=== PATIENT | female | born 1995 | race Caucasian/White ===

== ENCOUNTER 2024-05-19 10:39 | Outpatient (OUT) | payer SELFPAY ==
--- NOTE | 2024-05-19 10:42 | US_ITS ---
The [address] [address] Patient Name: SKYLER NORIEGA MRN: [id number] date: 1995 Sex: F Assigned Patient Location: [facility] Current Patient Location: [facility] Accession/Order Number: [id number] Exam Date: 05/19/2024 10:41 Report Date: 05/19/2024 11:29 At the request of: GERALDINE HOLLIDAY Procedure: US OB transvaginal EXAMINATION: US OB transvaginal HISTORY: VIABILITY COMPARISON: No relevant comparison available. FINDINGS: GESTATIONAL SAC: Present and normal appearing. YOLK SAC: Present and normal appearing. POLE: Present and normal appearing. CARDIAC: Present. UTERUS: Normal size and appearance. OVARIES: Right: Contains a 4.5 cm cyst. Left: Normal. CERVIX: 5.4 cm in length and closed. CUL-DE-SAC: Normal. OTHER: None. AGE BY LMP: 6 weeks 1 day KIERRA BY LMP: 01/11/2025 AGE BY US CRL: 6 weeks 3 days KIERRA BY US CRL: 01/09/2025 US/US OB transvaginal IMPRESSION: 1. Single live intrauterine . Electronically authenticated by: MARIBELL LYNN Date: 05/19/2024 11:29
== END 2024-05-19 10:40 | disposition home or self-care (01) ==
LOC: NOMS 10:40
PROVIDERS: Visit Provider Obstetrics & Gynecology
DX: Z34.91 Encounter for supervision of normal pregnancy, unspecified, first trimester (principal)
CPT/HCPCS: 76817

== ENCOUNTER 2024-06-13 08:18 | Outpatient (OUT) | payer MEDICAID, SELFPAY ==
--- OUTSIDE RECORDS SUMMARY | 2024-06-13 08:25 | XMS_ITS | CCD ---
Author Organization [facility] Care Team Providers Care Catalyst Concentration Operator Name Role Phone Ct LEAL, Chayo Mina Attending Unavailable Jake Miramontes MD Primary Care Provider 1( [phone] MG ., DR CHANDLER Admitting Unavailable REQUEST, NONE LISTED Primary Care Unavaila ble MG ., DR CHANDLER Consulting Unavailable MG ., DR CHANDLER Attending Unavailable MG ., DR CHANDLER Admitting Unavailable REQUEST, NONE LISTED Primary Care Unavaila ble MG ., DR CHANDLER Consulting Unavailable MG ., DR CHANDLER Attending Unavailable MG ., DR CHANDLER Consulting Unavailable REQUEST, NONE LISTED Primary Care Unavaila ble MG ., DR CHANDLER Attending Unavailable MG ., DR CHANDLER Admitting Unavailable MG ., DR CHANDLER Admitting Unavailable REQUEST, DR MIRANDA LISTED Primary Care Unavaila ble ANNADA, DR NATALIE Yung Consulting Unavailable MG ., DR CHANDLER Attending Unavailable MG ., DR CHANDLER Consulting Unavailable REQUEST, DR NONE LISTED Consulting Unavaila BRET Way Attending Unavailable BRET MANUEL Admitting Unavailable JAKE MIRAMONTES Primary Care Unavailable Rumschlag DO, Karina K Primary Care Provider RUMSCHLAG, KARINA K Referring Unavailable RUMSCHLAG, KARINA K Primary Care Unavailable MOMITESH, HALI F Referring Unavailable RUMSCHLAG, KARINA K Primary Care Unavailable JAKE MIRAMONTES Referring Unavailable RUMSCHLAG, KARINA K Primary Care Unavailable RUMSCHLAG, KARINA K Referring Unavailable RUMSCHLAG, KARINA K Primary Care Unavailable MOOSA, HALI F Referring Unavailable RUMSCHLAG, KARINA K Primary Care Unavailable RUMSCHLAG, KARINA K Referring Unavailable RUMSCHLAG, KARINA K Primary Care Unavailable RUMSCHLAG, KARINA K Referring Unavailable RUMSCHLAG, KARINA K Primary Care Unavailable RUMSCHLAG, KARINA K Primary Care Unavailable BEN KENNEDY Attending Unavailable BEN KENNEDY Attending Unavailable BEN KENNEDY Referring Unavailable RUMSCHLAG, KARINA K Primary Care Unavailable MG, JAKE R Referring Unavailable RUMSCHLAG, KARINA K Primary Care Unavailable MG, JAKE R Referring Unavailable MG, JAKE R Primary Care Unavailable MG, JAKE R Referring Unavailable MG, JAKE R Primary Care Unavailable MG, JAKE R Referring Unavailable MG, JAKE R Primary Care Unavailable MG, JAKE R Referring Unavailable MG, JAKE R Primary Care Unavailable MG, JAKE R Referring Unavailable MG, JAKE R Primary Care Unavailable MG, JAKE R Primary Care Unavailable ROGER MCKENZIE Attending Unavailable MG, JAKE R Referring Unavailable MG, JAKE R Primary Care Unavailable MG, JAKE R Primary Care Unavailable NATALIE PATTEN Attending Unavailable DOTTIE DIAZ Referring Unavailable RUMSCHLAG, KARINA K Primary Care Unavailable RUMSCHLAG, KARINA K Referring Unavailable RUMSCHLAG, KARINA K Primary Care Unavailable MG, JAKE R Referring Unavailable RUMSCHLAG, KARINA K Primary Care Unavailable MG, JAKE R Referring Unavailable RUMSCHLAG, KARINA K Primary Care Unavailable Allergies Allergy Classification Reported Allergen(s) Allergy Type Date of Onset Reaction(s) Facility (3 sources) Latex; Translations: [LATEX] Propensity to adverse reactions to drug 0 Rash [facility] (3 sources) Sulfamethoxazole / Trimethoprim; Translations: [SULFAMETHOXAZOLE-TR IMETHOPRIM] Drug Allergy 7 Hives [facility] Work Phone: Medications Current Medications Medication Drug Class(es) Dates Sig (Normalized) Sig (Original) acetaminophen 325 mg / oxyCODONE hydrochloride 5 mg oral tablet (2 sources) Opioid Agonist Start: 07-04-2022 End: 07-11-2022 take 1 tablet by mouth every six hours as needed for pain oxyCODONE-acetamino phen (PERCOCET) 5-325 MG per tablet Indications: S/P laparoscopic sleeve gastrectomy Take 1 tablet by mouth every 6 hours as needed for Pain for up to 7 days. 28 tablet 0 07/04/2022 07/11/2022 Active Start: 07-03-2022 oxyCODONE-acet aminophen (PERCOCET) 5-325 MG per tablet 1 tablet albuterol 0.833 mg/ml / ipratropium bromide 0.167 mg/ml inhalation solution (1 source) Anticholinergic, beta2-Adrenergic Agonist Start: 07-03-2022 ipratropium-albuterol (DUONEB) nebulizer solution 1 ampule benzocaine 15 mg / menthol 3.6 mg oral lozenge (1 source) Standardized Chemical Allergen Start: 07-04-2022 benzocaine-menthol (CEPACOL SORE THROAT) lozenge 1 lozenge cyclobenzaprine hydrochloride 10 mg oral tablet (2 sources) Muscle Relaxant Start: 07-03-2022 End: 07-14-2022 take 1 tablet by mouth three times daily as needed for muscle spasms cyclobenzaprine (FLEXERIL) 10 MG tablet Take 1 tablet by mouth 3 times daily as needed for Muscle spasms 28 tablet 0 07/04/2022 07/14/2022 Active 0.4 ml enoxaparin sodium 100 mg/ml prefilled syringe (1 source) Low Molecular Weight Heparin Start: 07-04-2022 End: 07-18-2022 enoxaparin (LOVENOX) 40 MG/0.4ML Inject 0.4 mLs into the skin 2 times daily for 14 days 11.2 mL 0 07/04/2022 07/18/2022 Active famotidine 20 mg oral tablet (1 source) Histamine-2 Receptor Antagonist Start: 11-02-2023 take 1 tablet by mouth in the morning, then take 1 tablet by mouth at bedtime famotidine (PEPCID) 20 mg tablet Take 1 tablet (20 mg total) by mouth in the morning and 1 tablet (20 mg total) before bedtime. 20 tablet 0 11/02/2023 Active 1 ml heparin sodium, porcine 5000 unt/ml prefilled syringe (2 sources) Unfractionated Heparin, Anti-coagulant Start: 07-03-2022 End: 07-03-2022 heparin (porcine) injection 5,000 Units 1 ml HYDROmorphone hydrochloride 1 mg/ml cartridge (4 sources) Opioid Agonist Start: 07-03-2022 HYDROmorphone (DILAUDID) injection 1 mg Start: 07-03-2022 End: 07-03-2022 HYDROmorphone (DILAUDID) 1 M G/ML injection Start: 07-03-2022 End: 07-03-2022 HYDROmorphone (DILAUDID) inj ection 0.5 mg Start: 07-03-2022 End: 07-03-2022 HYDROmorphone (DILAUDID) inj ection 0.25 mg metFORMIN hydrochloride 500 mg oral tablet (1 source) Biguanide take 1 tablet by mouth in the morning, then take 1 tablet by mouth at bedtime metFORMIN (GLUCOPHAGE) 500 mg tablet Take 1 tablet (500 mg total) by mouth in the morning and 1 tablet (500 mg total) before bedtime. 0 Active lzoidosc-teir-FM-calc ium &mins (THERAGRAN-M) 9 mg iron-400 mcg tablet (1 source) cnfkalty-blaj-FX -ca lcium &mins (THERAGRAN-M) 9 mg iron-400 mcg tablet Take 1 tablet by mouth in the morning. 0 Active 2 ml ondansetron 2 mg/ml injection (1 source) Serotonin-3 Receptor Antagonist Start: 07-03-20 ondansetron (ZOFRAN) injection 4 mg pantoprazole 40 mg delayed release oral tablet (1 source) Proton Pump Inhibitor Start: 07-03-20 pantoprazole (PROTONIX) tablet 40 mg phenol 14 mg/ml mouthwash (1 source) Start: 07-04-20 phenol 1.4 % mouth spray 1 spray promethazine hydrochloride 25 mg oral tablet (2 sources) Phenothiazine Start: 07-04-20 End: 07-11-20 take 1 tablet by mouth every six hours as needed for nausea promethazine (PHENERGAN) 25 MG tablet Take 1 tablet by mouth every 6 hours as needed for Nausea 28 tablet 0 07/04/2022 07/11/2022 Active Start: 07-03-2022 promethazine ( PHENERGAN) tablet 25 mg 72 hr scopolamine 0.0139 mg/hr transdermal system (2 sources) Anticholinergic Start: 07-06-2022 scopolamine (TRANSDERM-SCOP) transdermal patch 1 patch Start: 07-03-2022 scopolamine (T RANSDERM-SCOP) transdermal patch 1 patch simethicone 80 mg chewable tablet (1 source) Start: 07-04-2022 simethicone (M YLICON) chewable tablet 40 mg 5 ml sodium chloride 9 mg/ml injection (3 sources) Start: 07-03-2022 0.9 % sodium c hloride infusion Start: 07-03-2022 sodium chlorid e flush 0.9 % injection 5-40 mL Completed/Discontinued Medications Medication Drug Class(es) Dates Sig (Normalized) Sig (Original) aprepitant 40 mg oral capsule (1 source) Substance P/Neurokinin-1 Receptor Antagonist Start: 07-04-2022 End: 07-04-2022 aprepitant (EMEND) capsule 80 mg calcium chloride 0.0014 meq/ml / potassium chloride 0.004 meq/ml / sodium chloride 0.103 meq/ml / sodium lactate 0.028 meq/ml injectable solution (2 sources) Start: 07-03-2022 End: 07-04-2022 lactated ringers infusion ceFAZolin (ANCEF) 2000 mg in sterile water 20 mL IV syringe (1 source) Start: 07-03-2022 End: 07-04-2022 ceFAZolin (ANCEF) 2000 mg in sterile water 20 mL IV syringe 1 ml ketorolac tromethamine 15 mg/ml cartridge (1 source) Nonsteroidal Anti-inflammatory Drug, Cyclooxygenase Inhibitor Start: 07-04-2022 End: 07-04-2022 ketorolac (TORADOL) injection 15 mg 2 ml midazolam 1 mg/ml injection (1 source) Benzodiazepine Start: 07-03-2022 End: 07-03-2022 midazolam PF (VERSED) injection 2 mg triamcinolone acetonide 0.25 mg/ml topical cream (1 source) Corticosteroid Start: 02-15-2022 End: 07-04-2022 triamcinolone (KENALOG) 0.025 % cream apply topically to affected area ON HANDS, LEGS, AND ARMS twice a... (REFER TO PRESCRIPTION NOTES). 0 02/15/2022 07/04/2022 Discontinued (Stop Taking at Discharge) Problems Active Problems Problem Classification Problem Date Documented Da te Episodic/Chronic Esophageal disorders (3 sources) Gastroesophageal reflux disease; Translations: [Gastro-esophageal reflux disease without esophagitis] Onset: 4 Chronic Essential hypertension (2 sources) Essential hypertension; Translations: [Essential (primary) hypertension] Onset: 2 01-31-2022 Chronic Female infertility (6 sources) Female infertility, unspecified; Translations: [Female infertility associated with anovulation] Onset: 3 Chronic Hemorrhage during ; abruptio placenta; placenta previa (1 source) Hemorrhage in early , unspecified; Translations: [Hemorrhage in early , unspecified] Onset: 4 Episodic Immunizations and screening for infectious disease (1 source) Encounter for screening for human papillomavirus (HPV); Translations: [ENC SCREENING HUMAN PAPILLOMAVIRUS] Onset: 3 Episodic Menstrual disorders (1 source) Amenorrhea, unspecified; Translations: [Amenorrhea, unspecified] Onset: 4 Chronic Nutritional deficiencies (1 source) Vitamin D deficiency, unspecified; Translations: [Vitamin D deficiency, unspecified] Onset: 4 Chronic Other endocrine disorders (1 source) Polycystic ovarian syndrome; Translations: [Polycystic ovarian syndrome] Onset: 4 Chronic Other female genital disorders (1 source) Abnormal uterine and vaginal bleeding, unspecified; Translations: [Abnormal uterine and vaginal bleeding, unspecified] Onset: 4 Chronic Other female genital disorders (1 source) H/O: Disorder; Translations: [Personal history of other diseases of the female genital tract] 12-18-2023 Episodic Other gastrointestinal disorders (2 sources) History of sleeve gastrectomy; Translations: [Bariatric surgery status] Onset: 2 Episodic Other nutritional; endocrine; and metabolic disorders (1 source) Obesity; Translations: [Obesity, unspecified] Chronic Other nutritional; endocrine; and metabolic disorders (1 source) Body mass index 30+ - obesity; Translations: [Obesity, unspecified] 01-31-2022 Chronic Other and delivery including normal (1 source) Encounter for test, result positive; Translations: [Encounter for test, result positive] Onset: 4 Episodic Ovarian cyst (4 sources) Unspecified ovarian cyst, right side; Translations: [UNSPECIFIED OVARIAN CYST RIGHT SIDE] Onset: 3 Episodic Residual codes; unclassified (1 source) Less than 8 weeks gestation of ; Translations: [Less than 8 weeks gestation of ] Onset: 4 Episodic Thyroid disorders (3 sources) Autoimmune thyroiditis; Translations: [Hypothyroidism, unspecified] Onset: 4 Chronic Unclassified (1 source) Vaginal Bleeding - Onset: 4 Unclassified (1 source) Chest Pain, Numbness in arm Onset: 4 Past or Other Problems Problem Classification Problem Date Documented Da te Episodic/Chronic Abdominal pain (1 source) Pelvic and perineal pain; Translations: [Pelvic and perineal pain] Onset: 12-13-2023 Episodic Biliary tract disease (2 sources) Cholecystitis, unspecified; Translations: [Calculus of gallbladder without cholecystitis without obstruction] Onset: 11-01-2023 Episodic Nonspecific chest pain (2 sources) Chest pain, unspecified; Translations: [Chest pain] Onset: 11-01-2023 Episodic Other endocrine disorders (1 source) Endocrine disorder, unspecified; Translations: [Endocrine disorder, unspecified] Onset: 2024 Episodic Other female genital disorders (1 source) Personal history of other diseases of the female genital tract; Translations: [Personal history of other diseases of the female genital tract] Onset: 2024 Episodic Other gastrointestinal disorders (2 sources) Bariatric surgery status; Translations: [Bariatric surgery status] Onset: 07-03-2022 Episodic Other gastrointestinal disorders (1 source) Diarrhea, unspecified; Translations: [Diarrhea, unspecified] Onset: 01-03-2024 Episodic Other nutritional; endocrine; and metabolic disorders (1 source) Overweight; Translations: [Overweight] Onset: 11-16-2023 Episodic Other screening for suspected conditions (not mental disorders or infectious disease) (6 sources) Encounter for screening for malignant neoplasm of cervix; Translations: [Other specified abnormal findings of blood chemistry] Onset: 2023 Episodic Residual codes; unclassified (2 sources) Acquired absence of other specified parts of digestive tract; Translations: [Acquired absence of other specified parts of digestive tract] Onset: 11-27-2023 Episodic Unclassified (1 source) Onset: 04-17-2021 04-17-2021 Results Test Name Value Interpretation Reference Range Facility CBC AND AUTO DIFFon 06-06-20 ABSOLUTE BASOPHIL 0.0 X10E9/L Normal 0.0-0.2 [facility] Comment on above: Performed By: #### Miladys CAT CMP, ####[facility] ([id number])[address] [place] [address] 79490 ABSOLUTE NEUTROPHIL 4.8 X10E9/L Normal 1.5-6.6 [facility] Comment on above: Performed By: #### Miladys CAT CMP, ####[facility] ([id number])[address] [place] [address] 34863 Basophils/100 WBC (Bld) 0.3 % Normal [facility] Comment on above: Performed By: #### Miladys CAT CMP, ####[facility] ([id number])[address] [place] [address] 45590 Eosinophils (Bld) [#/Vol] 0.4 10*3/uL Normal 0.0-0.4 [facility] Comment on above: Performed By: #### Miladys CAT CMP, ####[facility] ([id number] [place] [address] 62007 Eosinophils/100 WBC (Bld) 5.5 % Normal [facility] Comment on above: Performed By: #### Miladys CAT CMP, ####[facility] ([id number])[address] [place] [address] 87916 Erythrocyte distribution width (RBC) [Ratio] 13.1 % Normal 11.5-15.0 [facility] Comment on above: Performed By: #### Miladys CAT, CMP, ####[facility] ([id number])[address] [place] [address] 50577 Hematocrit (Bld) [Volume fraction] 32.4 % Low 35-47 [facility] Comment on above: Performed By: #### Miladys CAT CMP, ####[facility] ([id number])[address] [place] [address] 35172 Hemoglobin (Bld) [Mass/Vol] 11.2 g/dL Low 11.7-15.5 [facility] Comment on above: Performed By: #### Miladys CAT CMP, ####[facility] ([id number])[address] [place] [address] 82176 Lymphocytes (Bld) [#/Vol] 1.7 10*3/uL Normal 1.0-3.5 [facility] Comment on above: Performed By: #### Miladys CAT CMP, ####[facility] ([id number])[address] [place] [address] 87084 Lymphocytes/100 WBC (Bld) 21.9 % Normal [facility] Comment on above: Performed By: #### Miladys CAT CMP, ####[facility] ([id number])[address] [place] [address] 06587 MCH (RBC) [Entitic mass] 31.7 pg Normal 27-34 [facility] Comment on above: Performed By: #### Miladys CAT CMP, ####[facility] ([id number])[address] [place] [address] 48186 MCHC (RBC) [Mass/Vol] 34.5 g/dL Normal 32-36 [facility] Comment on above: Performed By: #### Miladys CAT CMP, ####[facility] ([id number])[address] [place] [address] 02279 MCV (RBC) [Entitic vol] 92 fL Normal 80-100 [facility] Comment on above: Performed By: #### Miladys CAT CMP, ####[facility] ([id number])[address] [place] [address] 81546 Monocytes (Bld) [#/Vol] 0.8 10*3/uL Normal 0-0.9 [facility] Comment on above: Performed By: #### Miladys CAT CMP, ####[facility] ([id number])[address] [place] [address] 92807 Monocytes/100 WBC (Bld) 10.4 % Normal [facility] Comment on above: Performed By: #### Miladys CAT CMP, ####[facility] ([id number])[address] [place] [address] 47278 Neutrophils/100 WBC (Bld) 61.9 % Normal [facility] Comment on above: Performed By: #### Miladys CAT, CMP, ####[facility] ([id number])[address] [place] [address] 05839 Platelet mean volume (Bld) [Entitic vol] 6.9 fL Low 7-12 [facility] Comment on above: Performed By: #### Miladys CAT CMP, ####[facility] ([id number])[address] [place] [address] 88281 Platelets (Bld) [#/Vol] 172 10*3/uL Normal 150-450 [facility] Comment on above: Performed By: #### Miladys CAT CMP, ####[facility] ([id number])[address] [place] [address] 62466 RBC COUNT 3.54 X10E12/L Low 3.80-5.20 [facility] Comment on above: Performed By: #### Miladys CAT CMP, ####[facility] ([id number])[address] [place] [address] 05414 WBC (Bld) [#/Vol] 7.7 10*3/uL Normal 4.0-11.0 [facility] Comment on above: Performed By: #### C EMORY, CMP, ####[facility] ([id number])[address] [place] [address] 48705 COMPREHENSIVE METABOLIC PANE Augustin 06-06-2024 Albumin [Mass/Vol] 3.2 g/dL Normal 3.2-5.3 [facility] Comment on above: Performed By: #### C EMORY, CMP, ####[facility] ([id number])[address] [place] [address] 61368 ALP [Catalytic activity/Vol] 38 U/L Low 39-130 [facility] Comment on above: Performed By: #### C BCA, CMP, ####[facility] ([id number])[address] [place] [address] [place] [address] ALT [Catalytic activity/Vol] 54 U/L High 0-31 [facility] Comment on above: Performed By: #### C BCA, CMP, ####[facility] ([id number])[address] [place] [address] [place] [address] Anion gap [Moles/Vol] 1 mmol/L Low 5-15 [facility] Comment on above: Performed By: #### C BCA, CMP, ####[facility] ([id number])[address] [place] [address] 08048 AST [Catalytic activity/Vol] 35 U/L Normal 0-41 [facility] Comment on above: Performed By: #### C BCA, CMP, ####[facility] ([id number])[address], [place] [address] Bilirubin [Mass/Vol] 0.4 mg/dL Normal 0.3-1.2 [facility] Comment on above: Performed By: #### C VINCENZO CAT, ####[facility] ([id number])[address] [place] [address] [place] [address] Calcium [Mass/Vol] 8.3 mg/dL Low 8.5-10.5 [facility] Comment on above: Performed By: #### C VINCENZO CAT, ####[facility] ([id number])[address] [place] [address] 11723 Chloride [Moles/Vol] 103 mmol/L Normal 98-109 [facility] Comment on above: Performed By: #### C VINCENZO CAT, ####[facility] ([id number])[address] [place] [address] 73054 CO2 [Moles/Vol] 26 mmol/L Normal 22-32 [facility] Comment on above: Performed By: #### C VINCENZO CAT, ####[facility] ([id number])[address] [place] [address] 05406 Creatinine [Mass/Vol] 0.64 mg/dL Normal 0.40-1.00 [facility] Comment on above: Result Comment: METH OD TRACEABLE TO IDMS STANDARD Performed By: #### C VINCENZO CAT, ####[facility] ([id number])[address] [place] [address] [place] [address] eGFR (CKD-EPI) NON-RACE DEPENDENT >90 Normal >59 [facility] Comment on above: Result Comment: Reported eGFR is based on the CKD-EPI 2020 equation that does not use a race coefficient. Performed By: #### C EMORY CMP, ####[facility] ([id number])[address] [place] [address] [place] [address] Glucose [Mass/Vol] 79 mg/dL Normal 65-99 [facility] Comment on above: Performed By: #### Miladys CAT [facility], ####[facility] ([id number])[address] [place] [address] 81367 Potassium [Moles/Vol] 3.7 mmol/L Normal 3.5-5.0 [facility] Comment on above: Performed By: #### Miladys CAT CMP, ####[facility] ([id number])[address] [place] [address] 20507 Protein [Mass/Vol] 6.1 g/dL Normal 6.0-8.0 [facility] Comment on above: Performed By: #### Miladys CAT CMP, ####[facility] ([id number])[address] [place] [address] 73961 Sodium [Moles/Vol] 130 mmol/L Low 134-146 [facility] Comment on above: Performed By: #### Miladys CAT [facility], ####[facility] ([id number])[address] [place] [address] 93182 Urea nitrogen [Mass/Vol] 15 mg/dL Normal 5-23 [facility] Comment on above: Performed By: #### Miladys CAT [facility], ####[facility] ([id number])[address] [place] [address] 57229 HCG.beta subunit IA 3rd IS Q non 06-06-2024 HCG.beta subunit Qn 019189 m[IU]/mL Normal [facility] Comment on above: Result Comment: NEW REFERENCE RANGE WEEKS (SINCE LMP) MIU/mL 3 WEEKS 5 - 50 4 WEEKS 5 - 426 5 WEEKS 18 - 7,340 6 WEEKS 1,080 - 56,500 7-8 WEEKS 7,650 - 229,000 9-12 WEEKS 25,700 - 288,000 13-16 WEEKS 13,300 - 254,000 17-24 WEEKS 4,060 - 165,400 25-40 WEEKS 3,640 - 117,000 MALES AND NON- FEMALES - <5 MIU/mL This test has been FDA approved for use in only. Elevated levels are not necessarily diagnostic for trophoblastic or nontrophoblastic neoplasms. Performed By: #### C BCA, CMP, [id number] ####[facility] ([id number])[address] [place] [address] 26760 URN MACROSCOPIC NURon 2023 BILIRUBIN CHLOÉ Negative Normal NEG [facility] Comment on above: Performed By: #### N UM ####[facility] ([id number])[address] [place] [address] 87120 BLOOD/HGB CHLOÉ Trace Abnormal NEG [facility] Comment on above: Performed By: #### N UM ####[facility] ([id number])[address] [place] [address] 43033 GLUCOSE CHLOÉ Negative Normal NEG [facility] Comment on above: Performed By: #### N UM ####[facility] ([id number])[address] [place] [address] 72750 KETONES CHLOÉ Negative Normal NEG [facility] Comment on above: Performed By: #### N UM ####[facility] ([id number])[address] [place] [address] 72190 LEUKOCYTE ESTERASE CHLOÉ Negative Normal NEG [facility] Comment on above: Performed By: #### N UM ####[facility] ([id number])[address] [place] [address] 05324 NITRITE CHLOÉ Negative Normal NEG [facility] Comment on above: Performed By: #### N UM ####[facility] ([id number])[address] [place] [address] [place] [address] PH CHLOÉ 5.0 Normal 5.0-8.5 [facility] Comment on above: Performed By: #### N UM ####[facility] ([id number])[address] [place] [address] [place] [address] PROTEIN CHLOÉ Negative Normal NEG [facility] Comment on above: Performed By: #### N UM ####[facility] ([id number])[address] [place] [address] [place] [address] SPECIFIC GRAVITY CHLOÉ >=1.030 Normal 1.003-1.035 [facility] Comment on above: Performed By: #### N UM ####[facility] ([id number])[address] [place] [address] UROBILINOGEN CHLOÉ 0.2 eu/dL Normal <1.1 [facility] Comment on above: Performed By: #### N UM ####[facility] ([id number])[address] [place] [address] HCG ( test) Ql (U)o n 05-27-2024 Beta HCG ( test) Ql (U) Positive Abnormal NEG [facility] Comment on above: Performed By: #### 2 106-3 ####[facility] ([id number])[address] [place] [address] [place] [address] URN MACROSCOPIC NURon 2023 BILIRUBIN CHLOÉ Negative Normal NEG [facility] Comment on above: Performed By: #### N UM ####[facility] ([id number])[address] [place] [address] [place] [address] BLOOD/HGB CHLOÉ Small Abnormal NEG [facility] Comment on above: Performed By: #### N UM ####[facility] ([id number])[address] [place] [address] [place] [address] GLUCOSE CHLOÉ Negative Normal NEG [facility] Comment on above: Performed By: #### N UM ####[facility] ([id number])[address] [place] [address], [place] [address] KETONES CHLOÉ Negative Normal NEG [facility] Comment on above: Performed By: #### N UM ####[facility] ([id number])[address] [place] [address] [place] [address] LEUKOCYTE ESTERASE CHLOÉ Negative Normal NEG [facility] Comment on above: Performed By: #### N UM ####[facility] ([id number])[address] [place] [address] NITRITE CHLOÉ Negative Normal NEG [facility] Comment on above: Performed By: #### N UM ####[facility] ([id number])[address] [place] [address] PH CHLOÉ 5.5 Normal 5.0-8.5 [facility] Comment on above: Performed By: #### N UM ####[facility] ([id number])[address] [place] [address] [place] [address] PROTEIN CHLOÉ Negative Normal NEG [facility] Comment on above: Performed By: #### N UM ####[facility] ([id number])[address] [place] [address] [place] [address] SPECIFIC GRAVITY CHLOÉ >=1.030 Normal 1.003-1.035 [facility] Comment on above: Performed By: #### N UM ####[facility] ([id number])[address] [place] [address] [place] [address] UROBILINOGEN CHLOÉ 1.0 eu/dL Normal <1.1 [facility] Comment on above: Performed By: #### N UM ####[facility] ([id number])[address] [place] [address] [place] [address] HCG.beta subunit IA 3rd IS Q non 05-14-2024 [place] [address] m[IU]/mL Normal [facility] Comment on above: Result Comment: NEW REFERENCE RANGE WEEKS (SINCE LMP) MIU/mL 3 WEEKS 5 - 50 4 WEEKS 5 - 426 5 WEEKS 18 - 7,340 6 WEEKS 1,080 - 56,500 7-8 WEEKS 7,650 - 229,000 9-12 WEEKS 25,700 - 288,000 13-16 WEEKS 13,300 - 254,000 17-24 WEEKS 4,060 - 165,400 25-40 WEEKS 3,640 - 117,000 MALES AND NON- FEMALES - <5 MIU/mL This test has been FDA approved for use in only. Elevated levels are not necessarily diagnostic for trophoblastic or nontrophoblastic neoplasms. Performed By: #### C , 91996-6, [facility] #### [facility] ([id number]) [address] [place] [address], [address] [place] [address] HCG.beta subunit IA 3rd IS Q non 05-11-2024 [place] [address] m[IU]/mL Normal [facility] Comment on above: Result Comment: NEW REFERENCE RANGE WEEKS (SINCE LMP) MIU/mL 3 WEEKS 5 - 50 4 WEEKS 5 - 426 5 WEEKS 18 - 7,340 6 WEEKS 1,080 - 56,500 7-8 WEEKS 7,650 - 229,000 9-12 WEEKS 25,700 - 288,000 13-16 WEEKS 13,300 - 254,000 17-24 WEEKS 4,060 - 165,400 25-40 WEEKS 3,640 - 117,000 MALES AND NON- FEMALES - <5 MIU/mL This test has been FDA approved for use in only. Elevated levels are not necessarily diagnostic for trophoblastic or nontrophoblastic neoplasms. Performed By: #### Miladys DIALLO, 93966-2, AGUILA, P #### [facility] ([id number]) [address], [address] [place] [address] TSH Qnon 05-11-2024 TSH 1.06 uIU/mL Normal 0.49-4.67 [facility] Comment on above: Performed By: #### Miladys DIALLO, 75259-0, THYR, P #### [facility] ([id number]) [address], [address] [place] [address] HCG.beta subunit IA 3rd IS Q non 05-08-2024 HCG.beta subunit Qn 6446 m[IU]/mL Normal [facility] Comment on above: Result Comment: NEW REFERENCE RANGE WEEKS (SINCE LMP) MIU/mL 3 WEEKS 5 - 50 4 WEEKS 5 - 426 5 WEEKS 18 - 7,340 6 WEEKS 1,080 - 56,500 7-8 WEEKS 7,650 - 229,000 9-12 WEEKS 25,700 - 288,000 13-16 WEEKS 13,300 - 254,000 17-24 WEEKS 4,060 - 165,400 25-40 WEEKS 3,640 - 117,000 MALES AND NON- FEMALES - <5 MIU/mL This test has been FDA approved for use in only. Elevated levels are not necessarily diagnostic for trophoblastic or nontrophoblastic neoplasms. Performed By: #### Miladys DIALLO, 74145-4, THYEber, P #### [facility] ([id number]) [address], [address] [place] [address] HCG.beta subunit IA 3rd IS Q non 05-06-2024 [place]CG.[place] subunit Qn 3140 m[IU]/mL Normal [facility] Comment on above: Result Comment: NEW REFERENCE RANGE WEEKS (SINCE LMP) MIU/mL 3 WEEKS 5 - 50 4 WEEKS 5 - 426 5 WEEKS 18 - 7,340 6 WEEKS 1,080 - 56,500 7-8 WEEKS 7,650 - 229,000 9-12 WEEKS 25,700 - 288,000 13-16 WEEKS 13,300 - 254,000 17-24 WEEKS 4,060 - 165,400 25-40 WEEKS 3,640 - 117,000 MALES AND NON- FEMALES - <5 MIU/mL This test has been FDA approved for use in only. Elevated levels are not necessarily diagnostic for trophoblastic or nontrophoblastic neoplasms. Performed By: #### Miladys DIALLO, 32248-9, PEARL SHEEHAN #### [facility] ([id number]) [address] [place] [address], [address] [place] [address] HCG.beta subunit IA 3rd IS Q non 05-01-2024 HCG.beta subunit Qn 560 m[IU]/mL Normal [facility] Comment on above: Result Comment: NEW REFERENCE RANGE WEEKS (SINCE LMP) MIU/mL 3 WEEKS 5 - 50 4 WEEKS 5 - 426 5 WEEKS 18 - 7,340 6 WEEKS 1,080 - 56,500 7-8 WEEKS 7,650 - 229,000 9-12 WEEKS 25,700 - 288,000 13-16 WEEKS 13,300 - 254,000 17-24 WEEKS 4,060 - 165,400 25-40 WEEKS 3,640 - 117,000 MALES AND NON- FEMALES - <5 MIU/mL This test has been FDA approved for use in only. Elevated levels are not necessarily diagnostic for trophoblastic or nontrophoblastic neoplasms. Performed By: #### Miladys DIALLO, 47202-9, PEARL SHEEHAN #### [facility] ([id number]) [address], [address] [place] [address] HCG.beta subunit IA 3rd IS Q non 04-28-2024 HCG.beta subunit Qn 159 m[IU]/mL Normal [facility] Comment on above: Result Comment: NEW REFERENCE RANGE WEEKS (SINCE LMP) MIU/mL 3 WEEKS 5 - 50 4 WEEKS 5 - 426 5 WEEKS 18 - 7,340 6 WEEKS 1,080 - 56,500 7-8 WEEKS 7,650 - 229,000 9-12 WEEKS 25,700 - 288,000 13-16 WEEKS 13,300 - 254,000 17-24 WEEKS 4,060 - 165,400 25-40 WEEKS 3,640 - 117,000 MALES AND NON- FEMALES - <5 MIU/mL This test has been FDA approved for use in only. Elevated levels are not necessarily diagnostic for trophoblastic or nontrophoblastic neoplasms. Performed By: #### C Bisi DIALLO31-1, THYEber, PEARL #### [facility] ([id number]) [address], [address] [place] [address] FREE T3on 02-14-2024 Free T3 [Mass/Vol] 3.94 pg/mL High 2.50-3.90 [facility] Comment on above: Performed By: #### Bisi Hook MP31-1, THYEber, AHP #### [facility] ([id number]) [address], [address] [place] [address] THYROID PROFILEon 02-14-2024 Free T4 [Mass/Vol] 0.91 ng/dL Normal 0.61-1.60 [facility] Comment on above: Performed By: #### Mag Hook MP-1, THYEber, AHP #### [facility] ([id number]) [address], [address] [place] [address] TSH 0.52 uIU/mL Normal 0.49-4.67 [facility] Comment on above: Performed By: #### Mag Hook MP-1, THYR, AHP #### [facility] ([id number]) [address], [address] [place] [address] THYROPEROXIDASE ABon 024 TPO Ab Qn 403 [IU]/mL High <10 [facility] Comment on above: Performed By: #### C YOEL 88017-9, THYEber, AHKeenan #### [facility] ([id number]) [address] [facility], [address] [place] [address] Thyroid stimulating immunogl obulins Qn (S)on 02-14-2024 TSI See Below Normal [facility] Comment on above: Result Comment: NOTE TEST RESULT FLAG UNIT REF.RANGE ------ TSI Qualitative Positive A Negative TSI 1.28 H IU/L <0.55 Thyroid Stimulating Immunoglobulin test is used as an aid in diagnosis of autoimmune hyperthyroidism especially in patients with Grave's orbitopathy and dermopathy. Low positive TSH receptor stimulating antibody levels may occasionally be found in patients with autoimmune hypothyroidism. Clinical correlation is required. Test Performed By: [facility] [employer] [address] [place] [address] Shafting Cleaner: Eloy Dangelo III, M.D. CLIA #[id number] Performed By: #### Miladys DIALLO 31677-1, THYEber, PEARL #### [facility] ([id number]) [address], [address] [place] [address] ACUTE HEPATITIS PANELon 12-27 ANTI HCV W/PCR REFLX Non-Reactive Normal NRCT [facility] Comment on above: Result Comment: If recent infection suspected, recommend repeat testing (>2 months). Nmvgwg-gq-mfestu ratio is <0.80. Performed By: #### C YOEL, 32188-2, THYEber, DEEPAP #### [facility] ([id number]) [address], [address] [place] [address] HEPATITIS A IGM Non-Reactive Normal NRCT [facility] Comment on above: Performed By: #### C YOEL, 22179-2, THYR, AHP #### [facility] ([id number]) [address], [address] [place] [address] HEPATITIS B CORE IGM Negative Normal NEG [facility] Comment on above: Performed By: #### [place], [address]-6, THYR, AHP #### [facility] ([id number]) [address], [address] [place] [address] HEPATITIS B SURF AG Negative Normal NEG [facility] Comment on above: Performed By: #### C YOEL, 41871-3, THYR, AHP #### [facility] ([id number]) [address], [address] [place] [address] COMPREHENSIVE METABOLIC PANE Augustin 2024 Albumin [Mass/Vol] 3.8 g/dL Normal 3.2-5.3 [facility] Comment on above: Performed By: #### C YOEL, 58864-1, THYR, AHP #### [facility] ([id number]) [address], [address] [place] [address] ALP [Catalytic activity/Vol] 48 U/L Normal 39-130 [facility] Comment on above: Performed By: #### [place], 83335-5, THYR, AHP #### [facility] ([id number]) [address], [address] [place] [address] ALT [Catalytic activity/Vol] 38 U/L High 0-31 [facility] Comment on above: Performed By: #### C YOEL, 63484-4, THYR, AHP #### [facility] ([id number]) [address], [address] [place] [address] Anion gap [Moles/Vol] 9 mmol/L Normal 5-15 [facility] Comment on above: Performed By: #### C YOEL 80000-3, THYR, AHP #### [facility] ([id number]) [address], [address] [place] [address] AST [Catalytic activity/Vol] 32 U/L Normal 0-41 [facility] Comment on above: Performed By: #### Miladys DIALLO 94891-0, THYR, AHP #### [facility] ([id number]) [address], [address] [place] [address] Bilirubin [Mass/Vol] 0.9 mg/dL Normal 0.3-1.2 [facility] Comment on above: Performed By: #### Miladys DIALLO 48505-4, THYR, AHP #### [facility] ([id number]) [address], [address] [place] [address] Calcium [Mass/Vol] 8.8 mg/dL Normal 8.5-10.5 [facility] Comment on above: Performed By: #### Miladys DIALLO 36669-6, THYR, AHP #### [facility] ([id number]) [address], [address] [place] [address] Chloride [Moles/Vol] 104 mmol/L Normal 98-109 [facility] Comment on above: Performed By: #### Miladys DIALLO 57583-3, THYR, AHP #### [facility] ([id number]) [address], [address] [place] [address] CO2 [Moles/Vol] 26 mmol/L Normal 22-32 [facility] Comment on above: Performed By: #### Miladys DIALLO, 24426-8, THYR, AHP #### [facility] ([id number]) [address], [address] [place] [address] Creatinine [Mass/Vol] 0.64 mg/dL Normal 0.40-1.00 [facility] Comment on above: Result Comment: METH OD TRACEABLE TO IDMS STANDARD Performed By: #### C YOEL 75067-5, THYEber, PEARL #### [facility] ([id number]) [address], [address] [place] [address] eGFR (CKD-EPI) NON-RACE DEPENDENT >90 Normal >59 [facility] Comment on above: Result Comment: Reported eGFR is based on the CKD-EPI 2020 equation that does not use a race coefficient. Performed By: #### C Bisi DIALLO31-1, THYEber, PEARL #### [facility] ([id number]) [address], [address] [place] [address] Glucose [Mass/Vol] 80 mg/dL Normal 65-99 [facility] Comment on above: Performed By: #### Miladys DIALLO 62661-2, THYR, AHP #### [facility] ([id number]) [address], [address] [place] [address] Potassium [Moles/Vol] 3.7 mmol/L Normal 3.5-5.0 [facility] Comment on above: Performed By: #### C YOEL, 56922-0, THYR, AHP #### [facility] ([id number]) [address], [address] [place] [address] Protein [Mass/Vol] 6.8 g/dL Normal 6.0-8.0 [facility] Comment on above: Performed By: #### C YOEL 25013-7, THYR, AHP #### [facility] ([id number]) [address], [address] [place] [address] Sodium [Moles/Vol] 139 mmol/L Normal 134-146 [facility] Comment on above: Performed By: #### Miladys DIALLO 93823-8, THYR, AHP #### [facility] ([id number]) [address], [address] [place] [address] Urea nitrogen [Mass/Vol] 11 mg/dL Normal 5-23 [facility] Comment on above: Performed By: #### Miladys DIALLO, 50624-6, PEARL SHEEHAN #### [facility] ([id number]) [address], [address] [place] [address] Lipid 1996 panelon 4 Cholesterol [Mass/Vol] 94 mg/dL Low 150-200 [facility] Comment on above: Performed By: #### Miladys DIALLO, 13426-4, PEARL SHEEHAN #### [facility] ([id number]) [address], [address] [place] [address] Cholesterol in HDL [Mass/Vol] 43 mg/dL Normal >39 [facility] Comment on above: Result Comment: HDL <40 mg/dL - High Risk HDL > or = 40mg/dL- Desirable HDL >60 mg/dL - Negative Risk Performed By: #### Miladys DIALLO, 07921-6, PEARL SHEEHAN #### [facility] ([id number]) [address], [address] [place] [address] Cholesterol in LDL [Mass/Vol] 39 mg/dL Normal <130 [facility] Comment on above: Result Comment: LDL <100 mg/dL - Desirable LDL >160 mg/dL - High Risk Performed By: #### Miladys DIALLO, 67024-2, AGUILA, PEARL #### [facility] ([id number]) [address], [address] [place] [address] Cholesterol in VLDL [Mass/Vol] 12 mg/dL Normal 0-30 [facility] Comment on above: Performed By: #### Miladys DIALLO 40702-0, PEARL SHEEHAN #### [facility] ([id number]) [address], [address] [place] [address] CHOLESTEROL:HDL 2.2 Normal 1.0-5.0 [facility] Comment on above: Performed By: #### Miladys DIALLO 79666-1, PEARL SHEEHAN #### [facility] ([id number]) [address], [address] [place] [address] Triglyceride [Mass/Vol] 58 mg/dL Normal 27-150 [facility] Comment on above: Performed By: #### Miladys DIALLO, 75169-3, PEARL SHEEHAN #### [facility] ([id number]) [address], [address] [place] [address] Mullerian inhibiting substan ce [Mass/Vol]on 2024 ANTI MULLERIAN HORM See Below Normal [facility] Comment on above: Result Comment: NOTE TEST RESULT FLAG UNIT REF.RANGE ------ Anti Mclean Hormone 0.54 L ng/mL 0.58-8.13 Test Performed By: [facility] [employer] [address] [place] [address] Shafting Cleaner: Patti Jacobs III #[id number] Performed By: ###[place], [address]-3, AGUILA, PEARL #### [facility] ([id number]) [address], [address] [place] [address] Selenium [Mass/Vol]on 2023 SELENIUM, SER/PLASMA 108.6 ug/L Normal 23.0-190.0 [facility] Comment on above: Result Comment: NOTE INTERPRETIVE INFORMATION: Selenium, Serum or Plasma Elevated results may be due to contamination from skin or other collection-related issues, including the use of a noncertified metal-free collection/transport tube. If contamination concerns exist due to elevated levels of serum/plasma selenium, confirmation with a second specimen collected in a certified metal-free tube is recommended. Serum selenium levels can be used in the determination of deficiency or toxicity. Plasma and serum contains 75 percent of the selenium measured in whole blood and reflects recent dietary intake. Selenium deficiency can occur endemically or as a result of sustained TPN or restricted diets and has been associated with cardiomyopathy and may exacerbate hypothyroidism. Selenium toxicity is relatively rare. Excess intake of selenium can result in symptoms consistent with selenosis and include gastrointestinal upset, hair loss, white blotchy nails, and mild nerve damage. This test was developed and its performance characteristics determined by [employer]. It has not been cleared or approved by the [place] Food and Drug Administration. This test was performed in a CLIA certified laboratory and is intended for clinical purposes. Performed By: [facility] [address] [place] [address] Shafting Cleaner: Deangelo Rosario MD, PhD CLIA Number: [id number] Performed By: #### C YOEL, 10466-8, THYR, AHP #### [facility] ([id number]) [address], [address] [place] [address] THYROID PROFILEon 2024 Free T4 [Mass/Vol] 0.67 ng/dL Normal 0.61-1.60 [facility] Comment on above: Performed By: #### C YOEL, 11538-8, THYR, AHP #### [facility] ([id number]) [address], [address] [place] [address] TSH 2.55 uIU/mL Normal 0.49-4.67 [facility] Comment on above: Performed By: #### C YOEL, 63469-2, THYR, AHP #### [facility] ([id number]) [address], [address] [place] [address] VITAMIN E, SER/PLon 01-24-20 VIT E(ALPHA-TOCOPHEROL) 7.6 mg/L Normal 5.5-18.0 [facility] Comment on above: Result Comment: NOTE This test was developed and its performance characteristics determined by [facility] [employer]. It has not been cleared or approved by the [place] Food and Drug Administration. This test was performed in a CLIA certified laboratory and is intended for clinical purposes. Performed By: #### Miladys DIALLO 48422-6, AGUILA, DEEPAP #### [facility] ([id number]) [address], [address] [place] [address] VIT E(GAMMA-TOCOPHEROL) 0.3 mg/L Normal 0.0-6.0 [facility] Comment on above: Result Comment: NOTE Performed By: [facility] [address] [place] [address] Shafting Cleaner: Deangelo Rosario MD, PhD CLIA Number: [id number] Performed By: #### Miladys DIALLO 05447-6, THYR, AHP #### [facility] ([id number]) [address], [address] [place] [address] LIVER PANELon 01-18-2024 Albumin [Mass/Vol] 3.8 g/dL Normal 3.2-5.3 [facility] Comment on above: Performed By: #### Miladys DIALLO 59792-5, AGUILA, AHP #### [facility] ([id number]) [address], [address] [place] [address] ALP [Catalytic activity/Vol] 44 U/L Normal 39-130 [facility] Comment on above: Performed By: #### Miladys DIALLO 27238-1, THYR, AHP #### [facility] ([id number]) [address], [address] [place] [address] ALT [Catalytic activity/Vol] 33 U/L High 0-31 [facility] Comment on above: Performed By: #### Bisi Hook MP31-1, THYR, AHP #### [facility] ([id number]) [address], [address] [place] [address] AST [Catalytic activity/Vol] 30 U/L Normal 0-41 [facility] Comment on above: Performed By: #### C YOEL, 02209-0, THYR, AHP #### [facility] ([id number]) [address], [address] [place] [address] Bilirubin [Mass/Vol] 0.7 mg/dL Normal 0.3-1.2 [facility] Comment on above: Performed By: #### C Bisi DIALLO31-1, THYR, AHP #### [facility] ([id number]) [address], [address] [place] [address] Bilirubin.direct [Mass/Vol] 0.2 mg/dL Normal 0.0-0.4 [facility] Comment on above: Performed By: #### C YOEL, 46666-5, THYR, AHP #### [facility] ([id number]) [address], [address] [place] [address] Protein [Mass/Vol] 6.7 g/dL Normal 6.0-8.0 [facility] Comment on above: Performed By: #### C YOEL, 76195-1, THYR, AHP #### [facility] ([id number]) [address], [address] [place] [address] MAGNESIUMon 01-18-2024 Magnesium [Mass/Vol] 1.7 mg/dL Low 1.8-2.6 [facility] Comment on above: Performed By: #### C YOEL, 40163-5, THYR, AHP #### [facility] ([id number]) [address], [address] [place] [address] TSH Qnon 01-18-2024 TSH 1.07 uIU/mL Normal 0.49-4.67 [facility] Comment on above: Performed By: #### C YOEL, 91751-5, THYR, P #### [facility] ([id number]) [address], [address] [place] [address] Vitamin D+Metabolites [Mass/ Vol]on 01-18-2024 VITAMIN D 25 HYD TOT 86.7 ng/mL Normal 30-100 [facility] Comment on above: Result Comment: Vitamin D status 25 [place] Vitamin D Deficiency <20 ng/mL Insufficiency 20-29 ng/mL Sufficiency 30-100 ng/mL Toxicity >100 ng/mL NOTE: A pediatric reference range has not been established by the manager recruiting of this kit. The [employer] recommends a Vitamin D level of = or >20ng/mL in infants and children. Performed By: #### Miladys DIALLO, [id number], THYR, [facility] #### [facility] ([id number]) [address], [address] [place] [address] US THYROIDon 01-06-2024 US THYROID US THYROID CLINICAL INFORMATION: T3 thyrotoxicosis. TECHNIQUE: Real time sonography of the thyroid gland performed. COMPARISON: No relevant prior studies available. FINDINGS: Thyroid size: Normal Right thyroid lobe measures: 3.8 x 1.3 x 1.7 cm Left thyroid lobe measures: 3.9 x 1.7 x 1.4 cm Overall thyroid texture: Heterogeneous with some mild increased blood flow throughout the gland. IMPRESSION: No discrete nodule or mass with mild diffuse hyperemia which can be seen with Graves' disease and/or thyroiditis. ACR TI-RADS recommendations: TR5 (greater than or equal to 7 points) - FNA if greater than or equal to 1cm, follow-up ultrasound if nodule is 0.5 - 0.9 cm every year for 5 years. TR4 (4 - 6 points) - FNA if greater than or equal to 1.5 cm, follow-up ultrasound if nodule is 1 -1.4 cm at 1, 2, 3 and 5 years. TR3 (3 points) - FNA if greater than or equal to 2.5 cm, follow-up ultrasound if nodule is 1.5 -2.4 cm at 1, 3 and 5 years. TR2 (2 points) & TR1 (0 points) - No FNA or follow-up. Finalized by Nikos Friend MD on 01/06/2024 6:53 AM Normal [facility] FREE T3on 01-03-2024 Free T3 [Mass/Vol] 3.48 pg/mL Normal 2.50-3.90 [facility] Comment on above: Performed By: #### [place], [address]-1, THYR, AHP #### [facility] ([id number]) [address] [place] [address], [address] [place] [address] Reference Lab Test IDon 03-0 CELIAC COMP CASCADE SEE COMMENTS 01/10/2024 10:26 PM Normal [facility] Comment on above: Result Comment: NOTE Test Result Flag Unit RefValue -- Celiac Disease Comprehensive Casc Immunoglobulin A (IgA) 261 mg/dL 61 - 356 , S DQ alpha 1 02:01, 03 Not Applicable DQ beta 1 02:02, 03:02 Not Applicable DQ Serologic Equivalent: 2, 8 Celiac gene pairs Yes present? Method: Molecular typing of HLA antigens performed using reverse SSOP and/or sequencing methods, reported as serological equivalents and low to intermediate resolution molecular values. For convenience, when not defined in the WHO Nomenclature a laboratory defined serologic equivalent has been provided. Based on the catalog of common, intermediate, and well-documented alleles in the world population(CIWD 3.0 Cecile RICE et.al, HLA. 2020:516-531), certain intermediate or common alleles in some ethnicities may not be resolved. Kindly contact laboratory if ethnic specific resolution is required. This test has been modified from the manufacturers instructions. Its performance characteristics were determined by [facility] in a manner consistent with CLIA requirements. This test has not been cleared or approved by the U.S. Food and Drug Administration. CLIA: [id number] CLIA Professor Of Social Work: ALAN LOUIS MD,PhD Celiac Disease See Note Interpretation See Comment: Celiac disease probable. Consider biopsy. Test Performed by: [facility] [address] [id number] Professor Of Social Work: Alan Louis M.D. Ph.D.; CLIA# [id number] Test Performed by: [facility] [address] [place] [address] Professor Of Social Work: Alan Louis M.D. Ph.D.; CLIA# [id number] Performed By: #### C YOEL, 23495-2, THYR, AHP #### [facility] ([id number]) [address] [facility], [address] [place] [address] THYROID PROFILEon 01-03-2024 Free T4 [Mass/Vol] 0.82 ng/dL Normal 0.61-1.60 [facility] Comment on above: Performed By: #### C YOEL, 32216-8, THYR, AHP #### [facility] ([id number]) [address] [facility], [address] [place] [address] TSH 0.41 uIU/mL Low 0.49-4.67 [facility] Comment on above: Performed By: #### Miladys DIALLO, 70312-1, THYR, AHP #### [facility] ([id number]) [address] [facility], [address] [place] [address] tTG IgA IA Qn (S)on 01-03-20 24 ENDOMYSIAL ABS IGA Negative Normal Negative [facility] Comment on above: Result Comment: NOTE A negative serum IgA endomysial antibody is usually seen in normal individuals, however a diagnosis of celiac disease, dermatitis herpetiformis and other gluten sensitive disorders cannot be completely excluded, as this test may be negative in a subset of individuals with these disorders. If the clinical suspicion for one of these disorders is high, recommend further testing for gluten sensitivity as indicated by the Celiac Disease Comprehensive [place] ([place] Test Unit Code CDCOM). In addition serum IgA endomysial antibody may also be negative in gluten-sensitive patients (with celiac disease, dermatitis herpetiformis or other gluten-sensitive disorders), who adhere to a strict gluten-free diet. ADDITIONAL INFORMATION This test has been modified from the manager recruiting's instructions. Its performance characteristics were determined by [facility] in a manner consistent with CLIA requirements. This test has not been cleared or approved by the U.S. Food and Drug Administration. Test Performed by: [place] [address] Professor Of Social Work: Alan Louis M.D. Ph.D.; CLIA# [id number] Performed By: #### Miladys DIALLO, 80934-1, PEARL SHEEHAN #### [facility] ([id number]) [address] [facility], [address] [place] [address] FREE T3on 12-21-2023 Free T3 [Mass/Vol] 3.75 pg/mL Normal 2.50-3.90 [facility] Comment on above: Performed By: #### Miladys DIALLO, 66424-8, PEARL SHEEHAN #### [facility] ([id number]) [address], [address] [place] [address] Mullerian inhibiting substan ce [Mass/Vol]on 12-21-2023 ANTI MULLERIAN HORM See Below Normal [facility] Comment on above: Result Comment: NOTE TEST RESULT FLAG UNIT REF.RANGE ------ Anti Mclean Hormone 0.37 L ng/mL 0.58-8.13 Test Performed By: [facility] [employer] [address] [place] [address] Shafting Cleaner: Eloy Dangelo III, M.D. CLIA #[id number] Performed By: #### C YOEL, 31201-6, THYR, AHP #### [facility] ([id number]) [address] [address] [place] [address] THYROID PROFILEon 12-21-2023 Free T4 [Mass/Vol] 0.94 ng/dL Normal 0.61-1.60 [facility] Comment on above: Performed By: #### Miladys DIALLO, 43931-0, THYR, AHP #### [facility] ([id number]) [address] [facility] [address] [place] [address] TSH 0.19 uIU/mL Low 0.49-4.67 [facility] Comment on above: Performed By: #### Miladys DIALLO, 47000-7, THYR, AHP #### [facility] ([id number]) [address], [address] [place] [address] THYROPEROXIDASE ABon 024 TPO Ab Qn 415 [IU]/mL High <10 [facility] Comment on above: Performed By: #### Miladys DIALLO, 71587-5, THYR, AHP #### [facility] ([id number]) [address] [facility] [address] [place] [address] Thyroid stimulating immunogl obulins Qn (S)on 12-21-2023 TSI See Below Normal [facility] Comment on above: Result Comment: NOTE TEST RESULT FLAG UNIT REF.RANGE ------ TSI Qualitative Positive A Negative TSI 1.84 H IU/L <0.55 Thyroid Stimulating Immunoglobulin test is used as an aid in diagnosis of autoimmune hyperthyroidism especially in patients with Grave's orbitopathy and dermopathy. Low positive TSH receptor stimulating antibody levels may occasionally be found in patients with autoimmune hypothyroidism. Clinical correlation is required. Test Performed By: [facility] [employer] [address] [place] [address] Shafting Cleaner: Eloy Dangelo III, M.D. CLIA #[id number] Performed By: ###[place] [address]-3, PEARL SHEEHAN #### [facility] ([id number]) [address] [facility], [address] [place] [address] Mullerian inhibiting substan ce [Mass/Vol]on 12-13-2023 ANTI MULLERIAN HORM See Below Normal [facility] Comment on above: Result Comment: NOTE TEST RESULT FLAG UNIT REF.RANGE ------ Anti Mclean Hormone 0.31 L ng/mL 0.58-8.13 Test Performed By: [facility] [employer] [address] [place] [address] Shafting Cleaner: Eloy Dangelo III, M.D. CLIA #[id number] Performed By: ###[place] [address]-1, PEARL SHEEHAN #### [facility] ([id number]) [address] [facility], [address] [place] [address] Progesterone [Mass/Vol]on PROGESTERONE 3.5 ng/mL [facility] Comment on above: Result Comment: FEMALES: 1st Tri: 4.7-50.7 ng/ml 2nd Tri: 19.4-45.3 ng/ml MENSTRUATING FEMALES: Follicular: 0.3-1.5 ng/ml Mid Luteal: 5.2-18.6 ng/ml [place]: <0.1-0.8 ng/ml Performed By: #### Miladys DIALLO, 51280-2, AGUILA P #### [facility] ([id number]) [address], [address] [place] [address] US PELVIC WITH TRANSVAGINALo n 12-13-2023 US PELVIC WITH TRANSVAGINAL US PELVIC WITH TRANSVAGINAL Clinical history: Pelvic pain Findings:Transabdomin al ultrasound was performed of the pelvis.. Endovaginal sonography was also performed to better evaluate the pelvic and adnexal structures.. Uterus measures 8.7 cm in length and 4.3 cm AP diameter. Myometrium unremarkable. Endometrium measures 5.5 mm. Right ovary 5.8 x 3.6 x 4.8 cm. Left ovary 3.1 x 2.8 x 3.6 cm. Bilateral cystic masses. Cyst within the right ovary measures 4.9 x 3.9 x 3.5 cm. Partially calcified. Other surrounding follicles present. Largest cyst left ovary measures 1.8 x 1.3 x 1.7 cm. This is probably undergoing involution. Small amount of free fluid in the cul-de-sac.. Impression: Complex right ovarian cyst probably unchanged given differences in technique when compared with the prior exam of 01/02/2023. This warrants continued imaging surveillance given the sonographic appearance. Specifically follow-up ultrasound in 3-4 months is advised. Finalized by Nikos Friend MD on 12/13/2023 6:28 PM [facility] Surgical Pathology Reporton 11-27-2023 Surgical Pathology Report (NOTE) Path Number: [id number] -- Diagnosis -- GALLBLADDER, CHOLECYSTECTOMY: -CHRONIC CHOLECYSTITIS -CHOLESTEROLOSIS -CHOLELITHIASIS Carlos A Olson D.O. Electronically Signed [facility]/11/28/2023 Clinical Information Pre-Op Diagnosis: CHOLECYSTITIS Operative Findings: GALLBLADDER AND CONTENTS Operation Performed: XI ROBOTIC LAPAROSCOPIC CHOLECYSTECTOMY, LIVER BIOPSY, POSSIBLE OPEN kb Source of Specimen A: GALLBLADDER AND CONTENTS Gross Description PHILLIP AVALOS GALLBLADDER AND CONTENTS Received in formalin is an 8.0 x 2.6 x 2.5 cm intact and distended gallbladder. The serosa is lawler-pink, finely vascularized and smooth, while the adventitia is finely roughened. There is a brown, finely trabeculated flat mucosa with an average wall thickness of 0.2 cm. Within the lumen is green bile admixed with orange-brown choleliths (ranging from 0.1 to 0.7 cm). No lesions or periductal lymph nodes are identified. Branch Office Administrator sections 1c. bladimir Peggy Naylor/kb2:11/27/2023 Microscopic Description Microscopic examination performed. Processing Lab: [address] [address] Interpretation Performed at [address] [address] SURGICAL PATHOLOGY CONSULTATION Patient Name: PHILLIP AVALOS [facility] Rec: [id number] [facility] ANATOMIC PATHOLOGY [address] [facility] [place], [place] [address] Normal [facility] COMPREHENSIVE METABOLIC PANE Augustin 11-16-2023 Albumin [Mass/Vol] 3.7 g/dL Normal 3.2-5.3 [facility] Comment on above: Performed By: #### C YOEL, 19014-3, THYR, AHP #### [facility] ([id number]) [address], [address] [place] [address] ALP [Catalytic activity/Vol] 45 U/L Normal 39-130 [facility] Comment on above: Performed By: #### C YOEL, 35520-2, THYR, AHP #### [facility] ([id number]) [address], [address] [place] [address] ALT [Catalytic activity/Vol] 51 U/L High 0-31 [facility] Comment on above: Performed By: #### C YOEL, 32121-0, THYR, AHP #### [facility] ([id number]) [address], [address] [place] [address] Anion gap [Moles/Vol] 8 mmol/L Normal 5-15 [facility] Comment on above: Performed By: #### C YOEL, 33953-8, THYR, AHP #### [facility] ([id number]) [address], [address] [place] [address] AST [Catalytic activity/Vol] 40 U/L Normal 0-41 [facility] Comment on above: Performed By: #### C YOEL, 12145-5, THYR, AHP #### [facility] ([id number]) [address], [address] [place] [address] Bilirubin [Mass/Vol] 0.7 mg/dL Normal 0.3-1.2 [facility] Comment on above: Performed By: #### C YOEL, 49190-4, THYR, AHP #### [facility] ([id number]) [address], [address] [place] [address] Calcium [Mass/Vol] 8.8 mg/dL Normal 8.5-10.5 [facility] Comment on above: Performed By: #### C YOEL, 77181-9, THYR, AHP #### [facility] ([id number]) [address], [address] [place] [address] Chloride [Moles/Vol] 106 mmol/L Normal 98-109 [facility] Comment on above: Performed By: #### C YOEL, 90982-4, THYR, AHP #### [facility] ([id number]) [address], [address] [place] [address] CO2 [Moles/Vol] 27 mmol/L Normal 22-32 [facility] Comment on above: Performed By: #### C YOEL, 32397-7, THYR, AHP #### [facility] ([id number]) [address] [address] [place] [address] Creatinine [Mass/Vol] 0.60 mg/dL Normal 0.40-1.00 [facility] Comment on above: Result Comment: METH OD TRACEABLE TO IDMS STANDARD Performed By: #### C YOEL, 34920-3, THYR, AHP #### [facility] ([id number]) [address], [address] [place] [address] eGFR (CKD-EPI) NON-RACE DEPENDENT >90 Normal >59 [facility] Comment on above: Result Comment: Reported eGFR is based on the CKD-EPI 1 equation that does not use a race coefficient. Performed By: #### C YOEL 70625-4, THYR, AHP #### [facility] ([id number]) [address], [address] [place] [address] Glucose [Mass/Vol] 79 mg/dL Normal 65-99 [facility] Comment on above: Performed By: #### C Bisi DIALLO31-1, THYR, AHP #### [facility] ([id number]) [address] [address] [place] [address] Potassium [Moles/Vol] 3.8 mmol/L Normal 3.5-5.0 [facility] Comment on above: Performed By: #### Miladys DIALLO 54579-5, THYR, AHP #### [facility] ([id number]) [address] [address] [place] [address] Protein [Mass/Vol] 6.4 g/dL Normal 6.0-8.0 [facility] Comment on above: Performed By: #### Miladys DIALLO 35529-7, THYR, AHP #### [facility] ([id number]) [address] [address] [place] [address] Sodium [Moles/Vol] 141 mmol/L Normal 134-146 [facility] Comment on above: Performed By: #### Miladys DIALLO 23322-3, THYR, AHP #### [facility] ([id number]) [address] [address] [place] [address] Urea nitrogen [Mass/Vol] 11 mg/dL Normal 5-23 [facility] Comment on above: Performed By: #### Bisi Hook MP31-1, AGUILA, PEARL #### [facility] ([id number]) [address], [address] [place] [address] MAGNESIUMon 11-16-2023 Magnesium [Mass/Vol] 1.8 mg/dL Normal 1.8-2.6 [facility] Comment on above: Performed By: #### C YOEL, 35375-2, AGUILA, PEARL #### [facility] ([id number]) [address] [facility] [place] [address] TSH Qnon 11-16-2023 TSH 0.19 uIU/mL Low 0.49-4.67 [facility] Comment on above: Performed By: #### C YOEL, 41225-5, AGUILA, PEARL #### [facility] ([id number]) [address] [facility] [address] [place] [address] Vitamin D+Metabolites [Mass/ Vol]on 11-16-2023 VITAMIN D 25 HYD TOT 65.7 ng/mL Normal 30-100 [facility] Comment on above: Result Comment: Vitamin D status 25 [place] Vitamin D Deficiency <20 ng/mL Insufficiency 20-29 ng/mL Sufficiency 30-100 ng/mL Toxicity >100 ng/mL NOTE: A pediatric reference range has not been established by the manager recruiting of this kit. The [employer] recommends a Vitamin D level of = or >20ng/mL in infants and children. Performed By: #### C YOEL, 56903-2, THYR, DEEPAP #### [facility] ([id number]) [address] [facility] [place] [address] BASIC METABOLIC PANLon 11-02 Anion gap [Moles/Vol] 7 mmol/L Normal 5-15 [facility] Comment on above: Performed By: #### C BCA, BMP, 75030-4, 93947-9, 3040-3 #### [facility] ([id number]) [address] [place] [address] Calcium [Mass/Vol] 8.7 mg/dL Normal 8.5-10.5 [facility] Comment on above: Performed By: #### C BCA, BMP, 56627-7, 57718-4, 3040-3 #### [facility] ([id number]) [address] [place] [address] Chloride [Moles/Vol] 104 mmol/L Normal 98-109 [facility] Comment on above: Performed By: #### C BCA, BMP, 79517-9, 25821-7, 3040-3 #### [facility] ([id number]) [address] [place] [address] CO2 [Moles/Vol] 27 mmol/L Normal 22-32 [facility] Comment on above: Performed By: #### C BCA, BMP, 52636-5, 61431-3, 3040-3 #### [facility] ([id number]) [address] [place] [address] Creatinine [Mass/Vol] 0.66 mg/dL Normal 0.40-1.00 [facility] Comment on above: Result Comment: METH OD TRACEABLE TO IDMS STANDARD Performed By: #### C BCA, BMP, 19007-9, 49977-4, 3040-3 #### [facility] ([id number]) [address] [place] [address] eGFR (CKD-EPI) NON-RACE DEPENDENT >90 Normal >59 [facility] Comment on above: Result Comment: Reported eGFR is based on the CKD-EPI 2020 equation that does not use a race coefficient. Performed By: #### C BCA, BMP, 33950-4, 75809-3, 3040-3 #### [facility] ([id number]) [address] [place] [address] Glucose [Mass/Vol] 89 mg/dL Normal 65-99 [facility] Comment on above: Performed By: #### C EMORY, BMP, 84297-7, 03972-1, 3040-3 #### [facility] ([id number]) [address] [place] [address] Potassium [Moles/Vol] 3.7 mmol/L Normal 3.5-5.0 [facility] Comment on above: Performed By: #### C EMORY, BMP, 03852-2, 09273-1, 3040-3 #### [facility] ([id number]) [address] [place] [address] Sodium [Moles/Vol] 138 mmol/L Normal 134-146 [facility] Comment on above: Performed By: #### C EMORY, BMP, 05979-7, 28862-0, 3040-3 #### [facility] ([id number]) [address] [place] [address] Urea nitrogen [Mass/Vol] 16 mg/dL Normal 5-23 [facility] Comment on above: Performed By: #### C EMORY, BMP, 74034-2, 82271-6, 3040-3 #### [facility] ([id number]) [address] [place] [address] CBC AND AUTO DIFFon 11-02-19 24 ABSOLUTE BASOPHIL 0.0 X10E9/L Normal 0.0-0.2 [facility] Comment on above: Performed By: #### C EMORY, BMP, 44766-4, 23391-9, 3040-3 #### [facility] ([id number]) [address] [place] [address] ABSOLUTE NEUTROPHIL 3.9 X10E9/L Normal 1.5-6.6 [facility] Comment on above: Performed By: #### C BCA, BMP, 62820-4, 57569-7, 3040-3 #### [facility] ([id number]) [address] [place] [address] Basophils/100 WBC (Bld) 0.6 % Normal [facility] Comment on above: Performed By: #### C BCA, BMP, 66987-3, 77892-9, 3040-3 #### [facility] ([id number]) [address] [place] [address]50 Eosinophils (Bld) [#/Vol] 0.3 10*3/uL Normal 0.0-0.4 [facility] Comment on above: Performed By: #### C BCA, BMP, 63047-0, 25538-1, 3040-3 #### [facility] ([id number]) [address] [place] [address] Eosinophils/100 WBC (Bld) 4.8 % Normal [facility] Comment on above: Performed By: #### C EMORY, BMP, 43453-3, 39300-9, 3040-3 #### [facility] ([id number]) [address] [place] [address]26[address] Erythrocyte distribution width (RBC) [Ratio] 12.6 % Normal 11.5-15.0 [facility] Comment on above: Performed By: #### Miladys BCA, BMP, 57936-4, 48067-8, 3040-3 #### [facility] ([id number]) [address] [place] [address] Hematocrit (Bld) [Volume fraction] 39.8 % Normal 35-47 [facility] Comment on above: Performed By: #### C BCA, BMP, 58311-7, 80672-4, 3040-3 #### [facility] ([id number]) [address] [place] [address]75 Hemoglobin (Bld) [Mass/Vol] 13.5 g/dL Normal 11.7-15.5 [facility] Comment on above: Performed By: #### C BCA, BMP, 37283-2, 66365-4, 3040-3 #### [facility] ([id number]) [address] [place] [address]186 Lymphocytes (Bld) [#/Vol] 2.0 10*3/uL Normal 1.0-3.5 [facility] Comment on above: Performed By: #### C BCA, BMP, 96530-2, 39707-8, 3040-3 #### [facility] ([id number]) [address] [place] [address]753 Lymphocytes/100 WBC (Bld) 29.0 % Normal [facility] Comment on above: Performed By: #### Miladys BCA, BMP, 40402-0, 54604-8, 3040-3 #### [facility] ([id number]) [address] [place] [address] 64175 MCH (RBC) [Entitic mass] 31.0 pg Normal 27-34 [facility] Comment on above: Performed By: #### C BCA, BMP, 71195-6, 88091-0, 3040-3 #### [facility] ([id number]) [address] [place] [address] 48043 MCHC (RBC) [Mass/Vol] 33.9 g/dL Normal 32-36 [facility] Comment on above: Performed By: #### C BCA, BMP, 69250-8, 00827-7, 3040-3 #### [facility] ([id number]) [address] [place] [address] 87127 MCV (RBC) [Entitic vol] 91 fL Normal 80-100 [facility] Comment on above: Performed By: #### Miladys BCA, BMP, 07622-3, 13432-5, 3040-3 #### [facility] ([id number]) [address] [place] [address] 88579 Monocytes (Bld) [#/Vol] 0.6 10*3/uL Normal 0-0.9 [facility] Comment on above: Performed By: #### C BCA, BMP, 99292-6, 63946-2, 3040-3 #### [facility] ([id number]) [address] [place] [address]2316 Monocytes/100 WBC (Bld) 8.2 % Normal [facility] Comment on above: Performed By: #### Miladys BCA, BMP, 12994-7, 28966-5, 3040-3 #### [facility] ([id number]) [address] [place] [address]34[address] Neutrophils/100 WBC (Bld) 57.4 % Normal [facility] Comment on above: Performed By: #### Miladys BCA, BMP, 77774-8, 70061-3, 3040-3 #### [facility] ([id number]) [address] [place] [address] 95795 Platelet mean volume (Bld) [Entitic vol] 7.5 fL Normal 7-12 [facility] Comment on above: Performed By: #### Miladys BCA, BMP, 64400-5, 31922-7, 3040-3 #### [facility] ([id number]) [address] [place] [address] 87842 Platelets (Bld) [#/Vol] 222 10*3/uL Normal 150-450 [facility] Comment on above: Performed By: #### Miladys BCA, BMP, 26243-2, 57099-7, 3040-3 #### [facility] ([id number]) [address] [place] [address] 01186 RBC COUNT 4.36 X10E12/L Normal 3.80-5.20 [facility] Comment on above: Performed By: #### Miladys BCA, BMP, 60310-9, 27231-4, 3040-3 #### [facility] ([id number]) [address] [place] [address] 72320 WBC (Bld) [#/Vol] 6.9 10*3/uL Normal 4.0-11.0 [facility] Comment on above: Performed By: #### C EMORY, BMP, 09286-7, 16264-8, 3040-3 #### [facility] ([id number]) [address] [place] [address] Fibrin D-dimer DDU (PPP) [Ma ss/Vol]on 11-02-2023 D DIMER <150 Normal <255 [facility] Comment on above: Result Comment: Results <255 ng/mL DDU: The presence of a VTE can safely be excluded with a negative D-Dimer result and Wells score. A negative result doesn't exclude the possibility of DIC. The test be repeated along with other diagnostic tests if the patient's symptoms persist or worsen. [email or web address] h=acaea Performed By: #### C EMORY SOHA, 89755-4, 17566-5, 3040-3 #### [facility] ([id number]) [address] [place] [address] LIPASEon 11-02-2023 Lipase [Catalytic activity/Vol] 64 U/L High 17-40 [facility] Comment on above: Performed By: #### [place], [address]-6, THYR, AHP #### [facility] ([id number]) [address] [place] [address] TROPONIN Ion 11-02-2023 Troponin I.cardiac [Mass/Vol] 0.03 ng/mL Normal 0.00-0.04 [facility] Comment on above: Performed By: #### C EMORY, BMP, 68642-6, 60400-8, 3040-3 #### [facility] ([id number]) [address] [place] [address] XR CHEST 1 VWon 11-02-2023 XR CHEST 1 VW XR CHEST 1 VW Single view chest History: Difficulty breathing, shortness of breath Comparison: 05/25/2021 Impression: 1. No acute cardiopulmonary process. No pneumothorax or pleural effusion. 2. Nonenlarged heart. Finalized by Artem Dunbar MD on 11/02/2023 12:38 AM Normal [facility] ACUTE HEPATITIS PANELon ANTI HCV W/PCR REFLX Non-Reactive Normal NRCT [facility] Comment on above: Result Comment: If recent infection suspected, recommend repeat testing (>2 months). Mcdang-ve-ujkybm ratio is <0.80. Performed By: #### C YOEL 36102-6, THYR, AHP #### [facility] ([id number]) [address], [address] [place] [address] HEPATITIS A IGM Non-Reactive Normal NRCT [facility] Comment on above: Performed By: #### Miladys DIALLO 22271-3, THYR, AHP #### [facility] ([id number]) [address], [address] [place] [address] HEPATITIS B CORE IGM Negative Normal NEG [facility] Comment on above: Performed By: #### Miladys DIALLO 84006-0, THYR, AHP #### [facility] ([id number]) [address], [address] [place] [address] HEPATITIS B SURF AG Negative Normal NEG [facility] Comment on above: Performed By: #### Miladys DIALLO, 06589-3, THYR, AHP #### [facility] ([id number]) [address], [address] [place] [address] COMPREHENSIVE METABOLIC PANE Augustin 11-01-2023 Albumin [Mass/Vol] 3.8 g/dL Normal 3.2-5.3 [facility] Comment on above: Performed By: #### C YOEL 98983-3, THYR, AHP #### [facility] ([id number]) [address], [address] [place] [address] ALP [Catalytic activity/Vol] 43 U/L Normal 39-130 [facility] Comment on above: Performed By: #### C YOEL 93704-4, THYR, AHP #### [facility] ([id number]) [address], [address] [place] [address] ALT [Catalytic activity/Vol] 46 U/L High 0-31 [facility] Comment on above: Performed By: #### C YOEL, 19622-5, THYR, AHP #### [facility] ([id number]) [address], [address] [place] [address] Anion gap [Moles/Vol] 4 mmol/L Low 5-15 [facility] Comment on above: Performed By: #### Miladys DIALLO, 67513-4, THYR, AHP #### [facility] ([id number]) [address], [address] [place] [address] AST [Catalytic activity/Vol] 34 U/L Normal 0-41 [facility] Comment on above: Performed By: #### C YOEL, 77761-3, THYR, AHP #### [facility] ([id number]) [address], [address] [place] [address] Bilirubin [Mass/Vol] 0.7 mg/dL Normal 0.3-1.2 [facility] Comment on above: Performed By: #### C YOEL, 48880-5, THYR, AHP #### [facility] ([id number]) [address], [address] [place] [address] Calcium [Mass/Vol] 8.7 mg/dL Normal 8.5-10.5 [facility] Comment on above: Performed By: #### C YOEL, 50692-9, THYR, AHP #### [facility] ([id number]) [address], [address] [place] [address] Chloride [Moles/Vol] 106 mmol/L Normal 98-109 [facility] Comment on above: Performed By: #### Miladys DIALLO, 47221-5, THYR, AHP #### [facility] ([id number]) [address], [facility] [address] [place] [address] CO2 [Moles/Vol] 29 mmol/L Normal 22-32 [facility] Comment on above: Performed By: #### Miladys DIALLO, 07190-5, THYR, AHP #### [facility] ([id number]) [address], [address] [place] [address] Creatinine [Mass/Vol] 0.62 mg/dL Normal 0.40-1.00 [facility] Comment on above: Result Comment: METH OD TRACEABLE TO IDMS STANDARD Performed By: #### Miladys DIALLO, 37124-9, THYR, AHP #### [facility] ([id number]) [address] [address] [address] [place] [address] eGFR (CKD-EPI) NON-RACE DEPENDENT >90 Normal >59 [facility] Comment on above: Result Comment: Reported eGFR is based on the CKD-EPI 2020 equation that does not use a race coefficient. Performed By: #### Miladys DIALLO, 71963-7, THYR, AHP #### [facility] ([id number]) [address], [address] [place] [address] Glucose [Mass/Vol] 69 mg/dL Normal 65-99 [facility] Comment on above: Performed By: #### Miladys DIALLO, 24202-1, THYR, AHP #### [facility] ([id number]) [address] [address] [place] [address] Potassium [Moles/Vol] 3.5 mmol/L Normal 3.5-5.0 [facility] Comment on above: Performed By: #### C YOEL, 37397-4, THYR, AHP #### [facility] ([id number]) [address], [address] [place] [address] Protein [Mass/Vol] 6.5 g/dL Normal 6.0-8.0 [facility] Comment on above: Performed By: #### C YOEL, 85657-7, THYR, AHP #### [facility] ([id number]) [address], [facility] [address] [place] [address] Sodium [Moles/Vol] 139 mmol/L Normal 134-146 [facility] Comment on above: Performed By: #### Miladys DIALLO, 08215-2, THYR, AHP #### [facility] ([id number]) [address], [address] [place] [address] Urea nitrogen [Mass/Vol] 12 mg/dL Normal 5-23 [facility] Comment on above: Performed By: #### Miladys DIALLO, 86629-8, THYR, AHP #### [facility] ([id number]) [address], [address] [place] [address] Lipid 1996 panelon 4 Cholesterol [Mass/Vol] 93 mg/dL Low 150-200 [facility] Comment on above: Performed By: #### Miladys DIALLO, 42643-4, THYR, AHP #### [facility] ([id number]) [address], [facility] [address] [place] [address] Cholesterol in HDL [Mass/Vol] 37 mg/dL Low >39 [facility] Comment on above: Result Comment: HDL <40 mg/dL - High Risk HDL > or = 40mg/dL- Desirable HDL >60 mg/dL - Negative Risk Performed By: #### Miladys DIALLO, 89277-2, THYR, AHP #### [facility] ([id number]) [address], [address] [place] [address] Cholesterol in LDL [Mass/Vol] 44 mg/dL Normal <130 [facility] Comment on above: Result Comment: LDL <100 mg/dL - Desirable LDL >160 mg/dL - High Risk Performed By: #### Miladys DIALLO, 79551-9, THYR, AHP #### [facility] ([id number]) [address], [address] [place] [address] Cholesterol in VLDL [Mass/Vol] 12 mg/dL Normal 0-30 [facility] Comment on above: Performed By: #### Miladys DIALLO 13772-5, THYR, AHP #### [facility] ([id number]) [address], [facility] [address] [place] [address] CHOLESTEROL:HDL 2.5 Normal 1.0-5.0 [facility] Comment on above: Performed By: #### Miladys DIALLO 56761-4, THYR, AHP #### [facility] ([id number]) [address], [facility] [address] [place] [address] Triglyceride [Mass/Vol] 59 mg/dL Normal 27-150 [facility] Comment on above: Performed By: #### Miladys DIALLO 63411-3, THYR, AHP #### [facility] ([id number]) [address] [address] [address] [place] [address] THYROID PROFILEon 11-01-2023 Free T4 [Mass/Vol] 1.06 ng/dL Normal 0.61-1.60 [facility] Comment on above: Performed By: #### [place], [address]-0, THYR, AHP #### [facility] ([id number]) [address], [address] [place] [address] TSH 0.39 uIU/mL Low 0.49-4.67 [facility] Comment on above: Performed By: #### [place], 58292-0, THYR, AHP #### [facility] ([id number]) [address] [place] [address] US ABDOMEN LMTDon 11-01-2023 US ABDOMEN LMTD US ABDOMEN LMTD US ABDOMEN LMTD HISTORY: Hypothyroidism COMPARISON: CT 07/27/2021 TECHNIQUE: Multiple real-time grayscale images were obtained in transverse and sagittal projections. Color Doppler was used. FINDINGS: Diffusely increased hepatic echogenicity compatible with hepatocellular disease, likely secondary to steatosis. Within these limits, no focal hepatic lesion demonstrated. No intrahepatic biliary dilatation. The common duct is not dilated and measures 0.2 cm. Main portal vein is patent with appropriate direction of flow. Multiple, mobile echogenic foci with posterior acoustic shadowing within the gallbladder lumen consistent with gallstones. No gallbladder wall thickening or pericholecystic fluid demonstrated. Technologist reports negative sonographic Zamarripa's sign. The gallbladder wall measures 0.1 cm. Visualized portions of the pancreatic head and body are unremarkable. Provided images of the right kidney show no abnormalities. IMPRESSION: * Cholelithiasis without sonographic evidence of acute cholecystitis. * Diffusely increased hepatic echogenicity is most likely secondary to hepatic steatosis. Approved by Resident Mirna Reagan DO on 11/01/2023 9:27 AM I, Gustavo Butcher MD have personally reviewed the image(s) and agree with and/or edited the report Finalized by Gustavo Butcher MD on 11/01/2023 9:34 AM Normal [facility] CBC AUTO DIFFon 03-13-2023 BASO # 0.0 103/ul Normal 0.0-0.1 [facility] Comment on above: Performed By: #### C BC #### [facility] [address] [place] [address] Dr. Froy Calderón Basophils/100 WBC (Bld) 0.6 % Normal 0.2-2.0 [facility] Comment on above: Performed By: #### C BC #### [facility] [address] [place] [address] Dr. Froy Calderón EO # 0.3 103/ul Normal 0.0-0.7 [facility] Comment on above: Performed By: #### C BC #### [facility] [address] [place] [address] Dr. Froy Calderón Eosinophils/100 WBC (Bld) 3.9 % Normal 0.9-7.0 [facility] Comment on above: Performed By: #### C BC #### [facility] [address] [place] [address] Dr. Froy Calderón Erythrocyte distribution width (RBC) [Ratio] 12.0 % Normal 11.0-15.0 [facility] Comment on above: Performed By: #### C BC #### [facility] [address] [place] [address] Dr. Froy Calderón Hematocrit (Bld) [Volume fraction] 38.6 % Normal 36.0-48.0 [facility] Comment on above: Performed By: #### C BC #### [facility] [address] [place] [address] Dr. Froy Calderón Hemoglobin (Bld) [Mass/Vol] 12.9 g/dL Normal 12.0-16.0 [facility] Comment on above: Performed By: #### C BC #### [facility] [address] [place] [address] Dr. Froy Calderón IG # 0.02 10e3/ul Normal 0.00-0.03 [facility] Comment on above: Performed By: #### C BC #### [facility] [address] [place] [address] Dr. Froy Calderón IG % 0.3 % Normal 0.0-0.5 [facility] Comment on above: Performed By: #### C BC #### [facility] [address] [place] [address] Dr. Froy Calderón LYMPH # 1.8 103/ul Normal 1.2-3.8 [facility] Comment on above: Performed By: #### C BC #### [facility] [address] [place] [address] Dr. Froy Calderón Lymphocytes/100 WBC (Bld) 26.5 % Normal 20.5-60.0 [facility] Comment on above: Performed By: #### C BC #### [facility] [address] [place] [address] Dr. Froy Calderón MANUAL DIFF REQ NO Normal [facility] Comment on above: Performed By: #### C BC #### [facility] [address] [place] [address] Dr. Froy Calderón MCH (RBC) [Entitic mass] 31.3 pg Normal 26.7-34.0 [facility] Comment on above: Performed By: #### C BC #### [facility] [address] [place] [address] Dr. Froy Calderón MCHC (RBC) [Mass/Vol] 33.4 g/dL Normal 29.9-35.2 [facility] Comment on above: Performed By: #### C BC #### [facility] [address] [place] [address] Dr. Froy Calderón MCV (RBC) [Entitic vol] 93.7 fL Normal 81.0-99.0 [facility] Comment on above: Performed By: #### C BC #### [facility] [address] [place] [address] Dr. Froy Calderón MONO # 0.6 103/ul Normal 0.3-0.8 [facility] Comment on above: Performed By: #### C BC #### [facility] [address] [place] [address] Dr. Froy Calderón Monocytes/100 WBC (Bld) 8.1 % Normal 1.7-12.0 [facility] Comment on above: Performed By: #### C BC #### [facility] [address] [place] [address] Dr. Froy Calderón NEUT # 4.2 103/ul Normal 1.4-6.5 [facility] Comment on above: Performed By: #### C BC #### [facility] [address] [place] [address] Dr. Froy Calderón Neutrophils/100 WBC (Bld) 60.6 % Normal 43.0-75.0 [facility] Comment on above: Performed By: #### C BC #### [facility] [address] [place] [address] Dr. Froy Calderón Platelet mean volume (Bld) [Entitic vol] 9.2 fL Critically low 9.5-13.5 [facility] Comment on above: Performed By: #### C BC #### [facility] [address] [place] [address] Dr. Froy Calderón PLT 226 103/ul Normal 150-450 [facility] Comment on above: Performed By: #### C BC #### [facility] [address] [place] [address] Dr. Froy Calderón RBC 4.12 106/ul Critically low 4.20-5.40 [facility] Comment on above: Performed By: #### C BC #### [facility] [address] [place] [address] Dr. Froy Calderón WBC 7.0 103/ul Normal 4.0-11.0 [facility] Comment on above: Performed By: #### C BC #### [facility] [address] [place] [address] Dr. Froy Calderón FREE T4on 03-13-2023 Free T4 [Mass/Vol] 0.96 ng/dL Normal 0.76-1.46 [facility] Comment on above: Performed By: #### F T4 #### [facility] [address] [place] [address] Dr. Froy Calderón GLYCOHEMOGLOBIN A1Con 2022 ADA RECOMMENDATION SEE BELOW Normal [facility] Comment on above: Result Comment: ADA RECOMMENDED LIMIT 4.0 - 6.0 ADA THERAPEUTIC TARGET < 7.0 ACTION SUGGESTED > 7.0 Performed By: #### A 1C #### [facility] [address] [place], [place] [address] Dr. Froy Calderón Glucose [Mass/Vol] 91 mg/dL Normal [facility] Comment on above: Performed By: #### A 1C #### [facility] [address] [place], [place] [address] Dr. Froy Calderón HbA1c (Bld) [Mass fraction] 4.8 % Normal 4.5-6.2 [facility] Comment on above: Performed By: #### A 1C #### [facility] [address] [place] [address] [address] Froy Calderón TSHon 03-13-2023 TSH 5.367 uIU/mL Critically high 0.358-3.740 [facility] Comment on above: Performed By: #### T SH #### [facility] [address] [place] [address] Dr. Froy Calderón US PELVIS AND TRANSVAGon US PELVIS AND TRANSVAG EXAMINATION: US PELVIS AND TRANSVAG HISTORY: Cyst of right ovary COMPARISON: CT 01/11/2021 FINDINGS: Transabdominal and transvaginal images The uterus is normal in size, contour and echotexture measuring 9.3 x 3.4 x 5.5 cm, anteverted, anteflexed. No focal myometrial mass The endometrium measures 6 mm, normal. The right ovary is asymmetrically enlarged measuring 6.7 x 4.2 x 5.8 cm. Identified within the ovary is an area of anechoic echogenicity measuring 4.3 x 3.8 x 3.2 cm, some scattered low-level echoes and areas of wall thickening, a complex cyst is favored. A second heterogeneous hyperechogenic lesion with peripheral vascularity identified measuring 3.3 x 2.7 x 2.1 cm. The left ovary is normal in appearance measuring 3.6 x 2.0 x 3.2 cm Moderate amount of free pelvic fluid IMPRESSION: 1.3 cm complex right ovarian cyst 3.3 cm indeterminate cystic mass with peripheral vascularity. Possibly a collapsing functional cyst. Consider follow-up in 2 menstrual cycles to evaluate stability/resolution Electronically authenticated by: NATALIE KHAN Date: 2023-02-19 09:20 Normal [facility] PAP ACOG PANEL 2: 30 to 65on 01-31-2023 . . Normal [facility] Comment on above: Result Comment: Perf ormed at: WB Performed By: #### 4 [id number] #### [facility] [address] [address] [address] Froy Calderón Age Gdln ACOG Testing 30-65 Normal [facility] Comment on above: Performed By: #### 4 [id number] #### [facility] [address] [address] [address] Froy Calderón DIAGNOSIS: Comment Normal [facility] Comment on above: Result Comment: NEGA TIVE FOR INTRAEPITHELIAL LESION OR MALIGNANCY. Performed at: WB Performed By: #### 4 [id number] #### [facility] [address] [address] [address] Froy Calderón HPV Aptima Negative Normal Negative [facility] Comment on above: Result Comment: This nucleic acid amplification test detects fourteen high-risk HPV types (16,18,31,33,35,39,45,51,52,56,58,59,66,68) without differentiation. Performed at: =G Performed By: #### 4 [id number] #### [facility] [address] [address] [address] Froy Calderón HPV Genotype Reflex Comment Normal [facility] Comment on above: Result Comment: Crit eria not met, HPV Genotype not performed. Performed at: WB Performed By: #### 4 [id number] #### [facility] [address] [place] [address] Dr. Froy Calderón Methodology: Comment Normal [facility] Comment on above: Result Comment: This liquid based ThinPrep(R) pap test was screened with the use of an image guided system. Performed at: WB Performed By: #### 4 [id number] #### [facility] [address] [place] [address] Dr. Froy Calderón Note: Comment Normal [facility] Comment on above: Result Comment: The Pap smear is a screening test designed to aid in the detection of premalignant and malignant conditions of the uterine cervix. It is not a diagnostic procedure and should not be used as the sole means of detecting cervical cancer. Both false-positive and false-negative reports do occur. . Performed at: WB Performed By: #### 4 [id number] #### [facility] [address] [address] [address] Froy Calderón Performed by: Comment Normal [facility] Comment on above: Result Comment: Racheal Villatoro, Gravity Meter Observer Performed at: WB Performed By: #### [id number] #### [facility] [address] [address] [address] Froy Calderón Specimen adequacy: Comment Normal [facility] Comment on above: Result Comment: Sati sfactory for evaluation. Endocervical and/or squamous metaplastic cells (endocervical component) are present. Performed at: WB Performed By: #### 4 [id number] #### [facility] [address] [place] [address] Dr. Froy Calderón PREG QUANT HCGon 12-03-2022 HCG QUANT <1 Normal [facility] Comment on above: Performed By: #### P REGQNT #### [facility] [address] [place] [address] Dr. Froy Calderón HCG RANGE SEE BELOW [facility] Comment on above: Result Comment: 5-50 0.2-1 WEEK 50-500 1-2 WEEKS 100-5,000 2-3 WEEKS 500-10,000 3-4 WEEKS 1,000-50,000 4-5 WEEKS 10,000-100,000 5-6 WEEKS 15,000-200,000 6-8 WEEKS 10,000-100,000 2-3 MONTHS Performed By: #### P REGQNT #### [facility] [address] [place] [address] Dr. Froy Calderón Basic Metabolic Panelon 09-0 Anion gap [Moles/Vol] 10 mmol/L 9 - 17 mmol/L [facility] Calcium [Mass/Vol] 8.4 mg/dL Low 8.6 - 10. 4 mg/dL [facility] Chloride [Moles/Vol] 107 mmol/L 98 - 10 7 mmol/L [facility] CO2 [Moles/Vol] 21 mmol/L 20 - 31 mmol/L [facility] Creatinine [Mass/Vol] 0.61 mg/dL 0.5 - 0.9 mg/dL [facility] GFR >60 60 - PI NF mL/min [facility] GFR Non- >60 60 - PINF mL/min [facility] GFR/1.73 sq M.predicted MDRD (S/P/Bld) [Vol rate/Area] [facility] Comment on above: Average GFR for 20-2 9 years old: 116 mL/min/1.73sq m Chronic Kidney Disease: <60 mL/min/1.73sq m Kidney failure: <15 mL/min/1.73sq m eGFR calculated using average adult body mass. Additional eGFR calculator available at: http://www.[employer]/multiple_crcl_2012.htm Glucose [Mass/Vol] 107 mg/dL High 70 - 99 mg/dL [facility] Interpretation and review of laboratory results Abnormal [facility] Potassium [Moles/Vol] 5.0 mmol/L 3.7 - 5.3 mmol/L [facility] Sodium [Moles/Vol] 138 mmol/L 135 - 144 mmol/L [facility] Urea nitrogen (BldV) [Mass/Vol] 7 mg/dL 6 - 20 mg/dL [facility] CBCon 07-04-2022 Hematocrit (Bld) [Volume fraction] 39.8 % 36.3 - 47.1 % [facility] Hemoglobin (Bld) [Mass/Vol] 13.4 g/dL 11.9 - 15.1 g/dL [facility] Interpretation and review of laboratory results Abnormal [facility] MCH (RBC) [Entitic mass] 30.1 pg 25.2 - 33.5 pg [facility] MCHC (RBC) [Mass/Vol] 33.7 g/dL 28.4 - 34.8 g/dL [facility] MCV (RBC) [Entitic vol] 89.4 fL 82.6 - 102.9 fL [facility] NRBC Automated 0.0 0.0 per 100 WBC [facility] Platelet distribution width (Bld) [Ratio] 11.6 % Low 11.8 - 14.4 % [facility] Platelet mean volume (Bld) [Entitic vol] 9.6 fL 8.1 - 13.5 fL [facility] Platelets (Bld) [#/Vol] 217 10*3/uL [facility] RBC (Bld) [#/Vol] 4.45 10*6/uL 3.95 - 5.1 1 m/uL [facility] WBC (Bld) [#/Vol] 13.6 10*3/uL High [facility] Basic Metabolic Panelon 09-0 Anion gap [Moles/Vol] 14 mmol/L 9 - 17 mmol/L [facility] Calcium [Mass/Vol] 8.8 mg/dL 8.6 - 10. 4 mg/dL [facility] Chloride [Moles/Vol] 103 mmol/L 98 - 10 7 mmol/L [facility] CO2 [Moles/Vol] 18 mmol/L Low 20 - 31 mmol/L [facility] Creatinine [Mass/Vol] 0.66 mg/dL 0.5 - 0.9 mg/dL [facility] GFR >60 60 - PI NF mL/min [facility] GFR Non- >60 60 - PINF mL/min [facility] GFR/1.73 sq M.predicted MDRD (S/P/Bld) [Vol rate/Area] [facility] Comment on above: Average GFR for 20-2 9 years old: 116 mL/min/1.73sq m Chronic Kidney Disease: <60 mL/min/1.73sq m Kidney failure: <15 mL/min/1.73sq m eGFR calculated using average adult body mass. Additional eGFR calculator available at: http://www.[employer]Plus/multiple_crcl_2012.htm Glucose [Mass/Vol] 126 mg/dL High 70 - 99 mg/dL [facility] Interpretation and review of laboratory results Abnormal [facility] Potassium [Moles/Vol] 4.3 mmol/L 3.7 - 5.3 mmol/L [facility] Sodium [Moles/Vol] 135 mmol/L 135 - 144 mmol/L [facility] Urea nitrogen (BldV) [Mass/Vol] 11 mg/dL 6 - 20 mg/dL [facility] CBC without Diffon Hematocrit (Bld) [Volume fraction] 46.4 % 36.3 - 47.1 % [facility] Hemoglobin (Bld) [Mass/Vol] 15.2 g/dL High 11.9 - 15.1 g/dL [facility] Interpretation and review of laboratory results Abnormal [facility] MCH (RBC) [Entitic mass] 29.9 pg 25.2 - 33.5 pg [facility] MCHC (RBC) [Mass/Vol] 32.8 g/dL 28.4 - 34.8 g/dL [facility] MCV (RBC) [Entitic vol] 91.2 fL 82.6 - 102.9 fL [facility] NRBC Automated 0.0 0.0 per 100 WBC [facility] Platelet distribution width (Bld) [Ratio] 11.9 % 11.8 - 14.4 % [facility] Platelet mean volume (Bld) [Entitic vol] 9.4 fL 8.1 - 13.5 fL [facility] Platelets (Bld) [#/Vol] 232 10*3/uL [facility] RBC (Bld) [#/Vol] 5.09 10*6/uL 3.95 - 5.1 1 m/uL [facility] WBC (Bld) [#/Vol] 9.0 10*3/uL [facility] POCT urine pregnancyon 07-03 Beta HCG ( test) Ql (U) Negative NEGATIVE [facility] Comment on above: Specimens with hCG l evels near the threshold of the test (25 mIU/mL) may give a negative or indeterminate result. In such cases, another test should be performed with a new specimen in 48-72 hours. If early is suspected clinically in this setting, correlation with quantitative serum b-hCG level is suggested. [facility] Gastroenterology Office/Clin ic Noteon 03-29-2021 Gastroenterology Office/Clinic Note Patient with constipation, prescribed lactulose may use until bowel movement then daily. Continued problems follow-up with a clinic appointment Electronically signed by Magdalene Banerjee 03/29/21 14:24 EDT Per Faith River MA, the patient is requesting colonoscopy. I reviewed her results from EGD and colonoscopy from [address] Hamilton's, she had a sessile polyp and indication of celiac disease in the EGD with mild gastritis, the colonoscopy report appeared to be normal. Would suggest repeat EGD however the patient is requesting colonoscopy with her constipation we will go ahead and order. Electronically signed by Magdalene Banerjee 03/31/21 10:21 EDT Patient has been taking lactulose as prescribed every 4 hours for 2 days now, no bowel movements as of yet. Was instructed to continue taking until BM, then daily after. Knows to report to ED if she experiences severe abdominal pain or increase in rectal bleeding. Aware that we will proceed with EGD/Colonoscopy, waiting to schedule, agreeable to plan, no additional questions at this time. Electronically signed by Faith River 03/31/21 14:40 EDT Electronically signed by Geckle [facility] REPLACERMagdalene 04/03/2021 09:24 EDT Normal [facility] [place] 02-27-2021 Consent [id number]# 1.00CD:127 Normal [facility] Registrationon 02-27-2021 Registration [id number]# 1.00CD:127 [facility] Vital Signs Date Time Vital Sign Value Performing Clinician Chelseai lity 07-04-2022 11:11-0400 Body temperature 99.3 [degF] Bret Manuel DO Work Phone: [employer] 07-04-2022 11:11-0400 Diastolic blood pressure 75 mm[Hg] Bret Manuel [facility] Work Phone: [employer] 07-04-2022 11:11-0400 Heart rate 63 /min Bret Manuel [facility] Work Phone: [employer] 07-04-2022 11:11-0400 Respiratory rate 16 /min Bret Manuel [facility] Work Phone: [employer] 07-04-2022 11:11-0400 SaO2% (BldA) [Mass fraction] 99 % Bret Manuel [facility] Work Phone: [employer] 07-04-2022 11:11-0400 Systolic blood pressure 141 mm[Hg] Bret Manuel DO Work Phone: [employer] 07-03-2022 09:50-0400 Body height 177.8 cm Bret Manuel [facility] Work Phone: [employer] 07-03-2022 09:50-0400 Body mass index (BMI) [Ratio] 38.17 kg/m2 Bret Manuel [facility] Work Phone: [employer] 07-03-2022 09:50-0400 Body weight 120.66 kg Bret Manuel [facility] Work Phone: [facility] Encounters Encounter Date Encounter Type Care Provider Facility Start: 06-06-2024 End: 06-06-2024 Emergency department patient visit JAKE Velázquez [facility] Start: 06-06-2024 End: 06-06-2024 ambulatory [facility] Start: 05-26-2024 End: 05-27-2024 Emergency department patient visit JAKE R [facility] Start: 05-14-2024 End: 05-14-2024 ambulatory JAKE R [facility] Start: 05-11-2024 End: 05-11-2024 ambulatory JAKE R [facility] Start: 05-08-2024 End: 05-08-2024 ambulatory [facility] Start: 05-06-2024 End: 05-06-2024 ambulatory [facility] Start: 05-01-2024 End: 05-01-2024 ambulatory [facility] Start: 04-28-2024 End: 04-28-2024 ambulatory [facility] Start: 02-14-2024 End: 02-14-2024 ambulatory [facility] Start: 2024 End: 2024 ambulatory [facility] Start: 01-18-2024 End: 01-18-2024 ambulatory [facility] Start: 01-03-2024 End: 01-03-2024 ambulatory [facility] Start: 12-21-2023 End: 12-21-2023 ambulatory [facility] Start: 12-18-2023 Orders Only Jake Miramontes DO Work Phone: [employer] Comment on above: 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; Personal history of other diseases of the female genital tract Start: 12-13-2023 End: 12-13-2023 ambulatory JAKE MIRAMONTES [facility] Start: 11-27-2023 End: 11-27-2023 ambulatory BRET MANUEL [facility] Start: 11-16-2023 End: 11-16-2023 ambulatory DOTTIE DIAZ [facility] Start: 11-01-2023 End: 11-03-2023 Emergency department patient visit BEN KENNEDY [facility] Start: 11-01-2023 End: 11-01-2023 ambulatory KARINA STOLL [facility] Start: 03-13-2023 End: 03-14-[address] JAKE MIRAMONTES . Facility: Start: 02-19-2023 End: 02-20-[address] JAKE MIRAMONTES . Facility:[facility] Start: 2023 End: [address] JAKE MIRAMONTES . Facility:[facility] Start: 12-03-2022 End: 12-04-[address] JAKE MIRAMONTES . Facility: Start: 07-03-2022 End: 07-04-2022 Subsequent hospital visit by physician Bret Manuel DO Work Phone: [facility] 2C Ortho/Med Surg Comment on above: S/P laparoscopic sle han gastrectomy (Primary Dx); Obesity, unspecified classification, unspecified obesity type, unspecified whether serious comorbidity present; Gastroesophageal reflux disease, unspecified whether esophagitis present Start: 04-27-2021 ambulatory Chayo Fofana MD Facility:[facility] Procedures Date Procedure Procedure Detail Performing Clinician Start: 07-04-2022 Basic metabolic pane l calcium total Bret Manuel DO Work Phone: Start: 07-03-2022 Basic metabolic pane l calcium total Bret Manuel DO Work Phone: Start: 07-03-2022 End: 07-03-2022 Laps gstrc rstrictiv px longitudinal gastrectomy Bret Manuel DO Work Phone: Start: 07-03-2022 Urine test visual color cmprsn meths Bret Manuel DO Work Phone: Start: 04-17-2021 Microscopic observat ion [Identifier] in Cervix by Cyto stain Jake Miramontes DO Work Phone: Plan of Treatment Date Care Activity Detail Author Start: 11-01-2024 [facility] Start: 04-17-2024 Screening for malign ant neoplasm of cervix [facility] Start: 12-18-2023 End: 12-18-2024 Antimullerian hormone (AMH) Antimullerian hormone (AMH) Lab Routine Female infertility associated with anovulation Personal history of other diseases of the female genital tract Expected: 12/18/2023, Expires: 12/18/2024 [employer] Work Phone: Comment on above: Expected: 12/18/2023 , Expires: 12/18/2024 Start: 12-06-2023 Tobacco Screening Tobacco Screening [facility] Start: 06-28-2023 Influenza vaccination Influenza Vacc ine [facility] Start: 08-07-2022 End: 08-07-2022 Patient encounter procedure 08/07/2022 Office Visit Bariatrics Dottie Diaz, CERTIFIED REHABILITATION COUNSELOR - [employer] [address] [facility] [address] [place] [id number] [employer] Invasive Bariatric Surg Start: 07-12-2022 End: 07-12-2022 Patient encounter procedure 07/12/2022 Office Visit BariatricBret Oconnor, DO [address] [facility] [address] [place] [id number] [facility] Start: 06-28-2022 Influenza vaccination Flu vaccine (# 1) [facility] Start: 2014 Screening for malign ant neoplasm of cervix Pap smear [facility] Start: 01-25-2012 DTaP,Tdap and Td Vaccines (1 - Tdap) DTaP,Tdap and Td Vaccines (1 - Tdap) [facility] Start: 01-25-2012 DTaP/Tdap/Td vaccine (1 - Tdap) DTaP/Tdap/Td vaccine (1 - Tdap) [facility] [employer] Start: 2011 Hepatitis C screening Hepatitis C sc reen [facility] Start: 01-25-2008 HIV screening HIV screen [facility] [employer] Start: 2005 Depression Screen Depression Screen [facility] Start: 2005 Depression Screening Depression Scre ening [facility] Start: 1994 Varicella vaccine (1 of 2 - 2-dose childhood series) Varicella vaccine (1 of 2 - 2-dose childhood series) [facility] Start: 1993 COVID-19 Vaccine (#1) COVID-19 Vacci ne (#1) [facility] Continuous pulse oximetry Pulse oximetry, continuous Respiratory Care Routine Every 4hr until discontinued starting 07/03/2022 [employer] Phone: Comment on above: Every 4hr until disc ontinued starting 07/03/2022 Oxygen therapy [[facility] Data Set] Initiate Oxygen Therapy Protocol Respiratory Care Routine As Needed until discontinued starting 07/03/2022 [employer] Phone: Comment on above: As Needed until disc ontinued starting 07/03/2022 Spirometry panel Incentive brea metry Respiratory Care Routine Every 2hr while awake until discontinued starting 07/03/2022 [employer] Phone: Comment on above: Every 2hr while awak e until discontinued starting 07/03/2022 Surgical Pathology Surgical Path ology Lab Routine Obesity, unspecified classification, unspecified obesity type, unspecified whether serious comorbidity present Gastroesophageal reflux disease, unspecified whether esophagitis present Release Upon Ordering for 1 Occurrences starting 07/03/2022 [employer] Phone: Comment on above: Release Upon Orderin g for 1 Occurrences starting 07/03/2022 End: 07-03-2022 SURGICAL PATHOLOGY REPORT SURGICAL PATHOLOGY REPORT Lab Routine Once for 1 Occurrences starting 07/03/2022 until 07/03/2022 [employer] Phone: Comment on above: Once for 1 Occurrenc es starting 07/03/2022 until 07/03/2022 Payers Date Payer Category Payer Medicaid [employer] MEDICA[employer] [facility] MEDICAID [id number] 2022-Present [address] [place] [address] [id number] 2022 Medicaid [id number] 2021 Unknown [employer] [id number] 2021-Present [phone] [address] [place] [address] [id number] 2021 Unknown 1993 Unknown [id number] [id number]6 1993 Unknown [id number] 2.16.840.1.334575.3.579.2.593 1993 Unknown [id number] 2.16.840.1.713107.3.579.2.593 1993 Unknown [id number] 2.16.840.1.388342.3.579.2.593 1993 Unknown [id number] 2.16.840.1.862877.3.579.2.593 1993 Unknown [id number] 2.16.840.1.250349.3.579.2.175 1993 Unknown [id number] 2.16.840.1.527922.3.579.2.1286 1993 Unknown [id number] 2.16.840.1.078296.3.579.2.1286 1993 Unknown [id number] 2.16.840.1.349280.3.579.2.1286 1993 Unknown [id number] 2.16.840.1.266722.3.579.2.1285 1993 Unknown [id number] 2.16.840.1.021560.3.579.2.1285 1993 Unknown [id number] 2.16.840.1.806089.3.579.2.1285 1993 Unknown [id number] 2.16.840.1.506514.3.579.2.1285 1993 Unknown [id number] 2.16.840.1.894416.3.579.2.1285 1993 Unknown [id number] 2.16.840.1.640190.3.579.2.1285 1993 Unknown [id number] 2.16.840.1.543877.3.579.2.1285 1993 Unknown [id number] 2.16.840.1.353730.3.579.2.1285 1993 Unknown [id number] 2.16.840.1.770145.3.579.2.1285 1993 Unknown [id number] 2.16.840.1.195409.3.579.2.1285 1993 Unknown [id number] 2.16.840.1.830131.3.579.2.1286 Social History Date Type Detail Facility Start: 10-26-2017 End: 06-15-2022 Tobacco smoking status [facility] Never smoked tobacco [employer] Start: 10-26-2017 End: 06-15-2022 Tobacco use and exposure Smokeless tobacco non-user [employer] Phone: Start: 07-04-2022 End: 11-01-2023 Alcohol intake Current drinker of alcohol (finding) [employer] Phone: Start: 12-21-2021 History SDOH Alcohol Comment occ [employer] Phone: Start: 1995 Sex Assigned At Not on file [facility] [employer] Phone: Start: 06-08-2022 End: 06-18-2022 Exposure to SARS-CoV-2 (event) Not sure [employer] Phone: Start: 11-14-2020 End: 11-01-2023 History of Social function [facility] Start: 11-14-2020 End: 11-01-2023 Tobacco use panel [facility] Childcare Unknown [facility] Start: 08-05-2019 Alcohol Comment occassionally [facility] History of Present illness Narrative 07-04-2022 Donna Trammell RN - 07/04/2022 3:00 PM Abner Trammell RN - 07/04/2022 2:41 PM Layne Rushing RN - 07/04/2022 10:21 AM Greer Corcoran DO - 07/04/2022 7:07 AM EDT Note Date & Type Note Facility 07-04-2022 History of Present illness Narrative Patient discharged with all of her belongings. Patient given discharge paperwork and all questions. Patient waiting for ride. Discussed bariatric discharge instructions with patient, allowed time for questions, had patient demonstrate IS, lovenox teaching done and patient voices understanding Bariatric surgery: Daily Progress Note s/p robotic assisted laparoscopic gastric sleeve PATIENT NAME: Phillip Avalos TODAY'S DATE: 07/04/2022, 7:07 AM CC: Postoperative pain SUBJECTIVE: Pt seen and examined at bedside this morning, no acute events overnight. Patient does have some postoperative pain though is controlled with medications. She gets some nausea. Pain increases however he is tolerating clear liquids. Denies flatus or BM. Voiding appropriately. OBJECTIVE: VITALS: BP 133/74 Pulse 63 Temp 98.1 F (36.7 C) (Oral) Resp 16 Ht 5' 10 (1.778 m) Wt 266 lb (120.7 kg) LMP 06/18/2022 Comment: neg hcg SpO2 97% BMI 38.17 kg/m INTAKE/OUTPUT: Intake/Output Summary (Last 24 hours) at 07/04/2022 0707 Last data filed at 07/03/2022 2340 Gross per 24 hour Intake 1413 ml Output 350 ml Net 1063 ml PHYSICAL EXAM: General Appearance: awake, alert, oriented, in no acute distress HEENT: Normocephalic, atraumatic, mucus membranes moist Heart: Regular rate and rhythm Lungs: Normal expansion, No chest wall tenderness, equal chest rise bilaterally Abdomen: Soft, appropriately tender, nondistended, incisions C/D/I Extremities: No cyanosis, pitting edema, rashes noted. Skin: Skin color, texture, turgor normal. No rashes or lesions. Data: CBC with Differential: Lab Results Component Value Date/Time WBC 13.6 07/04/2022 06:36 AM RBC 4.45 07/04/2022 06:36 AM HGB 13.4 07/04/2022 06:36 AM HCT 39.8 07/04/2022 06:36 AM PLT 217 07/04/2022 06:36 AM MCV 89.4 07/04/2022 06:36 AM MCH 30.1 07/04/2022 06:36 AM MCHC 33.7 07/04/2022 06:36 AM RDW 11.6 07/04/2022 06:36 AM BMP: Lab Results Component Value Date/Time NA 135 07/03/2022 04:15 PM K 4.3 07/03/2022 04:15 PM CL 103 07/03/2022 04:15 PM CO2 18 07/03/2022 04:15 PM BUN 11 07/03/2022 04:15 PM CREATININE 0.66 07/03/2022 04:15 PM CALCIUM 8.8 07/03/2022 04:15 PM GFRAA >60 07/03/2022 04:15 PM LABGLOM >60 07/03/2022 04:15 PM GLUCOSE 126 07/03/2022 04:15 PM Radiology Review: No results found. ASSESSMENT: Active Hospital Problems Diagnosis Date Noted S/P laparoscopic sleeve gastrectomy [Z98.84] 07/03/2022 Priority: Medium 27 y.o. female s/p robotic assisted laparoscopic gastric sleeve Plan: Diet: Bariatric clear liquids Continue current pain control regimen, PO>IV DVT prophylaxis: SQH Activity: Continue to encourage ambulation/activity Continue to encourage incentive spirometry DC planning: Today versus tomorrow Medical clearance on chart for or 07/03/22 documented in this encounter [facility] [employer] Phone: Hospital Discharge instructions 07-04-2022 Discharge Instructions Note Date & Type Note Facility 07-04-2022 Hospital Discharg e instructions Garrett Corcoran DO - 07/04/2022 8:07 AM EDT Discharge Instructions for Bariatric Surgery You had a Laparoscopic Sleeve Gastrectomy (83416) surgery to treat obesity. Recovery from this surgery can take several weeks and requires permanent lifestyle changes. What You Will Need Protein Supplements Bariatric Vitamins Abdominal Binder Incentive spirometer (a breathing device) Home Care It is important to keep the incisions clean and dry to promote healing. Shower with soap and rinse and dry thoroughly. If incisions are oozing, you may cover with clean gauze. Use the incentive spirometer every couple of hours. This is to make sure you are breathing deeply and keeping the air sacs within your lungs as open as possible to prevent respiratory problems. Diet It is important to follow the diet progression very closely in order to prevent complications. When arriving home, follow the Phase 1A Liquid Diet for two weeks. Dehydration and changes in bowel habits can occur after surgery. Refer to your educational binder provided pre-op for additional information. Once you move to solids, food must be chewed well. When making food choices, you'll need to ensure adequate protein intake, while avoiding sweets and fatty foods. Eating too much or too quickly can cause vomiting or intense pain under your breastbone. Most people quickly learn how much food they can tolerate. Physical Activity When home, we recommend that you take frequent walks, as tolerated, to prevent complications and increase your endurance. Ask your doctor when you will be able to return to work. You may need to wait 2-[address] you are no longer using pain medications Do not lift anything over ten pounds for 4 weeks. Medications Remember to avoid aspirin, aspirin-containing products, and nonsteroidal anti-inflammatory drugs (NSAIDs, such as ibuprofen, naproxen, etc.). If you were taking these medications before the procedure, and had to stop, ask your doctor when you can resume taking them. Be sure to review your medications with your primary care provider at your follow up office visit. Lifestyle Changes Changing your diet and level of activity are the biggest lifestyle changes associated with your success. Be aware that you may have emotional ups and downs after this surgery. Follow-up Follow up with your primary care physician in one week. Follow up with Dr. Manuel in 1 week. If you don't already have a scheduled appointment, please call the office at [phone]. Call Your Doctor If Any of the Following Occurs Monitor your recovery once you leave the hospital. If any of the following occur, call your doctor: Signs of infection, including fever above 100F Redness, swelling, increasing pain, excessive bleeding, or any discharge from the incision site Persistent nausea and/or vomiting Pain that you can't control with the medications you've been given Shortness of breath and/or chest pain Tachycardia (racing heart sensation) unrelieved by rest Pain, redness and/or swelling in your feet or legs Sudden onset of severe left shoulder pain or severe abdominal pain Any symptoms that are causing you concern In case of an emergency, call 911 immediately. documented in this encounter [employer]: Clinical Note 02-24-2021 Note Date & Type Note Facility 02-24-2021 Note Chief Complaint Referral for bloating, weight gain, and occasional loose stools with blood, but no blood with normal bowel movements, possible celiac, onset after starting depo shots History of Present Illness This is a 26-year-old female that comes to us today complaining of abdominal pain bloating greasy stools without stomach or ulcers or rectal pain. She states she had a colonoscopy performed in [facility] in 2018 as well as EGD and some sort of GI work-up. She is unsure exactly what the work-up entailed although she does tell me she came back positive for celiac. She states at that time they informed her when she had her EGD done that it was extremely inflamed and put her on a pill although she is unsure exactly what it was. She says that she does have quite a bit of coughing she says it sounds almost like a smoker's cough. She does not wake up during the nighttime with symptoms. She has had no vomiting no hematemesis no coffee-ground emesis however she does have quite a bit of nausea. She does not follow a gluten-free diet. She says it is very expensive and is difficult to follow. However currently she wants to see if she truly has celiac as she would like to proceed with the family and get her abdominal issues taken care of. Regard to her stools she says that she will have abdominal bloating pain this will be followed by greasy stool as well as blood. Said there is no triggering factors in regard to eating. She says it happens monthly or so sometimes more frequently. Her concern also is that she is extremely bloated so much so that she gets ask if she is all the time although she is not she is currently on her period. She feels that when she was on the Depo shot this contributed to part of her issues she had excruciating pain much more frequently than she does now after stopping Depo shot. She has been off the Depo shot for more than a year. But still has persistent bloating. The excruciating abdominal pain has stopped Symptoms: See above Time Frame: Since 2018 however increasing over the last several months Aggravating Factors: Patient does not correlate any food with her abdominal pain or her rectal bleeding or greasy stools Alleviating Factors: None Weight Loss: None Stools/blood/character/frequency: Intermittently greasy followed abdominal pain with blood at the end of her stools she says they are mucoid-like in nature N/V/blood/frequency: Positive nausea Rolette Score: Typically she rates it for although up to 6 with blood MELD Score: Andry IV Score: Previous Labs: She states last blood work was done in [place] 2018 [place] although I currently do not have the reports to review Previous Diagnostics (last colonoscopy/EGD, etc): Pathology Reports: No qualifying data available. Possibly in 2018 I do not currently have any reports to review Primary Provider: None. None Specialty Providers: ETOH: Smoking/Vaping/Alcohol Use: Alcohol Details: Current, 1-2 times per year Substance Abuse Details: Denies All Tobacco Details: Never (less than 100 in lifetime) Use:. NSAIDS/Tylenol/Recent ATBs: None Immunizations: No influenza, no Covid, unsure of last tetanus Immunizations Administered No result available Diet: She does not follow a gluten-free diet Exercise: Currently in school no regular exercise Recent travel/move: None Screening: DEXA, Mamm, Vision, Skin none recent Recent hospitalizations: None Review of Systems Constitutional: No fevers, chills, sweats Eye: No recent visual problems ENMT: No ear pain, nasal congestion, sore throat Respiratory: No shortness of breath, cough Cardiovascular: No Chest pain, palpitations, syncope Gastrointestinal: See HPI above Genitourinary: No hematuria Jared/Lymph: Negative for bruising tendency, swollen lymph glands Endocrine: Negative for excessive thirst, excessive hunger Musculoskeletal: No back pain, neck pain, joint pain, muscle pain, decreased range of motion Integumentary: No rash, pruritus, abrasions Neurologic: Alert & oriented X 4 Psychiatric: No anxiety, depression Physical Exam Vitals & Measurements T: 37 ?C (Temporal Artery) HR: 61 (Peripheral) BP: 122/76 SpO2: 99 HT: 180 cm WT: 122.7 kg BMI: 37.87 General: Alert and oriented, well nourished, no acute distress. Eye: PERR, normal conjunctiva, no scleral icterus. HENT: Normocephalic, No active drainage noted to external ears, normal hearing, no active nasal drainage, no errythema or oral lesions noted. Neck: Supple, non-tender. Lungs: Clear to auscultation and percussion, non-labored respiration. Heart: Normal rate, regular rhythm. Abdomen: Soft large, striae present to the lower abdominal area and just up to the umbilicus, active bowel sounds no rebound tenderness, mild tenderness mid abdomen abdomen up to epigastric area. Musculoskeletal: Observed good range of motion. Skin: Skin is warm, dry and pink, no rashes or lesions to exposed areas. Neurologic: Awake, (more content not included)... [facility] Evaluation note Note Date & Type Note Facility Evaluation note Diagnosis S/P laparoscopic sleeve gastrectomy- Primary Obesity, unspecified classification, unspecified obesity type, unspecified whether serious comorbidity present Gastroesophageal reflux disease, unspecified whether esophagitis present documented in this encounter [facility] [employer] Work Phone: Evaluation note Note Date & Type Note Facility Evaluation note Diagnosis Female infertility associated with anovulation Personal history of other diseases of the female genital tract documented in this encounter [id number] Instructions Note Date & Type Note Facility Instructions Not on filedocumented in this en counter [facility] Summary Purpose Family History No Family History Records FoundNo Family History Records FoundNo Family History Records FoundNo Family History Records FoundNo Family History Records Found Advance Directives No Advanced Directives Records FoundLatest Code Status on File Code Status Date Activated Date Inactivated Comments Full Code 07/03/2022 5:43 PM Additional Source Comments INFORMATION SOURCE (unrecogn ized section and content) DATE CREATED AUTHOR 02/28/2021 [facility] DATE CREATED AUTHOR AUTHOR'S ORGANIZ ATION 04/27/2021 [facility] DATE CREATED AUTHOR AUTHOR'S ORGANIZ ATION 03/14/2023 [facility] DATE CREATED AUTHOR AUTHOR'S ORGANIZ ATION 11/29/2023 [facility] DATE CREATED AUTHOR AUTHOR'S ORGANIZ ATION 06/08/2024 [facility] Reason for Visit (unrecogniz ed section and content) Specialty Diagnoses / Procedures Referred By Sis parmar Referred To Contact Diagnoses Obesity, unspecified classification, unspecified obesity type, unspecified whether serious comorbidity present Gastroesophageal reflux disease, unspecified whether esophagitis present OBESITY, GERD Procedures AL LAP, MEHUL RESTRICT PROC, LONGITUDINAL GASTRECTOMY XI ROBOTIC LAPAROSCOPIC GASTRECTOMY SLEEVE, EGD, LIVER BIOPSY - GI SCHEDULED Bret Manuel DO [address] [place] [address] [facility] [address] [place] [address] Referral ID Status Reason Start Date Expiration Date Visits Re quested Visits Authorized [id number] 1 1 Ordered Prescriptions (unrec ognized section and content) Prescription Sig Dispensed Refills Start Date End Da te enoxaparin (LOVENOX) 40 MG/0.4ML Inject 0.4 mLs into the skin 2 times daily for 14 days 11.2 mL 0 07/04/2022 07/18/2022 cyclobenzaprine (FLEXERIL) 10 MG tablet Take 1 tablet by mouth 3 times daily as needed for Muscle spasms 28 tablet 0 07/04/2022 07/14/2022 promethazine (PHENERGAN) 25 MG tablet Take 1 tablet by mouth every 6 hours as needed for Nausea 28 tablet 0 07/04/2022 07/11/2022 oxyCODONE-acetaminophen (PERCOCET) 5-325 MG per tabletIndications:S/P laparoscopic sleeve gastrectomy Take 1 tablet by mouth every 6 hours as needed for Pain for up to 7 days. 28 tablet 0 07/04/2022 07/11/2022 Scheduled Active and Recently Administ ered Medications (unrecognized section and content) Medication Order 07/02/2022 07/03/2022 07/04/2022 aprepitant (EMEND) capsule 80 mg (COMPLETED) 80 mg, Oral, ONCE, 1 dose, On Sat07/04/22 at 1145 1213 (Given - Provid er: Donna Trammell RN) ceFAZolin (ANCEF) 2000 mg in sterile water 20 mL IV syringe (COMPLETED) 2,000 mg, IntraVENous, EVERY 8 HOURS, 2 doses, First dose on Sat07/03/22 at 2100, Last dose on Sat07/04/22 at 0500, Antimicrobial Indications: Surgical Prophylaxis, Administer over 5 mins. 2115 (Given - Provider: Chichi Kwong RN) 0509 (Given - Provider: Chichi Kwong RN) ceFAZolin (ANCEF) 3000 mg in sterile water 30 mL IV syringe (COMPLETED) 3,000 mg, IntraVENous, ONCE, 1 dose, On Sat07/03/22 at 1000, Antimicrobial Indications: Surgical Prophylaxis, Administer over 5 mins., Pre-op (day of surgery) 1337 (Given - Provider: Robert Cobb APRN - [employer] SALES CONSULTANT) heparin (porcine) injection 5,000 Units (COMPLETED) 5,000 Units, SubCUTAneous, ONCE, 1 dose, On Sat07/03/22 at 1000, Pre-op (day of surgery) 1009 (Given - Provider: Bandar Burns RN) heparin (porcine) injection 5,000 Units 5,000 Units, SubCUTAneous, EVERY 8 HOURS SCHEDULED (3 times per day), First dose on Sat07/03/22 at 1630, Until Discontinued 1750 (Not Given - Provider: Gypsy Stoner RN - Reason: Other - Comment: per OR)2200 (Given - Provider: Chichi Kwong RN) 0607 (Given - Provider: Chichi Kwong RN)1435 (Given - Provider: Donna Trammell RN)2200 (Due) ipratropium-albuterol (DUONEB) nebulizer solution 1 ampule 1 ampule, Inhalation, EVERY 6 HOURS WHILE AWAKE, First dose on Sat07/03/22 at 1630, Until Discontinued, Initiate RT Bronchodilator Protocol: Yes - Inpatient Protocol, q6 hours and PRN 1630 (Due)1939 (Given - Provider: Luh Coffey RCP) 0930 (Given - Provider: Bandar Hernandez)1500 (Not Given - Provider: Adi Bernal RCP - Reason: Patient/family refused)1999 (Due) ketorolac (TORADOL) injection 15 mg (COMPLETED) Ketorolac is contraindicated in patients with advanced renal impairment and in patients at risk of renal failure due to volume depletion. For 65 years of age and older OR weight less than 50 kg, use 15 mg IV every 6 hours; MAX dose: 60 mg/day. Dose greater than 30 mg must be administered via intramuscular route. Do not administer for more than 5 days., 15 mg, IntraVENous, ONCE, 1 dose, On Sat07/04/22 at 1145, Do not administer for more than 5 days. 1213 (Given - Provid er: Donna Trammell RN) midazolam PF (VERSED) injection 2 mg (COMPLETED) 2 mg, IntraVENous, ONCE, 1 dose, On Sat07/03/22 at 1015 1111 (Given - Provider: Bandar Burns RN) pantoprazole (PROTONIX) tablet 40 mg 40 mg, Oral, DAILY, First dose on Sat07/03/22 at 1800, Until Discontinued, Do not crush or break., Post-op 1820 (Given - Provider: Gypsy Stoner RN) 0836 (Given - Provider: Donna Trammell RN) scopolamine (TRANSDERM-SCOP) transdermal patch 1 patch 1 patch, TransDERmal, Administer over 72 Hours, ONCE, On Sat07/03/22 at 1015, For 1 dose, Apply patch to hairless area behind the ear. 1012 (Patch Applied - Provider: Bandar Burns RN) scopolamine (TRANSDERM-SCOP) transdermal patch 1 patch 1 patch, TransDERmal, Administer over 72 Hours, EVERY 72 HOURS, First dose on Sat07/06/22 at 1000, delivers 1 mg over 3 days. Apply patch to hairless area behind the ear., Post-op sodium chloride flush 0.9 % injection 5-40 mL 5-40 mL, IntraVENous, EVERY 12 HOURS SCHEDULED (2 times per day), First dose on Sat07/03/22 at 2100, Until Discontinued, For Line Patency: Peripheral IV = 5 mL; Midline or Central Line = 10 mL/lumen. If following IV push medication, administer flush at same rate as the IV push. Flush volume is determined by type of infusion therapy being given. For non-viscous solutions use: Peripheral IV = 5 mL Midline or Central Line = 10 mL/lumen For viscous solutions (i.e. blood components, parenteral nutrition, contrast media, or after obtaining blood sample) use: Peripheral IV = 10 mL Midline or Central Line = 20 mL/lumen, Post-op 2123 (Not Given - Provider: Chichi Kwong RN - Reason: IV Fluid Infusing) 921 (Not Given - Provider: Donna Trammell RN - Reason: IV Fluid Infusing)2100 (Due) Continuous Medication Order 07/02/2022 07/03/2022 07/04/2022 lactated ringers infusion 1,000 mL (CANCELED) 1,000 mL, IntraVENous, at 50 mL/hr, CONTINUOUS, Starting on Sat07/03/22 at 1000, Pre-op (day of surgery) 1008 (New Bag - Provider: Bandar Burns RN)1322 (NoRateChange - Provider: DARIA Ruiz CRNA)1413 (Paused - Provider: DARIA Ruiz CRNA - Comment: Switch to gravity)1414 (Restarted - Provider: DARIA Ruiz CRNA)1456 (New Bag - Provider: DARIA Ruiz CRNA)1630 (Anesthesia Volume Adjustment - Provider: DARIA Ruiz CRNA) 1354 (Stopped - Provider: Donna Trammell, SUZANNE) lactated ringers infusion (CANCELED) IntraVENous, at 125 mL/hr, CONTINUOUS, Starting on Sat07/03/22 at 1800, Post-op 1637 (New Bag - Provider: Gypsy Stoner RN)2113 (New Bag - Provider: Chichi Kwong RN) 0520 (New Bag - Provider: Chichi Kwong, SUZANNE)1354 (Stopped - Provider: Donna Trammell, SUZANNE) PRN Medication Order 07/02/2022 07/03/2022 07/04/2022 0.9 % sodium chloride infusion IntraVENous, at 5-250 mL/hr, PRN, if patient receiving piggyback infusions and maintenance fluids are not ordered OR KVO fluids to protect IV site / prevent frequent line interruptions/ long duration, Starting on Sat07/03/22 at 1743, For piggyback infusion, administer at same rate as piggyback for a total of 25 mL. Enter 25 mL into dose field and piggyback rate into rate field of order. If piggyback is infusing at a rate less than 100 mL/hr, enter 25 mL into dose field and 100 mL/hr into rate field of order. For KVO fluids, enter rate of 20 mL/hr or less into rate field of order., Post-op 1339 (Stopped - Provider: Donna Trammell RN) benzocaine-menthol (CEPACOL SORE THROAT) lozenge 1 lozenge 1 lozenge, Oral, EVERY 2 HOURS PRN, Starting on Sat07/04/22 at 0033, Until Discontinued, Sore Throat 0041 (Given - Provid er: Chichi Kwong RN) bupivacaine (MARCAINE) 0.5 % injection (CANCELED) PRN, Starting on Sat07/03/22 at 1549, Until Sat07/03/22 at 1555, Intra-op 1549 (Given - Provider: Bret Manuel, DO - Comment: [place]) cyclobenzaprine (FLEXERIL) tablet 10 mg 10 mg, Oral, 3 TIMES DAILY PRN, Starting on Sat07/03/22 at 1601, Until Discontinued, Muscle spasms 0516 (Given - Provid er: Chichi Kwong RN) HYDROmorphone (DILAUDID) injection 0.25 mg (COMPLETED) HYDROmorphone (DILAUDID) 1.5mg IV is equivalent to morphine 10mg IV, 0.25 mg, IntraVENous, EVERY 5 MIN PRN, 2 doses, Starting on Sat07/03/22 at 1605, Until Discontinued, Pain Moderate (4-6), For Phase I. If Phase II oral narcotics have been administered in the last 60 minutes, do not administer IV narcotics unless specifically approved by provider., PACU only 1645 (Given - Provider: Diane Brandt RN)1650 (Given - Provider: Diane Brandt RN) HYDROmorphone (DILAUDID) injection 0.5 mg (COMPLETED) HYDROmorphone (DILAUDID) 1.5mg IV is equivalent to morphine 10mg IV, 0.5 mg, IntraVENous, EVERY 5 MIN PRN, 2 doses, Starting on Sat07/03/22 at 1605, Until Discontinued, Pain Severe (7-10), For Phase I. If Phase II oral narcotics have been administered in the last 60 minutes, do not administer IV narcotics unless specifically approved by provider., PACU only 1628 (Given - Provider: Diane Brandt RN)1634 (Given - Provider: Diane Brandt RN) HYDROmorphone (DILAUDID) injection 1 mg HYDROmorphone (DILAUDID) 1.5mg IV is equivalent to morphine 10mg IV, 1 mg, IntraVENous, EVERY 3 HOURS PRN, Starting on Sat07/03/22 at 1743, Until Discontinued, Pain Moderate (4-6), Pain Severe (7-10), If oral and IV narcotics ordered, use oral first and only use IV if oral is ineffective or cannot take oral. Do Not give oral and IV within 1 hour of each other unless specifically ordered., Post-op 1753 (Given - Provider: Gypsy Stoner RN)2206 (Given - Provider: Chichi Kwong RN) 0516 (Given - Provider: Chichi Kwong RN) ondansetron (ZOFRAN) injection 4 mg 4 mg, IntraVENous, EVERY 6 HOURS PRN, Starting on Sat07/03/22 at 1743, Until Discontinued, Nausea, Post-op 0044 (Given - Provid er: Chichi Kwong RN)0837 (Given - Provider: Donna Trammell RN) oxyCODONE-acetaminophen (PERCOCET) 5-325 MG per tablet 1 tablet(Linked Group 1) Mg/kg dosing is based on the oxycodone component., 1 tablet, Oral, EVERY 6 HOURS PRN, Starting on Sat07/03/22 at 1601, Until Discontinued, Pain Moderate (4-6), Maximum dose of acetaminophen is 4000 mg from all sources in 24 hours. 0133 (Given - Provid er: Chichi Kwong RN)0837 (Given - Provider: Donna Trammell RN)1435 (Given - Provider: Donna Trammell RN) oxyCODONE-acetaminophen (PERCOCET) 5-325 MG per tablet 2 tablet(Linked Group 1) Mg/kg dosing is based on the oxycodone component., 2 tablet, Oral, EVERY 6 HOURS PRN, Starting on Sat07/03/22 at 1601, Until Discontinued, Pain Severe (7-10), Maximum dose of acetaminophen is 4000 mg from all sources in 24 hours. 0133 (See Alternativ e - Provider: Chichi Kwong RN)0837 (See Alternative - Provider: Donna Trammell RN)1435 (See Alternative - Provider: Donna Trammell RN) phenol 1.4 % mouth spray 1 spray 1 spray, Mouth/Throat, EVERY 2 HOURS PRN, Starting on Sat07/04/22 at 0034, Until Discontinued, Sore Throat promethazine (PHENERGAN) tablet 25 mg 25 mg, Oral, EVERY 6 HOURS PRN, Starting on Sat07/03/22 at 1601, Until Discontinued, Nausea simethicone (MYLICON) chewable tablet 40 mg 40 mg, Oral, EVERY 6 HOURS PRN, Starting on Sat07/04/22 at 1121, Until Discontinued, Cramping 1213 (Given - Provid er: Donna Trammell RN) sodium chloride flush 0.9 % injection 5-40 mL 5-40 mL, IntraVENous, PRN, Starting on Sat07/03/22 at 1743, Until Discontinued, Line Care, After every IV line use, For Line Patency: Peripheral IV = 5 mL; Midline or Central Line = 10 mL/lumen. If following IV push medication, administer flush at same rate as the IV push. Flush volume is determined by type of infusion therapy being given. For non-viscous solutions use: Peripheral IV = 5 mL Midline or Central Line = 10 mL/lumen For viscous solutions (i.e. blood components, parenteral nutrition, contrast media, or after obtaining blood sample) use: Peripheral IV = 10 mL Midline or Central Line = 20 mL/lumen, Post-op Linked Groups Order Group 1: oxyCODONE-acetaminophen (PERCOCET) 5-325 MG per tablet 1 tabletJump to med Mg/kg dosing is based on the oxycodone component.
1 tablet, Oral, EVERY 6 HOURS PRN, Starting on Sat07/03/22 at 1601, Until Discontinued, Pain Moderate (4-6)
Maximum dose of acetaminophen is 4000 mg from all sources in 24 hours.
Or oxyCODONE-acetaminophen (PERCOCET) 5-325 MG per tablet 2 tabletJump to med Mg/kg dosing is based on the oxycodone component.
2 tablet, Oral, EVERY 6 HOURS PRN, Starting on Sat07/03/22 at 1601, Until Discontinued, Pain Severe (7-10)
Maximum dose of acetaminophen is 4000 mg from all sources in 24 hours.
Care Teams (unrecognized sec tion and content) Catalyst Concentration Operator Relationship Specialty Start Date End Date Jake Miramontes MD [address] [place] [place] [address] PCP - General Obstetrics & Gynecology 06/18/22 Catalyst Concentration Operator Relationship Specialty Start Date End Date Karina Stoll DO [address] [place] [address] PCP - General Family Medicine 11/01/23 FOR RECORDS PERTAINING TO PATIENTS WHO ARE OR HAVE BEEN ENROLLED IN A CHEMICAL DEPENDENCY/SUBSTANCEABUSE PROGRAM, SOME INFORMATION MAY BE OMITTED. This clinical summary was aggregated from multiple sources. Caution should be exercised in using it in the provision of clinical care. This summary normalizes information from multiple sources, and as a consequence, information in this document may materially change the coding, format and clinical context of patient data. In addition, data may be omitted in some cases. CLINICAL DECISIONS SHOULD BE BASED ON THE PRIMARY CLINICAL RECORDS. [employer] provides no warranty or guarantee of the accuracy or completeness of information in this document.
[2024-06-13 09:20] LABS: Basophils Percent Auto 0.4 % (0.2-2.0); Eosinophils Absolute Auto 0.3 10^3/uL (0.0-0.7); Eosinophils Percent Auto 4.3 % (0.9-7.0); Hematocrit 35.3 % (36.0-48.0); Hemoglobin 12.1 g/dL (12.0-16.0); Immature Granulocytes Abs Auto 0.02 10^3/uL (0.00-0.03); Immature Granulocytes Pct Auto 0.3 % (0.0-0.5); Lymphocytes Absolute Auto 1.7 10^3/uL (1.2-3.8); Lymphocytes Percent Auto 25.2 % (20.5-60.0); Mean Corpuscular HGB Conc 34.3 g/dL (29.9-35.2); Mean Corpuscular Hemoglobin 31.5 pg (26.7-34.0); Mean Corpuscular Volume 91.9 fL (81.0-99.0); Mean Platelet Volume 9.3 fL (9.5-13.5); Monocytes Absolute Auto 0.5 10^3/uL (0.3-0.8); Monocytes Percent Auto 7.3 % (1.7-12.0); Neutrophils Absolute Auto 4.2 10^3/uL (1.4-6.5); Neutrophils Percent Auto 62.5 % (43.0-75.0); Platelet Count 188 10^3/uL (150-450); Red Blood Count 3.84 10^6/uL (4.20-5.40); Red Cell Distribution Width 12.5 % (11.0-15.0); White Blood Count 6.7 10^3/uL (4.0-11.0)
[2024-06-13 09:47] LABS: Estimated Average Glucose 91 mg/dL; Glycohemoglobin A1C 4.8 % (4.5-6.2)
[2024-06-14 08:08] LABS: Rubella Antibodies, IgG 1.42 index (Immune >0.99)
[2024-06-14 09:07] LABS: Rapid Plasma Reagin, Quant Non Reactive titer (NonRea<1:1)
[2024-06-14 10:08] LABS: HCV Ab Non Reactive (Non Reactive); HIV Ab/p24 Ag Screen Non Reactive (Non Reactive)
[2024-06-14 11:09] LABS: HBsAg Screen Negative (Negative)
== END 2024-06-13 08:19 | disposition home or self-care (01) ==
LOC: LAB 08:23
PROVIDERS: Visit Provider Obstetrics & Gynecology
DX: N92.6 Irregular menstruation, unspecified (principal); Z36.0 Encounter for antenatal screening for chromosomal anomalies
CPT/HCPCS: 36415; 83036; 85025; 86592; 86762; 86803; 86850; 86870; 86900; 86901; 87086; 87340; 87389

== ENCOUNTER 2024-09-01 10:22 | Outpatient (OUT) | payer MEDICAID, SELFPAY ==
--- NOTE | 2024-09-01 10:25 | US_ITS ---
[address] [address] Patient Name: SKYLER NORIEGA MRN: [id number] date: 1995 Sex: F Assigned Patient Location: [facility] Current Patient Location: [facility] Accession/Order Number: [id number] Exam Date: 09/01/2024 10:26 Report Date: 09/01/2024 11:50 At the request of: GERALDINE HOLLIDAY Procedure: US OB anatomy EXAMINATION: US OB anatomy, US OB cervical length HISTORY: ANATOMY COMPARISON: No relevant comparison available. TECHNIQUE: Transabdominal sonographic examination was performed for obstetrical and evaluation. FINDINGS: Number: 1 Heart Rate: 149 bpm H.B. /min Amniotic Fluid Volume: Subjectively normal position: Variable Placental Location: Anterior, placental edge is 7 cm from the internal os Cervix Length: 4.11 cm , closed Normal anatomy: Lateral ventricles, cerebellum, posterior fossa, nose, lips, orbits, four-chamber heart, RVOT, LVOT, diaphragm, stomach, kidneys, abdominal cord insertion, bladder, umbilical arteries, three-vessel cord, spine, extremities BIOMETRY: BPD: 5.29 cm; 22 weeks 0 days; 82.30 % HC: 20.74 cm; 22 weeks 6 days; 95 % AC: 18.44 cm; 23 weeks 2 days; 94.70 % FL: 3.96 cm; 22 weeks 5 days; 88.60 % EFW:523.68 g; 97 %, 1 lb. 3 oz. FL/AC: 21.48 FL/BPD: 74.86 HC/AC: 1.12 GESTATIONAL AGE: Age by EDC: 21 weeks 1 day KIERRA by EDC: 2025-01-11 Age by current US: 22 weeks 5 days KIERRA by current US: 2024-12-31 US/US OB anatomy IMPRESSION: Large for gestational age. Estimated weight greater than the 97th percentile Otherwise normal anatomy scan Closed cervix measuring 4.1 cm length *Reference: [facility] Practice Guideline for the performance of Obstetric Ultrasound Examinations, July 28, 2007. Electronically authenticated by: NATALIE KHAN Date: 09/01/2024 11:50
--- NOTE | 2024-09-01 10:25 | US_ITS ---
[address] [address] Patient Name: SKYLER NORIEGA MRN: [id number] date: 1995 Sex: F Assigned Patient Location: [facility] Current Patient Location: [facility] Accession/Order Number: [id number] Exam Date: 09/01/2024 10:25 Report Date: 09/01/2024 11:50 At the request of: GERALDINE HOLLIDAY Procedure: US OB cervical length EXAMINATION: US OB anatomy, US OB cervical length HISTORY: ANATOMY COMPARISON: No relevant comparison available. TECHNIQUE: Transabdominal sonographic examination was performed for obstetrical and evaluation. FINDINGS: Number: 1 Heart Rate: 149 bpm H.B. /min Amniotic Fluid Volume: Subjectively normal position: Variable Placental Location: Anterior, placental edge is 7 cm from the internal os Cervix Length: 4.11 cm , closed Normal anatomy: Lateral ventricles, cerebellum, posterior fossa, nose, lips, orbits, four-chamber heart, RVOT, LVOT, diaphragm, stomach, kidneys, abdominal cord insertion, bladder, umbilical arteries, three-vessel cord, spine, extremities BIOMETRY: BPD: 5.29 cm; 22 weeks 0 days; 82.30 % HC: 20.74 cm; 22 weeks 6 days; 95 % AC: 18.44 cm; 23 weeks 2 days; 94.70 % FL: 3.96 cm; 22 weeks 5 days; 88.60 % EFW:523.68 g; 97 %, 1 lb. 3 oz. FL/AC: 21.48 FL/BPD: 74.86 HC/AC: 1.12 GESTATIONAL AGE: Age by EDC: 21 weeks 1 day KIERRA by EDC: 2025-01-11 Age by current US: 22 weeks 5 days KIERRA by current US: 2024-12-31 US/US OB cervical length IMPRESSION: Large for gestational age. Estimated weight greater than the 97th percentile Otherwise normal anatomy scan Closed cervix measuring 4.1 cm length *Reference: [facility] Practice Guideline for the performance of Obstetric Ultrasound Examinations, July 28, 2007. Electronically authenticated by: NATALIE KHAN Date: 09/01/2024 11:50
--- OUTSIDE RECORDS SUMMARY | 2024-09-01 10:44 | XMS_ITS | CCD ---
Author Organization [facility] Care Team Providers Care Loading Unit Operator Seating Name Role Phone Ct LEAL, Chayo Mina Attending Unavailable Jake Miramontes MD Primary Care Provider 1( [phone] MG ., DR CHANDLER Admitting Unavailable REQUEST, NONE LISTED Primary Care Unavaila ble MG ., DR CHANDLER Consulting Unavailable MG ., DR CHANDLER Attending Unavailable MG ., DR CHANDLER Admitting Unavailable REQUEST, DR NONE LISTED Primary Care Unavaila ble MG ., DR CHANDELR Consulting Unavailable MG ., DR CHANDLER Attending Unavailable MG ., DR CHANDLER Consulting Unavailable REQUEST, DR NONE LISTED Primary Care Unavaila ble MG ., DR CHANDLER Attending Unavailable MG ., DR CHANDLER Admitting Unavailable MG ., DR CHANDLER Admitting Unavailable REQUEST, DR NONE LISTED Primary Care Unavaila ble WARNER ROBINS, DR NATALIE Yung Consulting Unavailable MG ., DR CHANDLER Attending Unavailable MG ., DR CHANDLER Consulting Unavailable REQUEST, DR MIRANDA LISTED Consulting Unavaila ble BRET MANUEL Attending Unavailable BRET MANUEL Admitting Unavailable JAKE MIRAMONTES Primary Care Unavailable Rumschlag DO, Karina K Primary Care Provider [phone] JAKE MIRAMONTES Attending Unavailable KATHERINE DE LA TORRE Attending Unavailable Unavailable Primary Care Provider Unavailabl e RUMSCHLAG, KARINA K Referring Unavailable RUMSCHLAG, KARINA K Primary Care Unavailable MOMITESH, HALI F Referring Unavailable RUMSCHLAG, KARINA K Primary Care Unavailable RUMSCHLAG, KARINA K Referring Unavailable RUMSCHLAG, KARINA K Primary Care Unavailable JAKE MIRAMONTES Referring Unavailable RUMSCHLAG, KARINA K Primary Care Unavailable RUMSCHLAG, KARINA K Referring Unavailable RUMSCHLAG, KARINA K Primary Care Unavailable REGAN MALIKOD Apryl Referring Unavailable RUMSCHLAG, KARINA K Primary Care [...] Unavailable MG, JAKE R Primary Care Unavailable DOTTIE DIAZ Referring Unavailable RUMSCHLAG, KARINA [...] Primary Care Unavailable NATALIE PATTEN Attending Unavailable MG, JAKE R Referring Unavailable MG, JAKE R Primary Care Unavailable MG, JAKE R Referring Unavailable MG, JAKE R Primary Care Unavailable MG, JAKE R Referring Unavailable MG, JAKE R Primary Care Unavailable MG, JAKE R Primary Care Unavailable ROGER MCKENZIE Attending Unavailable Allergies Allergy Classification Reported Allergen(s) Allergy Type Date of Onset Reaction(s) Facility (3 sources) Latex; Translations: [LATEX] Propensity to adverse reactions to drug 09-22-20 20 [facility] (7 sources) Sulfamethoxazole / Trimethoprim; Translations: [SULFAMETHOXAZOLE-T RIMETHOPRIM] Drug Allergy 07-02-20 17 [facility] [employer] Work Phone: (5 sources) Latex Propensity to adverse reactions 09-22-20 20 Itching, Rash [facility] Medications Current Medications Medication Drug Class(es) Dates [...] (500 mg total) before bedtime. 0 Active hemtkwxu-yxsl-FG-calci um &mins (THERAGRAN-M) 9 mg iron-400 mcg tablet (1 source) dnyncqbi-qjmp-FJ -calciu m &mins (THERAGRAN-M) 9 mg iron-400 mcg tablet Take 1 tablet by mouth in the morning. 0 Active omeprazole 20 mg delayed release oral capsule (5 sources) Proton Pump Inhibitor Start: End: take 1 capsule by mouth before mealtime omeprazole (PriLOSEC) [address] capsule Indications: Gastroesophageal Reflux Disease , Heartburn Take 1 capsule (20 mg) by mouth in the morning. Take before meals. Do not crush or chew.. 30 capsule 3 07/07/2024 Active 2 ml ondansetron 2 mg/ml injection (1 source) Serotonin-3 Receptor Antagonist Start: ondansetron (ZOFRAN) injection 4 mg pantoprazole 40 mg delayed release oral tablet (1 source) Proton Pump Inhibitor Start: pantoprazole (PROTONIX) tablet 40 mg phenol 14 mg/ml mouthwash (1 source) Start: phenol 1.4 % mouth spray 1 spray polysaccharide iron complex 391 mg oral capsule (5 sources) Start: End: take 1 capsule by mouth once daily iron polysaccharides (ProFe) 391.3 (180 Fe) MG capsule Indications: Antepartum anemia Take 1 capsule (391.3 mg) by mouth Daily 90 capsule 3 06/08/2024 06/08/2025 Active Vit-Fe Fumarate-FA ( Vitamins) 28-0.8 MG tablet (4 sources) Start: End: 025 take 1 tablet by mouth once daily Vit-Fe Fumarate-FA ( Vitamins) 28-0.8 MG tablet Indications: Second trimester Take 1 tablet by mouth Daily 30 tablet 6 08/11/2024 08/11/2025 Active Start: 05-05-2024 End: 08-03-2024 take 1 tablet by mouth once daily Vit-Fe Fumarate-FA ( Vitamins) 28-0.8 MG tablet Indications: Positive urine test , Missed menses , Positive blood test Take 1 tablet by mouth Daily 90 tablet 3 05/05/2024 08/03/2024 Active promethazine hydrochloride 25 mg oral tablet (2 sources) Phenothiazine Start: 07-04-2022 End: 07-11-2022 take 1 tablet [...] Episodic Immunizations and screening for infectious disease (3 sources) Encounter for screening for human papillomavirus (HPV); Translations: [Exposure to sexually transmissible disorder] Onset: 3 08-03-2024 Episodic Menstrual disorders (6 sources) Missed period; Translations: [Irregular menstruation, unspecified] Onset: 4 05-05-2024 Chronic Nutritional deficiencies (1 source) Vitamin D [...] - obesity; Translations: [Obesity, unspecified] 01-31-2022 Chronic Ovarian cyst (4 sources) Unspecified ovarian cyst, right side; Translations: [UNSPECIFIED OVARIAN CYST RIGHT SIDE] Onset: 3 Episodic Residual codes; unclassified (2 sources) Gestation period, 17 weeks; Translations: [17 weeks gestation of ] 08-03-2024 Episodic Thyroid disorders (3 sources) Autoimmune thyroiditis; Translations: [Thyrotoxicosis, unspecified without thyrotoxic crisis or storm] Onset: 4 Chronic Unclassified (1 source) Vaginal [...] Overweight; Translations: [Overweight] Onset: 11-16-2023 Episodic Other and delivery including normal (8 sources) Serum test positive; Translations: [Encounter for test, result positive] Onset: 04-27-2024 05-05-2024 Episodic Other screening for suspected conditions (not mental disorders or infectious disease) (10 sources) Encounter for screening for malignant neoplasm of cervix; Translations: [Alpha-fetoprotein blood test status] Onset: 2023 Episodic Residual codes; unclassified (2 sources) Acquired absence of other specified parts of digestive tract; Translations: [Acquired absence of other specified parts of digestive tract] Onset: 11-27-2023 Episodic Residual codes; unclassified (1 source) Less than 8 weeks gestation of ; Translations: [Less than 8 weeks gestation of ] Onset: 05-26-2024 Episodic Unclassified (1 source) Onset: 04-17-2021 04-17-2021 Results Test Name Value Interpretation Reference Range Facility CBC AND AUTO DIFFon 08-26-20 24 ABSOLUTE BASOPHIL 0.0 X10E9/L Normal 0.0-0.2 [facility] Comment on above: Performed By: #### Miladys BCA, CMP, 3040-3, 08714-2, 10376-0 ####[facility] ([id number])[address] [place] [address] 24082 ABSOLUTE NEUTROPHIL 5.8 X10E9/L Normal 1.5-6.6 [facility] Comment on above: Performed By: #### Miladys BCA, CMP, 3040-3, 86232-6, 49202-3 ####[facility] ([id number])[address] [place] [address] 29587 Basophils/100 WBC (Bld) 0.2 % Normal [facility] Comment on above: Performed By: #### Miladys BCA, CMP, 3040-3, 07290-9, 83552-5 ####[facility] ([id number])[address] [place] [address] 29377 Eosinophils (Bld) [#/Vol] 0.2 10*3/uL Normal 0.0-0.4 [facility] Comment on above: Performed By: #### Miladys BCA, CMP, 3040-3, 97525-2, 23095-2 ####[facility] ([id number])[address] [place] [address] 82176 Eosinophils/100 WBC (Bld) 2.9 % Normal [facility] Comment on above: Performed By: #### Miladys BCA, CMP, 3040-3, 14190-1, 26167-3 ####[facility] ([id number])[address] [place] [address] 76205 Erythrocyte distribution width (RBC) [Ratio] 13.0 % Normal 11.5-15.0 [facility] Comment on above: Performed By: #### C VINCENZO CAT, 0-3, , 59244-2 ####[facility] ([id number])[address] [place] [address] 95588 Hematocrit (Bld) [Volume fraction] 31.5 % Low 35-47 [facility] Comment on above: Performed By: #### C EMORY CMP, 3, , 17947-8 ####[facility] ([id number])[address] [place] [address] 29646 Hemoglobin (Bld) [Mass/Vol] 10.8 g/dL Low 11.7-15.5 [facility] Comment on above: Performed By: #### Miladys CAT CMP, 3039-12, , 80952-5 ####[facility] ([id number])[address] [place] [address] 74643 Lymphocytes (Bld) [#/Vol] 1.3 10*3/uL Normal 1.0-3.5 [facility] Comment on above: Performed By: #### C EMORY CMP, 3, , 89729-4 ####[facility] ([id number])[address] [place] [address] 03159 Lymphocytes/100 WBC (Bld) 16.5 % Normal [facility] Comment on above: Performed By: #### C EMORY, CMP, 3, , 79437-7 ####[facility] ([id number])[address] [place] [address] 38634 MCH (RBC) [Entitic mass] 32.6 pg Normal 27-34 [facility] Comment on above: Performed By: #### C BCA, CMP, 3040-3, , 70750-7 ####[facility] ([id number])[address] [place] [address] 47366 MCHC (RBC) [Mass/Vol] 34.4 g/dL Normal 32-36 [facility] Comment on above: Performed By: #### C BCA, CMP, 0-3, , 63727-1 ####[facility] ([id number])[address] [place] [address] 48151 MCV (RBC) [Entitic vol] 95 fL Normal 80-100 [facility] Comment on above: Performed By: #### C BCA, CMP, 0-3, , 33930-5 ####[facility] ([id number])[address] [place] [address] 74864 Monocytes (Bld) [#/Vol] 0.6 10*3/uL Normal 0-0.9 [facility] Comment on above: Performed By: #### C BCA, CMP, 0-3, , 43351-9 ####[facility] ([id number])[address] [place] [address] 86836 Monocytes/100 WBC (Bld) 8.0 % Normal [facility] Comment on above: Performed By: #### C BCA, CMP, 0-3, , 46314-5 ####[facility] ([id number])[address] [place] [address] 16910 Neutrophils/100 WBC (Bld) 72.4 % Normal [facility] Comment on above: Performed By: #### C BCA, CMP, 0-3, , 74004-4 ####[facility] ([id number])[address] [place] [address] 67682 Platelet mean volume (Bld) [Entitic vol] 6.7 fL Low 7-12 [facility] Comment on above: Performed By: #### C BCA, CMP, 3040-3, 46016-0, 18038-5 ####[facility] ([id number])[address] [place] [address] 16572 Platelets (Bld) [#/Vol] 188 10*3/uL Normal 150-450 [facility] Comment on above: Performed By: #### C BCA, CMP, 3039-3, , 18837-0 ####[facility] ([id number])[address] [place] [address] 49437 RBC COUNT 3.33 X10E12/L Low 3.80-5.20 [facility] Comment on above: Performed By: #### C BCA, CMP, 3, , 11883-3 ####[facility] ([id number])[address] [place] [address] 79223 WBC (Bld) [#/Vol] 8.0 10*3/uL Normal 4.0-11.0 [facility] Comment on above: Performed By: #### C BCA, CMP, 0-3, , 95335-0 ####[facility] ([id number])[address] [place] [address] 45967 COMPREHENSIVE METABOLIC PANE Augustin 08-26-2024 Albumin [Mass/Vol] 2.9 g/dL Low 3.2-5.3 [facility] Comment on above: Performed By: #### C BCA, BMP, 31019-7, 28851-6, 3040-3 #### [facility] ([id number]) [address] [place] [address] 80472 ALP [Catalytic activity/Vol] 34 U/L Low 39-130 [facility] Comment on above: Performed By: #### C BCA, BMP, 12301-0, 09549-1, 3040-3 #### [facility] ([id number]) [address] [place] [address] 08646 ALT [Catalytic activity/Vol] 45 U/L High 0-31 [facility] Comment on above: Performed By: #### C BCA, BMP, 06757-3, 43292-5, 3040-3 #### [facility] ([id number]) [address] [place] [address] 63868 Anion gap [Moles/Vol] 5 mmol/L Normal 5-15 [facility] Comment on above: Performed By: #### C BCA, BMP, 46263-4, 89163-3, 3040-3 #### [facility] ([id number]) [address] [place] [address] 52237 AST [Catalytic activity/Vol] 44 U/L High 0-41 [facility] Comment on above: Performed By: #### C BCA, BMP, 81052-7, 65384-8, 3040-3 #### [facility] ([id number]) [address] [place] [address] 09740 Bilirubin [Mass/Vol] 0.4 mg/dL Normal 0.3-1.2 [facility] Comment on above: Performed By: #### C BCA, BMP, 60863-7, 65464-1, 3040-3 #### [facility] ([id number]) [address] [place] [address] 88118 Calcium [Mass/Vol] 8.4 mg/dL Low 8.5-10.5 [facility] Comment on above: Performed By: #### C BCA, BMP, 97950-7, 55856-9, 3040-3 #### [facility] ([id number]) [address] [place] [address] 10050 Chloride [Moles/Vol] 105 mmol/L Normal 98-109 [facility] Comment on above: Performed By: #### C BCA, BMP, 74548-3, 07457-2, 3040-3 #### [facility] ([id number]) [address] [place] [address] 59545 CO2 [Moles/Vol] 23 mmol/L Normal 22-32 [facility] Comment on above: Performed By: #### C BCA, BMP, 72534-5, 63887-3, 3040-3 #### [facility] ([id number]) [address] [place] [address] 00319 Creatinine [Mass/Vol] 0.68 mg/dL Normal 0.40-1.00 [facility] Comment on above: Result Comment: METH OD TRACEABLE TO IDMS STANDARD Performed By: #### C BCA, BMP, 78333-0, 09404-2, 3040-3 #### [facility] ([id number]) [address] [place] [address] 78235 eGFR (CKD-EPI) NON-RACE DEPENDENT >90 Normal >59 [facility] Comment on above: Result Comment: Reported eGFR is based on the CKD-EPI 2020 equation that does not use a race coefficient. Performed By: #### C BCA, BMP, 73026-9, 36463-5, 3040-3 #### [facility] ([id number]) [address] [place] [address] 13100 Glucose [Mass/Vol] 80 mg/dL Normal 65-99 [facility] Comment on above: Performed By: #### C BCA, BMP, 51860-0, 87771-5, 3040-3 #### [facility] ([id number]) [address] [place] [address] 30976 Potassium [Moles/Vol] 3.9 mmol/L Normal 3.5-5.0 [facility] Comment on above: Performed By: #### C BCA, BMP, 45167-7, 55506-4, 3040-3 #### [facility] ([id number]) [address] [place] [address] 35832 Protein [Mass/Vol] 5.8 g/dL Low 6.0-8.0 [facility] Comment on above: Performed By: #### C BCA, BMP, 83819-9, 22109-9, 3040-3 #### [facility] ([id number]) [address] [place] [address] 62119 Sodium [Moles/Vol] 133 mmol/L Low 134-146 [facility] Comment on above: Performed By: #### C BCA, BMP, 30886-2, 55358-4, 3040-3 #### [facility] ([id number]) [address] [place] [address] 74495 Urea nitrogen [Mass/Vol] 15 mg/dL Normal 5-23 [facility] Comment on above: Performed By: #### C BCA, BMP, 43752-4, 53137-0, 3040-3 #### [facility] ([id number]) [address] [place] [address] 56641 LIPASEon 08-26-2024 Lipase [Catalytic activity/Vol] 36 U/L Normal 17-40 [facility] Comment on above: Performed By: #### C EMORY, BMP, 94364-9, 08897-7, 3040-3 #### [facility] ([id number]) [address] [place] [address] 19763 MAGNESIUMon 08-26-2024 Magnesium [Mass/Vol] 1.8 mg/dL Normal 1.8-2.6 [facility] Comment on above: Performed By: #### C BCA, BMP, 61655-6, 49284-5, 3040-3 #### [facility] ([id number]) [address] [place] [address] 39315 Troponin I.cardiac High sens itivity method [Mass/Vol]on 08-26-2024 TROPONIN I, HIGH SENSITIVITY <2 Normal <16 [facility] Comment on above: Performed By: #### C EMORY, BMP, 32781-8, 93068-8, 3040-3 #### [facility] ([id number]) [address] [facility], [place] [address] THYROID PROFILEon 08-15-2024 Free T4 [Mass/Vol] 0.89 ng/dL Normal 0.61-1.60 [facility] Comment on above: Performed By: #### T HYR ####[facility] ([id number])[address] [facility], [address], [place] [address] TSH 3.03 uIU/mL Normal 0.49-4.67 [facility] Comment on above: Performed By: #### T HYR ####[facility] ([id number])[address], [address], [place] [address] URETHRITIS/DISCHARGE PLUS VA GINITIS (HTRX)on 08-04-2024 ATOPOBIUM VAGINAE 0.000 [facility] ATOPOBIUM VAGINAE Not detected [facility] BVAB 2,3 (BACTERIAL VAGINOSIS ASSOCIATED BACTERIA 2, 3); MOBILUNCUS SPP 0.000 [facility] BVAB 2,3 (BACTERIAL VAGINOSIS ASSOCIATED BACTERIA 2, 3); MOBILUNCUS SPP Not detected [facility] RAZIA ALBICANS, PARAPSILOSIS, TROPICALIS 0.000 [facility] RAZIA ALBICANS, PARAPSILOSIS, TROPICALIS Not detected [facility] RAZIA GLABRATA 0.000 [facility] RAZIA GLABRATA Not detected [facility] RAZIA KRUSEI 0.000 [facility] RAZIA KRUSEI Not detected [facility] CHLAMYDIA TRACHOMATIS 0.000 [facility] CHLAMYDIA TRACHOMATIS Not detected [facility] GARDNERELLA VAGINALIS 0.000 [facility] GARDNERELLA VAGINALIS Not detected [facility] MEGASPHAERA (TYPES 1, 2) 0.000 [facility] MEGASPHAERA (TYPES 1, 2) Not detected [facility] MYCOPLASMA GENITALIUM 0.000 [facility] MYCOPLASMA GENITALIUM Not detected [facility] NEISSERIA GONORRHOEAE 0.000 [facility] NEISSERIA GONORRHOEAE Not detected N [facility] TRICHOMONAS VAGINALIS 0.000 [facility] TRICHOMONAS VAGINALIS Not detected N [facility] Urinalysis macro (dipstick) panel (U)on 08-03-2024 Bilirubin, UA Negative Negative - 4(70) +++ mg/dL [facility] Blood, UA Negative Negative - 50 Nathanael/mcL [facility] Clarity, UA Clear [facility] Color, UA Yellow [facility] Glucose, UA Negative Negative - 1999(110) ++++ mg/dL [facility] Interpretation and review of laboratory results Normal [facility] Ketones, UA Negative Negative - 160(16) ++++ mg/dL [facility] Leukocytes, UA Negative Negative - 500+++ Annie/mcL [facility] Nitrite, UA Negative Negative - Positive [facility] pH, UA 7.0 5 - 9 [facility] Protein, UA Negative Negative - 1999(20) ++++ mg/dL [facility] Spec Grav, UA 1.020 1 - 1.03 [facility] Urobilinogen, UA 1.0 0.2 - 12 mg/dL [facility] THYROID PROFILEon 07-18-2024 Free T4 [Mass/Vol] 0.80 ng/dL Normal 0.61-1.60 [facility] Comment on above: Performed By: #### T HYR ####[facility] ([id number])[address], [address] [place] [address] 78782 TSH 3.22 uIU/mL Normal 0.49-4.67 [facility] Comment on above: Performed By: #### T HYR ####[facility] ([id number])[address], [address] [place] [address] 09161 TSH Qnon 06-20-2024 TSH 2.32 uIU/mL Normal 0.49-4.67 [facility] Comment on above: Performed By: #### 3 016-3 ####[facility] ([id number])[address], [address] [place] [address] 10489 CBC AND AUTO DIFFon 06-06-20 ABSOLUTE BASOPHIL 0.0 X10E9/L Normal 0.0-0.2 [facility] Comment on above: Performed By: #### C VINCENZO CAT, ####[facility] ([id number])[address] [place] [address] 15539 ABSOLUTE NEUTROPHIL 4.8 X10E9/L Normal 1.5-6.6 [facility] Comment on above: Performed By: #### C VINCENZO CAT, ####[facility] ([id number])[address] [place] [address] 11718 Basophils/100 WBC (Bld) 0.3 % Normal [facility] Comment on above: Performed By: #### C VINCENZO CAT, ####[facility] ([id number])[address] [place] [address] 45579 Eosinophils (Bld) [#/Vol] 0.4 10*3/uL Normal 0.0-0.4 [facility] Comment on above: Performed By: #### C VINCENZO CAT, ####[facility] ([id number])[address] [place] [address] 43049 Eosinophils/100 WBC (Bld) 5.5 % Normal [facility] Comment on above: Performed By: #### C VINCENZO CAT, ####[facility] ([id number])[address] [place] [address] 80888 Erythrocyte distribution width (RBC) [Ratio] 13.1 % Normal 11.5-15.0 [facility] Comment on above: Performed By: #### C VINCENZO CAT, ####[facility] ([id number])[address] [place] [address] 52880 Hematocrit (Bld) [Volume fraction] 32.4 % Low 35-47 [facility] Comment on above: Performed By: #### C EMORY CMP, ####[facility] ([id number])[address] [place] [address] 40516 Hemoglobin (Bld) [Mass/Vol] 11.2 g/dL Low 11.7-15.5 [facility] Comment on above: Performed By: #### C EMORY, CMP, ####[facility] ([id number])[address] [place] [address] 90334 Lymphocytes (Bld) [#/Vol] 1.7 10*3/uL Normal 1.0-3.5 [facility] Comment on above: Performed By: #### Miladys CAT CMP, ####[facility] ([id number])[address] [place] [address] 94924 Lymphocytes/100 WBC (Bld) 21.9 % Normal [facility] Comment on above: Performed By: #### Miladys CAT CMP, ####[facility] ([id number])[address] [place] [address] 42429 MCH (RBC) [Entitic mass] 31.7 pg Normal 27-34 [facility] Comment on above: Performed By: #### C EMORY CMP, ####[facility] ([id number])[address] [place] [address] 67185 MCHC (RBC) [Mass/Vol] 34.5 g/dL Normal 32-36 [facility] Comment on above: Performed By: #### Miladys CAT, CMP, ####[facility] ([id number])[address] [place] [address] 48705 MCV (RBC) [Entitic vol] 92 fL Normal 80-100 [facility] Comment on above: Performed By: #### C EMORY, CMP, ####[facility] ([id number])[address] [place] [address] [place] [address] Monocytes (Bld) [#/Vol] 0.8 10*3/uL Normal 0-0.9 [facility] Comment on above: Performed By: #### Miladys CAT CMP, ####[facility] ([id number])[address] [place] [address] 61174 Monocytes/100 WBC (Bld) 10.4 % Normal [facility] Comment on above: Performed By: #### Miladys CAT CMP, ####[facility] ([id number])[address] [place] [address] 22698 Neutrophils/100 WBC (Bld) 61.9 % Normal [facility] Comment on above: Performed By: #### Miladys CAT CMP, ####[facility] ([id number])[address] [place] [address] [place] [id number] Platelet mean volume (Bld) [Entitic vol] 6.9 fL Low 7-12 [facility] Comment on above: Performed By: #### Miladys CAT CMP, ####[facility] ([id number])[address] [place] [id number] Platelets (Bld) [#/Vol] 172 10*3/uL Normal 150-450 [facility] Comment on above: Performed By: #### Miladys CAT CMP, ####[facility] ([id number])[address] [place] [address] [place] [address] RBC COUNT 3.54 X10E12/L Low 3.80-5.20 [facility] Comment on above: Performed By: #### Miladys CAT CMP, ####[facility] ([id number])[address] [place] [id number] WBC (Bld) [#/Vol] 7.7 10*3/uL Normal 4.0-11.0 [facility] Comment on above: Performed By: #### C EMORY CMP, ####[facility] ([id number])[address] [place] [address] [place] [address] COMPREHENSIVE METABOLIC PANE Augustin 06-06-2024 Albumin [Mass/Vol] 3.2 g/dL Normal 3.2-5.3 [facility] Comment on above: Performed By: #### C BCA, CMP, ####[facility] ([id number])[address] [place] [address] 85275 ALP [Catalytic activity/Vol] 38 U/L Low 39-130 [facility] Comment on above: Performed By: #### C EMORY CMP, ####[facility] ([id number])[address] [place] [address] 87161 ALT [Catalytic activity/Vol] 54 U/L High 0-31 [facility] Comment on above: Performed By: #### C EMORY, CMP, ####[facility] ([id number])[address] [place] [address] [place] [address] Anion gap [Moles/Vol] 1 mmol/L Low 5-15 [facility] Comment on above: Performed By: #### C EMORY CMP, ####[facility] ([id number])[address] [place] [address] 24229 AST [Catalytic activity/Vol] 35 U/L Normal 0-41 [facility] Comment on above: Performed By: #### C BCA, CMP, ####[facility] ([id number])[address] [place] [address]77 Bilirubin [Mass/Vol] 0.4 mg/dL Normal 0.3-1.2 [facility] Comment on above: Performed By: #### C BCA, CMP, ####[facility] ([id number])[address] [place] [address]5936 Calcium [Mass/Vol] 8.3 mg/dL Low 8.5-10.5 [facility] Comment on above: Performed By: #### C VINCENZO CAT, ####[facility] ([id number])[address] [place] [address] Chloride [Moles/Vol] 103 mmol/L Normal 98-109 [facility] Comment on above: Performed By: #### C VINCENZO CAT, ####[facility] ([id number])[address] [place] [address] 02774 CO2 [Moles/Vol] 26 mmol/L Normal 22-32 [facility] Comment on above: Performed By: #### C VINCENZO CAT, ####[facility] ([id number])[address] [place] [address] 38450 Creatinine [Mass/Vol] 0.64 mg/dL Normal 0.40-1.00 [facility] Comment on above: Result Comment: METH OD TRACEABLE TO IDMS STANDARD Performed By: #### C VINCENZO CAT, ####[facility] ([id number])[address] [place] [address] 15001 eGFR (CKD-EPI) NON-RACE DEPENDENT >90 Normal >59 [facility] Comment on above: Result Comment: Reported eGFR is based on the CKD-EPI 2020 equation that does not use a race coefficient. Performed By: #### C VINCENZO CAT, ####[facility] ([id number])[address] [place] [address] 19259 Glucose [Mass/Vol] 79 mg/dL Normal 65-99 [facility] Comment on above: Performed By: #### C VINCENZO CAT, ####[facility] ([id number])[address] [place] [address] 32152 Potassium [Moles/Vol] 3.7 mmol/L Normal 3.5-5.0 [facility] Comment on above: Performed By: #### C EMORY, CMP, ####[facility] ([id number])[address] [place] [address] 18278 Protein [Mass/Vol] 6.1 g/dL Normal 6.0-8.0 [facility] Comment on above: Performed By: #### C EMORY, CMP, ####[facility] ([id number])[address] [place] [address] 51047 Sodium [Moles/Vol] 130 mmol/L Low 134-146 [facility] Comment on above: Performed By: #### C EMORY, [facility], ####[facility] ([id number])[address] [place] [address] 05783 Urea nitrogen [Mass/Vol] 15 mg/dL Normal 5-23 [facility] Comment on above: Performed By: #### C EMORY, CMP, ####[facility] ([id number])[address] [place] [address] 50465 HCG.beta subunit IA 3rd IS Q non 06-06-2024 HCG.beta subunit Qn 228667 m[IU]/mL Normal [facility] Comment on above: Result Comment: NEW REFERENCE [...] neoplasms. Performed By: #### C BCA, CMP, 07339-4 ####[facility] ([id number])[address] [place] [address] 65168 URN MACROSCOPIC NURon 2023 BILIRUBIN CHLOÉ Negative Normal NEG [facility] Comment on above: Performed By: #### N UM ####[facility] ([id number])[address] [place] [address] 09430 BLOOD/HGB CHLOÉ Trace Abnormal NEG [facility] Comment on above: Performed By: #### N UM ####[facility] ([id number])[address] [place] [address] 25581 GLUCOSE CHLOÉ Negative Normal NEG [facility] Comment on above: Performed By: #### N UM ####[facility] ([id number])[address] [place] [address] 12566 KETONES CHLOÉ Negative Normal NEG [facility] Comment on above: Performed By: #### N UM ####[facility] ([id number])[address] [place] [address] 10360 LEUKOCYTE ESTERASE CHLOÉ Negative Normal NEG [facility] Comment on above: Performed By: #### N UM ####[facility] ([id number])[address] [place] [address] 56773 NITRITE CHLOÉ Negative Normal NEG [facility] Comment on above: Performed By: #### N UM ####[facility] ([id number])[address] [place] [address] 52923 PH CHLOÉ 5.0 Normal 5.0-8.5 [facility] Comment on above: Performed By: #### N UM ####[facility] ([id number])[address] [place] [address], [place] [address] PROTEIN CHLOÉ Negative Normal NEG [facility] Comment on above: Performed By: #### N UM ####[facility] ([id number])[address] [place] [address], [place] [address] SPECIFIC GRAVITY CHLOÉ >=1.030 Normal 1.003-1.035 [facility] Comment on above: Performed By: #### N UM ####[facility] ([id number])[address] [place] [address] 69919 UROBILINOGEN CHLOÉ 0.2 eu/dL Normal <1.1 [facility] Comment on above: Performed By: #### N UM ####[facility] ([id number])[address] [place] [address], [place] [address] HCG ( test) Ql (U)o n 05-27-2024 Beta HCG ( test) Ql (U) Positive Abnormal NEG [facility] Comment on above: Performed By: #### 2 106-3 ####[facility] ([id number])[address] [place] [address], [place] [address] URN MACROSCOPIC NURon 2023 BILIRUBIN CHLOÉ Negative Normal NEG [facility] Comment on above: Performed By: #### N UM ####[facility] ([id number])[address] [place] [address], [place] [address] BLOOD/HGB CHLOÉ Small Abnormal NEG [facility] Comment on above: Performed By: #### N UM ####[facility] ([id number])[address] [place] [address], [place] [address] GLUCOSE CHLOÉ Negative Normal NEG [facility] Comment on above: Performed By: #### N UM ####[facility] ([id number])[address] [place] [address], [place] [address] KETONES CHLOÉ Negative Normal NEG [facility] Comment on above: Performed By: #### N UM ####[facility] ([id number])[address] [place] [address] [place] [address] LEUKOCYTE ESTERASE CHLOÉ Negative Normal NEG [facility] Comment on above: Performed By: #### N UM ####[facility] ([id number])[address] [place] [address] [place] [address] NITRITE CHLOÉ Negative Normal NEG [facility] Comment on above: Performed By: #### N UM ####[facility] ([id number])[address] [place] [address] 78071 PH CHLOÉ 5.5 Normal 5.0-8.5 [facility] Comment on above: Performed By: #### N UM ####[facility] ([id number])[address] [place] [address] 14738 PROTEIN CHLOÉ Negative Normal NEG [facility] Comment on above: Performed By: #### N UM ####[facility] ([id number])[address] [place] [address], [place] [address] SPECIFIC GRAVITY CHLOÉ >=1.030 Normal 1.003-1.035 [facility] Comment on above: Performed By: #### N UM ####[facility] ([id number])[address] [place] [address] [place] [address] UROBILINOGEN CHLOÉ 1.0 eu/dL Normal <1.1 [facility] Comment on above: Performed By: #### N UM ####[facility] ([id number])[address] [place] [address] [place] [address] HCG.beta subunit IA 3rd IS Q non 05-14-2024 [place] [address] m[IU]/mL Normal P [facility] Comment on above: Result Comment: NEW [...] nontrophoblastic neoplasms. Performed By: #### Miladys DIALLO, 89648-4, PEARL SHEEHAN #### [facility] ([id number]) [address] [place] [address] [address] [place] [address] HCG.beta subunit IA 3rd IS Q non 05-11-2024 [place] [address] m[IU]/mL Normal [facility] Comment on above: Result Comment: NEW [...] nontrophoblastic neoplasms. Performed By: #### Miladys DIALLO, 02475-1, AGUILA, PEARL #### [facility] ([id number]) [address] [place] [address], [address] [place] [address] TSH Qnon 05-11-2024 TSH 1.06 uIU/mL Normal 0.49-4.67 [facility] Comment on above: Performed By: #### Miladys DIALLO, 44858-4, PEARL SHEEHAN #### [facility] ([id number]) [address] [place] [address], [address] [place] [address] HCG.beta subunit IA 3rd IS Q non 05-08-2024 HCG.beta subunit Qn 6446 m[IU]/mL Normal Pr [facility] Comment on above: Result Comment: NEW [...] nontrophoblastic neoplasms. Performed By: #### Miladys DIALLO, 90474-0, AGUILA Keenan #### [facility] ([id number]) [address] [place] [address], [address] [place] [address] HCG.beta subunit IA 3rd IS Q non 05-06-2024 HCG.beta subunit Qn 3140 m[IU]/mL Normal Pr [facility] Comment on above: Result Comment: NEW [...] nontrophoblastic neoplasms. Performed By: #### Miladys DIALLO, 22231-5, PEARL SHEEHAN #### [facility] ([id number]) [address] [place] [address], [address] [place] [address] HCG.beta subunit IA 3rd IS Q non 05-01-2024 HCG.beta subunit Qn 560 m[IU]/mL Normal [facility] Comment on above: Result Comment: NEW REFERENCE [...] nontrophoblastic neoplasms. Performed By: #### Miladys DIALLO, 14935-1, AGUILA, Keenan #### [facility] ([id number]) [address] [place] [address], [address] [place] [address] HCG.beta subunit IA 3rd IS Q non 04-28-2024 HCG.beta subunit Qn 159 m[IU]/mL Normal [facility] Comment on above: Result Comment: NEW REFERENCE [...] or nontrophoblastic neoplasms. Performed By: #### Miladys DIALLO 66518-8, THYR, AHP #### [facility] ([id number]) [address], [address] [place] [address] FREE T3on 02-14-2024 Free T3 [Mass/Vol] 3.94 pg/mL High 2.50-3.90 [facility] Comment on above: Performed By: #### Miladys DIALLO 51906-2, THYR, AHP #### [facility] ([id number]) [address], [address] [place] [address] THYROID PROFILEon 02-14-2024 Free T4 [Mass/Vol] 0.91 ng/dL Normal 0.61-1.60 [facility] Comment on above: Performed By: #### Miladys DIALLO, 21951-9, THYR, AHP #### [facility] ([id number]) [address], [address] [place] [address] TSH 0.52 uIU/mL Normal 0.49-4.67 [facility] Comment on above: Performed By: #### Miladys DIALLO, 52325-0, THYR, AHP #### [facility] ([id number]) [address], [address] [place] [address] THYROPEROXIDASE ABon 024 TPO Ab Qn 403 [IU]/mL High <10 [facility] Comment on above: Performed By: #### Miladys DIALLO 65473-1, PEARL SHEEHAN #### [facility] ([id number]) [address], [address] [place] [address] Thyroid stimulating immunogl obulins Qn (S)on 02-14-2024 TSI See Below Normal [facility] Comment on above: Result Comment: [...] Clinical correlation is required. Test Performed By: [facility] [address] [place] [address] Anesthesiology Tech: Eloy Dangelo III, M.D. CLIA #[id number] Performed By: #### Miladys DIALLO 00472-6, PEARL SHEEHAN #### [facility] ([id number]) [address], [address] [place] [address] ACUTE HEPATITIS PANELon 12-27 ANTI HCV W/PCR REFLX Non-Reactive Normal NRCT Pr [facility] Comment on above: Result Comment: If recent infection suspected, recommend repeat testing (>2 months). Cecpha-tr-ezezdu ratio is <0.80. Performed By: #### Miladys DIALLO, 63019-2, AGUILA, PEARL #### [facility] ([id number]) [address], [address] [place] [address] HEPATITIS A IGM Non-Reactive Normal NRCT [facility] Comment on above: Performed By: #### C YOEL, 08487-3, THYR, AHP #### [facility] ([id number]) [address], [address] [place] [address] HEPATITIS B CORE IGM Negative Normal NEG [facility] Comment on above: Performed By: #### C YOEL, 51698-6, THYR, AHP #### [facility] ([id number]) [address], [address] [place] [address] HEPATITIS B SURF AG Negative Normal NEG [facility] Comment on above: Performed By: #### C YOEL, 01525-9, THYR, AHP #### [facility] ([id number]) [address], [address] [place] [address] COMPREHENSIVE METABOLIC PANE Augustin 2024 Albumin [Mass/Vol] 3.8 g/dL Normal 3.2-5.3 [facility] Comment on above: Performed By: #### C YOEL, 51284-1, THYR, AHP #### [facility] ([id number]) [address], [address] [place] [address] ALP [Catalytic activity/Vol] 48 U/L Normal 39-130 [facility] Comment on above: Performed By: #### C YOEL, 14291-7, THYR, AHP #### [facility] ([id number]) [address], [address] [place] [address] ALT [Catalytic activity/Vol] 38 U/L High 0-31 [facility] Comment on above: Performed By: #### C YOEL, 58576-1, THYR, AHP #### [facility] ([id number]) [address], [address] [place] [address] Anion gap [Moles/Vol] 9 mmol/L Normal 5-15 [facility] Comment on above: Performed By: #### C YOEL, 94874-2, THYR, AHP #### [facility] ([id number]) [address], [address] [place] [address] AST [Catalytic activity/Vol] 32 U/L Normal 0-41 [facility] Comment on above: Performed By: #### C YOEL, 01456-1, THYR, AHP #### [facility] ([id number]) [address], [address] [place] [address] Bilirubin [Mass/Vol] 0.9 mg/dL Normal 0.3-1.2 [facility] Comment on above: Performed By: #### C YOEL, 84121-2, THYR, AHP #### [facility] ([id number]) [address], [address] [place] [address] Calcium [Mass/Vol] 8.8 mg/dL Normal 8.5-10.5 [facility] Comment on above: Performed By: #### C YOEL, 11774-3, THYR, AHP #### [facility] ([id number]) [address], [address] [place] [address] Chloride [Moles/Vol] 104 mmol/L Normal 98-109 [facility] Comment on above: Performed By: #### C YOEL, 48525-2, THYR, AHP #### [facility] ([id number]) [address], [address] [place] [address] CO2 [Moles/Vol] 26 mmol/L Normal 22-32 [facility] Comment on above: Performed By: #### C YOEL, 78644-3, THYR, AHP #### [facility] ([id number]) [address], [address] [place] [address] Creatinine [Mass/Vol] 0.64 mg/dL Normal 0.40-1.00 [facility] Comment on above: Result Comment: METH OD TRACEABLE TO IDMS STANDARD Performed By: #### C YOEL 29792-4, THYR, AHP #### [facility] ([id number]) [address], [address] [place] [address] eGFR (CKD-EPI) NON-RACE DEPENDENT >90 Normal >59 [facility] Comment on above: Result Comment: Reported eGFR is based on the CKD-EPI 2020 equation that does not use a race coefficient. Performed By: #### C YOEL 76338-8, THYR, AHP #### [facility] ([id number]) [address], [address] [place] [address] Glucose [Mass/Vol] 80 mg/dL Normal 65-99 [facility] Comment on above: Performed By: #### C YOEL 68134-7, THYR, AHP #### [facility] ([id number]) [address], [address] [place] [address] Potassium [Moles/Vol] 3.7 mmol/L Normal 3.5-5.0 [facility] Comment on above: Performed By: #### C YOEL 43919-8, THYR, AHP #### [facility] ([id number]) [address], [address] [place] [address] Protein [Mass/Vol] 6.8 g/dL Normal 6.0-8.0 [facility] Comment on above: Performed By: #### C YOEL 84649-0, THYR, AHP #### [facility] ([id number]) [address], [address] [place] [address] Sodium [Moles/Vol] 139 mmol/L Normal 134-146 [facility] Comment on above: Performed By: #### C YOEL 72474-7, THYR, AHP #### [facility] ([id number]) [address], [address] [place] [address] Urea nitrogen [Mass/Vol] 11 mg/dL Normal 5-23 [facility] Comment on above: Performed By: #### Miladys DIALLO, 91560-4, PEARL SHEEHAN #### [facility] ([id number]) [address], [address] [place] [address] Lipid 1996 panelon 4 Cholesterol [Mass/Vol] 94 mg/dL Low 150-200 [facility] Comment on above: Performed By: #### Miladys DIALLO, 34933-8, PEARL SHEEHAN #### [facility] ([id number]) [address], [address] [place] [address] Cholesterol in HDL [Mass/Vol] 43 mg/dL Normal >39 [facility] Comment on above: Result Comment: HDL <40 mg/dL - High Risk HDL > or = 40mg/dL- Desirable HDL >60 mg/dL - Negative Risk Performed By: #### Miladys DIALLO, 44276-7, PEARL SHEEHAN #### [facility] ([id number]) [address], [address] [place] [address] Cholesterol in LDL [Mass/Vol] 39 mg/dL Normal <130 [facility] Comment on above: Result Comment: LDL <100 mg/dL - Desirable LDL >160 mg/dL - High Risk Performed By: #### Miladys DIALLO, 07995-8, PEARL SHEEHAN #### [facility] ([id number]) [address], [address] [place] [address] Cholesterol in VLDL [Mass/Vol] 12 mg/dL Normal 0-30 [facility] Comment on above: Performed By: #### Miladys DIALLO, 98368-5, PEARL SHEEHAN #### [facility] ([id number]) [address], [address] [place] [address] CHOLESTEROL:HDL 2.2 Normal 1.0-5.0 [facility] Comment on above: Performed By: #### Miladys DIALLO, 14858-4, AGUILA, PEARL #### [facility] ([id number]) [address], [address] [place] [address] Triglyceride [Mass/Vol] 58 mg/dL Normal 27-150 [facility] Comment on above: Performed By: #### Miladys DIALLO, 65825-4, PEARL SHEEHAN #### [facility] ([id number]) [address], [address] [place] [address] Mullerian inhibiting substan ce [Mass/Vol]on 2024 ANTI MULLERIAN HORM See Below Normal [facility] Comment on above: Result Comment: NOTE TEST RESULT FLAG UNIT REF.RANGE ------ Anti Mclean Hormone 0.54 L ng/mL 0.58-8.13 Test Performed By: [facility] [address] [place] [address] Anesthesiology Tech: Eloy Dangelo III, M.D. [facility] #[id number] Performed By: #### Miladys DIALLO, 78866-0, AGUILA, PEARL #### [facility] ([id number]) [address], [address] [place] [address] Selenium [Mass/Vol]on 2023 SELENIUM, SER/PLASMA 108.6 ug/L Normal 23.0-190.0 [facility] Comment on above: Result Comment: NOTE INTERPRETIVE [...] developed and its performance characteristics determined by [facility]. It has not been cleared or approved by the [place] Food and Drug Administration. This test was performed in a CLIA certified laboratory and is intended for clinical purposes. Performed By: [facility] [address] [place] [address] Anesthesiology Tech: Deangelo Rosario MD, PhD CLIA Number: [id number] Performed By: #### C YOEL, 80288-8, THYR, AHP #### [facility] ([id number]) [address] [address] THYROID PROFILEon 2024 Free T4 [Mass/Vol] 0.67 ng/dL Normal 0.61-1.60 [facility] Comment on above: Performed By: #### Miladys DIALLO 24383-5, THYbEer, AHP #### [facility] ([id number]) [address] [address] [place] [address] TSH 2.55 uIU/mL Normal 0.49-4.67 [facility] Comment on above: Performed By: #### C YOEL, 75264-6, THYR, AHP #### [facility] ([id number]) [address], [address] [address] VITAMIN E, SER/PLon 01-24-20 VIT E(ALPHA-TOCOPHEROL) 7.6 mg/L Normal 5.5-18.0 [facility] Comment on above: Result Comment: NOTE This test was developed and its performance characteristics determined by [facility]. It has not been cleared or approved by the [place] Food and Drug Administration. This test was performed in a CLIA certified laboratory and is intended for clinical purposes. Performed By: #### C YOEL 33125-6, PEARL SHEEHAN #### [facility] ([id number]) [address], [address] [place] [address] VIT E(GAMMA-TOCOPHEROL) 0.3 mg/L Normal 0.0-6.0 [facility] Comment on above: Result Comment: NOTE Performed By: [facility] [address] [place] [address] Anesthesiology Tech: Deangelo Rosario MD, PhD CLIA Number: [id number] Performed By: #### C YOEL 82122-2, PEARL SHEEHAN #### [facility] ([id number]) [address], [address] [place] [address] LIVER PANELon 01-18-2024 Albumin [Mass/Vol] 3.8 g/dL Normal 3.2-5.3 [facility] Comment on above: Performed By: #### [place] MP-1, AGUILA, PEARL #### [facility] ([id number]) [address], [address] [place] [address] ALP [Catalytic activity/Vol] 44 U/L Normal 39-130 [facility] Comment on above: Performed By: #### C Bisi DIALLO31-1, AGUILA, AHP #### [facility] ([id number]) [address], [address] [place] [address] ALT [Catalytic activity/Vol] 33 U/L High 0-31 [facility] Comment on above: Performed By: #### Miladys DIALLO [id number], THYR, AHP #### [facility] ([id number]) [address], [address] [place] [address] AST [Catalytic activity/Vol] 30 U/L Normal 0-41 [facility] Comment on above: Performed By: #### Miladys DIALLO, 22823-3, THYR, AHP #### [facility] ([id number]) [address], [address] [place] [address] Bilirubin [Mass/Vol] 0.7 mg/dL Normal 0.3-1.2 [facility] Comment on above: Performed By: #### Miladys DIALLO 19573-9, THYR, AHP #### [facility] ([id number]) [address], [address] [place] [address] Bilirubin.direct [Mass/Vol] 0.2 mg/dL Normal 0.0-0.4 [facility] Comment on above: Performed By: #### Miladys DIALLO, 00363-6, THYR, AHP #### [facility] ([id number]) [address], [address] [place] [address] Protein [Mass/Vol] 6.7 g/dL Normal 6.0-8.0 [facility] Comment on above: Performed By: #### Miladys DIALLO 35762-5, THYR, AHP #### [facility] ([id number]) [address], [address] [place] [address] MAGNESIUMon 01-18-2024 Magnesium [Mass/Vol] 1.7 mg/dL Low 1.8-2.6 [facility] Comment on above: Performed By: #### Miladys DIALLO, 85227-1, THYR, AHP #### [facility] ([id number]) [address], [address] [place] [address] TSH Qnon 01-18-2024 TSH 1.07 uIU/mL Normal 0.49-4.67 [facility] Comment on above: Performed By: #### Miladys DIALLO, 28849-2, THYR, AHP #### [facility] ([id number]) [address], [address] [place] [address] Vitamin D+Metabolites [Mass/ Vol]on 01-18-2024 VITAMIN D 25 HYD TOT 86.7 ng/mL Normal 30-100 [facility] Comment on above: Result Comment: Vitamin D status 25 [place] Vitamin D Deficiency <20 ng/mL Insufficiency 20-29 ng/mL Sufficiency 30-100 ng/mL Toxicity >100 ng/mL NOTE: A pediatric reference range has not been established by the fence builder of this kit. The [place] [employer] recommends a Vitamin D level of = or >20ng/mL in infants and children. Performed By: #### [place], 93007-5, THYR, AHP #### [facility] ([id number]) [address], [address] [place] [address] US THYROIDon 01-06-2024 US THYROID US THYROID [...] Friend MD on 01/06/2024 6:53 AM Normal [facility] FREE T3on 01-03-2024 Free T3 [Mass/Vol] 3.48 pg/mL Normal 2.50-3.90 [facility] Comment on above: Performed By: #### [place], [address]-4, THYEber, P #### [facility] ([id number]) [address] [place] [address], [address] [place] [address] Reference Lab Test IDon 03-0 CELIAC COMP CASCADE SEE COMMENTS 01/10/2024 10:26 PM Normal [facility] Comment on above: Result Comment: NOTE Test [...] instructions. Its performance characteristics were determined by [facility] in a manner consistent with CLIA requirements. This test has not been cleared or approved by the U.S. Food and Drug Administration. CLIA: [id number] CLIA Owner/Photographer: ALAN LOUIS MD,PhD Celiac Disease See Note Interpretation See Comment: Celiac disease probable. Consider biopsy. Test Performed by: [facility] [address] [place] [address] Owner/Photographer: Alan Louis M.D. Ph.D.; CLIA# [id number] Test Performed by: [facility] [address] [place] [address] Owner/Photographer: Alan Louis M.D. Ph.D.; CLIA# [id number] Performed By: #### Miladys DIALLO, 20829-7, THYR, AHP #### [facility] ([id number]) [address] [facility] [address] [place] [address] THYROID PROFILEon 01-03-2024 Free T4 [Mass/Vol] 0.82 ng/dL Normal 0.61-1.60 [facility] Comment on above: Performed By: #### Miladys DIALLO, 26753-9, THYR, AHP #### [facility] ([id number]) [address] [facility] [address] [place] [address] TSH 0.41 uIU/mL Low 0.49-4.67 [facility] Comment on above: Performed By: #### Miladys DIALLO, 25578-5, THYR, AHP #### [facility] ([id number]) [address] [facility] [address] [place] [address] tTG IgA IA Qn (S)on 01-03-20 24 ENDOMYSIAL ABS IGA Negative Normal Negative [facility] Comment on above: Result Comment: NOTE [...] as indicated by the Celiac Disease Comprehensive [place] ([place] Test Unit Code CDCOM). In addition serum IgA endomysial antibody may also be negative in gluten-sensitive patients (with celiac disease, dermatitis herpetiformis or other gluten-sensitive disorders), who adhere to a strict gluten-free diet. ADDITIONAL INFORMATION This test has been modified from the fence builder's instructions. Its performance characteristics were determined by [facility] in a manner consistent with CLIA requirements. This test has not been cleared or approved by the U.S. Food and Drug Administration. Test Performed by: [place] [address] Owner/Photographer: Alan Louis M.D. Ph.D.; CLIA# [id number] Performed By: #### Miladys DIALLO, 93172-1, THYEber, PEARL #### [facility] ([id number]) [address] [facility], [address] [place] [address] FREE T3on 12-21-2023 Free T3 [Mass/Vol] 3.75 pg/mL Normal 2.50-3.90 [facility] Comment on above: Performed By: ###[place], [address]-2, AGUILA, PEARL #### [facility] ([id number]) [address] [facility], [address] [place] [address] Mullerian inhibiting substan ce [Mass/Vol]on 12-21-2023 ANTI MULLERIAN HORM See Below Normal [facility] Comment on above: Result Comment: NOTE TEST RESULT FLAG UNIT REF.RANGE ------ Anti Mclean Hormone 0.37 L ng/mL 0.58-8.13 Test Performed By: [facility] [address] [place] [address] Anesthesiology Tech: Eloy Dangelo III, M.D. CLIA #[id number] Performed By: #### Miladys DIALLO, 89892-5, THYR, AHP #### [facility] ([id number]) [address], [address] [place] [address] THYROID PROFILEon 12-21-2023 Free T4 [Mass/Vol] 0.94 ng/dL Normal 0.61-1.60 [facility] Comment on above: Performed By: #### C YOEL, 58388-5, THYR, AHP #### [facility] ([id number]) [address] [facility] [address] [place] [address] TSH 0.19 uIU/mL Low 0.49-4.67 [facility] Comment on above: Performed By: #### C YOEL, 80426-0, THYR, AHP #### [facility] ([id number]) [address] [address] THYROPEROXIDASE ABon 024 TPO Ab Qn 415 [IU]/mL High <10 [facility] Comment on above: Performed By: #### C YOEL, 83599-9, THYR, AHP #### [facility] ([id number]) [address] [facility] [address] [place] [address] Thyroid stimulating immunogl obulins Qn (S)on 12-21-2023 TSI See Below Normal [facility] Comment on above: Result Comment: [...] Clinical correlation is required. Test Performed By: [facility] [address] [place] [address] Anesthesiology Tech: Eloy Dangelo III, M.D. CLIA #[id number] Performed By: #### Miladys DIALLO, 78902-5, AGUILA, PEARL #### [facility] ([id number]) [address] [facility], [address] [place] [address] Mullerian inhibiting substan ce [Mass/Vol]on 12-13-2023 ANTI MULLERIAN HORM See Below Normal [facility] Comment on above: Result Comment: NOTE TEST RESULT FLAG UNIT REF.RANGE ------ Anti Mclean Hormone 0.31 L ng/mL 0.58-8.13 Test Performed By: [place] [address] Anesthesiology Tech: Eloy Dangelo III, M.D. CLIA #[id number] Performed By: ###[place], [address]-8, AGUILA, PEARL #### [facility] ([id number]) [address] [facility], [address] [place] [address] Progesterone [Mass/Vol]on PROGESTERONE 3.5 ng/mL [facility] Comment on above: Result Comment: FEMALES: 1st Tri: 4.7-50.7 ng/ml 2nd Tri: 19.4-45.3 ng/ml MENSTRUATING FEMALES: Follicular: 0.3-1.5 ng/ml Mid Luteal: 5.2-18.6 ng/ml [place]: <0.1-0.8 ng/ml Performed By: ###[place], [address]-9, THYEber, DEEPAP #### [facility] ([id number]) [address] [facility] [place] [address] US PELVIC WITH TRANSVAGINALo n 12-13-2023 US [...] Nikos Friend MD on 12/13/2023 6:28 PM Normal [facility] Surgical Pathology Reporton 11-27-2023 Surgical Pathology Report (NOTE) Path Number: [id number] -- Diagnosis -- GALLBLADDER, CHOLECYSTECTOMY: -CHRONIC CHOLECYSTITIS [...] lesions or periductal lymph nodes are identified. Transit Bus Operator sections 1c. tm Peggy Naylor/kb2:11/27/2023 Microscopic Description Microscopic examination performed. Processing Lab: [address] [address] Interpretation Performed at [address] [address] SURGICAL PATHOLOGY CONSULTATION Patient Name: PHILLIP AVALOS [facility] Rec: [id number] [facility] ANATOMIC PATHOLOGY [address] [facility] [place], [place] [address] Normal [facility] COMPREHENSIVE METABOLIC PANE [place] 11-16-2023 Albumin [Mass/Vol] 3.7 g/dL Normal 3.2-5.3 [facility] Comment on above: Performed By: #### C YOEL 62320-6, THYR, AHP #### [facility] ([id number]) [address], [address] [place] [address] ALP [Catalytic activity/Vol] 45 U/L Normal 39-130 [facility] Comment on above: Performed By: #### C YOEL, 13908-7, THYR, AHP #### [facility] ([id number]) [address], [address] [place] [address] ALT [Catalytic activity/Vol] 51 U/L High 0-31 [facility] Comment on above: Performed By: #### C YOEL, 40316-8, THYR, AHP #### [facility] ([id number]) [address], [address] [place] [address] Anion gap [Moles/Vol] 8 mmol/L Normal 5-15 [facility] Comment on above: Performed By: #### C YOEL, 10368-6, THYR, AHP #### [facility] ([id number]) [address], [address] [place] [address] AST [Catalytic activity/Vol] 40 U/L Normal 0-41 [facility] Comment on above: Performed By: #### C YOEL, 62066-2, THYR, AHP #### [facility] ([id number]) [address], [address] [place] [address] Bilirubin [Mass/Vol] 0.7 mg/dL Normal 0.3-1.2 [facility] Comment on above: Performed By: #### Miladys DIALLO 86648-8, THYR, AHP #### [facility] ([id number]) [address], [address] [place] [address] Calcium [Mass/Vol] 8.8 mg/dL Normal 8.5-10.5 [facility] Comment on above: Performed By: #### C YOEL, 26388-0, THYR, AHP #### [facility] ([id number]) [address], [address] [place] [address] Chloride [Moles/Vol] 106 mmol/L Normal 98-109 [facility] Comment on above: Performed By: #### C YOEL, 65819-7, THYR, AHP #### [facility] ([id number]) [address], [address] [place] [address] CO2 [Moles/Vol] 27 mmol/L Normal 22-32 [facility] Comment on above: Performed By: #### Miladys DIALLO, 97552-4, THYR, AHP #### [facility] ([id number]) [address], [address] [place] [address] Creatinine [Mass/Vol] 0.60 mg/dL Normal 0.40-1.00 [facility] Comment on above: Result Comment: METH OD TRACEABLE TO IDMS STANDARD Performed By: #### C YOEL, 66374-1, THYR, AHP #### [facility] ([id number]) [address], [address] [place] [address] eGFR (CKD-EPI) NON-RACE DEPENDENT >90 Normal >59 [facility] Comment on above: Result Comment: Reported eGFR is based on the CKD-EPI 2020 equation that does not use a race coefficient. Performed By: #### C YOEL 72018-4, THYR, AHP #### [facility] ([id number]) [address], [address] [place] [address] Glucose [Mass/Vol] 79 mg/dL Normal 65-99 [facility] Comment on above: Performed By: #### C YOEL 73367-8, THYR, AHP #### [facility] ([id number]) [address], [address] [place] [address] Potassium [Moles/Vol] 3.8 mmol/L Normal 3.5-5.0 [facility] Comment on above: Performed By: #### C YOEL 43242-7, THYR, AHP #### [facility] ([id number]) [address], [address] [place] [address] Protein [Mass/Vol] 6.4 g/dL Normal 6.0-8.0 [facility] Comment on above: Performed By: #### Miladys DIALLO, 27130-1, THYR, AHP #### [facility] ([id number]) [address], [address] [place] [address] Sodium [Moles/Vol] 141 mmol/L Normal 134-146 [facility] Comment on above: Performed By: #### C YOEL, 96880-8, THYR, AHP #### [facility] ([id number]) [address], [address] [place] [address] Urea nitrogen [Mass/Vol] 11 mg/dL Normal 5-23 [facility] Comment on above: Performed By: #### C YOLE, 41804-0, THYR, AHP #### [facility] ([id number]) [address], [address] [place] [address] MAGNESIUMon 11-16-2023 Magnesium [Mass/Vol] 1.8 mg/dL Normal 1.8-2.6 [facility] Comment on above: Performed By: #### C YOEL, 91824-9, THYR, AHP #### [facility] ([id number]) [address], [facility] [address] [place] [address] TSH Qnon 11-16-2023 TSH 0.19 uIU/mL Low 0.49-4.67 [facility] Comment on above: Performed By: #### C YOEL, 56424-9, THYR, DEEPAP #### [facility] ([id number]) [address], [facility] [address] [place] [address] Vitamin D+Metabolites [Mass/ Vol]on 11-16-2023 VITAMIN D 25 HYD TOT 65.7 ng/mL Normal 30-100 [facility] Comment on above: Result Comment: Vitamin D status 25 [place] Vitamin D Deficiency <20 ng/mL Insufficiency 20-29 ng/mL Sufficiency 30-100 ng/mL Toxicity >100 ng/mL NOTE: A pediatric reference range has not been established by the fence builder of this kit. The [place] [employer] recommends a Vitamin D level of = or >20ng/mL in infants and children. Performed By: #### C YOEL, 12537-4, THYR, AHP #### [facility] ([id number]) [address], [address] [place] [address] BASIC METABOLIC PANLon 11-02 Anion gap [Moles/Vol] 7 mmol/L Normal 5-15 [facility] Comment on above: Performed By: #### C BCA, BMP, 17692-4, 59578-2, 3040-3 #### [facility] ([id number]) [address] [place] [address] Calcium [Mass/Vol] 8.7 mg/dL Normal 8.5-10.5 [facility] Comment on above: Performed By: #### C BCA, BMP, 68773-5, 29044-2, 3040-3 #### [facility] ([id number]) [address] [place] [address] Chloride [Moles/Vol] 104 mmol/L Normal 98-109 [facility] Comment on above: Performed By: #### C BCA, BMP, 56200-5, 77307-6, 3040-3 #### [facility] ([id number]) [address] [place] [address] CO2 [Moles/Vol] 27 mmol/L Normal 22-32 [facility] Comment on above: Performed By: #### C EMORY, BMP, 11176-6, 51298-2, 3040-3 #### [facility] ([id number]) [address] [place] [address] Creatinine [Mass/Vol] 0.66 mg/dL Normal 0.40-1.00 [facility] Comment on above: Result Comment: METH OD TRACEABLE TO IDMS STANDARD Performed By: #### C EMORY, BMP, 61438-6, 52728-2, 3040-3 #### [facility] ([id number]) [address] [place] [address] eGFR (CKD-EPI) NON-RACE DEPENDENT >90 Normal >59 [facility] Comment on above: Result Comment: Reported eGFR is based on the CKD-EPI 2020 equation that does not use a race coefficient. Performed By: #### C BCA, BMP, 68604-0, 95195-2, 3040-3 #### [facility] ([id number]) [address] [place] [address] Glucose [Mass/Vol] 89 mg/dL Normal 65-99 [facility] Comment on above: Performed By: #### C BCA, BMP, 26171-8, 26649-3, 3040-3 #### [facility] ([id number]) [address] [place] [address] Potassium [Moles/Vol] 3.7 mmol/L Normal 3.5-5.0 [facility] Comment on above: Performed By: #### C BCA, BMP, 64127-2, 47418-1, 3040-3 #### [facility] ([id number]) [address] [place] [address] Sodium [Moles/Vol] 138 mmol/L Normal 134-146 [facility] Comment on above: Performed By: #### C BCA, BMP, 85441-4, 13634-0, 3040-3 #### [facility] ([id number]) [address] [place] [address] Urea nitrogen [Mass/Vol] 16 mg/dL Normal 5-23 [facility] Comment on above: Performed By: #### C BCA, BMP, 78107-7, 62521-6, 3040-3 #### [facility] ([id number]) [address] [place] [address] CBC AND AUTO DIFFon 11-02-19 24 ABSOLUTE BASOPHIL 0.0 X10E9/L Normal 0.0-0.2 [facility] Comment on above: Performed By: #### C BCA, BMP, 61299-2, 32365-6, 3040-3 #### [facility] ([id number]) [address] [place] [address] ABSOLUTE NEUTROPHIL 3.9 X10E9/L Normal 1.5-6.6 [facility] Comment on above: Performed By: #### C BCA, BMP, 72509-9, 12019-1, 3040-3 #### [facility] ([id number]) [address] [place] [address] [place] [address] Basophils/100 WBC (Bld) 0.6 % Normal [facility] Comment on above: Performed By: #### C BCA, BMP, 21593-1, 70921-8, 3040-3 #### [facility] ([id number]) [address] [place] [address] Eosinophils (Bld) [#/Vol] 0.3 10*3/uL Normal 0.0-0.4 [facility] Comment on above: Performed By: #### C BCA, BMP, 27357-5, 13204-9, 3040-3 #### [facility] ([id number]) [address] [place] [address] Eosinophils/100 WBC (Bld) 4.8 % Normal [facility] Comment on above: Performed By: #### Miladys BCA, BMP, 41249-8, 33329-6, 3040-3 #### [facility] ([id number]) [address] [place] [address] Erythrocyte distribution width (RBC) [Ratio] 12.6 % Normal 11.5-15.0 [facility] Comment on above: Performed By: #### C BCA, BMP, 43239-9, 12135-0, 3040-3 #### [facility] ([id number]) [address] [place] [address] Hematocrit (Bld) [Volume fraction] 39.8 % Normal 35-47 [facility] Comment on above: Performed By: #### C BCA, BMP, 03480-3, 67574-7, 3040-3 #### [facility] ([id number]) [address] [place] [address] Hemoglobin (Bld) [Mass/Vol] 13.5 g/dL Normal 11.7-15.5 [facility] Comment on above: Performed By: #### C BCA, BMP, 18864-8, 75448-8, 3040-3 #### [facility] ([id number]) [address] [place] [address] Lymphocytes (Bld) [#/Vol] 2.0 10*3/uL Normal 1.0-3.5 [facility] Comment on above: Performed By: #### Miladys BCA, BMP, 59694-9, 77875-2, 0-3 #### [facility] ([id number]) [address] [place] [address] Lymphocytes/100 WBC (Bld) 29.0 % Normal [facility] Comment on above: Performed By: #### C EMORY, BMP, 02043-0, 69236-1, 3039-3 #### [facility] ([id number]) [address] [place] [address] MCH (RBC) [Entitic mass] 31.0 pg Normal 27-34 [facility] Comment on above: Performed By: #### C EMORY, BMP, 65354-5, 94575-6, 3040-3 #### [facility] ([id number]) [address] [place] [address] MCHC (RBC) [Mass/Vol] 33.9 g/dL Normal 32-36 [facility] Comment on above: Performed By: #### C EMORY, BMP, 36447-2, 19051-0, 304-3 #### [facility] ([id number]) [address] [place] [address] MCV (RBC) [Entitic vol] 91 fL Normal 80-100 [facility] Comment on above: Performed By: #### Miladys BCA, BMP, 53969-4, 43242-6, 3040-3 #### [facility] ([id number]) [address] [place] [address] Monocytes (Bld) [#/Vol] 0.6 10*3/uL Normal 0-0.9 [facility] Comment on above: Performed By: #### C BCA, BMP, 21601-1, 73935-3, 3040-3 #### [facility] ([id number]) [address] [place] [address] Monocytes/100 WBC (Bld) 8.2 % Normal [facility] Comment on above: Performed By: #### Miladys BCA, BMP, 42884-1, 58339-1, 3040-3 #### [facility] ([id number]) [address] [place] [address] Neutrophils/100 WBC (Bld) 57.4 % Normal [facility] Comment on above: Performed By: #### Miladys BCA, BMP, 93986-0, 20338-1, 3040-3 #### [facility] ([id number]) [address] [place] [address] Platelet mean volume (Bld) [Entitic vol] 7.5 fL Normal 7-12 [facility] Comment on above: Performed By: #### Miladys BCA, BMP, 75367-9, 68271-3, 3040-3 #### [facility] ([id number]) [address] [place] [address] Platelets (Bld) [#/Vol] 222 10*3/uL Normal 150-450 [facility] Comment on above: Performed By: #### Miladys BCA, BMP, 25487-4, 76055-0, 3040-3 #### [facility] ([id number]) [address] [place] [address] RBC COUNT 4.36 X10E12/L Normal 3.80-5.20 [facility] Comment on above: Performed By: #### Miladys BCA, BMP, 52509-2, 95607-4, 3040-3 #### [facility] ([id number]) [address] [place] [address] WBC (Bld) [#/Vol] 6.9 10*3/uL Normal 4.0-11.0 [facility] Comment on above: Performed By: #### C SOHA CAT, 04843-2, 30590-9, 3040-3 #### [facility] ([id number]) [address] [place] [address] Fibrin D-dimer DDU (PPP) [Ma ss/Vol]on 11-02-2023 D DIMER <150 Normal <255 [facility] Comment on above: Result Comment: Results <255 ng/mL DDU: The presence of a VTE can safely be excluded with a negative D-Dimer result and Wells score. A negative result doesn't exclude the possibility of DIC. The test be repeated along with other diagnostic tests if the patient's symptoms persist or worsen. [email or web address] Performed By: #### C SOHA CAT, 37717-7, 84809-5, 3040-3 #### [facility] ([id number]) [address] [place] [address] LIPASEon 11-02-2023 Lipase [Catalytic activity/Vol] 64 U/L High 17-40 [facility] Comment on above: Performed By: #### [place], [address]-2, DEEPA SHEEHANP #### [facility] ([id number]) [address] [facility], [address] [place] [address] TROPONIN Ion 11-02-2023 Troponin I.cardiac [Mass/Vol] 0.03 ng/mL Normal 0.00-0.04 [facility] Comment on above: Performed By: #### C EMORY, BMP, 63585-8, 68342-5, 3040-3 #### [facility] ([id number]) [address] [place] [address]121 XR CHEST 1 VWon 11-02-2023 XR CHEST 1 VW XR CHEST 1 VW Single view chest History: Difficulty breathing, shortness of breath Comparison: 05/25/2021 Impression: 1. No acute cardiopulmonary process. No pneumothorax or pleural effusion. 2. Nonenlarged heart. Finalized by Artem Dunbar MD on 11/02/2023 12:38 AM Normal [facility] ACUTE HEPATITIS PANELon ANTI HCV W/PCR REFLX Non-Reactive Normal NRCT Pr [facility] Comment on above: Result Comment: If recent infection suspected, recommend repeat testing (>2 months). Ybiazg-jg-rxpfgu ratio is <0.80. Performed By: #### C YOEL, 41701-3, THYR, AHP #### [facility] ([id number]) [address], [address] [place] [address] HEPATITIS A IGM Non-Reactive [facility] Comment on above: Performed By: #### C YOEL, 59567-6, THYR, AHP #### [facility] ([id number]) [address], [address] [place] [address] HEPATITIS B CORE IGM Negative Normal NEG [facility] Comment on above: Performed By: #### C YOEL, 33529-2, THYR, AHP #### [facility] ([id number]) [address], [address] [place] [address] HEPATITIS B SURF AG Negative Normal NEG [facility] Comment on above: Performed By: #### C YOEL, 78509-2, THYR, AHP #### [facility] ([id number]) [address], [address] [place] [address] COMPREHENSIVE METABOLIC PANE Augustin 11-01-2023 Albumin [Mass/Vol] 3.8 g/dL Normal 3.2-5.3 [facility] Comment on above: Performed By: #### C YOEL, 42465-3, THYR, AHP #### [facility] ([id number]) [address], [address] [place] [address] ALP [Catalytic activity/Vol] 43 U/L Normal 39-130 [facility] Comment on above: Performed By: #### C YOEL, 10665-6, THYR, AHP #### [facility] ([id number]) [address], [address] [place] [address] ALT [Catalytic activity/Vol] 46 U/L High 0-31 [facility] Comment on above: Performed By: #### C YOEL, 46091-6, THYR, AHP #### [facility] ([id number]) [address], [address] [place] [address] Anion gap [Moles/Vol] 4 mmol/L Low 5-15 [facility] Comment on above: Performed By: #### C YOEL, 53899-5, THYR, AHP #### [facility] ([id number]) [address], [address] [place] [address] AST [Catalytic activity/Vol] 34 U/L Normal 0-41 [facility] Comment on above: Performed By: #### C YOEL, 53700-0, THYR, AHP #### [facility] ([id number]) [address], [address] [place] [address] Bilirubin [Mass/Vol] 0.7 mg/dL Normal 0.3-1.2 [facility] Comment on above: Performed By: #### C YOEL, 81557-5, THYR, AHP #### [facility] ([id number]) [address], [address] [place] [address] Calcium [Mass/Vol] 8.7 mg/dL Normal 8.5-10.5 [facility] Comment on above: Performed By: #### C YOEL, 82102-4, THYR, AHP #### [facility] ([id number]) [address] [address] [place] [address] Chloride [Moles/Vol] 106 mmol/L Normal 98-109 [facility] Comment on above: Performed By: #### C YOEL 38854-8, THYR, AHP #### [facility] ([id number]) [address] [address] [place] [address] CO2 [Moles/Vol] 29 mmol/L Normal 22-32 [facility] Comment on above: Performed By: #### C YOEL 87821-9, THYR, AHP #### [facility] ([id number]) [address] [address] [place] [address] Creatinine [Mass/Vol] 0.62 mg/dL Normal 0.40-1.00 [facility] Comment on above: Result Comment: METH OD TRACEABLE TO IDMS STANDARD Performed By: #### Miladys DIALLO 91488-8, AGUILA, PEARL #### [facility] ([id number]) [address] [address] [place] [address] eGFR (CKD-EPI) NON-RACE DEPENDENT >90 Normal >59 [facility] Comment on above: Result Comment: Reported eGFR is based on the CKD-EPI 2021 equation that does not use a race coefficient. Performed By: #### Miladys DIALLO 98611-4, AGUILA, PEARL #### [facility] ([id number]) [address] [address] [place] [address] Glucose [Mass/Vol] 69 mg/dL Normal 65-99 [facility] Comment on above: Performed By: #### Miladys DIALLO 11761-6, THYR, DEEPAP #### [facility] ([id number]) [address] [address] [place] [address] Potassium [Moles/Vol] 3.5 mmol/L Normal 3.5-5.0 [facility] Comment on above: Performed By: #### Miladys DIALLO 14139-7, THYR, AHP #### [facility] ([id number]) [address], [address] [place] [address] Protein [Mass/Vol] 6.5 g/dL Normal 6.0-8.0 [facility] Comment on above: Performed By: #### Miladys DIALLO, 39087-6, THYR, AHP #### [facility] ([id number]) [address], [address] [place] [address] Sodium [Moles/Vol] 139 mmol/L Normal 134-146 [facility] Comment on above: Performed By: #### Miladys DIALLO 22684-6, THYR, AHKeenan #### [facility] ([id number]) [address], [facility] [address] [place] [address] Urea nitrogen [Mass/Vol] 12 mg/dL Normal 5-23 [facility] Comment on above: Performed By: #### Miladys DIALLO, 15136-1, THYR, AHP #### [facility] ([id number]) [address], [facility] [address] [place] [address] Lipid 1996 panelon 4 Cholesterol [Mass/Vol] 93 mg/dL Low 150-200 [facility] Comment on above: Performed By: #### Miladys DIALLO, 83749-7, THYR, AHP #### [facility] ([id number]) [address], [address] [place] [address] Cholesterol in HDL [Mass/Vol] 37 mg/dL Low >39 [facility] Comment on above: Result Comment: HDL <40 mg/dL - High Risk HDL > or = 40mg/dL- Desirable HDL >60 mg/dL - Negative Risk Performed By: #### Miladys DIALLO, 95564-1, THYR, AHP #### [facility] ([id number]) [address] [place] [address] Cholesterol in LDL [Mass/Vol] 44 mg/dL Normal <130 [facility] Comment on above: Result Comment: LDL <100 mg/dL - Desirable LDL >160 mg/dL - High Risk Performed By: #### C YOEL, 13011-4, THYR, AHP #### [facility] ([id number]) [address], [facility] [address] [place] [address] Cholesterol in VLDL [Mass/Vol] 12 mg/dL Normal 0-30 [facility] Comment on above: Performed By: #### C YOEL, 79478-4, THYR, AHP #### [facility] ([id number]) [address], [address] [place] [address] CHOLESTEROL:HDL 2.5 Normal 1.0-5.0 [facility] Comment on above: Performed By: #### Miladys DIALLO, 65096-6, THYR, AHP #### [facility] ([id number]) [address], [facility] [address] [place] [address] Triglyceride [Mass/Vol] 59 mg/dL Normal 27-150 [facility] Comment on above: Performed By: #### Miladys DIALLO, 49037-0, THYR, AHP #### [facility] ([id number]) [address], [facility] [address] [place] [address] THYROID PROFILEon 11-01-2023 Free T4 [Mass/Vol] 1.06 ng/dL Normal 0.61-1.60 [facility] Comment on above: Performed By: #### Miladys DIALLO, 69004-6, THYR, AHP #### [facility] ([id number]) [address] [place] [address] TSH 0.39 uIU/mL Low 0.49-4.67 [facility] Comment on above: Performed By: #### [place], 19[address]-0, THYR, AHP #### [facility] ([id number]) [address] [place] [address] US ABDOMEN LMTDon 11-01-2023 US ABDOMEN LMTD [...] Mirna Reagan DO on 11/01/2023 9:27 AM IGustavo MD have personally reviewed the image(s) and agree with and/or edited the report Finalized by Gustavo Butcher MD on 11/01/2023 9:34 AM Normal [facility] CBC AUTO DIFFon 03-13-2023 BASO # 0.0 103/ul Normal 0.0-0.1 [facility] Comment on above: Performed By: #### C BC #### [facility] [address] [address] [address] Froy Calderón Basophils/100 WBC (Bld) 0.6 % Normal 0.2-2.0 [facility] Comment on above: Performed By: #### C BC #### [facility] [address] [place] [address] Dr. Froy Calderón EO # 0.3 103/ul Normal 0.0-0.7 [facility] Comment on above: Performed By: #### C BC #### [facility] [address] [place] [address] Dr. Froy Calderón Eosinophils/100 WBC (Bld) 3.9 % Normal 0.9-7.0 [facility] Comment on above: Performed By: #### C BC #### [facility] [address] [place] [address] Dr. Froy Calderón Erythrocyte distribution width (RBC) [Ratio] 12.0 % Normal 11.0-15.0 [facility] Comment on above: Performed By: #### C BC #### [facility] [address] [place] [address] Dr. Froy Calderón Hematocrit (Bld) [Volume fraction] 38.6 % Normal 36.0-48.0 [facility] Comment on above: Performed By: #### C BC #### [facility] [address] [place] [address] Dr. Froy Calderón Hemoglobin (Bld) [Mass/Vol] 12.9 g/dL Normal 12.0-16.0 [facility] Comment on above: Performed By: #### C BC #### [facility] [address] [place] [address] Dr. Froy Calderón IG # 0.02 10e3/ul Normal 0.00-0.03 [facility] Comment on above: Performed By: #### C BC #### [facility] [address] [place] [address] Dr. Froy Calderón IG % 0.3 % Normal 0.0-0.5 [facility] Comment on above: Performed By: #### C BC #### [facility] [address] [place] [address] Dr. Froy Calderón LYMPH # 1.8 103/ul Normal 1.2-3.8 [facility] Comment on above: Performed By: #### C BC #### [facility] [address] [place] [address] Dr. Froy Calderón Lymphocytes/100 WBC (Bld) 26.5 % Normal 20.5-60.0 [facility] Comment on above: Performed By: #### C BC #### [facility] [address] [place] [address] Dr. Froy Calderón MANUAL DIFF REQ NO Normal [facility] Comment on above: Performed By: #### C BC #### [facility] [address] [place] [address] Dr. Froy Calderón MCH (RBC) [Entitic mass] 31.3 pg Normal 26.7-34.0 [facility] Comment on above: Performed By: #### C BC #### [facility] [address] [place] [address] Dr. Froy Calderón MCHC (RBC) [Mass/Vol] 33.4 g/dL Normal 29.9-35.2 [facility] Comment on above: Performed By: #### C BC #### [facility] [address] [place] [address] Dr. Froy Calderón MCV (RBC) [Entitic vol] 93.7 fL Normal 81.0-99.0 [facility] Comment on above: Performed By: #### C BC #### [facility] [address] [place] [address] Dr. Froy Calderón MONO # 0.6 103/ul Normal 0.3-0.8 [facility] Comment on above: Performed By: #### C BC #### [facility] [address] [place] [address] Dr. Froy Calderón Monocytes/100 WBC (Bld) 8.1 % Normal 1.7-12.0 [facility] Comment on above: Performed By: #### C BC #### [facility] [address] [place] [address] Dr. Froy Calderón NEUT # 4.2 103/ul Normal 1.4-6.5 [facility] Comment on above: Performed By: #### C BC #### [facility] [address] [address] [address] Froy Calderón Neutrophils/100 WBC (Bld) 60.6 % Normal 43.0-75.0 [facility] Comment on above: Performed By: #### C BC #### [facility] [address] [address] [address] Froy Calderón Platelet mean volume (Bld) [Entitic vol] 9.2 fL Critically low 9.5-13.5 [facility] Comment on above: Performed By: #### C BC #### [facility] [address] [address] [address] Froy Calderón PLT 226 103/ul Normal 150-450 [facility] Comment on above: Performed By: #### C BC #### [facility] [address] [address] [address] Froy Calderón RBC 4.12 106/ul Critically low 4.20-5.40 [facility] Comment on above: Performed By: #### C BC #### [facility] [address] [address] [address] Froy Calderón WBC 7.0 103/ul Normal 4.0-11.0 [facility] Comment on above: Performed By: #### C BC #### [facility] [address] [place] [address] Dr. Froy Calderón FREE T4on 03-13-2023 Free T4 [Mass/Vol] 0.96 ng/dL Normal 0.76-1.46 [facility] Comment on above: Performed By: #### F T4 #### [facility] [address] [place] [address] Dr. Froy Calderón GLYCOHEMOGLOBIN A1Con 2022 ADA RECOMMENDATION SEE BELOW Normal [facility] Comment on above: Result Comment: ADA RECOMMENDED LIMIT 4.0 - 6.0 ADA THERAPEUTIC TARGET < 7.0 ACTION SUGGESTED > 7.0 Performed By: #### A 1C #### [facility] [address] [place] [address] Dr. Froy Calderón Glucose [Mass/Vol] 91 mg/dL Normal [facility] Comment on above: Performed By: #### A 1C #### [facility] [address] [address] [address] Froy Calderón HbA1c (Bld) [Mass fraction] 4.8 % Normal 4.5-6.2 [facility] Comment on above: Performed By: #### A 1C #### [facility] [address] [address] [address] Froy Calderón TSHon 03-13-2023 TSH 5.367 uIU/mL Critically high 0.358-3.740 [facility] Comment on above: Performed By: #### T SH #### [facility] [address] [address] [address] Froy Calderón US PELVIS AND TRANSVAGon [...] by: NATALIE KHAN Date: 2023-02-19 09:20 Normal [facility] PAP ACOG PANEL 2: 30 to 65on 01-31-2023 . . Normal [facility] Comment on above: Result Comment: Perf ormed at: WB Performed By: #### [id number] #### [facility] [address] [place] [address] Dr. Froy Calderón Age Gdln ACOG Testing 30-65 Normal [facility] Comment on above: Performed By: #### 4 [id number] #### [facility] [address] [address] [address] Froy Calderón DIAGNOSIS: Comment Normal [facility] Comment on above: Result Comment: NEGA TIVE FOR INTRAEPITHELIAL LESION OR MALIGNANCY. Performed at: WB Performed By: #### 4 [id number] #### [facility] [address] [address] [address] Froy Calderón HPV Aptima Negative Normal Negative [facility] Comment on above: Result Comment: This nucleic acid amplification test detects fourteen high-risk HPV types (16,18,31,33,35,39,45,51,52,56,58,59,66,68) without differentiation. Performed at: =G Performed By: #### 4 [id number] #### [facility] [address] [place] [address] Dr. Froy Calderón HPV Genotype Reflex Comment Normal [facility] Comment on above: Result Comment: Crit eria not met, HPV Genotype not performed. Performed at: WB Performed By: #### 4 [id number] #### [facility] [address] [place] [address] Dr. Froy Calderón Methodology: Comment Normal [facility] Comment on above: Result Comment: This liquid based ThinPrep(R) pap test was screened with the use of an image guided system. Performed at: WB Performed By: #### 4 [id number] #### [facility] [address] [place] [address] Dr. Froy Calderón Note: Comment Normal [facility] Comment on above: Result Comment: The Pap smear is a screening test designed to aid in the detection of premalignant and malignant conditions of the uterine cervix. It is not a diagnostic procedure and should not be used as the sole means of detecting cervical cancer. Both false-positive and false-negative reports do occur. . Performed at: WB Performed By: #### 4 [id number] #### [facility] [address] [address] [address] Froy Calderón Performed by: Comment Normal [facility] Comment on above: Result Comment: Racheal Villatoro, Data Warehouse Architect Performed at: WB Performed By: #### 4 [id number] #### [facility] [address] [address] [address] Froy Calderón Specimen adequacy: Comment Normal [facility] Comment on above: Result Comment: Sati sfactory for evaluation. Endocervical and/or squamous metaplastic cells (endocervical component) are present. Performed at: WB Performed By: #### 4 [id number] #### [facility] [address] [address] [address] Froy Calderón Cytology Cervical or vaginal smear or scraping studyon 2023 [facility] PREG QUANT HCGon 12-03-2022 HCG QUANT <1 Normal [facility] Comment on above: Performed By: #### P REGQNT #### [facility] [address] [address] [address] Froy Calderón HCG RANGE SEE BELOW Normal [facility] Comment on above: Result Comment: 5-50 0.2-1 WEEK 50-500 1-2 WEEKS 100-5,000 2-3 WEEKS 500-10,000 3-4 WEEKS 1,000-50,000 4-5 WEEKS 10,000-100,000 5-6 WEEKS 15,000-200,000 6-8 WEEKS 10,000-100,000 2-3 MONTHS Performed By: #### P REGQNT #### [facility] [address] [address] [address] Froy Calderón Basic Metabolic Panelon 09-0 Anion gap [Moles/Vol] 10 mmol/L 9 - 17 mmol/L [facility] Calcium [Mass/Vol] 8.4 mg/dL Low 8.6 - 10. 4 mg/dL [facility] Chloride [Moles/Vol] 107 mmol/L 98 - 10 7 mmol/L [facility] CO2 [Moles/Vol] 21 mmol/L 20 - 31 mmol/L [facility] Creatinine [Mass/Vol] 0.61 mg/dL 0.5 - 0.9 mg/dL [facility] GFR >60 60 - PI NF mL/min [facility] GFR Non- >60 60 - PINF mL/min [facility] GFR/1.73 sq M.predicted MDRD (S/P/Bld) [Vol rate/Area] [facility] Comment on above: Average GFR for 20-2 9 years old: 116 mL/min/1.73sq m Chronic Kidney Disease: <60 mL/min/1.73sq m Kidney failure: <15 mL/min/1.73sq m eGFR calculated using average adult body mass. Additional eGFR calculator available at: http://www.Picomize/multiple_crcl_2011.htm Glucose [Mass/Vol] 107 mg/dL High 70 - 99 mg/dL [facility] Interpretation and review of laboratory results Abnormal [facility] Potassium [Moles/Vol] 5.0 mmol/L 3.7 - 5.3 mmol/L [facility] Sodium [Moles/Vol] 138 mmol/L 135 - 144 mmol/L [facility] Urea nitrogen (BldV) [Mass/Vol] 7 mg/dL 6 - 20 mg/dL [facility] CBCon 07-04-2022 Hematocrit (Bld) [Volume fraction] 39.8 % 36.3 - 47.1 % [facility] Hemoglobin (Bld) [Mass/Vol] 13.4 g/dL 11.9 - 15.1 g/dL [facility] Interpretation and review of laboratory results Abnormal [facility] MCH (RBC) [Entitic mass] 30.1 pg 25.2 - 33.5 pg [facility] MCHC (RBC) [Mass/Vol] 33.7 g/dL 28.4 - 34.8 g/dL [facility] MCV (RBC) [Entitic vol] 89.4 fL 82.6 - 102.9 fL [facility] NRBC Automated 0.0 0.0 per 100 WBC [facility] Platelet distribution width (Bld) [Ratio] 11.6 % Low 11.8 - 14.4 % [facility] Platelet mean volume (Bld) [Entitic vol] 9.6 fL 8.1 - 13.5 fL [facility] Platelets (Bld) [#/Vol] 217 10*3/uL [facility] RBC (Bld) [#/Vol] 4.45 10*6/uL 3.95 - 5.1 1 m/uL [facility] WBC (Bld) [#/Vol] 13.6 10*3/uL High [facility] Basic Metabolic Panelon 09-0 Anion gap [Moles/Vol] 14 mmol/L 9 - 17 mmol/L [facility] Calcium [Mass/Vol] 8.8 mg/dL 8.6 - 10. 4 mg/dL [facility] Chloride [Moles/Vol] 103 mmol/L 98 - 10 7 mmol/L [facility] CO2 [Moles/Vol] 18 mmol/L Low 20 - 31 mmol/L [facility] Creatinine [Mass/Vol] 0.66 mg/dL 0.5 - 0.9 mg/dL [facility] GFR >60 60 - PI NF mL/min [facility] GFR Non- >60 60 - PINF mL/min [facility] GFR/1.73 sq M.predicted MDRD (S/P/Bld) [Vol rate/Area] [facility] Comment on above: Average GFR for 20-2 9 years old: 116 mL/min/1.73sq m Chronic Kidney Disease: <60 mL/min/1.73sq m Kidney failure: <15 mL/min/1.73sq m eGFR calculated using average adult body mass. Additional eGFR calculator available at: http://www.Spacedeck.Acustream/multiple_crcl_2012.htm Glucose [Mass/Vol] 126 mg/dL High 70 - 99 mg/dL [facility] Interpretation and review of laboratory results Abnormal [facility] Potassium [Moles/Vol] 4.3 mmol/L 3.7 - 5.3 mmol/L [facility] Sodium [Moles/Vol] 135 mmol/L 135 - 144 mmol/L [facility] Urea nitrogen (BldV) [Mass/Vol] 11 mg/dL 6 - 20 mg/dL [facility] CBC without Diffon Hematocrit (Bld) [Volume fraction] 46.4 % 36.3 - 47.1 % [facility] Hemoglobin (Bld) [Mass/Vol] 15.2 g/dL High 11.9 - 15.1 g/dL [facility] Interpretation and review of laboratory results Abnormal [facility] MCH (RBC) [Entitic mass] 29.9 pg 25.2 - 33.5 pg [facility] MCHC (RBC) [Mass/Vol] 32.8 g/dL 28.4 - 34.8 g/dL [facility] MCV (RBC) [Entitic vol] 91.2 fL 82.6 - 102.9 fL [facility] NRBC Automated 0.0 0.0 per 100 WBC [facility] Platelet distribution width (Bld) [Ratio] 11.9 % 11.8 - 14.4 % [facility] Platelet mean volume (Bld) [Entitic vol] 9.4 fL 8.1 - 13.5 fL [facility] Platelets (Bld) [#/Vol] 232 10*3/uL [facility] RBC (Bld) [#/Vol] 5.09 10*6/uL 3.95 - 5.1 1 m/uL [facility] WBC (Bld) [#/Vol] 9.0 10*3/uL [facility] POCT urine pregnancyon 07-03 Beta HCG ( test) Ql (U) Negative NEGATIVE [facility] Comment on above: Specimens with hCG l evels near the threshold of the test (25 mIU/mL) may give a negative or indeterminate result. In such cases, another test should be performed with a new specimen in 48-72 hours. If early is suspected clinically in this setting, correlation with quantitative serum b-hCG level is suggested. [facility] Gastroenterology Office/Clin ic Noteon 03-29-2021 Gastroenterology Office/Clinic [...] [place] 03/31/21 14:40 EDT Electronically signed by Magdalene Banerjee 04/03/2021 09:24 EDT Normal [facility] 02-27-2021 Consent [id number]# 1.00CD:127 Normal [facility] Registrationon 02-27-2021 Registration [id number]# 1.00CD:127 [facility] Vital Signs Date Time Vital Sign Value Performing Clinician Facility 08-03-2024 09:04-0400 Body mass index (BMI) [Ratio] 23.85 kg/m2 Katherine VELAZCO Work Phone: [facility] 08-03-2024 09:04-0400 Body weight 77.56 kg Katherine VELAZCO Work Phone: [facility] 08-03-2024 09:04-0400 Diastolic blood pressure 72 mm[Hg] Katherine VELAZCO Work Phone: [facility] 08-03-2024 09:04-0400 Systolic blood pressure 118 mm[Hg] Katherine VELAZCO Work Phone: [facility] 07-04-2022 11:11-0400 Body temperature 99.3 [degF] Bretdasia Manuel DO Work Phone: [facility] 07-04-2022 11:11-0400 Diastolic blood pressure 75 mm[Hg] Bretdasia Manuel DO Work Phone: [facility] 07-04-2022 11:11-0400 Heart rate 63 /min Bret Manuel DO Work Phone: [facility] 07-04-2022 11:11-0400 Respiratory rate 16 /min Bret Manuel DO Work Phone: [facility] [employer] 07-04-2022 11:11-0400 SaO2% (BldA) [Mass fraction] 99 % Bret Manuel DO Work Phone: [facility] 07-04-2022 11:11-0400 Systolic blood pressure 141 mm[Hg] Bretdasia Manuel DO Work Phone: [employer] 07-03-2022 09:50-0400 Body height 177.8 cm Bret Manuel DO Work Phone: [employer] 07-03-2022 09:50-0400 Body mass index (BMI) [Ratio] 38.17 kg/m2 Bret Manuel DO Work Phone: [facility] [employer] 07-03-2022 09:50-0400 Body weight 120.66 kg Bret Manuel DO Work Phone: [facility] En[facility]ters Encounter Date Encounter Type Care Provider Facility Start: 08-26-2024 End: 08-26-2024 Emergency department patient visit [facility] Start: 08-15-2024 End: 08-15-2024 External Result Encounter Jake Miramontes DO Work Phone: [facility] Unsolicited Start: 08-15-2024 End: 08-15-2024 External Result Encounter Jake Miramontes DO Work Phone: [facility] Unsolicited Start: 08-15-2024 End: 08-15-2024 ambulatory [facility] Start: 08-03-2024 End: 08-03-2024 Bamboo flowsheet Katherine VELAZCO Work Phone: [facility] Start: 08-03-2024 End: 08-04-2024 Bamboo flowsheet Katherine VELAZCO Work Phone: [facility] Start: 08-03-2024 End: 08-04-2024 External Result Encounter Katherine VELAZCO Work Phone: [facility] Unsolicited Start: 08-03-2024 End: 08-03-2024 Office outpatient visit 15 minutes Katherine VELAZCO Work Phone: [facility] Comment on above: Well woman exam with routine gynecological exam; Exposure to STD; Need for maternal serum alpha-protein (MSAFP) screening; Second trimester ; 17 weeks gestation of ; Screening, , for anatomic survey Start: 08-03-2024 End: 08-03-2024 Patient encounter procedure Katherine De La Torre PA Work Phone: [facility] Start: 08-03-2024 End: 08-03-2024 ambulatory KATHERINE DE LA TORRE Not Available Start: 07-18-2024 End: 07-18-2024 ambulatory [facility] Start: 07-07-2024 End: 07-07-2024 [facility] Start: 06-20-2024 End: 06-20-2024 ambulatory [facility] Start: 06-12-2024 End: 06-12-2024 [facility] Start: 06-06-2024 End: 06-06-2024 Emergency department patient visit [facility] Start: 06-06-2024 End: 06-06-2024 ambulatory [facility] Start: 05-26-2024 End: 05-27-2024 Emergency department patient visit [facility] Start: 05-14-2024 End: 05-14-2024 ambulatory [facility] Start: 05-11-2024 End: 05-11-2024 ambulatory [facility] Start: 05-08-2024 End: 05-08-2024 ambulatory [facility] Start: 05-06-2024 End: 05-06-2024 ambulatory [facility] Start: 05-01-2024 End: 05-01-2024 ambulatory [facility] Start: 04-28-2024 End: 04-28-2024 ambulatory [facility] Start: 02-14-2024 End: 02-14-2024 [facility] Start: 2024 End: 2024 ambulatory KARINA K [facility] Start: 01-18-2024 End: 01-18-2024 ambulatory [facility] Start: 01-03-2024 End: 01-03-2024 ambulatory HALI MALIK [facility] Start: 12-21-2023 End: 12-21-2023 ambulatory [facility] Start: 12-18-2023 Orders Only Jake Miramontes DO Work Phone: [facility] Comment on above: 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; Personal history of other diseases of the female genital tract Start: 12-13-2023 End: 12-13-2023 ambulatory [facility] Start: 11-27-2023 End: 11-27-2023 ambulatory BRET MANUEL [facility] Start: 11-16-2023 End: 11-16-2023 ambulatory DOTTIE DIAZ [facility] Start: 11-01-2023 End: 11-03-2023 Emergency department patient visit BEN KENNEDY [facility] Start: 11-01-2023 End: 11-01-2023 ambulatory KARINA Cox [facility] Start: 03-13-2023 End: 03-14-[address] JAKE MIRAMONTES . Facility:[facility] Start: 02-19-2023 End: 02-20-[address] JAKE MIRAMONTES . Facility:[facility] Start: 2023 End: [address] JAKE MIRAMONTES . Facility:[facility] Start: 12-03-2022 End: 12-04-[address] JAKE MIRAMONTES . Facility:[facility] Start: 07-03-2022 End: 07-04-2022 Subsequent hospital visit by physician Bret Manuel DO Work Phone: [facility] Ortho/Med Surg Comment on above: S/P laparoscopic sle han gastrectomy (Primary Dx); Obesity, unspecified classification, unspecified obesity type, unspecified whether serious comorbidity present; Gastroesophageal reflux disease, unspecified whether esophagitis present Start: 04-27-2021 ambulatory Chayo Amado roque Fofana MD Facility:[facility] Procedures Date Procedure Procedure Detail Performing Clinician Start: 08-15-2024 Assay of thyroid stimulating hormone tsh Jake Miramontes DO Work Phone: Start: 08-03-2024 URETHRITIS/DISCHARGE PLUS VAGINITIS (HTRX) Katherine VELAZCO Work Phone: Start: 08-03-2024 Urnls dip stick/tabl et rgnt non-auto w/o micrscp Katherine VELAZCO Work Phone: Start: 2023 Cytp cerv/vag auto t hin layer prep mnl screen Jake Miramontes DO Work Phone: Start: 07-04-2022 Basic metabolic pane l calcium total Bret Velázquez Kaleb DO Work Phone: Start: 07-03-2022 Basic metabolic pane l calcium total Bret Eber Kaleb DO Work Phone: Start: 07-03-2022 End: 07-03-2022 Laps gstrc rstrictiv px longitudinal gastrectomy Bret Eber Kaleb DO Work Phone: Start: 07-03-2022 Urine test visual color cmprsn meths Bret Velázquez Kaleb DO Work Phone: Start: 04-17-2021 Microscopic observat ion [Identifier] in Cervix by Cyto stain Jake Miramontes DO Work Phone: Plan of Treatment Date Care Activity Detail Author Start: 11-01-2024 Adult BMI Screening Adult BMI Screen [facility] [employer] [facility] Start: 09-01-2024 End: 09-01-2024 Patient encounter procedure 09/01/2024 11:40 AM EST Routine [facility] [address] [place] [id number] Jake Miramontes DO [address] [place] [address] [facility] Start: 09-01-2024 End: 09-01-2024 Professional / ancillary services management 09/01/2024 10:30 AM EST Ancillary Procedure [facility] [address] [place] [id number] [facility] Start: 09-01-2024 End: 09-01-2024 Patient encounter procedure 09/01/2024 9:20 AM EST Routine [facility] [address] [place] [phone] Jake Miramontes DO [address] [facility] [address] [place], [place] [id number] [facility] Start: 08-03-2024 End: 09-03-2024 Alpha fetoprotein, maternal Alpha fetoprotein, maternal Lab Routine Screening, , for anatomic survey Expected: 08/03/2024 (Approximate), Expires: 09/03/2024 [facility] Work Phone: Comment on above: Expected: 08/03/2024 (Approximate), Expires: 09/03/2024 Start: 08-03-2024 End: 08-03-2025 US for US OB ANATOMY SINGLE W US OB CERVICAL LENGTH Imaging Routine Screening, , for anatomic survey Expected: 08/03/2024 (Approximate), Expires: 08/03/2025 [facility] Comment on above: Expected: 08/03/2024 (Approximate), Expires: 08/03/2025 Start: 08-03-2024 End: 08-03-2024 Patient encounter procedure 08/03/2024 8:40 AM EDT Routine [facility] [address] [place] [phone] Katherine De La Torre PA [address] [facility] [address] [place], [place] [id number] Arrived [facility] Comment on above: Arrived Start: 04-17-2024 Screening for malign ant neoplasm of cervix Pap Smear [facility] Start: 12-18-2023 End: 12-18-2024 Antimullerian hormone (AMH) Antimullerian hormone (AMH) Lab Routine Female infertility associated with anovulation Personal history of other diseases of the female genital tract Expected: 12/18/2023, Expires: 12/18/2024 [facility] Work Phone: Comment on above: Expected: 12/18/2023 , Expires: 12/18/2024 Start: 12-06-2023 Tobacco Screening Tobacco Screening [facility] Start: 06-28-2023 Influenza vaccination Influenza Vacc ine [facility] Start: 08-07-2022 End: 08-07-2022 Patient encounter procedure 08/07/2022 Office Visit Bariatrics Dottie Diaz, SEMICONDUCTOR WAFER INSPECTOR - DATA PROCESSING CONTROL CLERK [address] [place] [address] [facility] In[facility] Bariatric Surg Start: 07-12-2022 End: 07-12-2022 Patient encounter procedure 07/12/2022 Office Visit Bariatrics Bret Manuel, DO [address] [place] [address] [facility] Invasive Bariatric Surg Start: 06-28-2022 Influenza vaccination Flu vaccine (# 1) [facility] Start: 2014 Screening for malign ant neoplasm of cervix Pap smear [facility] Start: 01-25-2012 DTaP,Tdap and Td Vaccines (1 - Tdap) DTaP,Tdap and Td Vaccines (1 - Tdap) [facility] Start: 01-25-2012 DTaP/Tdap/Td vaccine (1 - Tdap) DTaP/Tdap/Td vaccine (1 - Tdap) [facility] Start: 2011 Hepatitis C screening Hepatitis C sc reen [facility] Start: 01-25-2008 HIV screening HIV screen [facility] Start: 2005 Depression Screen Depression Screen [facility] Start: 2005 Depression Screening Depression Scre ening [facility] Start: 1994 Varicella vaccine (1 of 2 - 2-dose childhood series) Varicella vaccine (1 of 2 - 2-dose childhood series) [employer] Start: 1993 COVID-19 Vaccine (#1) COVID-19 Vacci ne (#1) [employer] CHLAMYDIA TRACHOMATI S (GENITO/STI) CHLAMYDIA TRACHOMATIS (GENITO/STI) Lab Routine Exposure to STD Ordered: 08/03/2024 [facility] Comment on above: Ordered: 08/03/2024 Continuous pulse oximetry Pulse oximetry, continuous Respiratory Care Routine Every 4hr until discontinued starting 07/03/2022 [employer] Phone: Comment on above: Every 4hr until disc ontinued starting 07/03/2022 Neisseria gonorrhoea e DNA [Presence] in Unspecified specimen by NEGRITO with probe detection Neisseria gonorrhea DNA probe, direct Lab Routine Exposure to STD Ordered: 08/03/2024 [facility] Comment on above: Ordered: 08/03/2024 Oxygen therapy [[facility] Data Set] Initiate Oxygen Therapy Protocol Respiratory Care Routine As Needed until discontinued starting 07/03/2022 [employer] Phone: Comment on above: As Needed until disc ontinued starting 07/03/2022 Spirometry panel Incentive brea metry Respiratory Care Routine Every 2hr while awake until discontinued starting 07/03/2022 [employer] Phone: Comment on above: Every 2hr while awak e until discontinued starting 07/03/2022 SURESWAB(R) ADVANCED VAGINITIS PLUS, TMA SURESWAB(R) ADVANCED VAGINITIS PLUS, TMA Pathology and Cytology Routine Exposure to STD Ordered: 08/03/2024 [facility] Comment on above: Ordered: 08/03/2024 Surgical Pathology Surgical Path ology Lab Routine Obesity, unspecified classification, unspecified obesity type, unspecified whether serious comorbidity present Gastroesophageal reflux disease, unspecified whether esophagitis present Release Upon Ordering for 1 Occurrences starting 07/03/2022 [employer] Phone: Comment on above: Release Upon Orderin g for 1 Occurrences starting 07/03/2022 End: 07-03-2022 SURGICAL PATHOLOGY REPORT SURGICAL PATHOLOGY REPORT Lab Routine Once for 1 Occurrences starting 07/03/2022 until 07/03/2022 TREVON BARCENAS [facility] [employer] Work Phone: Comment on above: Once for 1 Occurrenc es starting 07/03/2022 until 07/03/2022 Thyrotropin [Units/volume] in Serum or Plasma TSH Lab Routine 08/15/2024 9:17 AM EDT [facility] Work Phone: Payers Date Payer Category Payer Medicaid [id number] 2022 Medicaid [id number] 2021 Unknown [employer] [id number] 2021-Present [phone] [address] [place] [address] [id number]. [id number] 2021 Unknown 1993 Unknown [id number] 2.16.840.1.514007.3.579.2.196 1993 Unknown [id number] 2.16.840.1.293715.3.579.2.593 1993 Unknown [id number] 2.16.840.1.763206.3.579.2.593 1993 Unknown [id number] 2.16.840.1.424353.3.579.2.593 1993 Unknown [id number] 2.16.840.1.350405.3.579.2.593 1993 Unknown [id number] 2.16.840.1.693809.3.579.2.175 1993 Unknown [id number] 2.16.840.1.900294.3.579.2.1259 1993 Unknown [id number] 2.16.840.1.438746.3.579.2.125 1993 Unknown [id number] 2.16840.1.834860.3.579.2.1259 1993 Unknown [id number] 2.16840.1.531845.3.579.2.1285 1993 Unknown [id number] 2.16.840.1.514296.3.579.2.1285 1993 Unknown [id number] 2.840.1.726847.3.579.2.1285 1993 Unknown [id number] 2.840.1.902363.3.579.2.1285 1993 Unknown [id number] 2.840.1.096382.3.579.2.1285 1993 Unknown [id number] 2.840.1.591338.3.579.2.1285 1993 Unknown [id number] 2.840.1.231993.3.579.2.1285 1993 Unknown [id number] 2.840.1.491800.3.579.2.1285 1993 Unknown [id number] 2.840.1.695999.3.579.2.1285 1993 Unknown [id number] 2.840.1.608075.3.579.2.1285 1993 Unknown [id number] 2.840.1.490226.3.579.2.1285 1993 Unknown [id number] 2.16840.1.375315.3.579.2.1285 1993 Unknown [id number] 2.16840.1.108486.3.579.2.1285 1993 Unknown [id number] 2.16840.1.579860.3.579.2.1285 1993 Unknown [id number] 2.16840.1.753697.3.579.2.1286 1993 Unknown [id number] 2.16.840.1.940486.3.579.2.1286 1993 Unknown [id number] 2.16.840.1.884077.3.579.2.1286 1993 Unknown [id number] 2.16.840.1.379745.3.579.2.1286 Social History Date Type Detail Facility Start: 06-15-2022 End: 06-12-2024 Tobacco smoking status NHIS Never smoked tobacco [employer] Start: 06-15-2022 End: 06-12-2024 Tobacco use and exposure Smokeless tobacco non-user [employer] Phone: Start: 07-04-2022 End: 11-01-2023 Alcohol intake Current drinker of alcohol (finding) [employer] Phone: Start: 12-21-2021 History SDOH Alcohol Comment occ [employer] Phone: Start: 1995 Sex Assigned At Not on file B ON [employer] Phone: Start: 06-08-2022 End: 06-18-2022 Exposure to SARS-CoV-2 (event) Not sure [employer] Phone: Start: 11-01-2023 End: 06-12-2024 History of Social function [facility] Start: 11-01-2023 End: 06-12-2024 Tobacco use panel [facility] Childcare Unknown [facility] Start: 08-05-2019 Alcohol Comment occassionally [facility] Start: 07-30-2024 Alcoholic beverage intake Ex-drinker (finding) [facility] Start: 01-19-2024 Alcohol Comment occasional [facility] Start: 04-20-2024 [facility] History of Present illness Narrative 08-03-2024 MORA Jackson - 08/03/2024 8:40 AM EDT Note Date & Type Note Facility 08-03-2024 History of Presen t illness Narrative Reason for Appointment: Patient ID: Phillip Avalos is a 29 y.o. female who presents for Routine Visit Patient presents today for Return OB appointment. MEDICATIONS Current Outpatient Medications Medication Instructions iron polysaccharides (PROFE) 391.3 mg, Oral, Daily omeprazole (PRILOSEC) 20 mg, Oral, Daily before breakfast, Do not crush or chew. Vit-Fe Fumarate-FA ( Vitamins) 28-0.8 MG tablet 1 tablet, Oral, Daily ALLERGIES Allergies Allergen Reactions Latex Itching and Rash Other Reaction(s): Unknown Sulfamethoxazole-Trimethoprim Hives Other Reaction(s): Unknown Hives to face Hives to face PROBLEMS Active Ambulatory Problems Diagnosis Date Noted Positive blood test 04/27/2024 Missed menses 05/05/2024 Resolved Ambulatory Problems Diagnosis Date Noted No Resolved Ambulatory Problems Past Medical History: Diagnosis Date Desire for History of miscarriage Obesity (BMI 30-39.9) HISTORY PAST MEDICAL HISTORY SOCIAL HISTORY Past Medical History: Diagnosis Date Desire for History of miscarriage Obesity (BMI 30-39.9) Social History Tobacco Use Smoking status: Never Smokeless tobacco: Never Substance Use Topics Alcohol use: Not Currently Comment: occasional Drug use: Never FAMILY HISTORY Family History Problem Relation Name Age of Onset Multiple sclerosis Mother Diabetes Maternal Grandmother G Hypertension Maternal Grandmother G Heart disease Maternal Grandmother G SURGICAL HISTORY No past surgical history on file. REVIEW OF SYSTEMS Review of Systems: Review of Systems Constitutional: Negative. HENT: Negative. Eyes: Negative. Respiratory: Negative. Cardiovascular: Negative. Gastrointestinal: Negative. Genitourinary: Negative. Musculoskeletal: Negative. Skin: Negative. Neurological: Negative. All other systems reviewed and are negative. Hematological: Negative. Endocrine: Negative. Allergic/Immunologic: Negative. OBJECTIVE Objective: Physical Exam Constitutional: Appearance: Normal appearance. HENT: Head: Normocephalic. Nose: Nose normal. Mouth/Throat: Mouth: Mucous membranes are moist. Cardiovascular: Rate and Rhythm: Normal rate. Pulmonary: Effort: Pulmonary effort is normal. Abdominal: General: Bowel sounds are normal. Palpations: Abdomen is soft. Musculoskeletal: General: Normal range of motion. Cervical back: Normal range of motion. Neurological: General: No focal deficit present. Mental Status: She is alert. Skin: General: Skin is warm and dry. Psychiatric: Mood and Affect: Mood normal. Vitals and nursing note reviewed. Exam conducted with a front office associate present. Vitals: Estimated body mass index is 23.85 kg/m as calculated from the following: Height as of 03/13/23: 5' 11 . Weight as of this encounter: 171 lb. BP: 118/72 Patient's last menstrual period was 04/06/2024. ASSESSMENT & PLAN ICD-10-CM 1. Well woman exam with routine gynecological exam Z01.419 CANCELED: Pap Smear CANCELED: HPV DNA probe, amplified 2. Exposure to STD Z20.2 SURESWAB(R) ADVANCED VAGINITIS PLUS, TMA CHLAMYDIA TRACHOMATIS (GENITO/STI) Neisseria gonorrhea DNA probe, direct CANCELED: SURESWAB(R) ADVANCED VAGINITIS PLUS, TMA CANCELED: CHLAMYDIA TRACHOMATIS (GENITO/STI) CANCELED: Neisseria gonorrhea DNA probe, direct 3. Need for maternal serum alpha-protein (MSAFP) screening Z36.1 4. Second trimester Z34.92 POCT urinalysis dipstick manually resulted 5. 17 weeks gestation of Z3A.17 POCT urinalysis dipstick manually resulted 6. Screening, , for anatomic survey Z36.89 Alpha fetoprotein, maternal US OB ANATOMY SINGLE W US OB CERVICAL LENGTH Alpha fetoprotein, maternal Pt present today for OB annual/cx visit. Pt refused pap smear and cx's were taken by urine sample. Pt states she will have pap smear done at another visit. Pt had no issues at this time. Pt was given her 20 week anatomy US to have scheduled, MSAFP order to have drawn at the lab and her order to rpt TSH lab work by 08/15/2024. Pt was seen by Katherine De La Torre heart tones were done and Ipad US was administered by Katherine De La Torre at today's visit. Pt had no questions over the orders. Pt to return back in 4 weeks for her next OB visit. Documented by Glenda Cristina MA on behalf of: MORA Jackson documented in this encounter [facility] History of Present illness Narrative 07-04-2022 Donna [...] for or 07/03/22 documented in this encounter [facility] [employer] Work Phone: Hospital Discharge instructions 07-04-2022 Discharge Instructions Note Date & Type Note Facility 07-04-2022 Hospital Discharg e instructions Garrett Corcoran, DO - 07/04/2022 8:07 AM EDT Discharge Instructions for Bariatric Surgery You had a Laparoscopic Sleeve Gastrectomy (88502) surgery to treat obesity. Recovery from this [...] scheduled appointment, please call the office at [phone]. Call Your Doctor If Any of the [...] 911 immediately. documented in this encounter [facility] [employer] Phone: Clinical Note 02-24-2021 Note Date & [...] states she had a colonoscopy performed in [facility] in 2018 as well as EGD and [...] are mucoid-like in nature N/V/blood/frequency: Positive nausea [place] Score: Typically she rates it for although up to 6 with blood MELD Score: Mobile IV Score: Previous Labs: She states [place] blood work [place] although I currently do not have the [...] areas. Neurologic: Awake, (more content not included)... [facility] Evaluation note Note Date & Type Note Facility Evaluation note Diagnosis S/P laparoscopic sleeve gastrectomy- Primary Obesity, unspecified classification, unspecified obesity type, unspecified whether serious comorbidity present Gastroesophageal reflux disease, unspecified whether esophagitis present documented in this encounter [facility] Work Phone: Evaluation note Note Date & Type Note Facility Evaluation note Diagnosis Female infertility associated with anovulation Personal history of other diseases of the female genital tract documented in this encounter [facility] Evaluation note Note Date & Type Note Facility Evaluation note Diagnosis Well woman exam with routine gynecological exam Routine gynecological examination Exposure to STD Need for maternal serum alpha-protein (MSAFP) screening Second trimester state, incidental 17 weeks gestation of Screening, , for anatomic survey Encounter for anatomic survey documented in this encounter [facility] Instructions Note Date & Type Note Facility Instructions Not on filedocumented in this en counter [facility] Summary Purpose Family History No Family [...] section and content) DATE CREATED AUTHOR 02/28/2021 [facility] DATE CREATED AUTHOR AUTHOR'S ORGANIZ ATION 04/27/2021 [facility] DATE CREATED AUTHOR AUTHOR'S ORGANIZ ATION 03/14/2023 [facility] DATE CREATED AUTHOR AUTHOR'S ORGANIZ ATION 11/29/2023 [facility] DATE CREATED AUTHOR AUTHOR'S ORGANIZ ATION 08/03/2024 [facility] DATE CREATED AUTHOR AUTHOR'S ORGANIZ ATION 08/28/2024 [facility] Reason for Visit (unrecogniz ed section and content) Specialty Diagnoses / Procedures Referred By Sis t Referred To Contact Diagnoses Obesity, unspecified classification, unspecified obesity type, unspecified whether serious comorbidity present Gastroesophageal reflux disease, unspecified whether esophagitis present OBESITY, GERD Procedures MT LAP, MEHUL RESTRICT PROC, LONGITUDINAL GASTRECTOMY XI ROBOTIC LAPAROSCOPIC GASTRECTOMY SLEEVE, EGD, LIVER BIOPSY - GI SCHEDULED Bret Manuel, [address] [address] [facility] [address] [place] [address] Referral ID Status Reason Start Date Expiration Date Visits Re quested Visits Authorized [id number] 1 1 Reason Comments Routine Visit Ordered Prescriptions (unrec ognized section and content) [...] (Given - Provider: Robert Cobb APRN - ACCESS DEVELOPER) heparin (porcine) injection 5,000 Units (COMPLETED) 5,000 [...] Provider: Adi Bernal RCP - Reason: Patient/family refused)2000 (Due) ketorolac (TORADOL) injection 15 mg (COMPLETED) [...] Stoner RN) 0836 (Given - Provider: Donna Trammell, SUZANNE) scopolamine (TRANSDERM-SCOP) transdermal patch 1 patch 1 [...] Kwong RN - Reason: IV Fluid Infusing) 0922 (Not Given - Provider: Donna Trammell RN [...] Comment: Switch to gravity)1414 (Restarted - Provider: Robert Cobb APRN - ACCESS DEVELOPER)1456 (New Bag - Provider: Robert Cobb APRN - ACCESS DEVELOPER)1630 (Anesthesia Volume Adjustment - Provider: Robert Cobb APRN - BRYANT) 1354 (Stopped - Provider: Donna Trammell RN) lactated ringers infusion (CANCELED) IntraVENous, at 125 mL/hr, CONTINUOUS, Starting on Sat07/03/22 at 1800, Post-op 1637 (New Bag - Provider: Gypsy Stoner RN)2113 (New Bag - Provider: Chihci wKong RN) 0520 (New Bag - Provider: Chichi Kwong RN)1354 (Stopped - Provider: Donna Trammell RN) PRN Medication Order 07/02/2022 07/03/2022 07/04/2022 0.9 [...]
Care Teams (unrecognized sec tion and content) Loading Unit Operator Seating Relationship Specialty Start Date End Date Jake Miramontes MD [address] [place] [address] PCP - General Obstetrics & Gynecology 06/18/22 Loading Unit Operator Seating Relationship Specialty Start Date End Date Karina Lopez DO [address] [place] [address] PCP - General Family Medicine 11/01/23 FOR [...] BE BASED ON THE PRIMARY CLINICAL RECORDS. [facility] [employer] [facility] provides no warranty or guarantee of the accuracy or completeness of information in this document.
== END 2024-09-01 10:23 | disposition home or self-care (01) ==
LOC: NOMS 10:22
PROVIDERS: Visit Provider Obstetrics & Gynecology
DX: Z36.89 Encounter for other specified antenatal screening (principal); O36.62X0 Maternal care for excessive fetal growth, second trimester, not applicable or unspecified; Z3A.21 21 weeks gestation of pregnancy
CPT/HCPCS: 76805; 76817

== ENCOUNTER 2024-10-15 15:06 | Outpatient (OUT) | payer MEDICAID, SELFPAY ==
--- NOTE | 2024-10-15 15:08 | US_ITS ---
[address] [address] Patient Name: SKYLER NORIEGA MRN: [id number] date: 1995 Sex: F Assigned Patient Location: [facility] Current Patient Location: [facility] Accession/Order Number: [id number] Exam Date: 10/15/2024 15:09 Report Date: 10/15/2024 16:12 At the request of: GERALDINE HOLLIDAY Procedure: US OB growth EXAMINATION: US OB growth HISTORY: INCONSISTENT SIZE COMPARISON: No relevant comparison available. FINDINGS: Heart Rate: 157 bpm Amniotic Fluid Volume: 11.4 cm, largest fluid pocket 4.2 cm Number: 1 Position: Cephalic presentation, longitudinal lie BIOMETRY: BPD: 7.93 cm; 31 weeks 6 days; >97 % HC: 28.39 cm; 31 weeks 6 days; >97 % AC: 26.33 cm; 30 weeks 3 days; >97 % FL: 5.51 cm; 29 weeks 0 days; 81.20 % EFW: 1682.22 g; >97 %, 3 lbs. 6 oz. FL/AC: 20.93 FL/BPD: 69.48 HC/AC: 1.08 GESTATIONAL AGE: Age by EDC: 27 weeks 3 days KIERRA by EDC: 2025[birth year]01-11 Age by US: 30 weeks 0 days KIERRA by US: 2024-12-24 US/US OB growth IMPRESSION: Mildly prominent lateral ventricles as well as fluid surrounding the cortex. Further evaluation is recommended BPD, head circumference, abdominal circumference and estimated weight greater than the 97th percentile Electronically authenticated by: NATALIE KHAN Date: 10/15/2024 16:12
== END 2024-10-15 15:07 | disposition home or self-care (01) ==
LOC: NOMS 15:07
PROVIDERS: Visit Provider Obstetrics & Gynecology
DX: O26.843 Uterine size-date discrepancy, third trimester (principal); Z3A.30 30 weeks gestation of pregnancy
CPT/HCPCS: 76816

== ENCOUNTER 2024-10-22 07:43 | Outpatient (RCR) | payer MEDICAID, SELFPAY ==
[2024-10-22 12:03] VITALS: BP 110/57; PULSE 63; TEMP 36.3; O2SAT 100
[2024-10-22] MEDS: RHO(D) IMMUNE GLOBULIN 1,500 UNIT SYRINGE 1500 UNIT IM (12:34)
== END 2024-10-23 12:33 | disposition home or self-care (01) ==
LOC: LAB 07:43
PROVIDERS: Visit Provider Obstetrics & Gynecology
DX: O26.893 Other specified pregnancy related conditions, third trimester (principal); Z67.91 Unspecified blood type, Rh negative; Z3A.00 Weeks of gestation of pregnancy not specified
CPT/HCPCS: 36415; 86850; 86900; 86901; 96372; J2791

== ENCOUNTER 2024-12-10 02:57 | Outpatient (OUT) | payer MEDICAID, SELFPAY ==
--- OUTSIDE RECORDS SUMMARY | 2024-12-10 03:01 | XMS_ITS | CCD ---
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 Name Role Phone Ct LEAL, Chayo Mina Attending Unavailable Jake Miramontes MD Primary Care Provider FE ., DR CHANDLER Admitting Unavailable REQUEST, DR NONE LISTED Primary Care Unavaila ble FE ., DR CHANDLER Consulting Unavailable FE ., DR CHANDLER Attending Unavailable FE ., DR CHANDLER Admitting Unavailable REQUEST, DR NONE LISTED Primary Care Unavaila ble FE ., DR CHANDLER Consulting Unavailable FE ., DR CHANDLER Attending Unavailable FE ., DR CHANDLER Consulting Unavailable REQUEST, DR NONE LISTED Primary Care Unavaila ble FE ., DR CHANDLER Attending Unavailable FE ., DR CHANDLER Admitting Unavailable FE ., DR CHANDLER Admitting Unavailable REQUEST, NONE LISTED Primary Care Unavaila ble EAU GALLE, DR NATALIE Yung Consulting Unavailable FE ., DR CHANDLER Attending Unavailable FE ., DR CHANDLER Consulting Unavailable REQUEST, DR NONE LISTED Consulting Unavaila BRET Way Attending Unavailable BRET MANUEL Admitting Unavailable JAKE MIRAMONTES Primary Care Unavailable Rumschlag DO, Karina K Primary Care Provider Unavailable Primary Care Provider Unavailabl e RUMSCHLAG, [...] Unavailable RUMSCHLAG, KARINA K Primary Care Unavailable FE, JAKE R Referring Unavailable FE, JAKE R Referring Unavailable FE, JAKE R Primary Care Unavailable FE, JAKE R Referring Unavailable FE, JAKE R Primary Care Unavailable FE, JAKE R Referring Unavailable FE, JAKE R Primary Care Unavailable FE, JAKE R Referring Unavailable FE, JAKE R Primary Care Unavailable FE, JAKE R Referring Unavailable FE, JAKE R Primary Care Unavailable ROGER MCKENZIE Attending Unavailable FE, JAKE R Primary Care Unavailable FE, JAKE R Referring Unavailable FE, JAKE R Primary Care Unavailable FE, JAKE R Primary Care Unavailable NATALIE PATTEN Attending Unavailable RUMSCHLAG, KARINA K Primary Care Unavailable DOTTIE DIAZ Referring Unavailable RUMSCHLAG, KARINA K Referring Unavailable RUMSCHLAG, KARINA K Primary Care Unavailable RUMSCHLAG, KARINA K Primary Care Unavailable FE, JAKE R Referring Unavailable RUMSCHLAG, KARINA K Primary Care Unavailable FE, JAKE R Referring Unavailable FE, JAKE R Referring Unavailable FE, JAKE R Primary Care Unavailable FE, JAKE R Referring Unavailable FE, JAKE R Primary Care Unavailable FE, JAKE R Referring Unavailable FE, JAKE R Primary Care Unavailable ROGER MCKENZIE Attending Unavailable FE, JAKE R Primary Care Unavailable FE, JAKE R Referring Unavailable FE, JAKE R Primary Care Unavailable Fe DO, Jake R Primary Care Provider [phone] TSERING MIRAMONTESY Attending Unavailable FE, JAKE Attending Unavailable FE, JAKE Attending Unavailable KATHERINE DE LA TORRE Attending Unavailable FE, JAKE Attending Unavailable FE, JAKE Attending Unavailable FE, JAKE Attending Unavailable FE, JAKE Attending Unavailable Allergies Allergy Classification Reported Allergen(s) Allergy Type Date of Onset Reaction(s) Facility (4 sources) Latex; Translations: [LATEX] Propensity to adverse reactions to drug 09-22-20 [facility] (20 sources) Sulfamethoxazole / Trimethoprim; Translations: [SULFAMETHOXAZOLE-T RIMETHOPRIM] Drug Allergy 07-02-[address] [facility] Work Phone: (20 sources) Latex Propensity to adverse reactions 09-22-20 Itching, Rash [facility] Medications Current Medications [...] benzocaine-menthol (CEPACOL SORE THROAT) lozenge 1 lozenge Calcium (4 sources) Phosphate Binder, Calcium Start: 06-16-2024 End: 07-16-2024 take 1 tablet by mouth once daily calcium 500 MG tablet Indications: Low calcium levels Take 1 tablet (500 mg) by mouth Daily 30 tablet 3 06/16/2024 07/16/2024 Active calcium carbonate 1250 mg oral tablet (16 sources) Start: 09-07-2024 take 1 tablet by mouth once daily Oyster Shell Calcium 500 MG tablet Indications: Second trimester Take 1 tablet by mouth once daily 90 tablet 09/07/2024 Active cyclobenzaprine hydrochloride 10 mg oral tablet (2 [...] 07/18/2022 Active famotidine 20 mg oral tablet (2 sources) Histamine-2 Receptor Antagonist Start: 11-02-2023 take 1 tablet by mouth in the morning, then take 1 tablet by mouth at bedtime famotidine (PEPCID) 20 mg tablet Take 1 tablet (20 mg total) by mouth in the morning and 1 tablet (20 mg total) before bedtime. 20 tablet 11/02/2023 Active 1 ml heparin sodium, porcine [...] mg metFORMIN hydrochloride 500 mg oral tablet (2 sources) Biguanide take 1 tablet by mouth in the morning, then take 1 tablet by mouth at bedtime metFORMIN (GLUCOPHAGE) 500 mg tablet Take 1 tablet (500 mg total) by mouth in the morning and 1 tablet (500 mg total) before bedtime. Active zhrbyift-mqdt-LJ-calcium &mins (THERAGRAN-M) 9 mg iron-400 mcg tablet (2 sources) qljgbpqx-ioed-DY -calcium &mins (THERAGRAN-M) 9 mg iron-400 mcg tablet Take 1 tablet by mouth in the morning. Active qteqggho-cdck-BG -calcium &mins (THERAGRAN-M) 9 mg iron-400 mcg tablet Take 1 tablet by mouth in the morning. 0 Active omeprazole 20 mg delayed release oral capsule (20 sources) Proton Pump Inhibitor Start: 07-07-2024 End: 10-07-2024 take 1 capsule by mouth before mealtime omeprazole (PriLOSEC) [address] capsule Indications: Gastroesophageal Reflux Disease , Heartburn Take 1 capsule (20 mg) by mouth in the morning. Take before meals. Do not crush or chew.. 30 capsule 3 09/07/2024 Active 2 ml ondansetron 2 mg/ml injection (1 source) Serotonin-3 Receptor Antagonist Start: 07-03-2022 ondansetron (ZOFRAN) injection 4 mg pantoprazole 40 mg delayed release oral tablet (1 source) Proton Pump Inhibitor Start: 07-03-2022 pantoprazole (PROTONIX) tablet 40 mg phenol 14 mg/ml mouthwash (1 source) Start: 07-04-2022 phenol 1.4 % mouth spray 1 spray polysaccharide iron complex 391 mg oral capsule (20 sources) Start: 06-08-2024 End: 06-08-2025 take 1 capsule by mouth once daily iron polysaccharides (ProFe) 391.3 (180 Fe) MG capsule Indications: Antepartum anemia Take 1 capsule (391.3 mg) by mouth Daily 90 capsule 3 06/08/2024 06/08/2025 Active Vit-Fe Fumarate-FA ( Vitamins) 28-0.8 MG tablet (20 sources) Start: 08-11-2024 End: 08-11-2025 take 1 tablet by mouth once daily [...] End: 07-04-2022 aprepitant (EMEND) capsule 80 mg Blood Glucose Monitoring Suppl (D-Care Glucometer) w/Device kit (8 sources) Start: 09-29-2024 End: 11-04-2024 Blood Glucose Monitoring Suppl (D-Care Glucometer) w/Device kit Indications: Gestational diabetes mellitus (GDM), antepartum, gestational diabetes method of control unspecified , Elevated glucose tolerance test 1 kit Daily Use four times daily to check FSBS. In the morning prior to breakfast & 1 hour after each meal for a total of 4times daily. 1 kit 09/29/2024 11/04/2024 Discontinued Start: 09-29-2024 End: 09-29-[address] (D-Care Glucometer) w/Device kit Indications: Gestational diabetes mellitus (GDM), antepartum, gestational diabetes method of control unspecified , Elevated glucose tolerance test 1 kit Daily Use four times daily to check FSBS. In the morning prior to breakfast & 1 hour after each meal for a total of 4times daily. 1 kit 09/29/2024 09/29/2025 Active calcium chloride 0.0014 meq/ml / potassium chloride 0.004 meq/ml / sodium chloride 0.103 meq/ml / sodium lactate 0.028 meq/ml injectable solution (2 sources) Start: 07-03-2022 End: 07-04-2022 lactated ringers infusion ceFAZolin (ANCEF) 2000 mg in sterile water 20 mL IV syringe (1 source) Start: 07-03-2022 End: 07-04-2022 ceFAZolin (ANCEF) 2000 mg in sterile water 20 mL IV syringe ferrous sulfate 325 mg oral tablet (18 sources) Start: 11-03-2024 End: 11-05-2025 take 1 tablet by mouth at mealtime ferrous sulfate 325 (65 Fe) MG tablet Indications: Antepartum anemia Take 1 tablet (325 mg) by mouth in the morning. Take with meals. 30 tablet 11 11/05/2024 12/05/2024 isopropyl alcohol 0.7 ml/ml medicated pad (8 sources) Start: 09-29-2024 End: 11-04-2024 Alcohol Swabs (Alcohol Prep Pad) 70 % pads Indications: Gestational diabetes mellitus (GDM), antepartum, gestational diabetes method of control unspecified , Elevated glucose tolerance test Apply 1 Pad topically Daily Use four times daily to check FSBS. 150 each 3 09/29/2024 11/04/2024 Discontinued 1 ml ketorolac tromethamine 15 mg/ml cartridge (1 source) Nonsteroidal Anti-inflammatory Drug, Cyclooxygenase Inhibitor Start: 07-04-2022 End: 07-04-2022 ketorolac (TORADOL) injection 15 mg metoclopramide 10 mg oral tablet (12 sources) Dopamine-2 Receptor Antagonist Start: 08-27-2024 End: 11-04-2024 metoclopramide (Reglan) 10 MG tablet Indications: Gastroesophageal reflux in Take 1 tablet (10 mg) by mouth in the morning and 1 tablet (10 mg) at noon and 1 tablet (10 mg) in the evening. Take before meals. Take 1 tablet by mouth 30 minutes prior to meals 3 times daily as needed for nausea.. 90 tablet 3 08/27/2024 11/04/2024 Discontinued 2 ml midazolam 1 mg/ml injection (1 [...] Classification Problem Date Documented Da te Episodic/Chronic Biliary tract disease (1 source) Cholecystitis, unspecified; Translations: [Cholecystitis, unspecified] Onset: 4 Episodic Diabetes mellitus without complication (4 sources) Abnormal glucose tolerance test; Translations: [Other abnormal glucose] 09-30-2024 Episodic Diabetes or abnormal glucose tolerance complicating ; childbirth; or the puerperium (4 sources) Gestational diabetes mellitus; Translations: [Gestational diabetes mellitus in , unspecified control] 09-30-2024 Episodic Esophageal disorders (3 sources) Gastroesophageal reflux disease; Translations: [Gastro-esophageal reflux disease without esophagitis] Onset: 4 Chronic Essential hypertension (2 sources) Essential hypertension; Translations: [Essential (primary) hypertension] Onset: 2 01-31-2022 Chronic Female infertility (6 sources) Female infertility, unspecified; Translations: [Female infertility associated with anovulation] Onset: 3 Chronic Immunizations and screening for infectious disease (3 sources) Encounter for screening for human papillomavirus (HPV); Translations: [Exposure to sexually transmissible disorder] Onset: 3 08-03-2024 Episodic Menstrual disorders (20 sources) Missed period; Translations: [Irregular menstruation, unspecified] Onset: 4 05-05-2024 Chronic Nonspecific chest pain (2 sources) Chest pain, unspecified; Translations: [Chest pain] Onset: 4 Episodic Nutritional deficiencies (1 source) Vitamin D deficiency, unspecified; Translations: [Vitamin D deficiency, unspecified] Onset: 4 Chronic Other complications of (2 sources) Excessive growth affecting management of mother; Translations: [Maternal care for excessive growth, unspecified trimester, not applicable or unspecified] 12-02-2024 Episodic Other endocrine disorders (1 source) Polycystic ovarian syndrome; Translations: [Polycystic ovarian syndrome] Onset: 4 Chronic Other female genital disorders (1 source) Abnormal uterine and vaginal bleeding, unspecified; Translations: [Abnormal uterine and vaginal bleeding, unspecified] Onset: 4 Chronic Other female genital disorders (1 source) H/O: Disorder; Translations: [Personal history of other diseases of the female genital tract] 12-18-2023 Episodic Other gastrointestinal disorders (4 sources) History of sleeve gastrectomy; Translations: [Bariatric surgery status] Onset: 2 Episodic Other nutritional; endocrine; and metabolic disorders (1 source) Obesity; Translations: [Obesity, unspecified] Chronic Other nutritional; endocrine; and metabolic disorders (1 source) Body mass index 30+ - obesity; Translations: [Obesity, unspecified] 01-31-2022 Chronic Other and delivery including normal (20 sources) Serum test positive; Translations: [Encounter for test, result positive] Onset: 4 05-05-2024 Episodic Other screening for suspected conditions (not mental disorders or infectious disease) (15 sources) Encounter for screening for malignant neoplasm of cervix; Translations: [Alpha-fetoprotein blood test status] Onset: 3 Episodic Ovarian cyst (4 sources) Unspecified ovarian cyst, right side; Translations: [UNSPECIFIED OVARIAN CYST RIGHT SIDE] Onset: 3 Episodic Residual codes; unclassified (2 sources) Gestation period, 17 weeks; Translations: [17 weeks gestation of ] 08-03-2024 Episodic Residual codes; unclassified (2 sources) Gestation period, 21 weeks; Translations: [21 weeks gestation of ] 09-01-2024 Episodic Residual codes; unclassified (2 sources) Gestation period, 25 weeks; Translations: [25 weeks gestation of ] 09-29-2024 Episodic Residual codes; unclassified (2 sources) Gestation period, 28 weeks; Translations: [28 weeks gestation of ] 10-22-2024 Episodic Residual codes; unclassified (2 sources) Gestation period, 30 weeks; Translations: [30 weeks gestation of ] 11-04-2024 Episodic Residual codes; unclassified (2 sources) Gestation period, 32 weeks; Translations: [32 weeks gestation of ] 11-18-2024 Episodic Residual codes; unclassified (2 sources) Gestation period, 34 weeks; Translations: [34 weeks gestation of ] 12-02-2024 Episodic Thyroid disorders (3 sources) Autoimmune thyroiditis; Translations: [Hypothyroidism, unspecified] Onset: 4 Chronic Unclassified (1 source) Vaginal Bleeding - Onset: 4 Unclassified (1 source) Vaginal Bleeding- 7 weeks Onset: 4 Past or Other Problems Problem Classification Problem Date Documented Da te Episodic/Chronic Abdominal pain (1 source) Pelvic and perineal pain; Translations: [Pelvic and perineal pain] Onset: 4 Episodic Hemorrhage during ; abruptio placenta; placenta previa (1 source) Hemorrhage in early , unspecified; Translations: [Hemorrhage in early , unspecified] Onset: 4 Episodic Other complications of (2 sources) Gastroesophageal reflux disease in ; Translations: [Diseases of the digestive system complicating , unspecified trimester] 07-07-2024 Episodic Other endocrine disorders (1 source) Endocrine disorder, unspecified; Translations: [Endocrine disorder, unspecified] Onset: 4 Episodic Other female genital disorders (1 source) Personal history of other diseases of the female genital tract; Translations: [Personal history of other diseases of the female genital tract] Onset: 4 Episodic Other gastrointestinal disorders (2 sources) Bariatric surgery status; Translations: [Bariatric surgery status] Onset: 2 Episodic Other gastrointestinal disorders (1 source) Diarrhea, unspecified; Translations: [Diarrhea, unspecified] Onset: 4 Episodic Other nutritional; endocrine; and metabolic disorders (1 source) Overweight; Translations: [Overweight] Onset: 4 Episodic Residual codes; unclassified (2 sources) Acquired absence of other specified parts of digestive tract; Translations: [Acquired absence of other specified parts of digestive tract] Onset: 4 Episodic Residual codes; unclassified (2 sources) Gestation period, 13 weeks; Translations: [13 weeks gestation of ] 07-07-2024 Episodic Residual codes; unclassified (1 source) Less than 8 weeks gestation of ; Translations: [Less than 8 weeks gestation of ] Onset: 4 Episodic Unclassified (2 sources) Onset: 1 04-17-2021 Results Test Name Value Interpretation Reference Range Facility Urinalysis macro (dipstick) panel (U)on 12-02-2024 Bilirubin, UA Negative Negative - 4(70) +++ mg/dL [facility] Blood, UA Negative Negative - 50 Nathanael/mcL [facility] Clarity, UA Clear [facility] Color, UA Yellow [facility] Glucose, UA Negative Negative - 1999(110) ++++ mg/dL [facility] Interpretation and review of laboratory results Abnormal [facility] Ketones, UA Negative Negative - 160(16) ++++ mg/dL [facility] Leukocytes, UA Trace Negative - 500+++ Annie/mcL [facility] Nitrite, UA Negative Negative - Positive [facility] pH, UA 7 5 - [address] [facility] Protein, UA Trace Negative - 1999(20) ++++ mg/dL [facility] Spec Grav, UA 1.025 1 - 1.03 [facility] Urobilinogen, UA 1.0 0.2 - 12 mg/dL [facility] Urinalysis macro (dipstick) panel (U)on 11-18-2024 Bilirubin, UA Negative Negative - 4(70) +++ mg/dL [facility] Blood, UA Negative Negative - 50 Nathanael/mcL [facility] Clarity, UA Clear [facility] Color, UA Yellow [facility] Glucose, UA Negative Negative - 1999(110) ++++ mg/dL [facility] Interpretation and review of laboratory results Abnormal [facility] Ketones, UA Negative Negative - 160(16) ++++ mg/dL [facility] Leukocytes, UA Trace Negative - 500+++ Annie/mcL [facility] Nitrite, UA Negative Negative - Positive [facility] pH, UA 6.5 5 - 9 [facility] Protein, UA Negative Negative - 1999(20) ++++ mg/dL [facility] Spec Grav, UA 1.025 1 - 1.03 [facility] Urobilinogen, UA 0.2 0.2 - 12 mg/dL [facility] CBC AND AUTO DIFFon 11-11-19 25 ABSOLUTE BASOPHIL 0.0 X10E9/L Normal 0.0-0.2 [facility] Comment on above: Performed By: #### 3 8476-8 #### [facility] ([id number]) [address] [place] [address] #### 2839-9 #### [facility] ([id number]) [address], [address] [place] [address] ABSOLUTE NEUTROPHIL 7.2 X10E9/L High 1.5-6.6 [facility] Comment on above: Performed By: #### 3 8476-8 #### [facility] ([id number]) [address] [place] [address] #### 2839-9 #### [facility] ([id number]) [address], [address] [place] [address] Basophils/100 WBC (Bld) 0.3 % Normal [facility] Comment on above: Performed By: #### 3 8476-8 #### [facility] ([id number]) [address] [place] [address] #### 2839-9 #### [facility] ([id number]) [address], [address] [place] [address] Eosinophils (Bld) [#/Vol] 0.3 10*3/uL Normal 0.0-0.4 [facility] Comment on above: Performed By: #### 3 8476-8 #### [facility] ([id number]) [address] [place] [address] #### 2839-9 #### [facility] ([id number]) [address], [address] [place] [address] Eosinophils/100 WBC (Bld) 2.9 % Normal [facility] Comment on above: Performed By: #### 3 8476-8 #### [facility] ([id number]) [address] [place] [address] #### 2839-9 #### [facility] ([id number]) [address], [address] [place] [address] Erythrocyte distribution width (RBC) [Ratio] 12.5 % Normal 11.5-15.0 [facility] Comment on above: Performed By: #### 3 8476-8 #### [facility] ([id number]) [address] [place] [address] #### 2839-9 #### [facility] ([id number]) [address], [address] [place] [address] Hematocrit (Bld) [Volume fraction] 36.8 % Normal 35-47 [facility] Comment on above: Performed By: #### 3 8476-8 #### [facility] ([id number]) [address] [place] [address] #### 2839-9 #### [facility] ([id number]) [address] [place] [address] Hemoglobin (Bld) [Mass/Vol] 12.7 g/dL Normal 11.7-15.5 [facility] Comment on above: Performed By: #### 3 8476-8 #### [facility] ([id number]) [address] [place] [address] #### 2839-9 #### [facility] ([id number]) [address], [address] [place] [address] Lymphocytes (Bld) [#/Vol] 1.9 10*3/uL Normal 1.0-3.5 [facility] Comment on above: Performed By: #### 3 8476-8 #### [facility] ([id number]) [address] [place] [address] #### 2839-9 #### [facility] ([id number]) [address], [address] [place] [address] Lymphocytes/100 WBC (Bld) 18.7 % Normal [facility] Comment on above: Performed By: #### 3 8476-8 #### [facility] ([id number]) [address] [place] [address] #### 2839-9 #### [facility] ([id number]) [address] [place] [address] MCH (RBC) [Entitic mass] 32.5 pg Normal 27-34 [facility] Comment on above: Performed By: #### 3 8476-8 #### [facility] ([id number]) [address] [place] [address] #### 2839-9 #### [facility] ([id number]) [address] [place] [address] MCHC (RBC) [Mass/Vol] 34.5 g/dL Normal 32-36 [facility] Comment on above: Performed By: #### 3 8476-8 #### [facility] ([id number]) [address] [place] [address] #### 2839-9 #### [facility] ([id number]) [address] [place] [address] MCV (RBC) [Entitic vol] 94 fL Normal 80-100 [facility] Comment on above: Performed By: #### 3 8476-8 #### [facility] ([id number]) [address] [place] [address] #### 2839-9 #### [facility] ([id number]) [address] [place] [address] Monocytes (Bld) [#/Vol] 0.6 10*3/uL Normal 0-0.9 [facility] Comment on above: Performed By: #### 3 8476-8 #### [facility] ([id number]) [address] [place] [address] #### 2839-9 #### [facility] ([id number]) [address] [place] [address] Monocytes/100 WBC (Bld) 6.4 % Normal [facility] Comment on above: Performed By: #### 3 8476-8 #### [facility] ([id number]) [address] [place] [address] #### 2839-9 #### [facility] ([id number]) [address] [place] [address] Neutrophils/100 WBC (Bld) 71.7 % Normal [facility] Comment on above: Performed By: #### 3 8476-8 #### [facility] ([id number]) [address] [place] [address] #### 2839-9 #### [facility] ([id number]) [address] [place] [address] Platelet mean volume (Bld) [Entitic vol] 7.3 fL Normal 7-12 [facility] Comment on above: Performed By: #### 3 8476-8 #### [facility] ([id number]) [address] [place] [address] #### 2839-9 #### [facility] ([id number]) [address] [place] [address] Platelets (Bld) [#/Vol] 218 10*3/uL Normal 150-450 [facility] Comment on above: Performed By: #### 3 8476-8 #### [facility] ([id number]) [address] [place] [address] #### 2839-9 #### [facility] ([id number]) [address] [place] [address] RBC COUNT 3.89 X10E12/L Normal 3.80-5.20 [facility] Comment on above: Performed By: #### 3 8476-8 #### [facility] ([id number]) [address] [place] [address] #### 2839-9 #### [facility] ([id number]) [address] [place] [address] WBC (Bld) [#/Vol] 10.1 10*3/uL Normal 4.0-11.0 [facility] Comment on above: Performed By: #### 3 8476-8 #### [facility] ([id number]) [address] [place] [address] #### 2839-9 #### [facility] ([id number]) [address] [place] [address] CBC W Auto Differential pane l (Bld)on 11-11-2024 ABSOLUTE BASOPHIL 0 [facility] Comment on above: PERFORMED AT [facility] [address],[place] [address] Basophils/100 WBC (Bld) 0.3 % [facility] Eosinophils (Bld) [#/Vol] 0.3 10*3/uL [facility] Eosinophils/100 WBC (Bld) 2.9 % [facility] Erythrocyte distribution width (RBC) [Ratio] 12.5 % 11.5 - 15.0 % [facility] Hematocrit (Bld) [Volume fraction] 36.8 % 35 - 47 % [facility] Hemoglobin (Bld) [Mass/Vol] 12.7 g/dL 11.7 - 15.5 g/dL [facility] Interpretation and review of laboratory results Abnormal [facility] Lymphocytes (Bld) [#/Vol] 1.9 10*3/uL [facility] Lymphocytes/100 WBC (Bld) 18.7 % [facility] MCH (RBC) [Entitic mass] 32.5 pg 27 - 34 pg [facility] MCHC (RBC) [Mass/Vol] 34.5 g/dL 32 - 36 g/dL [facility] MCV (RBC) [Entitic vol] 94 fL 80 - 100 fL [facility] Monocytes (Bld) [#/Vol] 0.6 10*3/uL [facility] Monocytes/100 WBC (Bld) 6.4 % [facility] Neutrophils (Bld) [#/Vol] 7.2 10*3/uL High [facility] Neutrophils/100 WBC (Bld) 71.7 % [facility] Platelet mean volume (Bld) [Entitic vol] 7.3 fL 7 - 12 fL [facility] Platelets (Bld) [#/Vol] 218 10*3/uL [facility] RBC (Bld) [#/Vol] 3.89 10*6/uL [facility] WBC corrected for nucl RBC Auto (Bld) [#/Vol] 10.1 [facility] Urinalysis macro (dipstick) panel (U)on 11-04-2024 Bilirubin, UA Negative Negative - 4(70) +++ mg/dL [facility] Blood, UA Negative Negative - 50 Nathanael/mcL [facility] Clarity, UA Clear [facility] Color, UA Yellow [facility] Glucose, UA Negative Negative - 1999(110) ++++ mg/dL [facility] Interpretation and review of laboratory results Abnormal [facility] Ketones, UA Negative Negative - 160(16) ++++ mg/dL [facility] Leukocytes, UA Trace Negative - 500+++ Annie/mcL [facility] Nitrite, UA Negative Negative - Positive [facility] pH, UA 6 5 - 9 [facility] Protein, UA Positive Negative - 1999(20) ++++ mg/dL [facility] Comment on above: trace Spec Grav, UA 1.03 1 - 1.03 [facility] Urobilinogen, UA 0.2 0.2 - 12 mg/dL [facility] Urinalysis macro (dipstick) panel (U)on 10-22-2024 Bilirubin, UA Negative Negative - 4(70) +++ mg/dL [facility] Blood, UA Negative Negative - 50 Nathanael/mcL [facility] Clarity, UA Clear [facility] Color, UA Yellow [facility] Glucose, UA Negative Negative - 1999(110) ++++ mg/dL [facility] Interpretation and review of laboratory results Abnormal [facility] Ketones, UA Negative Negative - 160(16) ++++ mg/dL [facility] Leukocytes, UA Positive Negative - 500+++ Annie/mcL [facility] Comment on above: small Nitrite, UA Negative Negative - Positive [facility] pH, UA 6.5 5 - 9 [facility] Protein, UA Negative Negative - 1999(20) ++++ mg/dL [facility] Spec Grav, UA 1.025 1 - 1.03 [facility] Urobilinogen, UA 1.0 0.2 - 12 mg/dL [facility] Urinalysis macro (dipstick) panel (U)on 09-29-2024 Bilirubin, UA Negative Negative - 4(70) +++ mg/dL [facility] Blood, UA Negative Negative - 50 Nathanael/mcL [facility] Clarity, UA Clear [facility] Color, UA Yellow [facility] Glucose, UA Negative Negative - 1999(110) ++++ mg/dL [facility] Interpretation and review of laboratory results Normal [facility] Ketones, UA Negative Negative - 160(16) ++++ mg/dL [facility] Leukocytes, UA Negative Negative - 500+++ Annie/mcL [facility] Nitrite, UA Negative Negative - Positive [facility] pH, UA 7 5 - 9 [facility] Protein, UA Negative Negative - 1999(20) ++++ mg/dL [facility] Spec Grav, UA 1.025 1 - 1.03 [facility] Urobilinogen, UA 1.0 0.2 - 12 mg/dL [facility] Urinalysis macro (dipstick) panel (U)on 09-01-2024 Bilirubin, UA Negative Negative - 4(70) +++ mg/dL [facility] Blood, UA Negative Negative - 50 Nathanael/mcL [facility] Clarity, UA Clear [facility] Color, UA Yellow [facility] Glucose, UA Negative Negative - 2000(110) ++++ mg/dL [facility] Interpretation and review of laboratory results Abnormal [facility] Ketones, UA Negative Negative - 160(16) ++++ mg/dL [facility] Leukocytes, UA Trace Negative - 500+++ Annie/mcL [facility] Nitrite, UA Negative Negative - Positive [facility] pH, UA 6 5 - 9 [facility] Protein, UA Negative Negative - 2000(20) ++++ mg/dL [facility] Spec Grav, UA 1.03 1 - 1.03 [facility] Urobilinogen, UA 0.2 0.2 - 12 mg/dL [facility] CBC AND AUTO DIFFon 10-30-20 24 ABSOLUTE BASOPHIL 0.0 X10E9/L Normal 0.0-0.2 [facility] Comment on above: Performed By: #### 3 8476-8 #### [facility] ([id number]) [address] [place] [address] #### 2839-9 #### [facility] ([id number]) [address], [address] [place] [address] ABSOLUTE NEUTROPHIL 5.8 X10E9/L Normal 1.5-6.6 [facility] Comment on above: Performed By: #### 3 8476-8 #### [facility] ([id number]) [address] [place] [address] 61169 #### 2839-9 #### [facility] ([id number]) [address] [address], [address] [place] [address] Basophils/100 WBC (Bld) 0.2 % Normal [facility] Comment on above: Performed By: #### 3 8476-8 #### [facility] ([id number]) [address] [place] [address] 98905 #### 2839-9 #### [facility] ([id number]) [address], [address] [place] [address] Eosinophils (Bld) [#/Vol] 0.2 10*3/uL Normal 0.0-0.4 [facility] Comment on above: Performed By: #### 3 8476-8 #### [facility] ([id number]) [address] [place] [address] 50684 #### 2839-9 #### [facility] ([id number]) [address], [address] [place] [address] Eosinophils/100 WBC (Bld) 2.9 % Normal [facility] Comment on above: Performed By: #### 3 8476-8 #### [facility] ([id number]) [address] [place] [address] 55797 #### 2839-9 #### [facility] ([id number]) [address], [address] [place] [address] Erythrocyte distribution width (RBC) [Ratio] 13.0 % Normal 11.5-15.0 [facility] Comment on above: Performed By: #### 3 8476-8 #### [facility] ([id number]) [address] [place] [address] 71100 #### 2839-9 #### [facility] ([id number]) [address], [address] [place] [address] Hematocrit (Bld) [Volume fraction] 31.5 % Low 35-47 [facility] Comment on above: Performed By: #### 3 8476-8 #### [facility] ([id number]) [address] [place] [address] 76872 #### 2839-9 #### [facility] ([id number]) [address], [address] [place] [address] Hemoglobin (Bld) [Mass/Vol] 10.8 g/dL Low 11.7-15.5 [facility] Comment on above: Performed By: #### 3 8476-8 #### [facility] ([id number]) [address] [place] [address] 63668 #### 2839-9 #### [facility] ([id number]) [address], [address] [place] [address] Lymphocytes (Bld) [#/Vol] 1.3 10*3/uL Normal 1.0-3.5 [facility] Comment on above: Performed By: #### 3 8476-8 #### [facility] ([id number]) [address] [place] [address] 66169 #### 2839-9 #### [facility] ([id number]) [address], [address] [place] [address] Lymphocytes/100 WBC (Bld) 16.5 % Normal [facility] Comment on above: Performed By: #### 3 8476-8 #### [facility] ([id number]) [address] [place] [address] 71391 #### 2839-9 #### [facility] ([id number]) [address], [address] [place] [address] MCH (RBC) [Entitic mass] 32.6 pg Normal 27-34 [facility] Comment on above: Performed By: #### 3 8476-8 #### [facility] ([id number]) [address] [place] [address] 46399 #### 2839-9 #### [facility] ([id number]) [address], [address] [place] [address] MCHC (RBC) [Mass/Vol] 34.4 g/dL Normal 32-36 [facility] Comment on above: Performed By: #### 3 8476-8 #### [facility] ([id number]) [address] [place] [address] 95835 #### 2839-9 #### [facility] ([id number]) [address], [address] [place] [address] MCV (RBC) [Entitic vol] 95 fL Normal 80-100 [facility] Comment on above: Performed By: #### 3 8476-8 #### [facility] ([id number]) [address] [place] [address] 96487 #### 2839-9 #### [facility] ([id number]) [address], [address] [place] [address] Monocytes (Bld) [#/Vol] 0.6 10*3/uL Normal 0-0.9 [facility] Comment on above: Performed By: #### 3 8476-8 #### [facility] ([id number]) [address] [place] [address] 84737 #### 2839-9 #### [facility] ([id number]) [address], [address] [place] [address] Monocytes/100 WBC (Bld) 8.0 % Normal [facility] Comment on above: Performed By: #### 3 8476-8 #### [facility] ([id number]) [address] [place] [address] 44831 #### 2839-9 #### [facility] ([id number]) [address], [address] [place] [address] Neutrophils/100 WBC (Bld) 72.4 % Normal [facility] Comment on above: Performed By: #### 3 8476-8 #### [facility] ([id number]) [address] [place] [address] 65590 #### 2839-9 #### [facility] ([id number]) [address], [address] [place] [address] Platelet mean volume (Bld) [Entitic vol] 6.7 fL Low 7-12 [facility] Comment on above: Performed By: #### 3 8476-8 #### [facility] ([id number]) [address] [place] [address] 21329 #### 2839-9 #### [facility] ([id number]) [address], [address] [place] [address] Platelets (Bld) [#/Vol] 188 10*3/uL Normal 150-450 [facility] Comment on above: Performed By: #### 3 8476-8 #### [facility] ([id number]) [address] [place] [address] 68115 #### 2839-9 #### [facility] ([id number]) [address], [address] [place] [address] RBC COUNT 3.33 X10E12/L Low 3.80-5.20 [facility] Comment on above: Performed By: #### 3 8476-8 #### [facility] ([id number]) [address] [place] [address] 94706 #### 2839-9 #### [facility] ([id number]) [address], [address] [place] [address] WBC (Bld) [#/Vol] 8.0 10*3/uL Normal 4.0-11.0 [facility] Comment on above: Performed By: #### 3 8476-8 #### [facility] ([id number]) [address] [place] [address] 41736 #### 2839-9 #### [facility] ([id number]) [address], [address] [place] [address] COMPREHENSIVE METABOLIC PANE [facility] 08-26-2024 Albumin [Mass/Vol] 2.9 g/dL Low 3.2-5.3 [facility] Comment on above: Performed By: #### 3 8476-8 #### [facility] ([id number]) [address] [place] [address] 56229 #### 2839-9 #### [facility] ([id number]) [address], [address] [place] [address] ALP [Catalytic activity/Vol] 34 U/L Low 39-130 [facility] Comment on above: Performed By: #### 3 8476-8 #### [facility] ([id number]) [address] [place] [address] 73455 #### 2839-9 #### [facility] ([id number]) [address], [address] [place] [address] ALT [Catalytic activity/Vol] 45 U/L High 0-31 [facility] Comment on above: Performed By: #### 3 8476-8 #### [facility] ([id number]) [address] [place] [address] 69700 #### 2839-9 #### [facility] ([id number]) [address], [address] [place] [address] Anion gap [Moles/Vol] 5 mmol/L Normal 5-15 [facility] Comment on above: Performed By: #### 3 8476-8 #### [facility] ([id number]) [address] [place] [address] 94299 #### 2839-9 #### [facility] ([id number]) [address], [address] [place] [address] AST [Catalytic activity/Vol] 44 U/L High 0-41 [facility] Comment on above: Performed By: #### 3 8476-8 #### [facility] ([id number]) [address] [place] [address] 65118 #### 2839-9 #### [facility] ([id number]) [address], [address] [place] [address] Bilirubin [Mass/Vol] 0.4 mg/dL Normal 0.3-1.2 [facility] Comment on above: Performed By: #### 3 8476-8 #### [facility] ([id number]) [address] [place] [address] 62747 #### 2839-9 #### [facility] ([id number]) [address], [address] [place] [address] Calcium [Mass/Vol] 8.4 mg/dL Low 8.5-10.5 [facility] Comment on above: Performed By: #### 3 8476-8 #### [facility] ([id number]) [address] [place] [address] 45686 #### 2839-9 #### [facility] ([id number]) [address], [address] [place] [address] Chloride [Moles/Vol] 105 mmol/L Normal 98-109 [facility] Comment on above: Performed By: #### 3 8476-8 #### [facility] ([id number]) [address] [place] [address] 69318 #### 2839-9 #### [facility] ([id number]) [address], [address] [place] [address] CO2 [Moles/Vol] 23 mmol/L Normal 22-32 [facility] Comment on above: Performed By: #### 3 8476-8 #### [facility] ([id number]) [address] [place] [address] 25841 #### 2839-9 #### [facility] ([id number]) [address], [address] [place] [address] Creatinine [Mass/Vol] 0.68 mg/dL Normal 0.40-1.00 [facility] Comment on above: Result Comment: METH OD TRACEABLE TO IDMS STANDARD Performed By: #### 3 8476-8 #### [facility] ([id number]) [address] [place] [address] 96396 #### 2839-9 #### [facility] ([id number]) [address] [facility], [address] [address] eGFR (CKD-EPI) NON-RACE DEPENDENT >90 Normal >59 [facility] Comment on above: Result Comment: Reported eGFR is based on the CKD-EPI 2020 equation that does not use a race coefficient. Performed By: #### 3 8476-8 #### [facility] ([id number]) [address] [place] [address] 51605 #### 2839-9 #### [facility] ([id number]) [address], [address] [address] Glucose [Mass/Vol] 80 mg/dL Normal 65-99 [facility] Comment on above: Performed By: #### 3 8476-8 #### [facility] ([id number]) [address] [place] [address] 98180 #### 2839-9 #### [facility] ([id number]) [address] [address], [address] [place] [address] Potassium [Moles/Vol] 3.9 mmol/L Normal 3.5-5.0 [facility] Comment on above: Performed By: #### 3 8476-8 #### [facility] ([id number]) [address] [place] [address] 77740 #### 2839-9 #### [facility] ([id number]) [address], [address] [place] [address] Protein [Mass/Vol] 5.8 g/dL Low 6.0-8.0 [facility] Comment on above: Performed By: #### 3 8476-8 #### [facility] ([id number]) [address] [place] [address] 74500 #### 2839-9 #### [facility] ([id number]) [address], [address] [place] [address] Sodium [Moles/Vol] 133 mmol/L Low 134-146 [facility] Comment on above: Performed By: #### 3 8476-8 #### [facility] ([id number]) [address] [place] [address] 75278 #### 2839-9 #### [facility] ([id number]) [address], [address] [place] [address] Urea nitrogen [Mass/Vol] 15 mg/dL Normal 5-23 [facility] Comment on above: Performed By: #### 3 8476-8 #### [facility] ([id number]) [address] [place] [address] 98274 #### 2839-9 #### [facility] ([id number]) [address], [address] [place] [address] LIPASEon 08-26-2024 Lipase [Catalytic activity/Vol] 36 U/L Normal 17-40 [facility] Comment on above: Performed By: #### 3 8476-8 #### [facility] ([id number]) [address] [place] [address] 59904 #### 2839-9 #### [facility] ([id number]) [address], [address] [place] [address] MAGNESIUMon 08-26-2024 Magnesium [Mass/Vol] 1.8 mg/dL Normal 1.8-2.6 [facility] Comment on above: Performed By: #### 3 8476-8 #### [facility] ([id number]) [address] [place] [address] 08013 #### 2839-9 #### [facility] ([id number]) [address], [address] [place] [address] Troponin I.cardiac High sens itivity method [Mass/Vol]on 08-26-2024 TROPONIN I, HIGH SENSITIVITY <2 Normal <16 [facility] Comment on above: Performed By: #### 3 8476-8 #### [facility] ([id number]) [address] [place] [address] 08961 #### 2839-9 #### [facility] ([id number]) [address] [address], [address] [place] [address] THYROID PROFILEon 08-15-2024 Free T4 [Mass/Vol] 0.89 ng/dL Normal 0.61-1.60 [facility] Comment on above: Performed By: #### 3 8476-8 #### [facility] ([id number]) [address] [place] [address] 44031 #### 2839-9 #### [facility] ([id number]) [address] [address], [address] [place] [address] TSH 3.03 uIU/mL Normal 0.49-4.67 [facility] Comment on above: Performed By: #### 3 8476-8 #### [facility] ([id number]) [address] [place] [address] 68710 #### 2839-9 #### [facility] ([id number]) [address] [address], [address] [place] [address] URETHRITIS/DISCHARGE PLUS VA GINITIS (HTRX)on 08-04-2024 ATOPOBIUM VAGINAE 0.[address] [facility] ATOPOBIUM VAGINAE Not detected [facility] BVAB 2,3 (BACTERIAL VAGINOSIS ASSOCIATED BACTERIA 2, 3); MOBILUNCUS SPP 0.000 [facility] BVAB 2,3 (BACTERIAL VAGINOSIS ASSOCIATED BACTERIA 2, 3); MOBILUNCUS SPP Not detected [facility] RAZIA ALBICANS, PARAPSILOSIS, TROPICALIS 0.[address] [facility] RAZIA ALBICANS, PARAPSILOSIS, TROPICALIS Not detected [facility] RAZIA GLABRATA 0.[address] [facility] RAZIA GLABRATA Not detected [facility] RAZIA KRUSEI 0.[address] [facility] RAZIA KRUSEI Not detected [facility] CHLAMYDIA TRACHOMATIS 0.000 [facility] CHLAMYDIA TRACHOMATIS Not detected N [facility] GARDNERELLA VAGINALIS 0.000 [facility] GARDNERELLA VAGINALIS Not detected N [facility] MEGASPHAERA (TYPES 1, 2) 0.000 [facility] MEGASPHAERA (TYPES 1, 2) Not detected [facility] MYCOPLASMA GENITALIUM 0.000 [facility] MYCOPLASMA GENITALIUM Not detected N [facility] NEISSERIA GONORRHOEAE 0.000 [facility] NEISSERIA GONORRHOEAE Not detected N [facility] TRICHOMONAS VAGINALIS 0.000 [facility] TRICHOMONAS VAGINALIS Not detected N [facility] Urinalysis macro (dipstick) panel (U)on 08-03-2024 Bilirubin, UA Negative Negative - 4(70) +++ mg/dL [facility] Blood, UA Negative Negative - 50 Nathanael/mcL [facility] Clarity, UA Clear [facility] Color, UA Yellow [facility] Glucose, UA Negative Negative - 1999(110) ++++ mg/dL [facility] Interpretation and review of laboratory results Normal [facility] Ketones, UA Negative Negative - 160(16) ++++ mg/dL [facility] Leukocytes, UA Negative Negative - 500+++ Annie/mcL [facility] Nitrite, UA Negative Negative - Positive [facility] pH, UA 7.0 5 - 9 [facility] Protein, UA Negative Negative - 1999(20) ++++ mg/dL [facility] Spec Grav, UA 1.020 1 - 1.03 [facility] Urobilinogen, UA 1.0 0.2 - 12 mg/dL [facility] THYROID PROFILEon 07-18-2024 Free T4 [Mass/Vol] 0.80 ng/dL Normal 0.61-1.60 [facility] Comment on above: Performed By: #### 3 8476-8 #### [facility] ([id number]) [address] [place] [address], [place] [address] #### 2839-9 #### [facility] ([id number]) [address] [place] [address], [address] [place] [address] TSH 3.22 uIU/mL Normal 0.49-4.67 [facility] Comment on above: Performed By: #### 3 8476-8 #### [facility] ([id number]) [address] [place] [address], [place] [address] #### 2839-9 #### [facility] ([id number]) [address] [place] [address], [address] [place] [address] TSHon 07-18-2024 Free T4 [Mass/Vol] 0.80 ng/dL 0.61 - 1. 60 ng/dL [facility] Comment on above: PERFORMED AT [address],[place] [address] TSH Qn 3.22 m[IU]/L [facility] Urinalysis macro (dipstick) panel (U)on 07-07-2024 Bilirubin, UA Negative Negative - 4(70) +++ mg/dL [facility] Blood, UA Negative Negative - 50 Nathanael/mcL [facility] Clarity, UA Clear [facility] Color, UA Yellow [facility] Glucose, UA Negative Negative - 2000(110) ++++ mg/dL [facility] Joseph Interpretation and review of laboratory results Normal [facility] Ketones, UA Negative Negative - 160(16) ++++ mg/dL [facility] Leukocytes, UA Trace Negative - 500+++ Annie/mcL [facility] Nitrite, UA Negative Negative - Positive [facility] pH, UA 7.0 5 - 9 [facility] Protein, UA Negative Negative - 2000(20) ++++ mg/dL [facility] Spec Grav, UA 1.025 1 - 1.03 [facility] Urobilinogen, UA 0.2 0.2 - 12 mg/dL [facility] TSH ([facility])on 06-20-2024 TSH Qn 2.32 m[IU]/L [facility] Comment on above: PERFORMED AT [facility] [address],[place] [address] [facility] TSH Qnon 06-20-2024 TSH 2.32 uIU/mL Normal 0.49-4.67 [facility] Comment on above: Performed By: #### 3 8476-8 #### [facility] ([id number]) [address] [place] [address] 78336 #### 2839-9 #### [facility] ([id number]) [address] [facility], [address] [place] [address] CBC AND AUTO DIFFon 06-06-20 ABSOLUTE BASOPHIL 0.0 X10E9/L Normal 0.0-0.2 [facility] Comment on above: Performed By: #### 3 8476-8 #### [facility] ([id number]) [address] [place] [address] 04269 #### 2839-9 #### [facility] ([id number]) [address] [facility], [address] [place] [address] ABSOLUTE NEUTROPHIL 4.8 X10E9/L Normal 1.5-6.6 [facility] Comment on above: Performed By: #### 3 8476-8 #### [facility] ([id number]) [address] [place] [address] 41931 #### 2839-9 #### [facility] ([id number]) [address], [address] [place] [address] Basophils/100 WBC (Bld) 0.3 % Normal [facility] Comment on above: Performed By: #### 3 8476-8 #### [facility] ([id number]) [address] [place] [address] 67160 #### 2839-9 #### [facility] ([id number]) [address], [address] [place] [address] Eosinophils (Bld) [#/Vol] 0.4 10*3/uL Normal 0.0-0.4 [facility] Comment on above: Performed By: #### 3 8476-8 #### [facility] ([id number]) [address] [place] [address] 34022 #### 2839-9 #### [facility] ([id number]) [address], [address] [place] [address] Eosinophils/100 WBC (Bld) 5.5 % Normal [facility] Comment on above: Performed By: #### 3 8476-8 #### [facility] ([id number]) [address] [place] [address] 99920 #### 2839-9 #### [facility] ([id number]) [address], [address] [place] [address] Erythrocyte distribution width (RBC) [Ratio] 13.1 % Normal 11.5-15.0 [facility] Comment on above: Performed By: #### 3 8476-8 #### [facility] ([id number]) [address] [place] [address] 04120 #### 2839-9 #### [facility] ([id number]) [address], [address] [place] [address] Hematocrit (Bld) [Volume fraction] 32.4 % Low 35-47 [facility] Comment on above: Performed By: #### 3 8476-8 #### [facility] ([id number]) [address] [place] [address] 95129 #### 2839-9 #### [facility] ([id number]) [address] [facility], [address] [place] [address] Hemoglobin (Bld) [Mass/Vol] 11.2 g/dL Low 11.7-15.5 [facility] Comment on above: Performed By: #### 3 8476-8 #### [facility] ([id number]) [address] [place] [address] 73767 #### 2839-9 #### [facility] ([id number]) [address] [facility], [address] [place] [address] Lymphocytes (Bld) [#/Vol] 1.7 10*3/uL Normal 1.0-3.5 [facility] Comment on above: Performed By: #### 3 8476-8 #### [facility] ([id number]) [address] [place] [address] 92318 #### 2839-9 #### [facility] ([id number]) [address] [place] [address], [address] [place] [address] Lymphocytes/100 WBC (Bld) 21.9 % Normal [facility] Comment on above: Performed By: #### 3 8476-8 #### [facility] ([id number]) [address] [place] [address] 00267 #### 2839-9 #### [facility] ([id number]) [address] [facility], [address] [place] [address] MCH (RBC) [Entitic mass] 31.7 pg Normal 27-34 [facility] Comment on above: Performed By: #### 3 8476-8 #### [facility] ([id number]) [address] [place] [address] 87089 #### 2839-9 #### [facility] ([id number]) [address], [address] [place] [address] MCHC (RBC) [Mass/Vol] 34.5 g/dL Normal 32-36 [facility] Comment on above: Performed By: #### 3 8476-8 #### [facility] ([id number]) [address] [place] [address] 32540 #### 2839-9 #### [facility] ([id number]) [address], [address] [place] [address] MCV (RBC) [Entitic vol] 92 fL Normal 80-100 [facility] Comment on above: Performed By: #### 3 8476-8 #### [facility] ([id number]) [address] [place] [address] 94340 #### 2839-9 #### [facility] ([id number]) [address], [address] [place] [address] Monocytes (Bld) [#/Vol] 0.8 10*3/uL Normal 0-0.9 [facility] Comment on above: Performed By: #### 3 8476-8 #### [facility] ([id number]) [address] [place] [address] 85607 #### 2839-9 #### [facility] ([id number]) [address], [address] [place] [address] Monocytes/100 WBC (Bld) 10.4 % Normal [facility] Comment on above: Performed By: #### 3 8476-8 #### [facility] ([id number]) [address] [place] [address] 36093 #### 2839-9 #### [facility] ([id number]) [address], [address] [place] [address] Neutrophils/100 WBC (Bld) 61.9 % Normal [facility] Comment on above: Performed By: #### 3 8476-8 #### [facility] ([id number]) [address] [place] [address] 81799 #### 2839-9 #### [facility] ([id number]) [address], [address] [place] [address] Platelet mean volume (Bld) [Entitic vol] 6.9 fL Low 7-12 [facility] Comment on above: Performed By: #### 3 8476-8 #### [facility] ([id number]) [address] [place] [address] 56009 #### 2839-9 #### [facility] ([id number]) [address], [address] [place] [address] Platelets (Bld) [#/Vol] 172 10*3/uL Normal 150-450 [facility] Comment on above: Performed By: #### 3 8476-8 #### [facility] ([id number]) [address] [place] [address] 60595 #### 2839-9 #### [facility] ([id number]) [address], [address] [place] [address] RBC COUNT 3.54 X10E12/L Low 3.80-5.20 [facility] Comment on above: Performed By: #### 3 8476-8 #### [facility] ([id number]) [address] [place] [address] 79233 #### 2839-9 #### [facility] ([id number]) [address], [address] [place] [address] WBC (Bld) [#/Vol] 7.7 10*3/uL Normal 4.0-11.0 [facility] Comment on above: Performed By: #### 3 8476-8 #### [facility] ([id number]) [address] [place] [address] 95741 #### 2839-9 #### [facility] ([id number]) [address], [address] [place] [address] COMPREHENSIVE METABOLIC PANE Augustin 06-06-2024 Albumin [Mass/Vol] 3.2 g/dL Normal 3.2-5.3 [facility] Comment on above: Performed By: #### 3 8476-8 #### [facility] ([id number]) [address] [place] [address] 73668 #### 2839-9 #### [facility] ([id number]) [address], [address] [place] [address] ALP [Catalytic activity/Vol] 38 U/L Low 39-130 [facility] Comment on above: Performed By: #### 3 8476-8 #### [facility] ([id number]) [address] [place] [address] 54278 #### 2839-9 #### [facility] ([id number]) [address], [address] [place] [address] ALT [Catalytic activity/Vol] 54 U/L High 0-31 [facility] Comment on above: Performed By: #### 3 8476-8 #### [facility] ([id number]) [address] [place] [address] 52989 #### 2839-9 #### [facility] ([id number]) [address], [address] [place] [address] Anion gap [Moles/Vol] 1 mmol/L Low 5-15 [facility] Comment on above: Performed By: #### 3 8476-8 #### [facility] ([id number]) [address] [place] [address] 30347 #### 2839-9 #### [facility] ([id number]) [address], [address] [place] [address] AST [Catalytic activity/Vol] 35 U/L Normal 0-41 [facility] Comment on above: Performed By: #### 3 8476-8 #### [facility] ([id number]) [address] [place] [address] 22791 #### 2839-9 #### [facility] ([id number]) [address], [address] [place] [address] Bilirubin [Mass/Vol] 0.4 mg/dL Normal 0.3-1.2 [facility] Comment on above: Performed By: #### 3 8476-8 #### [facility] ([id number]) [address] [place] [address] 58007 #### 2839-9 #### [facility] ([id number]) [address], [address] [place] [address] Calcium [Mass/Vol] 8.3 mg/dL Low 8.5-10.5 [facility] Comment on above: Performed By: #### 3 8476-8 #### [facility] ([id number]) [address] [place] [address] 58429 #### 2839-9 #### [facility] ([id number]) [address], [address] [place] [address] Chloride [Moles/Vol] 103 mmol/L Normal 98-109 [facility] Comment on above: Performed By: #### 3 8476-8 #### [facility] ([id number]) [address] [place] [address] 70666 #### 2839-9 #### [facility] ([id number]) [address], [address] [place] [address] CO2 [Moles/Vol] 26 mmol/L Normal 22-32 [facility] Comment on above: Performed By: #### 3 8476-8 #### [facility] ([id number]) [address] [place] [address] 90117 #### 2839-9 #### [facility] ([id number]) [address] [facility], [address] [place] [address] Creatinine [Mass/Vol] 0.64 mg/dL Normal 0.40-1.00 [facility] Comment on above: Result Comment: METH OD TRACEABLE TO IDMS STANDARD Performed By: #### 3 8476-8 #### [facility] ([id number]) [address] [place] [address] 09631 #### 2839-9 #### [facility] ([id number]) [address] [facility], [address] [place] [address] eGFR (CKD-EPI) NON-RACE DEPENDENT >90 Normal >59 [facility] Comment on above: Result Comment: Reported eGFR is based on the CKD-EPI 2020 equation that does not use a race coefficient. Performed By: #### 3 8476-8 #### [facility] ([id number]) [address] [place] [address] 67317 #### 2839-9 #### [facility] ([id number]) [address] [facility], [address] [place] [address] Glucose [Mass/Vol] 79 mg/dL Normal 65-99 [facility] Comment on above: Performed By: #### 3 8476-8 #### [facility] ([id number]) [address] [place] [address] 34424 #### 2839-9 #### [facility] ([id number]) [address] [facility], [address] [place] [address] Potassium [Moles/Vol] 3.7 mmol/L Normal 3.5-5.0 [facility] Comment on above: Performed By: #### 3 8476-8 #### [facility] ([id number]) [address] [place] [address] 17528 #### 2839-9 #### [facility] ([id number]) [address], [address] [place] [address] Protein [Mass/Vol] 6.1 g/dL Normal 6.0-8.0 [facility] Comment on above: Performed By: #### 3 8476-8 #### [facility] ([id number]) [address] [place] [address] 66912 #### 2839-9 #### [facility] ([id number]) [address], [address] [place] [address] Sodium [Moles/Vol] 130 mmol/L Low 134-146 [facility] Comment on above: Performed By: #### 3 8476-8 #### [facility] ([id number]) [address] [place] [address] 13115 #### 2839-9 #### [facility] ([id number]) [address], [address] [place] [address] Urea nitrogen [Mass/Vol] 15 mg/dL Normal 5-23 [facility] Comment on above: Performed By: #### 3 8476-8 #### [facility] ([id number]) [address] [place] [address] 51320 #### 2839-9 #### [facility] ([id number]) [address], [address] [place] [address] HCG.beta subunit IA 3rd IS Q non 06-06-2024 HCG.beta subunit Qn 916162 m[IU]/mL Normal [facility] Comment on above: Result Comment: NEW [...] trophoblastic or nontrophoblastic neoplasms. Performed By: #### 3 8476-8 #### [facility] ([id number]) [address] [place] [address] 00906 #### 2839-9 #### [facility] ([id number]) [address], [address] [place] [address] URN MACROSCOPIC NURon 2023 BILIRUBIN CHLOÉ Negative Normal NEG [facility] Comment on above: Performed By: #### 3 8476-8 #### [facility] ([id number]) [address] [place] [address] 56049 #### 2839-9 #### [facility] ([id number]) [address], [address] [place] [address] BLOOD/HGB CHLOÉ Trace Abnormal NEG [facility] Comment on above: Performed By: #### 3 8476-8 #### [facility] ([id number]) [address] [place] [address] 40512 #### 2839-9 #### [facility] ([id number]) [address], [address] [place] [address] GLUCOSE CHLOÉ Negative Normal NEG [facility] Comment on above: Performed By: #### 3 8476-8 #### [facility] ([id number]) [address] [place] [address] 13756 #### 2839-9 #### [facility] ([id number]) [address] [place] [address] KETONES CHLOÉ Negative Normal NEG [facility] Comment on above: Performed By: #### 3 8476-8 #### [facility] ([id number]) [address] [place] [address] 55580 #### 2839-9 #### [facility] ([id number]) [address], [address] [place] [address] LEUKOCYTE ESTERASE CHLOÉ Negative Normal NEG [facility] Comment on above: Performed By: #### 3 8476-8 #### [facility] ([id number]) [address] [place] [address] 91740 #### 2839-9 #### [facility] ([id number]) [address], [address] [place] [address] NITRITE CHLOÉ Negative Normal NEG [facility] Comment on above: Performed By: #### 3 8476-8 #### [facility] ([id number]) [address] [place] [address] 44518 #### 2839-9 #### [facility] ([id number]) [address] [place] [address] PH CHLOÉ 5.0 Normal 5.0-8.5 [facility] Comment on above: Performed By: #### 3 8476-8 #### [facility] ([id number]) [address] [place] [address] 14156 #### 2839-9 #### [facility] ([id number]) [address], [address] [place] [address] PROTEIN CHLOÉ Negative Normal NEG [facility] Comment on above: Performed By: #### 3 8476-8 #### [facility] ([id number]) [address] [place] [address] 29075 #### 2839-9 #### [facility] ([id number]) [address], [address] [place] [address] SPECIFIC GRAVITY CHLOÉ >=1.030 Normal 1.003-1.[address] [facility] [place] [place] Comment on above: Performed By: #### 3 8476-8 #### [facility] ([id number]) [address] [place] [address] 38700 #### 2839-9 #### [facility] ([id number]) [address], [address] [place] [address] UROBILINOGEN CHLOÉ 0.2 eu/dL Normal <1.1 [facility] Comment on above: Performed By: #### 3 8476-8 #### [facility] ([id number]) [address] [place] [address] 61998 #### 2839-9 #### [facility] ([id number]) [address], [address] [place] [address] HCG ( test) Ql (U)o n 05-27-2024 Beta HCG ( test) Ql (U) Positive Abnormal NEG [facility] Comment on above: Performed By: #### 3 8476-8 #### [facility] ([id number]) [address] [place] [address] 80552 #### 2839-9 #### [facility] ([id number]) [address], [address] [place] [address] URN MACROSCOPIC NURon 2023 BILIRUBIN CHLOÉ Negative Normal NEG [facility] Comment on above: Performed By: #### 3 5365-6, CMP, 3016-3, #### [facility] ([id number]) [address], [address] [place] [address] BLOOD/HGB CHLOÉ Small Abnormal NEG [facility] Comment on above: Performed By: #### 3 5365-6, CMP, 3016-3, 34126-7 #### [facility] ([id number]) [address], [address] [place] [address] GLUCOSE CHLOÉ Negative Normal NEG [facility] Comment on above: Performed By: #### 3 5365-6, CMP, 6-3, #### [facility] ([id number]) [address], [address] [place] [address] KETONES CHLOÉ Negative Normal NEG [facility] Comment on above: Performed By: #### 3 5365-6, [facility], 6-3, #### [facility] ([id number]) [address], [address] [place] [address] LEUKOCYTE ESTERASE CHLOÉ Negative Normal NEG [facility] Comment on above: Performed By: #### 3 5365-6, CMP, 6-3, #### [facility] ([id number]) [address], [address] [place] [address] NITRITE CHLOÉ Negative Normal NEG [facility] Comment on above: Performed By: #### 3 5365-6, CMP, 3015-3, #### [facility] ([id number]) [address], [address] [place] [address] PH CHLOÉ 5.5 Normal 5.0-8.5 [facility] Comment on above: Performed By: #### 3 5365-6, CMP, 6-3, 04211-5 #### [facility] ([id number]) [address], [address] [place] [address] PROTEIN CHLOÉ Negative Normal NEG [facility] Comment on above: Performed By: #### 3 5365-6, CMP, 3016-3, 60217-4 #### [facility] ([id number]) [address], [address] [place] [address] SPECIFIC GRAVITY CHLOÉ >=1.030 Normal 1.003-1.035 [facility] Comment on above: Performed By: #### 3 5365-6, CMP, 6-3, 76800-0 #### [facility] ([id number]) [address], [address] [place] [address] UROBILINOGEN CHLOÉ 1.0 eu/dL Normal <1.1 [facility] Comment on above: Performed By: #### 3 5365-6, [facility], 6-3, 51600-6 #### [facility] ([id number]) [address], [address] [place] [address] HCG.beta subunit IA 3rd IS Q non 05-14-2024 [place] [address] m[IU]/mL Normal P [facility] Comment on above: Result Comment: [...] trophoblastic or nontrophoblastic neoplasms. Performed By: #### 3 5365-6, CMP, 3016-3, 85996-2 #### [facility] ([id number]) [address] [facility], [address] [place] [address] HCG.beta subunit IA 3rd IS Q non 05-11-2024 [place] [address] m[IU]/mL Normal P [facility] Comment on above: Result Comment: [...] trophoblastic or nontrophoblastic neoplasms. Performed By: #### 3 5365-6, [facility], 3016-3, 14602-9 #### [facility] ([id number]) [address] [facility], [address] [place] [address] TSH Qnon 05-11-2024 TSH 1.06 uIU/mL Normal 0.49-4.67 [facility] Comment on above: Performed By: #### 3 5365-6, [facility], 3016-3, 96198-8 #### [facility] ([id number]) [address] [address] [place] [address] HCG.beta subunit IA 3rd IS Q non 05-08-2024 HCG.beta subunit Qn 6446 m[IU]/mL Normal [facility] Comment on above: Result Comment: [...] trophoblastic or nontrophoblastic neoplasms. Performed By: #### 3 5365-6, [facility], 8806-3 77299-9 #### [facility] ([id number]) [address] [place] [address], [address] [place] [address] HCG.beta subunit IA 3rd IS Q non 05-06-2024 HCG.beta subunit Qn 3140 m[IU]/mL Normal Pr [facility] Comment on above: Result Comment: [...] trophoblastic or nontrophoblastic neoplasms. Performed By: #### 3 5365-6, [facility], 3016-3, 36447-1 #### [facility] ([id number]) [address] [place] [address], [address] [place] [address] HCG.beta subunit IA 3rd IS Q non 05-01-2024 HCG.beta subunit Qn 560 m[IU]/mL Normal [facility] Comment on above: Result Comment: NEW [...] trophoblastic or nontrophoblastic neoplasms. Performed By: #### 3 5365-6, [facility], 3016-3, 96178-1 #### [facility] ([id number]) [address] [place] [address], [address] [place] [address] HCG.beta subunit IA 3rd IS Q non 04-28-2024 HCG.beta subunit Qn 159 m[IU]/mL Normal [facility] Comment on above: Result Comment: NEW [...] trophoblastic or nontrophoblastic neoplasms. Performed By: #### 3 5365-6, [facility], [facility]6-3, 67090-2 #### [facility] ([id number]) [address], [address] [place] [address] FREE T3on 02-14-2024 Free T3 [Mass/Vol] 3.94 pg/mL High 2.50-3.90 [facility] Comment on above: Performed By: #### 3 5365-6, [facility], [facility], 85506-8 #### [facility] ([id number]) [address], [address] [place] [address] THYROID PROFILEon 02-14-2024 Free T4 [Mass/Vol] 0.91 ng/dL Normal 0.61-1.60 [facility] Comment on above: Performed By: #### 3 5365-6, [facility], [facility], 69072-4 #### [facility] ([id number]) [address], [address] [place] [address] TSH 0.52 uIU/mL Normal 0.49-4.67 [facility] Comment on above: Performed By: #### 3 5365-6, [facility], [facility], 66524-2 #### [facility] ([id number]) [address], [facility] [[email or web address]] [address] [place] [address] THYROPEROXIDASE ABon 024 TPO Ab Qn 403 [IU]/mL High <10 [facility] Comment on above: Performed By: #### 3 5365-6, [facility], [facility], 60055-0 #### [facility] ([id number]) [address], [address] [place] [address] Thyroid stimulating immunogl obulins Qn (S)on 02-14-2024 TSI See Below Normal [facility] Comment on above: Result Comment: NOTE TEST [...] Clinical correlation is required. Test Performed By: [facility] agreement24 avtal[address] [place] [address] Fur Dyer: Eloy Dangelo III, M.D. CLIA #[id number] Performed By: #### 3 5365-6, [facility], 6-3, 20776-8 #### [facility] ([id number]) [address], [address] [place] [address] ACUTE HEPATITIS PANELon 12-27 ANTI HCV W/PCR REFLX Non-Reactive Normal NRCT [facility] Comment on above: Result Comment: If recent infection suspected, recommend repeat testing (>2 months). Kdreux-er-iytgpl ratio is <0.80. Performed By: #### 3 5365-6, [facility], 3016-3, 74190-9 #### [facility] ([id number]) [address], [address] [place] [address] HEPATITIS A IGM Non-Reactive Normal NRCT [facility] Comment on above: Performed By: #### 3 5365-6, [facility], 6-3, 55652-7 #### [facility] ([id number]) [address], [address] [place] [address] HEPATITIS B CORE IGM Negative Normal NEG [facility] Comment on above: Performed By: #### 3 5365-6, [facility], 6-3, 39317-5 #### [facility] ([id number]) [address], [address] [place] [address] HEPATITIS B SURF AG Negative Normal NEG [facility] Comment on above: Performed By: #### 3 5365-6, CMP, 3016-3, 56112-0 #### [facility] ([id number]) [address], [address] [place] [address] COMPREHENSIVE METABOLIC PANE Augustin 2024 Albumin [Mass/Vol] 3.8 g/dL Normal 3.2-5.3 [facility] Comment on above: Performed By: #### 3 5365-6, CMP, 3016-3, 98348-6 #### [facility] ([id number]) [address], [address] [place] [address] ALP [Catalytic activity/Vol] 48 U/L Normal 39-130 [facility] Comment on above: Performed By: #### 3 5365-6, CMP, 3016-3, 69141-9 #### [facility] ([id number]) [address], [address] [place] [address] ALT [Catalytic activity/Vol] 38 U/L High 0-31 [facility] Comment on above: Performed By: #### 3 5365-6, CMP, 3016-3, 13228-0 #### [facility] ([id number]) [address], [address] [place] [address] Anion gap [Moles/Vol] 9 mmol/L Normal 5-15 [facility] Comment on above: Performed By: #### 3 5365-6, CMP, 3016-3, 19806-7 #### [facility] ([id number]) [address], [address] [place] [address] AST [Catalytic activity/Vol] 32 U/L Normal 0-41 [facility] Comment on above: Performed By: #### 3 5365-6, CMP, 3016-3, 81995-8 #### [facility] ([id number]) [address], [address] [place] [address] Bilirubin [Mass/Vol] 0.9 mg/dL Normal 0.3-1.2 [facility] Comment on above: Performed By: #### 3 5365-6, [facility], 3016-3, 00855-9 #### [facility] ([id number]) [address], [address] [place] [address] Calcium [Mass/Vol] 8.8 mg/dL Normal 8.5-10.5 [facility] Comment on above: Performed By: #### 3 5365-6, [facility], 6-3, 12877-0 #### [facility] ([id number]) [address], [address] [place] [address] Chloride [Moles/Vol] 104 mmol/L Normal 98-109 [facility] Comment on above: Performed By: #### 3 5365-6, [facility], 6-3, #### [facility] ([id number]) [address], [address] [place] [address] CO2 [Moles/Vol] 26 mmol/L Normal 22-32 [facility] Comment on above: Performed By: #### 3 5365-6, [facility], 6-3, 19301-0 #### [facility] ([id number]) [address], [address] [place] [address] Creatinine [Mass/Vol] 0.64 mg/dL Normal 0.40-1.00 [facility] Comment on above: Result Comment: METH OD TRACEABLE TO IDMS STANDARD Performed By: #### 3 5365-6, [facility], 6-3, #### [facility] ([id number]) [address], [address] [place] [address] eGFR (CKD-EPI) NON-RACE DEPENDENT >90 Normal >59 [facility] Comment on above: Result Comment: Reported eGFR is based on the CKD-EPI 2020 equation that does not use a race coefficient. Performed By: #### 3 5365-6, [facility], 3016-3, 29237-4 #### [facility] ([id number]) [address], [address] [place] [address] Glucose [Mass/Vol] 80 mg/dL Normal 65-99 [facility] Comment on above: Performed By: #### 3 5365-6, [facility], 3016-3, 07776-8 #### [facility] ([id number]) [address], [address] [place] [address] Potassium [Moles/Vol] 3.7 mmol/L Normal 3.5-5.0 [facility] Comment on above: Performed By: #### 3 5365-6, [facility], 3016-3, #### [facility] ([id number]) [address], [address] [place] [address] Protein [Mass/Vol] 6.8 g/dL Normal 6.0-8.0 [facility] Comment on above: Performed By: #### 3 5365-6, [facility], 3016-3, 50934-7 #### [facility] ([id number]) [address], [address] [place] [address] Sodium [Moles/Vol] 139 mmol/L Normal 134-146 [facility] Comment on above: Performed By: #### 3 5365-6, [facility], 3016-3, #### [facility] ([id number]) [address] [address] [place] [address] Urea nitrogen [Mass/Vol] 11 mg/dL Normal 5-23 [facility] Comment on above: Performed By: #### 3 5365-6, [facility], 3016-3, 40344-5 #### [facility] ([id number]) [address], [address] [place] [address] Lipid 1996 panelon 4 Cholesterol [Mass/Vol] 94 mg/dL Low 150-200 [facility] Comment on above: Performed By: #### 3 5365-6, [facility], 6-3, 40854-7 #### [facility] ([id number]) [address], [address] [place] [address] Cholesterol in HDL [Mass/Vol] 43 mg/dL Normal >39 [facility] Comment on above: Result Comment: HDL <40 mg/dL - High Risk HDL > or = 40mg/dL- Desirable HDL >60 mg/dL - Negative Risk Performed By: #### 3 5365-6, [facility], 6-3, 26142-1 #### [facility] ([id number]) [address], [address] [place] [address] Cholesterol in LDL [Mass/Vol] 39 mg/dL Normal <130 [facility] Comment on above: Result Comment: LDL <100 mg/dL - Desirable LDL >160 mg/dL - High Risk Performed By: #### 3 5365-6, [facility], 3015-3, 90242-4 #### [facility] ([id number]) [address], [address] [place] [address] Cholesterol in VLDL [Mass/Vol] 12 mg/dL Normal 0-30 [facility] Comment on above: Performed By: #### 3 5365-6, [facility], 6-3, 28552-0 #### [facility] ([id number]) [address], [address] [place] [address] CHOLESTEROL:HDL 2.2 Normal 1.0-5.0 [facility] Comment on above: Performed By: #### 3 5365-6, [facility], 6-3, 15205-9 #### [facility] ([id number]) [address] [facility], [address] [place] [address] Triglyceride [Mass/Vol] 58 mg/dL Normal 27-150 [facility] Comment on above: Performed By: #### 3 5365-6, [facility], 6-3, 08512-8 #### [facility] ([id number]) [address] [facility] [place] [address] Mullerian inhibiting substan ce [Mass/Vol]on 2024 ANTI MULLERIAN HORM See Below Normal [facility] Comment on above: Result Comment: NOTE TEST RESULT FLAG UNIT REF.RANGE ------ Anti Mclean Hormone 0.54 L ng/mL 0.58-8.13 Test Performed By: [facility] agreement24 avtal[address] [place] [address] Fur Dyer: Patti Jacobs III #[id number] Performed By: #### 3 5365-6, [facility], 6-3, 70040-6 #### [facility] ([id number]) [address] [facility], [address] [place] [address] Selenium [Mass/Vol]on 2023 SELENIUM, SER/PLASMA 108.6 ug/L Normal 23.0-190.0 [facility] Comment on above: Result Comment: NOTE [...] developed and its performance characteristics determined by [facility]. It has not been cleared or approved by the US Food and Drug Administration. This test was performed in a CLIA certified laboratory and is intended for clinical purposes. Performed By: [facility] [address] [place] [address] Fur Dyer: Deangelo Rosario MD, PhD CLIA Number: [id number] Performed By: #### 3 5365-6, [facility], 6-3, 06852-0 #### [facility] ([id number]) [address], [facility] [[email or web address]] [address] [place] [address] THYROID PROFILEon 2024 Free T4 [Mass/Vol] 0.67 ng/dL Normal 0.61-1.60 [facility] Comment on above: Performed By: #### 3 5365-6, [facility], 3015-3, 63935-6 #### [facility] ([id number]) [address], [facility] [[email or web address]] [address] [place] [address] TSH 2.55 uIU/mL Normal 0.49-4.67 [facility] Comment on above: Performed By: #### 3 5365-6, [facility], 6-3, 07324-0 #### [facility] ([id number]) [address], [facility] [[email or web address]] [address] [place] [address] VITAMIN E, SER/PLon 01-24-20 VIT E(ALPHA-TOCOPHEROL) 7.6 mg/L Normal 5.5-18.0 [facility] Comment on above: Result Comment: NOTE This test was developed and its performance characteristics determined by [facility]. It has not been cleared or approved by the US Food and Drug Administration. This test was performed in a CLIA certified laboratory and is intended for clinical purposes. Performed By: #### 3 5365-6, [place], 3015-, 71050-6 #### [facility] ([id number]) [address], [address] [place] [address] VIT E(GAMMA-TOCOPHEROL) 0.3 mg/L Normal 0.0-6.0 [facility] Comment on above: Result Comment: NOTE Performed By: [facility] [address] [place] [address] Fur Dyer: Deangelo Rosario MD, PhD CLIA Number: [id number] Performed By: #### 3 5365-6, [place], 3015-12, 59427-0 #### [facility] ([id number]) [address], [address] [place] [address] LIVER PANELon 01-18-2024 Albumin [Mass/Vol] 3.8 g/dL Normal 3.2-5.3 [facility] Comment on above: Performed By: #### 3 5365-6, [facility], 3015-12, 79599-3 #### [facility] ([id number]) [address], [address] [place] [address] ALP [Catalytic activity/Vol] 44 U/L Normal 39-130 [facility] Comment on above: Performed By: #### 3 5365-6, [facility], 3015-12, 45969-3 #### [facility] ([id number]) [address], [address] [place] [address] ALT [Catalytic activity/Vol] 33 U/L High 0-31 [facility] Comment on above: Performed By: #### 3 5365-6, [facility], 3015-3, 76981-2 #### [facility] ([id number]) [address], [address] [place] [address] AST [Catalytic activity/Vol] 30 U/L Normal 0-41 [facility] Comment on above: Performed By: #### 3 5365-6, CMP, 3016-3, 28714-7 #### [facility] ([id number]) [address], [address] [place] [address] Bilirubin [Mass/Vol] 0.7 mg/dL Normal 0.3-1.2 [facility] Comment on above: Performed By: #### 3 5365-6, CMP, 3016-3, #### [facility] ([id number]) [address], [address] [place] [address] Bilirubin.direct [Mass/Vol] 0.2 mg/dL Normal 0.0-0.4 [facility] Comment on above: Performed By: #### 3 5365-6, CMP, 3015-3, #### [facility] ([id number]) [address], [address] [place] [address] Protein [Mass/Vol] 6.7 g/dL Normal 6.0-8.0 [facility] Comment on above: Performed By: #### 3 5365-6, CMP, 6-3, #### [facility] ([id number]) [address], [address] [place] [address] MAGNESIUMon 01-18-2024 Magnesium [Mass/Vol] 1.7 mg/dL Low 1.8-2.6 [facility] Comment on above: Performed By: #### 3 5365-6, CMP, 6-3, 94244-3 #### [facility] ([id number]) [address], [address] [place] [address] TSH Qnon 01-18-2024 TSH 1.07 uIU/mL Normal 0.49-4.67 [facility] Comment on above: Performed By: #### 3 5365-6, CMP, 6-3, 17938-2 #### [facility] ([id number]) [address] [facility], [address] [place] [address] Vitamin D+Metabolites [Mass/ Vol]on 01-18-2024 VITAMIN D 25 HYD TOT 86.7 ng/mL Normal 30-100 [facility] Comment on above: Result Comment: Vitamin D status 25 [place] Vitamin D Deficiency <20 ng/mL Insufficiency 20-29 ng/mL Sufficiency 30-100 ng/mL Toxicity >100 ng/mL NOTE: A pediatric reference range has not been established by the fur dyer of this kit. The [place] [employer] recommends a Vitamin D level of = or >20ng/mL in infants and children. Performed By: #### 3 5365-6, [facility], 3016-3, 50256-7 #### [facility] ([id number]) [address] [place] [address], [address] [place] [address] US THYROIDon 01-06-2024 US THYROID US THYROID [...] Friend MD on 01/06/2024 6:53 AM Normal [facility] FREE T3on 01-03-2024 Free T3 [Mass/Vol] 3.48 pg/mL Normal 2.50-3.90 [facility] Comment on above: Performed By: #### 3 5365-6, [facility], 3016-3, 45983-7 #### [facility] ([id number]) [address] [place] [address], [address] [place] [address] Reference Lab Test IDon 03-0 CELIAC COMP CASCADE SEE COMMENTS 01/10/2024 10:26 PM Normal [facility] Comment on above: Result Comment: NOTE Test [...] instructions. Its performance characteristics were determined by [facility] in a manner consistent with CLIA requirements. This test has not been cleared or approved by the U.S. Food and Drug Administration. CLIA: [id number] CLIA Blanket Binder: ALAN LOUIS MD,PhD Celiac Disease See Note Interpretation See Comment: Celiac disease probable. Consider biopsy. Test Performed by: [facility] [address] [place] [address] Blanket Binder: Alan Louis M.D. Ph.D.; CLIA# [id number] Test Performed by: [facility] [address] [place] [address] Blanket Binder: Alan Louis M.D. Ph.D.; CLIA# [id number] Performed By: #### 3 5365-6, [facility], 3016-3, 19560-1 #### [facility] ([id number]) [address] [place] [address], [email or web address]] [address] [place] [address] THYROID PROFILEon 01-03-2024 Free T4 [Mass/Vol] 0.82 ng/dL Normal 0.61-1.60 [facility] Comment on above: Performed By: #### 3 5365-6, [facility], 3016-3, 69748-0 #### [facility] ([id number]) [address] [facility], [address] [place] [address] TSH 0.41 uIU/mL Low 0.49-4.67 [facility] Comment on above: Performed By: #### 3 5365-6, [facility], 3016-3, 27362-3 #### [facility] ([id number]) [address] [place] [address], [address] [place] [address] tTG IgA IA Qn (S)on 01-03-20 24 ENDOMYSIAL ABS IGA Negative Normal Negative [facility] Comment on above: Result Comment: NOTE [...] as indicated by the Celiac Disease Comprehensive [place] (Michael Test Unit Code CDCOM). In addition serum IgA endomysial antibody may also be negative in gluten-sensitive patients (with celiac disease, dermatitis herpetiformis or other gluten-sensitive disorders), who adhere to a strict gluten-free diet. ADDITIONAL INFORMATION This test has been modified from the fur dyer's instructions. Its performance characteristics were determined by [facility] in a manner consistent with CLIA requirements. This test has not been cleared or approved by the U.S. Food and Drug Administration. Test Performed by: [place] [id number] Blanket Binder: Alan Louis M.D. Ph.D.; CLIA# [id number] Performed By: #### 3 5365-6, CMP, 3016-3, 02646-4 #### [facility] ([id number]) [address] [facility], [address] [place] [address] FREE T3on 12-21-2023 Free T3 [Mass/Vol] 3.75 pg/mL Normal 2.50-3.90 [facility] Comment on above: Performed By: #### T HYR, 3051-0, 8099-4 #### [facility] ([id number]) [address] [facility], [address] [place] [address] #### 60402-5 #### [facility] ([id number]) [address] [place] [address] Mullerian inhibiting substan ce [Mass/Vol]on 12-21-2023 ANTI MULLERIAN HORM See Below Normal [facility] Comment on above: Result Comment: NOTE TEST RESULT FLAG UNIT REF.RANGE ------ Anti Mclean Hormone 0.37 L ng/mL 0.58-8.13 Test Performed By: [facility] agreement24 avtal24 [address] [place] [address] Fur Dyer: Patti Jacobs III #[id number] Performed By: #### 3 5365-6, CMP, 3016-3, 96586-6 #### [facility] ([id number]) [address] [place] [address], [address] [address] THYROID PROFILEon 12-21-2023 Free T4 [Mass/Vol] 0.94 ng/dL Normal 0.61-1.60 [facility] Comment on above: Performed By: #### T HYR, 3051-0, 8099-4 #### [facility] ([id number]) [address] [place] [address] #### 22414-3 #### [facility] ([id number]) [address] [place] [address] TSH 0.19 uIU/mL Low 0.49-4.67 [facility] Comment on above: Performed By: #### T HYR, 3051-0, 8099-4 #### [facility] ([id number]) [address] [place] [address] #### 78662-1 #### [facility] ([id number]) [address] [place] [address] THYROPEROXIDASE ABon 024 TPO Ab Qn 415 [IU]/mL High <10 [facility] Comment on above: Performed By: #### T HYR, 3051-0, 8099-4 #### [facility] ([id number]) [address] [place] [address], [address] [address] #### 94874-7 #### [facility] ([id number]) [address] [place] [address] Thyroid stimulating immunogl obulins Qn (S)on 12-21-2023 TSI See Below Normal [facility] Comment on above: Result Comment: NOTE TEST [...] Clinical correlation is required. Test Performed By: [facility] [address] [place] [address] Fur Dyer: Eloy Dangelo III, M.D. CLIA #[id number] Performed By: #### 3 5365-6, [facility], 3016-3, 14463-3 #### [facility] ([id number]) [address] [place] [address], [address] [place] [address] Mullerian inhibiting substan ce [Mass/Vol]on 12-13-2023 ANTI MULLERIAN HORM See Below Normal [facility] Comment on above: Result Comment: NOTE TEST RESULT FLAG UNIT REF.RANGE ------ Anti Mclean Hormone 0.31 L ng/mL 0.58-8.13 Test Performed By: [facility] [address] [place] [address] Fur Dyer: Eloy Dangelo III, M.D. CLIA #[id number] Performed By: #### 3 8476-8 #### [facility] ([id number]) [address] [place] [address] #### 2839-9 #### [facility] ([id number]) [address] [place] [address] Progesterone [Mass/Vol]on PROGESTERONE 3.5 ng/mL Normal [facility] Comment on above: Result Comment: FEMALES: 1st Tri: 4.7-50.7 ng/ml 2nd Tri: 19.4-45.3 ng/ml MENSTRUATING FEMALES: Follicular: 0.3-1.5 ng/ml Mid Luteal: 5.2-18.6 ng/ml Post Jacy: <0.1-0.8 ng/ml Performed By: #### 3 8476-8 #### [facility] ([id number]) [address] [place] [address], [place] [address] #### 2839-9 #### [facility] ([id number]) [address], [address] [place] [address] US PELVIC WITH TRANSVAGINALo n 12-13-2023 US [...] Friend MD on 12/13/2023 6:28 PM Normal [facility] Surgical Pathology Reporton 11-27-2023 Surgical Pathology Report (NOTE) Path Number: [id number] -- Diagnosis -- GALLBLADDER, CHOLECYSTECTOMY: -CHRONIC CHOLECYSTITIS -CHOLESTEROLOSIS -CHOLELITHIASIS Carlos A Olson D.O. Electronically Signed Out ljf/11/28/2023 Clinical Information Pre-Op Diagnosis: CHOLECYSTITIS Operative Findings: [...] lesions or periductal lymph nodes are identified. Systems Test Technician sections 1c. tm Peggy Naylor/анна2:11/27/2023 Microscopic Description Microscopic examination performed. Processing Lab: [address] [address] Interpretation Performed at [address] [address] SURGICAL PATHOLOGY CONSULTATION Patient Name: PHILLIP AVALOS Med Rec: [id number] [employer] agreement24 avtal24 [facility] ANATOMIC PATHOLOGY [address] [place] [address]. [place], [place] [id number] Normal [facility] COMPREHENSIVE METABOLIC PANE Augustin 11-16-2023 Albumin [Mass/Vol] 3.7 g/dL Normal 3.2-5.3 [facility] Comment on above: Performed By: #### 3 5365-6, [facility], 3016-3, 02600-1 #### [facility] ([id number]) [address], [address] [place] [address] ALP [Catalytic activity/Vol] 45 U/L Normal 39-130 [facility] Comment on above: Performed By: #### 3 5365-6, CMP, 3016-3, 99979-9 #### [facility] ([id number]) [address], [address] [place] [address] ALT [Catalytic activity/Vol] 51 U/L High 0-31 [facility] Comment on above: Performed By: #### 3 5365-6, CMP, 6-3, 71748-7 #### [facility] ([id number]) [address], [address] [place] [address] Anion gap [Moles/Vol] 8 mmol/L Normal 5-15 [facility] Comment on above: Performed By: #### 3 5365-6, CMP, 6-3, 03436-4 #### [facility] ([id number]) [address], [address] [place] [address] AST [Catalytic activity/Vol] 40 U/L Normal 0-41 [facility] Comment on above: Performed By: #### 3 5365-6, CMP, 3015-3, 26867-6 #### [facility] ([id number]) [address], [address] [place] [address] Bilirubin [Mass/Vol] 0.7 mg/dL Normal 0.3-1.2 [facility] Comment on above: Performed By: #### 3 5365-6, CMP, 3016-3, 43798-7 #### [facility] ([id number]) [address], [address] [place] [address] Calcium [Mass/Vol] 8.8 mg/dL Normal 8.5-10.5 [facility] Comment on above: Performed By: #### 3 5365-6, CMP, 3016-3, #### [facility] ([id number]) [address], [address] [place] [address] Chloride [Moles/Vol] 106 mmol/L Normal 98-109 [facility] Comment on above: Performed By: #### 3 5365-6, [facility], 3016-3, #### [facility] ([id number]) [address], [address] [place] [address] CO2 [Moles/Vol] 27 mmol/L Normal 22-32 [facility] Comment on above: Performed By: #### 3 5365-6, [facility], 3016-3, #### [facility] [facility] ([id number]) [address], [address] [place] [address] Creatinine [Mass/Vol] 0.60 mg/dL Normal 0.40-1.00 [facility] Comment on above: Result Comment: METH OD TRACEABLE TO IDMS STANDARD Performed By: #### 3 5365-6, [facility], 3016-3, #### [facility] ([id number]) [address], [address] [place] [address] eGFR (CKD-EPI) NON-RACE DEPENDENT >90 Normal >59 [facility] Comment on above: Result Comment: Reported eGFR is based on the CKD-EPI 2020 equation that does not use a race coefficient. Performed By: #### 3 5365-6, [facility], 3016-3, #### [facility] ([id number]) [address], [address] [place] [address] Glucose [Mass/Vol] 79 mg/dL Normal 65-99 [facility] Comment on above: Performed By: #### 3 5365-6, CMP, 3016-3, #### [facility] ([id number]) [address], [address] [place] [address] Potassium [Moles/Vol] 3.8 mmol/L Normal 3.5-5.0 [facility] Comment on above: Performed By: #### 3 5365-6, [facility], 3015-3, 55475-6 #### [facility] ([id number]) [address], [address] [place] [address] Protein [Mass/Vol] 6.4 g/dL Normal 6.0-8.0 [facility] Comment on above: Performed By: #### 3 5365-6, CMP, 6-3, #### [facility] ([id number]) [address], [address] [place] [address] Sodium [Moles/Vol] 141 mmol/L Normal 134-146 [facility] Comment on above: Performed By: #### 3 5365-6, [facility], 3015-3, #### [facility] ([id number]) [address], [address] [place] [address] Urea nitrogen [Mass/Vol] 11 mg/dL Normal 5-23 [facility] Comment on above: Performed By: #### 3 5365-6, [facility], 3015-3, 13267-3 #### [facility] ([id number]) [address], [address] [place] [address] MAGNESIUMon 11-16-2023 Magnesium [Mass/Vol] 1.8 mg/dL Normal 1.8-2.6 [facility] Comment on above: Performed By: #### 3 5365-6, CMP, 3015-3, #### [facility] ([id number]) [address], [address] [place] [address] TSH Qnon 11-16-2023 TSH 0.19 uIU/mL Low 0.49-4.67 [facility] Comment on above: Performed By: #### 3 5365-6, CMP, 3015-3, 26171-0 #### [facility] ([id number]) [address] [place] [address], [address] [place] [address] Vitamin D+Metabolites [Mass/ Vol]on 11-16-2023 VITAMIN D 25 HYD TOT 65.7 ng/mL Normal 30-100 [facility] Comment on above: Result Comment: Vitamin D status 25 [place] Vitamin D Deficiency <20 ng/mL Insufficiency 20-29 ng/mL Sufficiency 30-100 ng/mL Toxicity >100 ng/mL NOTE: A pediatric reference range has not been established by the fur dyer of this kit. The [place] [employer] recommends a Vitamin D level of = or >20ng/mL in infants and children. Performed By: #### 3 5365-6, [facility], 3016-3, 88356-0 #### [facility] ([id number]) [address] [place] [address], [address] [place] [address] CBC AUTO DIFFon 03-13-2023 BASO # 0.0 103/ul Normal 0.0-0.1 [facility] Comment on above: Performed By: #### C BC #### [facility] [address] [address] [address] Froy Calderón Basophils/100 WBC (Bld) 0.6 % Normal 0.2-2.0 [facility] Comment on above: Performed By: #### C BC #### [facility] [address] [address] [address] Froy Calderón EO # 0.3 103/ul Normal 0.0-0.7 [facility] Comment on above: Performed By: #### C BC #### [facility] [address] [address] [address] Froy Calderón Eosinophils/100 WBC (Bld) 3.9 % Normal 0.9-7.0 [facility] Comment on above: Performed By: #### C BC #### [facility] [address] [place] [address] Dr. Froy Calderón Erythrocyte distribution width (RBC) [Ratio] 12.0 % Normal 11.0-15.0 [facility] Comment on above: Performed By: #### C BC #### [facility] [address] [place] [address] Dr. Froy Calderón Hematocrit (Bld) [Volume fraction] 38.6 % Normal 36.0-48.0 [facility] Comment on above: Performed By: #### C BC #### [facility] [address] [place] [address] Dr. Froy Calderón Hemoglobin (Bld) [Mass/Vol] 12.9 g/dL Normal 12.0-16.0 [facility] Comment on above: Performed By: #### C BC #### [facility] [address] [place] [address] Dr. Froy Calderón IG # 0.02 10e3/ul Normal 0.00-0.03 [facility] Comment on above: Performed By: #### C BC #### [facility] [address] [place] [address] Dr. Froy Calderón IG % 0.3 % Normal 0.0-0.5 [facility] Comment on above: Performed By: #### C BC #### [facility] [address] [place] [address] Dr. Froy Calderón LYMPH # 1.8 103/ul Normal 1.2-3.8 [facility] Comment on above: Performed By: #### C BC #### [facility] [address] [place] [address] Dr. Froy Calderón Lymphocytes/100 WBC (Bld) 26.5 % Normal 20.5-60.0 [facility] Comment on above: Performed By: #### C BC #### [facility] [address] [place] [address] Dr. Froy Calderón MANUAL DIFF REQ NO Normal [facility] Comment on above: Performed By: #### C BC #### [facility] [address] [place] [address] Dr. Froy Calderón MCH (RBC) [Entitic mass] 31.3 pg Normal 26.7-34.0 [facility] Comment on above: Performed By: #### C BC #### [facility] [address] [place] [address] Dr. Froy Calderón MCHC (RBC) [Mass/Vol] 33.4 g/dL Normal 29.9-35.2 [facility] Comment on above: Performed By: #### C BC #### [facility] [address] [place] [address] Dr. Froy Calderón MCV (RBC) [Entitic vol] 93.7 fL Normal 81.0-99.0 [facility] Comment on above: Performed By: #### C BC #### [facility] [address] [place] [address] Dr. Froy Calderón MONO # 0.6 103/ul Normal 0.3-0.8 [facility] Comment on above: Performed By: #### C BC #### [facility] [address] [place] [address] Dr. Froy Calderón Monocytes/100 WBC (Bld) 8.1 % Normal 1.7-12.0 [facility] Comment on above: Performed By: #### C BC #### [facility] [address] [place] [address] Dr. Froy Calderón NEUT # 4.2 103/ul Normal 1.4-6.5 [facility] Comment on above: Performed By: #### C BC #### [facility] [address] [place] [address] Dr. Froy Calderón Neutrophils/100 WBC (Bld) 60.6 % Normal 43.0-75.0 [facility] Comment on above: Performed By: #### C BC #### [facility] [address] [place] [address] Dr. Froy Calderón Platelet mean volume (Bld) [Entitic vol] 9.2 fL Critically low 9.5-13.5 [facility] Comment on above: Performed By: #### C BC #### [facility] [address] [place] [address] Dr. Froy Calderón PLT 226 103/ul Normal 150-450 [facility] Comment on above: Performed By: #### C BC #### [facility] [address] [place] [address] Dr. Froy Calderón RBC 4.12 106/ul Critically low 4.20-5.40 [facility] Comment on above: Performed By: #### C BC #### [facility] [address] [place] [address] Dr. Froy Calderón WBC 7.0 103/ul Normal 4.0-11.0 [facility] Comment on above: Performed By: #### C BC #### [facility] [address] [place] [address] Dr. Froy Calderón FREE T4on 03-13-2023 Free T4 [Mass/Vol] 0.96 ng/dL Normal 0.76-1.46 [facility] Comment on above: Performed By: #### F T4 #### [facility] [address] [place] [address] Dr. Froy Calderón GLYCOHEMOGLOBIN A1Con 2022 ADA RECOMMENDATION SEE BELOW Normal [facility] Comment on above: Result Comment: ADA RECOMMENDED LIMIT 4.0 - 6.0 ADA THERAPEUTIC TARGET < 7.0 ACTION SUGGESTED > 7.0 Performed By: #### A 1C #### [facility] [address] [place] [address] Dr. Froy Calderón Glucose [Mass/Vol] 91 mg/dL Normal [facility] Comment on above: Performed By: #### A 1C #### [facility] [address] [place] [address] Dr. Froy Calderón HbA1c (Bld) [Mass fraction] 4.8 % Normal 4.5-6.2 [facility] Comment on above: Performed By: #### A 1C #### [facility] [address] [place] [address] Dr. Froy Calderón TSHon 03-13-2023 TSH 5.367 uIU/mL Critically high 0.358-3.740 [facility] Comment on above: Performed By: #### T SH #### [facility] [address] [address] [address] Froy Calderón US PELVIS AND TRANSVAGon [...] by: NATALIE KHAN Date: 2023-02-19 09:20 Normal [facility] PAP ACOG PANEL 2: 30 to 65on 01-31-2023 . . Normal [facility] Comment on above: Result Comment: Perf ormed at: WB Performed By: #### 4 [id number] #### [facility] [address] [place] [address] Dr. Froy Calderón Age Gdln ACOG Testing 30-65 Normal [facility] Comment on above: Performed By: #### 4 [id number] #### [facility] [address] [place] [address] Dr. Froy Calderón DIAGNOSIS: Comment [facility] Comment on above: Result Comment: NEGA TIVE FOR INTRAEPITHELIAL LESION OR MALIGNANCY. Performed at: WB Performed By: #### 4 [id number] #### [facility] [address] [place] [address] Dr. Froy Calderón HPV Aptima Negative Normal Negative [facility] Comment on above: Result Comment: This nucleic acid amplification test detects fourteen high-risk HPV types (16,18,31,33,35,39,45,51,52,56,58,59,66,68) without differentiation. Performed at: =G Performed By: #### 4 [id number] #### [facility] [address] [place] [address] Dr. Froy Calderón HPV Genotype Reflex Comment Normal [facility] Comment on above: Result Comment: Crit eria not met, HPV Genotype not performed. Performed at: WB Performed By: #### 4 [id number] #### [facility] [address] [place] [address] Dr. Froy Calderón Methodology: Comment Normal [facility] Comment on above: Result Comment: This liquid based ThinPrep(R) pap test was screened with the use of an image guided system. Performed at: WB Performed By: #### 4 [id number] #### [facility] [address] [place] [address] Dr. Froy Calderón Note: Comment Normal [facility] Comment on above: Result Comment: The Pap smear is a screening test designed to aid in the detection of premalignant and malignant conditions of the uterine cervix. It is not a diagnostic procedure and should not be used as the sole means of detecting cervical cancer. Both false-positive and false-negative reports do occur. . Performed at: WB Performed By: #### 4 [id number] #### [facility] [address] [place] [address] Dr. Froy Calderón Performed by: Comment Normal [facility] Comment on above: Result Comment: Racheal Villatoro, [employer] Education Coordinator Performed at: WB Performed By: #### 4 [id number] #### [facility] [address] [place] [address] Dr. Froy Calderón Specimen adequacy: Comment Normal [facility] Comment on above: Result Comment: Sati sfactory for evaluation. Endocervical and/or squamous metaplastic cells (endocervical component) are present. Performed at: WB Performed By: #### 4 [id number] #### [facility] [address] [address] [address] Froy Calderón Cytology Cervical or vaginal smear or scraping studyon 2023 [facility] PREG QUANT HCGon 12-03-2022 HCG QUANT <1 Normal [facility] Comment on above: Performed By: #### P REGQNT #### [facility] [address] [place] [address] Dr. Froy Calderón HCG RANGE SEE BELOW Normal [facility] Comment on above: Result Comment: 5-50 0.2-1 WEEK 50-500 1-2 WEEKS 100-5,000 2-3 WEEKS 500-10,000 3-4 WEEKS 1,000-50,000 4-5 WEEKS 10,000-100,000 5-6 WEEKS 15,000-200,000 6-8 WEEKS 10,000-100,000 2-3 MONTHS Performed By: #### P REGQNT #### [facility] [address] [place] [address] Dr. Froy Calderón Basic Metabolic Panelon 09-0 Anion gap [Moles/Vol] 10 mmol/L 9 - 17 mmol/L [facility] Calcium [Mass/Vol] 8.4 mg/dL Low 8.6 - 10. 4 mg/dL [facility] Chloride [Moles/Vol] 107 mmol/L 98 - 10 7 mmol/L [facility] CO2 [Moles/Vol] 21 mmol/L 20 - 31 mmol/L [facility] Creatinine [Mass/Vol] 0.61 mg/dL 0.5 - 0.9 mg/dL [facility] GFR >60 60 - PI NF mL/min [facility] GFR Non- >60 60 - PINF mL/min [facility] GFR/1.73 sq M.predicted MDRD (S/P/Bld) [Vol rate/Area] [facility] Comment on above: Average GFR for 20-2 9 years old: 116 mL/min/1.73sq m Chronic Kidney Disease: <60 mL/min/1.73sq m Kidney failure: <15 mL/min/1.73sq m eGFR calculated using average adult body mass. Additional eGFR calculator available at: http://www.[employer]/multiple_crcl_2012.htm Glucose [Mass/Vol] 107 mg/dL High 70 - 99 mg/dL [facility] Interpretation and review of laboratory results Abnormal [facility] Potassium [Moles/Vol] 5.0 mmol/L 3.7 - 5.3 mmol/L [facility] Sodium [Moles/Vol] 138 mmol/L 135 - 144 mmol/L [facility] Urea nitrogen (BldV) [Mass/Vol] 7 mg/dL 6 - 20 mg/dL [facility] CBCon 07-04-2022 Hematocrit (Bld) [Volume fraction] 39.8 % 36.3 - 47.1 % [facility] Hemoglobin (Bld) [Mass/Vol] 13.4 g/dL 11.9 - 15.1 g/dL [facility] Interpretation and review of laboratory results Abnormal [facility] MCH (RBC) [Entitic mass] 30.1 pg 25.2 - 33.5 pg [facility] MCHC (RBC) [Mass/Vol] 33.7 g/dL 28.4 - 34.8 g/dL [facility] MCV (RBC) [Entitic vol] 89.4 fL 82.6 - 102.9 fL [facility] NRBC Automated 0.0 0.0 per 100 WBC [facility] Platelet distribution width (Bld) [Ratio] 11.6 % Low 11.8 - 14.4 % [facility] Platelet mean volume (Bld) [Entitic vol] 9.6 fL 8.1 - 13.5 fL [facility] Platelets (Bld) [#/Vol] 217 10*3/uL [facility] RBC (Bld) [#/Vol] 4.45 10*6/uL 3.95 - 5.1 1 m/uL [facility] WBC (Bld) [#/Vol] 13.6 10*3/uL High [facility] Basic Metabolic Panelon Anion gap [Moles/Vol] 14 mmol/L 9 - 17 mmol/L [facility] Calcium [Mass/Vol] 8.8 mg/dL 8.6 - 10. 4 mg/dL [facility] Chloride [Moles/Vol] 103 mmol/L 98 - 10 7 mmol/L [facility] CO2 [Moles/Vol] 18 mmol/L Low 20 - 31 mmol/L [facility] Creatinine [Mass/Vol] 0.66 mg/dL 0.5 - 0.9 mg/dL [facility] GFR >60 60 - PI NF mL/min [facility] GFR Non- >60 60 - PINF mL/min [facility] GFR/1.73 sq M.predicted MDRD (S/P/Bld) [Vol rate/Area] [facility] Comment on above: Average GFR for 20-2 9 years old: 116 mL/min/1.73sq m Chronic Kidney Disease: <60 mL/min/1.73sq m Kidney failure: <15 mL/min/1.73sq m eGFR calculated using average adult body mass. Additional eGFR calculator available at: http://www.[employer]/multiple_crcl_2011.htm Glucose [Mass/Vol] 126 mg/dL High 70 - 99 mg/dL [facility] Interpretation and review of laboratory results Abnormal [facility] Potassium [Moles/Vol] 4.3 mmol/L 3.7 - 5.3 mmol/L [facility] Sodium [Moles/Vol] 135 mmol/L 135 - 144 mmol/L [facility] Urea nitrogen (BldV) [Mass/Vol] 11 mg/dL 6 - 20 mg/dL [facility] CBC without Diffon Hematocrit (Bld) [Volume fraction] 46.4 % 36.3 - 47.1 % [facility] Hemoglobin (Bld) [Mass/Vol] 15.2 g/dL High 11.9 - 15.1 g/dL [facility] Interpretation and review of laboratory results Abnormal [facility] MCH (RBC) [Entitic mass] 29.9 pg 25.2 - 33.5 pg [facility] MCHC (RBC) [Mass/Vol] 32.8 g/dL 28.4 - 34.8 g/dL [facility] MCV (RBC) [Entitic vol] 91.2 fL 82.6 - 102.9 fL [facility] NRBC Automated 0.0 0.0 per 100 WBC [facility] Platelet distribution width (Bld) [Ratio] 11.9 % 11.8 - 14.4 % [facility] Platelet mean volume (Bld) [Entitic vol] 9.4 fL 8.1 - 13.5 fL [facility] Platelets (Bld) [#/Vol] 232 10*3/uL [facility] RBC (Bld) [#/Vol] 5.09 10*6/uL 3.95 - 5.1 1 m/uL [facility] WBC (Bld) [#/Vol] 9.0 10*3/uL [facility] POCT urine pregnancyon 07-03 Beta HCG ( test) Ql (U) Negative NEGATIVE [facility] Comment on above: Specimens with hCG l evels near the threshold of the test (25 mIU/mL) may give a negative or indeterminate result. In such cases, another test should be performed with a new specimen in 48-72 hours. If early is suspected clinically in this setting, correlation with quantitative serum b-hCG level is suggested. [facility] Gastroenterology Office/Clin ic Noteon 03-29-2021 Gastroenterology Office/Clinic [...] questions at this time. Electronically signed by Perico Faith R 03/31/21 14:40 EDT Electronically signed by Magdalene Banerjee 04/03/2021 09:24 EDT Normal [facility] 02-27-2021 Consent [id number]# 1.00CD:127 [facility] Registrationon 02-27-2021 Registration [id number]# 1.00CD:127 [facility] Vital Signs Date Time Vital Sign Value Performing Clinician Facility 12-02-2024 10:45-0500 Body mass index (BMI) [Ratio] 27.17 kg/m2 Jake Miramontes DO Work Phone: [facility] 12-02-2024 10:45-0500 Body weight 88.36 kg Jake Fe DO Work Phone: [facility] 12-02-2024 10:45-0500 Diastolic blood pressure 72 mm[Hg] Jake Fe DO Work Phone: [facility] 12-02-2024 10:45-0500 Systolic blood pressure 110 mm[Hg] Jake Fe DO Work Phone: [facility] 11-20-2024 09:56-0500 Body mass index (BMI) [Ratio] 27.66 kg/m2 Ronaldo Mcnulty MD Work Phone: [facility] 11-20-2024 09:56-0500 Body weight 87.45 kg Ronaldo Mcnulty MD Work Phone: [facility] 11-20-2024 09:56-0500 Diastolic blood pressure 78 mm[Hg] Ronaldo Mcnulty MD Work Phone: [facility] 11-20-2024 09:56-0500 Heart rate 86 /min Ronaldo Mcnulty MD Work Phone: [facility] 11-20-2024 09:56-0500 Systolic blood pressure 116 mm[Hg] Ronaldo Mcnulty MD Work Phone: [facility] 11-18-2024 15:49-0500 Body mass index (BMI) [Ratio] 27.06 kg/m2 Jake Fe DO Work Phone: [facility] 11-18-2024 15:49-0500 Body weight 88 kg Jake Fe DO Work Phone: [facility] 11-18-2024 15:49-0500 Diastolic blood pressure 68 mm[Hg] Jake Fe DO Work Phone: [facility] 11-18-2024 15:49-0500 Systolic blood pressure 116 mm[Hg] Jake Fe DO Work Phone: [facility] 11-04-2024 14:47-0500 Body mass index (BMI) [Ratio] 27.03 kg/m2 Jake Fe DO Work Phone: [facility] 11-04-2024 14:47-0500 Body weight 87.91 kg Jake Fe DO Work Phone: [facility] 11-04-2024 14:47-0500 Diastolic blood pressure 70 mm[Hg] Jake Fe DO Work Phone: [facility] 11-04-2024 14:47-0500 Systolic blood pressure 120 mm[Hg] Jake Fe DO Work Phone: [facility] 10-22-2024 11:17-0500 Body mass index (BMI) [Ratio] 26.33 kg/m2 Jake Fe DO Work Phone: [facility] 10-22-2024 11:17-0500 Body weight 85.64 kg Jake Fe DO Work Phone: [facility] 10-22-2024 11:17-0500 Diastolic blood pressure 70 mm[Hg] Jake Fe DO Work Phone: [facility] 10-22-2024 11:17-0500 Systolic blood pressure 110 mm[Hg] Jake Fe DO Work Phone: [facility] 09-29-2024 09:25-0500 Body mass index (BMI) [Ratio] 25.8 kg/m2 Jake Fe DO Work Phone: [facility] 09-29-2024 09:25-0500 Body weight 83.92 kg Jake Fe DO Work Phone: [facility] 09-29-2024 09:25-0500 Diastolic blood pressure 72 mm[Hg] Jake Fe DO Work Phone: [facility] 09-29-2024 09:25-0500 Systolic blood pressure 102 mm[Hg] Jake Fe DO Work Phone: [facility] 09-01-2024 11:46-0500 Body mass index (BMI) [Ratio] 24.69 kg/m2 Jake Fe DO Work Phone: [facility] 09-01-2024 11:46-0500 Body weight 80.29 kg Jake Fe DO Work Phone: [facility] 09-01-2024 11:46-0500 Diastolic blood pressure 60 mm[Hg] Jake Fe DO Work Phone: [facility] 09-01-2024 11:46-0500 Systolic blood pressure 100 mm[Hg] Jake Fe DO Work Phone: [facility] 08-03-2024 09:04-0400 Body mass index (BMI) [Ratio] 23.85 kg/m2 Katherine VELAZCO Work Phone: [facility] 08-03-2024 09:04-0400 Body weight 77.56 kg Katherine VELAZCO Work Phone: [facility] 08-03-2024 09:04-0400 Diastolic blood pressure 72 mm[Hg] Katherine De La Torre PA Work Phone: [facility] 08-03-2024 09:04-0400 Systolic blood pressure 118 mm[Hg] Katherine De La Torre PA Work Phone: [facility] 07-07-2024 09:24-0400 Body mass index (BMI) [Ratio] 22.59 kg/m2 Jake Fe DO Work Phone: [facility] 07-07-2024 09:24-0400 Body weight 73.48 kg Jake Fe DO Work Phone: [facility] 07-07-2024 09:24-0400 Diastolic blood pressure 60 mm[Hg] Jake Fe DO Work Phone: [facility] 07-07-2024 09:24-0400 Systolic blood pressure 110 mm[Hg] Jake Fe DO Work Phone: [facility] 07-04-2022 11:11-0400 Body temperature 99.3 [degF] Bret Manuel DO Work Phone: [facility] 07-04-2022 11:11-0400 Diastolic blood pressure 75 mm[Hg] Bret Manuel DO Work Phone: [facility] 07-04-2022 11:11-0400 Heart rate 63 /min Bret Manuel DO Work Phone: [facility] 07-04-2022 11:11-0400 Respiratory rate 16 /min Bret Manuel DO Work Phone: [facility] 07-04-2022 11:11-0400 SaO2% (BldA) [Mass fraction] 99 % Bret Manuel DO Work Phone: [facility] 07-04-2022 11:11-0400 Systolic blood pressure 141 mm[Hg] Bret Manuel DO Work Phone: [facility] 07-03-2022 09:50-0400 Body height 177.8 cm Bret Manuel [employer] Work Phone: [facility] 07-03-2022 09:50-0400 Body mass index (BMI) [Ratio] 38.17 kg/m2 Bret Manuel DO Work Phone: [facility] 07-03-2022 09:50-0400 Body weight 120.66 kg Bret Manuel DO Work Phone: [facility] Encounters Encounter Date Encounter Type Care Provider Facility Start: 12-02-2024 End: 12-02-2024 Bamboo flowsheet Jake Fe DO Work Phone: [facility] Start: 12-02-2024 End: 12-02-2024 Bamboo flowsheet Jake Fe DO Work Phone: [facility] Start: 12-02-2024 End: 12-02-2024 Office outpatient visit 15 minutes Jake Fe DO Work Phone: [facility] Comment on above: Third trimester preg qamar; 34 weeks gestation of ; Excessive growth affecting management of , antepartum, single or unspecified fetus Start: 12-02-2024 End: 12-02-2024 ambulatory JAKE FE Not Available Start: 11-20-2024 End: 11-20-2024 Office consultation new/estab patient 60 min Ronaldo Mcnulty MD Work Phone: Maternal- Medicine at [facility] Comment on above: H/O gastric sleeve ( Primary Dx) Start: 11-18-2024 End: 11-18-2024 Office outpatient visit 15 minutes Jake Fe DO Work Phone: [facility] Comment on above: Third trimester preg qamar; 32 weeks gestation of Start: 11-18-2024 End: 11-18-2024 ambulatory JAKE FE Not Available Start: 11-18-2024 End: 11-18-2024 Bamboo flowsheet Jake Fe DO Work Phone: [facility] Start: 11-18-2024 End: 11-18-2024 Bamboo flowsheet Jake Fe DO Work Phone: [facility] Start: 11-11-2024 End: 11-11-2024 External Result Encounter Jake Fe DO Work Phone: [facility] Unsolicited Start: 11-11-2024 End: 11-11-2024 External Result Encounter Jake Fe DO Work Phone: [facility] Unsolicited Start: 11-11-2024 End: 11-11-2024 ambulatory JAKE R FE [facility] Start: 11-04-2024 End: 11-04-2024 Office outpatient visit 15 minutes Jake Fe DO Work Phone: [facility] Comment on above: 30 weeks gestation o f ; Third trimester ; Diabetes mellitus screening Start: 11-04-2024 End: 11-04-2024 ambulatory JAKE FE Not Available Start: 11-04-2024 End: 11-04-2024 Bamboo flowsheet Jake Fe DO Work Phone: [facility] Start: 11-04-2024 End: 11-04-2024 Bamboo flowsheet Jake Fe DO Work Phone: [facility] Start: 10-22-2024 End: 10-22-2024 Bamboo flowsheet Jake Fe DO Work Phone: [facility] Start: 10-22-2024 End: 10-22-2024 Bamboo flowsheet Jake Fe DO Work Phone: [facility] Start: 10-22-2024 End: 10-22-2024 Office outpatient visit 15 minutes Jake Fe DO Work Phone: [facility] Comment on above: 28 weeks gestation o f ; Third trimester Start: 10-22-2024 End: 10-22-2024 ambulatory JAKE FE Not Available Start: 09-29-2024 End: 09-29-2024 Bamboo flowsheet Jake Fe DO Work Phone: [facility] Start: 09-29-2024 End: 09-29-2024 Bamboo flowsheet Jake Fe DO Work Phone: [facility] Start: 09-29-2024 End: 09-29-2024 Office outpatient visit 15 minutes Jake Fe DO Work Phone: [facility] Comment on above: Second trimester pre gnancy; 25 weeks gestation of ; Diabetes mellitus screening; Gestational diabetes mellitus (GDM), antepartum, gestational diabetes method of control unspecified; Elevated glucose tolerance test Start: 09-29-2024 End: 09-29-2024 ambulatory JAKE FE Not Available Start: 09-01-2024 End: 09-01-2024 Bamboo flowsheet Jake Fe DO Work Phone: [facility] Start: 09-01-2024 End: 09-01-2024 Bamboo flowsheet Jake Fe DO Work Phone: [facility] Start: 09-01-2024 End: 09-01-2024 Office outpatient visit 15 minutes Jake oRjaso DO Work Phone: [facility] Comment on above: 21 weeks gestation o f ; Second trimester Start: 09-01-2024 End: 09-01-2024 ambulatory JAKE MIRAMONTES Not Available Start: 08-26-2024 End: 08-26-2024 Emergency department patient visit ROGER Velázquez JONAH [facility] Start: 08-15-2024 End: 08-15-2024 External Result Encounter Jake Miramontes DO Work Phone: [facility] Unsolicited Start: 08-15-2024 End: 08-15-2024 External Result Encounter Jake Miramontes DO Work Phone: [facility] Unsolicited Start: 08-15-2024 End: 08-15-2024 [facility] Start: 08-03-2024 End: 08-03-2024 Bamboo flowsheet Katherine [...] 08-03-2024 End: 08-03-2024 Patient encounter procedure Katherine VELAZCO Work Phone: [facility] Start: 08-03-2024 End: 08-03-2024 ambulatory KATHERINE WIL Not Available Start: 07-18-2024 End: 07-18-2024 External Result Encounter Jake Fe DO Work Phone: [facility] Unsolicited Start: 07-18-2024 End: 07-18-2024 External Result Encounter Jake Fe DO Work Phone: [facility] Unsolicited Start: 07-18-2024 End: 07-18-2024 ambulatory JAKE R [facility] Start: 07-07-2024 End: 07-07-2024 Bamboo flowsheet Jake Fe DO Work Phone: [facility] Start: 07-07-2024 End: 07-07-2024 Bamboo flowsheet Jake Fe DO Work Phone: [facility] Start: 07-07-2024 End: 07-07-2024 Office outpatient visit 15 minutes Jake Fe DO Work Phone: [facility] Comment on above: 13 weeks gestation o f ; Gastroesophageal reflux in Start: 07-07-2024 End: 07-07-2024 ambulatory JAKE FE Not Available Start: 06-20-2024 End: 06-20-2024 External Result Encounter Jake Fe DO Work Phone: [facility] Unsolicited Start: 06-20-2024 End: 06-20-2024 External Result Encounter Jake Fe DO Work Phone: [facility] Unsolicited Start: 06-20-2024 End: 06-20-2024 ambulatory JAKE R [facility] Start: 06-12-2024 End: 06-12-2024 ambulatory JAKE FE Not Available Start: 06-06-2024 End: 06-06-2024 Emergency department patient visit JAKE R [facility] Start: 06-06-2024 End: 06-06-2024 ambulatory JAKE R [facility] Start: 05-26-2024 End: 05-27-2024 Emergency department patient visit ROGER MCKENZIE [facility] Start: 05-14-2024 End: 05-14-2024 ambulatory JAKE Velázquez [facility] Start: 05-11-2024 End: 05-11-2024 ambulatory [facility] Start: 05-08-2024 End: 05-08-2024 ambulatory JAKE Eber [facility] Start: 05-06-2024 End: 05-06-2024 ambulatory [facility] Start: 05-01-2024 End: 05-01-2024 ambulatory JAKE Eber [facility] Start: 04-28-2024 End: 04-28-2024 ambulatory [facility] Start: 02-14-2024 End: 02-14-2024 ambulatory [facility] Start: 2024 End: 2024 ambulatory [facility] Start: 01-18-2024 End: 01-18-2024 [facility] Start: 01-03-2024 End: 01-03-2024 [facility] Start: 12-21-2023 End: 12-21-2023 [facility] Start: 12-18-2023 Orders Only Jake Miramontes DO Work Phone: [facility] Comment on above: 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; Personal history of other diseases of the female genital tract Start: 12-13-2023 End: 12-13-2023 ambulatory [facility] Start: 11-27-2023 End: 11-27-2023 [facility] Start: 11-16-2023 End: 11-16-2023 ambulatory [facility] Start: 03-13-2023 End: 03-14-2023 ambulatory [...] present Start: 04-27-2021 ambulatory Chayo Fofana MD Facility:[facility] Procedures Date Procedure Procedure Detail Performing Clinician Start: 12-02-2024 Urnls dip stick/tabl et rgnt non-auto w/o micrscp Jake Fe DO Work Phone: Start: 11-18-2024 Urnls dip stick/tabl et rgnt non-auto w/o micrscp Jake Fe DO Work Phone: Start: 11-11-2024 Complete blood count with white cell differential, automated Jake Fe DO Work Phone: Start: 11-04-2024 Urnls dip stick/tabl et rgnt non-auto w/o micrscp Jake Fe DO Work Phone: Start: 10-22-2024 Urnls dip stick/tabl et rgnt non-auto w/o micrscp Jake Fe DO Work Phone: Start: 09-29-2024 Urnls dip stick/tabl et rgnt non-auto w/o micrscp Jake Fe DO Work Phone: Start: 09-01-2024 Urnls dip stick/tabl et rgnt non-auto w/o micrscp Jake FePaeDae Work Phone: Start: 08-15-2024 Assay of thyroid stimulating hormone tsh [email or web address] Work Phone: Start: 08-03-2024 URETHRITIS/DISCHARGE PLUS VAGINITIS (HTRX) Katherine VELAZCO Work Phone: Start: 08-03-2024 Urnls dip stick/tabl et rgnt non-auto w/o micrscp Katherine VELAZCO Work Phone: Start: 07-18-2024 Assay of thyroid stimulating hormone tsh [email or web address] Work Phone: Start: 07-07-2024 Urnls dip stick/tabl et rgnt non-auto w/o micrscp [facility] [employer] Work Phone: Start: 06-20-2024 Thyrotropin [Units/v olume] in Serum or Plasma [email or web address] Work Phone: Start: 2023 Microscopic observat ion [Identifier] in Cervix by Cyto stain [facility] [employer] Work Phone: Start: 2023 Cytp cerv/vag auto t hin layer prep mnl screen [facility] [employer] Phone: Start: 07-04-2022 Basic metabolic pane l calcium total Bret Velázquez Kaleb DO Work Phone: Start: 07-03-2022 Basic metabolic pane l calcium total Bret Velázquez Kaleb DO Work Phone: Start: 07-03-2022 End: 07-03-2022 Laps gstrc rstrictiv px longitudinal gastrectomy Bret Velázquez Kaleb DO Work Phone: Start: 07-03-2022 Urine test visual color cmprsn meths Bret Velázquez Manuel [employer] Work Phone: Start: 04-17-2021 Microscopic observat ion [Identifier] in Cervix by Cyto stain Jake Miramontes DO Work Phone: Plan of Treatment Date Care Activity Detail Author Start: 01-25-2028 Screening for malign ant neoplasm of cervix [facility] Start: 2026 Screening for malign ant neoplasm of cervix Pap Smear [facility] Start: 11-20-2025 Adult BMI Screening Adult BMI Screen ing [facility] Start: 11-20-2025 Tobacco Screening Tobacco Screening [facility] Start: 12-30-2024 End: 12-30-2024 Patient encounter procedure 12/30/2024 1:10 PM EST Routine [facility] [address] [place] [id number] Jake Miramontes, DO [address] [place] [address] [facility] Start: 12-23-2024 End: 12-23-2024 Patient encounter procedure 12/23/2024 11:30 AM EST Routine [facility] [address] [place] [id number] Jake Miramontes, DO [address] [place] [address] [facility] Start: 12-16-2024 End: 12-16-2024 Patient encounter procedure 12/16/2024 1:00 PM EST Routine [facility] [address] [place] [id number] Jake Miramontes, DO [address] [place] [address] [facility] Start: 12-02-2024 End: 12-02-2025 US biophysical profile w non stress test US biophysical profile w non stress test Imaging Routine Excessive growth affecting management of , antepartum, single or unspecified fetus Expected: 12/02/2024 (Approximate), Expires: 12/02/2025 [facility] Work Phone: Comment on above: Expected: 12/02/2024 (Approximate), Expires: 12/02/2025 Start: 12-02-2024 End: 12-02-2024 Patient encounter procedure [facility] Comment on above: Arrived Start: 11-18-2024 End: 11-18-2024 Patient encounter procedure [facility] Comment on above: Arrived Start: 11-04-2024 End: 11-04-2024 Patient encounter procedure [facility] Comment on above: Arrived Start: 11-04-2024 End: 11-04-2025 CBC W Auto Differential panel - Blood CBC and differential Lab Routine Diabetes mellitus screening Expected: 11/04/2024 (Approximate), Expires: 11/04/2025 [facility] Work Phone: Comment on above: Expected: 11/04/2024 (Approximate), Expires: 11/04/2025 Start: 11-01-2024 Adult BMI Screening Adult BMI Screen [facility] Start: 10-22-2024 End: 10-22-2024 Patient encounter procedure [facility] Comment on above: Arrived Start: 09-29-2024 End: 09-29-2025 CBC panel - Blood by Automated count CBC Lab Routine Diabetes mellitus screening Expected: 09/29/2024 (Approximate), Expires: 09/29/2025 [facility] Work Phone: Comment on above: Expected: 09/29/2024 (Approximate), Expires: 09/29/2025 Start: 09-29-2024 End: 09-29-2025 Measurement of glucose 1 hour after glucose challenge for glucose tolerance test Glucose tolerance, 1 hour Lab Routine Diabetes mellitus screening Expected: 09/29/2024 (Approximate), Expires: 09/29/2025 [facility] Comment on above: Expected: 09/29/2024 (Approximate), Expires: 09/29/2025 Start: 09-29-2024 End: 09-29-2024 Patient encounter procedure [facility] Comment on above: Arrived Start: 09-01-2024 End: 09-01-2024 Patient encounter procedure [facility] Comment on above: Arrived Start: 09-01-2024 End: 09-01-2024 Professional / ancillary services management 09/01/2024 10:30 AM EST Ancillary Procedure [facility] [address] [place] [phone] [facility] Start: 09-01-2024 End: 09-01-2024 Patient encounter procedure 09/01/2024 9:20 AM EST Routine [facility] [address] [place] [phone] Jake Miramontes, DO [address] [place] [address] [facility] Start: 08-03-2024 End: 09-03-2024 Alpha fetoprotein, maternal Alpha fetoprotein, maternal Lab Routine Screening, , for anatomic survey Expected: 08/03/2024 (Approximate), Expires: 09/03/2024 [facility] Work Phone: Comment on above: Expected: 08/03/2024 (Approximate), Expires: 09/03/2024 Start: 08-03-2024 End: 08-03-2025 US for US OB ANATOMY SINGLE W US OB CERVICAL LENGTH Imaging Routine Screening, , for anatomic survey Expected: 08/03/2024 (Approximate), Expires: 08/03/2025 [facility] Comment on above: Expected: 08/03/2024 (Approximate), Expires: 08/03/2025 Start: 08-03-2024 End: 08-03-2024 Patient encounter procedure [facility] Comment on above: Arrived Start: 07-07-2024 End: 07-07-2024 Patient encounter procedure [facility] Comment on above: Arrived Start: 06-28-2024 Influenza vaccination [facility] Start: 04-17-2024 Screening for malign ant neoplasm of cervix Pap Smear [facility] [employer] Start: 12-18-2023 End: 12-18-2024 Antimullerian hormone (AMH) Antimullerian hormone (AMH) Lab Routine Female infertility associated with anovulation Personal history of other diseases of the female genital tract Expected: 12/18/2023, Expires: 12/18/[address] [facility] Work Phone: Comment on above: Expected: 12/18/2023 , Expires: 12/18/2024 Start: 12-06-2023 Tobacco Screening Tobacco Screening [facility] Start: 06-28-2023 Influenza vaccination Influenza Vacc ine [facility] Start: 08-07-2022 End: 08-07-2022 Patient encounter procedure 08/07/2022 Office Visit Bariatrics Dottie Diaz, TRAFFIC DIVISION COMMANDING OFFICER - BUN MACHINE OPERATOR [address] [place] [address] [facility] [employer] [facility] S[facility] Start: 07-12-2022 End: 07-12-2022 Patient encounter procedure 07/12/2022 Office Visit Bariatrics Bret Manuel, DO [address] [place] [address] [facility] Start: 06-28-2022 Influenza vaccination Flu vaccine (# 1) [facility] Start: 2014 Screening for malign ant neoplasm of cervix Pap smear [facility] Start: 01-25-2012 DTaP,Tdap and Td Vaccines (1 - Tdap) DTaP,Tdap and Td Vaccines (1 - Tdap) [facility] Start: 01-25-2012 DTaP/Tdap/Td vaccine (1 - Tdap) DTaP/Tdap/Td vaccine (1 - Tdap) [facility] Start: 2011 Adult BMI Follow Up Plan Adult BMI Follow Up Plan [facility] Start: 2011 Hepatitis C screening Hepatitis C sc reen [facility] [facility] Start: 01-25-2008 HIV screening HIV screen [facility] Start: 2005 Depression Screen Depression Screen [facility] Start: 2005 Depression Screening Depression Scre ening [facility] Start: 01-25-2004 DTaP,Tdap and Td Vaccines (6 - Tdap) DTaP,Tdap and Td Vaccines (6 - Tdap) [facility] Start: 1994 Varicella vaccine (1 of 2 - 2-dose childhood series) Varicella vaccine (1 of 2 - 2-dose childhood series) [employer] Start: 1993 COVID-19 Vaccine (#1) COVID-19 Vacci ne (#1) [facility] CHLAMYDIA TRACHOMATI S (GENITO/STI) CHLAMYDIA TRACHOMATIS (GENITO/STI) Lab Routine Exposure to STD Ordered: 08/03/20[address] [facility] Comment on above: Ordered: 08/03/2024 Continuous pulse oximetry Pulse oximetry, continuous Respiratory Care Routine Every 4hr until discontinued starting 07/03/2022 [facility] Phone: Comment on above: Every 4hr until disc ontinued starting 07/03/2022 Neisseria gonorrhoea e DNA [Presence] in Unspecified specimen by NEGRITO with probe detection Neisseria gonorrhea DNA probe, direct Lab Routine Exposure to STD Ordered: 08/03/2024 [facility] Comment on above: Ordered: 08/03/2024 Oxygen therapy [[facility]] Initiate Oxygen Therapy Protocol Respiratory Care Routine As Needed until discontinued starting 07/03/2022 [facility] Phone: Comment on above: As Needed until disc ontinued starting 07/03/2022 Spirometry panel Incentive brea metry Respiratory Care Routine Every 2hr while awake until discontinued starting 07/03/2022 [facility] Phone: Comment on above: Every 2hr while awak e until discontinued starting 07/03/2022 SURESWAB(R) ADVANCED VAGINITIS PLUS, TMA SURESWAB(R) ADVANCED VAGINITIS PLUS, TMA Pathology and Cytology Routine Exposure to STD Ordered: 08/03/2024 [facility] [employer] Comment on above: Ordered: 08/03/2024 Surgical Pathology Surgical Path ology Lab Routine Obesity, unspecified classification, unspecified obesity type, unspecified whether serious comorbidity present Gastroesophageal reflux disease, unspecified whether esophagitis present Release Upon Ordering for 1 Occurrences starting 07/03/2022 [facility] Isabel Phone: Comment on above: Release Upon Orderin g for 1 Occurrences starting 07/03/2022 End: 07-03-2022 SURGICAL PATHOLOGY REPORT SURGICAL PATHOLOGY REPORT Lab Routine Once for 1 Occurrences starting 07/03/2022 until 07/03/2022 TERVON BARCENAS [facility] Work Phone: Comment on above: Once for 1 Occurrenc es starting 07/03/2022 until 07/03/2022 Thyrotropin [Units/volume] in Serum or Plasma TSH Lab Routine 08/15/2024 9:17 AM EDT [facility] Work Phone: Immunizations Immunization Date Immunization Notes Care Provider [facility] 06-06-2024 RHO(D) immune globul in- IV or IM Ronaldo Mcnulty MD Work Phone: [employer] 07-11-2011 influenza virus vaccine, unspecified formulation Jake Miramontes Work Phone: [facility] Payers Date Payer Category Payer Medicaid [id number] 2022 Medicaid [id number] 2021 Unknown [employer] [id number] 2021-Present [phone] [address] [place] [address] [id number]. [id number] 2021 Unknown 1993 Unknown [id number] 2.16.840.1.410121.3.579.2.196 1993 Unknown [id number] 2.16.840.1.765071.3.579.2.593 1993 Unknown [id number] 2.16.840.1.098745.3.579.2.593 1993 Unknown [id number] 2.16.840.1.118374.3.579.2.593 1993 Unknown [id number] 2.16.840.1.011550.3.579.2.593 1993 Unknown [id number] 2.16.840.1.754437.3.579.2.175 1993 Unknown [id number] 2.16840.1.769142.3.579.2.1285 1993 Unknown [id number] 2.16.840.1.630026.3.579.2.1285 1993 Unknown [id number] 2.16840.1.354043.3.579.2.1285 1993 Unknown [id number] 2.16840.1.742771.3.579.2.1285 1993 Unknown [id number] 2.840.1.378078.3.579.2.1285 1993 Unknown [id number] 2.840.1.923194.3.579.2.1285 1993 Unknown [id number] 2.840.1.104774.3.579.2.1285 1993 Unknown [id number] 2.840.1.741666.3.579.2.1285 1993 Unknown [id number] 2.840.1.308016.3.579.2.1285 1993 Unknown [id number] 2.16840.1.610083.3.579.2.1285 1993 Unknown [id number] 2.840.1.423058.3.579.2.1285 1993 Unknown [id number] 2.16840.1.089329.3.579.2.1285 1993 Unknown [id number] 2.16840.1.348022.3.579.2.1285 1993 Unknown [id number] 2.16840.1.295532.3.579.2.1285 1993 Unknown [id number] 2.16840.1.304502.3.579.2.1285 1993 Unknown [id number] 2.16.840.1.947277.3.579.2.9 1993 Unknown [id number] 2.16.840.1.215947.3.579.2.9 1993 Unknown [id number] 2.16.840.1.696626.3.579.2.9 1993 Unknown [id number] 2.16.840.1.499880.3.579.2.9 1993 Unknown [id number] 2.16.840.1.721191.3.579.2.1258 1993 Unknown [id number] 2.16.840.1.838764.3.579.2.9 1993 Unknown [id number] 2.16.840.1.347172.3.579.2.1258 1993 Unknown [id number] 2.16.840.1.878242.3.579.2.1258 1993 Unknown [id number] 2.16.840.1.822838.3.579.2.1259 Social History Date Type Detail Facility Start: 06-15-2022 End: 06-12-2024 Tobacco smoking status VTIS Never smoked tobacco [facility] Start: 06-15-2022 End: 06-12-2024 Tobacco use and exposure Smokeless tobacco non-user [facility] Phone: Start: 07-04-2022 End: 11-01-2023 Alcohol intake Current drinker of alcohol (finding) [facility] Phone: Start: 12-21-2021 History SDOH Alcohol Comment occ [facility] Phone: Start: 1995 Sex Assigned At Not on file B ON [employer] Phone: Start: 06-08-2022 End: 06-18-2022 Exposure to SARS-CoV-2 (event) Not sure [employer] Work Phone: Start: 11-01-2023 End: 06-12-2024 History of Social function [facility] Start: 11-01-2023 End: 06-12-2024 Tobacco use panel [facility] Childcare Unknown [facility] Start: 08-05-2019 Alcohol Comment occassionally [facility] Start: 07-30-2024 End: 11-04-2024 Alcoholic beverage intake Ex-drinker (finding) [facility] Start: 01-19-2024 Alcohol Comment occasional [facility] Start: 04-20-2024 [facility] Start: 06-02-2015 Sex Female (finding) [facility] Medical Equipment Procedure Code Equipment Code Equipment Origin al Text Equipment Identifier Dates 1 strip by In Vi tro route Daily Use in the morning prior to breakfast, 1 hour after each meal for a total of 4times daily. [id number] Start: 09-29-2024 End: 11-04-2024 1 each by In Vit ro route Daily Use to check FSBS four times daily [id number] Start: 09-29-2024 End: 09-30-2024 USE 1 EACH TO CH ALESSANDRA GLUCOSE 4 TIMES DAILY [id number] Start: 09-30-2024 End: 11-04-2024 Clinical Notes 02-24-2021 to 12-02-2024 Tamy Collazo LPN - 12/02/2024 10:50 AM Faiza Mcnulty MD - 11/20/2024 10:00 AM Nghia Raza RN - 11/20/2024 10:00 AM Yelena Collazo LPN - 11/18/2024 3:00 PM ESTDischarge Instructions Note Date & Type Note Facility 12-02-2024 History of Present illness Narrative Reason for Appointment: Patient ID: Phillip Avalos is a 29 y.o. female who presents for Routine Visit Patient presents today for Return OB appointment. MEDICATIONS Current Outpatient Medications Medication Instructions ferrous sulfate 325 mg, Oral, Daily with breakfast ferrous sulfate 325 mg, Oral, Daily with breakfast iron polysaccharides (PROFE) 391.3 mg, Oral, Daily omeprazole (PRILOSEC) 20 mg, Oral, Daily before breakfast, Do not crush or chew. Oyster Shell Calcium 500 MG tablet 1 tablet, Oral, Daily Vit-Fe Fumarate-FA ( Vitamins) 28-0.8 MG tablet [...] Objective: Physical Exam Constitutional: Appearance: Normal appearance. She is well-developed. Cardiovascular: Rate and Rhythm: Normal rate and regular rhythm. Pulmonary: Effort: Pulmonary effort is normal. Breath sounds: Normal breath sounds. Abdominal: General: Bowel sounds are normal. There is no distension. Palpations: Abdomen is soft. Tenderness: There is no abdominal tenderness. There is no guarding or rebound. Musculoskeletal: General: No swelling. Normal range of motion. Right lower leg: No edema. Left lower leg: No edema. Neurological: Mental Status: She is alert and oriented to person, place, and time. Skin: General: Skin is warm and dry. Psychiatric: Mood and Affect: Mood normal. Behavior: Behavior normal. Vitals and nursing note reviewed. Exam conducted with a internal grinder set up operator present. Vitals: Estimated body mass index is 27.17 kg/m as calculated from the following: Height as of 03/13/23: 5' 11 . Weight as of this encounter: 194 lb 12.8 oz. BP: 110/72 Patient's last menstrual period was 04/06/2024. ASSESSMENT & PLAN ICD-10-CM 1. Third trimester Z34.93 POCT urinalysis dipstick manually resulted 2. 34 weeks gestation of Z3A.34 Return OB: Patient presents today for a routine obstetrics appointment. Patient is currently 34w2d . Patient states she is doing well but has complaints of being tired due to current . Patient has verbalizes frequent movement. labor precautions was discussed/given and patient was instructed to perform kick counts three times a day. Reviewed M ultrasound with pt in detail. Pt to start NST/BPP. Orders Placed This Encounter Procedures POCT urinalysis dipstick manually resulted Follow Up: Patient is to return to office in 2 week for routine OB appointment. Documented by Tamy Collazo LPN on behalf of: Jake Miramontes DO documented in this encounter [facility] 11-20-2024 History of Present illness Narrative REASON FOR CONSULTATION: Suspected ventriculomegaly HISTORY OF PRESENT ILLNESS: Phillip Avalos is a pleasant 29 y.o. G two P0 010. at 32w4d due on Estimated Date of Delivery: 01/11/25 . Patient was seen today due to the following 1. Maternal gastric sleeve procedure. Patient had robotic gastric sleeve procedure performed at [facility]. Patient has lost weight. Patient became after weight loss surgery. 2. History of maternal essential hypertension before weight loss surgery. After the weight loss essential hypertension has resolved. 3 Suspected ventriculomegaly ruled out. Normal but limited intracranial anatomy was seen due to advanced gestational age however no evidence of ventriculomegaly. Normal lateral ventricle. Normal appearing CSP. Normal appearing germinal matrix. 4. Large for gestational age fetus. Currently the patient has no complaints. The patient denies nausea, vomiting, abdominal pain, vaginal bleeding, SOB or chest pain. Patient's PMH/PSH,SH,PSYCH Hx, MEDs, ALLERGIES, and ROS were all reviewed and updated in the appropriate sections. Patient Active Problem List Diagnosis H/O gastric sleeve Past Medical History: Diagnosis Date Allergic Celiac disease Fractured pelvis (CMS-HCC) Syncope possible syncopal episodes after changing positions with working out or riding roller coasters Visual impairment wears glasses PAST OBSTETRICAL HISTORY: OB History 2 Para 0 Term AB 1 Living SAB 1 IAB Ectopic Multiple Live Births SURGICAL HISTORY: Past Surgical History: Procedure Laterality Date CHOLECYSTECTOMY COLONOSCOPY N/A 11/13/2018 Performed by Emanuel Reagan DO at [facility] EGD N/A 11/13/2018 Performed by Emanuel Reagan DO at [facility] LAPAROSCOPIC GASTRIC BANDING ALLERGIES: Allergies Allergen Reactions Bactrim [Sulfamethoxazole-Trimethoprim] Hives Hives to face Latex CURRENT MEDICATIONS: Current Outpatient Medications: famotidine (PEPCID) 20 mg tablet, Take 1 tablet (20 mg total) by mouth in the morning and 1 tablet (20 mg total) before bedtime. (Patient not taking: Reported on 05/26/2024), Disp: 20 tablet, Rfl: 0 metFORMIN (GLUCOPHAGE) 500 mg tablet, Take 1 tablet (500 mg total) by mouth in the morning and 1 tablet (500 mg total) before bedtime. (Patient not taking: Reported on 11/01/2023), Disp: , Rfl: atsnnvsp-oniy-KG-calcium &mins (THERAGRAN-M) 9 mg iron-400 mcg tablet, Take 1 tablet by mouth in the morning., Disp: , Rfl: FAMILY/GENETIC HISTORY: No family history of VTE, cardiac defects and mental retardation . SOCIAL HISTORY:Patient denies tobacco use, alcohol use, or drug use. RECENT HOSPITALIZATION: none I did review all the labs results available in addition to labs which were ordered by the primary care physician, and the other consultants, we search on [employer] and all the available care everywhere epic I did review all the imaging studies of the patient available on EMR, ordered by the primary care physician and the other tax consultant HABITS: Patient activity no restrictions, diet no restrictions REVIEW OF SYSTEM: Head and Neck: Negative for any dizziness and headaches. Cardiovascular and Respiratory System: Denies any chest pain, shortness of breath, and coughing. Abdominal and System: Denies any abdominal pain, nausea, vomiting, vaginal bleeding, and vaginal discharge Social Determinants of Health Financial Resource Strain: n Food Insecurity: n Transportation Needs: n Physical Activity: y Social Connections: y Intimate Partner Violence: n Housing Stability: y PHYSICAL EXAMINATION: LMP 04/06/2024 . Gravid abdomen, Respirations not labored. Well oriented time place person, normal gait MEDICAL DECISION MAKING DISCUSSION: I informed the patient that unlike malabsorptive procedure that decrease the effectiveness of nutrient absorption by shortening the length of the functional small intestine either through bypass of the small bowel or a diversion, the restrictive procedure have low complications during . Gastric sleeve procedure is a restrictive procedure that limits the caloric intake by reducing the stomach capacity and therefore, the patients have decreased caloric intake due to small amount of reservoir in the stomach. These pregnancies usually are uncomplicated as long as the patient has gone through her weight reduction. should be managed with serial growth ultrasounds every 4 weeks [address] Ms. Muñoz's office and a comprehensive metabolic profile along with a CBC around 34 to 36 weeks' gestation. Iron deficiency anemia sometimes is a complication and needs to be aggressively treated via IV iron supplementation if not responding to oral. should be managed routinely can be delivered at her local hospital. RECOMMENDATION: 1. Limited but normal targeted anatomy seen on today's ultrasound. 2. No evidence of ventriculomegaly. 3. Routine care OB provider and term spontaneous delivery at local hospital is anticipated with C section reserve for routine obstetrical indications. 4. Large for gestational age fetus. Please continue serial growth ultrasounds at her OB office DISPOSITION: At this point the patient is in complete care of her picker and sorter load and unload. Patient does not have any future appointment scheduled with us. Thank you for allowing me to participate in Phillip Avalos . If there any questions please do not hesitate to contact us. Sincerely, RONALDO MCNULTY MD Headache/epigastric pain/blurry vision/swelling? No Cramping/contractions? [place] [facility] Abnormal vaginal discharge? No Spotting/vaginal bleeding? Patient reports spotting earlier in , has since resolved Loss or gush of fluid like your water may have broken? No Do you have cats at home? Yes Do you change the litter box (reason: risk of toxoplasmosis)? N/A Genetic testing done this here or other office? No Have you been seen here at [facility] in a previous ? No Recent ER visits or hospitalizations? No Bring blood sugar log or meter with you today? (Please bring them with you for every visit at [facility]) N/A Flu vaccine (Aug-December)? No Any concerns that you would like me to mention to the provider today? No documented in this encounter [facility] 11-18-2024 History of Present illness Narrative Reason for Appointment: Patient ID: Phillip Avalos is a 29 y.o. female who presents for Routine Visit Patient presents today for Return OB appointment. MEDICATIONS Current Outpatient Medications Medication Instructions ferrous sulfate 325 mg, Oral, Daily with breakfast ferrous sulfate 325 mg, Oral, Daily with breakfast iron polysaccharides (PROFE) 391.3 mg, Oral, Daily omeprazole (PRILOSEC) 20 mg, Oral, Daily before breakfast, Do not crush or chew. Oyster Shell Calcium 500 MG tablet 1 tablet, Oral, Daily Vit-Fe Fumarate-FA ( Vitamins) 28-0.8 MG tablet [...] Objective: Physical Exam Constitutional: Appearance: Normal appearance. She is well-developed. Cardiovascular: Rate and Rhythm: Normal rate and regular rhythm. Pulmonary: Effort: Pulmonary effort is normal. Breath sounds: Normal breath sounds. Abdominal: General: Bowel sounds are normal. There is no distension. Palpations: Abdomen is soft. Tenderness: There is no abdominal tenderness. There is no guarding or rebound. Musculoskeletal: General: No swelling. Normal range of motion. Right lower leg: No edema. Left lower leg: No edema. Neurological: Mental Status: She is alert and oriented to person, place, and time. Skin: General: Skin is warm and dry. Psychiatric: Mood and Affect: Mood normal. Behavior: Behavior normal. Vitals and nursing note reviewed. Exam conducted with a internal grinder set up operator present. Vitals: Estimated body mass index is 27.06 kg/m as calculated from the following: Height as of 03/13/23: 5' 11 . Weight as of this encounter: 194 lb. BP: 116/68 Patient's last menstrual period was 04/06/2024. ASSESSMENT & PLAN ICD-10-CM 1. Third trimester Z34.93 POCT urinalysis dipstick manually resulted 2. 32 weeks gestation of Z3A.32 Return OB: Patient presents today for a routine obstetrics appointment. Patient is currently 32w2d . Patient states she is doing well but has complaints of being tired due to current . Patient has verbalizes frequent movement. labor precautions was discussed/given and patient was instructed to perform kick counts three times a day. Orders Placed This Encounter Procedures POCT urinalysis dipstick manually resulted Follow Up: Patient is to return to office in 2 week for routine OB appointment. Documented by Tamy Collazo LPN on behalf of: Jake Miramontes DO documented in this encounter [facility] 11-04-2024 History of Present illness Narrative Reason for Appointment: Patient ID: Phillip Avalos is a 29 y.o. female who presents for No chief complaint on file. Patient presents today for Return OB appointment. MEDICATIONS Current Outpatient Medications Medication Instructions iron polysaccharides (PROFE) 391.3 mg, Oral, Daily omeprazole (PRILOSEC) 20 mg, Oral, Daily before breakfast, Do not crush or chew. Oyster Shell Calcium 500 MG tablet 1 tablet, Oral, Daily Vit-Fe Fumarate-FA ( Vitamins) 28-0.8 MG tablet [...] Heart disease Maternal Grandmother G SURGICAL HISTORY History reviewed. No pertinent surgical history. REVIEW OF SYSTEMS Review of Systems: Review of Systems Constitutional: Negative. HENT: Negative. Eyes: Negative. Respiratory: Negative. Cardiovascular: Negative. Gastrointestinal: Negative. Genitourinary: Negative. Musculoskeletal: Negative. Skin: Negative. Neurological: Negative. All other systems reviewed and are negative. Hematological: Negative. Endocrine: Negative. Allergic/Immunologic: Negative. OBJECTIVE Objective: Physical Exam Constitutional: Appearance: Normal appearance. She is well-developed. Cardiovascular: Rate and Rhythm: Normal rate and regular rhythm. Pulmonary: Effort: Pulmonary effort is normal. Breath sounds: Normal breath sounds. Abdominal: General: Bowel sounds are normal. There is no distension. Palpations: Abdomen is soft. Tenderness: There is no abdominal tenderness. There is no guarding or rebound. Musculoskeletal: General: No swelling. Normal range of motion. Right lower leg: No edema. Left lower leg: No edema. Neurological: Mental Status: She is alert and oriented to person, place, and time. Skin: General: Skin is warm and dry. Psychiatric: Mood and Affect: Mood normal. Behavior: Behavior normal. Vitals and nursing note reviewed. Exam conducted with a internal grinder set up operator present. Vitals: Estimated body mass index is 27.03 kg/m as calculated from the following: Height as of 03/13/23: 5' 11 . Weight as of this encounter: 193 lb 12.8 oz. BP: 120/70 Patient's last menstrual period was 04/06/2024. ASSESSMENT & PLAN ICD-10-CM 1. 30 weeks gestation of Z3A.30 POCT urinalysis dipstick manually resulted 2. Third trimester Z34.93 POCT urinalysis dipstick manually resulted 3. Diabetes mellitus screening Z13.1 CBC and differential CBC and differential CANCELED: Hemoglobin A1c Return OB: Patient presents today for a routine obstetrics appointment. Patient is currently 30w2d . Patient states she is doing well but has complaints of being tired due to current . Patient has verbalizes frequent movement. labor precautions was discussed/given and patient was instructed to perform kick counts three times a day. Orders Placed This Encounter Procedures CBC and differential POCT urinalysis dipstick manually resulted Follow Up: Patient is to return to office in 2 week for routine OB appointment. Documented by Tamy Collazo LPN on behalf of: Jake Miramontes DO documented in this encounter [facility] 10-22-2024 History of Present illness Narrative Reason for Appointment: Patient ID: Phillip Avalos is a 29 y.o. female who presents for No chief complaint on file. Patient presents today for Return OB appointment. MEDICATIONS Current Outpatient Medications Medication Instructions Alcohol Swabs (Alcohol Prep Pad) 70 % pads 1 Pad, Topical, Daily, Use four times daily to check FSBS. Blood Glucose Monitoring Suppl (D-Care Glucometer) w/Device kit 1 kit, Does not apply, Daily, Use four times daily to check FSBS. In the morning prior to breakfast & 1 hour after each meal for a total of 4times daily. Glucose Blood (Blood Glucose Test) strip 1 strip, In Vitro, Daily, Use in the morning prior to breakfast, 1 hour after each meal for a total of 4times daily. iron polysaccharides (PROFE) 391.3 mg, Oral, Daily metoclopramide (REGLAN) 10 mg, Oral, 3 times daily before meals, Take 1 tablet by mouth 30 minutes prior to meals 3 times daily as needed for nausea. omeprazole (PRILOSEC) 20 mg, Oral, Daily before breakfast, Do not crush or chew. Oyster Shell Calcium 500 MG tablet 1 tablet, Oral, Daily Vit-Fe Fumarate-FA ( Vitamins) 28-0.8 MG tablet 1 tablet, Oral, Daily TRUEplus Lancets 33G misc USE 1 EACH TO CHECK GLUCOSE 4 TIMES DAILY ALLERGIES Allergies Allergen Reactions Latex Itching and [...] Heart disease Maternal Grandmother G SURGICAL HISTORY History reviewed. No pertinent surgical history. REVIEW OF SYSTEMS Review of Systems: Review of Systems Constitutional: Negative. HENT: Negative. Eyes: Negative. Respiratory: Negative. Cardiovascular: Negative. Gastrointestinal: Negative. Genitourinary: Negative. Musculoskeletal: Negative. Skin: Negative. Neurological: Negative. All other systems reviewed and are negative. Hematological: Negative. Endocrine: Negative. Allergic/Immunologic: Negative. OBJECTIVE Objective: Physical Exam Constitutional: Appearance: Normal appearance. She is well-developed. Cardiovascular: Rate and Rhythm: Normal rate and regular rhythm. Pulmonary: Effort: Pulmonary effort is normal. Breath sounds: Normal breath sounds. Abdominal: General: Bowel sounds are normal. There is no distension. Palpations: Abdomen is soft. Tenderness: There is no abdominal tenderness. There is no guarding or rebound. Musculoskeletal: General: No swelling. Normal range of motion. Right lower leg: No edema. Left lower leg: No edema. Neurological: Mental Status: She is alert and oriented to person, place, and time. Skin: General: Skin is warm and dry. Psychiatric: Mood and Affect: Mood normal. Behavior: Behavior normal. Vitals and nursing note reviewed. Exam conducted with a internal grinder set up operator present. Vitals: Estimated body mass index is 26.33 kg/m as calculated from the following: Height as of 03/13/23: 5' 11 . Weight as of this encounter: 188 lb 12.8 oz. BP: 110/70 Patient's last menstrual period was 04/06/2024. ASSESSMENT & PLAN ICD-10-CM 1. 28 weeks gestation of Z3A.28 POCT urinalysis dipstick manually resulted 2. Third trimester Z34.93 POCT urinalysis dipstick manually resulted Return OB: Patient presents today for a routine obstetrics appointment. Patient is currently 28w3d . Patient states she is doing well but has complaints of being tired due to current . Patient has verbalizes frequent movement. labor precautions was discussed/given and patient was instructed to perform kick counts three times a day. Reviewed glucose log with pt in detail. Pt has MFM appt on 11/02/24. Orders Placed This Encounter Procedures POCT urinalysis dipstick manually resulted Follow Up: Patient is to return to office in 2 week for routine OB appointment. Documented by Tamy Collazo LPN on behalf of: Jkae Miramontes DO documented in this encounter [facility] 09-29-2024 History of Present illness Narrative Reason for Appointment: Patient ID: Phillip Avalos is a 29 y.o. female who presents for Routine Visit Patient presents today for Return OB appointment. MEDICATIONS Current Outpatient Medications Medication Instructions iron polysaccharides (PROFE) 391.3 mg, Oral, Daily metoclopramide (REGLAN) 10 mg, Oral, 3 times daily before meals, Take 1 tablet by mouth 30 minutes prior to meals 3 times daily as needed for nausea. omeprazole (PRILOSEC) 20 mg, Oral, Daily before breakfast, Do not crush or chew. Oyster Shell Calcium 500 MG tablet 1 tablet, Oral, Daily Vit-Fe Fumarate-FA ( Vitamins) 28-0.8 MG tablet [...] Heart disease Maternal Grandmother G SURGICAL HISTORY History reviewed. No pertinent surgical history. REVIEW OF SYSTEMS Review of Systems: Review of Systems Constitutional: Negative. HENT: Negative. Eyes: Negative. Respiratory: Negative. Cardiovascular: Negative. Gastrointestinal: Negative. Genitourinary: Negative. Musculoskeletal: Negative. Skin: Negative. Neurological: Negative. All other systems reviewed and are negative. Hematological: Negative. Endocrine: Negative. Allergic/Immunologic: Negative. OBJECTIVE Objective: Physical Exam Constitutional: Appearance: Normal appearance. She is well-developed. Cardiovascular: Rate and Rhythm: Normal rate and regular rhythm. Pulmonary: Effort: Pulmonary effort is normal. Breath sounds: Normal breath sounds. Abdominal: General: Bowel sounds are normal. There is no distension. Palpations: Abdomen is soft. Tenderness: There is no abdominal tenderness. There is no guarding or rebound. Musculoskeletal: General: No swelling. Normal range of motion. Right lower leg: No edema. Left lower leg: No edema. Neurological: Mental Status: She is alert and oriented to person, place, and time. Skin: General: Skin is warm and dry. Psychiatric: Mood and Affect: Mood normal. Behavior: Behavior normal. Vitals and nursing note reviewed. Exam conducted with a internal grinder set up operator present. Vitals: Estimated body mass index is 25.8 kg/m as calculated from the following: Height as of 03/13/23: 5' 11 . Weight as of this encounter: 185 lb. BP: 102/72 Patient's last menstrual period was 04/06/2024. ASSESSMENT & PLAN ICD-10-CM 1. Second trimester Z34.92 POCT urinalysis dipstick manually resulted 2. 25 weeks gestation of Z3A.25 POCT urinalysis dipstick manually resulted 3. Diabetes mellitus screening Z13.1 CBC Glucose tolerance, 1 hour CBC Glucose tolerance, 1 hour Return OB: Patient presents today for a routine obstetrics appointment. Patient is currently 25w1d . Patient states she is doing well but has complaints of being tired due to current . Patient has verbalizes frequent movement. labor precautions was discussed/given and patient was instructed to perform kick counts three times a day. Pt states vitamin d and calcium are low. Pt taking . Pt given cbc orders. Pt cannot tolerate glucola- glucose monitoring system faxed to pharmacy. Pt to check sugars 4 times a day. Orders Placed This Encounter Procedures CBC Glucose tolerance, 1 hour POCT urinalysis dipstick manually resulted Follow Up: Patient is to return to office in 3 week for routine OB appointment. Documented by Tamy Collazo LPN on behalf of: Jake Miramontes DO documented in this encounter [facility] 09-01-2024 History of Present illness Narrative Reason for Appointment: Patient ID: Phillip Avalos is a 29 y.o. female who presents for No chief complaint on file. Patient presents today for Return OB appointment. MEDICATIONS Current Outpatient Medications Medication Instructions iron polysaccharides (PROFE) 391.3 mg, Oral, Daily metoclopramide (REGLAN) 10 mg, Oral, 3 times daily before meals, Take 1 tablet by mouth 30 minutes prior to meals 3 times daily as needed for nausea. omeprazole (PRILOSEC) 20 mg, Oral, Daily before [...] Heart disease Maternal Grandmother G SURGICAL HISTORY History reviewed. No pertinent surgical history. REVIEW OF SYSTEMS Review of Systems: Review of Systems Constitutional: Negative. HENT: Negative. Eyes: Negative. Respiratory: Negative. Cardiovascular: Negative. Gastrointestinal: Negative. Genitourinary: Negative. Musculoskeletal: Negative. Skin: Negative. Neurological: Negative. All other systems reviewed and are negative. Hematological: Negative. Endocrine: Negative. Allergic/Immunologic: Negative. OBJECTIVE Objective: Physical Exam Constitutional: Appearance: Normal appearance. She is well-developed. Cardiovascular: Rate and Rhythm: Normal rate and regular rhythm. Pulmonary: Effort: Pulmonary effort is normal. Breath sounds: Normal breath sounds. Abdominal: General: Bowel sounds are normal. There is no distension. Palpations: Abdomen is soft. Tenderness: There is no abdominal tenderness. There is no guarding or rebound. Musculoskeletal: General: No swelling. Normal range of motion. Right lower leg: No edema. Left lower leg: No edema. Neurological: Mental Status: She is alert and oriented to person, place, and time. Skin: General: Skin is warm and dry. Psychiatric: Mood and Affect: Mood normal. Behavior: Behavior normal. Vitals and nursing note reviewed. Exam conducted with a internal grinder set up operator present. Vitals: Estimated body mass index is 24.69 kg/m as calculated from the following: Height as of 03/13/23: 5' 11 . Weight as of this encounter: 177 lb. BP: 100/60 Patient's last menstrual period was 04/06/2024. ASSESSMENT & PLAN ICD-10-CM 1. 21 weeks gestation of Z3A.21 POCT urinalysis dipstick manually resulted 2. Second trimester Z34.92 POCT urinalysis dipstick manually resulted Patient presents today for a routine obstetrics appointment. Patient is currently 21w1d with a Estimated Date of Delivery: 01/11/25. Pt had anatomy scan prior to appt. Pt to return in 4 weeks. Reviewed anatomy scan with pt in detail. Documented by Tamy Collazo LPN on behalf of: Jake Miramontes DO documented in this encounter [facility] 08-03-2024 History of Present illness Narrative Reason for Appointment: Patient ID: [...] nursing note reviewed. Exam conducted with a internal grinder set up operator present. Vitals: Estimated body mass index is [...] Glenda Cristina MA on behalf of: MORA aJckson documented in this encounter [facility] 07-07-2024 History of Present illness Narrative Reason for Appointment: Patient ID: Phillip Avalos is a 29 y.o. female who presents for Routine Visit Patient presents today for Return OB appointment. MEDICATIONS Current Outpatient Medications Medication Instructions calcium 500 mg, Oral, Daily iron polysaccharides (PROFE) 391.3 mg, Oral, Daily omeprazole (PRILOSEC) 20 mg, Oral, Daily before breakfast, Do not crush or chew. Vit-Fe Fumarate-FA ( Vitamins) 28-0.8 MG tablet 1 tablet, Oral, Daily ALLERGIES Allergies Allergen Reactions Latex Itching PROBLEMS Active Ambulatory Problems Diagnosis Date Noted [...] Heart disease Maternal Grandmother G SURGICAL HISTORY History reviewed. No pertinent surgical history. REVIEW OF SYSTEMS Review of Systems: Review of Systems Constitutional: Negative. HENT: Negative. Eyes: Negative. Respiratory: Negative. Cardiovascular: Negative. Gastrointestinal: Negative. Genitourinary: Negative. Musculoskeletal: Negative. Skin: Negative. Neurological: Negative. All other systems reviewed and are negative. Hematological: Negative. Endocrine: Negative. Allergic/Immunologic: Negative. OBJECTIVE Objective: Physical Exam Constitutional: Appearance: Normal appearance. She is well-developed. Cardiovascular: Rate and Rhythm: Normal rate and regular rhythm. Pulmonary: Effort: Pulmonary effort is normal. Breath sounds: Normal breath sounds. Abdominal: General: Bowel sounds are normal. There is no distension. Palpations: Abdomen is soft. Tenderness: There is no abdominal tenderness. There is no guarding or rebound. Musculoskeletal: General: No swelling. Normal range of motion. Right lower leg: No edema. Left lower leg: No edema. Neurological: Mental Status: She is alert and oriented to person, place, and time. Skin: General: Skin is warm and dry. Psychiatric: Mood and Affect: Mood normal. Behavior: Behavior normal. Vitals and nursing note reviewed. Exam conducted with a internal grinder set up operator present. Vitals: Estimated body mass index is 22.59 kg/m as calculated from the following: Height as of 03/13/23: 5' 11 . Weight as of this encounter: 162 lb. BP: 110/60 Patient's last menstrual period was 04/06/2024. ASSESSMENT & PLAN ICD-10-CM 1. 13 weeks gestation of Z3A.13 POCT urinalysis dipstick manually resulted 2. Gastroesophageal reflux in O99.619 omeprazole (PriLOSEC) [address] capsule K21.9 New OB: Patient presents today for 1st time obstetrics appointment with provider. Patient is currently 13w1d . Patients history has been reviewed in great detail including any potential risks. Patient stated she currently has acid reflux, rx for omeprazole faxed to pharmacy. Expectations throughout regarding labs, ultrasounds, and appointments have been discussed with the patient in detail. It was reiterated that the patient is to drink 6-8 glasses of water a day, eat 6 small meals a day, do not consume raw or undercooked meat, and stay away from [facility]. Patient has been consulted regarding any further do's and don'ts of . Patient voiced understanding and all questions and concerns were answered. Orders Placed This Encounter Procedures POCT urinalysis dipstick manually resulted Follow Up: Patient is to return in 4 weeks for routine OB appointment. Documented by Tamy Collazo LPN on behalf of: Jake Miramontes DO documented in this encounter [facility] 07-04-2022 History of Present illness Narrative Patient [...] or 07/03/22 documented in this encounter [facility] Phone: 07-04-2022 Hospital Discharge instructions Garrett Corcoran DO - 07/04/2022 8:07 AM EDT Discharge Instructions for Bariatric Surgery You had a Laparoscopic Sleeve Gastrectomy (67023) surgery to treat obesity. Recovery from this [...] scheduled appointment, please call the office at [phone]. Call Your Doctor If Any of the [...] 911 immediately. documented in this encounter [facility] Phone: 02-24-2021 Note Chief Complaint Referral for bloating, [...] states she had a colonoscopy performed in [facility] in 2018 as well as EGD and [...] stools Alleviating Factors: None Weight Loss: None Stools/blood/character/frequency : Intermittently greasy followed abdominal pain with blood at the end of her stools she says they are mucoid-like in nature N/V/blood/frequency: Positive nausea Pembroke Score: Typically she rates it for although up to 6 with blood MELD Score: [place] IV Score: Previous Labs: She states [place] blood work [place] although I currently do not have the [...] areas. Neurologic: Awake, (more content not included)... [facility] Evaluation note Diagnosis S/P laparoscopic sleeve gastrectomy- Primary Obesity, unspecified classification, unspecified obesity type, unspecified whether serious comorbidity present Gastroesophageal reflux disease, unspecified whether esophagitis present documented in this encounter [facility] Work Phone: evaluation note* Diagnosis Female infertility associated with anovulation Personal history of other diseases of the female genital tract [facility] Diagnosis Well woman exam with routine gynecological exam Routine gynecological examination Exposure to STD Need for maternal serum alpha-protein (MSAFP) screening Second trimester state, incidental 17 weeks gestation of Screening, , for anatomic survey Encounter for anatomic survey documented in this encounter [facility]* Diagnosis 21 weeks gestation of Second trimester state, incidental documented [facility] encounter [facility]* Diagnosis Second trimester state, incidental 25 weeks gestation of Diabetes mellitus screening Screening for diabetes mellitus Gestational diabetes mellitus (GDM), antepartum, gestational diabetes method of control unspecified Elevated glucose tolerance test Impaired glucose tolerance test documented [facility] this encounter [facility]* Diagnosis 13 weeks gestation of Gastroesophageal reflux in documented in this encounter [facility]* Diagnosis 28 weeks gestation of Third trimester state, incidental documented in this encounter [facility]* Diagnosis 30 weeks gestation of Third trimester state, incidental Diabetes mellitus screening Screening for diabetes mellitus documented in this encounter [facility]* Diagnosis H/O gastric sleeve- Primary documented in this encounter [facility]* Diagnosis Third trimester state, incidental 32 weeks gestation of documented in this encounter [facility]* Diagnosis Third trimester state, incidental 34 weeks gestation of Excessive growth affecting management of , antepartum, single or unspecified fetus documented [facility]ructionsNot on filedocumented in this encounterPro[facility] SystemInstructionsNot on filedocumented in this encounterPro[facility] Summary Purpose Family History No Family [...] section and content) DATE CREATED AUTHOR 02/28/2021 [facility] DATE CREATED AUTHOR AUTHOR'S ORGANIZ ATION 04/27/2021 [facility] DATE CREATED AUTHOR AUTHOR'S ORGANIZ ATION 03/14/2023 [facility] DATE CREATED AUTHOR AUTHOR'S ORGANIZ ATION 11/29/2023 [facility] DATE CREATED AUTHOR AUTHOR'S ORGANIZ ATION 11/14/2024 [facility] DATE CREATED AUTHOR AUTHOR'S ORGANIZ ATION 12/04/2024 [facility] EPIC Reason for Visit (unrecogniz ed section and content) Specialty Diagnoses / Procedures Referred By Sis t Referred To Contact Diagnoses Obesity, unspecified classification, unspecified obesity type, unspecified whether serious comorbidity present Gastroesophageal reflux disease, unspecified whether esophagitis present OBESITY, GERD Procedures MO LAP, MEHUL RESTRICT PROC, LONGITUDINAL GASTRECTOMY XI ROBOTIC LAPAROSCOPIC GASTRECTOMY SLEEVE, EGD, LIVER BIOPSY - GI SCHEDULED Bret Manuel DO [address] [facility] [address] [place] [address] [facility] [address] [place] [address] Referral ID Status Reason Start Date Expiration Date Visits Re quested Visits Authorized [id number] 1 1 Reason Comments Routine Visit Reason Comments Routine Visit Reason Comments Prominent Lateral Ventricles Ordered Prescriptions (unrec ognized section and content) [...] (Given - Provider: Robert Cobb APRN - INSOLE CEMENTER) heparin (porcine) injection 5,000 Units (COMPLETED) 5,000 [...] Provider: Bandar Burns RN)1322 (NoRateChange - Provider: Robert Cobb APRN - INSOLE CEMENTER)1413 (Paused - Provider: Robert Cobb APRN - INSOLE CEMENTER - Comment: Switch to gravity)1414 (Restarted - Provider: Robert Cobb APRN - INSOLE CEMENTER)1456 (New Bag - Provider: Robert Cbob APRN - INSOLE CEMENTER)1630 (Anesthesia Volume Adjustment - Provider: Robert Cobb APRN - INSOLE CEMENTER) 1354 (Stopped - Provider: Donna Trammell, SUZANNE) lactated ringers infusion (CANCELED) IntraVENous, at 125 mL/hr, CONTINUOUS, Starting on Sat07/03/22 at 1800, Post-op 1637 (New Bag - Provider: Gypsy Stoner RN)2113 (New Bag - Provider: Chichi Kwong, SUZANNE) 0520 (New Bag - Provider: Chichi Kwong, [...] order., Post-op 1339 (Stopped - Provider: Donna Trammell, SUZANNE) benzocaine-menthol (CEPACOL SORE THROAT) lozenge 1 lozenge [...]
Care Teams (unrecognized sec tion and content) Mechanical Engineering Intern Relationship Specialty Start Date End Date Jake Miramontes MD [address] [place] [address] PCP - General Obstetrics & Gynecology 06/18/22 Mechanical Engineering Intern Relationship Specialty Start Date End Date Karina Lopez DO [address] [place] [address] PCP - General Family Medicine 11/01/23 Mechanical Engineering Intern Relationship Specialty Start Date End Date Jake Miramontes DO [address] [place] [address] PCP - General Obstetrics & Gynecology 06/06/24 FOR RECORDS PERTAINING TO PATIENTS WHO ARE [...] BE BASED ON THE PRIMARY CLINICAL RECORDS. [employer] provides no warranty or guarantee of the accuracy or completeness of information in this document.
--- NOTE | 2024-12-10 10:45 | US_ITS ---
[address] [address] Patient Name: SKYLER NORIEGA MRN: [id number] date: 1995 Sex: F Assigned Patient Location: [facility] Current Patient Location: [facility] Accession/Order Number: [id number] Exam Date: 12/10/2024 10:46 Report Date: 12/10/2024 11:25 At the request of: GERALDINE HOLLIDAY Procedure: US OB BPP w non-stress EXAMINATION: US OB BPP w non-stress HISTORY:Excessive growth COMPARISON: Ultrasound OB growth 10/15/2024 TECHNIQUE: Ultrasound biophysical profile was performed in the radiology department. BREATHING MOVEMENTS: 2 GROSS BODY MOVEMENTS: 2 TONE: 2 QUALITATIVE AMNIOTIC FLUID VOLUME: 2 PRESENTATION: CEPHALIC HEART RATE: 155.17 bpm AMNIOTIC FLUID VOLUME: 11.98 cm GESTATIONAL AGE: 35 weeks 3 days US/US OB BPP w non-stress IMPRESSION: 1. Total biophysical profile score: 8 Electronically authenticated by: MARIBELL LYNN Date: 12/10/2024 11:25
[2024-12-10 11:03] VITALS: BP 120/73; PULSE 67
== END 2024-12-10 11:25 | disposition home or self-care (01) ==
LOC: US 02:57 → FBC 10:40
PROVIDERS: Visit Provider Obstetrics & Gynecology
DX: O36.63X0 Maternal care for excessive fetal growth, third trimester, not applicable or unspecified (principal); Z3A.35 35 weeks gestation of pregnancy
CPT/HCPCS: 76818

== ENCOUNTER 2024-12-16 01:11 | Outpatient (OUT) | payer MEDICAID, SELFPAY ==
--- NOTE | 2024-12-16 | US_ITS ---
[facility] [place] [address] Patient Name: SKYLER NORIEGA MRN: [id number] date: 1995 Sex: F Assigned Patient Location: [facility] Current Patient Location: Accession/Order Number: [id number] Exam Date: 12/17/2024 10:08 Report Date: 12/17/2024 10:11 At the request of: GERALDINE HOLLIDAY DO Procedure: US OB BPP w non-stress BIOPHYSICAL PROFILE: CLINICAL INFORMATION: Excessive growth O36.60x0 COMPARISON: 12/10/2024 There is a fetus in cephalic presentation. Reported gestational age is 36 weeks 2 days. The heart rate [id number] beats per minute. FINDINGS: TONE: 1 or more episodes of activity extension and flexion of extremity or opening and closing of the hand [Y] 2/2 GROSS BODY MOVEMENTS: 3 or more discrete body or limb movements [Y] 2/2 BREATHING MOVEMENTS: 1 or more episodes of breathing lasting at least 30 seconds [Y] 2/2 JOHN: A single deepest vertical pocket of amniotic fluid greater than 2 cm [Y] 2/2 JOHN: 11.3 cm This is within normal range Total score: 8/8 US/US OB BPP w non-stress IMPRESSION: NORMAL BIOPHYSICAL PROFILE. Impression dictated by: Tamy Jiménez M.D.12/17/2024 10:11 AM Dictation Location: [employer] Electronically authenticated by: [id number] Y Date: 12/17/2024 10:11
--- OUTSIDE RECORDS SUMMARY | 2024-12-16 01:15 | XMS_ITS | CCD ---
Author Organization [facility] Care Team Providers Care Sales Service Executive Name Role Phone Ct LEAL, Chayo Mina [...] REQUEST, NONE LISTED Primary Care Unavaila ble ASTORIA, DR NATALIE Yung Consulting Unavailable FE ., DR CHANDLER Attending Unavailable FE ., DR CHANDLER Consulting Unavailable REQUEST, DR NONE LISTED Consulting Unavaila BRET Way Attending Unavailable BRET MANUEL Admitting Unavailable JAKE MIRAMONTES Primary Care Unavailable Unavailable Primary Care Provider Unavailabl e RUMSCHLAG, KARINA K Referring Unavailable RUMSCHLAG, KARINA K Primary Care Unavailable RUMSCHLAG, KARINA K Primary Care Unavailable MOOSA, HALI F Referring Unavailable GETSCHLAG, KARINA K Primary Care Unavailable JAKE MIRAMONTES Referring Unavailable RUMSCHLAG, KARINA K Primary Care Unavailable RUMSCHLAG, KARINA K Referring Unavailable RUMSCHLAG, KARINA K Primary Care Unavailable MOOSA, HALI F Referring Unavailable RUMSCHLAG, KARINA K Primary Care Unavailable JAKE MIRAMONTES Referring Unavailable FE, JAKE R Referring Unavailable [...] Fe DO, Jake R Primary Care Provider FE, JAKE Attending Unavailable FE, JAKE Attending Unavailable FE, JAKE Attending Unavailable KATHERINE DE LA TORRE Attending Unavailable FE, JAKE Attending Unavailable FE, JAKE Attending Unavailable FE, JAKE Attending Unavailable FE, JAKE Attending Unavailable Rumschlag DO, Karina K Primary Care Provider Allergies Allergy Classification Reported Allergen(s) Allergy Type Date of Onset Reaction(s) Facility (5 sources) Latex; Translations: [LATEX] Propensity to adverse reactions to drug 09-22-20 [facility] (20 sources) Sulfamethoxazole / Trimethoprim; Translations: [SULFAMETHOXAZOLE-T RIMETHOPRIM] Drug Allergy 07-02-20 17 [facility] Work Phone: (20 sources) Latex Propensity [...] Active calcium carbonate 1250 mg oral tablet (17 sources) Start: 09-07-2024 take 1 tablet by [...] 07/18/2022 Active famotidine 20 mg oral tablet (3 sources) Histamine-2 Receptor Antagonist Start: 11-02-2023 take 1 tablet by mouth in the morning, then take 1 tablet by mouth at bedtime famotidine (PEPCID) 20 mg tablet Take 1 tablet (20 mg total) by mouth in the morning and 1 tablet (20 mg total) before bedtime. 20 tablet 11/02/2023 Active ferrous sulfate 325 mg oral tablet (19 sources) Start: 11-03-2024 End: 11-05-2025 take 1 tablet by mouth at mealtime ferrous sulfate 325 (65 Fe) MG tablet Indications: Antepartum anemia Take 1 tablet (325 mg) by mouth in the morning. Take with meals. 30 tablet 11 11/05/2024 11/05/2025 Active 1 ml heparin sodium, porcine 5000 [...] mg metFORMIN hydrochloride 500 mg oral tablet (3 sources) Biguanide take 1 tablet by mouth in the morning, then take 1 tablet by mouth at bedtime metFORMIN (GLUCOPHAGE) 500 mg tablet Take 1 tablet (500 mg total) by mouth in the morning and 1 tablet (500 mg total) before bedtime. Active dacpwveb-mgms-KZ-calcium &mins (THERAGRAN-M) 9 mg iron-400 mcg tablet (3 sources) mvfvbfmn-kaig-CC -calcium &mins (THERAGRAN-M) 9 mg iron-400 mcg tablet Take 1 tablet by mouth in the morning. Active fythwoxb-qbgl-XY -calcium &mins (THERAGRAN-M) 9 mg iron-400 mcg [...] in sterile water 20 mL IV syringe isopropyl alcohol 0.7 ml/ml medicated pad (8 [...] vaginal bleeding, unspecified] Onset: 4 Chronic Other gastrointestinal disorders (4 sources) History of sleeve gastrectomy; Translations: [Bariatric surgery status] Onset: 2 Episodic Other nutritional; endocrine; and metabolic disorders (1 source) Obesity; Translations: [Obesity, unspecified] Chronic Other nutritional; endocrine; and metabolic disorders (1 source) Body mass index 30+ - obesity; Translations: [Obesity, unspecified] 01-31-2022 Chronic Other screening for suspected conditions (not mental [...] gestation of ] 12-02-2024 Episodic Thyroid disorders (4 sources) Autoimmune thyroiditis; Translations: [Hypothyroidism, unspecified] Onset: 4 07-13-2024 Chronic Unclassified (1 source) Vaginal Bleeding - [...] female genital tract] Onset: 4 Episodic Other female genital disorders (1 source) H/O: Disorder; Translations: [Personal history of other diseases of the female genital tract] 12-18-2023 Episodic Other gastrointestinal disorders (2 sources) Bariatric surgery status; Translations: [Bariatric surgery status] Onset: 2 Episodic Other gastrointestinal disorders (1 source) Diarrhea, unspecified; Translations: [Diarrhea, unspecified] Onset: 4 Episodic Other nutritional; endocrine; and metabolic disorders (1 source) Overweight; Translations: [Overweight] Onset: 4 Episodic Other and delivery including normal (20 sources) Serum test positive; Translations: [Encounter for test, result positive] Onset: 4 05-05-2024 Episodic Residual codes; unclassified (2 sources) Acquired [...] gestation of ] Onset: 4 Episodic Unclassified (3 sources) Onset: 1 04-17-2021 NEGATED: Highlighted row has been ruled out!Unclassified (1 source) No known active problems 01-17-2022 Results Test Name Value Interpretation Reference Range Facility US OB BPP W NON-STRESS on 12-10-2024 [place] [address] Ultrasound Report Signed Patient: PHILLIP AVALOS MR#: [id number] : 1995 Acct:[id number] Age/Sex: 29 / F ADM Date: 12/10/24 Loc: [facility] 250-[address]: Jake Miramontes D.O. Ordering Physician: Jake Miramontes D.O. Date of Service: 12/10/24 Procedure(s): US OB BPP w non-stress Accession Number(s): [id number] cc: Jake Miramontes D.O.; Physician,Non-Staff M.DMicheal [place] [address] Patient Name: PHILLIP AVALOS MRN: [id number] date: 1995 Sex: F Assigned Patient Location: [facility] Current Patient Location: [facility] Accession/Order Number: [id number] Exam Date: 12/10/2024 10:46 Report Date: 12/10/2024 11:25 At the request of: JAKE MIRAMONTES Procedure: US OB BPP w non-stress EXAMINATION: US OB BPP w non-stress HISTORY:Excessive growth COMPARISON: Ultrasound OB growth 10/15/2024 TECHNIQUE: Ultrasound biophysical profile was performed in the radiology department. BREATHING MOVEMENTS: 2 GROSS BODY MOVEMENTS: 2 TONE: 2 QUALITATIVE AMNIOTIC FLUID VOLUME: 2 PRESENTATION: CEPHALIC HEART RATE: 155.17 bpm AMNIOTIC FLUID VOLUME: 11.98 cm GESTATIONAL AGE: 35 weeks 3 days US/US OB BPP w non-stress IMPRESSION: 1. Total biophysical profile score: 8 Electronically authenticated by: MARIBELL ESTEVEZ Date: 12/10/2024 11:25 Dictated By: Maribell sEtevez M.D. Signed By: 12/10/248 DD/ 24 TD/TT: Excellence Leader: [facility] Radiology, Radiologist, MD - 12/10/2024 [place] [address] Ultrasound Report Signed Patient: PHILLIP AVALOS MR#: [id number] : 1995 Acct:[id number] Age/Sex: 29 / F ADM Date: 12/10/24 Loc: [facility] 250-[address]: Jake Miramontes D.O. Ordering Physician: Jake Miramontes D.O. Date of Service: 12/10/24 Procedure(s): US OB BPP w non-stress Accession Number(s): [id number] cc: Jake Miramontes D.O.; Physician,Non-Staff Patti [place] [address] Patient Name: PHILLIP AVALOS MRN: [facility]:[id number] date: 1995 Sex: F Assigned Patient Location: [facility] Current Patient Location: [facility] Accession/Order Number: [id number] Exam Date: 12/10/2024 10:46 Report Date: 12/10/2024 11:25 At the request of: JAKE MIRAMONTES Procedure: US OB BPP w non-stress EXAMINATION: US OB BPP w non-stress HISTORY:Excessive growth COMPARISON: Ultrasound OB growth 10/15/2024 TECHNIQUE: Ultrasound biophysical profile was performed in the radiology department. BREATHING MOVEMENTS: 2 GROSS BODY MOVEMENTS: 2 TONE: 2 QUALITATIVE AMNIOTIC FLUID VOLUME: 2 PRESENTATION: CEPHALIC HEART RATE: 155.17 bpm AMNIOTIC FLUID VOLUME: 11.98 cm GESTATIONAL AGE: 35 weeks 3 days US/US OB BPP w non-stress IMPRESSION: 1. Total biophysical profile score: 8 Electronically authenticated by: MARIBELL ESTEVEZ Date: 12/10/2024 11:25 Dictated By: Maribell Estevez M.D. Signed By: 12/10/24 1128 DD/ 24 TD/TT: Excellence Leader: [facility] Radiology Study observation (narrative) [facility] US OB BPP W NON-STRESS Ordered By: Radiologist Radiology on 12-10-2024 [facility] Work Phone: Urinalysis macro (dipstick) panel (U)on 12-02-2024 Bilirubin, UA Negative Negative - 4(70) +++ mg/dL [facility] Blood, UA Negative Negative - 50 Nathanael/mcL [facility] Clarity, UA Clear [facility] Color, UA Yellow [facility] Glucose, UA Negative Negative - 1999(110) ++++ mg/dL [facility] Interpretation and review of laboratory results Abnormal [facility] Ketones, UA Negative Negative - 160(16) ++++ mg/dL [facility] Leukocytes, UA Trace Negative - 500+++ Annie/mcL [facility] Nitrite, UA Negative Negative - Positive [facility] pH, UA 7 5 - 9 [facility] Protein, UA Trace Negative - 1999(20) ++++ mg/dL [facility] Spec Grav, UA 1.025 1 - 1.03 [facility] Urobilinogen, UA 1.0 0.2 - 12 mg/dL [facility] Urinalysis macro (dipstick) panel (U)on 11-18-2024 Bilirubin, UA Negative Negative - 4(70) +++ mg/dL [facility] Blood, UA Negative Negative - 50 Nathanael/mcL [facility] Clarity, UA Clear [facility] Color, UA Yellow [facility] Glucose, UA Negative Negative - 1999(110) ++++ mg/dL [facility] Interpretation and review of laboratory results Abnormal [facility] Ketones, UA Negative Negative - 160(16) ++++ mg/dL [facility] Leukocytes, UA Trace Negative - 500+++ Annie/mcL [facility] Nitrite, UA Negative Negative - Positive [facility] pH, UA 6.5 5 - 9 [facility] Protein, UA Negative Negative - 1999(20) ++++ mg/dL [facility] Spec Grav, UA 1.025 1 - 1.03 [facility] Urobilinogen, UA 0.2 0.2 - 12 mg/dL [facility] CBC AND AUTO DIFFon 11-11-19 25 ABSOLUTE BASOPHIL 0.0 X10E9/L Normal 0.0-0.2 [facility] Comment on above: Performed By: #### 3 8476-8 #### [facility] ([id number]) [address] [place] [address] #### 2839-9 #### [facility] ([id number]) [address], [address] [place] [address] ABSOLUTE NEUTROPHIL 7.2 X10E9/L High 1.5-6.6 [facility] Comment on above: Performed By: #### 3 8476-8 #### [facility] ([id number]) [address] [place] [address] 23137 #### 2839-9 #### [facility] ([id number]) [address], [address] [place] [address] Basophils/100 WBC (Bld) 0.3 % Normal [facility] Comment on above: Performed By: #### 3 8476-8 #### [facility] ([id number]) [address] [place] [address]407 #### 2839-9 #### [facility] ([id number]) [address], [address] [place] [address] Eosinophils (Bld) [#/Vol] 0.3 10*3/uL Normal 0.0-0.4 [facility] Comment on above: Performed By: #### 3 8476-8 #### [facility] ([id number]) [address] [place] [address] 47809 #### 2839-9 #### [facility] ([id number]) [address], [address] [place] [address] Eosinophils/100 WBC (Bld) 2.9 % Normal [facility] Comment on above: Performed By: #### 3 8476-8 #### [facility] ([id number]) [address] [place] [address] 28559 #### 2839-9 #### [facility] ([id number]) [address], [address] [place] [address] Erythrocyte distribution width (RBC) [Ratio] 12.5 % Normal 11.5-15.0 [facility] Comment on above: Performed By: #### 3 8476-8 #### [facility] ([id number]) [address] [place] [address] #### 2839-9 #### [facility] ([id number]) [address], [address] [place] [address] Hematocrit (Bld) [Volume fraction] 36.8 % Normal 35-47 [facility] Comment on above: Performed By: #### 3 8476-8 #### [facility] ([id number]) [address] [place] [address]17 #### 2839-9 #### [facility] ([id number]) [address], [address] [place] [address] Hemoglobin (Bld) [Mass/Vol] 12.7 g/dL Normal 11.7-15.5 [facility] Comment on above: Performed By: #### 3 8476-8 #### [facility] ([id number]) [address] [place] [address] 9[address]14 #### 2839-9 #### [facility] ([id number]) [address], [address] [place] [address] Lymphocytes (Bld) [#/Vol] 1.9 10*3/uL Normal 1.0-3.5 [facility] Comment on above: Performed By: #### 3 8476-8 #### [facility] ([id number]) [address] [place] [address]2204 #### 2839-9 #### [facility] ([id number]) [address], [address] [place] [address] Lymphocytes/100 WBC (Bld) 18.7 % Normal [facility] Comment on above: Performed By: #### 3 8476-8 #### [facility] ([id number]) [address] [place] [address] 13259 #### 2839-9 #### [facility] ([id number]) [address], [address] [place] [address] MCH (RBC) [Entitic mass] 32.5 pg Normal 27-34 [facility] Comment on above: Performed By: #### 3 8476-8 #### [facility] ([id number]) [address] [place] [address]255 #### 2839-9 #### [facility] ([id number]) [address], [address] [place] [address] MCHC (RBC) [Mass/Vol] 34.5 g/dL Normal 32-[address] [facility] Comment on above: Performed By: #### 3 8476-8 #### [facility] ([id number]) [address] [place] [address] 27826 #### 2839-9 #### [facility] ([id number]) [address], [address] [place] [address] MCV (RBC) [Entitic vol] 94 fL Normal 80-100 [facility] Comment on above: Performed By: #### 3 8476-8 #### [facility] ([id number]) [address] [place] [address] [place] [address] #### 2839-9 #### [facility] ([id number]) [address], [address] [place] [address] Monocytes (Bld) [#/Vol] 0.6 10*3/uL Normal 0-0.9 [facility] Comment on above: Performed By: #### 3 8476-8 #### [facility] ([id number]) [address] [place] [address] 61069 #### 2839-9 #### [facility] ([id number]) [address], [address] [place] [address] Monocytes/100 WBC (Bld) 6.4 % Normal [facility] Comment on above: Performed By: #### 3 8476-8 #### [facility] ([id number]) [address] [place] [address] 47812 #### 2839-9 #### [facility] ([id number]) [address], [address] [place] [address] Neutrophils/100 WBC (Bld) 71.7 % Normal [facility] Comment on above: Performed By: #### 3 8476-8 #### [facility] ([id number]) [address] [place] [address] 19845 #### 2839-9 #### [facility] ([id number]) [address], [address] [place] [address] Platelet mean volume (Bld) [Entitic vol] 7.3 fL Normal 7-12 [facility] Comment on above: Performed By: #### 3 8476-8 #### [facility] ([id number]) [address] [place] [address] 93831 #### 2839-9 #### [facility] ([id number]) [address], [address] [place] [address] Platelets (Bld) [#/Vol] 218 10*3/uL Normal 150-450 [facility] Comment on above: Performed By: #### 3 8476-8 #### [facility] ([id number]) [address] [place] [address] 37817 #### 2839-9 #### [facility] ([id number]) [address], [address] [place] [address] RBC COUNT 3.89 X10E12/L Normal 3.80-5.20 [facility] Comment on above: Performed By: #### 3 8476-8 #### [facility] ([id number]) [address] [place] [address] 82715 #### 2839-9 #### [facility] ([id number]) [address], [address] [place] [address] WBC (Bld) [#/Vol] 10.1 10*3/uL Normal 4.0-11.0 [facility] Comment on above: Performed By: #### 3 8476-8 #### [facility] ([id number]) [address] [place] [address] 61062 #### 2839-9 #### [facility] ([id number]) [address], [address] [place] [address] CBC W Auto Differential pane l (Bld)on 11-11-2024 ABSOLUTE BASOPHIL 0 [facility] Comment on above: PERFORMED AT [facility] [address],[place] [address] Basophils/100 WBC (Bld) 0.3 % [facility] Eosinophils (Bld) [#/Vol] 0.3 10*3/uL [facility] Eosinophils/100 WBC (Bld) 2.9 % [facility] Erythrocyte distribution width (RBC) [Ratio] 12.5 % 11.5 - 15.0 % [facility] Hematocrit (Bld) [Volume fraction] 36.8 % 35 - 47 % [facility] Hemoglobin (Bld) [Mass/Vol] 12.7 g/dL 11.7 - 15.5 g/dL [facility] Interpretation and review of laboratory results Abnormal [facility] Lymphocytes (Bld) [#/Vol] 1.9 10*3/uL [facility] Lymphocytes/100 WBC (Bld) 18.7 % [facility] MCH (RBC) [Entitic mass] 32.5 pg 27 - 34 pg [facility] MCHC (RBC) [Mass/Vol] 34.5 g/dL 32 - 36 g/dL [facility] MCV (RBC) [Entitic vol] 94 fL 80 - 100 fL [facility] Monocytes (Bld) [#/Vol] 0.6 10*3/uL [facility] Monocytes/100 WBC (Bld) 6.4 % [facility] Neutrophils (Bld) [#/Vol] 7.2 10*3/uL High [facility] Neutrophils/100 WBC (Bld) 71.7 % [facility] Platelet mean volume (Bld) [Entitic vol] 7.3 fL 7 - 12 fL [facility] Platelets (Bld) [#/Vol] 218 10*3/uL [facility] RBC (Bld) [#/Vol] 3.89 10*6/uL [facility] WBC corrected for nucl RBC Auto (Bld) [#/Vol] 10.1 [facility] Urinalysis macro (dipstick) panel (U)on 11-04-2024 Bilirubin, UA Negative Negative - 4(70) +++ mg/dL [facility] Blood, UA Negative Negative - 50 Nathanael/mcL [facility] Clarity, UA Clear [facility] Color, UA Yellow [facility] Glucose, UA Negative Negative - 1999(110) ++++ mg/dL [facility] Interpretation and review of laboratory results Abnormal [facility] Ketones, UA Negative Negative - 160(16) ++++ mg/dL [facility] Leukocytes, UA Trace Negative - 500+++ Annie/mcL [facility] Nitrite, UA Negative Negative - Positive [facility] pH, UA 6 5 - 9 [facility] Protein, UA Positive Negative - 1999(20) ++++ mg/dL [facility] Comment on above: trace Spec Grav, UA 1.03 1 - 1.03 [facility] Urobilinogen, UA 0.2 0.2 - 12 mg/dL [facility] Urinalysis macro (dipstick) panel (U)on 10-22-2024 Bilirubin, UA Negative Negative - 4(70) +++ mg/dL [facility] Blood, UA Negative Negative - 50 Nathanael/mcL [facility] Clarity, UA Clear [facility] Color, UA Yellow [facility] Glucose, UA Negative Negative - 1999(110) ++++ mg/dL [facility] Interpretation and review of laboratory results Abnormal [facility] Ketones, UA Negative Negative - 160(16) ++++ mg/dL [facility] Leukocytes, UA Positive Negative - 500+++ Annie/mcL [facility] Comment on above: small Nitrite, UA Negative Negative - Positive [facility] pH, UA 6.5 5 - 9 [facility] Protein, UA Negative Negative - 1999(20) ++++ mg/dL [facility] Spec Grav, UA 1.025 1 - 1.03 [facility] Urobilinogen, UA 1.0 0.2 - 12 mg/dL [facility] Urinalysis macro (dipstick) panel (U)on 09-29-2024 Bilirubin, UA Negative Negative - 4(70) +++ mg/dL [facility] Blood, UA Negative Negative - 50 Nathanael/mcL [facility] Clarity, UA Clear [facility] Color, UA Yellow [facility] Glucose, UA Negative Negative - 1999(110) ++++ mg/dL [facility] Interpretation and review of laboratory results Normal [facility] Ketones, UA Negative Negative - 160(16) ++++ mg/dL [facility] Leukocytes, UA Negative Negative - 500+++ Annie/mcL [facility] Nitrite, UA Negative Negative - Positive [facility] pH, UA 7 5 - 9 [facility] Protein, UA Negative Negative - 1999(20) ++++ mg/dL [facility] Spec Grav, UA 1.025 1 - 1.03 [facility] Urobilinogen, UA 1.0 0.2 - 12 mg/dL [facility] Urinalysis macro (dipstick) panel (U)on 09-01-2024 Bilirubin, UA Negative Negative - 4(70) +++ mg/dL [facility] Blood, UA Negative Negative - 50 Nathanael/mcL [facility] Clarity, UA Clear [facility] Color, UA Yellow [facility] Glucose, UA Negative Negative - 2000(110) ++++ mg/dL [facility] Interpretation and review of laboratory results Abnormal [facility] Ketones, UA Negative Negative - 160(16) ++++ mg/dL [facility] Leukocytes, UA Trace Negative - 500+++ Annie/mcL [facility] Nitrite, UA Negative Negative - Positive [facility] pH, UA 6 5 - 9 [facility] Protein, UA Negative Negative - 2000(20) ++++ mg/dL [facility] Spec Grav, UA 1.03 1 - 1.03 [facility] Urobilinogen, UA 0.2 0.2 - 12 mg/dL [facility] CBC AND AUTO DIFFon 08-26-20 24 ABSOLUTE BASOPHIL 0.0 X10E9/L Normal 0.0-0.2 [facility] Comment on above: Performed By: #### 3 8476-8 #### [facility] ([id number]) [address] [place] [address] 91680 #### 2839-9 #### [facility] ([id number]) [address] [place] [address], [address] [place] [address] ABSOLUTE NEUTROPHIL 5.8 X10E9/L Normal 1.5-6.6 [facility] Comment on above: Performed By: #### 3 8476-8 #### [facility] ([id number]) [address] [place] [address]249 #### 2839-9 #### [facility] ([id number]) [address] [facility], [address] [place] [address] Basophils/100 WBC (Bld) 0.2 % Normal [facility] Comment on above: Performed By: #### 3 8476-8 #### [facility] ([id number]) [address] [place] [address] 46220 #### 2839-9 #### [facility] ([id number]) [address], [address] [place] [address] Eosinophils (Bld) [#/Vol] 0.2 10*3/uL Normal 0.0-0.4 [facility] Comment on above: Performed By: #### 3 8476-8 #### [facility] ([id number]) [address] [place] [address] 52212 #### 2839-9 #### [facility] ([id number]) [address], [address] [place] [address] Eosinophils/100 WBC (Bld) 2.9 % Normal [facility] Comment on above: Performed By: #### 3 8476-8 #### [facility] ([id number]) [address] [place] [address] 97670 #### 2839-9 #### [facility] ([id number]) [address] [place] [address] Erythrocyte distribution width (RBC) [Ratio] 13.0 % Normal 11.5-15.0 [facility] Comment on above: Performed By: #### 3 8476-8 #### [facility] ([id number]) [address] [place] [address] 52395 #### 2839-9 #### [facility] ([id number]) [address], [address] [place] [address] Hematocrit (Bld) [Volume fraction] 31.5 % Low 35-47 [facility] Comment on above: Performed By: #### 3 8476-8 #### [facility] ([id number]) [address] [place] [address] 26555 #### 2839-9 #### [facility] ([id number]) [address], [address] [place] [address] Hemoglobin (Bld) [Mass/Vol] 10.8 g/dL Low 11.7-15.5 [facility] Comment on above: Performed By: #### 3 8476-8 #### [facility] ([id number]) [address] [place] [address] 13157 #### 2839-9 #### [facility] ([id number]) [address], [address] [place] [address] Lymphocytes (Bld) [#/Vol] 1.3 10*3/uL Normal 1.0-3.5 [facility] Comment on above: Performed By: #### 3 8476-8 #### [facility] ([id number]) [address] [place] [address] 99556 #### 2839-9 #### [facility] ([id number]) [address], [address] [place] [address] Lymphocytes/100 WBC (Bld) 16.5 % Normal [facility] Comment on above: Performed By: #### 3 8476-8 #### [facility] ([id number]) [address] [place] [address] 88253 #### 2839-9 #### [facility] ([id number]) [address], [address] [place] [address] MCH (RBC) [Entitic mass] 32.6 pg Normal 27-34 [facility] Comment on above: Performed By: #### 3 8476-8 #### [facility] ([id number]) [address] [place] [address] 33904 #### 2839-9 #### [facility] ([id number]) [address], [address] [place] [address] MCHC (RBC) [Mass/Vol] 34.4 g/dL Normal 32-[address] [facility] Comment on above: Performed By: #### 3 8476-8 #### [facility] ([id number]) [address] [place] [address] 74003 #### 2839-9 #### [facility] ([id number]) [address] [place] [address] MCV (RBC) [Entitic vol] 95 fL Normal 80-100 [facility] Comment on above: Performed By: #### 3 8476-8 #### [facility] ([id number]) [address] [place] [address] 47570 #### 2839-9 #### [facility] ([id number]) [address], [address] [place] [address] Monocytes (Bld) [#/Vol] 0.6 10*3/uL Normal 0-0.9 [facility] Comment on above: Performed By: #### 3 8476-8 #### [facility] ([id number]) [address] [place] [address] 24651 #### 2839-9 #### [facility] ([id number]) [address], [address] [place] [address] Monocytes/100 WBC (Bld) 8.0 % Normal [facility] Comment on above: Performed By: #### 3 8476-8 #### [facility] ([id number]) [address] [place] [address] 81401 #### 2839-9 #### [facility] ([id number]) [address], [address] [place] [address] Neutrophils/100 WBC (Bld) 72.4 % Normal [facility] Comment on above: Performed By: #### 3 8476-8 #### [facility] ([id number]) [address] [place] [address] [place] [address] #### 2839-9 #### [facility] ([id number]) [address], [address] [place] [address] Platelet mean volume (Bld) [Entitic vol] 6.7 fL Low 7-12 [facility] Comment on above: Performed By: #### 3 8476-8 #### [facility] ([id number]) [address] [place] [address] 71802 #### 2839-9 #### [facility] ([id number]) [address], [address] [place] [address] Platelets (Bld) [#/Vol] 188 10*3/uL Normal 150-450 [facility] Comment on above: Performed By: #### 3 8476-8 #### [facility] ([id number]) [address] [place] [address] 12433 #### 2839-9 #### [facility] ([id number]) [address], [address] [place] [address] RBC COUNT 3.33 X10E12/L Low 3.80-5.20 [facility] Comment on above: Performed By: #### 3 8476-8 #### [facility] ([id number]) [address] [place] [address] 22841 #### 2839-9 #### [facility] ([id number]) [address], [address] [place] [address] WBC (Bld) [#/Vol] 8.0 10*3/uL Normal 4.0-11.0 [facility] Comment on above: Performed By: #### 3 8476-8 #### [facility] ([id number]) [address] [place] [address] 11602 #### 2839-9 #### [facility] ([id number]) [address], [address] [place] [address] COMPREHENSIVE METABOLIC PANE Augustin 08-26-2024 Albumin [Mass/Vol] 2.9 g/dL Low 3.2-5.3 [facility] Comment on above: Performed By: #### 3 8476-8 #### [facility] ([id number]) [address] [place] [address] 34241 #### 2839-9 #### [facility] ([id number]) [address], [address] [place] [address] ALP [Catalytic activity/Vol] 34 U/L Low 39-130 [facility] Comment on above: Performed By: #### 3 8476-8 #### [facility] ([id number]) [address] [place] [address] 06925 #### 2839-9 #### [facility] ([id number]) [address], [address] [place] [address] ALT [Catalytic activity/Vol] 45 U/L High 0-31 [facility] Comment on above: Performed By: #### 3 8476-8 #### [facility] ([id number]) [address] [place] [address] 20303 #### 2839-9 #### [facility] ([id number]) [address], [address] [place] [address] Anion gap [Moles/Vol] 5 mmol/L Normal 5-[address] [facility] Comment on above: Performed By: #### 3 8476-8 #### [facility] ([id number]) [address] [place] [address] 77470 #### 2839-9 #### [facility] ([id number]) [address], [address] [place] [address] AST [Catalytic activity/Vol] 44 U/L High 0-41 [facility] Comment on above: Performed By: #### 3 8476-8 #### [facility] ([id number]) [address] [place] [address] 89514 #### 2839-9 #### [facility] ([id number]) [address], [address] [place] [address] Bilirubin [Mass/Vol] 0.4 mg/dL Normal 0.3-1.2 [facility] Comment on above: Performed By: #### 3 8476-8 #### [facility] ([id number]) [address] [place] [address] 51164 #### 2839-9 #### [facility] ([id number]) [address], [address] [place] [address] Calcium [Mass/Vol] 8.4 mg/dL Low 8.5-10.5 [facility] Comment on above: Performed By: #### 3 8476-8 #### [facility] ([id number]) [address] [place] [address] 75098 #### 2839-9 #### [facility] ([id number]) [address], [address] [place] [address] Chloride [Moles/Vol] 105 mmol/L Normal 98-109 [facility] Comment on above: Performed By: #### 3 8476-8 #### [facility] ([id number]) [address] [place] [address] 42172 #### 2839-9 #### [facility] ([id number]) [address], [address] [place] [address] CO2 [Moles/Vol] 23 mmol/L Normal 22-32 [facility] Comment on above: Performed By: #### 3 8476-8 #### [facility] ([id number]) [address] [place] [address] 58934 #### 2839-9 #### [facility] ([id number]) [address] [facility], [address] [place] [address] Creatinine [Mass/Vol] 0.68 mg/dL Normal 0.40-1.[address] [facility] Comment on above: Result Comment: METH OD TRACEABLE TO IDMS STANDARD Performed By: #### 3 8476-8 #### [facility] ([id number]) [address] [place] [address] 58398 #### 2839-9 #### [facility] ([id number]) [address] [facility], [address] [place] [address] eGFR (CKD-EPI) NON-RACE DEPENDENT >90 Normal >59 [facility] Comment on above: Result Comment: Reported eGFR is based on the CKD-EPI 2020 equation that does not use a race coefficient. Performed By: #### 3 8476-8 #### [facility] ([id number]) [address] [place] [address] 33832 #### 2839-9 #### [facility] ([id number]) [address] [facility], [address] [place] [address] Glucose [Mass/Vol] 80 mg/dL Normal 65-99 [facility] Comment on above: Performed By: #### 3 8476-8 #### [facility] ([id number]) [address] [place] [address] 02546 #### 2839-9 #### [facility] ([id number]) [address] [facility], [address] [place] [address] Potassium [Moles/Vol] 3.9 mmol/L Normal 3.5-5.[address] [facility] Comment on above: Performed By: #### 3 8476-8 #### [facility] ([id number]) [address] [place] [address] 49795 #### 2839-9 #### [facility] ([id number]) [address], [address] [place] [address] Protein [Mass/Vol] 5.8 g/dL Low 6.0-8.0 [facility] Comment on above: Performed By: #### 3 8476-8 #### [facility] ([id number]) [address] [place] [address] 50519 #### 2839-9 #### [facility] ([id number]) [address], [address] [place] [address] Sodium [Moles/Vol] 133 mmol/L Low 134-146 [facility] Comment on above: Performed By: #### 3 8476-8 #### [facility] ([id number]) [address] [place] [address] 66523 #### 2839-9 #### [facility] ([id number]) [address], [address] [place] [address] Urea nitrogen [Mass/Vol] 15 mg/dL Normal 5-23 [facility] Comment on above: Performed By: #### 3 8476-8 #### [facility] ([id number]) [address] [place] [address] 26051 #### 2839-9 #### [facility] ([id number]) [address], [address] [place] [address] LIPASEon 08-26-2024 Lipase [Catalytic activity/Vol] 36 U/L Normal 17-40 [facility] Comment on above: Performed By: #### 3 8476-8 #### [facility] ([id number]) [address] [place] [address] 98631 #### 2839-9 #### [facility] ([id number]) [address] [facility], [address] [place] [address] MAGNESIUMon 08-26-2024 Magnesium [Mass/Vol] 1.8 mg/dL Normal 1.8-2.6 [facility] Comment on above: Performed By: #### 3 8476-8 #### [facility] ([id number]) [address] [place] [address] 16897 #### 2839-9 #### [facility] ([id number]) [address] [facility], [address] [place] [address] Troponin I.cardiac High sens itivity method [Mass/Vol]on 08-26-2024 TROPONIN I, HIGH SENSITIVITY <2 Normal <16 [facility] Comment on above: Performed By: #### 3 8476-8 #### [facility] ([id number]) [address] [place] [address] 15039 #### 2839-9 #### [facility] ([id number]) [facility] [facility], [address] [place] [address] THYROID PROFILEon 08-15-2024 Free T4 [Mass/Vol] 0.89 ng/dL Normal 0.61-1.60 [facility] Comment on above: Performed By: #### 3 8476-8 #### [facility] ([id number]) [address] [place] [address] 95289 #### 2839-9 #### [facility] ([id number]) [address] [facility], [address] [place] [address] TSH 3.03 uIU/mL Normal 0.49-4.67 [facility] Comment on above: Performed By: #### 3 8476-8 #### [facility] ([id number]) [address] [place] [address] 76712 #### 2839-9 #### [facility] ([id number]) [address] [facility], [address] [place] [address] URETHRITIS/DISCHARGE PLUS VA GINITIS (HTRX)on 08-04-2024 ATOPOBIUM VAGINAE 0.000 [facility] ATOPOBIUM VAGINAE Not detected [facility] BVAB 2,3 (BACTERIAL VAGINOSIS ASSOCIATED BACTERIA 2, 3); MOBILUNCUS SPP 0.000 [facility] BVAB 2,3 (BACTERIAL VAGINOSIS ASSOCIATED BACTERIA 2, 3); MOBILUNCUS SPP Not detected [facility] RAZIA ALBICANS, PARAPSILOSIS, TROPICALIS 0.000 [facility] RAZIA ALBICANS, PARAPSILOSIS, TROPICALIS Not detected [facility] RAZIA GLABRATA 0.000 [facility] RAZIA GLABRATA Not detected [facility] RAZIA KRUSEI 0.000 [facility] RAZIA KRUSEI Not detected [facility] CHLAMYDIA TRACHOMATIS 0.000 [facility] CHLAMYDIA TRACHOMATIS Not detected N [facility] GARDNERELLA VAGINALIS 0.000 [facility] GARDNERELLA VAGINALIS Not detected N [facility] MEGASPHAERA (TYPES 1, 2) 0.000 [facility] MEGASPHAERA (TYPES 1, 2) Not detected [facility] MYCOPLASMA GENITALIUM 0.000 [facility] MYCOPLASMA GENITALIUM Not detected N [facility] NEISSERIA GONORRHOEAE 0.000 [facility] NEISSERIA GONORRHOEAE Not detected N [facility] TRICHOMONAS VAGINALIS 0.000 [facility] TRICHOMONAS VAGINALIS Not detected N [facility] Urinalysis macro (dipstick) panel (U)on 08-03-2024 Bilirubin, UA Negative Negative - 4(70) +++ mg/dL [facility] Blood, UA Negative Negative - 50 Nathanael/mcL [facility] Clarity, UA Clear [facility] Color, UA Yellow [facility] Glucose, UA Negative Negative - 1999(110) ++++ mg/dL [facility] Interpretation and review of laboratory results Normal [facility] Ketones, UA Negative Negative - 160(16) ++++ mg/dL [facility] Leukocytes, UA Negative Negative - 500+++ Annie/mcL [facility] Nitrite, UA Negative Negative - Positive [facility] pH, UA 7.0 5 - 9 [facility] Protein, UA Negative Negative - 1999(20) ++++ mg/dL [facility] Spec Grav, UA 1.020 1 - 1.03 [facility] Urobilinogen, UA 1.0 0.2 - 12 mg/dL [facility] THYROID PROFILEon 07-18-2024 Free T4 [Mass/Vol] 0.80 ng/dL Normal 0.61-1.60 [facility] Comment on above: Performed By: #### 3 8476-8 #### [facility] ([id number]) [address] [place] [address] 58246 #### 2839-9 #### [facility] ([id number]) [address] [facility], [address] [place] [address] TSH 3.22 uIU/mL Normal 0.49-4.67 [facility] Comment on above: Performed By: #### 3 8476-8 #### [facility] ([id number]) [address] [place] [address] 44308 #### 2839-9 #### [facility] ([id number]) [address] [facility], [address] [place] [address] TSHon 07-18-2024 Free T4 [Mass/Vol] 0.80 ng/dL 0.61 - 1. 60 ng/dL [facility] Comment on above: PERFORMED AT [facility] [address],[place] [address] TSH Qn 3.22 m[IU]/L [facility] Urinalysis macro (dipstick) panel (U)on 07-07-2024 Bilirubin, UA Negative Negative - 4(70) +++ mg/dL [facility] Blood, UA Negative Negative - 50 Nathanael/mcL [facility] Clarity, UA Clear [facility] Color, UA Yellow [facility] Glucose, UA Negative Negative - 2000(110) ++++ mg/dL [facility] Interpretation and review of laboratory results Normal [facility] Ketones, UA Negative Negative - 160(16) ++++ mg/dL [facility] Leukocytes, UA Trace Negative - 500+++ Annie/mcL [facility] Nitrite, UA Negative Negative - Positive [facility] pH, UA 7.0 5 - 9 [facility] Protein, UA Negative Negative - 1999(20) ++++ mg/dL [facility] Spec Grav, UA 1.025 1 - 1.03 [facility] Urobilinogen, UA 0.2 0.2 - 12 mg/dL [facility] TSH ([facility])on 06-20-2024 TSH Qn 2.32 m[IU]/L [facility] Comment on above: PERFORMED AT [address], [place] [address] [facility] TSH Qnon 06-20-2024 TSH 2.32 uIU/mL Normal 0.49-4.67 [facility] Comment on above: Performed By: #### 3 8476-8 #### [facility] ([id number]) [address] [place] [address] 98978 #### 2839-9 #### [facility] ([id number]) [address] [place] [address], [address] [address] CBC AND AUTO DIFFon 06-06-20 ABSOLUTE BASOPHIL 0.0 X10E9/L Normal 0.0-0.2 [facility] Comment on above: Performed By: #### 3 8476-8 #### [facility] ([id number]) [address] [place] [address] 86972 #### 2839-9 #### [facility] ([id number]) [facility] [facility] [place] [address] ABSOLUTE NEUTROPHIL 4.8 X10E9/L Normal 1.5-6.6 [facility] Comment on above: Performed By: #### 3 8476-8 #### [facility] ([id number]) [address] [place] [address] 97985 #### 2839-9 #### [facility] ([id number]) [address] [facility] [place] [address] Basophils/100 WBC (Bld) 0.3 % Normal [facility] Comment on above: Performed By: #### 3 8476-8 #### [facility] ([id number]) [address] [place] [address] 77731 #### 2839-9 #### [facility] ([id number]) [address], [address] [place] [address] Eosinophils (Bld) [#/Vol] 0.4 10*3/uL Normal 0.0-0.4 [facility] Comment on above: Performed By: #### 3 8476-8 #### [facility] ([id number]) [address] [place] [address] 54634 #### 2839-9 #### [facility] ([id number]) [address], [address] [place] [address] Eosinophils/100 WBC (Bld) 5.5 % Normal [facility] Comment on above: Performed By: #### 3 8476-8 #### [facility] ([id number]) [address] [place] [address] 88711 #### 2839-9 #### [facility] ([id number]) [address] [place] [address] Erythrocyte distribution width (RBC) [Ratio] 13.1 % Normal 11.5-15.0 [facility] Comment on above: Performed By: #### 3 8476-8 #### [facility] ([id number]) [address] [place] [address] 11470 #### 2839-9 #### [facility] ([id number]) [address], [address] [place] [address] Hematocrit (Bld) [Volume fraction] 32.4 % Low 35-47 [facility] Comment on above: Performed By: #### 3 8476-8 #### [facility] ([id number]) [address] [place] [address] 84087 #### 2839-9 #### [facility] ([id number]) [address] [facility], [address] [place] [address] Hemoglobin (Bld) [Mass/Vol] 11.2 g/dL Low 11.7-15.5 [facility] Comment on above: Performed By: #### 3 8476-8 #### [facility] ([id number]) [address] [place] [address] 82229 #### 2839-9 #### [facility] ([id number]) [address] [facility], [address] [place] [address] Lymphocytes (Bld) [#/Vol] 1.7 10*3/uL Normal 1.0-3.5 [facility] Comment on above: Performed By: #### 3 8476-8 #### [facility] ([id number]) [address] [place] [address] 75379 #### 2839-9 #### [facility] ([id number]) [address] [facility], [address] [place] [address] Lymphocytes/100 WBC (Bld) 21.9 % Normal [facility] Comment on above: Performed By: #### 3 8476-8 #### [facility] ([id number]) [address] [place] [address] 49624 #### 2839-9 #### [facility] ([id number]) [address] [facility], [address] [place] [address] MCH (RBC) [Entitic mass] 31.7 pg Normal 27-34 [facility] Comment on above: Performed By: #### 3 8476-8 #### [facility] ([id number]) [address] [place] [address] 53570 #### 2839-9 #### [facility] ([id number]) [address] [place] [address] MCHC (RBC) [Mass/Vol] 34.5 g/dL Normal 32-[address] [facility] Comment on above: Performed By: #### 3 8476-8 #### [facility] ([id number]) [address] [place] [address] 37995 #### 2839-9 #### [facility] ([id number]) [address] [place] [address] MCV (RBC) [Entitic vol] 92 fL Normal 80-100 [facility] Comment on above: Performed By: #### 3 8476-8 #### [facility] ([id number]) [address] [place] [address] #### 2839-9 #### [facility] ([id number]) [address], [address] [place] [address] Monocytes (Bld) [#/Vol] 0.8 10*3/uL Normal 0-0.9 [facility] Comment on above: Performed By: #### 3 8476-8 #### [facility] ([id number]) [address] [place] [address] #### 2839-9 #### [facility] ([id number]) [address], [address] [place] [address] Monocytes/100 WBC (Bld) 10.4 % Normal [facility] Comment on above: Performed By: #### 3 8476-8 #### [facility] ([id number]) [address] [place] [address] #### 2839-9 #### [facility] ([id number]) [address], [address] [place] [address] Neutrophils/100 WBC (Bld) 61.9 % Normal [facility] Comment on above: Performed By: #### 3 8476-8 #### [facility] ([id number]) [address] [place] [address] 24091 #### 2839-9 #### [facility] ([id number]) [address], [address] [place] [address] Platelet mean volume (Bld) [Entitic vol] 6.9 fL Low 7-12 [facility] Comment on above: Performed By: #### 3 8476-8 #### [facility] ([id number]) [address] [place] [address] #### 2839-9 #### [facility] ([id number]) [address], [address] [place] [address] Platelets (Bld) [#/Vol] 172 10*3/uL Normal 150-450 [facility] Comment on above: Performed By: #### 3 8476-8 #### [facility] ([id number]) [address] [place] [address] #### 2839-9 #### [facility] ([id number]) [address], [address] [place] [address] RBC COUNT 3.54 X10E12/L Low 3.80-5.20 [facility] Comment on above: Performed By: #### 3 8476-8 #### [facility] ([id number]) [address] [place] [address] [address] #### 2839-9 #### [facility] ([id number]) [address], [address] [place] [address] WBC (Bld) [#/Vol] 7.7 10*3/uL Normal 4.0-11.0 [facility] Comment on above: Performed By: #### 3 8476-8 #### [facility] ([id number]) [address] [place] [address] 20117 #### 2839-9 #### [facility] ([id number]) [address], [address] [place] [address] COMPREHENSIVE METABOLIC PANE Augustin 06-06-2024 Albumin [Mass/Vol] 3.2 g/dL Normal 3.2-5.3 [facility] Comment on above: Performed By: #### 3 8476-8 #### [facility] ([id number]) [address] [place] [address] 44046 #### 2839-9 #### [facility] ([id number]) [address], [address] [place] [address] ALP [Catalytic activity/Vol] 38 U/L Low 39-130 [facility] Comment on above: Performed By: #### 3 8476-8 #### [facility] ([id number]) [address] [place] [address]39[address] #### 2839-9 #### [facility] ([id number]) [address], [address] [place] [address] ALT [Catalytic activity/Vol] 54 U/L High 0-31 [facility] Comment on above: Performed By: #### 3 8476-8 #### [facility] ([id number]) [address] [place] [address] 88812 #### 2839-9 #### [facility] ([id number]) [address], [address] [place] [address] Anion gap [Moles/Vol] 1 mmol/L Low 5-[address] [facility] Comment on above: Performed By: #### 3 8476-8 #### [facility] ([id number]) [address] [place] [address] 55468 #### 2839-9 #### [facility] ([id number]) [address], [address] [place] [address] AST [Catalytic activity/Vol] 35 U/L Normal 0-41 [facility] Comment on above: Performed By: #### 3 8476-8 #### [facility] ([id number]) [address] [place] [address] 14705 #### 2839-9 #### [facility] ([id number]) [address] [facility], [address] [place] [address] Bilirubin [Mass/Vol] 0.4 mg/dL Normal 0.3-1.2 [facility] Comment on above: Performed By: #### 3 8476-8 #### [facility] ([id number]) [address] [place] [address] 27108 #### 2839-9 #### [facility] ([id number]) [address] [facility], [address] [place] [address] Calcium [Mass/Vol] 8.3 mg/dL Low 8.5-10.5 [facility] Comment on above: Performed By: #### 3 8476-8 #### [facility] ([id number]) [address] [place] [address] 21064 #### 2839-9 #### [facility] ([id number]) [address], [address] [place] [address] Chloride [Moles/Vol] 103 mmol/L Normal 98-109 [facility] Comment on above: Performed By: #### 3 8476-8 #### [facility] ([id number]) [address] [place] [address] 31383 #### 2839-9 #### [facility] ([id number]) [address], [address] [place] [address] CO2 [Moles/Vol] 26 mmol/L Normal 22-32 [facility] Comment on above: Performed By: #### 3 8476-8 #### [facility] ([id number]) [address] [place] [address] 70223 #### 2839-9 #### [facility] ([id number]) [address] [facility], [address] [place] [address] Creatinine [Mass/Vol] 0.64 mg/dL Normal 0.40-1.[address] [facility] Comment on above: Result Comment: METH OD TRACEABLE TO IDMS STANDARD Performed By: #### 3 8476-8 #### [facility] ([id number]) [address] [place] [address] 40241 #### 2839-9 #### [facility] ([id number]) [address] [facility], [address] [place] [address] eGFR (CKD-EPI) NON-RACE DEPENDENT >90 Normal >59 [facility] Comment on above: Result Comment: Reported eGFR is based on the CKD-EPI 2021 equation that does not use a race coefficient. Performed By: #### 3 8476-8 #### [facility] ([id number]) [address] [place] [address] 47155 #### 2839-9 #### [facility] ([id number]) [address] [facility], [address] [place] [address] Glucose [Mass/Vol] 79 mg/dL Normal 65-99 [facility] Comment on above: Performed By: #### 3 8476-8 #### [facility] ([id number]) [address] [place] [address] 52520 #### 2839-9 #### [facility] ([id number]) [address], [address] [place] [address] Potassium [Moles/Vol] 3.7 mmol/L Normal 3.5-5.[address] [facility] Comment on above: Performed By: #### 3 8476-8 #### [facility] ([id number]) [address] [place] [address] 23956 #### 2839-9 #### [facility] ([id number]) [address], [address] [place] [address] Protein [Mass/Vol] 6.1 g/dL Normal 6.0-8.0 [facility] Comment on above: Performed By: #### 3 8476-8 #### [facility] ([id number]) [address] [place] [address] 98767 #### 2839-9 #### [facility] ([id number]) [address], [address] [place] [address] Sodium [Moles/Vol] 130 mmol/L Low 134-146 [facility] Comment on above: Performed By: #### 3 8476-8 #### [facility] ([id number]) [address] [place] [address] 94594 #### 2839-9 #### [facility] ([id number]) [address], [address] [place] [address] Urea nitrogen [Mass/Vol] 15 mg/dL Normal 5-23 [facility] Comment on above: Performed By: #### 3 8476-8 #### [facility] ([id number]) [address] [place] [address] 57855 #### 2839-9 #### [facility] ([id number]) [address], [address] [place] [address] HCG.beta subunit IA 3rd IS Q non 06-06-2024 HCG.beta subunit Qn 676148 m[IU]/mL Normal [facility] Comment on above: Result Comment: NEW [...] neoplasms. Performed By: #### 3 8476-8 #### [facility] ([id number]) [address] [place] [address] #### 2839-9 #### [facility] ([id number]) [address], [address] [place] [address] URN MACROSCOPIC NURon 2023 BILIRUBIN CHLOÉ Negative Normal NEG [facility] Comment on above: Performed By: #### 3 8476-8 #### [facility] ([id number]) [address] [place] [address] 12209 #### 2839-9 #### [facility] ([id number]) [address], [address] [place] [address] BLOOD/HGB CHLOÉ Trace Abnormal NEG [facility] Comment on above: Performed By: #### 3 8476-8 #### [facility] ([id number]) [address] [place] [address] 72317 #### 2839-9 #### [facility] ([id number]) [address], [address] [place] [address] GLUCOSE CHLOÉ Negative Normal NEG [facility] Comment on above: Performed By: #### 3 8476-8 #### [facility] ([id number]) [address] [place] [address] 08498 #### 2839-9 #### [facility] ([id number]) [address], [address] [place] [address] KETONES CHLOÉ Negative Normal NEG [facility] Comment on above: Performed By: #### 3 8476-8 #### [facility] ([id number]) [address] [place] [address] 73251 #### 2839-9 #### [facility] ([id number]) [address], [address] [place] [address] LEUKOCYTE ESTERASE CHLOÉ Negative Normal NEG [facility] Comment on above: Performed By: #### 3 8476-8 #### [facility] ([id number]) [address] [place] [address] 22623 #### 2839-9 #### [facility] ([id number]) [address], [address] [place] [address] NITRITE CHLOÉ Negative Normal NEG [facility] Comment on above: Performed By: #### 3 8476-8 #### [facility] ([id number]) [address] [place] [address] 93285 #### 2839-9 #### [facility] ([id number]) [address], [address] [place] [address] PH CHLOÉ 5.0 Normal 5.0-8.5 [facility] Comment on above: Performed By: #### 3 8476-8 #### [facility] ([id number]) [address] [place] [address] 69274 #### 2839-9 #### [facility] ([id number]) [address], [address] [place] [address] PROTEIN CHLOÉ Negative Normal NEG [facility] Comment on above: Performed By: #### 3 8476-8 #### [facility] ([id number]) [address] [place] [address] 02261 #### 2839-9 #### [facility] ([id number]) [address], [address] [place] [address] SPECIFIC GRAVITY CHLOÉ >=1.030 Normal 1.003-1.035 [facility] Comment on above: Performed By: #### 3 8476-8 #### [facility] ([id number]) [address] [place] [address] 72657 #### 2839-9 #### [facility] ([id number]) [address], [address] [place] [address] UROBILINOGEN CHLOÉ 0.2 eu/dL Normal <1.1 [facility] Comment on above: Performed By: #### 3 8476-8 #### [facility] ([id number]) [address] [place] [address] 80658 #### 2839-9 #### [facility] ([id number]) [address], [address] [place] [address] HCG ( test) Ql (U)o n 05-27-2024 Beta HCG ( test) Ql (U) Positive Abnormal NEG [facility] Comment on above: Performed By: #### 3 8476-8 #### [facility] ([id number]) [address] [place] [address] 88479 #### 2839-9 #### [facility] ([id number]) [address], [address] [place] [address] URN MACROSCOPIC NURon 2023 BILIRUBIN CHLOÉ Negative Normal NEG [facility] Comment on above: Performed By: #### 3 5365-6, CMP, 3015-3, #### [facility] ([id number]) [address], [address] [place] [address] BLOOD/HGB CHLOÉ Small Abnormal NEG [facility] Comment on above: Performed By: #### 3 5365-6, CMP, 3015-3, #### [facility] ([id number]) [address], [address] [place] [address] GLUCOSE CHLOÉ Negative Normal NEG [facility] Comment on above: Performed By: #### 3 5365-6, CMP, 3015-3, #### [facility] ([id number]) [address], [address] [place] [address] KETONES CHLOÉ Negative Normal NEG [facility] Comment on above: Performed By: #### 3 5365-6, CMP, 3015-3, #### [facility] ([id number]) [address], [address] [place] [address] LEUKOCYTE ESTERASE CHLOÉ Negative Normal NEG [facility] Comment on above: Performed By: #### 3 5365-6, CMP, 3015-3, #### [facility] ([id number]) [address], [address] [place] [address] NITRITE CHLOÉ Negative Normal NEG [facility] Comment on above: Performed By: #### 3 5365-6, CMP, 3015-3, #### [facility] ([id number]) [address], [address] [place] [address] PH CHLOÉ 5.5 Normal 5.0-8.5 [facility] Comment on above: Performed By: #### 3 5365-6, CMP, 3016-3, 89081-0 #### [facility] ([id number]) [address], [address] [place] [address] PROTEIN CHLOÉ Negative Normal NEG [facility] Comment on above: Performed By: #### 3 5365-6, [facility], 3016-3, 75450-7 #### [facility] ([id number]) [address], [address] [place] [address] SPECIFIC GRAVITY CHLOÉ >=1.030 Normal 1.003-1.[address] [facility] Comment on above: Performed By: #### 3 5365-6, [facility], [facility]6-3, 32355-4 #### [facility] ([id number]) [address], [address] [place] [address] UROBILINOGEN CHLOÉ 1.0 eu/dL Normal <1.1 [facility] Comment on above: Performed By: #### 3 5365-6, [facility], [facility]-3, 43498-8 #### [facility] ([id number]) [address], [address] [place] [address] HCG.beta subunit IA 3rd IS Q non 05-14-2024 [place] [address] m[IU]/mL Normal P [facility] Comment on above: Result Comment: NEW [...] nontrophoblastic neoplasms. Performed By: #### 3 5365-6, [facility], 3016-3, 03452-3 #### [facility] ([id number]) [address] [facility], [address] [place] [address] HCG.beta subunit IA 3rd IS Q non 05-11-2024 [place] [address] m[IU]/mL Normal P [facility] Comment on above: Result Comment: NEW [...] nontrophoblastic neoplasms. Performed By: #### 3 5365-6, [facility], 3016-3, 14331-7 #### [facility] ([id number]) [address] [facility], [address] [place] [address] TSH Qnon 05-11-2024 TSH 1.06 uIU/mL Normal 0.49-4.67 [facility] Comment on above: Performed By: #### 3 5365-6, [facility], 3016-3, 83691-7 #### [facility] ([id number]) [address] [facility], [address] [place] [address] HCG.beta subunit IA 3rd IS Q non 05-08-2024 HCG.beta subunit Qn 6446 m[IU]/mL Normal [facility] Comment on above: Result Comment: NEW REFERENCE [...] nontrophoblastic neoplasms. Performed By: #### 3 5365-6, [facility], 3016-3, 91539-6 #### [facility] ([id number]) [address] [place] [address] [address] [place] [address] HCG.beta subunit IA 3rd IS Q non 05-06-2024 HCG.beta subunit Qn 3140 m[IU]/mL Normal [facility] Comment on above: Result Comment: NEW REFERENCE [...] Performed By: #### 3 5365-6, CMP, 3016-3, 79458-7 #### [facility] ([id number]) [address] [place] [address], [address] [place] [address] HCG.beta subunit IA 3rd IS Q non 05-01-2024 HCG.beta subunit Qn 560 m[IU]/mL Normal [facility] Comment on above: Result Comment: NEW [...] nontrophoblastic neoplasms. Performed By: #### 3 5365-6, [facility], 3016-3, 09693-6 #### [facility] ([id number]) [address] [place] [address], [address] [place] [address] HCG.beta subunit IA 3rd IS Q non 04-28-2024 HCG.beta subunit Qn 159 m[IU]/mL Normal [facility] Comment on above: Result Comment: NEW [...] nontrophoblastic neoplasms. Performed By: #### 3 5365-6, [facility], 3016-3, 44235-0 #### [facility] ([id number]) [address], [address] [place] [address] FREE T3on 02-14-2024 Free T3 [Mass/Vol] 3.94 pg/mL High 2.50-3.90 [facility] Comment on above: Performed By: #### 3 5365-6, [facility], [facility]6-3, 95120-2 #### [facility] ([id number]) [address], [address] [place] [address] THYROID PROFILEon 02-14-2024 Free T4 [Mass/Vol] 0.91 ng/dL Normal 0.61-1.60 [facility] Comment on above: Performed By: #### 3 5365-6, [facility], [facility]3, 75170-7 #### [facility] ([id number]) [address], [address] [place] [address] TSH 0.52 uIU/mL Normal 0.49-4.67 [facility] Comment on above: Performed By: #### 3 5365-6, [facility], [facility]-3, 09139-8 #### [facility] ([id number]) [address], [address] [place] [address] THYROPEROXIDASE ABon 024 TPO Ab Qn 403 [IU]/mL High <10 [facility] Comment on above: Performed By: #### 3 5365-6, [facility], [facility]6-3, 30430-9 #### [facility] ([id number]) [address], [address] [place] [address] Thyroid stimulating immunogl obulins Qn (S)on 02-14-2024 TSI See Below Normal [facility] Comment on above: Result Comment: NOTE [...] Clinical correlation is required. Test Performed By: [place] [address] Extracting Machine Operator: Eloy Dangelo III, M.D. CLIA #[id number] Performed By: #### 3 5365-6, CMP, 3016-3, 19481-5 #### [facility] ([id number]) [address] [facility], [address] [place] [address] ACUTE HEPATITIS PANELon 12-27 ANTI HCV W/PCR REFLX Non-Reactive Normal NRCT [facility] Comment on above: Result Comment: If recent infection suspected, recommend repeat testing (>2 months). Epmtmc-sh-hxhrkc ratio is <0.80. Performed By: #### 3 5365-6, CMP, 3016-3, 99679-7 #### [facility] ([id number]) [address] [facility], [address] [place] [address] HEPATITIS A IGM Non-Reactive Normal NRCT [facility] Comment on above: Performed By: #### 3 5365-6, CMP, 3016-3, 28420-1 #### [facility] ([id number]) [address] [facility], [address] [place] [address] HEPATITIS B CORE IGM Negative Normal NEG [facility] Comment on above: Performed By: #### 3 5365-6, CMP, 3016-3, 61213-5 #### [facility] ([id number]) [address], [address] [place] [address] HEPATITIS B SURF AG Negative Normal NEG [facility] Comment on above: Performed By: #### 3 5365-6, CMP, 3016-3, 62109-1 #### [facility] ([id number]) [address], [address] [place] [address] COMPREHENSIVE METABOLIC PANE Augustin 2024 Albumin [Mass/Vol] 3.8 g/dL Normal 3.2-5.3 [facility] Comment on above: Performed By: #### 3 5365-6, CMP, 3016-3, 70576-2 #### [facility] ([id number]) [address], [address] [place] [address] ALP [Catalytic activity/Vol] 48 U/L Normal 39-130 [facility] Comment on above: Performed By: #### 3 5365-6, CMP, 3016-3, #### [facility] ([id number]) [address], [address] [place] [address] ALT [Catalytic activity/Vol] 38 U/L High 0-31 [facility] Comment on above: Performed By: #### 3 5365-6, CMP, 3016-3, 89263-5 #### [facility] ([id number]) [address], [address] [place] [address] Anion gap [Moles/Vol] 9 mmol/L Normal 5-[address] [facility] Comment on above: Performed By: #### 3 5365-6, CMP, 3016-3, 74946-3 #### [facility] ([id number]) [address], [address] [place] [address] AST [Catalytic activity/Vol] 32 U/L Normal 0-41 [facility] Comment on above: Performed By: #### 3 5365-6, CMP, 3016-3, #### [facility] ([id number]) [address], [address] [place] [address] Bilirubin [Mass/Vol] 0.9 mg/dL Normal 0.3-1.2 [facility] Comment on above: Performed By: #### 3 5365-6, [facility], 3016-3, #### [facility] ([id number]) [address], [address] [place] [address] Calcium [Mass/Vol] 8.8 mg/dL Normal 8.5-10.5 [facility] Comment on above: Performed By: #### 3 5365-6, [facility], 6-3, #### [facility] ([id number]) [address], [address] [place] [address] Chloride [Moles/Vol] 104 mmol/L Normal 98-109 [facility] Comment on above: Performed By: #### 3 5365-6, [facility], 3015-3, #### [facility] ([id number]) [address], [address] [place] [address] CO2 [Moles/Vol] 26 mmol/L Normal 22-32 [facility] Comment on above: Performed By: #### 3 5365-6, [facility], 3015-3, #### [facility] ([id number]) [address], [address] [place] [address] Creatinine [Mass/Vol] 0.64 mg/dL Normal 0.40-1.[address] [facility] Comment on above: Result Comment: METH OD TRACEABLE TO IDMS STANDARD Performed By: #### 3 5365-6, CMP, 3016-3, #### [facility] ([id number]) [address], [address] [place] [address] eGFR (CKD-EPI) NON-RACE DEPENDENT >90 Normal >59 [facility] Comment on above: Result Comment: Reported eGFR is based on the CKD-EPI 2020 equation that does not use a race coefficient. Performed By: #### 3 5365-6, [facility], 3016-3, #### [facility] ([id number]) [address], [address] [place] [address] Glucose [Mass/Vol] 80 mg/dL Normal 65-99 [facility] Comment on above: Performed By: #### 3 5365-6, [facility], 6-3, #### [facility] ([id number]) [address], [address] [place] [address] Potassium [Moles/Vol] 3.7 mmol/L Normal 3.5-5.[address] [facility] Comment on above: Performed By: #### 3 5365-6, [facility], 6-3, #### [facility] ([id number]) [address], [address] [place] [address] Protein [Mass/Vol] 6.8 g/dL Normal 6.0-8.0 [facility] Comment on above: Performed By: #### 3 5365-6, [facility], 3015-3, #### [facility] ([id number]) [address], [address] [place] [address] Sodium [Moles/Vol] 139 mmol/L Normal 134-146 [facility] Comment on above: Performed By: #### 3 5365-6, [facility], 6-3, #### [facility] ([id number]) [address], [address] [place] [address] Urea nitrogen [Mass/Vol] 11 mg/dL Normal 5-23 [facility] Comment on above: Performed By: #### 3 5365-6, CMP, 6-3, #### [facility] ([id number]) [address], [address] [place] [address] Lipid 1996 panelon 4 Cholesterol [Mass/Vol] 94 mg/dL Low 150-200 [facility] Comment on above: Performed By: #### 3 5365-6, CMP, 3016-3, 32694-8 #### [facility] ([id number]) [address], [address] [place] [address] Cholesterol in HDL [Mass/Vol] 43 mg/dL Normal >39 [facility] Comment on above: Result Comment: HDL <40 mg/dL - High Risk HDL > or = 40mg/dL- Desirable HDL >60 mg/dL - Negative Risk Performed By: #### 3 5365-6, CMP, 3016-3, 15413-8 #### [facility] ([id number]) [address], [address] [place] [address] Cholesterol in LDL [Mass/Vol] 39 mg/dL Normal <130 [facility] Comment on above: Result Comment: LDL <100 mg/dL - Desirable LDL >160 mg/dL - High Risk Performed By: #### 3 5365-6, CMP, 3016-3, 73292-6 #### [facility] ([id number]) [address], [address] [place] [address] Cholesterol in VLDL [Mass/Vol] 12 mg/dL Normal 0-30 [facility] Comment on above: Performed By: #### 3 5365-6, CMP, 3016-3, 30156-4 #### [facility] ([id number]) [address], [address] [place] [address] CHOLESTEROL:HDL 2.2 Normal 1.0-5.0 [facility] Comment on above: Performed By: #### 3 5365-6, [facility], 3015-3, 64293-6 #### [facility] ([id number]) [address], [facility] [address] [place] [address] Triglyceride [Mass/Vol] 58 mg/dL Normal 27-150 [facility] Comment on above: Performed By: #### 3 5365-6, [facility], 3015-3, #### [facility] ([id number]) [address], [facility] [address] [place] [address] Mullerian inhibiting substan ce [Mass/Vol]on 2024 ANTI MULLERIAN HORM See Below Normal [facility] Comment on above: Result Comment: NOTE TEST RESULT FLAG UNIT REF.RANGE ------ Anti Mclean Hormone 0.54 L ng/mL 0.58-8.13 Test Performed By: [facility] [address] [place] [address] Extracting Machine Operator: Patti Jacobs III #[id number] Performed By: #### 3 5365-6, [facility], 3015-12, #### [facility] ([id number]) [address], [facility] [address] [place] [address] Selenium [Mass/Vol]on 2023 SELENIUM, SER/PLASMA 108.6 ug/L Normal 23.0-190.0 [facility] Comment on above: Result Comment: [...] developed and its performance characteristics determined by [facility]. It has not been cleared or approved by the [place] Food and Drug Administration. This test was performed in a CLIA certified laboratory and is intended for clinical purposes. Performed By: [facility] [address] [place] [address] Extracting Machine Operator: Deangelo Rosario MD, PhD CLIA Number: [id number] Performed By: #### 3 5365-6, [facility], 3015-12, 08923-8 #### [facility] ([id number]) [address] [address] THYROID PROFILEon 2024 Free T4 [Mass/Vol] 0.67 ng/dL Normal 0.61-1.60 [facility] Comment on above: Performed By: #### 3 5365-6, [facility], 3, 46139-3 #### [facility] ([id number]) [address] [address] TSH 2.55 uIU/mL Normal 0.49-4.67 [facility] Comment on above: Performed By: #### 3 5365-6, [facility], 3, 29296-9 #### [facility] ([id number]) [address] [address] VITAMIN E, SER/PLon 01-24-20 VIT E(ALPHA-TOCOPHEROL) 7.6 mg/L Normal 5.5-18.0 [facility] Comment on above: Result Comment: NOTE This test was developed and its performance characteristics determined by [facility]. It has not been cleared or approved by the US Food and Drug Administration. This test was performed in a CLIA certified laboratory and is intended for clinical purposes. Performed By: #### 3 5365-6, [facility], 3015-12, #### [facility] ([id number]) [address], [address] [place] [address] VIT E(GAMMA-TOCOPHEROL) 0.3 mg/L Normal 0.0-6.0 [facility] Comment on above: Result Comment: NOTE Performed By: [facility] [address] [place] [address] Extracting Machine Operator: Deangelo Rosario MD, PhD CLIA Number: [id number] Performed By: #### 3 5365-6, [facility], 3015-12, #### [facility] ([id number]) [address], [address] [place] [address] LIVER PANELon 01-18-2024 Albumin [Mass/Vol] 3.8 g/dL Normal 3.2-5.3 [facility] Comment on above: Performed By: #### 3 5365-6, [facility], 3015-12, #### [facility] ([id number]) [address], [address] [place] [address] ALP [Catalytic activity/Vol] 44 U/L Normal 39-130 [facility] Comment on above: Performed By: #### 3 5365-6, [facility], 3015-12, #### [facility] ([id number]) [address], [address] [place] [address] ALT [Catalytic activity/Vol] 33 U/L High 0-31 [facility] Comment on above: Performed By: #### 3 5365-6, [facility], 3, 82735-6 #### [facility] ([id number]) [address], [address] [place] [address] AST [Catalytic activity/Vol] 30 U/L Normal 0-41 [facility] Comment on above: Performed By: #### 3 5365-6, CMP, 3016-3, 98688-3 #### [facility] ([id number]) [address], [address] [place] [address] Bilirubin [Mass/Vol] 0.7 mg/dL Normal 0.3-1.2 [facility] Comment on above: Performed By: #### 3 5365-6, CMP, 6-3, #### [facility] ([id number]) [address], [address] [place] [address] Bilirubin.direct [Mass/Vol] 0.2 mg/dL Normal 0.0-0.4 [facility] Comment on above: Performed By: #### 3 5365-6, CMP, 6-3, #### [facility] ([id number]) [address], [address] [place] [address] Protein [Mass/Vol] 6.7 g/dL Normal 6.0-8.0 [facility] Comment on above: Performed By: #### 3 5365-6, CMP, 6-3, 45678-2 #### [facility] ([id number]) [address], [address] [place] [address] MAGNESIUMon 01-18-2024 Magnesium [Mass/Vol] 1.7 mg/dL Low 1.8-2.6 [facility] Comment on above: Performed By: #### 3 5365-6, CMP, 6-3, 38252-0 #### [facility] ([id number]) [address], [address] [place] [address] TSH Qnon 01-18-2024 TSH 1.07 uIU/mL Normal 0.49-4.67 [facility] Comment on above: Performed By: #### 3 5365-6, CMP, 3016-3, 68257-6 #### [facility] ([id number]) [address], [address] [place] [address] Vitamin D+Metabolites [Mass/ Vol]on 01-18-2024 VITAMIN D 25 HYD TOT 86.7 ng/mL Normal 30-100 [facility] Comment on above: Result Comment: Vitamin D status 25 [place] Vitamin D Deficiency <20 ng/mL Insufficiency 20-29 ng/mL Sufficiency 30-100 ng/mL Toxicity >100 ng/mL NOTE: A pediatric reference range has not been established by the drawer in [employer]bby loom of this kit. The [place] [employer] recommends a Vitamin D level of = or >20ng/mL in infants and children. Performed By: #### 3 5365-6, [facility], 3016-3, 19467-1 #### [facility] ([id number]) [address], [address] [place] [address] US THYROIDon 01-06-2024 US THYROID US THYROID [...] Friend MD on 01/06/2024 6:53 AM Normal [facility] FREE T3on 01-03-2024 Free T3 [Mass/Vol] 3.48 pg/mL Normal 2.50-3.90 [facility] Comment on above: Performed By: #### 3 5365-6, [facility], 3016-3, 76496-1 #### [facility] ([id number]) [address] [place] [address], [address] [place] [address] Reference Lab Test IDon 03-0 CELIAC COMP CASCADE SEE COMMENTS 01/10/2024 10:26 PM Normal [facility] Comment on above: Result Comment: NOTE [...] instructions. Its performance characteristics were determined by [facility] in a manner consistent with CLIA requirements. This test has not been cleared or approved by the U.S. Food and Drug Administration. CLIA: [id number] CLIA Dining Room Supervisor: ALAN LOUIS MD,PhD Celiac Disease See Note Interpretation See Comment: Celiac disease probable. Consider biopsy. Test Performed by: [facility] [address] [id number] Dining Room Supervisor: Alan Louis M.D. Ph.D.; CLIA# [id number] Test Performed by: [facility] [address] [place] [address] Dining Room Supervisor: Alan Louis M.D. Ph.D.; CLIA# [id number] Performed By: #### 3 5365-6, [facility], 3016-3, 63691-2 #### [facility] ([id number]) [address] [place] [address], [facility] [address] [place] [address] THYROID PROFILEon 01-03-2024 Free T4 [Mass/Vol] 0.82 ng/dL Normal 0.61-1.60 [facility] Comment on above: Performed By: #### 3 5365-6, [facility], 3016-3, 55863-4 #### [facility] ([id number]) [address] [place] [address], [facility] [address] [place] [address] TSH 0.41 uIU/mL Low 0.49-4.67 [facility] Comment on above: Performed By: #### 3 5365-6, [facility], 3016-3, 59429-4 #### [facility] ([id number]) [address] [place] [address], [facility] [address] [place] [address] tTG IgA IA Qn (S)on 01-03-20 ENDOMYSIAL ABS IGA Negative Normal Negative [facility] Comment on above: Result Comment: NOTE [...] as indicated by the Celiac Disease Comprehensive [place] (Speed Test Unit Code CDCOM). In addition serum IgA endomysial antibody may also be negative in gluten-sensitive patients (with celiac disease, dermatitis herpetiformis or other gluten-sensitive disorders), who adhere to a strict gluten-free diet. ADDITIONAL INFORMATION This test has been modified from the drawer in dobby loom's instructions. Its performance characteristics were determined by [facility] in a manner consistent with CLIA requirements. This test has not been cleared or approved by the U.S. Food and Drug Administration. Test Performed by: [place] [address] Dining Room Supervisor: Alan Louis M.D. Ph.D.; CLIA# [id number] Performed By: #### 3 5365-6, [facility], 3016-3, 11739-4 #### [facility] ([id number]) [address] [facility], [address] [place] [address] FREE T3on 12-21-2023 Free T3 [Mass/Vol] 3.75 pg/mL Normal 2.50-3.90 [facility] Comment on above: Performed By: #### T HYR, 3051-0, 8099-4 #### [facility] ([id number]) [address] [facility], [address] [place] [address] #### 02675-3 #### [facility] ([id number]) [address] [place] [address] Mullerian inhibiting substan ce [Mass/Vol]on 12-21-2023 ANTI MULLERIAN HORM See Below Normal [facility] Comment on above: Result Comment: NOTE TEST RESULT FLAG UNIT REF.RANGE ------ Anti Mclean Hormone 0.37 L ng/mL 0.58-8.13 Test Performed By: [place] [address] Extracting Machine Operator: Patti Jacobs III #[id number] Performed By: #### 3 5365-6, [facility], 3016-3, 44965-0 #### [facility] ([id number]) [address] [facility], [address] [place] [address] THYROID PROFILEon 12-21-2023 Free T4 [Mass/Vol] 0.94 ng/dL Normal 0.61-1.60 [facility] Comment on above: Performed By: #### T NACHOR, 3051-0, 8099-4 #### [facility] ([id number]) [address] [facility], [facility] [address] [place] [address] #### 83711-0 #### [facility] ([id number]) [address] [place] [address] TSH 0.19 uIU/mL Low 0.49-4.67 [facility] Comment on above: Performed By: #### T HYR, 3051-0, 8099-4 #### [facility] ([id number]) [address] [facility], [facility] [address] [place] [address] #### 47723-5 #### [facility] ([id number]) [address] [place] [address] THYROPEROXIDASE ABon 024 TPO Ab Qn 415 [IU]/mL High <10 [facility] Comment on above: Performed By: #### T HYR, 3051-0, 8099-4 #### [facility] ([id number]) [address] [facility], [address] [place] [address] #### 58689-4 #### [facility] ([id number]) [address] [place] [address], [place] [address] Thyroid stimulating immunogl obulins Qn (S)on 12-21-2023 TSI See Below Normal [facility] Comment on above: Result Comment: NOTE [...] Clinical correlation is required. Test Performed By: [facility] [address] [place] [address] Extracting Machine Operator: Eloy Dangelo III, M.D. CLIA #[id number] Performed By: #### 3 5365-6, [facility], 3016-3, 26739-3 #### [facility] ([id number]) [address] [place] [address], [address] [place] [address] Mullerian inhibiting substan ce [Mass/Vol]on 12-13-2023 ANTI MULLERIAN HORM See Below Normal [facility] Comment on above: Result Comment: NOTE TEST RESULT FLAG UNIT REF.RANGE ------ Anti Mclean Hormone 0.31 L ng/mL 0.58-8.13 Test Performed By: [facility] [address] [place] [address] Extracting Machine Operator: Eloy Dangelo III, M.D. CLIA #[id number] Performed By: #### 3 8476-8 #### [facility] ([id number]) [address] [place] [address] #### 2839-9 #### [facility] ([id number]) [address], [address] [place] [address] Progesterone [Mass/Vol]on PROGESTERONE 3.5 ng/mL [facility] Comment on above: Result Comment: FEMALES: 1st Tri: 4.7-50.7 ng/ml 2nd Tri: 19.4-45.3 ng/ml MENSTRUATING FEMALES: Follicular: 0.3-1.5 ng/ml Mid Luteal: 5.2-18.6 ng/ml [place]: <0.1-0.8 ng/ml Performed By: #### 3 8476-8 #### [facility] ([id number]) [address] [place] [address] #### 2839-9 #### [facility] ([id number]) [address] [facility], [address] [place] [address] US PELVIC WITH TRANSVAGINALo n 12-13-2023 US [...] Friend MD on 12/13/2023 6:28 PM Normal [facility] Surgical Pathology Reporton 11-27-2023 Surgical Pathology Report (NOTE) Path Number: [id number] -- Diagnosis -- GALLBLADDER, CHOLECYSTECTOMY: -CHRONIC CHOLECYSTITIS [...] lesions or periductal lymph nodes are identified. X Ray Service Technician sections 1c. tm Peggy Naylor/kb2:11/27/2023 Microscopic Description Microscopic examination performed. Processing Lab: [address] [address] Interpretation Performed at [address] [address] SURGICAL PATHOLOGY CONSULTATION Patient Name: PHILLIP AVALOS [facility] Rec: [id number] [facility] ANATOMIC PATHOLOGY [address] [place] [address]. [place], [place] [address] Normal [facility] COMPREHENSIVE METABOLIC PANE [place] 11-16-2023 Albumin [Mass/Vol] 3.7 g/dL Normal 3.2-5.3 [facility] Comment on above: Performed By: #### 3 5365-6, CMP, 3016-3, 90135-2 #### [facility] ([id number]) [address], [address] [place] [address] ALP [Catalytic activity/Vol] 45 U/L Normal 39-130 [facility] Comment on above: Performed By: #### 3 5365-6, CMP, 3016-3, 59368-1 #### [facility] ([id number]) [address], [address] [place] [address] ALT [Catalytic activity/Vol] 51 U/L High 0-31 [facility] Comment on above: Performed By: #### 3 5365-6, CMP, 3016-3, #### [facility] ([id number]) [address], [address] [place] [address] Anion gap [Moles/Vol] 8 mmol/L Normal 5-[address] [facility] Comment on above: Performed By: #### 3 5365-6, CMP, 6-3, 15873-0 #### [facility] ([id number]) [address], [address] [place] [address] AST [Catalytic activity/Vol] 40 U/L Normal 0-41 [facility] Comment on above: Performed By: #### 3 5365-6, CMP, 6-3, #### [facility] ([id number]) [address], [address] [place] [address] Bilirubin [Mass/Vol] 0.7 mg/dL Normal 0.3-1.2 [facility] Comment on above: Performed By: #### 3 5365-6, CMP, 3016-3, 46694-7 #### [facility] ([id number]) [address], [address] [place] [address] Calcium [Mass/Vol] 8.8 mg/dL Normal 8.5-10.5 [facility] Comment on above: Performed By: #### 3 5365-6, CMP, 3016-3, 32766-5 #### [facility] ([id number]) [address], [address] [place] [address] Chloride [Moles/Vol] 106 mmol/L Normal 98-109 [facility] Comment on above: Performed By: #### 3 5365-6, CMP, 3016-3, 16978-4 #### [facility] ([id number]) [address], [address] [place] [address] CO2 [Moles/Vol] 27 mmol/L Normal 22-32 [facility] Comment on above: Performed By: #### 3 5365-6, CMP, 3016-3, 58514-4 #### [facility] ([id number]) [address], [address] [place] [address] Creatinine [Mass/Vol] 0.60 mg/dL Normal 0.40-1.[address] [facility] Comment on above: Result Comment: METH OD TRACEABLE TO IDMS STANDARD Performed By: #### 3 5365-6, CMP, 3016-3, 80608-4 #### [facility] ([id number]) [address], [address] [place] [address] eGFR (CKD-EPI) NON-RACE DEPENDENT >90 Normal >59 [facility] Comment on above: Result Comment: Reported eGFR is based on the CKD-EPI 2021 equation that does not use a race coefficient. Performed By: #### 3 5365-6, CMP, 3016-3, 88929-3 #### [facility] ([id number]) [address], [address] [place] [address] Glucose [Mass/Vol] 79 mg/dL Normal 65-99 [facility] Comment on above: Performed By: #### 3 5365-6, CMP, 3016-3, 87984-5 #### [facility] ([id number]) [address], [address] [place] [address] Potassium [Moles/Vol] 3.8 mmol/L Normal 3.5-5.[address] [facility] Comment on above: Performed By: #### 3 5365-6, CMP, 3016-3, 48132-8 #### [facility] ([id number]) [address], [address] [place] [address] Protein [Mass/Vol] 6.4 g/dL Normal 6.0-8.0 [facility] Comment on above: Performed By: #### 3 5365-6, [facility], 6-3, 41199-4 #### [facility] ([id number]) [address], [address] [place] [address] Sodium [Moles/Vol] 141 mmol/L Normal 134-146 [facility] Comment on above: Performed By: #### 3 5365-6, [facility], 3015-3, 89551-0 #### [facility] ([id number]) [address], [address] [place] [address] Urea nitrogen [Mass/Vol] 11 mg/dL Normal 5-23 [facility] Comment on above: Performed By: #### 3 5365-6, CMP, 6-3, 60658-2 #### [facility] ([id number]) [address], [address] [place] [address] MAGNESIUMon 11-16-2023 Magnesium [Mass/Vol] 1.8 mg/dL Normal 1.8-2.6 [facility] Comment on above: Performed By: #### 3 5365-6, CMP, 6-3, 27956-4 #### [facility] ([id number]) [address], [address] [place] [address] TSH Qnon 11-16-2023 TSH 0.19 uIU/mL Low 0.49-4.67 [facility] Comment on above: Performed By: #### 3 5365-6, [facility], 3016-3, 33508-0 #### [facility] ([id number]) [address] [place] [address], [address] [place] [address] Vitamin D+Metabolites [Mass/ Vol]on 11-16-2023 VITAMIN D 25 HYD TOT 65.7 ng/mL Normal 30-100 [facility] Comment on above: Result Comment: Vitamin D status 25 [place] Vitamin D Deficiency <20 ng/mL Insufficiency 20-29 ng/mL Sufficiency 30-100 ng/mL Toxicity >100 ng/mL NOTE: A pediatric reference range has not been established by the drawer in dobby loom of this kit. The [place] [employer] recommends a Vitamin D level of = or >20ng/mL in infants and children. Performed By: #### 3 5365-6, [facility], 3016-3, 24369-1 #### [facility] ([id number]) [address] [place] [address], [address] [place] [address] CBC AUTO DIFFon 03-13-2023 BASO # 0.0 103/ul Normal 0.0-0.1 [facility] Comment on above: Performed By: #### C BC #### [facility] [address] [address] [address] Froy Calderón Basophils/100 WBC (Bld) 0.6 % Normal 0.2-2.0 [facility] Comment on above: Performed By: #### C BC #### [facility] [address] [address] [address] Froy Calderón EO # 0.3 103/ul Normal 0.0-0.7 [facility] Comment on above: Performed By: #### C BC #### [facility] [address] [address] [address] Froy Calderón Eosinophils/100 WBC (Bld) 3.9 % Normal 0.9-7.0 [facility] Comment on above: Performed By: #### C BC #### [facility] [address] [place] [address] Dr. Froy Calderón Erythrocyte distribution width (RBC) [Ratio] 12.0 % Normal 11.0-15.0 [facility] Comment on above: Performed By: #### C BC #### [facility] [address] [place] [address] Dr. Froy Calderón Hematocrit (Bld) [Volume fraction] 38.6 % Normal 36.0-48.0 [facility] Comment on above: Performed By: #### C BC #### [facility] [address] [place] [address] Dr. Froy Calderón Hemoglobin (Bld) [Mass/Vol] 12.9 g/dL Normal 12.0-16.0 [facility] Comment on above: Performed By: #### C BC #### [facility] [address] [place] [address] Dr. Froy Calderón IG # 0.02 10e3/ul Normal 0.00-0.03 [facility] Comment on above: Performed By: #### C BC #### [facility] [address] [place] [address] Dr. Froy Calderón IG % 0.3 % Normal 0.0-0.5 [facility] Comment on above: Performed By: #### C BC #### [facility] [address] [place] [address] Dr. Froy Calderón LYMPH # 1.8 103/ul Normal 1.2-3.8 [facility] Comment on above: Performed By: #### C BC #### [facility] [address] [place] [address] Dr. Froy Calderón Lymphocytes/100 WBC (Bld) 26.5 % Normal 20.5-60.0 [facility] Comment on above: Performed By: #### C BC #### [facility] [address] [place] [address] Dr. Froy Calderón MANUAL DIFF REQ NO Normal [facility] Comment on above: Performed By: #### C BC #### [facility] [address] [place] [address] Dr. Froy Calderón MCH (RBC) [Entitic mass] 31.3 pg Normal 26.7-34.0 [facility] Comment on above: Performed By: #### C BC #### [facility] [address] [place] [address] Dr. Froy Calderón MCHC (RBC) [Mass/Vol] 33.4 g/dL Normal 29.9-35.2 [facility] Comment on above: Performed By: #### C BC #### [facility] [address] [place] [address] Dr. Froy Calderón MCV (RBC) [Entitic vol] 93.7 fL Normal 81.0-99.0 [facility] Comment on above: Performed By: #### C BC #### [facility] [address] [place] [address] Dr. Froy Calderón MONO # 0.6 103/ul Normal 0.3-0.8 [facility] Comment on above: Performed By: #### C BC #### [facility] [address] [place] [address] Dr. Froy Calderón Monocytes/100 WBC (Bld) 8.1 % Normal 1.7-12.0 [facility] Comment on above: Performed By: #### C BC #### [facility] [address] [place] [address] Dr. Froy Calderón NEUT # 4.2 103/ul Normal 1.4-6.5 [facility] Comment on above: Performed By: #### C BC #### [facility] [address] [place] [address] Dr. Froy Calderón Neutrophils/100 WBC (Bld) 60.6 % Normal 43.0-75.0 [facility] Comment on above: Performed By: #### C BC #### [facility] [address] [place] [address] Dr. Froy Calderón Platelet mean volume (Bld) [Entitic vol] 9.2 fL Critically low 9.5-13.5 [facility] Comment on above: Performed By: #### C BC #### [facility] [address] [address] [address] Froy Calderón PLT 226 103/ul Normal 150-450 [facility] Comment on above: Performed By: #### C BC #### [facility] [address] [address] [address] Froy Calderón RBC 4.12 106/ul Critically low 4.20-5.40 [facility] Comment on above: Performed By: #### C BC #### [facility] [address] [address] [address] Froy Calderón WBC 7.0 103/ul Normal 4.0-11.0 [facility] Comment on above: Performed By: #### C BC #### [facility] [address] [place] [address] Dr. Froy Calderón FREE T4on 03-13-2023 Free T4 [Mass/Vol] 0.96 ng/dL Normal 0.76-1.46 [facility] Comment on above: Performed By: #### F T4 #### [facility] [address] [address] [address] Froy Calderón GLYCOHEMOGLOBIN A1Con 2022 ADA RECOMMENDATION SEE BELOW Normal [facility] Comment on above: Result Comment: ADA RECOMMENDED LIMIT 4.0 - 6.0 ADA THERAPEUTIC TARGET < 7.0 ACTION SUGGESTED > 7.0 Performed By: #### A 1C #### [facility] [address] [address] [address] Froy Calderón Glucose [Mass/Vol] 91 mg/dL Normal [facility] Comment on above: Performed By: #### A 1C #### [facility] [address] [address] [address] Froy Calderón HbA1c (Bld) [Mass fraction] 4.8 % Normal 4.5-6.2 [facility] Comment on above: Performed By: #### A 1C #### [facility] [address] [place] [address] Dr. Froy Calderón TSHon 03-13-2023 TSH 5.367 uIU/mL Critically high 0.358-3.740 [facility] Comment on above: Performed By: #### T SH #### [facility] [address] [address] [address] Froy Calderón US PELVIS AND TRANSVAGon [...] by: NATALIE KHAN Date: 2023-02-19 09:20 Normal [facility] PAP ACOG PANEL 2: 30 to 65on 01-31-2023 . . Normal [facility] Comment on above: Result Comment: Perf ormed at: WB Performed By: #### [id number] #### [facility] [address] [place] [address] Dr. Froy Calderón Age Gdln ACOG Testing 30-65 Normal [facility] Comment on above: Performed By: #### [id number] #### [facility] [address] [place], [place] [id number] Dr. Froy Calderón DIAGNOSIS: Comment Normal [facility] Comment on above: Result Comment: NEGA TIVE FOR INTRAEPITHELIAL LESION OR MALIGNANCY. Performed at: WB Performed By: #### [id number] #### [facility] [address] [address] [address] Froy Calderón HPV Aptima Negative Normal Negative [facility] Comment on above: Result Comment: This nucleic acid amplification test detects fourteen high-risk HPV types (16,18,31,33,35,39,45,51,52,56,58,59,66,68) without differentiation. Performed at: =G Performed By: #### [id number] #### [facility] [address] [address] [address] Froy Calderón HPV Genotype Reflex Comment Normal [facility] Comment on above: Result Comment: Crit eria not met, HPV Genotype not performed. Performed at: WB Performed By: #### [id number] #### [facility] [address] [place] [address] Dr. Froy Calderón Methodology: Comment Normal [facility] Comment on above: Result Comment: This liquid based ThinPrep(R) pap test was screened with the use of an image guided system. Performed at: WB Performed By: #### [id number] #### [facility] [address] [place] [address] Dr. Froy Calderón Note: Comment Normal [facility] Comment on above: Result Comment: The Pap smear is a screening test designed to aid in the detection of premalignant and malignant conditions of the uterine cervix. It is not a diagnostic procedure and should not be used as the sole means of detecting cervical cancer. Both false-positive and false-negative reports do occur. . Performed at: WB Performed By: #### [id number] #### [facility] [address] [address] [address] Froy Calderón Performed by: Comment Normal [facility] Comment on above: Result Comment: Racheal Villatoro, Driver Examiner Performed at: WB Performed By: #### [id number] #### [facility] [address] [address] [address] Froy Calderón Specimen adequacy: Comment Normal [facility] Comment on above: Result Comment: Sati sfactory for evaluation. Endocervical and/or squamous metaplastic cells (endocervical component) are present. Performed at: WB Performed By: #### [id number] #### [facility] [address] [address] [address] Froy Calderón Cytology Cervical or vaginal smear or scraping studyon 2023 [facility] PREG QUANT HCGon 12-03-2022 HCG QUANT <1 Normal [facility] Comment on above: Performed By: #### P REGQNT #### [facility] [address] [address] [address] Froy Calderón HCG RANGE SEE BELOW Normal [facility] Comment on above: Result Comment: 5-50 0.2-1 WEEK 50-500 1-2 WEEKS 100-5,000 2-3 WEEKS 500-10,000 3-4 WEEKS 1,000-50,000 4-5 WEEKS 10,000-100,000 5-6 WEEKS 15,000-200,000 6-8 WEEKS 10,000-100,000 2-3 MONTHS Performed By: #### P REGQNT #### [facility] [address] [place] [address] Dr. Froy Calderón Basic Metabolic Panelon 09-0 Anion gap [Moles/Vol] 10 mmol/L 9 - 17 mmol/L [facility] Calcium [Mass/Vol] 8.4 mg/dL Low 8.6 - 10. 4 mg/dL [facility] Chloride [Moles/Vol] 107 mmol/L 98 - 10 7 mmol/L [facility] CO2 [Moles/Vol] 21 mmol/L 20 - 31 mmol/L [facility] Creatinine [Mass/Vol] 0.61 mg/dL 0.5 - 0.9 mg/dL [facility] GFR >60 60 - PI NF mL/min [facility] GFR Non- >60 60 - PINF mL/min [facility] GFR/1.73 sq M.predicted MDRD (S/P/Bld) [Vol rate/Area] [facility] Comment on above: Average GFR for 20-2 9 years old: 116 mL/min/1.73sq m Chronic Kidney Disease: <60 mL/min/1.73sq m Kidney failure: <15 mL/min/1.73sq m eGFR calculated using average adult body mass. Additional eGFR calculator available at: http://www.[employer]/multiple_crcl_2012.htm Glucose [Mass/Vol] 107 mg/dL High 70 - 99 mg/dL [facility] Interpretation and review of laboratory results Abnormal [facility] Potassium [Moles/Vol] 5.0 mmol/L 3.7 - 5.3 mmol/L [facility] Sodium [Moles/Vol] 138 mmol/L 135 - 144 mmol/L [facility] Urea nitrogen (BldV) [Mass/Vol] 7 mg/dL 6 - 20 mg/dL [facility] CBCon 07-04-2022 Hematocrit (Bld) [Volume fraction] 39.8 % 36.3 - 47.1 % [facility] Hemoglobin (Bld) [Mass/Vol] 13.4 g/dL 11.9 - 15.1 g/dL [facility] Interpretation and review of laboratory results Abnormal [facility] MCH (RBC) [Entitic mass] 30.1 pg 25.2 - 33.5 pg [facility] MCHC (RBC) [Mass/Vol] 33.7 g/dL 28.4 - 34.8 g/dL [facility] MCV (RBC) [Entitic vol] 89.4 fL 82.6 - 102.9 fL [facility] NRBC Automated 0.0 0.0 per 100 WBC [facility] Platelet distribution width (Bld) [Ratio] 11.6 % Low 11.8 - 14.4 % [facility] Platelet mean volume (Bld) [Entitic vol] 9.6 fL 8.1 - 13.5 fL [facility] Platelets (Bld) [#/Vol] 217 10*3/uL [facility] RBC (Bld) [#/Vol] 4.45 10*6/uL 3.95 - 5.1 1 m/uL [facility] WBC (Bld) [#/Vol] 13.6 10*3/uL High [facility] Basic Metabolic Panelon 09- Anion gap [Moles/Vol] 14 mmol/L 9 - 17 mmol/L [facility] Calcium [Mass/Vol] 8.8 mg/dL 8.6 - 10. 4 mg/dL [facility] Chloride [Moles/Vol] 103 mmol/L 98 - 10 7 mmol/L [facility] CO2 [Moles/Vol] 18 mmol/L Low 20 - 31 mmol/L [facility] Creatinine [Mass/Vol] 0.66 mg/dL 0.5 - 0.9 mg/dL [facility] GFR >60 60 - PI NF mL/min [facility] GFR Non- >60 60 - PINF mL/min [facility] GFR/1.73 sq M.predicted MDRD (S/P/Bld) [Vol rate/Area] [facility] Comment on above: Average GFR for 20-2 9 years old: 116 mL/min/1.73sq m Chronic Kidney Disease: <60 mL/min/1.73sq m Kidney failure: <15 mL/min/1.73sq m eGFR calculated using average adult body mass. Additional eGFR calculator available at: http://www.[employer]/multiple_crcl_2011.htm Glucose [Mass/Vol] 126 mg/dL High 70 - 99 mg/dL [facility] Interpretation and review of laboratory results Abnormal [facility] Potassium [Moles/Vol] 4.3 mmol/L 3.7 - 5.3 mmol/L [facility] Sodium [Moles/Vol] 135 mmol/L 135 - 144 mmol/L [facility] Urea nitrogen (BldV) [Mass/Vol] 11 mg/dL 6 - 20 mg/dL [facility] CBC without Diffon Hematocrit (Bld) [Volume fraction] 46.4 % 36.3 - 47.1 % [facility] Hemoglobin (Bld) [Mass/Vol] 15.2 g/dL High 11.9 - 15.1 g/dL [facility] Interpretation and review of laboratory results Abnormal [facility] MCH (RBC) [Entitic mass] 29.9 pg 25.2 - 33.5 pg [facility] MCHC (RBC) [Mass/Vol] 32.8 g/dL 28.4 - 34.8 g/dL [facility] MCV (RBC) [Entitic vol] 91.2 fL 82.6 - 102.9 fL [facility] NRBC Automated 0.0 0.0 per 100 WBC [facility] Platelet distribution width (Bld) [Ratio] 11.9 % 11.8 - 14.4 % [facility] Platelet mean volume (Bld) [Entitic vol] 9.4 fL 8.1 - 13.5 fL [facility] Platelets (Bld) [#/Vol] 232 10*3/uL [facility] RBC (Bld) [#/Vol] 5.09 10*6/uL 3.95 - 5.1 1 m/uL [facility] WBC (Bld) [#/Vol] 9.0 10*3/uL [facility] PO[facility] urine pregnancyon 07-03 Beta HCG ( test) Ql (U) Negative NEGATIVE [facility] Comment on above: Specimens with hCG l evels near the threshold of the test (25 mIU/mL) may give a negative or indeterminate result. In such cases, another test should be performed with a new specimen in 48-72 hours. If early is suspected clinically in this setting, correlation with quantitative serum b-hCG level is suggested. [facility] Gastroenterology Office/Clin ic Noteon 03-29-2021 Gastroenterology [...] by Magdalene Banerjee 04/03/2021 09:24 EDT Normal [facility] 02-27-2021 Consent [id number]# 1.00CD:127 Normal [facility] Registrationon 02-27-2021 Registration [id number]# 1.00CD:127 [facility] Vital Signs Date Time Vital Sign Value Performing Clinician Facility 12-02-2024 10:45-0500 Body mass index (BMI) [Ratio] 27.17 kg/m2 Jake Fe DO Work Phone: [facility] 12-02-2024 10:45-0500 Body weight 88.36 kg Jake Fe DO Work Phone: [facility] 12-02-2024 10:45-0500 Diastolic blood pressure 72 mm[Hg] Jake Fe DO Work Phone: [facility] 12-02-2024 10:45-0500 Systolic blood pressure 110 mm[Hg] Jake Fe DO Work Phone: [facility] 11-20-2024 09:56-0500 Body mass index (BMI) [Ratio] 27.66 kg/m2 Ronaldo Mcnulty MD Work Phone: [facility] 11-20-2024 09:56-0500 Body weight 87.45 kg Ronaldo Mcnulty MD Work Phone: [facility] 11-20-2024 09:56-0500 Diastolic blood pressure 78 mm[Hg] Ronaldo Mcnulty MD Work Phone: [facility] 11-20-2024 09:56-0500 Heart rate 86 /min Ronaldo Mcnulty MD Work Phone: [facility] 11-20-2024 09:56-0500 Systolic blood pressure 116 mm[Hg] Ronaldo Mcnulty MD Work Phone: [facility] 11-18-2024 15:49-0500 Body mass index (BMI) [Ratio] 27.06 kg/m2 Jake Fe DO Work Phone: [facility] 11-18-2024 15:49-0500 Body weight 88 kg Jake Fe DO Work Phone: [facility] 11-18-2024 15:49-0500 Diastolic blood pressure 68 mm[Hg] Jake Fe DO Work Phone: [facility] 11-18-2024 15:49-0500 Systolic blood pressure 116 mm[Hg] Jake Fe DO Work Phone: [facility] 11-04-2024 14:47-0500 Body mass index (BMI) [Ratio] 27.03 kg/m2 Jake Fe DO Work Phone: [facility] 11-04-2024 14:47-0500 Body weight 87.91 kg Jake Fe DO Work Phone: [facility] 11-04-2024 14:47-0500 Diastolic blood pressure 70 mm[Hg] Jake Fe DO Work Phone: [facility] 11-04-2024 14:47-0500 Systolic blood pressure 120 mm[Hg] Jake Fe DO Work Phone: [facility] 10-22-2024 11:17-0500 Body mass index (BMI) [Ratio] 26.33 kg/m2 Jake Fe DO Work Phone: [facility] 10-22-2024 11:17-0500 Body weight 85.64 kg Jkae Fe DO Work Phone: [facility] 10-22-2024 11:17-0500 Diastolic blood pressure 70 mm[Hg] Jake Fe DO Work Phone: [facility] 10-22-2024 11:17-0500 Systolic blood pressure 110 mm[Hg] Jake Fe DO Work Phone: [facility] 09-29-2024 09:25-0500 Body mass index (BMI) [Ratio] 25.8 kg/m2 Jake Fe DO Work Phone: [facility] 09-29-2024 09:25-0500 Body weight 83.92 kg Jake Fe DO Work Phone: [facility] 09-29-2024 09:25-0500 Diastolic blood pressure 72 mm[Hg] Jake Fe DO Work Phone: [facility] 09-29-2024 09:25-0500 Systolic blood pressure 102 mm[Hg] Jake Fe DO Work Phone: [facility] 09-01-2024 11:46-0500 Body mass index (BMI) [Ratio] 24.69 kg/m2 Jake Fe DO Work Phone: [facility] 09-01-2024 11:46-0500 Body weight 80.29 kg Jake Fe DO Work Phone: [facility] 09-01-2024 11:46-0500 Diastolic blood pressure 60 mm[Hg] Jake Fe DO Work Phone: [facility] 09-01-2024 11:46-0500 Systolic blood pressure 100 mm[Hg] Jake Fe DO Work Phone: [facility] 08-03-2024 09:04-0400 Body mass index (BMI) [Ratio] 23.85 kg/m2 Katherine VELAZCO Work Phone: [facility] 08-03-2024 09:04-0400 Body weight 77.56 kg Katherine VELAZCO Work Phone: [facility] 08-03-2024 09:04-0400 Diastolic blood pressure 72 mm[Hg] Katherine VELAZCO Work Phone: [facility] 08-03-2024 09:04-0400 Systolic blood pressure 118 mm[Hg] Katherine VELAZCO Work Phone: [facility] 07-07-2024 09:24-0400 Body mass index (BMI) [Ratio] 22.59 kg/m2 Jake Fe DO Work Phone: [facility] 07-07-2024 09:24-0400 Body weight 73.48 kg Jake Fe DO Work Phone: [facility] 07-07-2024 09:24-0400 Diastolic blood pressure 60 mm[Hg] Jake Fe DO Work Phone: [facility] 07-07-2024 09:24-0400 Systolic blood pressure 110 mm[Hg] Jake Fe DO Work Phone: [facility] 07-04-2022 11:11-0400 Body temperature 99.3 [degF] Bret Manuel DO Work Phone: [facility] 07-04-2022 11:11-0400 Diastolic blood pressure 75 mm[Hg] Bret Manuel DO Work Phone: [facility] 07-04-2022 11:11-0400 Heart rate 63 /min Bret Manuel DO Work Phone: [facility] 07-04-2022 11:11-0400 Respiratory rate 16 /min Bret Manuel DO Work Phone: [facility] 07-04-2022 11:11-0400 SaO2% (BldA) [Mass fraction] 99 % Bret Manuel DO Work Phone: [facility] 07-04-2022 11:11-0400 Systolic blood pressure 141 mm[Hg] Bret Manuel DO Work Phone: [facility] 07-03-2022 09:50-0400 Body height 177.8 cm Bret Manuel DO Work Phone: [facility] 07-03-2022 09:50-0400 Body mass index (BMI) [Ratio] 38.17 kg/m2 Bret Manuel DO Work Phone: [facility] 07-03-2022 09:50-0400 Body weight 120.66 kg Bret Manuel DO Work Phone: [facility] Encounters Encounter Date Encounter Type Care Provider Facility Start: 12-10-2024 End: 12-10-2024 Clinisync Result Encounter Jake Fe DO Work Phone: [facility] External Department Unsolicited Start: 12-10-2024 End: 12-10-2024 Clinisync Result Encounter Jake Fe DO Work Phone: [facility] External Department Unsolicited Start: 12-02-2024 End: 12-02-2024 Bamboo flowsheet Jake [...] Mcnulty MD Work Phone: [facility] Comment on above: H/O gastric sleeve ( Primary Dx) Start: 11-18-2024 End: 11-18-2024 Office outpatient visit 15 minutes Jake Fe DO Work Phone: [facility] Comment on above: Third trimester preg qamar; 32 weeks gestation of Start: 11-18-2024 End: 11-18-2024 ambulatory JAKE FE Not Available Start: 11-18-2024 End: 11-18-2024 Bamboo flowsheet Jaek Fe DO Work Phone: [facility] Start: 11-18-2024 End: 11-18-2024 Bamboo flowsheet Jake Fe DO Work Phone: [facility] Start: 11-11-2024 End: 11-11-2024 External Result Encounter Jake Fe DO Work Phone: [facility] External Department Unsolicited Start: 11-11-2024 End: 11-11-2024 External Result Encounter Jake Fe DO Work Phone: [facility] External Department Unsolicited Start: 11-11-2024 End: 11-11-2024 ambulatory JAKE R FE [facility] Start: 11-04-2024 End: 11-04-2024 Office outpatient [...] 09-01-2024 Office outpatient visit 15 minutes Jake Fe DO Work Phone: [facility] Comment on above: 21 weeks gestation o f ; Second trimester Start: 09-01-2024 End: 09-01-2024 ambulatory JAKE FE Not Available Start: 08-26-2024 End: 08-26-2024 Emergency department patient visit ROGER Velázquez [facility] Start: 08-15-2024 End: 08-15-2024 External Result Encounter Jake Fe DO Work Phone: [facility] External Department Unsolicited Start: 08-15-2024 End: 08-15-2024 External Result Encounter Jake Fe DO Work Phone: [facility] External [facility] Unsolicited Start: 08-15-2024 End: 08-15-2024 ambulatory JAKE R FEVan [facility] Start: 08-03-2024 End: 08-03-2024 Bamboo flowsheet Katherine VELAZCO Work Phone: [facility] Start: 08-03-2024 End: 08-04-2024 Bamboo flowsheet Katherine VELAZCO Work Phone: [facility] Start: 08-03-2024 End: 08-04-2024 External Result Encounter Katherine VELAZCO Work Phone: [facility] Department Unsolicited Start: 08-03-2024 End: 08-03-2024 Office outpatient visit 15 minutes Katherine VELAZCO Work Phone: [facility] Comment on above: Well woman exam with routine gynecological exam; Exposure to STD; Need for maternal serum alpha-protein (MSAFP) screening; Second trimester ; 17 weeks gestation of ; Screening, , for anatomic survey Start: 08-03-2024 End: 08-03-2024 Patient encounter procedure Katherine VELAZCO Work Phone: [facility] Start: 08-03-2024 End: 08-03-2024 ambulatory KATHERINE DE LA TORRE Not Available Start: 07-18-2024 End: 07-18-2024 External Result Encounter Jake Fe DO Work Phone: [facility] Unsolicited Start: 07-18-2024 End: 07-18-2024 External Result Encounter Jake Fe DO Work Phone: [facility] Unsolicited Start: 07-18-2024 End: 07-18-2024 ambulatory JAKE R FE [facility] Start: 07-13-2024 End: 07-13-2024 Orders Only Jake R Fe DO Work Phone: [facility] Comment on above: Hypothyroidism, unsp ecified Start: 07-07-2024 End: 07-07-2024 Bamboo flowsheet Jake Fe DO Work Phone: [facility] Start: 07-07-2024 End: 07-07-2024 Bamboo flowsheet Jake Fe DO Work Phone: [facility] Start: 07-07-2024 End: 07-07-2024 Office outpatient visit 15 minutes Jake Fe DO Work Phone: [facility] Comment on above: 13 weeks gestation o f ; Gastroesophageal reflux in Start: 07-07-2024 End: 07-07-2024 ambulatory JAKE FE Not Available Start: 06-20-2024 End: 06-20-2024 External Result Encounter Jake Fe DO Work Phone: [facility] External Department Unsolicited Start: 06-20-2024 End: 06-20-2024 External Result Encounter Jake Miramontes DO Work Phone: [facility] External Department Unsolicited Start: 06-20-2024 End: 06-20-2024 ambulatory AJKE Velázquez [facility] Start: 06-12-2024 End: 06-12-2024 ambulatory JAKE MIRAMONTES Not Available Start: 06-06-2024 End: 06-06-2024 Emergency department patient visit JAKE Velázquez [facility] Start: 06-06-2024 End: 06-06-2024 ambulatory JAKE Velázquez [facility] Start: 05-26-2024 End: 05-27-2024 Emergency department patient visit ROGER Eber JONAH [facility] Start: 05-14-2024 End: [facility] Start: 05-11-2024 End: 05-11-2024 ambulatory JAKE Eber [facility] Start: 05-08-2024 End: 05-08-2024 ambulatory JAKE Velázquez [facility] Start: 05-06-2024 End: 05-06-2024 ambulatory JAKE Eber [facility] Start: 05-01-2024 End: 05-01-2024 ambulatory [facility] Start: 04-28-2024 End: 04-28-2024 ambulatory [facility] Start: 02-14-2024 End: 02-14-2024 ambulatory [facility] Start: 2024 End: 2024 ambulatory [facility] Start: 01-18-2024 End: 01-18-2024 ambulatory [facility] Start: 01-03-2024 End: 01-03-2024 ambulatory [facility] Start: 12-21-2023 End: 12-21-2023 ambulatory [facility] Start: 12-18-2023 Orders Only Jake Miramontes DO Work Phone: [facility] Comment on above: 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; Personal history of other diseases of the female genital tract Start: 12-13-2023 End: 12-13-2023 ambulatory [facility] Start: 11-27-2023 End: 11-27-2023 ambulatory BRET MANUEL [facility] Start: 11-16-2023 End: 11-16-2023 ambulatory [facility] Start: 03-13-2023 End: 03-14-[address] JAKE [...] present Start: 04-27-2021 ambulatory Chayo Fofana MD Facility:[facility] Procedures Date Procedure Procedure Detail Performing Clinician Start: 12-10-2024 US OB BPP W NON-STRESS Jake Rojaso DO Work Phone: Start: 12-02-2024 Urnls dip stick/tabl et rgnt [...] micrscp Jake Fe DO Work Phone: Start: 08-15-2024 Assay of thyroid stimulating hormone tsh [place] DO Work Phone: Start: 08-03-2024 URETHRITIS/DISCHARGE PLUS VAGINITIS (HTRX) Katherine VELAZCO Work Phone: Start: 08-03-2024 Urnls dip stick/tabl et rgnt non-auto w/o micrscp Katherine VELAZCO Work Phone: Start: 07-18-2024 Assay of thyroid stimulating hormone tsh Jake Fe DO Work Phone: Start: 07-07-2024 Urnls dip stick/tabl et rgnt non-auto w/o micrscp Jake Fe DO Work Phone: Start: 06-20-2024 Thyrotropin [Units/v olume] in Serum or Plasma [facility] DO Work Phone: Start: 2023 Microscopic observat ion [Identifier] in Cervix by Cyto stain [facility] DO Work Phone: Start: 2023 Cytp cerv/vag auto t hin layer prep mnl screen Jake Miramontes [employer] Work Phone: Start: 07-04-2022 Basic metabolic pane l calcium total Bret PerlaSuppreMol Work Phone: Start: 07-03-2022 Basic metabolic pane l calcium total Bret Velázquez [employer] Work Phone: Start: 07-03-2022 End: 07-03-2022 Laps gstrc rstrictiv px longitudinal gastrectomy Bret Velázquez [employer] Work Phone: Start: 07-03-2022 Urine test visual color cmprsn meths Bret Velázquez [employer] Work Phone: Start: 04-17-2021 Microscopic observat ion [Identifier] in Cervix by Cyto stain Jake Miramontes [employer] Work Phone: Plan of Treatment Date Care Activity Detail Author Start: 01-25-2028 Screening for malign ant neoplasm of cervix [facility] Start: 2026 Screening for malign ant neoplasm of cervix Pap Smear [facility] Start: 11-20-2025 Adult BMI Screening Adult BMI Screen ing [facility] Start: 11-20-2025 Tobacco Screening Tobacco Screening [facility] Start: 06-06-2025 Adult BMI Screening Adult BMI Screen ing [facility] Start: 05-26-2025 Tobacco Screening Tobacco Screening [facility] Start: 12-30-2024 End: 12-30-2024 Patient encounter procedure 12/30/2024 1:10 PM EST Routine [facility] [address] [place] [id number] Jake Miramontes, DO [facility] [place] [address] [facility] Start: 12-23-2024 End: 12-23-2024 Patient encounter procedure 12/23/2024 11:30 AM EST Routine [facility] [address] [place] [address] Jake Miramontes, DO [address] [place] [address] [facility] Start: 12-16-2024 End: 12-16-2024 Patient encounter procedure 12/16/2024 1:00 PM EST Routine [facility] [address] [place] [phone] Jake Miramontes, DO [address] [place] [address] [facility] Start: 12-02-2024 End: 12-02-2025 [...] 11-01-2024 Adult BMI Screening Adult BMI Screen [facility] Start: 10-22-2024 End: 10-22-2024 Patient encounter procedure [...] mellitus screening Expected: 09/29/2024 (Approximate), Expires: 09/29/2025 [facility] Comment on above: Expected: 09/29/2024 (Approximate), Expires: 09/29/2025 Start: 09-29-2024 End: 09-29-2024 Patient encounter procedure [facility] Comment on above: Arrived Start: 09-01-2024 End: 09-01-2024 Patient encounter procedure [facility] Comment on above: Arrived Start: 09-01-2024 End: 09-01-2024 Professional / ancillary services management 09/01/2024 10:30 AM EST Ancillary Procedure [facility] [address] [place] [phone] [facility] Start: 09-01-2024 End: 09-01-2024 Patient encounter procedure 09/01/2024 9:20 AM EST Routine [facility] [address] [facility] [place] [phone] Jake Miramontes, [address] [place] [address] [facility] Start: 08-03-2024 End: 09-03-2024 Alpha fetoprotein, maternal Alpha fetoprotein, maternal Lab Routine Screening, , for anatomic survey Expected: 08/03/2024 (Approximate), Expires: 09/03/2024 [facility] Work Phone: Comment on above: Expected: 08/03/2024 (Approximate), Expires: 09/03/2024 Start: 08-03-2024 End: 08-03-2025 US for US OB ANATOMY SINGLE W US OB CERVICAL LENGTH Imaging Routine Screening, , for anatomic survey Expected: 08/03/2024 (Approximate), Expires: 08/03/2025 [facility] Comment on above: Expected: 08/03/2024 (Approximate), Expires: 08/03/2025 Start: 08-03-2024 End: 08-03-2024 Patient encounter procedure [facility] Comment on above: Arrived Start: 07-13-2024 End: 07-13-2025 Thyroid profile includes TSH FT4 Thyroid profile includes TSH FT4 Lab Routine Hypothyroidism, unspecified Expected: 07/13/2024, Expires: 07/13/2025 [employer] Work Phone: Comment on above: Expected: 07/13/2024 , Expires: 07/13/2025 Start: 07-07-2024 End: 07-07-2024 Patient encounter procedure [facility] Comment on above: Arrived Start: 06-28-2024 Influenza vaccination [facility] Start: 04-17-2024 Screening for malign ant neoplasm of cervix Pap Smear [facility] Start: 12-18-2023 End: 12-18-2024 Antimullerian hormone (AMH) Antimullerian hormone (AMH) Lab Routine Female infertility associated with anovulation Personal history of other diseases of the female genital tract Expected: 12/18/2023, Expires: 12/18/2024 [employer] Work Phone: Comment on above: Expected: 12/18/2023 , Expires: 12/18/2024 Start: 12-06-2023 Tobacco Screening Tobacco Screening [facility] Start: 06-28-2023 Influenza vaccination Influenza Vacc ine [facility] Start: 08-07-2022 End: 08-07-2022 Patient encounter procedure 08/07/2022 Office Visit Bariatrics Dottie Diaz, GLASSWARE SELECTOR - DIRECTOR EPIDEMIOLOGY [address] [facility] [address] [place] [phone] Linda Guadalupe Invasive [facility]ariatric Surg Start: 07-12-2022 End: 07-12-2022 Patient encounter procedure 07/12/2022 Office Visit Bariatrics Bret Manuel, [address] [facility] [address] [place] [address] [facility] Invasive Bariatric Surg Start: 06-28-2022 Influenza vaccination Flu vaccine (# 1) [facility] Start: 2014 Screening for malign ant neoplasm of cervix Pap smear [facility] Start: 01-25-2012 DTaP,Tdap and Td Vaccines (1 - Tdap) DTaP,Tdap and Td Vaccines (1 - Tdap) [facility] Start: 01-25-2012 DTaP/Tdap/Td vaccine (1 - Tdap) DTaP/Tdap/Td vaccine (1 - Tdap) [facility] Start: 2011 Adult BMI Follow Up Plan Adult BMI Follow Up Plan [facility] Start: 2011 Hepatitis C screening Hepatitis C sc reen [facility] Start: 01-25-2008 HIV screening HIV screen [facility] Start: 2005 Depression Screen Depression Screen [facility] Start: 2005 Depression Screening Depression Scre ening [facility] Start: 01-25-2004 DTaP,Tdap and Td Vaccines (6 - Tdap) DTaP,Tdap and Td Vaccines (6 - Tdap) [facility] Start: 1994 Varicella vaccine (1 of 2 - 2-dose childhood series) Varicella vaccine (1 of 2 - 2-dose childhood series) [facility] Start: 1993 COVID-19 Vaccine (#1) COVID-19 Vacci ne (#1) [facility] CHLAMYDIA TRACHOMATI S (GENITO/STI) CHLAMYDIA TRACHOMATIS (GENITO/STI) Lab Routine Exposure to STD Ordered: 08/03/2024 [facility] Comment on above: Ordered: 08/03/2024 Continuous pulse oximetry Pulse oximetry, continuous Respiratory Care Routine Every 4hr until discontinued starting 07/03/2022 [facility] Work Phone: Comment on above: Every 4hr until disc ontinued starting 07/03/2022 Neisseria gonorrhoea e DNA [Presence] in Unspecified specimen by NEGRITO with probe detection Neisseria gonorrhea DNA probe, direct Lab Routine Exposure to STD Ordered: 08/03/2024 [facility] [employer] Comment on above: Ordered: 08/03/2024 Oxygen therapy [[facility]] Initiate Oxygen Therapy Protocol Respiratory Care Routine As Needed until discontinued starting 07/03/2022 [employer] Phone: Comment on above: As Needed until disc ontinued starting 07/03/2022 Spirometry panel Incentive brea metry Respiratory Care Routine Every 2hr while awake until discontinued starting 07/03/2022 [employer] Phone: Comment on above: Every 2hr while awak e until discontinued starting 07/03/2022 SURESWAB(R) ADVANCED VAGINITIS PLUS, TMA SURESWAB(R) ADVANCED VAGINITIS PLUS, TMA Pathology and Cytology Routine Exposure to STD Ordered: 08/03/2024 [facility] [employer] Comment on above: Ordered: 08/03/2024 Surgical Pathology Surgical Path ology Lab Routine Obesity, unspecified classification, unspecified obesity type, unspecified whether serious comorbidity present Gastroesophageal reflux disease, unspecified whether esophagitis present Release Upon Ordering for 1 Occurrences starting 07/03/2022 [employer] Phone: Comment on above: Release Upon Orderin g for 1 Occurrences starting 07/03/2022 End: 07-03-2022 SURGICAL PATHOLOGY REPORT SURGICAL PATHOLOGY REPORT Lab Routine Once for 1 Occurrences starting 07/03/2022 until 07/03/2022 [employer] Phone: Comment on above: Once for 1 Occurrenc es starting 07/03/2022 until 07/03/2022 Thyrotropin [Units/volume] in Serum or Plasma TSH Lab Routine 08/15/2024 9:17 AM EDT [employer] Work Phone: Immunizations Immunization Date Immunization Notes Care Provider Elver knutson 06-06-2024 RHO(D) immune globul in- IV or IM Jake Miramontes DO Work Phone: [facility] [email or web address] 07-11-2011 influenza virus vaccine, unspecified formulation Jake Miramontes DO Work Phone: [facility] Payers Date Payer Category Payer Medicaid [id number] 2022 Medicaid [id number] 2021 Unknown [employer] [id number] 2021-Present [phone] [address] [place] [address] [id number]. [id number] 2021 Unknown 1993 Unknown [id number] 2.16.840.1.745898.3.579.2.196 1993 Unknown [id number] 2.16.840.1.074878.3.579.2.593 1993 Unknown [id number] 2.16.840.1.169500.3.579.2.593 1993 Unknown [id number] 2.16.840.1.568478.3.579.2.593 1993 Unknown [id number] 2.16.840.1.187996.3.579.2.593 1993 Unknown [id number] 2.16.840.1.553345.3.579.2.175 1993 Unknown [id number] 2.16.840.1.681775.3.579.2.1286 1993 Unknown [id number] 2.16.840.1.424171.3.579.2.1286 1993 Unknown [id number] 2.16.840.1.289305.3.579.2.1286 1993 Unknown [id number] 2.16.840.1.502701.3.579.2.1286 1993 Unknown [id number] 2.16.840.1.528041.3.579.2.1285 1993 Unknown [id number] 2.16840.1.615128.3.579.2.1285 1993 Unknown [id number] 2.16840.1.129024.3.579.2.1285 1993 Unknown [id number] 2.16840.1.639225.3.579.2.1285 1993 Unknown [id number] 2.840.1.065146.3.579.2.1285 1993 Unknown [id number] 2.840.1.661267.3.579.2.1285 1993 Unknown [id number] 2.840.1.303707.3.579.2.1285 1993 Unknown [id number] 2.0.1.635378.3.579.2.1285 1993 Unknown [id number] 2.840.1.738384.3.579.2.1285 1993 Unknown [id number] 2.840.1.786704.3.579.2.1285 1993 Unknown [id number] 2.840.1.588771.3.579.2.1285 1993 Unknown [id number] 2840.1.339348.3.579.2.1258 1993 Unknown [id number] 2.840.1.320020.3.579.2.1258 1993 Unknown [id number] 2.840.1.061129.3.579.2.1258 1993 Unknown [id number] 2.16840.1.835527.3.579.2.1258 1993 Unknown [id number] 2.840.1.186662.3.579.2.1258 1993 Unknown [id number] 2.840.1.530244.3.579.2.1259 1993 Unknown [id number] 2.16.840.1.192690.3.579.2.1259 1993 Unknown [id number] 2.16.840.1.944879.3.579.2.1259 1993 Unknown [id number] 2.16.840.1.751936.3.579.2.1259 Social History Date Type Detail Facility Start: 10-26-2017 End: 06-15-2022 Tobacco smoking status WYIS Never smoked tobacco [employer] Start: 10-26-2017 End: 06-15-2022 Tobacco use and exposure Smokeless tobacco non-user [employer] Phone: Start: 07-04-2022 End: 05-26-2024 Alcohol intake Current drinker of alcohol (finding) [employer] Phone: Start: 12-21-2021 History SDOH Alcohol Comment occ [employer] Phone: Start: 1995 Sex Assigned At Not on file [employer] Phone: Start: 06-08-2022 End: 06-18-2022 Exposure to SARS-CoV-2 (event) Not sure [employer] Phone: Start: 07-30-2024 End: 11-04-2024 Alcoholic beverage intake Ex-drinker (finding) [facility] Start: 11-14-2020 End: 06-12-2024 History of Social function [facility] Start: 11-14-2020 End: 06-12-2024 Tobacco use panel [facility] Start: 01-19-2024 Alcohol Comment occasional [facility] Start: 04-20-2024 [facility] Unknown [facility] Start: 08-05-2019 Alcohol [facility] Start: 06-02-2015 Sex Female (finding) [facility] Medical Equipment Procedure Code Equipment Code Equipment Origin al Text Equipment Identifier Dates 1 strip by In Vi tro route Daily Use in the morning prior to breakfast, 1 hour after each meal for a total of 4times daily. [id number] Start: 09-29-2024 End: 11-04-2024 1 each by In Vit ro route Daily Use to check FSBS four times daily [id number] Start: 09-29-2024 End: 09-30-2024 USE 1 EACH TO CH ALESSANDRA GLUCOSE 4 TIMES DAILY [id number] Start: 09-30-2024 End: 11-04-2024 Clinical Notes 02-24-2021 [...] nursing note reviewed. Exam conducted with a production worker present. Vitals: Estimated body mass index is [...] kick counts three times a day. Reviewed [facility] ultrasound with pt in detail. Pt to start NST/BPP. Orders Placed This Encounter Procedures POCT urinalysis dipstick manually resulted Follow Up: Patient is to return to office in 2 week for routine OB appointment. Documented by Tamy Collazo LPN on behalf of: Jake Miramontes DO documented in this encounter [facility] 11-20-2024 History of Present illness Narrative REASON FOR CONSULTATION: Suspected ventriculomegaly HISTORY OF PRESENT ILLNESS: Phillip Avalos is a pleasant 29 y.o. G two P0 010. at 32w4d due on Estimated Date of Delivery: 01/11/25 . Patient was seen today due to the following 1. Maternal gastric sleeve procedure. Patient had robotic gastric sleeve procedure performed at [facility]. Patient has lost weight. Patient became after [...] positions with working out or riding roller [employer] Visual impairment wears glasses PAST OBSTETRICAL HISTORY: OB History 2 Para 0 Term AB 1 Living SAB 1 IAB Ectopic Multiple Live Births SURGICAL HISTORY: Past Surgical History: Procedure Laterality Date CHOLECYSTECTOMY COLONOSCOPY N/A 11/13/2018 Performed by Emanuel Reagan DO at [facility] EGD N/A 11/13/2018 Performed by Emanuel Reagan DO at [facility] LAPAROSCOPIC GASTRIC BANDING ALLERGIES: Allergies Allergen Reactions [...] taking: Reported on 11/01/2023), Disp: , Rfl: csdaebfl-kwas-PI-calcium &mins (THERAGRAN-M) 9 mg iron-400 mcg tablet, [...] and the other consultants, we search on [employer] and all the available care everywhere epic I did review all the imaging studies of the patient available on EMR, ordered by the primary care physician and the other senior energy consultant HABITS: Patient activity no restrictions, diet [...] patient is in complete care of her stripe marker. Patient does not have any future appointment scheduled with us. Thank you for allowing me to participate in Phillip Avalos . If there any questions please do not hesitate to contact us. Sincerely, RONALDO MCNULTY MD Headache/epigastric pain/blurry vision/swelling? No Cramping/contractions? Som Asif Abnormal vaginal discharge? No Spotting/vaginal bleeding? Patient reports spotting earlier in , has since resolved Loss or gush of fluid like your water may have broken? No Do you have cats at home? Yes Do you change the litter box (reason: risk of toxoplasmosis)? N/A Genetic testing done this here or other office? No Have you been seen here at [facility] in a previous ? No Recent ER visits or hospitalizations? No Bring blood sugar log or meter with you today? (Please bring them with you for every visit at [facility]) N/A Flu vaccine (Aug-December)? No Any concerns that you would like me to mention to the provider today? No documented in this encounter [employer] 11-18-2024 History of Present illness Narrative Reason [...] nursing note reviewed. Exam conducted with a production worker present. Vitals: Estimated body mass index is [...] Jake Miramontes DO documented in this encounter [facility] 11-04-2024 History of Present illness Narrative Reason [...] nursing note reviewed. Exam conducted with a production worker present. Vitals: Estimated body mass index is [...] Jake Miramontes DO documented in this encounter [facility] 10-22-2024 History of Present illness Narrative Reason [...] nursing note reviewed. Exam conducted with a production worker present. Vitals: Estimated body mass index is [...] Jake Miramontes DO documented in this encounter [facility] 09-29-2024 History of Present illness Narrative Reason [...] nursing note reviewed. Exam conducted with a production worker present. Vitals: Estimated body mass index is [...] Jake Miramontes DO documented in this encounter [facility] 09-01-2024 History of Present illness Narrative Reason [...] nursing note reviewed. Exam conducted with a production worker present. Vitals: Estimated body mass index is [...] Jake Miramontes DO documented in this encounter [facility] 08-03-2024 History of Present illness Narrative Reason [...] nursing note reviewed. Exam conducted with a production worker present. Vitals: Estimated body mass index is [...] of: MORA Jackson documented in this encounter [facility] 07-07-2024 History of Present illness Narrative Reason [...] nursing note reviewed. Exam conducted with a production worker present. Vitals: Estimated body mass index is [...] or undercooked meat, and stay away from [facility]. Patient has been consulted regarding any further do's and don'ts of . Patient voiced understanding and all questions and concerns were answered. Orders Placed This Encounter Procedures POCT urinalysis dipstick manually resulted Follow Up: Patient is to return in 4 weeks for routine OB appointment. Documented by Tamy Collazo LPN on behalf of: Jake Miramontes DO documented in this encounter [facility] 07-04-2022 History of Present illness Narrative Patient [...] or 07/03/22 documented in this encounter [employer] Phone: 07-04-2022 Hospital Discharge instructions Garrett Corcoran DO - 07/04/2022 8:07 AM EDT Discharge Instructions for Bariatric Surgery You had a Laparoscopic Sleeve Gastrectomy (24217) surgery to treat obesity. Recovery from this [...] scheduled appointment, please call the office at [phone]. Call Your Doctor If Any of the [...] 911 immediately. documented in this encounter [employer] Phone: 02-24-2021 Note Chief Complaint Referral for [...] states she had a colonoscopy performed in [facility] in 2018 as well as [...] are mucoid-like in nature N/V/blood/frequency: Positive nausea Mercer Score: Typically she rates it for although up to 6 with blood MELD Score: Andry IV Score: Previous Labs: She states [place] although I currently do not have the [...] areas. Neurologic: Awake, (more content not included)... [facility] Evaluation note Diagnosis S/P laparoscopic sleeve gastrectomy- Primary Obesity, unspecified classification, unspecified obesity type, unspecified whether serious comorbidity present Gastroesophageal reflux disease, unspecified whether esophagitis present documented in this encounter [facility] Phone: evaluation note* Diagnosis Well woman exam with routine gynecological exam Routine gynecological examination Exposure to STD Need for maternal serum alpha-protein (MSAFP) screening Second trimester state, incidental 17 weeks gestation of Screening, , for anatomic survey Encounter for anatomic survey [facility] Diagnosis 21 weeks gestation of Second trimester state, incidental [facility] Diagnosis Second trimester state, incidental 25 weeks gestation of Diabetes mellitus screening Screening for diabetes mellitus Gestational diabetes mellitus (GDM), antepartum, gestational diabetes method of control unspecified Elevated glucose tolerance test Impaired glucose tolerance test [facility] Diagnosis 13 weeks gestation of Gastroesophageal reflux in [facility]* Diagnosis 28 weeks gestation of Third trimester state, incidental [facility] Diagnosis 30 weeks gestation of Third trimester state, incidental Diabetes mellitus screening Screening for diabetes mellitus [facility] Diagnosis H/O gastric sleeve- Primary [facility] Diagnosis Third trimester state, incidental 32 weeks gestation of [facility] Diagnosis Third trimester state, incidental 34 weeks gestation of Excessive growth affecting management of , antepartum, single or unspecified fetus [facility] Diagnosis Female infertility associated with anovulation Personal history of other diseases of the female genital tract [facility] Diagnosis Hypothyroidism, unspecified [facility] filedocumented in this [facility] System[facility]ructionsNot on filedocumented in this encounter [facility] System[facility]ructionsNot on filedocumented in this encounter [facility] Summary Purpose Family History No Family History Records FoundNo Family History Records FoundNo Family History Records FoundNo Family History Records FoundNo Family History Records FoundNo Family History Records Found Advance Directives Latest Code Status on File Code Status Date Activated Date Inactivated Comments Full Code 07/03/2022 5:43 PM Additional Source Comments INFORMATION SOURCE (unrecogn ized section and content) DATE CREATED AUTHOR 02/28/2021 [facility] DATE CREATED AUTHOR AUTHOR'S ORGANIZ ATION 04/27/2021 [facility] DATE CREATED AUTHOR AUTHOR'S ORGANIZ ATION 03/14/2023 [facility] DATE CREATED AUTHOR AUTHOR'S ORGANIZ ATION 11/29/2023 [facility] DATE CREATED AUTHOR AUTHOR'S ORGANIZ ATION 11/14/2024 [facility] DATE CREATED AUTHOR AUTHOR'S ORGANIZ ATION 12/04/2024 [facility] d[facility] Specialists EPIC Reason for Visit (unrecogniz ed section and content) Specialty Diagnoses / Procedures Referred By Sis parmar Referred To Contact Diagnoses Obesity, unspecified classification, unspecified obesity type, unspecified whether serious comorbidity present Gastroesophageal reflux disease, unspecified whether esophagitis present OBESITY, GERD Procedures ND LAP, MEHUL RESTRICT PROC, LONGITUDINAL GASTRECTOMY XI ROBOTIC LAPAROSCOPIC GASTRECTOMY SLEEVE, EGD, LIVER BIOPSY - GI SCHEDULED Bret Manuel, DO [address] [address] [facility] [address] [place] [address] Referral ID Status Reason Start Date Expiration Date Visits Re quested Visits Authorized [id number] 1 1 Reason Comments Routine Visit Reason [...] (Given - Provider: Robert Cobb APRN - [place]) heparin (porcine) injection 5,000 Units (COMPLETED) 5,000 [...] Comment: per OR)2200 (Given - Provider: Chichi Kwong, SUZANNE) 0607 (Given - Provider: Chichi Kwong RN)1435 (Given - Provider: Donna Trammell, SUZANNE)2200 (Due) ipratropium-albuterol (DUONEB) nebulizer solution 1 ampule [...] Kwong RN - Reason: IV Fluid Infusing) 09 (Not Given - Provider: Donna Trammell RN [...] Ruiz CRNA)1630 (Anesthesia Volume Adjustment - Provider: Robert U Jordyn, GLASSWARE SELECTOR - [place]) 1354 (Stopped - Provider: Donna Trammell RN) [...]
Care Teams (unrecognized sec tion and content) Sales Service Executive Relationship Specialty Start Date End Date Jake Miramontes MD [address] [place] [address] PCP - General Obstetrics & Gynecology 06/18/22 Sales Service Executive Relationship Specialty Start Date End Date Jake Miramontes DO [address] [place] [address] [place] [address] PCP - General Obstetrics & Gynecology 06/06/24 Sales Service Executive Relationship Specialty Start Date End Date Karina Lopez DO [address], [place] [id number] PCP - General Family Medicine 11/01/23 Sales Service Executive Relationship Specialty Start Date End Date Jake Miramontes DO [address] [place] [address] [place] [address] PCP - General Obstetrics & Gynecology 06/06/24 [...] BE BASED ON THE PRIMARY CLINICAL RECORDS. [facility] [employer] [facility] provides no warranty or guarantee of the accuracy or completeness of information in this document.
[2024-12-16 11:24] VITALS: TEMP 36.4
[2024-12-16 11:25] VITALS: BP 115/70; PULSE 76
== END 2024-12-16 11:58 | disposition home or self-care (01) ==
LOC: US 01:11 → FBC 11:06
PROVIDERS: Visit Provider Obstetrics & Gynecology
DX: O36.63X0 Maternal care for excessive fetal growth, third trimester, not applicable or unspecified (principal); Z3A.36 36 weeks gestation of pregnancy
CPT/HCPCS: 76818; 87081

== ENCOUNTER 2024-12-16 21:29 | Outpatient (REF) | payer MEDICAID, SELFPAY ==
--- OUTSIDE RECORDS SUMMARY | 2024-12-16 21:33 | XMS_ITS | CCD ---
Author Organization [facility] Care Team Providers Care Sql Programmer Name Role Phone Ct LEAL, Chayo Mina [...] REQUEST, NONE LISTED Primary Care Unavaila ble LINCOLN, DR NATALIE Yung Consulting Unavailable FE ., [...] Unavailable FE, JAKE R Referring Unavailable FE, JAEK R Primary Care Unavailable ROGER MCKENZIE Attending [...] Fe DO, Jake R Primary Care Provider [phone] FE, JAKE Attending Unavailable FE, JAKE Attending Unavailable FE, JAKE Attending Unavailable KATHERNIE DE LA TORRE Attending Unavailable FE, JAKE Attending Unavailable FE, JAKE Attending Unavailable FE, JAKE Attending Unavailable FE, JAKE Attending Unavailable Rumschlag DO, Karina K Primary Care Provider [phone] Allergies Allergy Classification Reported Allergen(s) Allergy Type Date of Onset Reaction(s) Facility (5 sources) Latex; Translations: [LATEX] Propensity to adverse reactions to drug 09-22-[address] [facility] (20 sources) Sulfamethoxazole / Trimethoprim; Translations: [SULFAMETHOXAZOLE-T RIMETHOPRIM] Drug Allergy 07-02-20 17 [facility] Work Phone: (20 sources) Latex Propensity [...] tablet (500 mg total) before bedtime. Active triccqmp-sxst-QD-calcium &mins (THERAGRAN-M) 9 mg iron-400 mcg tablet (3 sources) kufhtuuv-tqij-CH -calcium &mins (THERAGRAN-M) 9 mg iron-400 mcg tablet Take 1 tablet by mouth in the morning. Active gnbbpnpr-hqqs-GW -calcium &mins (THERAGRAN-M) 9 mg iron-400 mcg [...] US OB BPP W NON-STRESS on 12-10-2024 [place] [address] Ultrasound Report Signed Patient: PHILLIP AVALOS MR#: [id number] : 1995 Acct:[id number] Age/Sex: 29 / F ADM Date: 12/10/24 Loc: [facility] 250-[address]: Jake Miramontes D.O. Ordering Physician: Jake Miramontes D.O. Date of Service: 12/10/24 Procedure(s): US OB BPP w non-stress Accession Number(s): [id number] cc: Jake Miramontes D.O.; Physician,Non-Staff M[place] [address] Patient Name: PHILLIP AVALOS MRN: [id number] date: 1995 Sex: F Assigned Patient Location: [facility] Current Patient Location: [facility] Accession/Order Number: [id number] Exam Date: 12/10/2024 10:46 Report Date: 12/10/2024 [...] Dictated By: Maribell Estevez M.D. Signed By: 12/10/248 DD/ 24 TD/TT: Legal Editor: [facility] Radiology, Radiologist, MD - 12/10/2024 [place] [address] Ultrasound Report Signed Patient: PHILLIP AVALOS MR#: [id number] : 1995 Acct:[id number] Age/Sex: 29 / F ADM Date: 12/10/24 Loc: [facility] 250-[address]: Jake Miramontes D.O. Ordering Physician: Jake Miramontes D.O. Date of Service: 12/10/24 Procedure(s): US OB BPP w non-stress Accession Number(s): [id number] cc: Jake Miramontes D.O.; Physician,Non-Staff Patti [place] [address] Patient Name: PHILLIP AVALOS MRN: [facility]:[id number] date: 1995 Sex: F Assigned Patient Location: [facility] Current Patient Location: [facility] Accession/Order Number: [id number] Exam Date: 12/10/2024 10:46 Report Date: 12/10/2024 [...] Signed By: 12/10/24 1128 DD/ 24 TD/TT: Legal Editor: [facility] Radiology Study observation (narrative) [facility] US OB BPP W NON-STRESS Ordered By: Radiologist Radiology on 12-10-2024 [facility] Work Phone: Urinalysis macro (dipstick) panel (U)on 12-02-2024 Bilirubin, UA Negative Negative - 4(70) +++ mg/dL [facility] Blood, UA Negative Negative - 50 Nathanael/mcL [facility] Clarity, UA Clear [facility] Color, UA Yellow [facility] Glucose, UA Negative Negative - 1999(110) ++++ mg/dL [facility] Interpretation and review of laboratory results Abnormal [facility] Ketones, UA Negative Negative - 160(16) ++++ mg/dL [facility] Leukocytes, UA Trace Negative - 500+++ Annie/mcL [facility] Nitrite, UA Negative Negative - Positive [facility] pH, UA 7 5 - 9 [facility] Protein, UA Trace Negative - 1999(20) ++++ mg/dL [facility] Spec Grav, UA 1.025 1 - 1.03 [facility] Urobilinogen, UA 1.0 0.2 - 12 mg/dL [facility] Urinalysis macro (dipstick) panel (U)on 11-18-2024 Bilirubin, UA Negative Negative - 4(70) +++ mg/dL [facility] Blood, UA Negative Negative - 50 Nathanael/mcL [facility] Clarity, UA Clear [facility] Color, UA Yellow [facility] Glucose, UA Negative Negative - 1999(110) ++++ mg/dL [facility] Interpretation and review of laboratory results Abnormal [facility] Ketones, UA Negative Negative - 160(16) ++++ mg/dL [facility] Leukocytes, UA Trace Negative - 500+++ Annie/mcL [facility] Nitrite, UA Negative Negative - Positive [facility] pH, UA 6.5 5 - 9 [facility] Protein, UA Negative Negative - 1999(20) ++++ mg/dL [facility] Spec Grav, UA 1.025 1 - 1.03 [facility] Urobilinogen, UA 0.2 0.2 - 12 mg/dL [facility] CBC AND AUTO DIFFon 11-11-19 25 ABSOLUTE BASOPHIL 0.0 X10E9/L Normal 0.0-0.2 [facility] Comment on above: Performed By: #### 3 8476-8 #### [facility] ([id number]) [address] [place] [address] 75628 #### 2839-9 #### [facility] ([id number]) [address], [address] [place] [address] ABSOLUTE NEUTROPHIL 7.2 X10E9/L High 1.5-6.6 [facility] Comment on above: Performed By: #### 3 8476-8 #### [facility] ([id number]) [address] [place] [address] 40782 #### 2839-9 #### [facility] ([id number]) [address], [address] [place] [address] Basophils/100 WBC (Bld) 0.3 % Normal [facility] Comment on above: Performed By: #### 3 8476-8 #### [facility] ([id number]) [address] [place] [address] 55470 #### 2839-9 #### [facility] ([id number]) [address], [address] [place] [address] Eosinophils (Bld) [#/Vol] 0.3 10*3/uL Normal 0.0-0.4 [facility] Comment on above: Performed By: #### 3 8476-8 #### [facility] ([id number]) [address] [place] [address] 02453 #### 2839-9 #### [facility] ([id number]) [address], [address] [place] [address] Eosinophils/100 WBC (Bld) 2.9 % Normal [facility] Comment on above: Performed By: #### 3 8476-8 #### [facility] ([id number]) [address] [place] [address] 31339 #### 2839-9 #### [facility] ([id number]) [address], [address] [place] [address] Erythrocyte distribution width (RBC) [Ratio] 12.5 % Normal 11.5-15.0 [facility] Comment on above: Performed By: #### 3 8476-8 #### [facility] ([id number]) [address] [place] [address] 14692 #### 2839-9 #### [facility] ([id number]) [address], [address] [place] [address] Hematocrit (Bld) [Volume fraction] 36.8 % Normal 35-47 [facility] Comment on above: Performed By: #### 3 8476-8 #### [facility] ([id number]) [address] [place] [address] 18261 #### 2839-9 #### [facility] ([id number]) [address], [address] [place] [address] Hemoglobin (Bld) [Mass/Vol] 12.7 g/dL Normal 11.7-15.5 [facility] Comment on above: Performed By: #### 3 8476-8 #### [facility] ([id number]) [address] [place] [address] 32734 #### 2839-9 #### [facility] ([id number]) [address], [address] [place] [address] Lymphocytes (Bld) [#/Vol] 1.9 10*3/uL Normal 1.0-3.5 [facility] Comment on above: Performed By: #### 3 8476-8 #### [facility] ([id number]) [address] [place] [address] 67281 #### 2839-9 #### [facility] ([id number]) [address], [address] [place] [address] Lymphocytes/100 WBC (Bld) 18.7 % Normal [facility] Comment on above: Performed By: #### 3 8476-8 #### [facility] ([id number]) [address] [place] [address] 93214 #### 2839-9 #### [facility] ([id number]) [address], [address] [place] [address] MCH (RBC) [Entitic mass] 32.5 pg Normal 27-34 [facility] Comment on above: Performed By: #### 3 8476-8 #### [facility] ([id number]) [address] [place] [address] 46690 #### 2839-9 #### [facility] ([id number]) [address], [address] [place] [address] MCHC (RBC) [Mass/Vol] 34.5 g/dL Normal 32-36 [facility] Comment on above: Performed By: #### 3 8476-8 #### [facility] ([id number]) [address] [place] [address] 77458 #### 2839-9 #### [facility] ([id number]) [address], [address] [place] [address] MCV (RBC) [Entitic vol] 94 fL Normal 80-100 [facility] Comment on above: Performed By: #### 3 8476-8 #### [facility] ([id number]) [address] [place] [address] [place] [address] #### 2839-9 #### [facility] ([id number]) [address], [address] [place] [address] Monocytes (Bld) [#/Vol] 0.6 10*3/uL Normal 0-0.9 [facility] Comment on above: Performed By: #### 3 8476-8 #### [facility] ([id number]) [address] [place] [address] 90388 #### 2839-9 #### [facility] ([id number]) [address], [address] [place] [address] Monocytes/100 WBC (Bld) 6.4 % Normal [facility] Comment on above: Performed By: #### 3 8476-8 #### [facility] ([id number]) [address] [place] [address] 65382 #### 2839-9 #### [facility] ([id number]) [address], [address] [place] [address] Neutrophils/100 WBC (Bld) 71.7 % Normal [facility] Comment on above: Performed By: #### 3 8476-8 #### [facility] ([id number]) [address] [place] [address] 17539 #### 2839-9 #### [facility] ([id number]) [address], [address] [place] [address] Platelet mean volume (Bld) [Entitic vol] 7.3 fL Normal 7-12 [facility] Comment on above: Performed By: #### 3 8476-8 #### [facility] ([id number]) [address] [place] [address] 05266 #### 2839-9 #### [facility] ([id number]) [address] [place] [address] Platelets (Bld) [#/Vol] 218 10*3/uL Normal 150-450 [facility] Comment on above: Performed By: #### 3 8476-8 #### [facility] ([id number]) [address] [place] [address] 95680 #### 2839-9 #### [facility] ([id number]) [address], [address] [place] [address] RBC COUNT 3.89 X10E12/L Normal 3.80-5.20 [facility] Comment on above: Performed By: #### 3 8476-8 #### [facility] ([id number]) [address] [place] [address] 46469 #### 2839-9 #### [facility] ([id number]) [address], [address] [place] [address] WBC (Bld) [#/Vol] 10.1 10*3/uL Normal 4.0-11.0 [facility] Comment on above: Performed By: #### 3 8476-8 #### [facility] ([id number]) [address] [place] [address] 77533 #### 2839-9 #### [facility] ([id number]) [address], [address] [place] [address] CBC W Auto Differential pane l (Bld)on 11-11-2024 ABSOLUTE BASOPHIL 0 [facility] Comment on above: PERFORMED AT [facility] [address],[place] [address] Basophils/100 WBC (Bld) 0.3 % [facility] Eosinophils (Bld) [#/Vol] 0.3 10*3/uL [facility] Eosinophils/100 WBC (Bld) 2.9 % [facility] Erythrocyte distribution width (RBC) [Ratio] 12.5 % 11.5 - 15.0 % [facility] Hematocrit (Bld) [Volume fraction] 36.8 % 35 - 47 % [facility] Hemoglobin (Bld) [Mass/Vol] 12.7 g/dL 11.7 - 15.5 g/dL [facility] Interpretation and review of laboratory results Abnormal [facility] Lymphocytes (Bld) [#/Vol] 1.9 10*3/uL [facility] Lymphocytes/100 WBC (Bld) 18.7 % [facility] MCH (RBC) [Entitic mass] 32.5 pg 27 - 34 pg [facility] MCHC (RBC) [Mass/Vol] 34.5 g/dL 32 - 36 g/dL [facility] MCV (RBC) [Entitic vol] 94 fL 80 - 100 fL [facility] Monocytes (Bld) [#/Vol] 0.6 10*3/uL [facility] Monocytes/100 WBC (Bld) 6.4 % [facility] Neutrophils (Bld) [#/Vol] 7.2 10*3/uL High [facility] Neutrophils/100 WBC (Bld) 71.7 % [facility] Platelet mean volume (Bld) [Entitic vol] 7.3 fL 7 - 12 fL [facility] Platelets (Bld) [#/Vol] 218 10*3/uL [facility] RBC (Bld) [#/Vol] 3.89 10*6/uL [facility] WBC corrected for nucl RBC Auto (Bld) [#/Vol] 10.1 [facility] Urinalysis macro (dipstick) panel (U)on 11-04-2024 Bilirubin, UA Negative Negative - 4(70) +++ mg/dL [facility] Blood, UA Negative Negative - 50 Nathnaael/mcL [facility] Clarity, UA Clear [facility] Color, UA Yellow [facility] Glucose, UA Negative Negative - 1999(110) ++++ mg/dL [facility] Interpretation and review of laboratory results Abnormal [facility] Ketones, UA Negative Negative - 160(16) ++++ mg/dL [facility] Leukocytes, UA Trace Negative - 500+++ Annie/mcL [facility] Nitrite, UA Negative Negative - Positive [facility] pH, UA 6 5 - 9 [facility] Protein, UA Positive Negative - 1999(20) ++++ mg/dL [facility] Comment on above: trace Spec Grav, UA 1.03 1 - 1.03 [facility] Urobilinogen, UA 0.2 0.2 - 12 mg/dL [facility] Urinalysis macro (dipstick) panel (U)on 10-22-2024 Bilirubin, UA Negative Negative - 4(70) +++ mg/dL [facility] Blood, UA Negative Negative - 50 Nathanael/mcL [facility] Clarity, UA Clear [facility] Color, UA Yellow [facility] Glucose, UA Negative Negative - 1999(110) ++++ mg/dL [facility] Interpretation and review of laboratory results Abnormal [facility] Ketones, UA Negative Negative - 160(16) ++++ mg/dL [facility] Leukocytes, UA Positive Negative - 500+++ Annie/mcL [facility] Comment on above: small Nitrite, UA Negative Negative - Positive [facility] pH, UA 6.5 5 - 9 [facility] Protein, UA Negative Negative - 1999(20) ++++ mg/dL [facility] Spec Grav, UA 1.025 1 - 1.03 [facility] Urobilinogen, UA 1.0 0.2 - 12 mg/dL [facility] Urinalysis macro (dipstick) panel (U)on 09-29-2024 Bilirubin, UA Negative Negative - 4(70) +++ mg/dL [facility] Blood, UA Negative Negative - 50 Nathanael/mcL [facility] Clarity, UA Clear [facility] Color, UA Yellow [facility] Glucose, UA Negative Negative - 1999(110) ++++ mg/dL [facility] Interpretation and review of laboratory results Normal [facility] Ketones, UA Negative Negative - 160(16) ++++ mg/dL [facility] Leukocytes, UA Negative Negative - 500+++ Annie/mcL [facility] Nitrite, UA Negative Negative - Positive [facility] pH, UA 7 5 - 9 [facility] Protein, UA Negative Negative - 1999(20) ++++ mg/dL [facility] Spec Grav, UA 1.025 1 - 1.03 [facility] Urobilinogen, UA 1.0 0.2 - 12 mg/dL [facility] Urinalysis macro (dipstick) panel (U)on 09-01-2024 Bilirubin, UA Negative Negative - 4(70) +++ mg/dL [facility] Blood, UA Negative Negative - 50 Nathanael/mcL [facility] Clarity, UA Clear [facility] Color, UA Yellow [facility] Glucose, UA Negative Negative - 2000(110) ++++ mg/dL [facility] Interpretation and review of laboratory results Abnormal [facility] Ketones, UA Negative Negative - 160(16) ++++ mg/dL [facility] Leukocytes, UA Trace Negative - 500+++ Annie/mcL [facility] Nitrite, UA Negative Negative - Positive [facility] pH, UA 6 5 - 9 [facility] Protein, UA Negative Negative - 2000(20) ++++ mg/dL [facility] Spec Grav, UA 1.03 1 - 1.03 [facility] Urobilinogen, UA 0.2 0.2 - 12 mg/dL [facility] CBC AND AUTO DIFFon 08-26-20 24 ABSOLUTE BASOPHIL 0.0 X10E9/L Normal 0.0-0.2 [facility] Comment on above: Performed By: #### 3 8476-8 #### [facility] ([id number]) [address] [place] [address] 58542 #### 2839-9 #### [facility] ([id number]) [address] [place] [address], [address] [place] [address] ABSOLUTE NEUTROPHIL 5.8 X10E9/L Normal 1.5-6.6 [facility] Comment on above: Performed By: #### 3 8476-8 #### [facility] ([id number]) [address] [place] [address] 29847 #### 2839-9 #### [facility] ([id number]) [address] [place] [address] Basophils/100 WBC (Bld) 0.2 % Normal [facility] Comment on above: Performed By: #### 3 8476-8 #### [facility] ([id number]) [address] [place] [address] 82516 #### 2839-9 #### [facility] ([id number]) [address], [address] [place] [address] Eosinophils (Bld) [#/Vol] 0.2 10*3/uL Normal 0.0-0.4 [facility] Comment on above: Performed By: #### 3 8476-8 #### [facility] ([id number]) [address] [place] [address] 12274 #### 2839-9 #### [facility] ([id number]) [address], [address] [place] [address] Eosinophils/100 WBC (Bld) 2.9 % Normal [facility] Comment on above: Performed By: #### 3 8476-8 #### [facility] ([id number]) [address] [place] [address] 82080 #### 2839-9 #### [facility] ([id number]) [address], [address] [place] [address] Erythrocyte distribution width (RBC) [Ratio] 13.0 % Normal 11.5-15.0 [facility] Comment on above: Performed By: #### 3 8476-8 #### [facility] ([id number]) [address] [place] [address] 36659 #### 2839-9 #### [facility] ([id number]) [address], [address] [place] [address] Hematocrit (Bld) [Volume fraction] 31.5 % Low 35-47 [facility] Comment on above: Performed By: #### 3 8476-8 #### [facility] ([id number]) [address] [place] [address] 64429 #### 2839-9 #### [facility] ([id number]) [address], [address] [place] [address] Hemoglobin (Bld) [Mass/Vol] 10.8 g/dL Low 11.7-15.5 [facility] Comment on above: Performed By: #### 3 8476-8 #### [facility] ([id number]) [address] [place] [address] 26269 #### 2839-9 #### [facility] ([id number]) [address], [address] [place] [address] Lymphocytes (Bld) [#/Vol] 1.3 10*3/uL Normal 1.0-3.5 [facility] Comment on above: Performed By: #### 3 8476-8 #### [facility] ([id number]) [address] [place] [address] 46548 #### 2839-9 #### [facility] ([id number]) [address], [address] [place] [address] Lymphocytes/100 WBC (Bld) 16.5 % Normal [facility] Comment on above: Performed By: #### 3 8476-8 #### [facility] ([id number]) [address] [place] [address] 95321 #### 2839-9 #### [facility] ([id number]) [address], [address] [place] [address] MCH (RBC) [Entitic mass] 32.6 pg Normal 27-34 [facility] Comment on above: Performed By: #### 3 8476-8 #### [facility] ([id number]) [address] [place] [address] 59111 #### 2839-9 #### [facility] ([id number]) [address], [address] [place] [address] MCHC (RBC) [Mass/Vol] 34.4 g/dL Normal 32-36 [facility] Comment on above: Performed By: #### 3 8476-8 #### [facility] ([id number]) [address] [place] [address] 24512 #### 2839-9 #### [facility] ([id number]) [address] [place] [address] MCV (RBC) [Entitic vol] 95 fL Normal 80-100 [facility] Comment on above: Performed By: #### 3 8476-8 #### [facility] ([id number]) [address] [place] [address] 64297 #### 2839-9 #### [facility] ([id number]) [address], [address] [place] [address] Monocytes (Bld) [#/Vol] 0.6 10*3/uL Normal 0-0.9 [facility] Comment on above: Performed By: #### 3 8476-8 #### [facility] ([id number]) [address] [place] [address] 62597 #### 2839-9 #### [facility] ([id number]) [address], [address] [place] [address] Monocytes/100 WBC (Bld) 8.0 % Normal [facility] Comment on above: Performed By: #### 3 8476-8 #### [facility] ([id number]) [address] [place] [address] 37719 #### 2839-9 #### [facility] ([id number]) [address], [address] [place] [address] Neutrophils/100 WBC (Bld) 72.4 % Normal [facility] Comment on above: Performed By: #### 3 8476-8 #### [facility] ([id number]) [address] [place] [address] [place] [address] #### 2839-9 #### [facility] ([id number]) [address], [address] [place] [address] Platelet mean volume (Bld) [Entitic vol] 6.7 fL Low 7-12 [facility] Comment on above: Performed By: #### 3 8476-8 #### [facility] ([id number]) [address] [place] [address] 12140 #### 2839-9 #### [facility] ([id number]) [address], [address] [place] [address] Platelets (Bld) [#/Vol] 188 10*3/uL Normal 150-450 [facility] Comment on above: Performed By: #### 3 8476-8 #### [facility] ([id number]) [address] [place] [address] 24215 #### 2839-9 #### [facility] ([id number]) [address], [address] [place] [address] RBC COUNT 3.33 X10E12/L Low 3.80-5.20 [facility] Comment on above: Performed By: #### 3 8476-8 #### [facility] ([id number]) [address] [place] [address] 71138 #### 2839-9 #### [facility] ([id number]) [address], [address] [place] [address] WBC (Bld) [#/Vol] 8.0 10*3/uL Normal 4.0-11.0 [facility] Comment on above: Performed By: #### 3 8476-8 #### [facility] ([id number]) [address] [place] [id number] #### 2839-9 #### [facility] ([id number]) [address], [address] [place] [address] COMPREHENSIVE METABOLIC PANE Augustin 08-26-2024 Albumin [Mass/Vol] 2.9 g/dL Low 3.2-5.3 [facility] Comment on above: Performed By: #### 3 8476-8 #### [facility] ([id number]) [address] [place] [address] #### 2839-9 #### [facility] ([id number]) [address], [address] [place] [address] ALP [Catalytic activity/Vol] 34 U/L Low 39-130 [facility] Comment on above: Performed By: #### 3 8476-8 #### [facility] ([id number]) [address] [place] [address] 52043 #### 2839-9 #### [facility] ([id number]) [address], [address] [place] [address] ALT [Catalytic activity/Vol] 45 U/L High 0-31 [facility] Comment on above: Performed By: #### 3 8476-8 #### [facility] ([id number]) [address] [place] [address] 28961 #### 2839-9 #### [facility] ([id number]) [address], [address] [place] [address] Anion gap [Moles/Vol] 5 mmol/L Normal 5-15 [facility] Comment on above: Performed By: #### 3 8476-8 #### [facility] ([id number]) [address] [place] [address] 85269 #### 2839-9 #### [facility] ([id number]) [address], [address] [place] [address] AST [Catalytic activity/Vol] 44 U/L High 0-41 [facility] Comment on above: Performed By: #### 3 8476-8 #### [facility] ([id number]) [address] [place] [address] 55337 #### 2839-9 #### [facility] ([id number]) [address], [address] [place] [address] Bilirubin [Mass/Vol] 0.4 mg/dL Normal 0.3-1.2 [facility] Comment on above: Performed By: #### 3 8476-8 #### [facility] ([id number]) [address] [place] [address] 53790 #### 2839-9 #### [facility] ([id number]) [address], [address] [place] [address] Calcium [Mass/Vol] 8.4 mg/dL Low 8.5-10.5 [facility] Comment on above: Performed By: #### 3 8476-8 #### [facility] ([id number]) [address] [place] [address] 57352 #### 2839-9 #### [facility] ([id number]) [address], [address] [place] [address] Chloride [Moles/Vol] 105 mmol/L Normal 98-109 [facility] Comment on above: Performed By: #### 3 8476-8 #### [facility] ([id number]) [address] [place] [address] 89623 #### 2839-9 #### [facility] ([id number]) [address] [place] [address] CO2 [Moles/Vol] 23 mmol/L Normal 22-32 [facility] Comment on above: Performed By: #### 3 8476-8 #### [facility] ([id number]) [address] [place] [address] 85176 #### 2839-9 #### [facility] ([id number]) [address] [facility], [address] [place] [address] Creatinine [Mass/Vol] 0.68 mg/dL Normal 0.40-1.00 [facility] Comment on above: Result Comment: METH OD TRACEABLE TO IDMS STANDARD Performed By: #### 3 8476-8 #### [facility] ([id number]) [address] [place] [address] 71359 #### 2839-9 #### [facility] ([id number]) [address] [facility], [address] [place] [address] eGFR (CKD-EPI) NON-RACE DEPENDENT >90 Normal >59 [facility] Comment on above: Result Comment: Reported eGFR is based on the CKD-EPI 2020 equation that does not use a race coefficient. Performed By: #### 3 8476-8 #### [facility] ([id number]) [address] [place] [address] 32433 #### 2839-9 #### [facility] ([id number]) [address] [facility], [address] [place] [address] Glucose [Mass/Vol] 80 mg/dL Normal 65-99 [facility] Comment on above: Performed By: #### 3 8476-8 #### [facility] ([id number]) [address] [place] [address] 37417 #### 2839-9 #### [facility] ([id number]) [address] [facility], [address] [place] [address] Potassium [Moles/Vol] 3.9 mmol/L Normal 3.5-5.0 [facility] Comment on above: Performed By: #### 3 8476-8 #### [facility] ([id number]) [address] [place] [address] 47297 #### 2839-9 #### [facility] ([id number]) [address], [address] [place] [address] Protein [Mass/Vol] 5.8 g/dL Low 6.0-8.0 [facility] Comment on above: Performed By: #### 3 8476-8 #### [facility] ([id number]) [address] [place] [address] 45059 #### 2839-9 #### [facility] ([id number]) [address], [address] [place] [address] Sodium [Moles/Vol] 133 mmol/L Low 134-146 [facility] Comment on above: Performed By: #### 3 8476-8 #### [facility] ([id number]) [address] [place] [address] 18664 #### 2839-9 #### [facility] ([id number]) [address], [address] [place] [address] Urea nitrogen [Mass/Vol] 15 mg/dL Normal 5-23 [facility] Comment on above: Performed By: #### 3 8476-8 #### [facility] ([id number]) [address] [place] [address] 76182 #### 2839-9 #### [facility] ([id number]) [address], [address] [place] [address] LIPASEon 08-26-2024 Lipase [Catalytic activity/Vol] 36 U/L Normal 17-40 [facility] Comment on above: Performed By: #### 3 8476-8 #### [facility] ([id number]) [address] [place] [address] 26014 #### 2839-9 #### [facility] ([id number]) [address] [facility], [address] [place] [address] MAGNESIUMon 08-26-2024 Magnesium [Mass/Vol] 1.8 mg/dL Normal 1.8-2.6 [facility] Comment on above: Performed By: #### 3 8476-8 #### [facility] ([id number]) [address] [place] [address] 35011 #### 2839-9 #### [facility] ([id number]) [address] [facility], [address] [place] [address] Troponin I.cardiac High sens itivity method [Mass/Vol]on 08-26-2024 TROPONIN I, HIGH SENSITIVITY <2 Normal <16 [facility] Comment on above: Performed By: #### 3 8476-8 #### [facility] ([id number]) [address] [place] [address] 22089 #### 2839-9 #### [facility] ([id number]) [facility] [facility], [address] [place] [address] THYROID PROFILEon 08-15-2024 Free T4 [Mass/Vol] 0.89 ng/dL Normal 0.61-1.60 [facility] Comment on above: Performed By: #### 3 8476-8 #### [facility] ([id number]) [address] [place] [address] 23016 #### 2839-9 #### [facility] ([id number]) [address] [facility], [address] [place] [address] TSH 3.03 uIU/mL Normal 0.49-4.67 [facility] Comment on above: Performed By: #### 3 8476-8 #### [facility] ([id number]) [address] [place] [address] 68628 #### 2839-9 #### [facility] ([id number]) [address] [facility], [address] [place] [address] URETHRITIS/DISCHARGE PLUS VA GINITIS (HTRX)on 08-04-2024 ATOPOBIUM VAGINAE 0.000 [facility] ATOPOBIUM VAGINAE Not detected [facility] BVAB 2,3 (BACTERIAL VAGINOSIS ASSOCIATED BACTERIA 2, 3); MOBILUNCUS SPP 0.000 [facility] BVAB 2,3 (BACTERIAL VAGINOSIS ASSOCIATED BACTERIA 2, 3); MOBILUNCUS SPP Not detected [facility] RAZIA ALBICANS, PARAPSILOSIS, TROPICALIS 0.000 [facility] RAZIA ALBICANS, PARAPSILOSIS, TROPICALIS Not detected [facility] RAZIA GLABRATA 0.000 [facility] RAZIA GLABRATA Not detected [facility] RAZIA KRUSEI 0.000 [facility] RAZIA KRUSEI Not detected [facility] CHLAMYDIA TRACHOMATIS 0.000 [facility] CHLAMYDIA TRACHOMATIS Not detected N [facility] GARDNERELLA VAGINALIS 0.000 [facility] GARDNERELLA VAGINALIS Not detected N [facility] MEGASPHAERA (TYPES 1, 2) 0.000 [facility] MEGASPHAERA (TYPES 1, 2) Not detected [facility] MYCOPLASMA GENITALIUM 0.000 [facility] MYCOPLASMA GENITALIUM Not detected N [facility] NEISSERIA GONORRHOEAE 0.000 [facility] NEISSERIA GONORRHOEAE Not detected N [facility] TRICHOMONAS VAGINALIS 0.000 [facility] TRICHOMONAS VAGINALIS Not detected N [facility] Urinalysis macro (dipstick) panel (U)on 08-03-2024 Bilirubin, UA Negative Negative - 4(70) +++ mg/dL [facility] Blood, UA Negative Negative - 50 Nathanael/mcL [facility] Clarity, UA Clear [facility] Color, UA Yellow [facility] Glucose, UA Negative Negative - 1999(110) ++++ mg/dL [facility] Interpretation and review of laboratory results Normal [facility] Ketones, UA Negative Negative - 160(16) ++++ mg/dL [facility] Leukocytes, UA Negative Negative - 500+++ Annie/mcL [facility] Nitrite, UA Negative Negative - Positive [facility] pH, UA 7.0 5 - 9 [facility] Protein, UA Negative Negative - 1999(20) ++++ mg/dL [facility] Spec Grav, UA 1.020 1 - 1.03 [facility] Urobilinogen, UA 1.0 0.2 - 12 mg/dL [facility] THYROID PROFILEon 07-18-2024 Free T4 [Mass/Vol] 0.80 ng/dL Normal 0.61-1.60 [facility] Comment on above: Performed By: #### 3 8476-8 #### [facility] ([id number]) [address] [place] [address] 36150 #### 2839-9 #### [facility] ([id number]) [address] [facility], [address] [place] [address] TSH 3.22 uIU/mL Normal 0.49-4.67 [facility] Comment on above: Performed By: #### 3 8476-8 #### [facility] ([id number]) [address] [place] [address] 42845 #### 2839-9 #### [facility] ([id number]) [address] [facility], [address] [place] [address] TSHon 07-18-2024 Free T4 [Mass/Vol] 0.80 ng/dL 0.61 - 1. 60 ng/dL [facility] Comment on above: PERFORMED AT [facility] [address],[place] [address] TSH Qn 3.22 m[IU]/L [facility] Urinalysis macro (dipstick) panel (U)on 07-07-2024 Bilirubin, UA Negative Negative - 4(70) +++ mg/dL [facility] Blood, UA Negative Negative - 50 Nathanael/mcL [facility] Clarity, UA Clear [facility] Color, UA Yellow [facility] Glucose, UA Negative Negative - 2000(110) ++++ mg/dL [facility] Interpretation and review of laboratory results Normal [facility] Ketones, UA Negative Negative - 160(16) ++++ mg/dL [facility] Leukocytes, UA Trace Negative - 500+++ Annie/mcL [facility] Nitrite, UA Negative Negative - Positive [facility] pH, UA 7.0 5 - 9 [facility] Protein, UA Negative Negative - 1999(20) ++++ mg/dL [facility] Spec Grav, UA 1.025 1 - 1.03 [facility] Urobilinogen, UA 0.2 0.2 - 12 mg/dL [facility]on 06-20-2024 TSH Qn 2.32 m[IU]/L [facility] Comment on above: PERFORMED AT [address], [place] [address] [facility] TSH Qnon 06-20-2024 TSH 2.32 uIU/mL Normal 0.49-4.67 [facility] Comment on above: Performed By: #### 3 8476-8 #### [facility] ([id number]) [address] [place] [address] 93692 #### 2839-9 #### [facility] ([id number]) [address] [place] [address], [address] [address] CBC AND AUTO DIFFon 06-06-20 ABSOLUTE BASOPHIL 0.0 X10E9/L Normal 0.0-0.2 [facility] Comment on above: Performed By: #### 3 8476-8 #### [facility] ([id number]) [address] [place] [address] 79831 #### 2839-9 #### [facility] ([id number]) [facility] [facility] [place] [address] ABSOLUTE NEUTROPHIL 4.8 X10E9/L Normal 1.5-6.6 [facility] Comment on above: Performed By: #### 3 8476-8 #### [facility] ([id number]) [address] [place] [address] 05796 #### 2839-9 #### [facility] ([id number]) [address] [facility], [address] [place] [address] Basophils/100 WBC (Bld) 0.3 % Normal [facility] Comment on above: Performed By: #### 3 8476-8 #### [facility] ([id number]) [address] [place] [address] 10747 #### 2839-9 #### [facility] ([id number]) [address], [address] [place] [address] Eosinophils (Bld) [#/Vol] 0.4 10*3/uL Normal 0.0-0.4 [facility] Comment on above: Performed By: #### 3 8476-8 #### [facility] ([id number]) [address] [place] [address] 68928 #### 2839-9 #### [facility] ([id number]) [address], [address] [place] [address] Eosinophils/100 WBC (Bld) 5.5 % Normal [facility] Comment on above: Performed By: #### 3 8476-8 #### [facility] ([id number]) [address] [place] [address] 63743 #### 2839-9 #### [facility] ([id number]) [address], [address] [place] [address] Erythrocyte distribution width (RBC) [Ratio] 13.1 % Normal 11.5-15.0 [facility] Comment on above: Performed By: #### 3 8476-8 #### [facility] ([id number]) [address] [place] [address] 34574 #### 2839-9 #### [facility] ([id number]) [address], [address] [place] [address] Hematocrit (Bld) [Volume fraction] 32.4 % Low 35-47 [facility] Comment on above: Performed By: #### 3 8476-8 #### [facility] ([id number]) [address] [place] [address] 59466 #### 2839-9 #### [facility] ([id number]) [address] [facility] [place] [address] Hemoglobin (Bld) [Mass/Vol] 11.2 g/dL Low 11.7-15.5 [facility] Comment on above: Performed By: #### 3 8476-8 #### [facility] ([id number]) [address] [place] [address] 19833 #### 2839-9 #### [facility] ([id number]) [address] [facility] [place] [address] Lymphocytes (Bld) [#/Vol] 1.7 10*3/uL Normal 1.0-3.5 [facility] Comment on above: Performed By: #### 3 8476-8 #### [facility] ([id number]) [address] [place] [address] 60732 #### 2839-9 #### [facility] ([id number]) [address] [facility] [place] [address] Lymphocytes/100 WBC (Bld) 21.9 % Normal [facility] Comment on above: Performed By: #### 3 8476-8 #### [facility] ([id number]) [address] [place] [address] 65291 #### 2839-9 #### [facility] ([id number]) [address] [facility] [place] [address] MCH (RBC) [Entitic mass] 31.7 pg Normal 27-34 [facility] Comment on above: Performed By: #### 3 8476-8 #### [facility] ([id number]) [address] [place] [address] 68397 #### 2839-9 #### [facility] ([id number]) [address], [address] [place] [address] MCHC (RBC) [Mass/Vol] 34.5 g/dL Normal 32-36 [facility] Comment on above: Performed By: #### 3 8476-8 #### [facility] ([id number]) [address] [place] [address] 16831 #### 2839-9 #### [facility] ([id number]) [address], [address] [place] [address] MCV (RBC) [Entitic vol] 92 fL Normal 80-100 [facility] Comment on above: Performed By: #### 3 8476-8 #### [facility] ([id number]) [address] [place] [address] 61217 #### 2839-9 #### [facility] ([id number]) [address] [place] [address] Monocytes (Bld) [#/Vol] 0.8 10*3/uL Normal 0-0.9 [facility] Comment on above: Performed By: #### 3 8476-8 #### [facility] ([id number]) [address] [place] [address] 99027 #### 2839-9 #### [facility] ([id number]) [address] [place] [address] Monocytes/100 WBC (Bld) 10.4 % Normal [facility] Comment on above: Performed By: #### 3 8476-8 #### [facility] ([id number]) [address] [place] [address] 04488 #### 2839-9 #### [facility] ([id number]) [address] [place] [address] Neutrophils/100 WBC (Bld) 61.9 % Normal [facility] Comment on above: Performed By: #### 3 8476-8 #### [facility] ([id number]) [address] [place] [address] 93587 #### 2839-9 #### [facility] ([id number]) [address] [place] [address] Platelet mean volume (Bld) [Entitic vol] 6.9 fL Low 7-12 [facility] Comment on above: Performed By: #### 3 8476-8 #### [facility] ([id number]) [address] [place] [address] 96024 #### 2839-9 #### [facility] ([id number]) [address] [place] [address] Platelets (Bld) [#/Vol] 172 10*3/uL Normal 150-450 [facility] Comment on above: Performed By: #### 3 8476-8 #### [facility] ([id number]) [address] [place] [address] 87237 #### 2839-9 #### [facility] ([id number]) [address] [place] [address] RBC COUNT 3.54 X10E12/L Low 3.80-5.20 [facility] Comment on above: Performed By: #### 3 8476-8 #### [facility] ([id number]) [address] [place] [address] 40116 #### 2839-9 #### [facility] ([id number]) [address] [place] [address] WBC (Bld) [#/Vol] 7.7 10*3/uL Normal 4.0-11.0 [facility] Comment on above: Performed By: #### 3 8476-8 #### [facility] ([id number]) [address] [place] [address] 73666 #### 2839-9 #### [facility] ([id number]) [address] [place] [address] COMPREHENSIVE METABOLIC PANE Augustin 06-06-2024 Albumin [Mass/Vol] 3.2 g/dL Normal 3.2-5.3 [facility] Comment on above: Performed By: #### 3 8476-8 #### [facility] ([id number]) [address] [place] [address] 01531 #### 2839-9 #### [facility] ([id number]) [address] [place] [address] ALP [Catalytic activity/Vol] 38 U/L Low 39-130 [facility] Comment on above: Performed By: #### 3 8476-8 #### [facility] ([id number]) [address] [place] [address] 31238 #### 2839-9 #### [facility] ([id number]) [address] [place] [address] ALT [Catalytic activity/Vol] 54 U/L High 0-31 [facility] Comment on above: Performed By: #### 3 8476-8 #### [facility] ([id number]) [address] [place] [address] 47092 #### 2839-9 #### [facility] ([id number]) [address] [place] [address] Anion gap [Moles/Vol] 1 mmol/L Low 5-15 [facility] Comment on above: Performed By: #### 3 8476-8 #### [facility] ([id number]) [address] [place] [address] 71642 #### 2839-9 #### [facility] ([id number]) [address] [place] [address] AST [Catalytic activity/Vol] 35 U/L Normal 0-41 [facility] Comment on above: Performed By: #### 3 8476-8 #### [facility] ([id number]) [address] [place] [address] 44469 #### 2839-9 #### [facility] ([id number]) [address] [facility] [place] [address] Bilirubin [Mass/Vol] 0.4 mg/dL Normal 0.3-1.2 [facility] Comment on above: Performed By: #### 3 8476-8 #### [facility] ([id number]) [address] [place] [address] 17744 #### 2839-9 #### [facility] ([id number]) [address] [facility] [place] [address] Calcium [Mass/Vol] 8.3 mg/dL Low 8.5-10.5 [facility] Comment on above: Performed By: #### 3 8476-8 #### [facility] ([id number]) [address] [place] [address] 03163 #### 2839-9 #### [facility] ([id number]) [address] [place] [address] Chloride [Moles/Vol] 103 mmol/L Normal 98-109 [facility] Comment on above: Performed By: #### 3 8476-8 #### [facility] ([id number]) [address] [place] [address] 12025 #### 2839-9 #### [facility] ([id number]) [address] [place] [address] CO2 [Moles/Vol] 26 mmol/L Normal 22-32 [facility] Comment on above: Performed By: #### 3 8476-8 #### [facility] ([id number]) [address] [place] [address] 38072 #### 2839-9 #### [facility] ([id number]) [address] [facility] [place] [address] Creatinine [Mass/Vol] 0.64 mg/dL Normal 0.40-1.00 [facility] Comment on above: Result Comment: METH OD TRACEABLE TO IDMS STANDARD Performed By: #### 3 8476-8 #### [facility] ([id number]) [address] [place] [address] 88338 #### 2839-9 #### [facility] ([id number]) [address] [facility] [place] [address] eGFR (CKD-EPI) NON-RACE DEPENDENT >90 Normal >59 [facility] Comment on above: Result Comment: Reported eGFR is based on the CKD-EPI 2021 equation that does not use a race coefficient. Performed By: #### 3 8476-8 #### [facility] ([id number]) [address] [place] [address] 90041 #### 2839-9 #### [facility] ([id number]) [address] [facility] [place] [address] Glucose [Mass/Vol] 79 mg/dL Normal 65-99 [facility] Comment on above: Performed By: #### 3 8476-8 #### [facility] ([id number]) [address] [place] [address] 9[address] #### 2839-9 #### [facility] ([id number]) [address], [address] [place] [address] Potassium [Moles/Vol] 3.7 mmol/L Normal 3.5-5.0 [facility] Comment on above: Performed By: #### 3 8476-8 #### [facility] ([id number]) [address] [place] [address] #### 2839-9 #### [facility] ([id number]) [address], [address] [place] [address] Protein [Mass/Vol] 6.1 g/dL Normal 6.0-8.0 [facility] Comment on above: Performed By: #### 3 8476-8 #### [facility] ([id number]) [address] [place] [address] #### 2839-9 #### [facility] ([id number]) [address], [address] [place] [address] Sodium [Moles/Vol] 130 mmol/L Low 134-146 [facility] Comment on above: Performed By: #### 3 8476-8 #### [facility] ([id number]) [address] [place] [address] #### 2839-9 #### [facility] ([id number]) [address], [address] [place] [address] Urea nitrogen [Mass/Vol] 15 mg/dL Normal 5-23 [facility] Comment on above: Performed By: #### 3 8476-8 #### [facility] ([id number]) [address] [place] [address] #### 2839-9 #### [facility] ([id number]) [address], [address] [place] [address] HCG.beta subunit IA 3rd IS Q non 06-06-2024 HCG.beta subunit Qn 330053 m[IU]/mL Normal [facility] Comment on above: Result Comment: NEW [...] neoplasms. Performed By: #### 3 8476-8 #### [facility] ([id number]) [address] [place] [address] #### 2839-9 #### [facility] ([id number]) [address], [address] [place] [address] URN MACROSCOPIC NURon 2023 BILIRUBIN CHLOÉ Negative Normal NEG [facility] Comment on above: Performed By: #### 3 8476-8 #### [facility] ([id number]) [address] [place] [address] #### 2839-9 #### [facility] ([id number]) [address], [address] [place] [address] BLOOD/HGB CHLOÉ Trace Abnormal NEG [facility] Comment on above: Performed By: #### 3 8476-8 #### [facility] ([id number]) [address] [place] [address] #### 2839-9 #### [facility] ([id number]) [address] [place] [address] GLUCOSE CHLOÉ Negative Normal NEG [facility] Comment on above: Performed By: #### 3 8476-8 #### [facility] [facility] ([id number]) [address] [place] [address] #### 2839-9 #### [facility] ([id number]) [address] [place] [address] KETONES CHLOÉ Negative Normal NEG [facility] Comment on above: Performed By: #### 3 8476-8 #### [facility] ([id number]) [address] [place] [address] 76808 #### 2839-9 #### [facility] ([id number]) [address], [address] [place] [address] LEUKOCYTE ESTERASE CHLOÉ Negative Normal NEG [facility] Comment on above: Performed By: #### 3 8476-8 #### [facility] ([id number]) [address] [place] [address] 00638 #### 2839-9 #### [facility] ([id number]) [address], [address] [place] [address] NITRITE CHLOÉ Negative Normal NEG [facility] Comment on above: Performed By: #### 3 8476-8 #### [facility] ([id number]) [address] [place] [address] 03648 #### 2839-9 #### [facility] ([id number]) [address] [place] [address] PH CHLOÉ 5.0 Normal 5.0-8.5 [facility] Comment on above: Performed By: #### 3 8476-8 #### [facility] ([id number]) [address] [place] [address] #### 2839-9 #### [facility] ([id number]) [address], [address] [place] [address] PROTEIN CHLOÉ Negative Normal NEG [facility] Comment on above: Performed By: #### 3 8476-8 #### [facility] ([id number]) [address] [place] [address] 37190 #### 2839-9 #### [facility] ([id number]) [address], [address] [place] [address] SPECIFIC GRAVITY CHLOÉ >=1.030 Normal 1.003-1.035 [facility] Comment on above: Performed By: #### 3 8476-8 #### [facility] ([id number]) [address] [place] [address] 79923 #### 2839-9 #### [facility] ([id number]) [address], [address] [place] [address] UROBILINOGEN CHLOÉ 0.2 eu/dL Normal <1.1 [facility] Comment on above: Performed By: #### 3 8476-8 #### [facility] ([id number]) [address] [place] [address] 87012 #### 2839-9 #### [facility] ([id number]) [address] [place] [address] HCG ( test) Ql (U)o n 05-27-2024 Beta HCG ( test) Ql (U) Positive Abnormal NEG [facility] Comment on above: Performed By: #### 3 8476-8 #### [facility] ([id number]) [address] [place] [address] 28630 #### 2839-9 #### [facility] ([id number]) [address], [address] [place] [address] URN MACROSCOPIC NURon 2023 BILIRUBIN CHLOÉ Negative Normal NEG [facility] Comment on above: Performed By: #### 3 5365-6, CMP, 3015-3, #### [facility] ([id number]) [address], [address] [place] [address] BLOOD/HGB CHLOÉ Small Abnormal NEG [facility] Comment on above: Performed By: #### 3 5365-6, CMP, 3015-3, #### [facility] ([id number]) [address], [address] [place] [address] GLUCOSE CHLOÉ Negative Normal NEG [facility] Comment on above: Performed By: #### 3 5365-6, CMP, 3015-3, #### [facility] ([id number]) [address], [address] [place] [address] KETONES CHLOÉ Negative Normal NEG [facility] Comment on above: Performed By: #### 3 5365-6, CMP, 3015-3, #### [facility] ([id number]) [address], [address] [place] [address] LEUKOCYTE ESTERASE CHLOÉ Negative Normal NEG [facility] Comment on above: Performed By: #### 3 5365-6, CMP, 3015-3, #### [facility] ([id number]) [address], [address] [place] [address] NITRITE CHLOÉ Negative Normal NEG [facility] Comment on above: Performed By: #### 3 5365-6, CMP, 3015-3, #### [facility] ([id number]) [address], [address] [place] [address] PH CHLOÉ 5.5 Normal 5.0-8.5 [facility] Comment on above: Performed By: #### 3 5365-6, CMP, 3016-3, 17064-9 #### [facility] ([id number]) [address], [address] [place] [address] PROTEIN CHLOÉ Negative Normal NEG [facility] Comment on above: Performed By: #### 3 5365-6, [facility], 3016-3, 98641-6 #### [facility] ([id number]) [address] [place] [address] SPECIFIC GRAVITY CHLOÉ >=1.030 Normal 1.003-1.035 [facility] Comment on above: Performed By: #### 3 5365-6, [facility], [facility]6-3, 60634-0 #### [facility] ([id number]) [address], [address] [place] [address] UROBILINOGEN CHLOÉ 1.0 eu/dL Normal <1.1 [facility] Comment on above: Performed By: #### 3 5365-6, [facility], [facility]-3, 67106-8 #### [facility] ([id number]) [address], [address] [place] [address] HCG.beta subunit IA 3rd IS Q non 05-14-2024 [place] [address] m[IU]/mL Normal P [facility] Comment on above: Result Comment: NEW [...] nontrophoblastic neoplasms. Performed By: #### 3 5365-6, [facility], 3016-3, 53997-0 #### [facility] ([id number]) [address] [place] [address] HCG.beta subunit IA 3rd IS Q non 05-11-2024 [place] [address] m[IU]/mL Normal P [facility] Comment on above: Result Comment: NEW [...] nontrophoblastic neoplasms. Performed By: #### 3 5365-6, [facility], 3016-3, 47552-5 #### [facility] ([id number]) [address] [place] [address] TSH Qnon 05-11-2024 TSH 1.06 uIU/mL Normal 0.49-4.67 [facility] Comment on above: Performed By: #### 3 5365-6, [facility], 3016-3, 23456-7 #### [facility] ([id number]) [address], [address] [place] [address] HCG.beta subunit IA 3rd IS Q non 05-08-2024 HCG.beta subunit Qn 6446 m[IU]/mL Normal [facility] Comment on above: Result Comment: NEW [...] nontrophoblastic neoplasms. Performed By: #### 3 5365-6, [facility], 3016-3, 93555-0 #### [facility] ([id number]) [address] [place] [address] [address] [place] [address] HCG.beta subunit IA 3rd IS Q non 05-06-2024 HCG.beta subunit Qn 3140 m[IU]/mL Normal [facility] Comment on above: Result Comment: NEW [...] Performed By: #### 3 5365-6, CMP, 3016-3, 63194-1 #### [facility] ([id number]) [address] [place] [address], [address] [place] [address] HCG.beta subunit IA 3rd IS Q non 05-01-2024 HCG.beta subunit Qn 560 m[IU]/mL Normal [facility] Comment on above: Result Comment: NEW REFERENCE [...] nontrophoblastic neoplasms. Performed By: #### 3 5365-6, [facility], 3016-3, 68145-4 #### [facility] ([id number]) [address] [place] [address], [address] [place] [address] HCG.beta subunit IA 3rd IS Q non 04-28-2024 HCG.beta subunit Qn 159 m[IU]/mL Normal [facility] Comment on above: Result Comment: NEW REFERENCE [...] nontrophoblastic neoplasms. Performed By: #### 3 5365-6, [facility], 3016-3, 95253-6 #### [facility] ([id number]) [address], [address] [place] [address] FREE T3on 02-14-2024 Free T3 [Mass/Vol] 3.94 pg/mL High 2.50-3.90 [facility] Comment on above: Performed By: #### 3 5365-6, [facility], [facility]6-3, 84598-8 #### [facility] ([id number]) [address], [address] [place] [address] THYROID PROFILEon 02-14-2024 Free T4 [Mass/Vol] 0.91 ng/dL Normal 0.61-1.60 [facility] Comment on above: Performed By: #### 3 5365-6, [facility], [facility]3, 53124-8 #### [facility] ([id number]) [address], [address] [place] [address] TSH 0.52 uIU/mL Normal 0.49-4.67 [facility] Comment on above: Performed By: #### 3 5365-6, [facility], [facility]-3, 33330-2 #### [facility] ([id number]) [address], [address] [place] [address] THYROPEROXIDASE ABon 024 TPO Ab Qn 403 [IU]/mL High <10 [facility] Comment on above: Performed By: #### 3 5365-6, [facility], [facility]6-3, 69874-2 #### [facility] ([id number]) [address], [address] [place] [address] Thyroid stimulating immunogl obulins Qn (S)on 02-14-2024 TSI See Below Normal [facility] Comment on above: Result Comment: NOTE [...] Clinical correlation is required. Test Performed By: [place] [address] Help Desk Technician: Eloy Dangelo III, M.D. CLIA #[id number] Performed By: #### 3 5365-6, CMP, 3016-3, 40985-2 #### [facility] ([id number]) [address], [address] [place] [address] ACUTE HEPATITIS PANELon 12-27 ANTI HCV W/PCR REFLX Non-Reactive Normal NRCT [facility] Comment on above: Result Comment: If recent infection suspected, recommend repeat testing (>2 months). Jrdmsi-kp-hpdbzz ratio is <0.80. Performed By: #### 3 5365-6, CMP, 3016-3, 78507-4 #### [facility] ([id number]) [address], [address] [place] [address] HEPATITIS A IGM Non-Reactive Normal NRCT [facility] Comment on above: Performed By: #### 3 5365-6, CMP, 3016-3, 08280-2 #### [facility] ([id number]) [address], [address] [place] [address] HEPATITIS B CORE IGM Negative Normal NEG [facility] Comment on above: Performed By: #### 3 5365-6, CMP, 3016-3, 84981-8 #### [facility] ([id number]) [address], [address] [place] [address] HEPATITIS B SURF AG Negative Normal NEG [facility] Comment on above: Performed By: #### 3 5365-6, CMP, 3016-3, 57147-8 #### [facility] ([id number]) [address], [address] [place] [address] COMPREHENSIVE METABOLIC PANE Augustin 2024 Albumin [Mass/Vol] 3.8 g/dL Normal 3.2-5.3 [facility] Comment on above: Performed By: #### 3 5365-6, CMP, 3016-3, 94110-7 #### [facility] ([id number]) [address], [address] [place] [address] ALP [Catalytic activity/Vol] 48 U/L Normal 39-130 [facility] Comment on above: Performed By: #### 3 5365-6, CMP, 3016-3, #### [facility] ([id number]) [address], [address] [place] [address] ALT [Catalytic activity/Vol] 38 U/L High 0-31 [facility] Comment on above: Performed By: #### 3 5365-6, CMP, 3016-3, 81868-2 #### [facility] ([id number]) [address], [address] [place] [address] Anion gap [Moles/Vol] 9 mmol/L Normal 5-15 [facility] Comment on above: Performed By: #### 3 5365-6, CMP, 3016-3, 07148-0 #### [facility] ([id number]) [address], [address] [place] [address] AST [Catalytic activity/Vol] 32 U/L Normal 0-41 [facility] Comment on above: Performed By: #### 3 5365-6, CMP, 3016-3, #### [facility] ([id number]) [address], [address] [place] [address] Bilirubin [Mass/Vol] 0.9 mg/dL Normal 0.3-1.2 [facility] Comment on above: Performed By: #### 3 5365-6, [facility], 3016-3, #### [facility] ([id number]) [address], [address] [place] [address] Calcium [Mass/Vol] 8.8 mg/dL Normal 8.5-10.5 [facility] Comment on above: Performed By: #### 3 5365-6, [facility], 6-3, #### [facility] ([id number]) [address], [address] [place] [address] Chloride [Moles/Vol] 104 mmol/L Normal 98-109 [facility] Comment on above: Performed By: #### 3 5365-6, [facility], 3015-3, #### [facility] ([id number]) [address], [address] [place] [address] CO2 [Moles/Vol] 26 mmol/L Normal 22-32 [facility] Comment on above: Performed By: #### 3 5365-6, [facility], 3015-3, #### [facility] ([id number]) [address], [address] [place] [address] Creatinine [Mass/Vol] 0.64 mg/dL Normal 0.40-1.00 [facility] Comment on above: Result Comment: METH OD TRACEABLE TO IDMS STANDARD Performed By: #### 3 5365-6, CMP, 3016-3, #### [facility] ([id number]) [address], [address] [place] [address] eGFR (CKD-EPI) NON-RACE DEPENDENT >90 Normal >59 [facility] Comment on above: Result Comment: Reported eGFR is based on the CKD-EPI 2020 equation that does not use a race coefficient. Performed By: #### 3 5365-6, [facility], 3016-3, #### [facility] ([id number]) [address], [address] [place] [address] Glucose [Mass/Vol] 80 mg/dL Normal 65-99 [facility] Comment on above: Performed By: #### 3 5365-6, [facility], 6-3, #### [facility] ([id number]) [address], [address] [place] [address] Potassium [Moles/Vol] 3.7 mmol/L Normal 3.5-5.0 [facility] Comment on above: Performed By: #### 3 5365-6, [facility], 6-3, #### [facility] ([id number]) [address], [address] [place] [address] Protein [Mass/Vol] 6.8 g/dL Normal 6.0-8.0 [facility] Comment on above: Performed By: #### 3 5365-6, [facility], 3015-3, #### [facility] ([id number]) [address], [address] [place] [address] Sodium [Moles/Vol] 139 mmol/L Normal 134-146 [facility] Comment on above: Performed By: #### 3 5365-6, [facility], 6-3, #### [facility] ([id number]) [address], [address] [place] [address] Urea nitrogen [Mass/Vol] 11 mg/dL Normal 5-23 [facility] Comment on above: Performed By: #### 3 5365-6, CMP, 6-3, #### [facility] ([id number]) [address], [address] [place] [address] Lipid 1996 panelon 4 Cholesterol [Mass/Vol] 94 mg/dL Low 150-200 [facility] Comment on above: Performed By: #### 3 5365-6, CMP, 3016-3, 21398-2 #### [facility] ([id number]) [address], [address] [place] [address] Cholesterol in HDL [Mass/Vol] 43 mg/dL Normal >39 [facility] Comment on above: Result Comment: HDL <40 mg/dL - High Risk HDL > or = 40mg/dL- Desirable HDL >60 mg/dL - Negative Risk Performed By: #### 3 5365-6, CMP, 3016-3, 20167-1 #### [facility] ([id number]) [address], [address] [place] [address] Cholesterol in LDL [Mass/Vol] 39 mg/dL Normal <130 [facility] Comment on above: Result Comment: LDL <100 mg/dL - Desirable LDL >160 mg/dL - High Risk Performed By: #### 3 5365-6, CMP, 3016-3, 24088-3 #### [facility] ([id number]) [address], [address] [place] [address] Cholesterol in VLDL [Mass/Vol] 12 mg/dL Normal 0-30 [facility] Comment on above: Performed By: #### 3 5365-6, CMP, 3016-3, 05037-3 #### [facility] ([id number]) [address], [address] [place] [address] CHOLESTEROL:HDL 2.2 Normal 1.0-5.0 [facility] Comment on above: Performed By: #### 3 5365-6, [facility], 3015-3, 51497-1 #### [facility] ([id number]) [address], [facility] [address] [place] [address] Triglyceride [Mass/Vol] 58 mg/dL Normal 27-150 [facility] Comment on above: Performed By: #### 3 5365-6, [facility], 3015-3, #### [facility] ([id number]) [address], [facility] [address] [place] [address] Mullerian inhibiting substan ce [Mass/Vol]on 2024 ANTI MULLERIAN HORM See Below Normal [facility] Comment on above: Result Comment: NOTE TEST RESULT FLAG UNIT REF.RANGE ------ Anti Mclean Hormone 0.54 L ng/mL 0.58-8.13 Test Performed By: [facility] [address] [place] [address] Help Desk Technician: Patti Jacobs III #[id number] Performed By: #### 3 5365-6, [facility], 3015-12, #### [facility] ([id number]) [address], [facility] [address] [place] [address] Selenium [Mass/Vol]on 2023 SELENIUM, SER/PLASMA 108.6 ug/L Normal 23.0-190.0 [facility] Comment on above: Result Comment: NOTE [...] developed and its performance characteristics determined by [facility]. It has not been cleared or approved by the [place] Food and Drug Administration. This test was performed in a CLIA certified laboratory and is intended for clinical purposes. Performed By: [facility] [address] [place] [address] Help Desk Technician: Deangelo Rosario MD, PhD CLIA Number: [id number] Performed By: #### 3 5365-6, [facility], 3015-12, 93282-6 #### [facility] ([id number]) [address] [address] THYROID PROFILEon 2024 Free T4 [Mass/Vol] 0.67 ng/dL Normal 0.61-1.60 [facility] Comment on above: Performed By: #### 3 5365-6, [facility], 3, 96068-7 #### [facility] ([id number]) [address] [address] TSH 2.55 uIU/mL Normal 0.49-4.67 [facility] Comment on above: Performed By: #### 3 5365-6, [facility], 3, 01954-9 #### [facility] ([id number]) [address] [address] VITAMIN E, SER/PLon 01-24-20 VIT E(ALPHA-TOCOPHEROL) 7.6 mg/L Normal 5.5-18.0 [facility] Comment on above: Result Comment: NOTE This test was developed and its performance characteristics determined by [facility]. It has not been cleared or approved by the US Food and Drug Administration. This test was performed in a CLIA certified laboratory and is intended for clinical purposes. Performed By: #### 3 5365-6, [place], 3015-12, #### [facility] ([id number]) [address], [address] [place] [address] VIT E(GAMMA-TOCOPHEROL) 0.3 mg/L Normal 0.0-6.0 [facility] Comment on above: Result Comment: NOTE Performed By: [facility] [address] [place] [address] Help Desk Technician: Deangelo Rosario MD, PhD CLIA Number: [id number] Performed By: #### 3 5365-6, [place], 3015-12, #### [facility] ([id number]) [address], [address] [place] [address] LIVER PANELon 01-18-2024 Albumin [Mass/Vol] 3.8 g/dL Normal 3.2-5.3 [facility] Comment on above: Performed By: #### 3 5365-6, [facility], 3015-12, #### [facility] ([id number]) [address], [address] [place] [address] ALP [Catalytic activity/Vol] 44 U/L Normal 39-130 [facility] Comment on above: Performed By: #### 3 5365-6, [facility], 3015-12, #### [facility] ([id number]) [address], [address] [place] [address] ALT [Catalytic activity/Vol] 33 U/L High 0-31 [facility] Comment on above: Performed By: #### 3 5365-6, [place], 3, 35390-5 #### [facility] ([id number]) [address], [address] [place] [address] AST [Catalytic activity/Vol] 30 U/L Normal 0-41 [facility] Comment on above: Performed By: #### 3 5365-6, CMP, 3016-3, 75192-6 #### [facility] ([id number]) [address], [address] [place] [address] Bilirubin [Mass/Vol] 0.7 mg/dL Normal 0.3-1.2 [facility] Comment on above: Performed By: #### 3 5365-6, CMP, 6-3, #### [facility] ([id number]) [address], [address] [place] [address] Bilirubin.direct [Mass/Vol] 0.2 mg/dL Normal 0.0-0.4 [facility] Comment on above: Performed By: #### 3 5365-6, CMP, 6-3, #### [facility] ([id number]) [address], [address] [place] [address] Protein [Mass/Vol] 6.7 g/dL Normal 6.0-8.0 [facility] Comment on above: Performed By: #### 3 5365-6, CMP, 6-3, 85516-5 #### [facility] ([id number]) [address], [address] [place] [address] MAGNESIUMon 01-18-2024 Magnesium [Mass/Vol] 1.7 mg/dL Low 1.8-2.6 [facility] Comment on above: Performed By: #### 3 5365-6, CMP, 6-3, 08417-0 #### [facility] ([id number]) [address], [address] [place] [address] TSH Qnon 01-18-2024 TSH 1.07 uIU/mL Normal 0.49-4.67 [facility] Comment on above: Performed By: #### 3 5365-6, CMP, 3016-3, 22966-2 #### [facility] ([id number]) [address], [address] [place] [address] Vitamin D+Metabolites [Mass/ Vol]on 01-18-2024 VITAMIN D 25 HYD TOT 86.7 ng/mL Normal 30-100 [facility] Comment on above: Result Comment: Vitamin D status 25 [place] Vitamin D Deficiency <20 ng/mL Insufficiency 20-29 ng/mL Sufficiency 30-100 ng/mL Toxicity >100 ng/mL NOTE: A pediatric reference range has not been established by the in[employer]aver of this kit. The [place] [employer] recommends a Vitamin D level of = or >20ng/mL in infants and children. Performed By: #### 3 5365-6, [facility], 3016-3, 00750-8 #### [facility] ([id number]) [address], [address] [place] [address] US THYROIDon 01-06-2024 US THYROID US THYROID [...] Friend MD on 01/06/2024 6:53 AM Normal [facility] FREE T3on 01-03-2024 Free T3 [Mass/Vol] 3.48 pg/mL Normal 2.50-3.90 [facility] Comment on above: Performed By: #### 3 5365-6, [facility], 3016-3, 90285-8 #### [facility] ([id number]) [address] [place] [address], [address] [place] [address] Reference Lab Test IDon 03-0 CELIAC COMP CASCADE SEE COMMENTS 01/10/2024 10:26 PM Normal [facility] Comment on above: Result Comment: NOTE [...] instructions. Its performance characteristics were determined by [facility] in a manner consistent with CLIA requirements. This test has not been cleared or approved by the U.S. Food and Drug Administration. CLIA: [id number] CLIA Help Desk Administrator: ALAN LOUIS MD,PhD Celiac Disease See Note Interpretation See Comment: Celiac disease probable. Consider biopsy. Test Performed by: [facility] [address] [id number] Help Desk Administrator: Alan Louis M.D. Ph.D.; CLIA# [id number] Test Performed by: [facility] [address] [place] [address] Help Desk Administrator: Alan Louis M.D. Ph.D.; CLIA# [id number] Performed By: #### 3 5365-6, [facility], 3016-3, 07397-8 #### [facility] ([id number]) [address] [place] [address], [facility] [address] [place] [address] THYROID PROFILEon 01-03-2024 Free T4 [Mass/Vol] 0.82 ng/dL Normal 0.61-1.60 [facility] Comment on above: Performed By: #### 3 5365-6, [facility], 3016-3, 38110-3 #### [facility] ([id number]) [address] [place] [address], [facility] [address] [place] [address] TSH 0.41 uIU/mL Low 0.49-4.67 [facility] Comment on above: Performed By: #### 3 5365-6, [facility], 3016-3, 42767-5 #### [facility] ([id number]) [address] [place] [address], [facility] [address] [place] [address] tTG IgA IA Qn (S)on 01-03-20 ENDOMYSIAL ABS IGA Negative Normal Negative [facility] Comment on above: Result Comment: NOTE [...] as indicated by the Celiac Disease Comprehensive [place] ([place] [facility] Code CDCOM). In addition serum IgA endomysial antibody may also be negative in gluten-sensitive patients (with celiac disease, dermatitis herpetiformis or other gluten-sensitive disorders), who adhere to a strict gluten-free diet. ADDITIONAL INFORMATION This test has been modified from the inweaver's instructions. Its performance characteristics were determined by [facility] in a manner consistent with CLIA requirements. This test has not been cleared or approved by the U.S. Food and Drug Administration. Test Performed by: [place] [address] Help Desk Administrator: Alan Louis M.D. Ph.D.; CLIA# [id number] Performed By: #### 3 5365-6, [facility] [facility], 3016-3, 33475-8 #### [facility] ([id number]) [address] [facility], [address] [place] [address] FREE T3on 12-21-2023 Free T3 [Mass/Vol] 3.75 pg/mL Normal 2.50-3.90 [facility] Comment on above: Performed By: #### T HYR, 3051-0, 8099-4 #### [facility] ([id number]) [address] [facility] [facility], [address] [place] [address] #### 20341-8 #### [facility] ([id number]) [address] [place] [address] Mullerian inhibiting substan ce [Mass/Vol]on 12-21-2023 ANTI MULLERIAN HORM See Below Normal [facility] Comment on above: Result Comment: NOTE TEST RESULT FLAG UNIT REF.RANGE ------ Anti Mclean Hormone 0.37 L ng/mL 0.58-8.13 Test Performed By: [place] [address] Help Desk Technician: Patti Jacobs III #[id number] Performed By: #### 3 5365-6, [facility], 3016-3, 51680-8 #### [facility] ([id number]) [address] [address], [address] [place] [address] THYROID PROFILEon 12-21-2023 Free T4 [Mass/Vol] 0.94 ng/dL Normal 0.61-1.60 [facility] Comment on above: Performed By: #### T NACHOR, 3051-0, 8099-4 #### [facility] ([id number]) [address] [facility], [facility] [address] [place] [address] #### 42099-6 #### [facility] ([id number]) [address] [place] [address] TSH 0.19 uIU/mL Low 0.49-4.67 [facility] Comment on above: Performed By: #### T HYR, 3051-0, 8099-4 #### [facility] ([id number]) [address] [facility], [facility] [address] [place] [address] #### 26225-6 #### [facility] ([id number]) [address] [place] [address] THYROPEROXIDASE ABon 024 TPO Ab Qn 415 [IU]/mL High <10 [facility] Comment on above: Performed By: #### T HYR, 3051-0, 8099-4 #### [facility] ([id number]) [address] [facility] [facility] [facility], [address] [place] [address] #### 24357-1 #### [facility] ([id number]) [address] [place] [address], [place] [address] Thyroid stimulating immunogl obulins Qn (S)on 12-21-2023 TSI See Below Normal [facility] Comment on above: Result Comment: NOTE [...] Clinical correlation is required. Test Performed By: [employer] [address] [place] [address] Help Desk Technician: Eloy Dangelo III, M.D. CLIA #[id number] Performed By: #### 3 5365-6, [facility], 3016-3, 65832-8 #### [facility] ([id number]) [address] [place] [address], [address] [place] [address] Mullerian inhibiting substan ce [Mass/Vol]on 12-13-2023 ANTI MULLERIAN HORM See Below Normal [facility] Comment on above: Result Comment: NOTE TEST RESULT FLAG UNIT REF.RANGE ------ Anti Mclean Hormone 0.31 L ng/mL 0.58-8.13 Test Performed By: [employer] [address] [place] [address] Help Desk Technician: Eloy Dangelo III, M.D. CLIA #[id number] Performed By: #### 3 8476-8 #### [facility] ([id number]) [address] [place] [address] #### 2839-9 #### [facility] ([id number]) [address], [address] [place] [address] Progesterone [Mass/Vol]on PROGESTERONE 3.5 ng/mL [facility] Comment on above: Result Comment: FEMALES: 1st Tri: 4.7-50.7 ng/ml 2nd Tri: 19.4-45.3 ng/ml MENSTRUATING FEMALES: Follicular: 0.3-1.5 ng/ml Mid Luteal: 5.2-18.6 ng/ml Post Marcella: <0.1-0.8 ng/ml Performed By: #### 3 8476-8 #### [facility] ([id number]) [address] [place] [address] #### 2839-9 #### [facility] ([id number]) [address] [facility] [facility] [facility], [address] [place] [address] US PELVIC WITH TRANSVAGINALo n 12-13-2023 US [...] Friend MD on 12/13/2023 6:28 PM Normal [facility] Surgical Pathology Reporton 11-27-2023 Surgical Pathology Report (NOTE) Path Number: [id number] -- Diagnosis -- GALLBLADDER, CHOLECYSTECTOMY: -CHRONIC CHOLECYSTITIS [...] lesions or periductal lymph nodes are identified. 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 tm Peggy Naylor/kb2:11/27/2023 Microscopic Description Microscopic examination performed. Processing Lab: [address] [address] Interpretation Performed at [address] [address] SURGICAL PATHOLOGY CONSULTATION Patient Name: PHILLIP AVALOS [facility] Rec: [id number] [facility] ANATOMIC PATHOLOGY [address] [place] [address]. [place], [place] [address] Normal [facility] COMPREHENSIVE METABOLIC PANE Augustin 11-16-2023 Albumin [Mass/Vol] 3.7 g/dL Normal 3.2-5.3 [facility] Comment on above: Performed By: #### 3 5365-6, CMP, 3016-3, 54339-7 #### [facility] ([id number]) [address], [address] [place] [address] ALP [Catalytic activity/Vol] 45 U/L Normal 39-130 [facility] Comment on above: Performed By: #### 3 5365-6, CMP, 3016-3, 67933-4 #### [facility] ([id number]) [address], [address] [place] [address] ALT [Catalytic activity/Vol] 51 U/L High 0-31 [facility] Comment on above: Performed By: #### 3 5365-6, CMP, 3016-3, #### [facility] ([id number]) [address], [address] [place] [address] Anion gap [Moles/Vol] 8 mmol/L Normal 5-15 [facility] Comment on above: Performed By: #### 3 5365-6, CMP, 6-3, 04978-1 #### [facility] ([id number]) [address], [address] [place] [address] AST [Catalytic activity/Vol] 40 U/L Normal 0-41 [facility] Comment on above: Performed By: #### 3 5365-6, CMP, 6-3, #### [facility] ([id number]) [address], [address] [place] [address] Bilirubin [Mass/Vol] 0.7 mg/dL Normal 0.3-1.2 [facility] Comment on above: Performed By: #### 3 5365-6, CMP, 3016-3, 31065-0 #### [facility] ([id number]) [address], [address] [place] [address] Calcium [Mass/Vol] 8.8 mg/dL Normal 8.5-10.5 [facility] Comment on above: Performed By: #### 3 5365-6, CMP, 3016-3, 11484-0 #### [facility] ([id number]) [address], [address] [place] [address] Chloride [Moles/Vol] 106 mmol/L Normal 98-109 [facility] Comment on above: Performed By: #### 3 5365-6, CMP, 3016-3, 19067-3 #### [facility] ([id number]) [address], [address] [place] [address] CO2 [Moles/Vol] 27 mmol/L Normal 22-32 [facility] Comment on above: Performed By: #### 3 5365-6, CMP, 3016-3, 15144-7 #### [facility] ([id number]) [address], [address] [place] [address] Creatinine [Mass/Vol] 0.60 mg/dL Normal 0.40-1.00 [facility] Comment on above: Result Comment: METH OD TRACEABLE TO IDMS STANDARD Performed By: #### 3 5365-6, CMP, 3016-3, 88192-3 #### [facility] ([id number]) [address], [address] [place] [address] eGFR (CKD-EPI) NON-RACE DEPENDENT >90 Normal >59 [facility] Comment on above: Result Comment: Reported eGFR is based on the CKD-EPI 2021 equation that does not use a race coefficient. Performed By: #### 3 5365-6, CMP, 3016-3, 32349-6 #### [facility] ([id number]) [address], [address] [place] [address] Glucose [Mass/Vol] 79 mg/dL Normal 65-99 [facility] Comment on above: Performed By: #### 3 5365-6, CMP, 3016-3, 95469-4 #### [facility] ([id number]) [address], [address] [place] [address] Potassium [Moles/Vol] 3.8 mmol/L Normal 3.5-5.0 [facility] Comment on above: Performed By: #### 3 5365-6, CMP, 3016-3, 01142-3 #### [facility] ([id number]) [address], [address] [place] [address] Protein [Mass/Vol] 6.4 g/dL Normal 6.0-8.0 [facility] Comment on above: Performed By: #### 3 5365-6, [facility], 6-3, 48817-2 #### [facility] ([id number]) [address], [address] [place] [address] Sodium [Moles/Vol] 141 mmol/L Normal 134-146 [facility] Comment on above: Performed By: #### 3 5365-6, [facility], 3015-3, 93017-4 #### [facility] ([id number]) [address], [address] [place] [address] Urea nitrogen [Mass/Vol] 11 mg/dL Normal 5-23 [facility] Comment on above: Performed By: #### 3 5365-6, CMP, 6-3, 49352-4 #### [facility] ([id number]) [address], [address] [place] [address] MAGNESIUMon 11-16-2023 Magnesium [Mass/Vol] 1.8 mg/dL Normal 1.8-2.6 [facility] Comment on above: Performed By: #### 3 5365-6, CMP, 6-3, 86919-7 #### [facility] ([id number]) [address], [address] [place] [address] TSH Qnon 11-16-2023 TSH 0.19 uIU/mL Low 0.49-4.67 [facility] Comment on above: Performed By: #### 3 5365-6, [facility], 3016-3, 73782-7 #### [facility] ([id number]) [address] [place] [address], [address] [place] [address] Vitamin D+Metabolites [Mass/ Vol]on 11-16-2023 VITAMIN D 25 HYD TOT 65.7 ng/mL Normal 30-100 [facility] Comment on above: Result Comment: Vitamin D status 25 [place] Vitamin D Deficiency <20 ng/mL Insufficiency 20-29 ng/mL Sufficiency 30-100 ng/mL Toxicity >100 ng/mL NOTE: A pediatric reference range has not been established by the inweaver of this kit. The [place] [employer] recommends a Vitamin D level of = or >20ng/mL in infants and children. Performed By: #### 3 5365-6, [facility], 3016-3, 31656-4 #### [facility] ([id number]) [address] [place] [address], [address] [place] [address] CBC AUTO DIFFon 03-13-2023 BASO # 0.0 103/ul Normal 0.0-0.1 [facility] Comment on above: Performed By: #### C BC #### [facility] [address] [place] [address] [address] Froy Calderón Basophils/100 WBC (Bld) 0.6 % Normal 0.2-2.0 [facility] Comment on above: Performed By: #### C BC #### [facility] [address] [place] [address] [address] Froy Calderón EO # 0.3 103/ul Normal 0.0-0.7 [facility] Comment on above: Performed By: #### C BC #### [facility] [address] [place] [address] [address] Froy Calderón Eosinophils/100 WBC (Bld) 3.9 % Normal 0.9-7.0 [facility] Comment on above: Performed By: #### C BC #### [facility] [address] [place] [address] Dr. Froy Calderón Erythrocyte distribution width (RBC) [Ratio] 12.0 % Normal 11.0-15.0 [facility] Comment on above: Performed By: #### C BC #### [facility] [address] [place] [address] Dr. Froy Calderón Hematocrit (Bld) [Volume fraction] 38.6 % Normal 36.0-48.0 [facility] Comment on above: Performed By: #### C BC #### [facility] [address] [place] [address] Dr. Froy Calderón Hemoglobin (Bld) [Mass/Vol] 12.9 g/dL Normal 12.0-16.0 [facility] Comment on above: Performed By: #### C BC #### [facility] [address] [place] [address] Dr. Froy Calderón IG # 0.02 10e3/ul Normal 0.00-0.03 [facility] Comment on above: Performed By: #### C BC #### [facility] [address] [place] [address] Dr. Froy Calderón IG % 0.3 % Normal 0.0-0.5 [facility] Comment on above: Performed By: #### C BC #### [facility] [address] [place] [address] Dr. Froy Calderón LYMPH # 1.8 103/ul Normal 1.2-3.8 [facility] Comment on above: Performed By: #### C BC #### [facility] [address] [place] [address] Dr. Froy Calderón Lymphocytes/100 WBC (Bld) 26.5 % Normal 20.5-60.0 [facility] Comment on above: Performed By: #### C BC #### [facility] [address] [place] [address] Dr. Froy Calderón MANUAL DIFF REQ NO Normal [facility] Comment on above: Performed By: #### C BC #### [facility] [address] [place] [address] Dr. Froy Calderón MCH (RBC) [Entitic mass] 31.3 pg Normal 26.7-34.0 [facility] Comment on above: Performed By: #### C BC #### [facility] [address] [place] [address] Dr. Froy Calderón MCHC (RBC) [Mass/Vol] 33.4 g/dL Normal 29.9-35.2 [facility] Comment on above: Performed By: #### C BC #### [facility] [address] [place] [address] Dr. Froy Calderón MCV (RBC) [Entitic vol] 93.7 fL Normal 81.0-99.0 [facility] Comment on above: Performed By: #### C BC #### [facility] [address] [place] [address] Dr. Froy Calderón MONO # 0.6 103/ul Normal 0.3-0.8 [facility] Comment on above: Performed By: #### C BC #### [facility] [address] [place] [address] Dr. Froy Calderón Monocytes/100 WBC (Bld) 8.1 % Normal 1.7-12.0 [facility] Comment on above: Performed By: #### C BC #### [facility] [address] [place] [address] Dr. Froy Calderón NEUT # 4.2 103/ul Normal 1.4-6.5 [facility] Comment on above: Performed By: #### C BC #### [facility] [address] [place] [address] Dr. Froy Calderón Neutrophils/100 WBC (Bld) 60.6 % Normal 43.0-75.0 [facility] Comment on above: Performed By: #### C BC #### [facility] [address] [place] [address] Dr. Froy Calderón Platelet mean volume (Bld) [Entitic vol] 9.2 fL Critically low 9.5-13.5 [facility] Comment on above: Performed By: #### C BC #### [facility] [address] [address] [address] Froy Calderón PLT 226 103/ul Normal 150-450 [facility] Comment on above: Performed By: #### C BC #### [facility] [address] [address] [address] Froy Calderón RBC 4.12 106/ul Critically low 4.20-5.40 [facility] Comment on above: Performed By: #### C BC #### [facility] [address] [address] [address] Froy Calderón WBC 7.0 103/ul Normal 4.0-11.0 [facility] Comment on above: Performed By: #### C BC #### [facility] [address] [place] [address] Dr. Froy Calderón FREE T4on 03-13-2023 Free T4 [Mass/Vol] 0.96 ng/dL Normal 0.76-1.46 [facility] Comment on above: Performed By: #### F T4 #### [facility] [address] [address] [address] Froy Calderón GLYCOHEMOGLOBIN A1Con 2022 ADA RECOMMENDATION SEE BELOW Normal [facility] Comment on above: Result Comment: ADA RECOMMENDED LIMIT 4.0 - 6.0 ADA THERAPEUTIC TARGET < 7.0 ACTION SUGGESTED > 7.0 Performed By: #### A 1C #### [facility] [address] [address] [address] Froy Calderón Glucose [Mass/Vol] 91 mg/dL Normal [facility] Comment on above: Performed By: #### A 1C #### [facility] [address] [address] [address] Froy Calderón HbA1c (Bld) [Mass fraction] 4.8 % Normal 4.5-6.2 [facility] Comment on above: Performed By: #### A 1C #### [facility] [address] [place] [address] Dr. Froy Calderón TSHon 03-13-2023 TSH 5.367 uIU/mL Critically high 0.358-3.740 [facility] Comment on above: Performed By: #### T SH #### [facility] [address] [address] [address] Froy Calderón US PELVIS AND TRANSVAGon [...] by: NATALIE KHAN Date: 2023-02-19 09:20 Normal [facility] PAP ACOG PANEL 2: 30 to 65on 01-31-2023 . . Normal [facility] Comment on above: Result Comment: Perf ormed at: WB Performed By: #### 4 [id number] #### [facility] [address] [place] [address] Dr. Froy Calderón Age Gdln ACOG Testing 30-65 Normal [facility] Comment on above: Performed By: #### 4 [id number] #### [facility] [address] [place], [place] [address] Dr. Froy Calderón DIAGNOSIS: Comment Normal [facility] Comment on above: Result Comment: NEGA TIVE FOR INTRAEPITHELIAL LESION OR MALIGNANCY. Performed at: WB Performed By: #### 4 [id number] #### [facility] [address] [address] [address] Froy Calderón HPV Aptima Negative Normal Negative [facility] Comment on above: Result Comment: This nucleic acid amplification test detects fourteen high-risk HPV types (16,18,31,33,35,39,45,51,52,56,58,59,66,68) without differentiation. Performed at: =G Performed By: #### 4 [id number] #### [facility] [address] [address] [address] Froy Calderón HPV Genotype Reflex Comment Normal [facility] Comment on above: Result Comment: Crit eria not met, HPV Genotype not performed. Performed at: WB Performed By: #### 4 [id number] #### [facility] [address] [place] [address] Dr. Froy Calderón Methodology: Comment Normal [facility] Comment on above: Result Comment: This liquid based ThinPrep(R) pap test was screened with the use of an image guided system. Performed at: WB Performed By: #### 4 [id number] #### [facility] [address] [place] [address] Dr. Froy Calderón Note: Comment Normal [facility] Comment on above: Result Comment: The Pap smear is a screening test designed to aid in the detection of premalignant and malignant conditions of the uterine cervix. It is not a diagnostic procedure and should not be used as the sole means of detecting cervical cancer. Both false-positive and false-negative reports do occur. . Performed at: WB Performed By: #### 4 [id number] #### [facility] [address] [address] [address] Froy Calderón Performed by: Comment Normal [facility] Comment on above: Result Comment: Racheal Villatoro, Excavator Operator Performed at: WB Performed By: #### 4 [id number] #### [facility] [address] [address] [address] Froy Calderón Specimen adequacy: Comment Normal [facility] Comment on above: Result Comment: Sati sfactory for evaluation. Endocervical and/or squamous metaplastic cells (endocervical component) are present. Performed at: WB Performed By: #### 4 [id number] #### [facility] [address] [address] [address] Froy Calderón Cytology Cervical or vaginal smear or scraping studyon 2023 [facility] PREG QUANT HCGon 12-03-2022 HCG QUANT <1 Normal [facility] Comment on above: Performed By: #### P REGQNT #### [facility] [address] [address] [address] Froy Calderón HCG RANGE SEE BELOW Normal [facility] Comment on above: Result Comment: 5-50 0.2-1 WEEK 50-500 1-2 WEEKS 100-5,000 2-3 WEEKS 500-10,000 3-4 WEEKS 1,000-50,000 4-5 WEEKS 10,000-100,000 5-6 WEEKS 15,000-200,000 6-8 WEEKS 10,000-100,000 2-3 MONTHS Performed By: #### P REGQNT #### [facility] [address] [place] [address] Dr. Froy Calderón Basic Metabolic Panelon 09-0 Anion gap [Moles/Vol] 10 mmol/L 9 - 17 mmol/L [employer] [facility] [employer] Calcium [Mass/Vol] 8.4 mg/dL Low 8.6 - 10. 4 mg/dL [facility] [employer] Chloride [Moles/Vol] 107 mmol/L 98 - 10 7 mmol/L [facility] [employer] CO2 [Moles/Vol] 21 mmol/L 20 - 31 mmol/L [facility] [employer] Creatinine [Mass/Vol] 0.61 mg/dL 0.5 - 0.9 mg/dL [employer] [facility] [employer] GFR >60 60 - PI NF mL/min [employer] [facility] [employer] GFR Non- >60 60 - PINF mL/min [employer] [facility] [employer] GFR/1.73 sq M.predicted MDRD (S/P/Bld) [Vol rate/Area] [facility] [employer] Comment on above: Average GFR for 20-2 9 years old: 116 mL/min/1.73sq m Chronic Kidney Disease: <60 mL/min/1.73sq m Kidney failure: <15 mL/min/1.73sq m eGFR calculated using average adult body mass. Additional eGFR calculator available at: http://www.Engiver/multiple_crcl_2012.htm Glucose [Mass/Vol] 107 mg/dL High 70 - 99 mg/dL [facility] Interpretation and review of laboratory results Abnormal [facility] Potassium [Moles/Vol] 5.0 mmol/L 3.7 - 5.3 mmol/L [facility] Sodium [Moles/Vol] 138 mmol/L 135 - 144 mmol/L [facility] Urea nitrogen (BldV) [Mass/Vol] 7 mg/dL 6 - 20 mg/dL [facility] CBCon 07-04-2022 Hematocrit (Bld) [Volume fraction] 39.8 % 36.3 - 47.1 % [facility] Hemoglobin (Bld) [Mass/Vol] 13.4 g/dL 11.9 - 15.1 g/dL [facility] Interpretation and review of laboratory results Abnormal [facility] MCH (RBC) [Entitic mass] 30.1 pg 25.2 - 33.5 pg [facility] MCHC (RBC) [Mass/Vol] 33.7 g/dL 28.4 - 34.8 g/dL [facility] MCV (RBC) [Entitic vol] 89.4 fL 82.6 - 102.9 fL [facility] NRBC Automated 0.0 0.0 per 100 WBC [facility] Platelet distribution width (Bld) [Ratio] 11.6 % Low 11.8 - 14.4 % [facility] Platelet mean volume (Bld) [Entitic vol] 9.6 fL 8.1 - 13.5 fL [facility] Platelets (Bld) [#/Vol] 217 10*3/uL [facility] RBC (Bld) [#/Vol] 4.45 10*6/uL 3.95 - 5.1 1 m/uL [facility] WBC (Bld) [#/Vol] 13.6 10*3/uL High [facility] Basic Metabolic Panelon 09- Anion gap [Moles/Vol] 14 mmol/L 9 - 17 mmol/L [facility] Calcium [Mass/Vol] 8.8 mg/dL 8.6 - 10. 4 mg/dL [facility] Chloride [Moles/Vol] 103 mmol/L 98 - 10 7 mmol/L [facility] CO2 [Moles/Vol] 18 mmol/L Low 20 - 31 mmol/L [facility] Creatinine [Mass/Vol] 0.66 mg/dL 0.5 - 0.9 mg/dL [facility] GFR >60 60 - PI NF mL/min [facility] GFR Non- >60 60 - PINF mL/min [facility] GFR/1.73 sq M.predicted MDRD (S/P/Bld) [Vol rate/Area] [facility] Comment on above: Average GFR for 20-2 9 years old: 116 mL/min/1.73sq m Chronic Kidney Disease: <60 mL/min/1.73sq m Kidney failure: <15 mL/min/1.73sq m eGFR calculated using average adult body mass. Additional eGFR calculator available at: http://www.Engiver/multiple_crcl_2011.htm Glucose [Mass/Vol] 126 mg/dL High 70 - 99 mg/dL [facility] Interpretation and review of laboratory results Abnormal [facility] Potassium [Moles/Vol] 4.3 mmol/L 3.7 - 5.3 mmol/L [facility] Sodium [Moles/Vol] 135 mmol/L 135 - 144 mmol/L [facility] Urea nitrogen (BldV) [Mass/Vol] 11 mg/dL 6 - 20 mg/dL [facility] CBC without Diffon Hematocrit (Bld) [Volume fraction] 46.4 % 36.3 - 47.1 % [facility] Hemoglobin (Bld) [Mass/Vol] 15.2 g/dL High 11.9 - 15.1 g/dL [facility] Interpretation and review of laboratory results Abnormal [facility] MCH (RBC) [Entitic mass] 29.9 pg 25.2 - 33.5 pg [facility] MCHC (RBC) [Mass/Vol] 32.8 g/dL 28.4 - 34.8 g/dL [facility] MCV (RBC) [Entitic vol] 91.2 fL 82.6 - 102.9 fL [facility] NRBC Automated 0.0 0.0 per 100 WBC [facility] Platelet distribution width (Bld) [Ratio] 11.9 % 11.8 - 14.4 % [facility] Platelet mean volume (Bld) [Entitic vol] 9.4 fL 8.1 - 13.5 fL [facility] Platelets (Bld) [#/Vol] 232 10*3/uL [facility] RBC (Bld) [#/Vol] 5.09 10*6/uL 3.95 - 5.1 1 m/uL [facility] WBC (Bld) [#/Vol] 9.0 10*3/uL [facility] POCT urine pregnancyon 07-03 Beta HCG ( test) Ql (U) Negative NEGATIVE [facility] Comment on above: Specimens with hCG l evels near the threshold of the test (25 mIU/mL) may give a negative or indeterminate result. In such cases, another test should be performed with a new specimen in 48-72 hours. If early is suspected clinically in this setting, correlation with quantitative serum b-hCG level is suggested. [facility] Gastroenterology Office/Clin ic Noteon 03-29-2021 Gastroenterology Office/Clinic [...] by Magdalene Banerjee 04/03/2021 09:24 EDT Normal [facility] 02-27-2021 Consent [id number]# 1.00CD:127 Normal [facility] Registrationon 02-27-2021 Registration [id number]# 1.00CD:127 [facility] Vital Signs Date Time Vital Sign Value Performing Clinician Facility 12-02-2024 10:45-0500 Body mass index (BMI) [Ratio] 27.17 kg/m2 Jake Fe DO Work Phone: [facility] 12-02-2024 10:45-0500 Body weight 88.36 kg Jake Fe DO Work Phone: [facility] 12-02-2024 10:45-0500 Diastolic blood pressure 72 mm[Hg] Jake Fe DO Work Phone: [facility] 12-02-2024 10:45-0500 Systolic blood pressure 110 mm[Hg] Jake Fe DO Work Phone: [facility] 11-20-2024 09:56-0500 Body mass index (BMI) [Ratio] 27.66 kg/m2 Ronaldo Mcnulty MD Work Phone: [facility] 11-20-2024 09:56-0500 Body weight 87.45 kg Ronaldo Mcnulty MD Work Phone: [facility] 11-20-2024 09:56-0500 Diastolic blood pressure 78 mm[Hg] Ronaldo Mcnulty MD Work Phone: [facility] 11-20-2024 09:56-0500 Heart rate 86 /min Ronaldo Mcnulty MD Work Phone: [facility] 11-20-2024 09:56-0500 Systolic blood pressure 116 mm[Hg] Ronaldo Mcnulty MD Work Phone: [facility] 11-18-2024 15:49-0500 Body mass index (BMI) [Ratio] 27.06 kg/m2 Jake Fe DO Work Phone: [facility] 11-18-2024 15:49-0500 Body weight 88 kg Jake Fe DO Work Phone: [facility] 11-18-2024 15:49-0500 Diastolic blood pressure 68 mm[Hg] Jake Fe DO Work Phone: [facility] 11-18-2024 15:49-0500 Systolic blood pressure 116 mm[Hg] Jake Fe DO Work Phone: [facility] 11-04-2024 14:47-0500 Body mass index (BMI) [Ratio] 27.03 kg/m2 Jake Fe DO Work Phone: [facility] 11-04-2024 14:47-0500 Body weight 87.91 kg Jake Fe DO Work Phone: [facility] 11-04-2024 14:47-0500 Diastolic blood pressure 70 mm[Hg] Jake Fe DO Work Phone: [facility] 11-04-2024 14:47-0500 Systolic blood pressure 120 mm[Hg] Jake Fe DO Work Phone: [facility] 10-22-2024 11:17-0500 Body mass index (BMI) [Ratio] 26.33 kg/m2 Jake Fe DO Work Phone: [facility] 10-22-2024 11:17-0500 Body weight 85.64 kg Jake Fe DO Work Phone: [facility] 10-22-2024 11:17-0500 Diastolic blood pressure 70 mm[Hg] Jake Fe DO Work Phone: [facility] 10-22-2024 11:17-0500 Systolic blood pressure 110 mm[Hg] Jake Fe DO Work Phone: [facility] 09-29-2024 09:25-0500 Body mass index (BMI) [Ratio] 25.8 kg/m2 Jake Fe DO Work Phone: [facility] 09-29-2024 09:25-0500 Body weight 83.92 kg Jake Fe DO Work Phone: [facility] 09-29-2024 09:25-0500 Diastolic blood pressure 72 mm[Hg] Jake Fe DO Work Phone: [facility] 09-29-2024 09:25-0500 Systolic blood pressure 102 mm[Hg] Jake Fe DO Work Phone: [facility] 09-01-2024 11:46-0500 Body mass index (BMI) [Ratio] 24.69 kg/m2 Jake Fe DO Work Phone: [facility] 09-01-2024 11:46-0500 Body weight 80.29 kg Jake Fe DO Work Phone: [facility] 09-01-2024 11:46-0500 Diastolic blood pressure 60 mm[Hg] Jake Fe DO Work Phone: [facility] 09-01-2024 11:46-0500 Systolic blood pressure 100 mm[Hg] Jake Fe DO Work Phone: [facility] 08-03-2024 09:04-0400 Body mass index (BMI) [Ratio] 23.85 kg/m2 Katherine VELAZCO Work Phone: [facility] 08-03-2024 09:04-0400 Body weight 77.56 kg Katherine VELAZCO Work Phone: [facility] 08-03-2024 09:04-0400 Diastolic blood pressure 72 mm[Hg] Katherine VELAZCO Work Phone: [facility] 08-03-2024 09:04-0400 Systolic blood pressure 118 mm[Hg] Katherine VELAZCO Work Phone: [facility] 07-07-2024 09:24-0400 Body mass index (BMI) [Ratio] 22.59 kg/m2 Jake Fe DO Work Phone: [facility] 07-07-2024 09:24-0400 Body weight 73.48 kg Jake Fe DO Work Phone: [facility] 07-07-2024 09:24-0400 Diastolic blood pressure 60 mm[Hg] Jake Fe DO Work Phone: [facility] 07-07-2024 09:24-0400 Systolic blood pressure 110 mm[Hg] Jake Fe DO Work Phone: [facility] 07-04-2022 11:11-0400 Body temperature 99.3 [degF] Bret Manuel DO Work Phone: [facility] [email or web address] 07-04-2022 11:11-0400 Diastolic blood pressure 75 mm[Hg] Bret Manuel DO Work Phone: [facility] [email or web address] 07-04-2022 11:11-0400 Heart rate 63 /min Bret Manuel DO Work Phone: [facility] [email or web address] 07-04-2022 11:11-0400 Respiratory rate 16 /min Bret Manuel DO Work Phone: [facility] [email or web address] 07-04-2022 11:11-0400 SaO2% (BldA) [Mass fraction] 99 % Bret Manuel DO Work Phone: [facility] [email or web address] 07-04-2022 11:11-0400 Systolic blood pressure 141 mm[Hg] Bret Manuel DO Work Phone: [facility] [email or web address] 07-03-2022 09:50-0400 Body height 177.8 cm Bret Manuel DO Work Phone: [facility] [email or web address] 07-03-2022 09:50-0400 Body mass index (BMI) [Ratio] 38.17 kg/m2 Bret Manuel DO Work Phone: [facility] [email or web address] 07-03-2022 09:50-0400 Body weight 120.66 kg Bret Manuel DO Work Phone: [facility] [email or web address] Encounters Encounter Date Encounter Type Care Provider Facility Start: 12-10-2024 End: 12-10-2024 Clinisync Result Encounter Jake Fe DO Work Phone: [facility] External Department Unsolicited Start: 12-10-2024 End: 12-10-2024 Clinisync Result Encounter Jake Fe DO Work Phone: [facility] External Department Unsolicited Start: 12-02-2024 End: 12-02-2024 [...] Mcnulty MD Work Phone: [facility] Comment on above: H/O gastric sleeve [...] 11-11-2024 End: 11-11-2024 ambulatory JAKE R FE [facility] Start: 11-04-2024 End: 11-04-2024 Office outpatient [...] 08-26-2024 Emergency department patient visit ROGER Velázquez [facility] Start: 08-15-2024 End: 08-15-2024 External Result Encounter [...] visit 15 minutes Katherine VELAZCO Work Phone: [facility] Comment on above: Well woman exam with routine gynecological exam; Exposure to STD; Need for maternal serum alpha-protein (MSAFP) screening; Second trimester ; 17 weeks gestation of ; Screening, , for anatomic survey Start: 08-03-2024 End: 08-03-2024 Patient encounter procedure Katherine VELAZCO Work Phone: [facility] Start: 08-03-2024 End: 08-03-2024 ambulatory KATHERINE DE LA TORRE Not Available Start: 07-18-2024 End: 07-18-2024 External Result Encounter Jake Fe DO Work Phone: [facility] External Department Unsolicited Start: 07-18-2024 End: 07-18-2024 External Result Encounter Jake Fe DO Work Phone: [facility] External Department Unsolicited Start: 07-18-2024 End: 07-18-2024 ambulatory JAKE R FE [facility] Start: 07-13-2024 End: 07-13-2024 Orders Only Jake R Fe DO Work Phone: [facility] Comment on above: Hypothyroidism, unsp ecified Start: 07-07-2024 End: 07-07-2024 Bamboo flowsheet Jake Fe DO Work Phone: [facility] Start: 07-07-2024 End: 07-07-2024 Bamboo flowsheet Jake Fe DO Work Phone: [facility] Start: 07-07-2024 End: 07-07-2024 Office outpatient visit 15 minutes Jake Fe DO Work Phone: [facility] Comment on above: 13 weeks gestation o f ; Gastroesophageal reflux in Start: 07-07-2024 End: 07-07-2024 ambulatory JAKE FE Not Available Start: 06-20-2024 End: 06-20-2024 External Result Encounter Jake Fe DO Work Phone: [facility] External Department Unsolicited Start: 06-20-2024 End: 06-20-2024 External Result Encounter Jake Miramontes DO Work Phone: [facility] External Department Unsolicited Start: 06-20-2024 End: 06-20-2024 ambulatory JAKE Velázquez [facility] Start: 06-12-2024 End: 06-12-2024 ambulatory JAKE MIRAMONTES Not Available Start: 06-06-2024 End: 06-06-2024 Emergency department patient visit JAKE Velázquez [facility] Start: 06-06-2024 End: 06-06-2024 ambulatory JAKE Velázquez [facility] Start: 05-26-2024 End: 05-27-2024 Emergency department patient visit ROGER Eber JONAH [facility] Start: 05-14-2024 End: [facility]: 05-11-[facility]24 End: 05-11-2024 ambulatory JAKE Eber [facility] Start: 05-08-2024 End: 05-08-2024 ambulatory JAKE Velázquez [facility] Start: 05-06-2024 End: 05-06-2024 ambulatory JAKE Eber [facility] Start: 05-01-2024 End: 05-01-2024 ambulatory [facility] Start: 04-28-2024 End: 04-28-2024 ambulatory [facility] Start: 02-14-2024 End: 02-14-2024 ambulatory [facility] Start: 2024 End: 2024 ambulatory [facility] Start: 01-18-2024 End: 01-18-2024 ambulatory [facility] Start: 01-03-2024 End: 01-03-2024 ambulatory [facility] Start: 12-21-2023 End: 12-21-2023 ambulatory [facility] Start: 12-18-2023 Orders Only Jake Miramontes DO Work Phone: [facility] Comment on above: 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; Personal history of other diseases of the female genital tract Start: 12-13-2023 End: 12-13-2023 ambulatory [facility] Start: 11-27-2023 End: 11-27-2023 ambulatory [facility] Start: 11-16-2023 End: 11-16-2023 ambulatory [facility] Start: 03-13-2023 End: 03-14-[address] [...] present Start: 04-27-2021 ambulatory Chayo Fofana MD Facility:[facility] Procedures Date Procedure Procedure Detail Performing Clinician [...] 08-15-2024 [facility] of [facility] stimulating [facility] Work Phone: Start: 08-03-2024 URETHRITIS/DISCHARGE PLUS [...] Thyrotropin [Units/v olume] in Serum or Plasma [facility] DO Work Phone: Start: 2023 Microscopic observat ion [Identifier] in Cervix by Cyto stain [facility] DO Work Phone: Start: 2023 Cytp cerv/vag auto t hin layer prep mnl screen Jake Miramontes [employer] Work Phone: Start: 07-04-2022 Basic metabolic pane l calcium total [employer] Work Phone: Start: 07-03-2022 Basic metabolic pane l calcium total Bret Velázquez [employer] Work Phone: Start: 07-03-2022 End: 07-03-2022 Laps gstrc rstrictiv px longitudinal gastrectomy Bret Velázquez [employer] Work Phone: Start: 07-03-2022 Urine test visual color cmprsn meths Bret Velázquez [employer] Work Phone: Start: 04-17-2021 Microscopic observat ion [Identifier] in Cervix by Cyto stain Jake Miramontes [employer] Work Phone: Plan of Treatment Date Care Activity Detail Author Start: 01-25-2028 Screening for malign ant neoplasm of cervix [facility] Start: 2026 Screening for malign ant neoplasm of cervix Pap Smear [facility] Start: 11-20-2025 Adult BMI Screening Adult BMI Screen ing [facility] Start: 11-20-2025 Tobacco Screening Tobacco Screening [facility] Start: 06-06-2025 Adult BMI Screening Adult BMI Screen ing [facility] Start: 05-26-2025 Tobacco Screening Tobacco Screening [facility] Start: 12-30-2024 End: 12-30-2024 Patient encounter procedure 12/30/2024 1:10 PM EST Routine [facility] [address] [place] [id number] Jake Miramontes, DO [facility] [place] [address] [facility] Start: 12-23-2024 End: 12-23-2024 Patient encounter procedure 12/23/2024 11:30 AM EST Routine [facility] [address] [place] [address] Jake Miramontes, DO [address] [place] [address] [facility] Start: 12-16-2024 End: 12-16-2024 Patient encounter procedure 12/16/2024 1:00 PM EST Routine [facility] [address] [place] [phone] Jake Miramontes, DO [address] [place] [address] [facility] Start: 12-02-2024 End: 12-02-2025 [...] 11-01-2024 Adult BMI Screening Adult BMI Screen [facility] Start: 10-22-2024 End: 10-22-2024 Patient encounter [...] mellitus screening Expected: 09/29/2024 (Approximate), Expires: 09/29/2025 [facility] Comment on above: Expected: 09/29/2024 (Approximate), Expires: 09/29/2025 Start: 09-29-2024 End: 09-29-2024 Patient encounter procedure [facility] Comment on above: Arrived Start: 09-01-2024 End: 09-01-2024 Patient encounter procedure [facility] Comment on above: Arrived Start: 09-01-2024 End: 09-01-2024 Professional / ancillary services management 09/01/2024 10:30 AM EST Ancillary Procedure [facility] [address] [place] [phone] [facility] Start: 09-01-2024 End: 09-01-2024 Patient encounter procedure 09/01/2024 9:20 AM EST Routine [facility] [address] [facility] [place] [phone] Jake Miramontes, [address] [place] [address] [facility] Start: 08-03-2024 End: 09-03-2024 Alpha fetoprotein, maternal Alpha fetoprotein, maternal Lab Routine Screening, , for anatomic survey Expected: 08/03/2024 (Approximate), Expires: 09/03/2024 [facility] Work Phone: Comment on above: Expected: 08/03/2024 (Approximate), Expires: 09/03/2024 Start: 08-03-2024 End: 08-03-2025 US for US OB ANATOMY SINGLE W US OB CERVICAL LENGTH Imaging Routine Screening, , for anatomic survey Expected: 08/03/2024 (Approximate), Expires: 08/03/2025 [facility] Comment on above: Expected: 08/03/2024 (Approximate), Expires: 08/03/2025 Start: 08-03-2024 End: 08-03-2024 Patient encounter procedure [facility] Comment on above: Arrived Start: 07-13-2024 End: 07-13-2025 Thyroid profile includes TSH FT4 Thyroid profile includes TSH FT4 Lab Routine Hypothyroidism, unspecified Expected: 07/13/2024, Expires: 07/13/2025 [employer] Work Phone: Comment on above: Expected: 07/13/2024 , Expires: 07/13/2025 Start: 07-07-2024 End: 07-07-2024 Patient encounter procedure [facility] Comment on above: Arrived Start: 06-28-2024 [facility] Start: 04-17-2024 Screening for malign ant neoplasm of cervix Pap Smear [facility] Start: 12-18-2023 End: 12-18-2024 Antimullerian hormone (AMH) Antimullerian hormone (AMH) Lab Routine Female infertility associated with anovulation Personal history of other diseases of the female genital tract Expected: 12/18/2023, Expires: 12/18/2024 [employer] Work Phone: Comment on above: Expected: 12/18/2023 , Expires: 12/18/2024 Start: 12-06-2023 Tobacco Screening Tobacco Screening [facility] Start: 06-28-2023 Influenza vaccination Influenza Vacc ine [facility] Start: 08-07-2022 End: 08-07-2022 Patient encounter procedure 08/07/2022 Office Visit Bariatrics Dottie Diaz, DIGITAL MARKETING ASSOCIATE - DIPLOMA PHARMACY TECHNICIAN [address] [facility] [facility] [address] [place] [phone] Linda Guadalupe Invasive Bariatric Surg Start: 07-12-2022 End: 07-12-2022 Patient encounter procedure 07/12/2022 Office Visit Bariatrics Bret Manuel, [address] [facility] [address] [facility] [address] [place] [address] Linda [facility] Invasive Bariatric Surg Start: 06-28-2022 Influenza vaccination Flu vaccine (# 1) [facility] Start: 2014 Screening for malign ant neoplasm of cervix Pap smear [facility] Start: 01-25-2012 DTaP,Tdap and Td Vaccines (1 - Tdap) DTaP,Tdap and Td Vaccines (1 - Tdap) [facility] Start: 01-25-2012 DTaP/Tdap/Td vaccine (1 - Tdap) DTaP/Tdap/Td vaccine (1 - Tdap) [facility] Start: 2011 Adult BMI Follow Up Plan Adult BMI Follow Up Plan [facility] Start: 2011 Hepatitis C screening Hepatitis C sc reen [facility] Start: 01-25-2008 HIV screening HIV screen [facility] Start: 2005 Depression Screen Depression Screen [facility] Start: 2005 Depression Screening Depression Scre ening [facility] Start: 01-25-2004 DTaP,Tdap and Td Vaccines (6 - Tdap) DTaP,Tdap and Td Vaccines (6 - Tdap) [facility] Start: 1994 Varicella vaccine (1 of 2 - 2-dose childhood series) Varicella vaccine (1 of 2 - 2-dose childhood series) [facility] Start: 1993 COVID-19 Vaccine (#1) COVID-19 Vacci ne (#1) [facility] CHLAMYDIA TRACHOMATI S (GENITO/STI) CHLAMYDIA TRACHOMATIS (GENITO/STI) Lab Routine Exposure to STD Ordered: 08/03/2024 [facility] Comment on above: Ordered: 08/03/2024 Continuous pulse oximetry Pulse oximetry, continuous Respiratory Care Routine Every 4hr until discontinued starting 07/03/2022 [facility] Work Phone: Comment on above: Every 4hr until disc ontinued starting 07/03/2022 Neisseria gonorrhoea e DNA [Presence] in Unspecified specimen by NEGRITO with probe detection Neisseria gonorrhea DNA probe, direct Lab Routine Exposure to STD Ordered: 08/03/2024 [facility] [employer] Comment on above: Ordered: 08/03/2024 Oxygen therapy [[facility] Data Set] Initiate Oxygen Therapy Protocol Respiratory Care Routine As Needed until discontinued starting 07/03/2022 [employer] Phone: Comment on above: As Needed until disc ontinued starting 07/03/2022 Spirometry panel Incentive brea metry Respiratory Care Routine Every 2hr while awake until discontinued starting 07/03/2022 [employer] Phone: Comment on above: Every 2hr while awak e until discontinued starting 07/03/2022 SURESWAB(R) ADVANCED VAGINITIS PLUS, TMA SURESWAB(R) ADVANCED VAGINITIS PLUS, TMA Pathology and Cytology Routine Exposure to STD Ordered: 08/03/2024 [facility] [employer] Comment on above: Ordered: 08/03/2024 Surgical Pathology Surgical Path ology Lab Routine Obesity, unspecified classification, unspecified obesity type, unspecified whether serious comorbidity present Gastroesophageal reflux disease, unspecified whether esophagitis present Release Upon Ordering for 1 Occurrences starting 07/03/2022 [employer] Phone: Comment on above: Release Upon Orderin g for 1 Occurrences starting 07/03/2022 End: 07-03-2022 SURGICAL PATHOLOGY REPORT SURGICAL PATHOLOGY REPORT Lab Routine Once for 1 Occurrences starting 07/03/2022 until 07/03/2022 [employer] Phone: Comment on above: Once for 1 Occurrenc es starting 07/03/2022 until 07/03/2022 Thyrotropin [Units/volume] in Serum or Plasma TSH Lab Routine 08/15/2024 9:17 AM EDT [employer] Work Phone: Immunizations Immunization Date Immunization Notes Care Provider Elver knutson 06-06-2024 RHO(D) immune globul in- IV or IM Jake Miramontes DO Work Phone: [facility] [employer] 07-11-2011 influenza virus vaccine, unspecified formulation Jake Miramontes DO Work Phone: [facility] Payers Date Payer Category Payer Medicaid [id number] 2022 Medicaid [id number] 2021 Unknown [employer] [id number] 2021-Present [phone] [address] [place] [address] [id number] 2021 Unknown 1993 Unknown [id number] 2.16.840.1.883726.3.579.2.196 1993 Unknown [id number] 2.16.840.1.849728.3.579.2.593 1993 Unknown [id number] 2.16.840.1.416152.3.579.2.593 1993 Unknown [id number] 2.16.840.1.544431.3.579.2.593 1993 Unknown [id number] 2.16.840.1.631281.3.579.2.593 1993 Unknown [id number] 2.16.840.1.725139.3.579.2.175 1993 Unknown [id number] 2.16.840.1.160180.3.579.2.1286 1993 Unknown [id number] 2.16.840.1.665864.3.579.2.1286 1993 Unknown [id number] 2.16.840.1.543659.3.579.2.1286 1993 Unknown [id number] 2.16.840.1.046790.3.579.2.1286 1993 Unknown [id number] 2.16.840.1.073460.3.579.2.1285 1993 Unknown [id number] 2.16840.1.436583.3.579.2.1285 1993 Unknown [id number] 2.16840.1.688637.3.579.2.1285 1993 Unknown [id number] 2.16840.1.737005.3.579.2.1285 1993 Unknown [id number] 2.840.1.703309.3.579.2.1285 1993 Unknown [id number] 2.840.1.192313.3.579.2.1285 1993 Unknown [id number] 2.840.1.623028.3.579.2.1285 1993 Unknown [id number] 2.0.1.815932.3.579.2.1285 1993 Unknown [id number] 2.840.1.488868.3.579.2.1285 1993 Unknown [id number] 2.840.1.547083.3.579.2.1285 1993 Unknown [id number] 2.840.1.175940.3.579.2.1285 1993 Unknown [id number] 2840.1.808235.3.579.2.1258 1993 Unknown [id number] 2.840.1.678139.3.579.2.1258 1993 Unknown [id number] 2.840.1.766391.3.579.2.1258 1993 Unknown [id number] 2.16840.1.668804.3.579.2.1258 1993 Unknown [id number] 2.840.1.033903.3.579.2.1258 1993 Unknown [id number] 2.840.1.334292.3.579.2.1259 1993 Unknown [id number] 2.16.840.1.384941.3.579.2.1259 1993 Unknown [id number] 2.16.840.1.997116.3.579.2.1259 1993 Unknown [id number] 2.16.840.1.267814.3.579.2.1259 Social History Date Type Detail Facility Start: 10-26-2017 End: 06-15-2022 Tobacco smoking status [facility] Never smoked tobacco [employer] Start: 10-26-2017 End: 06-15-2022 Tobacco use and exposure Smokeless tobacco non-user [employer] Phone: Start: 07-04-2022 End: 05-26-2024 Alcohol intake Current drinker of alcohol (finding) [employer] Phone: Start: 12-21-2021 History SDOH Alcohol Comment occ [facility] Phone: Start: 1995 Sex Assigned At Not on file B ON [employer] Phone: Start: 06-08-2022 End: 06-18-2022 Exposure to SARS-CoV-2 (event) Not sure [employer] Phone: Start: 07-30-2024 End: 11-04-2024 Alcoholic beverage intake Ex-drinker (finding) [facility] Start: 11-14-2020 End: 06-12-2024 History of Social function [facility] Start: 11-14-2020 End: 06-12-2024 Tobacco use panel [facility] Start: 01-19-2024 Alcohol Comment occasional [facility] Start: 04-20-2024 [facility] Unknown [facility] Start: 08-05-2019 Alcohol [facility]ally [facility] Start: 06-02-2015 Sex Female (finding) [facility] Medical Equipment Procedure Code Equipment Code Equipment Origin al Text Equipment Identifier Dates 1 strip by In Vi tro route Daily Use in the morning prior to breakfast, 1 hour after each meal for a total of 4times daily. [id number] Start: 09-29-2024 End: 11-04-2024 1 each by In Vit ro route Daily Use to check FSBS four times daily [id number] Start: 09-29-2024 End: 09-30-2024 USE 1 EACH TO CH ALESSANDRA GLUCOSE 4 TIMES DAILY [id number] Start: 09-30-2024 End: 11-04-2024 Clinical Notes 02-24-2021 [...] nursing note reviewed. Exam conducted with a outside plant supervisor present. Vitals: Estimated body mass index is [...] kick counts three times a day. Reviewed [facility] ultrasound with pt in detail. Pt to start NST/BPP. Orders Placed This Encounter Procedures POCT urinalysis dipstick manually resulted Follow Up: Patient is to return to office in 2 week for routine OB appointment. Documented by Tamy Collazo LPN on behalf of: Jake Miramontes DO documented in this encounter [facility] 11-20-2024 History of Present illness Narrative REASON FOR CONSULTATION: Suspected ventriculomegaly HISTORY OF PRESENT ILLNESS: Phillip Avalos is a pleasant 29 y.o. G two P0 010. at 32w4d due on Estimated Date of Delivery: 01/11/25 . Patient was seen today due to the following 1. Maternal gastric sleeve procedure. Patient had robotic gastric sleeve procedure performed at [facility] Patient has lost weight. Patient became after [...] positions with working out or riding roller [place] Visual impairment wears glasses PAST OBSTETRICAL HISTORY: OB History 2 Para 0 Term AB 1 Living SAB 1 IAB Ectopic Multiple Live Births SURGICAL HISTORY: Past Surgical History: Procedure Laterality Date CHOLECYSTECTOMY COLONOSCOPY N/A 11/13/2018 Performed by Emanuel Reagan DO at [facility] EGD N/A 11/13/2018 Performed by Emanuel Reagan DO at [facility] LAPAROSCOPIC GASTRIC BANDING ALLERGIES: Allergies Allergen [...] taking: Reported on 11/01/2023), Disp: , Rfl: kjqfvbcx-jpar-DZ-calcium &mins (THERAGRAN-M) 9 mg iron-400 mcg tablet, [...] and the other consultants, we search on [email or web address] and all the available care everywhere epic I did review all the imaging studies of the patient available on EMR, ordered by the primary care physician and the other [employer] consultant HABITS: Patient activity no restrictions, diet [...] patient is in complete care of her library attendant. Patient does not have any future appointment [...] No Have you been seen here at [facility] in a previous ? No Recent ER visits or hospitalizations? No Bring blood sugar log or meter with you today? (Please bring them with you for every visit at [facility]) N/A Flu vaccine (Aug-December)? No Any concerns that you would like me to mention to the provider today? No documented in this encounter [facility] 11-18-2024 History of Present illness Narrative Reason [...] nursing note reviewed. Exam conducted with a outside plant supervisor present. Vitals: Estimated body mass index is [...] Jake Miramontes DO documented in this encounter [facility] 11-04-2024 History of Present illness Narrative [...] nursing note reviewed. Exam conducted with a outside plant supervisor present. Vitals: Estimated body mass index is [...] Jake Miramontes DO documented in this encounter [facility] 10-22-2024 History of Present illness Narrative [...] nursing note reviewed. Exam conducted with a outside plant supervisor present. Vitals: Estimated body mass index is [...] Jake Miramontes DO documented in this encounter [facility] 09-29-2024 History of Present illness Narrative [...] nursing note reviewed. Exam conducted with a outside plant supervisor present. Vitals: Estimated body mass index is [...] Jake Miramontes DO documented in this encounter [facility] 09-01-2024 History of Present illness Narrative [...] nursing note reviewed. Exam conducted with a outside plant supervisor present. Vitals: Estimated body mass index is [...] Jake Miramontes DO documented in this encounter [facility] 08-03-2024 History of Present illness Narrative [...] nursing note reviewed. Exam conducted with a outside plant supervisor present. Vitals: Estimated body mass index is [...] of: MORA Jackson documented in this encounter [facility] 07-07-2024 History of Present illness Narrative [...] nursing note reviewed. Exam conducted with a outside plant supervisor present. Vitals: Estimated body mass index is [...] or undercooked meat, and stay away from [facility]. Patient has been consulted regarding any further do's and don'ts of . Patient voiced understanding and all questions and concerns were answered. Orders Placed This Encounter Procedures POCT urinalysis dipstick manually resulted Follow Up: Patient is to return in 4 weeks for routine OB appointment. Documented by Tamy Collazo LPN on behalf of: Jake Miramontes DO documented in this encounter [facility] 07-04-2022 History of Present illness Narrative [...] or 07/03/22 documented in this encounter [facility] Phone: 07-04-2022 Hospital Discharge instructions Garrett Corcoran DO - 07/04/2022 8:07 AM EDT Discharge Instructions for Bariatric Surgery You had a Laparoscopic Sleeve Gastrectomy (51801) surgery to treat obesity. Recovery from this [...] scheduled appointment, please call the office at [phone]. Call Your Doctor If Any of the [...] 911 immediately. documented in this encounter [facility] Phone: 02-24-2021 Note Chief Complaint Referral for [...] states she had a colonoscopy performed in [facility] in 2018 as well as [...] are mucoid-like in nature N/V/blood/frequency: Positive nausea Yuma Score: Typically she rates it for although up to 6 with blood MELD Score: Andry IV Score: Previous Labs: She states last blood work was done in [place] although I currently do not have the [...] areas. Neurologic: Awake, (more content not included)... [facility] Evaluation note Diagnosis S/P laparoscopic sleeve gastrectomy- Primary Obesity, unspecified classification, unspecified obesity type, unspecified whether serious comorbidity present Gastroesophageal reflux disease, unspecified whether esophagitis present documented in this encounter [facility] Phone: evaluation note* Diagnosis Well woman exam [...] gastric sleeve- Primary documented in [facility] encounter [facility]* Diagnosis Third trimester [...] female genital tract documented in this encounter [facility]* Diagnosis Hypothyroidism, unspecified [facility] filedocumented in this [facility] System[facility]ructionsNot on filedocumented in this encounter [facility] SystemInstructionsNot on filedocumented in this encounter [facility] Summary Purpose Family History No Family History Records FoundNo Family History Records FoundNo Family History Records FoundNo Family History Records FoundNo Family History Records FoundNo Family History Records Found Advance Directives Latest Code Status on File Code Status Date Activated Date Inactivated Comments Full Code 07/03/2022 5:43 PM Additional Source Comments INFORMATION SOURCE (unrecogn ized section and content) DATE CREATED AUTHOR 02/28/2021 [facility] DATE CREATED AUTHOR AUTHOR'S ORGANIZ ATION 04/27/2021 [facility] DATE CREATED AUTHOR AUTHOR'S ORGANIZ ATION 03/14/2023 [facility] DATE CREATED AUTHOR AUTHOR'S ORGANIZ ATION 11/29/2023 [facility] DATE CREATED AUTHOR AUTHOR'S ORGANIZ ATION 11/14/2024 [facility] DATE CREATED AUTHOR AUTHOR'S ORGANIZ ATION 12/04/2024 [facility] d[facility] Specialists EPIC Reason for Visit (unrecogniz ed section and content) Specialty Diagnoses / Procedures Referred By Sis parmar Referred To Contact Diagnoses Obesity, unspecified classification, unspecified obesity type, unspecified whether serious comorbidity present Gastroesophageal reflux disease, unspecified whether esophagitis present OBESITY, GERD Procedures LA LAP, MEHUL RESTRICT PROC, LONGITUDINAL GASTRECTOMY XI ROBOTIC LAPAROSCOPIC GASTRECTOMY SLEEVE, EGD, LIVER BIOPSY - GI SCHEDULED Bret Manuel, DO [address] [address] [facility] [address] [place] [address] Referral ID Status Reason Start Date Expiration Date Visits Re quested Visits Authorized [id number] 1 Reason Comments Routine Visit Reason [...] (Given - Provider: Robert Cobb APRN - SAW STRAIGHTENER) heparin (porcine) injection 5,000 Units (COMPLETED) 5,000 [...] Volume Adjustment - Provider: Robert U Jordyn, DIGITAL MARKETING ASSOCIATE - SAW STRAIGHTENER) 1354 (Stopped - Provider: Donna Trammell RN) [...]
Care Teams (unrecognized sec tion and content) Sql Programmer Relationship Specialty Start Date End Date Jake Miramontes MD [address] [place] [address] PCP - General Obstetrics & Gynecology 06/18/22 Sql Programmer Relationship Specialty Start Date End Date Jake Miramontes DO [address] [place] [address] [place] [address] PCP - General Obstetrics & Gynecology 06/06/24 Sql Programmer Relationship Specialty Start Date End Date Karina Lopez DO [address], [place] [id number] PCP - General Family Medicine 11/01/23 Sql Programmer Relationship Specialty Start Date End Date Jake Miramontes DO [address] [place] [address] Dr [place] [address] PCP - General Obstetrics & Gynecology 06/06/24 [...] BE BASED ON THE PRIMARY CLINICAL RECORDS. [facility] [address] [facility]. provides no warranty or guarantee of the accuracy or completeness of information in this document.
== END 2024-12-16 21:30 | disposition home or self-care (01) ==
LOC: LAB 21:29
PROVIDERS: Visit Provider Obstetrics & Gynecology
DX: Z34.93 Encounter for supervision of normal pregnancy, unspecified, third trimester (principal); Z3A.36 36 weeks gestation of pregnancy
CPT/HCPCS: 36415; 87081

== ENCOUNTER 2024-12-23 00:26 | Outpatient (OUT) | payer MEDICAID, SELFPAY ==
--- NOTE | 2024-12-23 | US_ITS ---
[address] [address] Patient Name: SKYLER NORIEGA MRN: [id number] date: 1995 Sex: F Assigned Patient Location: [facility] Current Patient Location: Accession/Order Number: [id number] Exam Date: 12/23/2024 19:07 Report Date: 12/23/2024 19:09 At the request of: GERALDINE HOLLIDAY DO Procedure: US OB growth Exam: Growth ultrasound. Reason for exam: Excessive growth. COMPARISON: Scrotal ultrasound 10/15/2024. TECHNIQUE: Transabdominal imaging of the gravid uterus was obtained. FINDINGS: Single live intrauterine measuring 39 weeks 6 days by anatomic measurements. Head and abdominal circumference is greater than 97th percentile. Estimated weight is 4027 g which is greater than 97th percentile. JOHN is normal at 10.26 cm. heart rate is 132 bpm. position is cephalic at time of scanning. US/US OB growth IMPRESSION: Single live intrauterine 39 weeks 6 days by anatomic measurements. Impression dictated by: Robert Ku Jr., D.O.12/23/2024 7:09 PM Dictation Location: [facility] Electronically authenticated by: [id number] Y Date: 12/23/2024 19:09
--- NOTE | 2024-12-23 | US_ITS ---
[address] [address] Patient Name: SKYLER NORIEGA MRN: [id number] date: 1995 Sex: F Assigned Patient Location: [facility] Current Patient Location: Accession/Order Number: [id number] Exam Date: 12/23/2024 19:02 Report Date: 12/23/2024 19:06 At the request of: GERALDINE HOLLIDAY DO Procedure: US OB BPP w non-stress Exam: Biophysical profile. Reason for exam: Excessive growth. COMPARISON: BPP 12/17/2024. TECHNIQUE: Transabdominal imaging of the gravid uterus was obtained. FINDINGS: The chemistry faculty member reports a BPP of 8 out of 8. heart rate 132 bpm. JOHN is normal at 10.3 cm. US/US OB BPP w non-stress IMPRESSION: BPP 8 out of 8. Impression dictated by: Robert Ku Jr., D.O.12/23/2024 7:06 PM Dictation Location: [facility] Electronically authenticated by: [id number] Y Date: 12/23/2024 19:06
--- OUTSIDE RECORDS SUMMARY | 2024-12-23 00:29 | XMS_ITS | CCD ---
Author Organization [facility] Care Team Providers Care Automobile Service Advisor Name Role Phone Ct LEAL, Chayo Mina [...] REQUEST, NONE LISTED Primary Care Unavaila ble [place], DR NATALIE Yung Consulting Unavailable FE ., DR CHANDLER Attending Unavailable FE ., DR CHANDLER Consulting Unavailable REQUEST, DR NONE LISTED Consulting Unavaila BRET Way Attending Unavailable BRET WETZEL Admitting Unavailable JAKE MIRAMONTES Primary Care Unavailable [...] Fe DO, Jake R Primary Care Provider [facility] DO Karina K Primary Care Provider FE, JAKE Attending Unavailable FE, JAKE Attending Unavailable FE, JAKE Attending Unavailable KATHERINE BRIDGES Attending Unavailable FE, JAKE Attending Unavailable FE, JAKE Attending Unavailable FE, JAKE Attending Unavailable FE, JAKE Attending Unavailable FE, JAKE Attending Unavailable Allergies Allergy Classification Reported Allergen(s) Allergy Type Date of Onset Reaction(s) Facility (5 sources) Latex; Translations: [LATEX] Propensity to adverse reactions to drug 09-22-20 [facility] (20 sources) Sulfamethoxazole / Trimethoprim; Translations: [SULFAMETHOXAZOLE-T RIMETHOPRIM] Drug Allergy 07-02-20 17 Saida HENAO [facility] Work Phone: (20 sources) Latex Propensity to [...] Active calcium carbonate 1250 mg oral tablet (20 sources) Start: 09-07-2024 take 1 tablet by [...] Active ferrous sulfate 325 mg oral tablet (20 sources) Start: 11-03-2024 End: 11-05-2025 take 1 [...] tablet (500 mg total) before bedtime. Active tellpvzk-lseu-HM-calcium &mins (THERAGRAN-M) 9 mg iron-400 mcg tablet (3 sources) esbxkhmn-fgkw-KF -calcium &mins (THERAGRAN-M) 9 mg iron-400 mcg tablet Take 1 tablet by mouth in the morning. Active ydohtkxm-pbfq-RX -calcium &mins (THERAGRAN-M) 9 mg iron-400 mcg [...] unspecified] Onset: 4 Chronic Other complications of (4 sources) Excessive growth affecting management of mother; [...] [34 weeks gestation of ] 12-02-2024 Episodic Residual codes; unclassified (2 sources) Gestation period, 36 weeks; Translations: [36 weeks gestation of ] 12-16-2024 Episodic Thyroid disorders (4 sources) Autoimmune thyroiditis; [...] Test Name Value Interpretation Reference Range Facility ALL MISCELLANEOUS TESTon MISCELLANEOUS TEST COMMENT . [facility] Comment on above: Test Ordered: [id number] Strep Gp B Culture+Rflx Strep Gp B Culture+Rflx Negative CB Reference Range: Negative Centers for Disease Control and Prevention (CDC) and [place] Congress of Obstetricians and Gynecologists (ACOG) guidelines for prevention of group B streptococcal (GBS) disease specify co-collection of a vaginal and rectal swab specimen to maximize sensitivity of GBS detection. Per the CDC and ACOG, swabbing both the lower vagina and rectum substantially increases the yield of detection compared with sampling the vagina alone. Penicillin G, ampicillin, or cefazolin are indicated for intrapartum prophylaxis of GBS colonization. Reflex susceptibility testing should be performed prior to use of clindamycin only on GBS isolates from penicillin- allergic women who are considered a high risk for anaphylaxis. Treatment with vancomycin without additional testing is warranted if resistance to clindamycin is noted. Performed at: - [address] [id number] Metal Baler: Aung Adams PhD, Phone: [phone] GROUP B STREP 516221 CULTURE, GROUP B STREP WITH SUSCEPTIBILITY [facility] OB BPP W NON-STRESS on 12-17-[address] [address] Ultrasound Report Signed Patient: PHILLIP NORIEGA MR#: [id number] : 1995 Acct:[id number] Age/Sex: 29 / F ADM Date: 12/16/24 Loc: US Attending Dr: Jake Miramontes D.O. Ordering Physician: Jake Miramontes D.O. Date of Service: 12/16/24 Procedure(s): US OB BPP w non-stress Accession Number(s): [id number] cc: Jake Miramontes D.O.; Physician,Non-Staff Patti The [place] [address] Patient Name: PHILLIP NORIEGA MRN: [facility]:[id number] date: 1995 Sex: F Assigned Patient Location: [facility] Current Patient Location: Accession/Order Number: [id number] Exam Date: 12/17/2024 10:08 Report Date: 12/17/2024 10:11 At the request of: JAKE MIRAMONTES DO Procedure: US OB BPP w non-stress BIOPHYSICAL PROFILE: CLINICAL INFORMATION: Excessive growth O36.60x0 COMPARISON: 12/10/2024 There is a fetus in cephalic presentation. Reported gestational age is 36 weeks 2 days. The heart rate [id number] beats per minute. FINDINGS: TONE: 1 or more episodes of activity extension and flexion of extremity or opening and closing of the hand [Y] 2/2 GROSS BODY MOVEMENTS: 3 or more discrete body or limb movements [Y] 2/2 BREATHING MOVEMENTS: 1 or more episodes of breathing lasting at least 30 seconds [Y] 2/2 JOHN: A single deepest vertical pocket of amniotic fluid greater than 2 cm [Y] 2/2 JOHN: 11.3 cm This is within normal range Total score: 8/8 US/US OB BPP w non-stress IMPRESSION: NORMAL BIOPHYSICAL PROFILE. Impression dictated by: Tamy Jiménez M.D.12/17/2024 10:11 AM Dictation Location: [place] [address] Electronically authenticated by: [id number] Y Date: 12/17/2024 10:11 Dictated By: Tamy Jiménez M.D. Signed By: 12/17/24 1237 DD/ 1011 TD/TT: Wood Cabinetmaker: [facility] Radiology, Radiologist, - 12/17/2024 [place] [address] Ultrasound Report Signed Patient: PHILLIP NORIEGA MR#: [id number] : 1995 Acct:[id number] Age/Sex: 29 / F ADM Date: 12/16/24 Loc: US Attending Dr: Jake Miramontes D.O. Ordering Physician: Jake Miramontes D.O. Date of Service: 12/16/24 Procedure(s): US OB BPP w non-stress Accession Number(s): [id number] cc: Jake Miramontes D.O.; Physician,Non-Staff Patti The [place] [address] Patient Name: PHILLIP NORIEGA MRN: [facility]:[id number] date: 1995 Sex: F Assigned Patient Location: [facility] Current Patient Location: Accession/Order Number: [id number] Exam Date: 12/17/2024 10:08 Report Date: 12/17/2024 10:11 At the request of: JAKE MIRAMONTES DO Procedure: US OB BPP w non-stress BIOPHYSICAL PROFILE: CLINICAL INFORMATION: Excessive growth O36.60x0 COMPARISON: 12/10/2024 There is a fetus in cephalic presentation. Reported gestational age is 36 weeks 2 days. The heart rate [id number] beats per minute. FINDINGS: TONE: 1 or more episodes of activity extension and flexion of extremity or opening and closing of the hand [Y] 2/2 GROSS BODY MOVEMENTS: 3 or more discrete body or limb movements [Y] 2/2 BREATHING MOVEMENTS: 1 or more episodes of breathing lasting at least 30 seconds [Y] 2/2 JOHN: A single deepest vertical pocket of amniotic fluid greater than 2 cm [Y] 2/2 JOHN: 11.3 cm This is within normal range Total score: 8/8 US/US OB BPP w non-stress IMPRESSION: NORMAL BIOPHYSICAL PROFILE. Impression dictated by: Tamy Jiménez M.D.12/17/2024 10:11 AM Dictation Location[facility] Electronically authenticated by: [id number] Y Date: 12/17/2024 10:11 Dictated By: Tamy Jiménez M.D. Signed By: 12/17/24 1237 DD/ 1011 TD/TT: Wood Cabinetmaker: [facility] Radiology Study observation (narrative) [facility] US OB BPP W NON-STRESS Ordered By: Radiologist Radiology on 12-17-2024 [facility] Work Phone: Urinalysis macro (dipstick) panel (U)on 12-16-2024 Bilirubin, UA Negative Negative - 4(70) +++ mg/dL [facility] Blood, UA Negative Negative - 50 Nathanael/mcL [facility] Clarity, UA Clear [facility] Color, UA Ammy [facility] Glucose, UA Negative Negative - 2000(110) ++++ mg/dL [facility] Interpretation and review of laboratory results Abnormal [facility] Ketones, UA Negative Negative - 160(16) ++++ mg/dL [facility] Leukocytes, UA Positive Negative - 500+++ Annie/mcL [facility] Comment on above: small Nitrite, UA Negative Negative - Positive [facility] pH, UA 5.5 5 - 9 [facility] Protein, UA Trace Negative - 2000(20) ++++ mg/dL [facility] Spec Grav, UA 1.025 1 - 1.03 [facility] Urobilinogen, UA 0.2 0.2 - 12 mg/dL [facility] US OB BPP W NON-STRESS on 12-10-2024 [place] [address] Ultrasound Report Signed Patient: PHILLIP NORIEGA MR#: [id number] : 1995 Acct:[id number] Age/Sex: 29 / F ADM Date: 12/10/24 Loc: [facility] 250-[address]: Jake Miramontes D.O. Ordering Physician: Jake Miramontes D.O. Date of Service: 12/10/24 Procedure(s): US OB BPP w non-stress Accession Number(s): [id number] cc: Jake Miramontes D.O.; Physician,Non-Staff M.Charlee The [address] [place] [id number] Patient Name: PHILLIP NORIEGA MRN: [facility]:[id number] date: 1995 Sex: F Assigned Patient Location: [facility] Current Patient Location: [facility] Accession/Order Number: [id number] Exam Date: 12/10/2024 10:46 Report Date: 12/10/2024 [...] profile score: 8 Electronically authenticated by: MARIBELL LYNN Date: 12/10/2024 11:25 Dictated By: Maribell Lynn M.D. Signed By: 12/10/24 1128 DD/ 1125 TD/TT: Wood Cabinetmaker: [facility] Radiology, Radiologist, MD - 12/10/2024 [place] [address] Ultrasound Report Signed Patient: PHILLIP NORIEGA MR#: [id number] : 1995 Acct:[id number] Age/Sex: 29 / F ADM Date: 12/10/24 Loc: [facility] 250-[address]: Jake Miramontes D.O. Ordering Physician: Jake Miramontes D.O. Date of Service: 12/10/24 Procedure(s): US OB BPP w non-stress Accession Number(s): [id number] cc: Jake Miramontes D.O.; Physician,Non-Staff Patti The [place] [id number] Patient Name: PHILLIP NORIEGA MRN: [facility]:[id number] date: 1995 Sex: F Assigned Patient Location: [facility] Current Patient Location: [facility] Accession/Order Number: [id number] Exam Date: 12/10/2024 10:46 Report Date: 12/10/2024 [...] profile score: 8 Electronically authenticated by: MARIBELL LYNN Date: 12/10/2024 11:25 Dictated By: Maribell Lynn M.D. Signed By: 12/10/24 1128 DD/ 1125 TD/TT: Wood Cabinetmaker: [facility] Radiology Study observation (narrative) [facility] US OB BPP W NON-STRESS Ordered By: Radiologist Radiology on 12-10-2024 [facility] Work Phone: Urinalysis macro (dipstick) panel (U)on 12-02-2024 Bilirubin, UA Negative Negative - 4(70) +++ mg/dL [facility] Blood, UA Negative Negative - 50 Nathanael/mcL [facility] Clarity, UA Clear [facility] Color, UA Yellow [facility] Glucose, UA Negative Negative - 2000(110) ++++ mg/dL [facility] Interpretation and review of laboratory results Abnormal [facility] Ketones, UA Negative Negative - 160(16) ++++ mg/dL [facility] Leukocytes, UA Trace Negative - 500+++ Annie/mcL [facility] Nitrite, UA Negative Negative - Positive [facility] pH, UA 7 5 - 9 [facility] Protein, UA Trace Negative - 2000(20) ++++ mg/dL [facility] Spec Grav, UA 1.025 1 - 1.03 [facility] Urobilinogen, UA 1.0 0.2 - 12 mg/dL [facility] Urinalysis macro (dipstick) panel (U)on 11-18-2024 Bilirubin, UA Negative Negative - 4(70) +++ mg/dL [facility] Blood, UA Negative Negative - 50 Nathanael/mcL [facility] Clarity, UA Clear [facility] Color, UA Yellow [facility] Glucose, UA Negative Negative - 2000(110) ++++ mg/dL [facility] Interpretation and review of laboratory results Abnormal [facility] Ketones, UA Negative Negative - 160(16) ++++ mg/dL [facility] Leukocytes, UA Trace Negative - 500+++ Annie/mcL [facility] Nitrite, UA Negative Negative - Positive [facility] pH, UA 6.5 5 - 9 [facility] Protein, UA Negative Negative - 1999(20) ++++ mg/dL [facility] Spec Grav, UA 1.025 1 - 1.03 [facility] Urobilinogen, UA 0.2 0.2 - 12 mg/dL [facility] CBC AND AUTO DIFFon 11-11-19 25 ABSOLUTE BASOPHIL 0.0 X10E9/L Normal 0.0-0.2 [facility] Comment on above: Performed By: #### 3 8476-8 #### [facility] ([id number]) [address] [place] [address] #### 2839-9 #### [facility] ([id number]) [address], [address] [place] [address] ABSOLUTE NEUTROPHIL 7.2 X10E9/L High 1.5-6.6 [facility] Comment on above: Performed By: #### 3 8476-8 #### [facility] ([id number]) [address] [place] [address] #### 2839-9 #### [facility] ([id number]) [address], [address] [place] [address] Basophils/100 WBC (Bld) 0.3 % Normal [facility] Comment on above: Performed By: #### 3 8476-8 #### [facility] ([id number]) [address] [place] [address] #### 2839-9 #### [facility] ([id number]) [address], [address] [place] [address] Eosinophils (Bld) [#/Vol] 0.3 10*3/uL Normal 0.0-0.4 [facility] Comment on above: Performed By: #### 3 8476-8 #### [facility] ([id number]) [address] [place] [address] #### 2839-9 #### [facility] ([id number]) [address], [address] [place] [address] Eosinophils/100 WBC (Bld) 2.9 % Normal [facility] Comment on above: Performed By: #### 3 8476-8 #### [facility] ([id number]) [address] [place] [address] #### 2839-9 #### [facility] ([id number]) [address], [address] [place] [address] Erythrocyte distribution width (RBC) [Ratio] 12.5 % Normal 11.5-15.0 [facility] Comment on above: Performed By: #### 3 8476-8 #### [facility] ([id number]) [address] [place] [address] #### 2839-9 #### [facility] ([id number]) [address], [address] [place] [address] Hematocrit (Bld) [Volume fraction] 36.8 % Normal 35-47 [facility] Comment on above: Performed By: #### 3 8476-8 #### [facility] ([id number]) [address] [place] [address] #### 2839-9 #### [facility] ([id number]) [address] [place] [address] Hemoglobin (Bld) [Mass/Vol] 12.7 g/dL Normal 11.7-15.5 [facility] Comment on above: Performed By: #### 3 8476-8 #### [facility] ([id number]) [address] [place] [address] #### 2839-9 #### [facility] ([id number]) [address] [place] [address] Lymphocytes (Bld) [#/Vol] 1.9 10*3/uL Normal 1.0-3.5 [facility] Comment on above: Performed By: #### 3 8476-8 #### [facility] ([id number]) [address] [place] [address] #### 2839-9 #### [facility] ([id number]) [address] [place] [address] Lymphocytes/100 WBC (Bld) 18.7 % Normal [facility] Comment on above: Performed By: #### 3 8476-8 #### [facility] ([id number]) [address] [place] [address] 11471 #### 2839-9 #### [facility] ([id number]) [address], [address] [place] [address] MCH (RBC) [Entitic mass] 32.5 pg Normal 27-34 [facility] Comment on above: Performed By: #### 3 8476-8 #### [facility] ([id number]) [address] [place] [address] #### 2839-9 #### [facility] ([id number]) [address], [address] [place] [address] MCHC (RBC) [Mass/Vol] 34.5 g/dL Normal 32-36 [facility] Comment on above: Performed By: #### 3 8476-8 #### [facility] ([id number]) [address] [place] [address] #### 2839-9 #### [facility] ([id number]) [address], [address] [place] [address] MCV (RBC) [Entitic vol] 94 fL Normal 80-100 [facility] Comment on above: Performed By: #### 3 8476-8 #### [facility] ([id number]) [address] [place] [address]606 #### 2839-9 #### [facility] ([id number]) [address] [place] [address] Monocytes (Bld) [#/Vol] 0.6 10*3/uL Normal 0-0.9 [facility] Comment on above: Performed By: #### 3 8476-8 #### [facility] ([id number]) [address] [place] [address]149 #### 2839-9 #### [facility] ([id number]) [address], [address] [place] [address] Monocytes/100 WBC (Bld) 6.4 % Normal [facility] Comment on above: Performed By: #### 3 8476-8 #### [facility] ([id number]) [address] [place] [address] #### 2839-9 #### [facility] ([id number]) [address], [address] [place] [address] Neutrophils/100 WBC (Bld) 71.7 % Normal [facility] Comment on above: Performed By: #### 3 8476-8 #### [facility] ([id number]) [address] [place] [address] 16771 #### 2839-9 #### [facility] ([id number]) [address] [place] [address] Platelet mean volume (Bld) [Entitic vol] 7.3 fL Normal 7-12 [facility] Comment on above: Performed By: #### 3 8476-8 #### [facility] ([id number]) [address] [place] [address]50 #### 2839-9 #### [facility] ([id number]) [address] [place] [address] Platelets (Bld) [#/Vol] 218 10*3/uL Normal 150-450 [facility] Comment on above: Performed By: #### 3 8476-8 #### [facility] ([id number]) [address] [place] [address]196 #### 2839-9 #### [facility] ([id number]) [address] [place] [address] RBC COUNT 3.89 X10E12/L Normal 3.80-5.20 [facility] Comment on above: Performed By: #### 3 8476-8 #### [facility] ([id number]) [address] [place] [address]889 #### 2839-9 #### [facility] ([id number]) [address] [place] [address] WBC (Bld) [#/Vol] 10.1 10*3/uL Normal 4.0-11.0 [facility] Comment on above: Performed By: #### 3 8476-8 #### [facility] ([id number]) [address] [place] [address], [place] [address] #### 2839-9 #### [facility] ([id number]) [address] [place] [address] CBC W Auto Differential pane l (Bld)on 11-11-2024 ABSOLUTE BASOPHIL 0 [facility] Comment on above: PERFORMED AT [facility] [address],[place] [address] Basophils/100 WBC (Bld) 0.3 % [facility] Eosinophils (Bld) [#/Vol] 0.3 10*3/uL [facility] Eosinophils/100 WBC (Bld) 2.9 % [facility] Erythrocyte distribution width (RBC) [Ratio] 12.5 % 11.5 - 15.0 % [facility] Hematocrit (Bld) [Volume fraction] 36.8 % 35 - 47 % [facility] Hemoglobin (Bld) [Mass/Vol] 12.7 g/dL 11.7 - 15.5 g/dL [facility] Interpretation and review of laboratory results Abnormal [facility] Lymphocytes (Bld) [#/Vol] 1.9 10*3/uL [facility] Lymphocytes/100 WBC (Bld) 18.7 % [facility] MCH (RBC) [Entitic mass] 32.5 pg 27 - 34 pg [facility] MCHC (RBC) [Mass/Vol] 34.5 g/dL 32 - 36 g/dL [facility] MCV (RBC) [Entitic vol] 94 fL 80 - 100 fL [facility] Monocytes (Bld) [#/Vol] 0.6 10*3/uL [facility] Monocytes/100 WBC (Bld) 6.4 % [facility] Neutrophils (Bld) [#/Vol] 7.2 10*3/uL High [facility] Neutrophils/100 WBC (Bld) 71.7 % [facility] Platelet mean volume (Bld) [Entitic vol] 7.3 fL 7 - 12 fL [facility] Platelets (Bld) [#/Vol] 218 10*3/uL [facility] RBC (Bld) [#/Vol] 3.89 10*6/uL [facility] WBC corrected for nucl RBC Auto (Bld) [#/Vol] 10.1 [facility] Urinalysis macro (dipstick) panel (U)on 11-04-2024 Bilirubin, UA Negative Negative - 4(70) +++ mg/dL [facility] Blood, UA Negative Negative - 50 Nathanael/mcL [facility] Clarity, UA Clear [facility] Color, UA Yellow [facility] Glucose, UA Negative Negative - 1999(110) ++++ mg/dL [facility] Interpretation and review of laboratory results Abnormal [facility] Ketones, UA Negative Negative - 160(16) ++++ mg/dL [facility] Leukocytes, UA Trace Negative - 500+++ Annie/mcL [facility] Nitrite, UA Negative Negative - Positive [facility] pH, UA 6 5 - 9 [facility] Protein, UA Positive Negative - 1999(20) ++++ mg/dL [facility] Comment on above: trace Spec Grav, UA 1.03 1 - 1.03 [facility] Urobilinogen, UA 0.2 0.2 - 12 mg/dL [facility] Urinalysis macro (dipstick) panel (U)on 10-22-2024 Bilirubin, UA Negative Negative - 4(70) +++ mg/dL [facility] Blood, UA Negative Negative - 50 Nathanael/mcL [facility] Clarity, UA Clear [facility] Color, UA Yellow [facility] Glucose, UA Negative Negative - 1999(110) ++++ mg/dL [facility] Interpretation and review of laboratory results Abnormal [facility] Ketones, UA Negative Negative - 160(16) ++++ mg/dL [facility] Leukocytes, UA Positive Negative - 500+++ Annie/mcL [facility] Comment on above: small Nitrite, UA Negative Negative - Positive [facility] pH, UA 6.5 5 - 9 [facility] Protein, UA Negative Negative - 1999(20) ++++ mg/dL [facility] Spec Grav, UA 1.025 1 - 1.03 [facility] Urobilinogen, UA 1.0 0.2 - 12 mg/dL [facility] Urinalysis macro (dipstick) panel (U)on 09-29-2024 Bilirubin, UA Negative Negative - 4(70) +++ mg/dL [facility] Blood, UA Negative Negative - 50 Nathanael/mcL [facility] Clarity, UA Clear [facility] Color, UA Yellow [facility] Glucose, UA Negative Negative - 1999(110) ++++ mg/dL [facility] Interpretation and review of laboratory results Normal [facility] Ketones, UA Negative Negative - 160(16) ++++ mg/dL [facility] Leukocytes, UA Negative Negative - 500+++ Annie/mcL [facility] Nitrite, UA Negative Negative - Positive [facility] pH, UA 7 5 - 9 [facility] Protein, UA Negative Negative - 1999(20) ++++ mg/dL [facility] Spec Grav, UA 1.025 1 - 1.03 [facility] Urobilinogen, UA 1.0 0.2 - 12 mg/dL [facility] Urinalysis macro (dipstick) panel (U)on 09-01-2024 Bilirubin, UA Negative Negative - 4(70) +++ mg/dL [facility] Blood, UA Negative Negative - 50 Nathanael/mcL [facility] Clarity, UA Clear [facility] Color, UA Yellow [facility] [facility] Glucose, UA Negative Negative - 1999(110) ++++ mg/dL [facility] Interpretation and review of laboratory results Abnormal [facility] Ketones, UA Negative Negative - 160(16) ++++ mg/dL [facility] Leukocytes, UA Trace Negative - 500+++ Annie/mcL [facility] Nitrite, UA Negative Negative - Positive [facility] pH, UA 6 5 - 9 [facility] Protein, UA Negative Negative - 1999(20) ++++ mg/dL [facility] Spec Grav, UA 1.03 1 - 1.03 [facility] Urobilinogen, UA 0.2 0.2 - 12 mg/dL [facility] CBC AND AUTO DIFFon 08-26-20 24 ABSOLUTE BASOPHIL 0.0 X10E9/L Normal 0.0-0.2 [facility] Comment on above: Performed By: #### 3 8476-8 #### [facility] ([id number]) [address] [place] [address], [place] [address] #### 2839-9 #### [facility] ([id number]) [address], [address] [place] [address] ABSOLUTE NEUTROPHIL 5.8 X10E9/L Normal 1.5-6.6 [facility] Comment on above: Performed By: #### 3 8476-8 #### [facility] ([id number]) [address] [place] [address] #### 2839-9 #### [facility] ([id number]) [address], [address] [place] [address] Basophils/100 WBC (Bld) 0.2 % Normal [facility] Comment on above: Performed By: #### 3 8476-8 #### [facility] ([id number]) [address] [place] [address]1681 #### 2839-9 #### [facility] ([id number]) [address], [address] [place] [address] Eosinophils (Bld) [#/Vol] 0.2 10*3/uL Normal 0.0-0.4 [facility] Comment on above: Performed By: #### 3 8476-8 #### [facility] ([id number]) [address] [place] [address]35 #### 2839-9 #### [facility] ([id number]) [address], [address] [place] [address] Eosinophils/100 WBC (Bld) 2.9 % Normal [facility] Comment on above: Performed By: #### 3 8476-8 #### [facility] ([id number]) [address] [place] [address] #### 2839-9 #### [facility] ([id number]) [address], [address] [place] [address] Erythrocyte distribution width (RBC) [Ratio] 13.0 % Normal 11.5-15.0 [facility] Comment on above: Performed By: #### 3 8476-8 #### [facility] ([id number]) [address] [place] [address] 25677 #### 2839-9 #### [facility] ([id number]) [address], [address] [place] [address] Hematocrit (Bld) [Volume fraction] 31.5 % Low 35-47 [facility] Comment on above: Performed By: #### 3 8476-8 #### [facility] ([id number]) [address] [place] [address]159 #### 2839-9 #### [facility] ([id number]) [address] [place] [address] Hemoglobin (Bld) [Mass/Vol] 10.8 g/dL Low 11.7-15.5 [facility] Comment on above: Performed By: #### 3 8476-8 #### [facility] ([id number]) [address] [place] [address] 83111 #### 2839-9 #### [facility] ([id number]) [address] [place] [address] Lymphocytes (Bld) [#/Vol] 1.3 10*3/uL Normal 1.0-3.5 [facility] Comment on above: Performed By: #### 3 8476-8 #### [facility] ([id number]) [address] [place] [address] 18082 #### 2839-9 #### [facility] ([id number]) [address], [address] [place] [address] Lymphocytes/100 WBC (Bld) 16.5 % Normal [facility] Comment on above: Performed By: #### 3 8476-8 #### [facility] ([id number]) [address] [place] [address] 99233 #### 2839-9 #### [facility] ([id number]) [address], [address] [place] [address] MCH (RBC) [Entitic mass] 32.6 pg Normal 27-34 [facility] Comment on above: Performed By: #### 3 8476-8 #### [facility] ([id number]) [address] [place] [address] 13045 #### 2839-9 #### [facility] ([id number]) [address] [facility] [place] [address] MCHC (RBC) [Mass/Vol] 34.4 g/dL Normal 32-36 [facility] Comment on above: Performed By: #### 3 8476-8 #### [facility] ([id number]) [address] [place] [address] 72487 #### 2839-9 #### [facility] ([id number]) [address], [address] [place] [address] MCV (RBC) [Entitic vol] 95 fL Normal 80-100 [facility] Comment on above: Performed By: #### 3 8476-8 #### [facility] ([id number]) [address] [place] [address] 20361 #### 2839-9 #### [facility] ([id number]) [address], [address] [place] [address] Monocytes (Bld) [#/Vol] 0.6 10*3/uL Normal 0-0.9 [facility] Comment on above: Performed By: #### 3 8476-8 #### [facility] ([id number]) [address] [place] [address] 26380 #### 2839-9 #### [facility] ([id number]) [address], [address] [place] [address] Monocytes/100 WBC (Bld) 8.0 % Normal [facility] Comment on above: Performed By: #### 3 8476-8 #### [facility] ([id number]) [address] [place] [address] 88925 #### 2839-9 #### [facility] ([id number]) [address] [place] [address] Neutrophils/100 WBC (Bld) 72.4 % Normal [facility] Comment on above: Performed By: #### 3 8476-8 #### [facility] ([id number]) [address] [place] [address] 89970 #### 2839-9 #### [facility] ([id number]) [address], [address] [place] [address] Platelet mean volume (Bld) [Entitic vol] 6.7 fL Low 7-12 [facility] Comment on above: Performed By: #### 3 8476-8 #### [facility] ([id number]) [address] [place] [address] 78731 #### 2839-9 #### [facility] ([id number]) [address] [place] [address] Platelets (Bld) [#/Vol] 188 10*3/uL Normal 150-450 [facility] Comment on above: Performed By: #### 3 8476-8 #### [facility] ([id number]) [address] [place] [address] 65311 #### 2839-9 #### [facility] ([id number]) [address], [address] [place] [address] RBC COUNT 3.33 X10E12/L Low 3.80-5.20 [facility] Comment on above: Performed By: #### 3 8476-8 #### [facility] ([id number]) [address] [place] [address] 73709 #### 2839-9 #### [facility] ([id number]) [address], [address] [place] [address] WBC (Bld) [#/Vol] 8.0 10*3/uL Normal 4.0-11.0 [facility] Comment on above: Performed By: #### 3 8476-8 #### [facility] ([id number]) [address] [place] [address] 76542 #### 2839-9 #### [facility] ([id number]) [address], [address] [place] [address] COMPREHENSIVE METABOLIC PANE [facility] 08-26-2024 Albumin [Mass/Vol] 2.9 g/dL Low 3.2-5.3 [facility] Comment on above: Performed By: #### 3 8476-8 #### [facility] ([id number]) [address] [place] [address] 65257 #### 2839-9 #### [facility] ([id number]) [address], [address] [place] [address] ALP [Catalytic activity/Vol] 34 U/L Low 39-130 [facility] Comment on above: Performed By: #### 3 8476-8 #### [facility] ([id number]) [address] [place] [address] 48957 #### 2839-9 #### [facility] ([id number]) [address], [address] [place] [address] ALT [Catalytic activity/Vol] 45 U/L High 0-31 [facility] Comment on above: Performed By: #### 3 8476-8 #### [facility] ([id number]) [address] [place] [address] 70069 #### 2839-9 #### [facility] ([id number]) [address], [address] [place] [address] Anion gap [Moles/Vol] 5 mmol/L Normal 5-15 [facility] Comment on above: Performed By: #### 3 8476-8 #### [facility] ([id number]) [address] [place] [address] 89029 #### 2839-9 #### [facility] ([id number]) [address], [address] [place] [address] AST [Catalytic activity/Vol] 44 U/L High 0-41 [facility] Comment on above: Performed By: #### 3 8476-8 #### [facility] ([id number]) [address] [place] [address] 22240 #### 2839-9 #### [facility] ([id number]) [address], [address] [place] [address] Bilirubin [Mass/Vol] 0.4 mg/dL Normal 0.3-1.2 [facility] Comment on above: Performed By: #### 3 8476-8 #### [facility] ([id number]) [address] [place] [address] 43314 #### 2839-9 #### [facility] ([id number]) [address], [address] [place] [address] Calcium [Mass/Vol] 8.4 mg/dL Low 8.5-10.5 [facility] Comment on above: Performed By: #### 3 8476-8 #### [facility] ([id number]) [address] [place] [address] 20337 #### 2839-9 #### [facility] ([id number]) [address], [address] [place] [address] Chloride [Moles/Vol] 105 mmol/L Normal 98-109 [facility] Comment on above: Performed By: #### 3 8476-8 #### [facility] ([id number]) [address] [place] [address] 39589 #### 2839-9 #### [facility] ([id number]) [address] [address] [place] [address] CO2 [Moles/Vol] 23 mmol/L Normal 22-32 [facility] Comment on above: Performed By: #### 3 8476-8 #### [facility] ([id number]) [address] [place] [address] 67037 #### 2839-9 #### [facility] ([id number]) [address], [address] [place] [address] Creatinine [Mass/Vol] 0.68 mg/dL Normal 0.40-1.00 [facility] Comment on above: Result Comment: METH OD TRACEABLE TO IDMS STANDARD Performed By: #### 3 8476-8 #### [facility] ([id number]) [address] [place] [address] 52656 #### 2839-9 #### [facility] ([id number]) [address], [address] [place] [address] eGFR (CKD-EPI) NON-RACE DEPENDENT >90 Normal >59 [facility] Comment on above: Result Comment: Reported eGFR is based on the CKD-EPI 1 equation that does not use a race coefficient. Performed By: #### 3 8476-8 #### [facility] ([id number]) [address] [place] [address], [place] [address] #### 2839-9 #### [facility] ([id number]) [address], [address] [place] [address] Glucose [Mass/Vol] 80 mg/dL Normal 65-99 [facility] Comment on above: Performed By: #### 3 8476-8 #### [facility] ([id number]) [address] [place] [address] 91882 #### 2839-9 #### [facility] ([id number]) [address] [place] [address] Potassium [Moles/Vol] 3.9 mmol/L Normal 3.5-5.0 [facility] Comment on above: Performed By: #### 3 8476-8 #### [facility] ([id number]) [address] [place] [address] 86045 #### 2839-9 #### [facility] ([id number]) [address] [place] [address] Protein [Mass/Vol] 5.8 g/dL Low 6.0-8.0 [facility] Comment on above: Performed By: #### 3 8476-8 #### [facility] ([id number]) [address] [place] [address] 73123 #### 2839-9 #### [facility] ([id number]) [address] [place] [address] Sodium [Moles/Vol] 133 mmol/L Low 134-146 [facility] Comment on above: Performed By: #### 3 8476-8 #### [facility] ([id number]) [address] [place] [address] 44154 #### 2839-9 #### [facility] ([id number]) [address] [place] [address] Urea nitrogen [Mass/Vol] 15 mg/dL Normal 5-23 [facility] Comment on above: Performed By: #### 3 8476-8 #### [facility] ([id number]) [address] [place] [address] 48672 #### 2839-9 #### [facility] ([id number]) [address] [facility] [place] [address] LIPASEon 08-26-2024 Lipase [Catalytic activity/Vol] 36 U/L Normal 17-40 [facility] Comment on above: Performed By: #### 3 8476-8 #### [facility] ([id number]) [address] [place] [address] 90010 #### 2839-9 #### [facility] ([id number]) [address] [address] [place] [address] MAGNESIUMon 08-26-2024 Magnesium [Mass/Vol] 1.8 mg/dL Normal 1.8-2.6 [facility] Comment on above: Performed By: #### 3 8476-8 #### [facility] ([id number]) [address] [place] [address] 48682 #### 2839-9 #### [facility] ([id number]) [address] [place] [address] Troponin I.cardiac High sens itivity method [Mass/Vol]on 08-26-2024 TROPONIN I, HIGH SENSITIVITY <2 Normal <16 [facility] Comment on above: Performed By: #### 3 8476-8 #### [facility] ([id number]) [address] [place] [address] 65718 #### 2839-9 #### [facility] ([id number]) [address] [place] [address] THYROID PROFILEon 08-15-2024 Free T4 [Mass/Vol] 0.89 ng/dL Normal 0.61-1.60 [facility] Comment on above: Performed By: #### 3 8476-8 #### [facility] ([id number]) [address] [place] [address], [place] [address] #### 2839-9 #### [facility] ([id number]) [address] [facility], [address] [place] [address] TSH 3.03 uIU/mL Normal 0.49-4.67 [facility] Comment on above: Performed By: #### 3 8476-8 #### [facility] ([id number]) [address] [facility], [place] [address] #### 2839-9 #### [facility] ([id number]) [address] [facility] [place] [address] URETHRITIS/DISCHARGE PLUS VA GINITIS (HTRX)on 08-04-2024 ATOPOBIUM VAGINAE 0.000 [facility] ATOPOBIUM VAGINAE Not detected [facility] BVAB 2,3 (BACTERIAL VAGINOSIS ASSOCIATED BACTERIA 2, 3); MOBILUNCUS SPP 0.000 [facility] BVAB 2,3 (BACTERIAL VAGINOSIS ASSOCIATED BACTERIA 2, 3); MOBILUNCUS SPP Not detected [facility] Healthcare RAZIA ALBICANS, PARAPSILOSIS, TROPICALIS 0.000 [facility] Healthcare RAZIA ALBICANS, PARAPSILOSIS, TROPICALIS Not detected [...] S Healthcare NEISSERIA GONORRHOEAE Not detected N [facility] TRICHOMONAS VAGINALIS 0.000 [facility] TRICHOMONAS VAGINALIS Not detected N [facility] Urinalysis macro (dipstick) panel (U)on 08-03-2024 Bilirubin, UA Negative Negative - 4(70) +++ mg/dL [facility] Blood, UA Negative Negative - 50 Nathanael/mcL [facility] Clarity, UA Clear [facility] Color, UA Yellow [facility] Glucose, UA Negative Negative - 1999(110) ++++ mg/dL [facility] Interpretation and review of laboratory results Normal [facility] Ketones, UA Negative Negative - 160(16) ++++ mg/dL [facility] Leukocytes, UA Negative Negative - 500+++ Annie/mcL [facility] Nitrite, UA Negative Negative - Positive [facility] pH, UA 7.0 5 - 9 [facility] Protein, UA Negative Negative - 1999(20) ++++ mg/dL [facility] Spec Grav, UA 1.020 1 - 1.03 [facility] Urobilinogen, UA 1.0 0.2 - 12 mg/dL [facility] THYROID PROFILEon 07-18-2024 Free T4 [Mass/Vol] 0.80 ng/dL Normal 0.61-1.60 [facility] Comment on above: Performed By: #### 3 8476-8 #### [facility] ([id number]) [address] [place] [address] 64953 #### 2839-9 #### [facility] ([id number]) [address] [facility] [place] [address] TSH 3.22 uIU/mL Normal 0.49-4.67 [facility] Comment on above: Performed By: #### 3 8476-8 #### [facility] ([id number]) [address] [place] [address] 20430 #### 2839-9 #### [facility] ([id number]) [address] [place] [address] TSHon 07-18-2024 Free T4 [Mass/Vol] 0.80 ng/dL 0.61 - 1. 60 ng/dL [facility] Comment on above: PERFORMED AT [facility] [address] [facility],[place] [address] TSH Qn 3.22 m[IU]/L [facility] Urinalysis macro (dipstick) panel (U)on 07-07-2024 Bilirubin, UA Negative Negative - 4(70) +++ mg/dL [facility] Blood, UA Negative Negative - 50 Nathanael/mcL [facility] Clarity, UA Clear [facility] Color, UA Yellow [facility] Glucose, UA Negative Negative - 1999(110) ++++ mg/dL [facility] Interpretation and review of laboratory results Normal [facility] Ketones, UA Negative Negative - 160(16) ++++ mg/dL [facility] Leukocytes, UA Trace Negative - 500+++ Annie/mcL [facility] Nitrite, UA Negative Negative - Positive [facility] pH, UA 7.0 5 - 9 [facility] Protein, UA Negative Negative - 1999(20) ++++ mg/dL [facility] Spec Grav, UA 1.025 1 - 1.03 [facility] Urobilinogen, UA 0.2 0.2 - 12 mg/dL [facility] TSH ([facility])on 06-20-2024 TSH Qn 2.32 m[IU]/L [facility] Comment on above: PERFORMED AT [facility] [address] [facility],[place] [address] [facility] TSH Qnon 06-20-2024 TSH 2.32 uIU/mL Normal 0.49-4.67 [facility] Comment on above: Performed By: #### 3 8476-8 #### [facility] ([id number]) [address] [place] [address], [place] [address] #### 2839-9 #### [facility] ([id number]) [address] [place] [address] CBC AND AUTO DIFFon 06-06-20 ABSOLUTE BASOPHIL 0.0 X10E9/L Normal 0.0-0.2 [facility] Comment on above: Performed By: #### 3 8476-8 #### [facility] ([id number]) [address] [place] [address] 75095 #### 2839-9 #### [facility] ([id number]) [address] [place] [address] ABSOLUTE NEUTROPHIL 4.8 X10E9/L Normal 1.5-6.6 [facility] Comment on above: Performed By: #### 3 8476-8 #### [facility] ([id number]) [address] [place] [address] 93573 #### 2839-9 #### [facility] ([id number]) [address] [place] [address] Basophils/100 WBC (Bld) 0.3 % Normal [facility] Comment on above: Performed By: #### 3 8476-8 #### [facility] ([id number]) [address] [place] [address] 36271 #### 2839-9 #### [facility] ([id number]) [address] [place] [address] Eosinophils (Bld) [#/Vol] 0.4 10*3/uL Normal 0.0-0.4 [facility] Comment on above: Performed By: #### 3 8476-8 #### [facility] ([id number]) [address] [place] [address] 42742 #### 2839-9 #### [facility] ([id number]) [address] [place] [address] Eosinophils/100 WBC (Bld) 5.5 % Normal [facility] Comment on above: Performed By: #### 3 8476-8 #### [facility] ([id number]) [address] [place] [address] 97103 #### 2839-9 #### [facility] ([id number]) [address] [place] [address] Erythrocyte distribution width (RBC) [Ratio] 13.1 % Normal 11.5-15.0 [facility] Comment on above: Performed By: #### 3 8476-8 #### [facility] ([id number]) [address] [place] [address] 79638 #### 2839-9 #### [facility] ([id number]) [address] [facility] [place] [address] Hematocrit (Bld) [Volume fraction] 32.4 % Low 35-47 [facility] Comment on above: Performed By: #### 3 8476-8 #### [facility] ([id number]) [address] [place] [address] 76417 #### 2839-9 #### [facility] ([id number]) [address] [place] [address] Hemoglobin (Bld) [Mass/Vol] 11.2 g/dL Low 11.7-15.5 [facility] Comment on above: Performed By: #### 3 8476-8 #### [facility] ([id number]) [address] [place] [address] 58972 #### 2839-9 #### [facility] ([id number]) [address] [place] [address] Lymphocytes (Bld) [#/Vol] 1.7 10*3/uL Normal 1.0-3.5 [facility] Comment on above: Performed By: #### 3 8476-8 #### [facility] ([id number]) [address] [place] [address] 86085 #### 2839-9 #### [facility] ([id number]) [address] [place] [address] Lymphocytes/100 WBC (Bld) 21.9 % Normal [facility] Comment on above: Performed By: #### 3 8476-8 #### [facility] ([id number]) [address] [place] [address] 68506 #### 2839-9 #### [facility] ([id number]) [address] [place] [address] MCH (RBC) [Entitic mass] 31.7 pg Normal 27-34 [facility] Comment on above: Performed By: #### 3 8476-8 #### [facility] ([id number]) [address] [place] [address] #### 2839-9 #### [facility] ([id number]) [address], [address] [place] [address] MCHC (RBC) [Mass/Vol] 34.5 g/dL Normal 32-36 [facility] Comment on above: Performed By: #### 3 8476-8 #### [facility] ([id number]) [address] [place] [address] #### 2839-9 #### [facility] ([id number]) [address], [address] [place] [address] MCV (RBC) [Entitic vol] 92 fL Normal 80-100 [facility] Comment on above: Performed By: #### 3 8476-8 #### [facility] ([id number]) [address] [place] [address] #### 2839-9 #### [facility] ([id number]) [address], [address] [place] [address] Monocytes (Bld) [#/Vol] 0.8 10*3/uL Normal 0-0.9 [facility] Comment on above: Performed By: #### 3 8476-8 #### [facility] ([id number]) [address] [place] [address] #### 2839-9 #### [facility] ([id number]) [address], [address] [place] [address] Monocytes/100 WBC (Bld) 10.4 % Normal [facility] Comment on above: Performed By: #### 3 8476-8 #### [facility] ([id number]) [address] [place] [address] #### 2839-9 #### [facility] ([id number]) [address], [address] [place] [address] Neutrophils/100 WBC (Bld) 61.9 % Normal [facility] Comment on above: Performed By: #### 3 8476-8 #### [facility] ([id number]) [address] [place] [address] #### 2839-9 #### [facility] ([id number]) [address], [address] [place] [address] Platelet mean volume (Bld) [Entitic vol] 6.9 fL Low 7-12 [facility] Comment on above: Performed By: #### 3 8476-8 #### [facility] ([id number]) [address] [place] [address] #### 2839-9 #### [facility] ([id number]) [address], [address] [place] [address] Platelets (Bld) [#/Vol] 172 10*3/uL Normal 150-450 [facility] Comment on above: Performed By: #### 3 8476-8 #### [facility] ([id number]) [address] [place] [address] #### 2839-9 #### [facility] ([id number]) [address] [facility], [address] [place] [address] RBC COUNT 3.54 X10E12/L Low 3.80-5.20 [facility] Comment on above: Performed By: #### 3 8476-8 #### [facility] ([id number]) [address] [place] [address] 67803 #### 2839-9 #### [facility] ([id number]) [address] [place] [address], [address] [place] [address] WBC (Bld) [#/Vol] 7.7 10*3/uL Normal 4.0-11.0 [facility] Comment on above: Performed By: #### 3 8476-8 #### [facility] ([id number]) [address] [place] [address] 25112 #### 2839-9 #### [facility] ([id number]) [address] [place] [address], [address] [place] [address] COMPREHENSIVE METABOLIC PANE Augustin 06-06-2024 Albumin [Mass/Vol] 3.2 g/dL Normal 3.2-5.3 [facility] Comment on above: Performed By: #### 3 8476-8 #### [facility] ([id number]) [address] [place] [address] 15863 #### 2839-9 #### [facility] ([id number]) [address] [place] [address], [address] [place] [address] ALP [Catalytic activity/Vol] 38 U/L Low 39-130 [facility] Comment on above: Performed By: #### 3 8476-8 #### [facility] ([id number]) [address] [place] [address] 48555 #### 2839-9 #### [facility] ([id number]) [address], [address] [place] [address] ALT [Catalytic activity/Vol] 54 U/L High 0-31 [facility] Comment on above: Performed By: #### 3 8476-8 #### [facility] ([id number]) [address] [place] [address] 68285 #### 2839-9 #### [facility] ([id number]) [address], [address] [place] [address] Anion gap [Moles/Vol] 1 mmol/L Low 5-15 [facility] Comment on above: Performed By: #### 3 8476-8 #### [facility] ([id number]) [address] [place] [address] 00273 #### 2839-9 #### [facility] ([id number]) [address], [address] [place] [address] AST [Catalytic activity/Vol] 35 U/L Normal 0-41 [facility] Comment on above: Performed By: #### 3 8476-8 #### [facility] ([id number]) [address] [place] [address] 08428 #### 2839-9 #### [facility] ([id number]) [address], [address] [place] [address] Bilirubin [Mass/Vol] 0.4 mg/dL Normal 0.3-1.2 [facility] Comment on above: Performed By: #### 3 8476-8 #### [facility] ([id number]) [address] [place] [address] 94013 #### 2839-9 #### [facility] ([id number]) [address], [address] [place] [address] Calcium [Mass/Vol] 8.3 mg/dL Low 8.5-10.5 [facility] Comment on above: Performed By: #### 3 8476-8 #### [facility] ([id number]) [address] [place] [address] 16422 #### 2839-9 #### [facility] ([id number]) [address], [address] [place] [address] Chloride [Moles/Vol] 103 mmol/L Normal 98-109 [facility] Comment on above: Performed By: #### 3 8476-8 #### [facility] ([id number]) [address] [place] [address] 81323 #### 2839-9 #### [facility] ([id number]) [address], [address] [place] [address] CO2 [Moles/Vol] 26 mmol/L Normal 22-32 [facility] Comment on above: Performed By: #### 3 8476-8 #### [facility] ([id number]) [address] [place] [address] 81466 #### 2839-9 #### [facility] ([id number]) [address], [address] [place] [address] Creatinine [Mass/Vol] 0.64 mg/dL Normal 0.40-1.00 [facility] Comment on above: Result Comment: METH OD TRACEABLE TO IDMS STANDARD Performed By: #### 3 8476-8 #### [facility] ([id number]) [address] [place] [address] 89850 #### 2839-9 #### [facility] ([id number]) [address], [address] [place] [address] eGFR (CKD-EPI) NON-RACE DEPENDENT >90 Normal >59 [facility] Comment on above: Result Comment: Reported eGFR is based on the CKD-EPI 2020 equation that does not use a race coefficient. Performed By: #### 3 8476-8 #### [facility] ([id number]) [address] [place] [address] 75330 #### 2839-9 #### [facility] ([id number]) [address], [address] [place] [address] Glucose [Mass/Vol] 79 mg/dL Normal 65-99 [facility] Comment on above: Performed By: #### 3 8476-8 #### [facility] ([id number]) [address] [place] [address] 99954 #### 2839-9 #### [facility] ([id number]) [address], [address] [place] [address] Potassium [Moles/Vol] 3.7 mmol/L Normal 3.5-5.0 [facility] Comment on above: Performed By: #### 3 8476-8 #### [facility] ([id number]) [address] [place] [address] 84190 #### 2839-9 #### [facility] ([id number]) [address], [address] [place] [address] Protein [Mass/Vol] 6.1 g/dL Normal 6.0-8.0 [facility] Comment on above: Performed By: #### 3 8476-8 #### [facility] ([id number]) [address] [place] [address] 68050 #### 2839-9 #### [facility] ([id number]) [address], [address] [place] [address] Sodium [Moles/Vol] 130 mmol/L Low 134-146 [facility] Comment on above: Performed By: #### 3 8476-8 #### [facility] ([id number]) [address] [place] [address] 47498 #### 2839-9 #### [facility] ([id number]) [address] [facility], [address] [place] [address] Urea nitrogen [Mass/Vol] 15 mg/dL Normal 5-23 [facility] Comment on above: Performed By: #### 3 8476-8 #### [facility] ([id number]) [address] [place] [address] 69607 #### 2839-9 #### [facility] ([id number]) [address] [facility], [address] [place] [address] HCG.beta subunit IA 3rd IS Q non 06-06-2024 HCG.beta subunit Qn 438788 m[IU]/mL Normal [facility] [...] neoplasms. Performed By: #### 3 8476-8 #### [facility] ([id number]) [address] [place] [address] 74020 #### 2839-9 #### [facility] ([id number]) [address], [address] [place] [address] URN MACROSCOPIC NURon 2023 BILIRUBIN CHLOÉ Negative Normal NEG [facility] Comment on above: Performed By: #### 3 8476-8 #### [facility] ([id number]) [address] [place] [address] 17076 #### 2839-9 #### [facility] ([id number]) [address], [address] [place] [address] BLOOD/HGB CHLOÉ Trace Abnormal NEG [facility] Comment on above: Performed By: #### 3 8476-8 #### [facility] ([id number]) [address] [place] [address] 02984 #### 2839-9 #### [facility] ([id number]) [address], [address] [place] [address] GLUCOSE CHLOÉ Negative Normal NEG [facility] Comment on above: Performed By: #### 3 8476-8 #### [facility] ([id number]) [address] [place] [address] 38431 #### 2839-9 #### [facility] ([id number]) [address], [address] [place] [address] KETONES CHLOÉ Negative Normal NEG [facility] Comment on above: Performed By: #### 3 8476-8 #### [facility] ([id number]) [address] [place] [address] 49228 #### 2839-9 #### [facility] ([id number]) [address], [address] [place] [address] LEUKOCYTE ESTERASE CHLOÉ Negative Normal NEG [facility] Comment on above: Performed By: #### 3 8476-8 #### [facility] ([id number]) [address] [place] [address] 91430 #### 2839-9 #### [facility] ([id number]) [address], [address] [place] [address] NITRITE CHLOÉ Negative Normal NEG [facility] Comment on above: Performed By: #### 3 8476-8 #### [facility] ([id number]) [address] [place] [address] 84170 #### 2839-9 #### [facility] ([id number]) [address], [address] [place] [address] PH CHLOÉ 5.0 Normal 5.0-8.5 [facility] Comment on above: Performed By: #### 3 8476-8 #### [facility] ([id number]) [address] [place] [address] 32593 #### 2839-9 #### [facility] ([id number]) [address], [address] [place] [address] PROTEIN CHLOÉ Negative Normal NEG [facility] Comment on above: Performed By: #### 3 8476-8 #### [facility] ([id number]) [address] [place] [address] 81014 #### 2839-9 #### [facility] ([id number]) [address], [address] [place] [address] SPECIFIC GRAVITY CHLOÉ >=1.030 Normal 1.003-1.035 [facility] Comment on above: Performed By: #### 3 8476-8 #### [facility] ([id number]) [address] [place] [address] 67656 #### 2839-9 #### [facility] ([id number]) [address], [address] [place] [address] UROBILINOGEN CHLOÉ 0.2 eu/dL Normal <1.1 [facility] Comment on above: Performed By: #### 3 8476-8 #### [facility] ([id number]) [address] [place] [address] 23178 #### 2839-9 #### [facility] ([id number]) [address], [address] [place] [address] HCG ( test) Ql (U)o n 05-27-2024 Beta HCG ( test) Ql (U) Positive Abnormal NEG [facility] Comment on above: Performed By: #### 3 8476-8 #### [facility] ([id number]) [address] [place] [address] 08577 #### 2839-9 #### [facility] ([id number]) [address], [address] [place] [address] URN MACROSCOPIC NURon 2023 BILIRUBIN CHLOÉ Negative Normal [facility] Comment on above: Performed By: #### 3 5365-6, CMP, 3016-3, 39763-5 #### [facility] ([id number]) [address], [address] [place] [address] BLOOD/HGB CHLOÉ Small Abnormal NEG [facility] Comment on above: Performed By: #### 3 5365-6, CMP, 3016-3, 70080-8 #### [facility] ([id number]) [address], [address] [place] [address] GLUCOSE CHLOÉ Negative Normal NEG [facility] Comment on above: Performed By: #### 3 5365-6, CMP, 3016-3, 72714-5 #### [facility] ([id number]) [address], [address] [place] [address] KETONES CHLOÉ Negative Normal NEG [facility] Comment on above: Performed By: #### 3 5365-6, CMP, 3016-3, 41414-3 #### [facility] ([id number]) [address], [address] [place] [address] LEUKOCYTE ESTERASE CHLOÉ Negative Normal NEG [facility] Comment on above: Performed By: #### 3 5365-6, CMP, 6-3, #### [facility] ([id number]) [address], [address] [place] [address] NITRITE CHLOÉ Negative Normal NEG [facility] Comment on above: Performed By: #### 3 5365-6, CMP, 6-3, #### [facility] ([id number]) [address], [address] [place] [address] PH CHLOÉ 5.5 Normal 5.0-8.5 [facility] Comment on above: Performed By: #### 3 5365-6, [facility], 3015-3, #### [facility] ([id number]) [address], [address] [place] [address] PROTEIN CHLOÉ Negative Normal NEG [facility] Comment on above: Performed By: #### 3 5365-6, [facility], 3015-3, #### [facility] ([id number]) [address], [address] [place] [address] SPECIFIC GRAVITY CHLOÉ >=1.030 Normal 1.003-1.035 [facility] Comment on above: Performed By: #### 3 5365-6, CMP, 3015-3, #### [facility] ([id number]) [address], [address] [place] [address] UROBILINOGEN CHLOÉ 1.0 eu/dL Normal <1.1 [facility] Comment on above: Performed By: #### 3 5365-6, CMP, 3015-3, #### [facility] ([id number]) [address], [address] [place] [address] HCG.beta subunit IA 3rd IS Q non 05-14-2024 [place] [address] m[IU]/mL Normal [facility] Comment on above: Result Comment: [...] nontrophoblastic neoplasms. Performed By: #### 3 5365-6, [facility], 3016-3, 88280-6 #### [facility] ([id number]) [address] [facility], [address] [place] [address] HCG.beta subunit IA 3rd IS Q non 05-11-2024 [place] [address] m[IU]/mL Normal [facility] Comment on above: Result Comment: [...] nontrophoblastic neoplasms. Performed By: #### 3 5365-6, [facility], 6-3, 12118-1 #### [facility] ([id number]) [address], [address] [place] [address] TSH Qnon 05-11-2024 TSH 1.06 uIU/mL Normal 0.49-4.67 [facility] Comment on above: Performed By: #### 3 5365-6, [facility], 6-3, 88618-8 #### [facility] ([id number]) [address], [address] [place] [address] HCG.beta subunit IA 3rd IS Q non 05-08-2024 HCG.beta subunit Qn 6446 m[IU]/mL Normal [facility] Comment on above: Result Comment: NEW [...] nontrophoblastic neoplasms. Performed By: #### 3 5365-6, [facility], 6-3, 43132-5 #### [facility] ([id number]) [address], [address] [place] [address] HCG.beta subunit IA 3rd IS Q non 05-06-2024 HCG.beta subunit Qn 3140 m[IU]/mL Normal [facility] Comment on above: Result Comment: NEW [...] nontrophoblastic neoplasms. Performed By: #### 3 5365-6, [facility], 3016-3, 54186-2 #### [facility] ([id number]) [address] [place] [address], [address] [place] [address] HCG.beta subunit IA 3rd IS Q non 05-01-2024 HCG.beta subunit Qn 560 m[IU]/mL Normal [facility] Comment on above: Result Comment: NEW [...] Performed By: #### 3 5365-6, CMP, 3016-3, 52637-1 #### [facility] ([id number]) [address] [facility] [address] [address] [place] [address] HCG.beta subunit IA 3rd IS Q non 04-28-2024 HCG.beta subunit Qn 159 m[IU]/mL Normal [facility] Comment on above: Result Comment: NEW [...] nontrophoblastic neoplasms. Performed By: #### 3 5365-6, [facility], 6-3, 42650-2 #### [facility] ([id number]) [address] [address] FREE T3on 02-14-2024 Free T3 [Mass/Vol] 3.94 pg/mL High 2.50-3.90 [facility] Comment on above: Performed By: #### 3 5365-6, [facility], 6-3, 37528-0 #### [facility] ([id number]) [address] [facility] [address] [place] [address] THYROID PROFILEon 02-14-2024 Free T4 [Mass/Vol] 0.91 ng/dL Normal 0.61-1.60 [facility] Comment on above: Performed By: #### 3 5365-6, [facility], 6-3, 34084-5 #### [facility] ([id number]) [address] [facility] [address] [place] [address] TSH 0.52 uIU/mL Normal 0.49-4.67 [facility] Comment on above: Performed By: #### 3 5365-6, [facility], 3015-3, #### [facility] ([id number]) [address] [facility], [address] [place] [address] THYROPEROXIDASE ABon 024 TPO Ab Qn 403 [IU]/mL High <10 [facility] Comment on above: Performed By: #### 3 5365-6, [facility], 3015-12, #### [facility] ([id number]) [address] [facility], [address] [place] [address] Thyroid stimulating immunogl obulins Qn (S)on 02-14-2024 TSI See Below Normal [facility] Comment on above: Result Comment: NOTE TEST [...] Clinical correlation is required. Test Performed By: [facility] [employer] [address] [place] [address] [employer]: Eloy Dangelo III, M.D. CLIA #[id number] Performed By: #### 3 5365-6, [facility], 3015-12, 69436-4 #### [facility] ([id number]) [address] [facility], [address] [place] [address] ACUTE HEPATITIS PANELon 12-27 ANTI HCV W/PCR REFLX Non-Reactive Normal NRCT [facility] Comment on above: Result Comment: If recent infection suspected, recommend repeat testing (>2 months). Ugyrud-bj-dnzmwi ratio is <0.80. Performed By: #### 3 5365-6, CMP, 3016-3, 19875-9 #### [facility] ([id number]) [address], [address] [place] [address] HEPATITIS A IGM Non-Reactive Normal NRCT [facility] Comment on above: Performed By: #### 3 5365-6, CMP, 3016-3, 82017-7 #### [facility] ([id number]) [address], [address] [place] [address] HEPATITIS B CORE IGM Negative Normal NEG [facility] Comment on above: Performed By: #### 3 5365-6, CMP, 3016-3, 22280-6 #### [facility] ([id number]) [address], [address] [place] [address] HEPATITIS B SURF AG Negative Normal NEG [facility] Comment on above: Performed By: #### 3 5365-6, CMP, 3016-3, 03143-0 #### [facility] ([id number]) [address], [address] [place] [address] COMPREHENSIVE METABOLIC PANE Augustin 2024 Albumin [Mass/Vol] 3.8 g/dL Normal 3.2-5.3 [facility] Comment on above: Performed By: #### 3 5365-6, CMP, 3016-3, 28546-9 #### [facility] ([id number]) [address], [address] [place] [address] ALP [Catalytic activity/Vol] 48 U/L Normal 39-130 [facility] Comment on above: Performed By: #### 3 5365-6, CMP, 3016-3, 67549-8 #### [facility] ([id number]) [address], [address] [place] [address] ALT [Catalytic activity/Vol] 38 U/L High 0-31 [facility] Comment on above: Performed By: #### 3 5365-6, CMP, 3016-3, 57879-1 #### [facility] ([id number]) [address], [address] [place] [address] Anion gap [Moles/Vol] 9 mmol/L Normal 5-15 [facility] Comment on above: Performed By: #### 3 5365-6, CMP, 3016-3, 29983-1 #### [facility] ([id number]) [address], [address] [place] [address] AST [Catalytic activity/Vol] 32 U/L Normal 0-41 [facility] Comment on above: Performed By: #### 3 5365-6, CMP, 3016-3, 99314-5 #### [facility] ([id number]) [address], [address] [place] [address] Bilirubin [Mass/Vol] 0.9 mg/dL Normal 0.3-1.2 [facility] Comment on above: Performed By: #### 3 5365-6, CMP, 3016-3, #### [facility] ([id number]) [address], [address] [place] [address] Calcium [Mass/Vol] 8.8 mg/dL Normal 8.5-10.5 [facility] Comment on above: Performed By: #### 3 5365-6, CMP, 3016-3, 92859-1 #### [facility] ([id number]) [address], [address] [place] [address] Chloride [Moles/Vol] 104 mmol/L Normal 98-109 [facility] Comment on above: Performed By: #### 3 5365-6, CMP, 3016-3, 72028-1 #### [facility] ([id number]) [address], [address] [place] [address] CO2 [Moles/Vol] 26 mmol/L Normal 22-32 [facility] Comment on above: Performed By: #### 3 5365-6, [place], 6-3, 46555-3 #### [facility] ([id number]) [address], [address] [place] [address] Creatinine [Mass/Vol] 0.64 mg/dL Normal 0.40-1.00 [facility] Comment on above: Result Comment: METH OD TRACEABLE TO IDMS STANDARD Performed By: #### 3 5365-6, [place], 3015-3, #### [facility] ([id number]) [address], [address] [place] [address] eGFR (CKD-EPI) NON-RACE DEPENDENT >90 Normal >59 [facility] Comment on above: Result Comment: Reported eGFR is based on the CKD-EPI 2020 equation that does not use a race coefficient. Performed By: #### 3 5365-6, [place], 3015-3, #### [facility] ([id number]) [address], [address] [place] [address] Glucose [Mass/Vol] 80 mg/dL Normal 65-99 [facility] Comment on above: Performed By: #### 3 5365-6, [place], 3015-3, #### [facility] ([id number]) [address], [address] [place] [address] Potassium [Moles/Vol] 3.7 mmol/L Normal 3.5-5.0 [facility] Comment on above: Performed By: #### 3 5365-6, [place], 3015-3, #### [facility] ([id number]) [address], [address] [place] [address] Protein [Mass/Vol] 6.8 g/dL Normal 6.0-8.0 [facility] Comment on above: Performed By: #### 3 5365-6, CMP, 3016-3, 78032-7 #### [facility] ([id number]) [address], [address] [place] [address] Sodium [Moles/Vol] 139 mmol/L Normal 134-146 [facility] Comment on above: Performed By: #### 3 5365-6, CMP, 3016-3, 74880-3 #### [facility] ([id number]) [address], [address] [place] [address] Urea nitrogen [Mass/Vol] 11 mg/dL Normal 5-23 [facility] Comment on above: Performed By: #### 3 5365-6, CMP, 3016-3, 30915-3 #### [facility] ([id number]) [address], [address] [place] [address] Lipid 1996 panelon 4 Cholesterol [Mass/Vol] 94 mg/dL Low 150-200 [facility] Comment on above: Performed By: #### 3 5365-6, [facility], 6-3, 12858-0 #### [facility] ([id number]) [address], [address] [place] [address] Cholesterol in HDL [Mass/Vol] 43 mg/dL Normal >39 [facility] Comment on above: Result Comment: HDL <40 mg/dL - High Risk HDL > or = 40mg/dL- Desirable HDL >60 mg/dL - Negative Risk Performed By: #### 3 5365-6, CMP, 3016-3, 44296-6 #### [facility] ([id number]) [address], [address] [place] [address] Cholesterol in LDL [Mass/Vol] 39 mg/dL Normal <130 [facility] Comment on above: Result Comment: LDL <100 mg/dL - Desirable LDL >160 mg/dL - High Risk Performed By: #### 3 5365-6, [place], 3016-3, 96718-9 #### [facility] ([id number]) [address], [address] [place] [address] Cholesterol in VLDL [Mass/Vol] 12 mg/dL Normal 0-30 [facility] Comment on above: Performed By: #### 3 5365-6, [place], 3016-3, 97268-2 #### [facility] ([id number]) [address], [address] [place] [address] CHOLESTEROL:HDL 2.2 Normal 1.0-5.0 [facility] Comment on above: Performed By: #### 3 5365-6, [place], 3016-3, 10497-2 #### [facility] ([id number]) [address], [address] [place] [address] Triglyceride [Mass/Vol] 58 mg/dL Normal 27-150 [facility] Comment on above: Performed By: #### 3 5365-6, [place], 3016-3, 48337-0 #### [facility] ([id number]) [address], [address] [place] [address] Mullerian inhibiting substan ce [Mass/Vol]on 2024 ANTI MULLERIAN HORM See Below Normal [facility] Comment on above: Result Comment: NOTE TEST RESULT FLAG UNIT REF.RANGE ------ Anti Mclean Hormone 0.54 L ng/mL 0.58-8.13 Test Performed By: [place] [address] [employer]: Eloy Dangelo III, M.D. CLIA #[id number] Performed By: #### 3 5365-6, [facility], 3015-12, #### [facility] ([id number]) [address] [place] [address] Selenium [Mass/Vol]on 2023 SELENIUM, SER/PLASMA 108.6 ug/L Normal 23.0-190.0 [facility] Comment on above: Result Comment: NOTE [...] developed and its performance characteristics determined by [facility]. It has not been cleared or approved by the [place] Food and Drug Administration. This test was performed in a CLIA certified laboratory and is intended for clinical purposes. Performed By: [facility] [address] [place] [id number] [employer]: Deangelo Rosario MD, PhD CLIA Number: [id number] Performed By: #### 3 5365-6, [facility], 3015-12, #### [facility] ([id number]) [address] [place] [address] THYROID PROFILEon 2024 Free T4 [Mass/Vol] 0.67 ng/dL Normal 0.61-1.60 [facility] Comment on above: Performed By: #### 3 5365-6, [facility], 3015-3, 26580-9 #### [facility] [facility] ([id number]) [address], [address] [place] [address] TSH 2.55 uIU/mL Normal 0.49-4.67 [facility] Comment on above: Performed By: #### 3 5365-6, [facility], 3, 47154-9 #### [facility] ([id number]) [address], [address] [place] [address] VITAMIN E, SER/PLon 01-24-20 VIT E(ALPHA-TOCOPHEROL) 7.6 mg/L Normal 5.5-18.0 [facility] Comment on above: Result Comment: NOTE This test was developed and its performance characteristics determined by [facility]. It has not been cleared or approved by the US Food and Drug Administration. This test was performed in a CLIA certified laboratory and is intended for clinical purposes. Performed By: #### 3 5365-6, [facility], 3, #### [facility] ([id number]) [address], [address] [place] [address] VIT E(GAMMA-TOCOPHEROL) 0.3 mg/L Normal 0.0-6.0 [facility] Comment on above: Result Comment: NOTE Performed By: [facility] [address] [place] [address] [employer]: Deangelo Rosario MD, PhD CLIA Number: [id number] Performed By: #### 3 5365-6, [facility], 3, 42552-1 #### [facility] ([id number]) [address], [address] [place] [address] LIVER PANELon 01-18-2024 Albumin [Mass/Vol] 3.8 g/dL Normal 3.2-5.3 [facility] Comment on above: Performed By: #### 3 5365-6, CMP, 3016-3, 56280-4 #### [facility] ([id number]) [address], [address] [place] [address] ALP [Catalytic activity/Vol] 44 U/L Normal 39-130 [facility] Comment on above: Performed By: #### 3 5365-6, CMP, 3016-3, 34960-6 #### [facility] ([id number]) [address], [address] [place] [address] ALT [Catalytic activity/Vol] 33 U/L High 0-31 [facility] Comment on above: Performed By: #### 3 5365-6, CMP, 3016-3, #### [facility] ([id number]) [address], [address] [place] [address] AST [Catalytic activity/Vol] 30 U/L Normal 0-41 [facility] Comment on above: Performed By: #### 3 5365-6, CMP, 6-3, 75288-1 #### [facility] ([id number]) [address], [address] [place] [address] Bilirubin [Mass/Vol] 0.7 mg/dL Normal 0.3-1.2 [facility] Comment on above: Performed By: #### 3 5365-6, CMP, 6-3, #### [facility] ([id number]) [address], [address] [place] [address] Bilirubin.direct [Mass/Vol] 0.2 mg/dL Normal 0.0-0.4 [facility] Comment on above: Performed By: #### 3 5365-6, CMP, 3016-3, 65848-5 #### [facility] ([id number]) [address], [address] [place] [address] Protein [Mass/Vol] 6.7 g/dL Normal 6.0-8.0 [facility] Comment on above: Performed By: #### 3 5365-6, [facility], 6-3, 61961-4 #### [facility] ([id number]) [address], [address] [place] [address] MAGNESIUMon 01-18-2024 Magnesium [Mass/Vol] 1.7 mg/dL Low 1.8-2.6 [facility] Comment on above: Performed By: #### 3 5365-6, [facility], 6-3, 78872-7 #### [facility] ([id number]) [address], [address] [place] [address] TSH Qnon 01-18-2024 TSH 1.07 uIU/mL Normal 0.49-4.67 [facility] Comment on above: Performed By: #### 3 5365-6, [facility], 3015-3, #### [facility] ([id number]) [address], [address] [place] [address] Vitamin D+Metabolites [Mass/ Vol]on 01-18-2024 VITAMIN D 25 HYD TOT 86.7 ng/mL Normal 30-100 [facility] Comment on above: Result Comment: Vitamin D status 25 [place] Vitamin D Deficiency <20 ng/mL Insufficiency 20-29 ng/mL Sufficiency 30-100 ng/mL Toxicity >100 ng/mL NOTE: A pediatric reference range has not been established by the sales[employer] of this kit. The [place] [employer] recommends a Vitamin D level of = or >20ng/mL in infants and children. Performed By: #### 3 5365-6, [facility], 6-3, 22003-9 #### [facility] ([id number]) [address], [address] [place] [address] US THYROIDon 01-06-2024 US THYROID US THYROID [...] Friend MD on 01/06/2024 6:53 AM Normal [facility] FREE T3on 01-03-2024 Free T3 [Mass/Vol] 3.48 pg/mL Normal 2.50-3.90 [facility] Comment on above: Performed By: #### 3 5365-6, [facility], 3016-3, 31463-2 #### [facility] ([id number]) [address], [address] [place] [address] Reference Lab Test IDon 03-0 CELIAC COMP CASCADE SEE COMMENTS 01/10/2024 10:26 PM Normal [facility] Comment on above: Result Comment: NOTE Test Result Flag Unit RefValue -- Celiac Disease [facility] Immunoglobulin A (IgA) 261 mg/dL 61 - [...] instructions. Its performance characteristics were determined by [facility] in a manner consistent with CLIA requirements. This test has not been cleared or approved by the U.S. Food and Drug Administration. CLIA: [id number] CLIA Metal Baler: ALAN LOUIS MD,PhD Celiac Disease See Note Interpretation See Comment: Celiac disease probable. Consider biopsy. Test Performed by: [facility] [address] [place] [address] Metal Baler: Alan Louis M.D. Ph.D.; CLIA# [id number] Test Performed by: [facility] [address] [place] [address] Metal Baler: Alan Louis M.D. Ph.D.; CLIA# [id number] Performed By: #### 3 5365-6, [facility], 3016-3, 70923-7 #### [facility] ([id number]) [address], [address] [place] [address] THYROID PROFILEon 01-03-2024 Free T4 [Mass/Vol] 0.82 ng/dL Normal 0.61-1.60 [facility] Comment on above: Performed By: #### 3 5365-6, CMP, 3016-3, 12571-3 #### [facility] ([id number]) [address] [facility], [address] [place] [address] TSH 0.41 uIU/mL Low 0.49-4.67 [facility] Comment on above: Performed By: #### 3 5365-6, [facility], 3016-3, 11353-7 #### [facility] ([id number]) [address] [facility], [address] [place] [address] tTG IgA IA Qn (S)on 01-03-20 24 ENDOMYSIAL ABS IGA Negative Normal Negative [facility] Comment on above: Result Comment: NOTE A [...] as indicated by the Celiac Disease Comprehensive [place] (Julian Test Unit Code CDCOM). In addition serum IgA endomysial antibody may also be negative in gluten-sensitive patients (with celiac disease, dermatitis herpetiformis or other gluten-sensitive disorders), who adhere to a strict gluten-free diet. ADDITIONAL INFORMATION This test has been modified from the sales[employer]'s instructions. Its performance characteristics were determined by [facility] in a manner consistent with CLIA requirements. This test has not been cleared or approved by the U.S. Food and Drug Administration. Test Performed by: [place] [address] Metal Baler: Alan Louis M.D. Ph.D.; CLIA# [id number] Performed By: #### 3 5365-6, [facility], 3016-3, 46354-2 #### [facility] ([id number]) [address] [facility] [place] [address] FREE T3on 12-21-2023 Free T3 [Mass/Vol] 3.75 pg/mL Normal 2.50-3.90 [facility] Comment on above: Performed By: #### T HYR, 3051-0, 8099-4 #### [facility] ([id number]) [address] [facility], [address] [place] [address] #### 98433-3 #### [facility] ([id number]) [address] [place] [address] Mullerian inhibiting substan ce [Mass/Vol]on 12-21-2023 ANTI MULLERIAN HORM See Below Normal [facility] Comment on above: Result Comment: NOTE TEST RESULT FLAG UNIT REF.RANGE ------ Anti Mclean Hormone 0.37 L ng/mL 0.58-8.13 Test Performed By: [facility] [employer] [address] [place] [address] [employer]: Eloy Dangelo III, M.D. CLIA #[id number] Performed By: #### 3 5365-6, [facility], 3016-3, 20278-7 #### [facility] ([id number]) [address] [facility], [address] [place] [address] THYROID PROFILEon 12-21-2023 Free T4 [Mass/Vol] 0.94 ng/dL Normal 0.61-1.60 [facility] Comment on above: Performed By: #### T HYR, 3051-0, 8099-4 #### [facility] ([id number]) [address] [facility], [address] [place] [address] #### 95541-5 #### [facility] ([id number]) [address] [place] [address] TSH 0.19 uIU/mL Low 0.49-4.67 [facility] Comment on above: Performed By: #### T HYR, 3051-0, 8099-4 #### [facility] ([id number]) [address] [place] [address], [address] [address] #### 51918-0 #### [facility] ([id number]) [address] [place] [address] THYROPEROXIDASE ABon 024 TPO Ab Qn 415 [IU]/mL High <10 [facility] Comment on above: Performed By: #### T HYR, 3051-0, 8099-4 #### [facility] ([id number]) [address] [place] [address], [address] [address] #### 88521-0 #### [facility] ([id number]) [address] [place] [address] Thyroid stimulating immunogl obulins Qn (S)on 12-21-2023 TSI See Below Normal [facility] Comment on above: Result Comment: NOTE TEST [...] Clinical correlation is required. Test Performed By: [facility] [employer] [address] [place] [address] [employer]: Patti Jacobs III #[id number] Performed By: #### 3 5365-6, [facility], 3016-3, 97884-2 #### [facility] ([id number]) [address] [place] [address], [address] [place] [address] Mullerian inhibiting substan ce [Mass/Vol]on 12-13-2023 ANTI MULLERIAN HORM See Below Normal [facility] Comment on above: Result Comment: NOTE TEST RESULT FLAG UNIT REF.RANGE ------ Anti Mclean Hormone 0.31 L ng/mL 0.58-8.13 Test Performed By: [facility] [employer] [address] [place] [address] [employer]: Patti Jacobs III #[id number] Performed By: #### 3 8476-8 #### [facility] ([id number]) [address] [place] [address] #### 2839-9 #### [facility] ([id number]) [address] [facility], [address] [place] [address] Progesterone [Mass/Vol]on PROGESTERONE 3.5 ng/mL Normal [facility] Comment on above: Result Comment: FEMALES: 1st Tri: 4.7-50.7 ng/ml 2nd Tri: 19.4-45.3 ng/ml MENSTRUATING FEMALES: Follicular: 0.3-1.5 ng/ml Mid Luteal: 5.2-18.6 ng/ml Post Jacy: <0.1-0.8 ng/ml Performed By: #### 3 8476-8 #### [facility] ([id number]) [address] [place] [address] #### 2839-9 #### [facility] ([id number]) [address] [facility], [address] [place] [address] US PELVIC WITH TRANSVAGINALo n 12-13-2023 US [...] Friend MD on 12/13/2023 6:28 PM Normal [facility] Surgical Pathology Reporton 11-27-2023 Surgical Pathology Report (NOTE) Path Number: [id number] -- Diagnosis -- GALLBLADDER, CHOLECYSTECTOMY: -CHRONIC CHOLECYSTITIS -CHOLESTEROLOSIS -CHOLELITHIASIS Carlos A Olson D.O. Electronically Signed Out [facility]/11/28/2023 Clinical Information Pre-Op Diagnosis: CHOLECYSTITIS Operative Findings: GALLBLADDER AND CONTENTS Operation Performed: XI ROBOTIC LAPAROSCOPIC CHOLECYSTECTOMY, LIVER BIOPSY, POSSIBLE OPEN kb Source of Specimen A: GALLBLADDER AND CONTENTS Gross Description PHILLIP NORIEGA GALLBLADDER AND CONTENTS Received in formalin is [...] lesions or periductal lymph nodes are identified. 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 tm Peggy Naylor/kb2:11/27/2023 Microscopic Description Microscopic examination performed. Processing Lab: [address] [address] Interpretation Performed at [address] [address] SURGICAL PATHOLOGY CONSULTATION Patient Name: PHILLIP NORIEGA [facility] Rec: [id number] [facility] ANATOMIC PATHOLOGY [address] [facility]. [place], [place] [id number] Normal [facility] COMPREHENSIVE METABOLIC PANE Augustin 11-16-2023 Albumin [Mass/Vol] 3.7 g/dL Normal 3.2-5.3 [facility] Comment on above: Performed By: #### 3 5365-6, CMP, 3016-3, 51976-7 #### [facility] ([id number]) [address], [address] [place] [address] ALP [Catalytic activity/Vol] 45 U/L Normal 39-130 [facility] Comment on above: Performed By: #### 3 5365-6, CMP, 3016-3, 96474-0 #### [facility] ([id number]) [address], [address] [place] [address] ALT [Catalytic activity/Vol] 51 U/L High 0-31 [facility] Comment on above: Performed By: #### 3 5365-6, CMP, 3016-3, 48995-3 #### [facility] ([id number]) [address], [address] [place] [address] Anion gap [Moles/Vol] 8 mmol/L Normal 5-15 [facility] Comment on above: Performed By: #### 3 5365-6, CMP, 3016-3, 68384-8 #### [facility] ([id number]) [address], [address] [place] [address] AST [Catalytic activity/Vol] 40 U/L Normal 0-41 [facility] Comment on above: Performed By: #### 3 5365-6, CMP, 3016-3, 53020-9 #### [facility] ([id number]) [address], [address] [place] [address] Bilirubin [Mass/Vol] 0.7 mg/dL Normal 0.3-1.2 [facility] Comment on above: Performed By: #### 3 5365-6, CMP, [facility]6-3, #### [facility] ([id number]) [address], [address] [place] [address] Calcium [Mass/Vol] 8.8 mg/dL Normal 8.5-10.5 [facility] Comment on above: Performed By: #### 3 5365-6, CMP, 6-3, #### [facility] ([id number]) [address], [address] [place] [address] Chloride [Moles/Vol] 106 mmol/L Normal 98-109 [facility] Comment on above: Performed By: #### 3 5365-6, CMP, 6-3, #### [facility] ([id number]) [address], [address] [place] [address] CO2 [Moles/Vol] 27 mmol/L Normal 22-32 [facility] Comment on above: Performed By: #### 3 5365-6, CMP, 3016-3, #### [facility] ([id number]) [address], [address] [place] [address] Creatinine [Mass/Vol] 0.60 mg/dL Normal 0.40-1.00 [facility] Comment on above: Result Comment: METH OD TRACEABLE TO IDMS STANDARD Performed By: #### 3 5365-6, [facility], 3016-3, 56908-0 #### [facility] ([id number]) [address], [address] [place] [address] eGFR (CKD-EPI) NON-RACE DEPENDENT >90 Normal >59 [facility] Comment on above: Result Comment: Reported eGFR is based on the CKD-EPI 2020 equation that does not use a race coefficient. Performed By: #### 3 5365-6, [facility], 3016-3, #### [facility] ([id number]) [address], [address] [place] [address] Glucose [Mass/Vol] 79 mg/dL Normal 65-99 [facility] Comment on above: Performed By: #### 3 5365-6, [facility], 6-3, #### [facility] ([id number]) [address], [address] [place] [address] Potassium [Moles/Vol] 3.8 mmol/L Normal 3.5-5.0 [facility] Comment on above: Performed By: #### 3 5365-6, [facility], 3015-3, #### [facility] ([id number]) [address], [address] [place] [address] Protein [Mass/Vol] 6.4 g/dL Normal 6.0-8.0 [facility] Comment on above: Performed By: #### 3 5365-6, [facility], 6-3, 18092-9 #### [facility] ([id number]) [address], [address] [place] [address] Sodium [Moles/Vol] 141 mmol/L Normal 134-146 [facility] Comment on above: Performed By: #### 3 5365-6, CMP, 6-3, 03496-2 #### [facility] ([id number]) [address], [address] [place] [address] Urea nitrogen [Mass/Vol] 11 mg/dL Normal 5-23 [facility] Comment on above: Performed By: #### 3 5365-6, [facility], 6-3, 01235-9 #### [facility] ([id number]) [address], [address] [place] [address] MAGNESIUMon 11-16-2023 Magnesium [Mass/Vol] 1.8 mg/dL Normal 1.8-2.6 [facility] Comment on above: Performed By: #### 3 5365-6, [facility], 6-3, 14141-2 #### [facility] ([id number]) [address], [address] [place] [address] TSH Qnon 11-16-2023 TSH 0.19 uIU/mL Low 0.49-4.67 [facility] Comment on above: Performed By: #### 3 5365-6, [facility], 3015-3, 93626-1 #### [facility] ([id number]) [address], [address] [place] [address] Vitamin D+Metabolites [Mass/ Vol]on 11-16-2023 VITAMIN D 25 HYD TOT 65.7 ng/mL Normal 30-100 [facility] Comment on above: Result Comment: Vitamin D status 25 [place] Vitamin D Deficiency <20 ng/mL Insufficiency 20-29 ng/mL Sufficiency 30-100 ng/mL Toxicity >100 ng/mL NOTE: A pediatric reference range has not been established by the salesperson trailers and motor homes of this kit. The [place] [employer] recommends a Vitamin D level of = or >20ng/mL in infants and children. Performed By: #### 3 5365-6, [facility], 6-3, 28370-1 #### [facility] ([id number]) [address], [address] [place] [address] CBC AUTO DIFFon 05-17-2023 BASO # 0.0 103/ul Normal 0.0-0.1 [facility] Comment on above: Performed By: #### C BC #### [facility] [address] [place] [address] Dr. Froy Calderón Basophils/100 WBC (Bld) 0.6 % Normal 0.2-2.0 [facility] Comment on above: Performed By: #### C BC #### [facility] [address] [place] [address] Dr. Froy Calderón EO # 0.3 103/ul Normal 0.0-0.7 [facility] Comment on above: Performed By: #### C BC #### [facility] [address] [place] [address] Dr. Froy Calderón Eosinophils/100 WBC (Bld) 3.9 % Normal 0.9-7.0 [facility] Comment on above: Performed By: #### C BC #### [facility] [address] [place] [address] Dr. Froy Calderón Erythrocyte distribution width (RBC) [Ratio] 12.0 % Normal 11.0-15.0 [facility] Comment on above: Performed By: #### C BC #### [facility] [address] [place] [address] Dr. Froy Calderón Hematocrit (Bld) [Volume fraction] 38.6 % Normal 36.0-48.0 [facility] Comment on above: Performed By: #### C BC #### [facility] [address] [place] [address] Dr. Froy Calderón Hemoglobin (Bld) [Mass/Vol] 12.9 g/dL Normal 12.0-16.0 [facility] Comment on above: Performed By: #### C BC #### [facility] [address] [place] [address] Dr. Froy Calderón IG # 0.02 10e3/ul Normal 0.00-0.03 [facility] Comment on above: Performed By: #### C BC #### [facility] [address] [place] [address] Dr. Froy Calderón IG % 0.3 % Normal 0.0-0.5 [facility] Comment on above: Performed By: #### C BC #### [facility] [address] [place] [address] Dr. Froy Calderón LYMPH # 1.8 103/ul Normal 1.2-3.8 [facility] Comment on above: Performed By: #### C BC #### [facility] [address] [place] [address] Dr. Froy Calderón Lymphocytes/100 WBC (Bld) 26.5 % Normal 20.5-60.0 [facility] Comment on above: Performed By: #### C BC #### [facility] [address] [place] [address] Dr. Froy Calderón MANUAL DIFF REQ NO Normal [facility] Comment on above: Performed By: #### C BC #### [facility] [address] [place] [address] Dr. Froy Calderón MCH (RBC) [Entitic mass] 31.3 pg Normal 26.7-34.0 [facility] Comment on above: Performed By: #### C BC #### [facility] [address] [place] [address] Dr. Froy Calderón MCHC (RBC) [Mass/Vol] 33.4 g/dL Normal 29.9-35.2 [facility] Comment on above: Performed By: #### C BC #### [facility] [address] [place] [address] Dr. Froy Calderón MCV (RBC) [Entitic vol] 93.7 fL Normal 81.0-99.0 [facility] Comment on above: Performed By: #### C BC #### [facility] [address] [place] [address] Dr. Froy Calderón MONO # 0.6 103/ul Normal 0.3-0.8 [facility] Comment on above: Performed By: #### C BC #### [facility] [address] [place] [address] Dr. Froy Calderón Monocytes/100 WBC (Bld) 8.1 % Normal 1.7-12.0 [facility] Comment on above: Performed By: #### C BC #### [facility] [address] [place] [address] Dr. Froy Calderón NEUT # 4.2 103/ul Normal 1.4-6.5 [facility] Comment on above: Performed By: #### C BC #### [facility] [address] [place] [address] Dr. Froy Calderón Neutrophils/100 WBC (Bld) 60.6 % Normal 43.0-75.0 [facility] Comment on above: Performed By: #### C BC #### [facility] [address] [place] [address] Dr. Froy Calderón Platelet mean volume (Bld) [Entitic vol] 9.2 fL Critically low 9.5-13.5 [facility] Comment on above: Performed By: #### C BC #### [facility] [address] [place] [address] Dr. Froy Calderón PLT 226 103/ul Normal 150-450 [facility] Comment on above: Performed By: #### C BC #### [facility] [address] [place] [address] Dr. Froy Calderón RBC 4.12 106/ul Critically low 4.20-5.40 [facility] Comment on above: Performed By: #### C BC #### [facility] [address] [place] [address] Dr. Froy Calderón WBC 7.0 103/ul Normal 4.0-11.0 [facility] Comment on above: Performed By: #### C BC #### [facility] [address] [place] [address] Dr. Froy Calderón FREE T4on 03-13-2023 Free T4 [Mass/Vol] 0.96 ng/dL Normal 0.76-1.46 [facility] Comment on above: Performed By: #### F T4 #### [facility] [address] [place] [address] Dr. Froy Calderón GLYCOHEMOGLOBIN A1Con 2022 ADA RECOMMENDATION SEE BELOW Normal [facility] Comment on above: Result Comment: ADA RECOMMENDED LIMIT 4.0 - 6.0 ADA THERAPEUTIC TARGET < 7.0 ACTION SUGGESTED > 7.0 Performed By: #### A 1C #### [facility] [address] [place] [address] Dr. Froy Calderón Glucose [Mass/Vol] 91 mg/dL Normal [facility] Comment on above: Performed By: #### A 1C #### [facility] [address] [address] [address] Froy Calderón HbA1c (Bld) [Mass fraction] 4.8 % Normal 4.5-6.2 [facility] Comment on above: Performed By: #### A 1C #### [facility] [address] [place] [address] Dr. Froy Calderón TSHon 03-13-2023 TSH 5.367 uIU/mL Critically high 0.358-3.740 [facility] Comment on above: Performed By: #### T SH #### [facility] [address] [place] [address] Dr. Froy Calderón US PELVIS AND TRANSVAGon [...] by: NATALIE KHAN Date: 2023-02-19 09:20 Normal [facility] PAP ACOG PANEL 2: 30 to 65on 01-31-2023 . . Normal [facility] Comment on above: Result Comment: Perf ormed at: WB Performed By: #### [id number] #### [facility] [facility] [address] [address] [address] Froy Calderón Age Gdln ACOG Testing 30-65 Normal [facility] Comment on above: Performed By: #### [id number] #### [facility] [address] [address] [address] Froy Calderón DIAGNOSIS: Comment Normal [facility] Comment on above: Result Comment: NEGA TIVE FOR INTRAEPITHELIAL LESION OR MALIGNANCY. Performed at: WB Performed By: #### [id number] #### [facility] [address] [address] [address] Froy Calderón HPV Aptima Negative Normal Negative [facility] Comment on above: Result Comment: This nucleic acid amplification test detects fourteen high-risk HPV types (16,18,31,33,35,39,45,51,52,56,58,59,66,68) without differentiation. Performed at: =G Performed By: #### [id number] #### [facility] [address] [address] [address] Froy Calderón HPV Genotype Reflex Comment Normal [facility] Comment on above: Result Comment: Crit eria not met, HPV Genotype not performed. Performed at: WB Performed By: #### [id number] #### [facility] [address] [address] [address] Froy Calderón Methodology: Comment Normal [facility] Comment on above: Result Comment: This liquid based ThinPrep(R) pap test was screened with the use of an image guided system. Performed at: WB Performed By: #### [id number] #### [facility] [address] [place] [address] Dr. Froy Calderón Note: Comment Normal [facility] Comment on above: Result Comment: The Pap smear is a screening test designed to aid in the detection of premalignant and malignant conditions of the uterine cervix. It is not a diagnostic procedure and should not be used as the sole means of detecting cervical cancer. Both false-positive and false-negative reports do occur. . Performed at: WB Performed By: #### [id number] #### [facility] [address] [place] [address] Dr. Froy Calderón Performed by: Comment Normal [facility] Comment on above: Result Comment: Racheal Villatoro, Skin Installer Performed at: WB Performed By: #### [id number] #### [facility] [address] [place] [address] Dr. Froy Calderón Specimen adequacy: Comment Normal [facility] Comment on above: Result Comment: Sati sfactory for evaluation. Endocervical and/or squamous metaplastic cells (endocervical component) are present. Performed at: WB Performed By: #### [id number] #### [facility] [address] [place] [address] Dr. Froy Calderón Cytology Cervical or vaginal smear or scraping studyon 2023 [facility] PREG QUANT HCGon 12-03-2022 HCG QUANT <1 [facility] Comment on above: Performed By: #### P REGQNT #### [facility] [address] [place] [address] Dr. Froy Calderón HCG RANGE SEE BELOW [facility] Comment on above: Result Comment: 5-50 0.2-1 WEEK 50-500 1-2 WEEKS 100-5,000 2-3 WEEKS 500-10,000 3-4 WEEKS 1,000-50,000 4-5 WEEKS 10,000-100,000 5-6 WEEKS 15,000-200,000 6-8 WEEKS 10,000-100,000 2-3 MONTHS Performed By: #### P REGQNT #### [facility] [address] [place] [address] Dr. Froy Calderón Basic Metabolic Panelon 09-0 Anion gap [Moles/Vol] 10 mmol/L 9 - 17 mmol/L [facility] Calcium [Mass/Vol] 8.4 mg/dL Low 8.6 - 10. 4 mg/dL [facility] Chloride [Moles/Vol] 107 mmol/L 98 - 10 7 mmol/L [facility] CO2 [Moles/Vol] 21 mmol/L 20 - 31 mmol/L [facility] Creatinine [Mass/Vol] 0.61 mg/dL 0.5 - 0.9 mg/dL [facility] GFR >60 60 - PI NF mL/min [facility] GFR Non- >60 60 - PINF mL/min [facility] GFR/1.73 sq M.predicted MDRD (S/P/Bld) [Vol rate/Area] [facility] Comment on above: Average GFR for 20-2 9 years old: 116 mL/min/1.73sq m Chronic Kidney Disease: <60 mL/min/1.73sq m Kidney failure: <15 mL/min/1.73sq m eGFR calculated using average adult body mass. Additional eGFR calculator available at: http://www.Mindframe/multiple_crcl_2012.htm Glucose [Mass/Vol] 107 mg/dL High 70 - 99 mg/dL [facility] Interpretation and review of laboratory results Abnormal [facility] Potassium [Moles/Vol] 5.0 mmol/L 3.7 - 5.3 mmol/L [facility] Sodium [Moles/Vol] 138 mmol/L 135 - 144 mmol/L [facility] Urea nitrogen (BldV) [Mass/Vol] 7 mg/dL 6 - 20 mg/dL [facility] CBCon 07-04-2022 Hematocrit (Bld) [Volume fraction] 39.8 % 36.3 - 47.1 % [facility] Hemoglobin (Bld) [Mass/Vol] 13.4 g/dL 11.9 - 15.1 g/dL [facility] Interpretation and review of laboratory results Abnormal [facility] MCH (RBC) [Entitic mass] 30.1 pg 25.2 - 33.5 pg [facility] MCHC (RBC) [Mass/Vol] 33.7 g/dL 28.4 - 34.8 g/dL [facility] MCV (RBC) [Entitic vol] 89.4 fL 82.6 - 102.9 fL [facility] NRBC Automated 0.0 0.0 per 100 WBC [facility] Platelet distribution width (Bld) [Ratio] 11.6 % Low 11.8 - 14.4 % [facility] Platelet mean volume (Bld) [Entitic vol] 9.6 fL 8.1 - 13.5 fL [facility] Platelets (Bld) [#/Vol] 217 10*3/uL [facility] RBC (Bld) [#/Vol] 4.45 10*6/uL 3.95 - 5.1 1 m/uL [facility] WBC (Bld) [#/Vol] 13.6 10*3/uL High [facility] Basic Metabolic Panelon 090 Anion gap [Moles/Vol] 14 mmol/L 9 - 17 mmol/L [facility] Calcium [Mass/Vol] 8.8 mg/dL 8.6 - 10. 4 mg/dL [facility] Chloride [Moles/Vol] 103 mmol/L 98 - 10 7 mmol/L [facility] CO2 [Moles/Vol] 18 mmol/L Low 20 - 31 mmol/L [facility] Creatinine [Mass/Vol] 0.66 mg/dL 0.5 - 0.9 mg/dL [facility] GFR >60 60 - PI NF mL/min [facility] GFR Non- >60 60 - PINF mL/min [facility] GFR/1.73 sq M.predicted MDRD (S/P/Bld) [Vol rate/Area] [facility] Comment on above: Average GFR for 20-2 9 years old: 116 mL/min/1.73sq m Chronic Kidney Disease: <60 mL/min/1.73sq m Kidney failure: <15 mL/min/1.73sq m eGFR calculated using average adult body mass. Additional eGFR calculator available at: http://www.[employer].VISup/multiple_crcl_2012.htm Glucose [Mass/Vol] 126 mg/dL High 70 - 99 mg/dL [facility] Interpretation and review of laboratory results Abnormal [facility] Potassium [Moles/Vol] 4.3 mmol/L 3.7 - 5.3 mmol/L [facility] Sodium [Moles/Vol] 135 mmol/L 135 - 144 mmol/L [facility] Urea nitrogen (BldV) [Mass/Vol] 11 mg/dL 6 - 20 mg/dL [facility] CBC without Diffon Hematocrit (Bld) [Volume fraction] 46.4 % 36.3 - 47.1 % [facility] Hemoglobin (Bld) [Mass/Vol] 15.2 g/dL High 11.9 - 15.1 g/dL [facility] Interpretation and review of laboratory results Abnormal [facility] MCH (RBC) [Entitic mass] 29.9 pg 25.2 - 33.5 pg [facility] MCHC (RBC) [Mass/Vol] 32.8 g/dL 28.4 - 34.8 g/dL [facility] MCV (RBC) [Entitic vol] 91.2 fL 82.6 - 102.9 fL [facility] NRBC Automated 0.0 0.0 per 100 WBC [facility] Platelet distribution width (Bld) [Ratio] 11.9 % 11.8 - 14.4 % [facility] Platelet mean volume (Bld) [Entitic vol] 9.4 fL 8.1 - 13.5 fL [facility] Platelets (Bld) [#/Vol] 232 10*3/uL [facility] RBC (Bld) [#/Vol] 5.09 10*6/uL 3.95 - 5.1 1 m/uL [facility] WBC (Bld) [#/Vol] 9.0 10*3/uL [facility] POCT urine pregnancyon 07-03 Beta HCG ( test) Ql (U) Negative NEGATIVE [facility] Comment on above: Specimens with hCG l evels near the threshold of the test (25 mIU/mL) may give a negative or indeterminate result. In such cases, another test should be performed with a new specimen in 48-72 hours. If early is suspected clinically in this setting, correlation with quantitative serum b-hCG level is suggested. [facility] Gastroenterology Office/Clin ic Noteon 03-29-2021 Gastroenterology Office/Clinic [...] this time. Electronically signed by Faith River Eber 03/31/21 14:40 EDT Electronically signed by Paulie HUFFFaviolaSALLIEMagdalene 04/03/2021 09:24 EDT Normal [facility] [place] 02-27-2021 Consent [id number]# 1.00CD:127 [facility] Registrationon 02-27-2021 Registration [id number]# 1.00CD:127 [facility] Vital Signs Date Time Vital Sign Value Performing Clinician Facility 12-16-2024 10:40-0500 Body mass index (BMI) [Ratio] 27.75 kg/m2 Jake Fe DO Work Phone: [facility] 12-16-2024 10:40-0500 Body weight 90.27 kg Jake Fe DO Work Phone: [facility] 12-16-2024 10:40-0500 Diastolic blood pressure 60 mm[Hg] Jake Fe DO Work Phone: [facility] 12-16-2024 10:40-0500 Systolic blood pressure 110 mm[Hg] Jake Fe DO Work Phone: [facility] 12-02-2024 10:45-0500 Body mass index (BMI) [Ratio] 27.17 kg/m2 Jake Fe DO Work Phone: [facility] 12-02-2024 10:45-0500 Body weight 88.36 kg Jake Fe DO Work Phone: [facility] 12-02-2024 10:45-0500 Diastolic blood pressure 72 mm[Hg] Jake Fe DO Work Phone: [facility] 12-02-2024 10:45-0500 Systolic blood pressure 110 mm[Hg] Jake Fe DO Work Phone: [facility] 11-20-2024 09:56-0500 Body mass index (BMI) [Ratio] 27.66 kg/m2 Ronaldo Mcnulty MD Work Phone: [facility] 11-20-2024 09:56-0500 Body weight 87.45 kg Ronaldo Mcnulty MD Work Phone: [facility] 11-20-2024 09:56-0500 Diastolic blood pressure 78 mm[Hg] Ronaldo Mcnulty MD Work Phone: [facility] 11-20-2024 09:56-0500 Heart rate 86 /min Ronaldo Mcnulty MD Work Phone: [facility] 11-20-2024 09:56-0500 Systolic blood pressure 116 mm[Hg] Ronaldo Mcnulty MD Work Phone: [facility] 11-18-2024 15:49-0500 Body mass index (BMI) [Ratio] 27.06 kg/m2 Jake Fe DO Work Phone: [facility] 11-18-2024 15:49-0500 Body weight 88 kg Jake Fe DO Work Phone: [facility] 11-18-2024 15:49-0500 Diastolic blood pressure 68 mm[Hg] Jake Fe DO Work Phone: [facility] 11-18-2024 15:49-0500 Systolic blood pressure 116 mm[Hg] Jake Fe DO Work Phone: [facility] 11-04-2024 14:47-0500 Body mass index (BMI) [Ratio] 27.03 kg/m2 Jake Fe DO Work Phone: [facility] 11-04-2024 14:47-0500 Body weight 87.91 kg Jake Fe DO Work Phone: [facility] 11-04-2024 14:47-0500 Diastolic blood pressure 70 mm[Hg] Jake Fe DO Work Phone: [facility] 11-04-2024 14:47-0500 Systolic blood pressure 120 mm[Hg] Jake Fe DO Work Phone: [facility] 10-22-2024 11:17-0500 Body mass index (BMI) [Ratio] 26.33 kg/m2 Jake Fe DO Work Phone: [facility] 10-22-2024 11:17-0500 Body weight 85.64 kg Jake Fe DO Work Phone: [facility] 10-22-2024 11:17-0500 Diastolic blood pressure 70 mm[Hg] Jake Fe DO Work Phone: [facility] 10-22-2024 11:17-0500 Systolic blood pressure 110 mm[Hg] Jake Fe DO Work Phone: [facility] 09-29-2024 09:25-0500 Body mass index (BMI) [Ratio] 25.8 kg/m2 Jake Fe DO Work Phone: [facility] 09-29-2024 09:25-0500 Body weight 83.92 kg Jake Fe DO Work Phone: [facility] 09-29-2024 09:25-0500 Diastolic blood pressure 72 mm[Hg] Jake Fe DO Work Phone: [facility] 09-29-2024 09:25-0500 Systolic blood pressure 102 mm[Hg] Jake Fe DO Work Phone: [facility] 09-01-2024 11:46-0500 Body mass index (BMI) [Ratio] 24.69 kg/m2 Jake Fe DO Work Phone: [facility] 09-01-2024 11:46-0500 Body weight 80.29 kg Jake Fe DO Work Phone: [facility] 09-01-2024 11:46-0500 Diastolic blood pressure 60 mm[Hg] Jake Fe DO Work Phone: [facility] 09-01-2024 11:46-0500 Systolic blood pressure 100 mm[Hg] Jake Fe DO Work Phone: [facility] 08-03-2024 09:04-0400 Body mass index (BMI) [Ratio] 23.85 kg/m2 Katherine VELAZCO Work Phone: [facility] 08-03-2024 09:04-0400 Body weight 77.56 kg Katherine Yuliana PA Work Phone: [facility] 08-03-2024 09:04-0400 Diastolic blood pressure 72 mm[Hg] Katherine Bridges PA Work Phone: [facility] 08-03-2024 09:04-0400 Systolic blood pressure 118 mm[Hg] Katherine Oweney PA Work Phone: [facility] 07-07-2024 09:24-0400 Body mass index (BMI) [Ratio] 22.59 kg/m2 Jake Fe DO Work Phone: [facility] 07-07-2024 09:24-0400 Body weight 73.48 kg Jake Fe DO Work Phone: [facility] 07-07-2024 09:24-0400 Diastolic blood pressure 60 mm[Hg] Jake Fe DO Work Phone: [facility] 07-07-2024 09:24-0400 Systolic blood pressure 110 mm[Hg] Jake Fe DO Work Phone: [facility] 07-04-2022 11:11-0400 Body temperature 99.3 [degF] Bret Wetzel DO Work Phone: [facility] 07-04-2022 11:11-0400 Diastolic blood pressure 75 mm[Hg] Bret Wetzel DO Work Phone: [facility] 07-04-2022 11:11-0400 Heart rate 63 /min Bret Wetzel DO Work Phone: [employer] 07-04-2022 11:11-0400 Respiratory rate 16 /min Bret Wetzel DO Work Phone: [employer] 07-04-2022 11:11-0400 SaO2% (BldA) [Mass fraction] 99 % Bret Wetzel DO Work Phone: [employer] 07-04-2022 11:11-0400 Systolic blood pressure 141 mm[Hg] Bret Wetzel DO Work Phone: [employer] 07-03-2022 09:50-0400 Body height 177.8 cm Bret Wetzel [employer] Work Phone: [employer] 07-03-2022 09:50-0400 Body mass index (BMI) [Ratio] 38.17 kg/m2 Bret Wetzel [employer] Work Phone: [employer] 07-03-2022 09:50-0400 Body weight 120.66 kg Bret Wetzel DO Work Phone: [employer] Encounters Encounter Date Encounter Type Care Provider Facility Start: 12-17-2024 End: 12-17-2024 Clinisync Result Encounter Jake Fe DO Work Phone: [facility] External Department Unsolicited Start: 12-17-2024 End: 12-17-2024 Clinisync Result Encounter Jake Fe DO Work Phone: [facility] External Department Unsolicited Start: 12-16-2024 End: 12-16-2024 Bamboo flowsheet Jake Fe DO Work Phone: [facility] Start: 12-16-2024 End: 12-21-2024 Bamboo flowsheet Jake Fe DO Work Phone: [facility] Start: 12-16-2024 End: 12-21-2024 Clinisync Result Encounter Jake Fe DO Work Phone: [facility] External Department Unsolicited Start: 12-16-2024 End: 12-16-2024 Office outpatient visit 15 minutes Jake Fe DO Work Phone: [facility] Comment on above: Third trimester preg qamar; 36 weeks gestation of ; Excessive growth affecting management of , antepartum, single or unspecified fetus Start: 12-16-2024 End: 12-16-2024 ambulatory JAKE FE Not Available Start: 12-10-2024 End: 12-10-2024 Clinisync Result Encounter Jake Fe DO Work Phone: [facility] External Department Unsolicited Start: 12-10-2024 End: 12-10-2024 Clinisync Result Encounter Jake Fe DO Work Phone: [facility] External Department Unsolicited Start: 12-02-2024 End: 12-02-2024 [...] Mcnulty MD Work Phone: [facility] Comment on above: H/O gastric sleeve ( [...] Start: 11-11-2024 End: 11-11-2024 ambulatory JAKE R [facility] Start: 11-04-2024 End: 11-04-2024 Office outpatient [...] Bamboo flowsheet Jake Fe DO Work Phone: [facility] Start: 09-29-2024 End: 09-29-2024 Bamboo flowsheet Jake Fe DO Work Phone: [facility] Start: 09-29-2024 End: 09-29-2024 Office outpatient visit 15 minutes Jake Fe DO Work Phone: [facility] Comment on above: Second trimester pre gnancy; 25 weeks gestation of ; Diabetes mellitus screening; Gestational diabetes mellitus (GDM), antepartum, gestational diabetes method of control unspecified; Elevated glucose tolerance test Start: 09-29-2024 End: 09-29-2024 ambulatory JAKE FE Not Available Start: 09-01-2024 End: 09-01-2024 Bamboo flowsheet Jake Fe DO Work Phone: [facility] Start: 09-01-2024 End: 09-01-2024 Bamboo flowsheet Jake Fe DO Work Phone: [facility] Start: 09-01-2024 End: 09-01-2024 Office outpatient visit 15 minutes Jake Fe DO Work Phone: [facility] Comment on above: 21 weeks gestation o f ; Second trimester Start: 09-01-2024 End: 09-01-2024 ambulatory JAKE FE Not Available Start: 08-26-2024 End: 08-26-2024 Emergency department patient visit ROGER MCKENZIE [facility] Start: 08-15-2024 End: 08-15-2024 External Result Encounter Jake Fe DO Work Phone: [facility] External Department Unsolicited Start: 08-15-2024 End: 08-15-2024 External Result Encounter Jake Fe DO Work Phone: [facility] External Department Unsolicited Start: 08-15-2024 End: 08-15-2024 ambulatory JAKE R [facility] Start: 08-03-2024 End: 08-03-2024 Bamboo flowsheet Katherine VELAZCO Work Phone: [facility] Start: 08-03-2024 End: 08-04-2024 Bamboo flowsheet Katherine VELAZCO Work Phone: [facility] Start: 08-03-2024 End: 08-04-2024 External Result Encounter Katherine VELAZCO Work Phone: [facility] External Department Unsolicited Start: 08-03-2024 End: 08-03-2024 Office outpatient visit 15 minutes Katherine VELAZCO Work Phone: [facility] Comment on above: Well woman exam with routine gynecological exam; Exposure to STD; Need for maternal serum alpha-protein (MSAFP) screening; Second trimester ; 17 weeks gestation of ; Screening, , for anatomic survey Start: 08-03-2024 End: 08-03-2024 Patient encounter procedure Katherine VELAZCO Work Phone: [facility] Healthcare Start: 08-03-2024 End: 08-03-2024 ambulatory KATHERINE BRIDGES Not Available Start: 07-18-2024 End: 07-18-2024 External Result Encounter Jake Fe DO Work Phone: [facility] External Department Unsolicited Start: 07-18-2024 End: 07-18-2024 External Result Encounter Jake Fe DO Work Phone: [facility] External Department Unsolicited Start: 07-18-2024 End: 07-18-[address] [facility] Start: 07-13-2024 End: 07-13-2024 Orders Only Jake [...] Department Unsolicited Start: 06-20-2024 End: 06-20-[address] [facility] Start: 06-12-2024 End: 06-12-2024 ambulatory JAKE FE Not Available Start: 06-06-2024 End: 06-06-2024 Emergency department patient visit [facility] Start: 06-06-2024 End: 06-06-[address] [facility] Start: 05-26-2024 End: 05-27-2024 Emergency department patient visit ROGER MCKENZIE [facility] Start: 05-14-2024 End: 05-14-[address] [facility] Start: 05-11-2024 End: 05-11-[address] [facility] Start: 05-08-2024 End: 05-08-[address] [facility] Start: 05-06-2024 End: 05-06-[address] [facility] Start: 05-01-2024 End: 05-01-2024 ambulatory JAKE MIRAMONTES [facility] Start: 04-28-2024 End: 04-28-2024 ambulatory [facility] Start: 02-14-2024 End: 02-14-2024 ambulatory [facility] Start: 2024 End: 2024 ambulatory [facility] Start: 01-18-2024 End: 01-18-2024 ambulatory [facility] Start: 01-03-2024 End: 01-03-2024 ambulatory [facility] Start: 12-21-2023 End: 12-21-2023 ambulatory [facility] Start: 12-18-2023 Orders Only Jake Miramontes DO Work Phone: [facility] Comment on above: 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 Facility:[facility] Start: 02-19-2023 End: 02-20-[address] JAKE MIRAMONTES . Facility:[facility] Start: 2023 End: [address] JAKE MIRAMONTES . Facility:[facility] Start: 12-03-2022 End: 12-04-[address] JAKE MIRAMONTES . Facility:[facility] Start: 07-03-2022 End: 07-04-2022 Subsequent hospital visit by physician Bret Wetzel DO Work Phone: [facility] Comment on above: S/P laparoscopic sle han gastrectomy (Primary Dx); Obesity, unspecified classification, unspecified obesity type, unspecified whether serious comorbidity present; Gastroesophageal reflux disease, unspecified whether esophagitis present Start: 04-27-2021 ambulatory Chayo Fofana MD Facility:[facility] Procedures Date Procedure Procedure Detail Performing Clinician Start: 12-17-2024 OB BPP W NON-STRESS Jake Fe DO Work Phone: Start: 12-16-2024 Urnls dip stick/tabl et rgnt non-auto w/o micrscp Jake Fe DO Work Phone: Start: 12-16-2024 ALL MISCELLANEOUS TEST Jake Fe DO Work Phone: Start: 12-10-2024 OB BPP W NON-STRESS Jake Fe DO Work Phone: Start: 12-02-2024 Urnls dip [...] stick/tabl et rgnt non-auto w/o micrscp Jake [employer] Work Phone: Start: 08-15-2024 Assay of thyroid stimulating hormone tsh Jake [employer] Work Phone: Start: 08-03-2024 URETHRITIS/DISCHARGE PLUS VAGINITIS (HTRX) Katherine VELAZCO Work Phone: Start: 08-03-2024 Urnls dip stick/tabl et rgnt non-auto w/o micrscp Katherine VELAZCO Work Phone: Start: 07-18-2024 Assay of thyroid stimulating hormone tsh Jake Fe DO Work Phone: Start: 07-07-2024 Urnls dip stick/tabl et rgnt non-auto w/o micrscp Jake Fe DO Work Phone: Start: 06-20-2024 Thyrotropin [Units/v olume] in Serum or Plasma [employer] Work Phone: Start: 2023 Microscopic observat ion [Identifier] in Cervix by Cyto stain Jake Fe DO Work Phone: Start: 2023 Cytp cerv/vag auto t hin layer prep 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 [employer] Phone: Start: 07-04-2022 Basic metabolic pane l calcium total Bret Velázquez Kaleb [employer] Work Phone: Start: 07-03-2022 Basic metabolic pane l calcium total Bret Eber Wetzel [employer] Work Phone: Start: 07-03-2022 End: 07-03-2022 Laps gstrc rstrictiv px longitudinal gastrectomy Bret Velázquez [employer] Work Phone: Start: 07-03-2022 Urine test visual color cmprsn meths Bret Velázquez Kaleb [employer] Work Phone: Start: 04-17-2021 Microscopic observat ion [Identifier] in Cervix by Cyto stain Jake Miramontes DO Work Phone: Plan of Treatment Date Care Activity Detail Author Start: 01-25-2028 Screening for malign ant neoplasm of cervix [facility] Start: 2026 Screening for malign ant neoplasm of cervix Pap Smear [facility] Start: 11-20-2025 Adult BMI Screening Adult BMI Screen [facility] Start: 11-20-2025 Tobacco Screening Tobacco Screening [facility] Start: 06-06-2025 Adult BMI Screening Adult BMI Screen ing [facility] Start: 05-26-2025 Tobacco Screening Tobacco Screening [facility] Start: 12-30-2024 End: 12-30-2024 Patient encounter procedure 12/30/2024 1:10 PM EST [facility]ine [facility] [address] [place] [id number] Jake Miramontes, DO [address] [place] [address] [facility] Start: 12-23-2024 End: 12-23-2024 Patient encounter procedure 12/23/2024 11:30 AM EST Routine [facility] [address] [place] [id number] Jake Miramontes, DO [address] [place] [address] [facility] Start: 12-16-2024 End: 12-16-2025 CULTURE, GROUP B STREP WITH SUSCEPTIBLITY CULTURE, GROUP B STREP WITH SUSCEPTIBLITY Lab Routine Third trimester Expected: 12/16/2024, Expires: 12/16/2025 [facility] Work Phone: Comment on above: Expected: 12/16/2024 , Expires: 12/16/2025 Start: 12-16-2024 End: 12-16-2025 US for US OB follow up transabdominal approach Imaging Routine Excessive growth affecting management of , antepartum, single or unspecified fetus Expected: 12/16/2024, Expires: 12/16/2025 [facility] Comment on above: Expected: 12/16/2024 , Expires: 12/16/2025 Start: 12-16-2024 End: 12-16-2024 Patient encounter procedure [facility] Comment on above: Arrived Start: 12-02-2024 End: 12-02-2025 US biophysical profile [...] 11-01-2024 Adult BMI Screening Adult BMI Screen [facility] Start: 10-22-2024 End: 10-22-2024 Patient encounter [...] EST Ancillary Procedure [facility] [address] [place] [phone] [facility] Start: 09-01-2024 End: 09-01-2024 Patient encounter procedure 09/01/2024 9:20 AM EST Routine [facility] [address] [place] [phone] Jake Miramontes, DO [address] [place] [address] [facility] Start: 08-03-2024 End: 09-03-2024 Alpha fetoprotein, maternal Alpha fetoprotein, maternal Lab Routine Screening, , for anatomic survey Expected: 08/03/2024 (Approximate), Expires: 09/03/2024 [facility] Healthcare Work Phone: Comment on above: Expected: 08/03/2024 (Approximate), Expires: 09/03/2024 Start: 08-03-2024 End: 08-03-2025 US for US OB ANATOMY SINGLE W US OB CERVICAL LENGTH Imaging Routine Screening, , for anatomic survey Expected: 08/03/2024 (Approximate), Expires: 08/03/2025 [facility] Healthcare Comment on above: Expected: 08/03/2024 (Approximate), Expires: 08/03/2025 Start: 08-03-2024 End: 08-03-2024 Patient encounter procedure [facility] Comment on above: Arrived Start: 07-13-2024 End: 07-13-2025 Thyroid profile includes TSH FT4 Thyroid profile includes TSH FT4 Lab Routine Hypothyroidism, unspecified Expected: 07/13/2024, Expires: 07/13/2025 [employer] Work Phone: Comment on above: Expected: 07/13/2024 , Expires: 07/13/2025 Start: 07-07-2024 End: 07-07-2024 Patient encounter procedure [facility] Comment on above: Arrived Start: 06-28-2024 Influenza vaccination [facility] Start: 04-17-2024 Screening for malign ant neoplasm of cervix Pap Smear [facility] Start: 12-18-2023 End: 12-18-2024 Antimullerian hormone (AMH) Antimullerian hormone (AMH) Lab Routine Female infertility associated with anovulation Personal history of other diseases of the female genital tract Expected: 12/18/2023, Expires: 12/18/2024 [employer] Work Phone: Comment on above: Expected: 12/18/2023 , Expires: 12/18/2024 Start: 12-06-2023 Tobacco Screening Tobacco Screening [facility] Start: 06-28-2023 Influenza vaccination Influenza Vacc ine [facility] Start: 08-07-2022 End: 08-07-2022 Patient encounter procedure 08/07/2022 Office Visit Bariatrics Dottie Diaz, HALFWAY HOUSE COUNSELOR - LIFT OPERATOR [address] [facility] [address] [place] [phone] [facility] Invasive Bariatric Surg Start: 07-12-2022 End: 07-12-2022 Patient encounter procedure 07/12/2022 Office Visit Bariatrics Bret Wetzel DO [address] [facility] [address] [place] [phone] [facility] In[facility] Start: 06-28-2022 Influenza vaccination Flu vaccine (# 1) [facility] Start: 2014 Screening for malign ant neoplasm of cervix Pap smear [facility] Start: 01-25-2012 DTaP,Tdap and Td Vaccines (1 - Tdap) DTaP,Tdap and Td Vaccines (1 - Tdap) [facility] Start: 01-25-2012 DTaP/Tdap/Td vaccine (1 - Tdap) DTaP/Tdap/Td vaccine (1 - Tdap) [facility] Start: 2011 Adult BMI Follow Up Plan Adult BMI Follow Up Plan [facility] Start: 2011 Hepatitis C screening Hepatitis C sc reen [facility] Start: 01-25-2008 HIV screening HIV screen [facility] Start: 2005 Depression Screen Depression Screen [facility] Start: 2005 Depression Screening Depression Scre ening [facility] Start: 01-25-2004 DTaP,Tdap and Td Vaccines (6 - Tdap) DTaP,Tdap and Td Vaccines (6 - Tdap) [facility] Start: 1994 Varicella vaccine (1 of 2 - 2-dose childhood series) Varicella vaccine (1 of 2 - 2-dose childhood series) [facility] Start: 1993 COVID-19 Vaccine (#1) COVID-19 Vacci ne (#1) [facility] CHLAMYDIA TRACHOMATI S (GENITO/STI) CHLAMYDIA TRACHOMATIS (GENITO/STI) Lab Routine Exposure to STD Ordered: 08/03/2024 [facility] [employer] Comment on above: Ordered: 08/03/2024 Continuous pulse oximetry Pulse oximetry, continuous Respiratory Care Routine Every 4hr until discontinued starting 07/03/2022 [facility] [employer] Phone: Comment on above: Every 4hr until disc ontinued starting 07/03/2022 Neisseria gonorrhoea e DNA [Presence] in Unspecified specimen by NEGRITO with probe detection Neisseria gonorrhea DNA probe, direct Lab Routine Exposure to STD Ordered: 08/03/2024 [facility] [employer] Comment on above: Ordered: 08/03/2024 Oxygen therapy [[facility] Data Set] Initiate Oxygen Therapy Protocol Respiratory Care Routine As Needed until discontinued starting 07/03/2022 [facility] Work Phone: Comment on above: As Needed until disc ontinued starting 07/03/2022 Spirometry panel Incentive brea metry Respiratory Care Routine Every 2hr while awake until discontinued starting 07/03/2022 [employer] Work Phone: Comment on above: Every 2hr while awak e until discontinued starting 07/03/2022 SURESWAB(R) ADVANCED VAGINITIS PLUS, TMA SURESWAB(R) ADVANCED VAGINITIS PLUS, TMA Pathology and Cytology Routine Exposure to STD Ordered: 08/03/2024 [facility] [employer] Comment on above: Ordered: 08/03/2024 Surgical Pathology Surgical Path ology Lab Routine Obesity, unspecified classification, unspecified obesity type, unspecified whether serious comorbidity present Gastroesophageal reflux disease, unspecified whether esophagitis present Release Upon Ordering for 1 Occurrences starting 07/03/2022 [employer] Phone: Comment on above: Release Upon Orderin g for 1 Occurrences starting 07/03/2022 End: 07-03-2022 SURGICAL PATHOLOGY REPORT SURGICAL PATHOLOGY REPORT Lab Routine Once for 1 Occurrences starting 07/03/2022 until 07/03/2022 [employer] Phone: Comment on above: Once for 1 Occurrenc es starting 07/03/2022 until 07/03/2022 Thyrotropin [Units/volume] in Serum or Plasma TSH Lab Routine 08/15/2024 9:17 AM EDT [employer] [employer] Work Phone: Immunizations Immunization Date Immunization Notes Care Provider Elver knutson 06-06-2024 RHO(D) immune globul in- IV or IM Jake Miramontes DO Work Phone: [facility] 07-11-2011 influenza virus vaccine, unspecified formulation Jake Miramontes DO Work Phone: [facility] Payers Date Payer Category Payer Medicaid [id number] 2022 Medicaid [id number] 2022 Unknown [employer] [id number] 2021-Present [phone] [address] [place] [address] [id number]. [id number] 2021 Unknown 1993 Unknown [id number] 2.16.840.1.708712.3.579.2.196 1993 Unknown [id number] 2.16.840.1.349424.3.579.2.593 1993 Unknown [id number] 2.16.840.1.699313.3.579.2.593 1993 Unknown [id number] 2.16.840.1.122417.3.579.2.593 1993 Unknown [id number] 2.16.840.1.385088.3.579.2.593 1993 Unknown [id number] 2.16.840.1.714599.3.579.2.175 1993 Unknown [id number] 2.16.840.1.903971.3.579.2.1286 1993 Unknown [id number] 2.16.840.1.314849.3.579.2.1286 1993 Unknown [id number] 2.16.840.1.220954.3.579.2.1286 1993 Unknown [id number] 2.16.840.1.433554.3.579.2.1286 1993 Unknown [id number] 2.16.840.1.455642.3.579.2.1286 1993 Unknown [id number] 2.16.840.1.495282.3.579.2.1286 1993 Unknown [id number] 2.16.840.1.259848.3.579.2.1286 1993 Unknown [id number] 2.16.840.1.035665.3.579.2.1286 1993 Unknown [id number] 2.840.1.045998.3.579.2.1285 1993 Unknown [id number] 2.16840.1.554094.3.579.2.1285 1993 Unknown [id number] 2.840.1.504385.3.579.2.1285 1993 Unknown [id number] 2.840.1.826033.3.579.2.1285 1993 Unknown [id number] 2.0.1.722498.3.579.2.1285 1993 Unknown [id number] 2.0.1.864644.3.579.2.1285 1993 Unknown [id number] 2.1.059494.3.579.2.1285 1993 Unknown [id number] 2.840.1.367753.3.579.2.1258 1993 Unknown [id number] 2.1.568348.3.579.2.1258 1993 Unknown [id number] 20.1.480569.3.579.2.1258 1993 Unknown [id number] 20.1.125019.3.579.2.1258 1993 Unknown [id number] 840.1.885453.3.579.2.1258 1993 Unknown [id number] 2840.1.603176.3.579.2.1258 1993 Unknown [id number] 2.840.1.044199.3.579.2.1258 1993 Unknown [id number] 2840.1.506820.3.579.2.1258 1993 Unknown [id number] 2840.1.288862.3.579.2.1259 1993 Unknown [id number] 2.16.840.1.259710.3.579.2.1259 Social History Date Type Detail Facility Start: 06-15-2022 End: 06-12-2024 Tobacco smoking status NHIS Never smoked tobacco [employer] Start: 06-15-2022 End: 06-12-2024 Tobacco use and exposure Smokeless tobacco non-user [employer] Phone: Start: 07-04-2022 End: 05-26-2024 Alcohol intake Current drinker of alcohol (finding) [employer] Phone: Start: 12-21-2021 History SDOH Alcohol Comment occ [employer] Phone: Start: 1995 Sex Assigned At Not on file [facility] Phone: Start: 06-08-2022 End: 06-18-2022 Exposure to SARS-CoV-2 (event) Not sure [employer] Phone: Start: 07-30-2024 End: 12-16-2024 Alcoholic beverage intake Ex-drinker (finding) [facility] Start: 11-14-2020 End: 06-12-2024 History of Social function [facility] Start: 11-14-2020 End: 06-12-2024 Tobacco use panel [facility] Start: 01-19-2024 Alcohol Comment occasional [facility] Start: 04-20-2024 [facility] Start: 08-05-2019 Alcohol Comment occassionally [facility] [employer] [facility] Start: 06-02-2015 Sex Female (finding) [facility] Medical Equipment Procedure Code Equipment Code Equipment Origin al Text Equipment Identifier Dates 1 strip by In Vi tro route Daily Use in the morning prior to breakfast, 1 hour after each meal for a total of 4times daily. [id number] Start: 09-29-2024 End: 11-04-2024 1 each by In Vit ro route Daily Use to check FSBS four times daily [id number] Start: 09-29-2024 End: 09-30-2024 USE 1 EACH TO CH ALESSANDRA GLUCOSE 4 TIMES DAILY [id number] Start: 09-30-2024 End: 11-04-2024 Clinical Notes 02-24-2021 to 12-02-2024 Tamy Collazo LPN - 12/02/2024 10:50 AM Faiza Mcnulty MD - 11/20/2024 10:00 AM Nghia Raza RN - 11/20/2024 10:00 AM Yelena Collazo LPN - 11/18/2024 3:00 PM Ru[facility] Instructions Note Date & Type Note Facility 12-02-2024 History of Present illness Narrative Reason for Appointment: Patient ID: Phillip Noriega is a 29 y.o. female who presents [...] nursing note reviewed. Exam conducted with a stars specialist present. Vitals: Estimated body mass index is [...] by Tamy Collazo LPN on behalf of: DO Snow Garveyally signed by Tamy Collazo LPN at 12/06/2024 12:41 PM EST documented in this encounter [facility] 11-20-2024 History of Present illness Narrative REASON FOR CONSULTATION: Suspected ventriculomegaly HISTORY OF PRESENT ILLNESS: Phillip Noriega is a pleasant 29 y.o. G two P0 010. at 32w4d due on Estimated Date of Delivery: 01/11/25 . Patient was seen today due to the following 1. Maternal gastric sleeve procedure. Patient had robotic gastric sleeve procedure performed at [facility]. Patient has lost weight. Patient became after [...] 11/13/2018 Performed by Emanuel Reagan DO at [facility] EGD N/A 11/13/2018 Performed by Emanuel Reagan DO at [facility] LAPAROSCOPIC GASTRIC BANDING ALLERGIES: Allergies Allergen Reactions [...] taking: Reported on 11/01/2023), Disp: , Rfl: fjgvsnoy-talm-JQ-calcium &mins (THERAGRAN-M) 9 mg iron-400 mcg tablet, [...] and the other consultants, we search on [employer] and all the available care everywhere epic I did review all the imaging studies of the patient available on EMR, ordered by the primary care physician and the other information consultant HABITS: Patient activity no restrictions, diet [...] patient is in complete care of her grey percher. Patient does not have any future appointment scheduled with us. Thank you for allowing me to participate in Phillip Noriega . If there any questions please do not hesitate to contact us. Sincerely, RONALDO MCNULTY MD Headache/epigastric pain/blurry vision/swelling? No Cramping/contractions? [place] Asif Abnormal vaginal discharge? No Spotting/vaginal bleeding? Patient reports spotting earlier in , has since resolved Loss or gush of fluid like your water may have broken? No Do you have cats at home? Yes Do you change the litter box (reason: risk of toxoplasmosis)? N/A Genetic testing done this here or other office? No Have you been seen here at [facility] in a previous ? No Recent ER visits or hospitalizations? No Bring blood sugar log or meter with you today? (Please bring them with you for every visit at [facility]) N/A Flu vaccine (Aug-December)? No Any concerns that you would like me to mention to the provider today? No documented in this encounter [facility] 11-18-2024 History of Present illness Narrative Reason for Appointment: Patient ID: Phillip Noriega is a 29 y.o. female who presents [...] nursing note reviewed. Exam conducted with a stars specialist present. Vitals: Estimated body mass index is [...] Jake Miramontes DO documented in this encounter [facility] 11-04-2024 History of Present illness Narrative Reason for Appointment: Patient ID: Phillip Noriega is a 29 y.o. female who presents [...] nursing note reviewed. Exam conducted with a stars specialist present. Vitals: Estimated body mass index is [...] Jake Miramontes DO documented in this encounter [facility] 10-22-2024 History of Present illness Narrative Reason for Appointment: Patient ID: Phillip Noriega is a 29 y.o. female who presents for No chief complaint on file. Patient presents today for Return OB appointment. MEDICATIONS Current Outpatient Medications Medication Instructions Alcohol Swabs (Alcohol Prep Pad) 70 % pads 1 Pad, Topical, Daily, Use four times daily to check FSBS. Blood Glucose Monitoring Suppl ([employer] Glucometer) w/Device kit 1 kit, Does not [...] nursing note reviewed. Exam conducted with a stars specialist present. Vitals: Estimated body mass index is [...] Jake Miramontes DO documented in this encounter [facility] 09-29-2024 History of Present illness Narrative Reason for Appointment: Patient ID: Phillip Noriega is a 29 y.o. female who presents [...] nursing note reviewed. Exam conducted with a stars specialist present. Vitals: Estimated body mass index is [...] Jake Miramontes DO documented in this encounter [facility] 09-01-2024 History of Present illness Narrative Reason for Appointment: Patient ID: Phillip Noriega is a 29 y.o. female who presents [...] nursing note reviewed. Exam conducted with a stars specialist present. Vitals: Estimated body mass index is [...] Jake Miramontes DO documented in this encounter [facility] 08-03-2024 History of Present illness Narrative Reason for Appointment: Patient ID: Phillip Noriega is a 29 y.o. female who presents [...] nursing note reviewed. Exam conducted with a stars specialist present. Vitals: Estimated body mass index is [...] by 08/15/2024. Pt was seen by Katherine Bridges heart tones were done and Ipad US was administered by Katherine Bridges at today's visit. Pt had no questions over the orders. Pt to return back in 4 weeks for her next OB visit. Documented by Glenda Cristina MA on behalf of: MORA Jackson documented in this encounter [facility] 07-07-2024 History of Present illness Narrative Reason for Appointment: Patient ID: Phillip Noriega is a 29 y.o. female who presents [...] nursing note reviewed. Exam conducted with a stars specialist present. Vitals: Estimated body mass index is [...] or undercooked meat, and stay away from [facility]. Patient has been consulted regarding any further do's and don'ts of . Patient voiced understanding and all questions and concerns were answered. Orders Placed This Encounter Procedures POCT urinalysis dipstick manually resulted Follow Up: Patient is to return in 4 weeks for routine OB appointment. Documented by Tamy Collazo LPN on behalf of: Jake Miramontes DO documented in this encounter [facility] 07-04-2022 History of Present illness Narrative Patient discharged with all of her belongings. Patient given discharge paperwork and all questions. Patient waiting for ride. Discussed bariatric discharge instructions with patient, allowed time for questions, had patient demonstrate IS, lovenox teaching done and patient voices understanding Bariatric surgery: Daily Progress Note s/p robotic assisted laparoscopic gastric sleeve PATIENT NAME: Phillip Noriega TODAY'S DATE: 07/04/2022, 7:07 AM CC: Postoperative [...] or 07/03/22 documented in this encounter [facility] Phone: 07-04-2022 Hospital Discharge instructions Garrett Corcoran DO - 07/04/2022 8:07 AM EDT Discharge Instructions for Bariatric Surgery You had a Laparoscopic Sleeve Gastrectomy (33964) surgery to treat obesity. Recovery from this [...] in one week. Follow up with Dr. Wetzel in 1 week. If you don't already have a scheduled appointment, please call the office at [phone]. Call Your Doctor If Any of the [...] 911 immediately. documented in this encounter [facility] Phone: 02-24-2021 Note Chief Complaint Referral for [...] states she had a colonoscopy performed in [facility] in 2018 as well as [...] are mucoid-like in nature N/V/blood/frequency: Positive nausea Vilas Score: Typically she rates it for although up to 6 with blood MELD Score: [place] IV Score: Previous Labs: She states last blood work was done in [address] although I currently do not have the [...] areas. Neurologic: Awake, (more content not included)... [facility] Evaluation note Diagnosis S/P laparoscopic sleeve gastrectomy- Primary Obesity, unspecified classification, unspecified obesity type, unspecified whether serious comorbidity present Gastroesophageal reflux disease, unspecified whether esophagitis present documented in this encounter [facility] [employer] Phone: evaluation note* Diagnosis Well woman exam [...] gastric sleeve- Primary [facility] Diagnosis Third trimester state, [...] female genital tract documented in this [facility] Diagnosis Hypothyroidism, unspecified [facility] Diagnosis Third trimester state, incidental 36 weeks gestation of Excessive growth affecting management of , antepartum, single or unspecified fetus documented in this encounter [facility]* Tamy Collazo, BINDERY PRODUCTION MANAGER - 12/16/2024 1:00 PM EST Reason for Appointment: Patient ID: Phillip Noriega is a 29 y.o. female who presents [...] Objective: Physical Exam Constitutional: Appearance: Normal appearance. Genitourinary: Right Adnexa: not tender and no mass present. Left Adnexa: not tender and no mass present. No cervical discharge. Breasts: Breasts are soft. Right: Normal. Left: Normal. HENT: Head: Normocephalic. Nose: Nose normal. Mouth/Throat: [...] nursing note reviewed. Exam conducted with a stars specialist present. Vitals: Estimated body mass index is 27.75 kg/m as calculated from the following: Height as of 03/13/23: 5' 11 . Weight as of this encounter: 199 lb. BP: 110/60 Patient's last menstrual period was 04/06/2024. ASSESSMENT & PLAN ICD-10-CM 1. Third trimester Z34.93 POCT urinalysis dipstick manually resulted CULTURE, GROUP B STREP WITH SUSCEPTIBLITY CULTURE, GROUP B STREP WITH SUSCEPTIBLITY 2. 36 weeks gestation of Z3A.36 POCT urinalysis dipstick manually resulted Patient is doing well but has complaints of being tired and having maternal discomfort due to . Patient verbalized frequent movement and was instructed to perform kick counts three times per day. labor precautions were given, LARC consent was signed/declined, and GBS was obtained. Cervical check was performed and patient is 1cm dilated. Orders Placed This Encounter Procedures CULTURE, GROUP B STREP WITH SUSCEPTIBLITY POCT urinalysis dipstick manually resulted Follow Up: Patient is to return to office in 1 week for routine OB appointment Documented by Tamy Collazo LPN on behalf of: Jake Miramontes DO documented in this encounterNONY HealthcareInstructionsNot on filedocumented in this encounterProGood [facility] SystemInstructionsNot on filedocumented in this encounterProGood Samaritan Hospital SystemInstructionsNot on filedocumented in this encounterFostoria [facility] Summary Purpose Family History No Family [...] section and content) DATE CREATED AUTHOR 02/28/2021 Ramez Rasheed [facility] DATE CREATED AUTHOR AUTHOR'S ORGANIZ ATION 04/27/2021 [facility] DATE CREATED AUTHOR AUTHOR'S ORGANIZ ATION 03/14/2023 [facility] DATE CREATED AUTHOR AUTHOR'S ORGANIZ ATION 11/29/2023 [facility] DATE CREATED AUTHOR AUTHOR'S ORGANIZ ATION 11/14/2024 [facility] DATE CREATED AUTHOR AUTHOR'S ORGANIZ ATION 12/18/2024 [facility] Special[facility] EPIC Reason for Visit (unrecogniz ed section and content) Specialty Diagnoses / Procedures Referred By Sis t Referred To Contact Diagnoses Obesity, unspecified classification, unspecified obesity type, unspecified whether serious comorbidity present Gastroesophageal reflux disease, unspecified whether esophagitis present OBESITY, GERD Procedures TX LAP, MEHUL RESTRICT PROC, LONGITUDINAL GASTRECTOMY XI ROBOTIC LAPAROSCOPIC GASTRECTOMY SLEEVE, EGD, LIVER BIOPSY - GI SCHEDULED Bret Wetzel, [address] [facility] [address] [place] [address] [facility] [address] [place] [address] Referral ID Status Reason Start Date Expiration Date Visits Re quested Visits Authorized [id number] 1 1 Reason Comments Routine Visit Reason [...] (Given - Provider: Robert Cobb APRN - CONFIGURATION TECHNICIAN) heparin (porcine) injection 5,000 Units (COMPLETED) 5,000 [...] Stoner RN) 0836 (Given - Provider: Donna Tramemll RN) scopolamine (TRANSDERM-SCOP) transdermal patch 1 patch [...] (NoRateChange - Provider: Robert Cobb APRN - CONFIGURATION TECHNICIAN)1413 (Paused - Provider: Robert Cobb APRN - BRYANT - Comment: Switch to gravity)1414 (Restarted - Provider: Robert Cobb APRN - CONFIGURATION TECHNICIAN)1456 (New Bag - Provider: Robert Cobb APRN - CONFIGURATION TECHNICIAN)1630 (Anesthesia Volume Adjustment - Provider: Robert Cobb APRN - CONFIGURATION TECHNICIAN) 1354 (Stopped - Provider: Donna Trammell RN) [...] 1555, Intra-op 1549 (Given - Provider: Bret Wetzel, DO - Comment: [place]) cyclobenzaprine (FLEXERIL) [...]
Care Teams (unrecognized sec tion and content) Automobile Service Advisor Relationship Specialty Start Date End Date Jake Miramontes MD [address] [place] [address] PCP - General Obstetrics & Gynecology 06/18/22 Automobile Service Advisor Relationship Specialty Start Date End Date Jake Miramontes DO [facility] [place] [address] PCP - General Obstetrics & Gynecology 06/06/24 Automobile Service Advisor Relationship Specialty Start Date End Date Karina Lopez DO [address] [place] [address] PCP - General Family Medicine 11/01/23 Automobile Service Advisor Relationship Specialty Start Date End Date Jake Miramontes DO [facility] [place] [address] PCP - General Obstetrics & Gynecology 06/06/24 [...] BE BASED ON THE PRIMARY CLINICAL RECORDS. [facility]. provides no warranty or guarantee of the accuracy or completeness of information in this document.
[2024-12-23 14:20] VITALS: BP 124/72; PULSE 67
== END 2024-12-23 15:30 | disposition home or self-care (01) ==
LOC: US 00:26 → FBC 13:43
PROVIDERS: Visit Provider Obstetrics & Gynecology
DX: O36.60X0 Maternal care for excessive fetal growth, unspecified trimester, not applicable or unspecified (principal)
CPT/HCPCS: 76816; 76818

== ENCOUNTER 2024-12-25 04:53 | Inpatient (IN) | payer MEDICAID, SELFPAY ==
[2024-12-25] VITALS (93 sets, daily range): BP systolic 78–185; BP diastolic 46–117; PULSE 45–136; TEMP 36.3–36.9
--- OUTSIDE RECORDS SUMMARY | 2024-12-25 04:58 | XMS_ITS | CCD ---
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 Name Role Phone Ct LEAL, Chayo Mina [...] REQUEST, NONE LISTED Primary Care Unavaila ble [place], DR NATALIE Yung Consulting Unavailable FE ., [...] RUMSCHLAG, KARINA K Primary Care Unavailable DOTTIE IDAZ Referring Unavailable RUMSCHLAG, KARINA K Referring Unavailable [...] Unavailable FE, JAKE R Primary Care Unavailable ROGRE MCKENZIE Attending Unavailable FE, JAKE R Primary Care Unavailable FE, JAKE R Referring Unavailable FE, JAKE R Primary Care Unavailable Fe DO, Jake R Primary Care Provider [facility] DO Karina K Primary Care Provider FE, [...] Propensity to adverse reactions to drug 09-22-20 [facility] (20 sources) Sulfamethoxazole / Trimethoprim; Translations: [SULFAMETHOXAZOLE-T RIMETHOPRIM] Drug Allergy 07-02-20 17 Saida [facility] [employer] Work Phone: (20 sources) Latex Propensity to [...] 1250 mg oral tablet (20 sources) Start: 12-21-2024 take 1 tablet by mouth once daily Oyster Shell Calcium 500 MG tablet Indications: Second trimester Take 1 tablet by mouth once daily 90 tablet 12/21/2024 Active Start: 09-07-2024 take 1 tablet by yolanda th once daily Oyster Shell Calcium 500 MG [...] tablet (500 mg total) before bedtime. Active rbwkgrkk-ieww-LM-calcium &mins (THERAGRAN-M) 9 mg iron-400 mcg tablet (3 sources) gyuhficp-mlcx-IP -calcium &mins (THERAGRAN-M) 9 mg iron-400 mcg tablet Take 1 tablet by mouth in the morning. Active pnrslxiq-nips-EM -calcium &mins (THERAGRAN-M) 9 mg iron-400 mcg [...] [36 weeks gestation of ] 12-16-2024 Episodic Residual codes; unclassified (2 sources) Gestation period, 37 weeks; Translations: [37 weeks gestation of ] 12-23-2024 Episodic Thyroid disorders (4 sources) Autoimmune thyroiditis; [...] Facility US OB BPP W NON-STRESS on 12-23-2024 [place] [address] Ultrasound Report Signed Patient: PHILLIP NORIEGA MR#: [id number] : 1995 Acct:[id number] Age/Sex: 29 / F ADM Date: 12/23/24 Loc: US Attending Dr: Jake Miramontes D.O. Ordering Physician: Jake Miramontes D.O. Date of Service: 12/23/24 Procedure(s): US OB BPP w non-stress Accession Number(s): [id number] cc: Jaek Miramontes D.O.; Physician,Non-Staff M.DMicheal The [place] [address] Patient Name: PHILLIP NORIEGA MRN: [facility]:[id number] date: 1995 Sex: F Assigned Patient Location: [facility] Current Patient Location: Accession/Order Number: [id number] Exam Date: 12/23/2024 19:02 Report Date: 12/23/2024 19:06 At the request of: JAKE FE DO Procedure: US OB BPP w non-stress Exam: Biophysical profile. Reason for exam: Excessive growth. COMPARISON: BPP 12/17/2024. TECHNIQUE: Transabdominal imaging of the gravid uterus was obtained. FINDINGS: The x ray physician reports a BPP of 8 out of 8. heart rate 132 bpm. JOHN is normal at 10.3 cm. US/US OB BPP w non-stress IMPRESSION: BPP 8 out of 8. Impression dictated by: Robert Ku Jr., D.O.12/23/2024 7:06 PM Dictation Location: [place] [address] Electronically authenticated by: [id number] Y Date: 12/23/2024 19:06 Dictated By: Robert Ku M.D. Signed By: 12/23/241908 DD/ 05 TD/TT: Crust Sorter: [facility] Radiology, Radiologist, MD - 12/23/2024 [place] [address] Ultrasound Report Signed Patient: PHILLIP NORIEGA MR#: [id number] : 1995 Acct:[id number] Age/Sex: 29 / F ADM Date: 12/23/24 Loc: US Attending Dr: Jake Miramontes D.O. Ordering Physician: Jake Miramontes D.O. Date of Service: 12/23/24 Procedure(s): US OB BPP w non-stress Accession Number(s): [id number] cc: Jake Miramontes D.O.; Physician,Non-Staff Patti The [place] [phone] Patient Name: PHILLIP NORIEGA MRN: [facility]:[id number] date: 1995 Sex: F Assigned Patient Location: [facility] Current Patient Location: Accession/Order Number: [id number] Exam Date: 12/23/2024 19:02 Report Date: 12/23/2024 19:06 At the request of: JAKE MIRAMONTES DO Procedure: US OB BPP w non-stress Exam: Biophysical profile. Reason for exam: Excessive growth. COMPARISON: BPP 12/17/2024. TECHNIQUE: Transabdominal imaging of the gravid uterus was obtained. FINDINGS: The x ray physician reports a BPP of 8 out of 8. heart rate 132 bpm. JOHN is normal at 10.3 cm. US/US OB BPP w non-stress IMPRESSION: BPP 8 out of 8. Impression dictated by: Robert Ku Jr., D.O.12/23/2024 7:06 PM Dictation [facility] Electronically authenticated by: [id number] Y Date: 12/23/2024 19:06 Dictated By: Robert Ku M.D. Signed By: 12/23/241908 DD/ 05 TD/TT: Crust Sorter: [facility] Radiology Study observation (narrative) [facility] US OB BPP W NON-STRESS Ordered By: Radiologist Radiology on 12-23-2024 [facility] Work Phone: US OB GROWTHon 12-23-2024 [place] [address] Ultrasound Report Signed Patient: PHILLIP NORIEGA MR#: [id number] : 1995 Acct:[id number] Age/Sex: 29 / F ADM Date: 12/23/24 Loc: US Attending Dr: Jake Miramontes D.O. Ordering Physician: Jake Miramontes D.O. Date of Service: 12/23/24 Procedure(s): US OB growth Accession Number(s): [id number] cc: Jake Miramontes D.O.; Physician,Non-Staff Patti The [place] [phone] Patient Name: PHILLIP NORIEGA MRN: [facility]:[id number] date: 1995 Sex: F Assigned Patient Location: [facility] Current Patient Location: Accession/Order Number: [id number] Exam Date: 12/23/2024 19:07 Report Date: 12/23/2024 19:09 At the request of: JAKE FE DO Procedure: US OB growth Exam: Growth ultrasound. Reason for exam: Excessive growth. COMPARISON: Scrotal ultrasound 10/15/2024. TECHNIQUE: Transabdominal imaging of the gravid uterus was obtained. FINDINGS: Single live intrauterine measuring 39 weeks 6 days by anatomic measurements. Head and abdominal circumference is greater than 97th percentile. Estimated weight is 4027 g which is greater than 97th percentile. JOHN is normal at 10.26 cm. heart rate is 132 bpm. position is cephalic at time of scanning. US/US OB growth IMPRESSION: Single live intrauterine 39 weeks 6 days by anatomic measurements. Impression dictated by: Robert Ku Jr., D.O.12/23/2024 7:09 PM Dictation Location: [employer] Electronically authenticated by: [id number] Y Date: 12/23/2024 19:09 Dictated By: Robert Ku M.D. Signed By: 12/23/241911 DD/ 08 TD/TT: Crust Sorter: [facility] Radiology, Radiologist, MD - 12/23/2024 [place] [address] Ultrasound Report Signed Patient: PHILLIP NORIEGA MR#: [id number] : 1995 Acct:[id number] Age/Sex: 29 / F ADM Date: 12/23/24 Loc: US Attending Dr: Jake Miramontes D.O. Ordering Physician: Jake Miramontes D.O. Date of Service: 12/23/24 Procedure(s): US OB growth Accession Number(s): [id number] cc: Jake Miramontes D.O.; Physician,Non-Staff Patti The [place] [phone] Patient Name: PHILLIP NORIEGA MRN: [facility]:[id number] date: 1995 Sex: F Assigned Patient Location: [facility] Current Patient Location: US Accession/Order Number: [id number] Exam Date: 12/23/2024 19:07 Report Date: 12/23/2024 19:09 At the request of: JAKE MIRAMONTES DO Procedure: US OB growth Exam: Growth ultrasound. Reason for exam: Excessive growth. COMPARISON: Scrotal ultrasound 10/15/2024. TECHNIQUE: Transabdominal imaging of the gravid uterus was obtained. FINDINGS: Single live intrauterine measuring 39 weeks 6 days by anatomic measurements. Head and abdominal circumference is greater than 97th percentile. Estimated weight is 4027 g which is greater than 97th percentile. JOHN is normal at 10.26 cm. heart rate is 132 bpm. position is cephalic at time of scanning. US/US OB growth IMPRESSION: Single live intrauterine 39 weeks 6 days by anatomic measurements. Impression dictated by: Michelle Brito Jr..Luis Alberto12/23/2024 7:09 PM Dictation Location: [employer] Electronically authenticated by: [id number] Y Date: 12/23/2024 19:09 Dictated By: Robert Ku M.D. Signed By: 12/23/241911 DD/ 08 TD/TT: Crust Sorter: [facility] Radiology Study observation (narrative) [facility] US OB GROWTHOrdered By: Annetta alves Radiology on 12-23-2024 [facility] Work Phone: ALL MISCELLANEOUS TESTon MISCELLANEOUS TEST COMMENT . 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 Performed at: CB - [address] [id number] Grievance And Appeals Coordinator: Aung Adams PhD, Phone: [phone] GROUP B STREP 360236 CULTURE, GROUP B STREP WITH SUSCEPTIBILITY [facility] OB BPP W NON-STRESS on 12-17-2024 [place] [address] Ultrasound Report Signed Patient: PHILLIP NORIEGA MR#: [id number] : 1995 Acct:[id number] Age/Sex: 29 / F ADM Date: 12/16/24 Loc: US Attending Dr: Jake Miramontes D.O. Ordering Physician: Jake Miramontes D.O. Date of Service: 12/16/24 Procedure(s): US OB BPP w non-stress Accession Number(s): [id number] cc: Jake Miramontes D.O.; Physician,Non-Staff M.DMicheal The [place] [phone] Patient Name: PHILLIP NORIEGA MRN: [id number]:[id number] date: 1995 Sex: F Assigned Patient Location: [facility] Current Patient Location: Accession/Order Number: [id number] Exam Date: 12/17/2024 10:08 Report Date: 12/17/2024 10:11 At the request of: JAKE MIRAMONTES DO Procedure: US OB BPP w non-stress BIOPHYSICAL PROFILE: CLINICAL INFORMATION: Excessive growth O36.60x0 COMPARISON: 12/10/2024 There is a fetus in cephalic presentation. Reported gestational age is 36 weeks 2 days. The heart rate sjnbuphi747 beats per minute. FINDINGS: TONE: 1 or [...] Tamy Jiménez M.D.12/17/2024 10:11 AM Dictation Location: [place] [address] Electronically authenticated by: [id number] Y Date: 12/17/2024 10:11 Dictated By: Tamy Jiménez M.D. Signed By: 12/17/24 1237 DD/ 1011 TD/TT: Crust Sorter: [facility] Radiology, Radiologist, MD - 12/17/2024 [place] [address] Ultrasound Report Signed Patient: PHILLIP NORIEGA MR#: [id number] : 1995 Acct:[id number] Age/Sex: 29 / F ADM Date: 12/16/24 Loc: US Attending Dr: Jake Miramontes D.O. Ordering Physician: Jake Miramontes D.O. Date of Service: 12/16/24 Procedure(s): US OB BPP w non-stress Accession Number(s): [id number] cc: Jake Miramontes D.O.; Physician,Non-Staff Patti [facility] [place] [address] Patient Name: PHILLIP NORIEGA MRN: [facility]:[id number] date: 1995 Sex: F Assigned Patient Location: [facility] Current Patient Location: Accession/Order Number: [id number] Exam Date: 12/17/2024 10:08 Report Date: 12/17/2024 10:11 At the request of: JAKE MIRAMONTES DO Procedure: US OB BPP w non-stress BIOPHYSICAL PROFILE: CLINICAL INFORMATION: Excessive growth O36.60x0 COMPARISON: 12/10/2024 There is a fetus in cephalic presentation. Reported gestational age is 36 weeks 2 days. The heart rate [id number] beats per minute. FINDINGS: TONE: 1 or [...] Tamy Jiménez M.D.12/17/2024 10:11 AM Dictation Location: [place] [address] Electronically authenticated by: [id number] Y Date: 12/17/2024 10:11 Dictated By: Tamy Jiménez M.D. Signed By: 12/17/24 1237 DD/ 1011 TD/TT: Crust Sorter: [facility] Radiology Study observation (narrative) [facility] OB BPP W NON-STRESS Ordered By: Radiologist Radiology on 12-17-2024 [facility] Work Phone: Urinalysis macro (dipstick) panel (U)on 12-16-2024 Bilirubin, UA Negative Negative - 4(70) +++ mg/dL [facility] Blood, UA Negative Negative - 50 Nathanael/mcL [facility] Clarity, UA Clear [facility] Color, UA Ammy [facility] Glucose, UA Negative Negative - 1999(110) ++++ mg/dL [facility] Interpretation and review of laboratory results Abnormal [facility] Ketones, UA Negative Negative - 160(16) ++++ mg/dL [facility] Leukocytes, UA Positive Negative - 500+++ Annie/mcL [facility] Comment on above: small Nitrite, UA Negative Negative - Positive [facility] pH, UA 5.5 5 - 9 [facility] Protein, UA Trace Negative - 1999(20) ++++ mg/dL [facility] Spec Grav, UA 1.025 1 - 1.03 [facility] Urobilinogen, UA 0.2 0.2 - 12 mg/dL [facility] OB BPP W NON-STRESS on 12-10-[address] [address] Ultrasound Report Signed Patient: PHILLIP NORIEGA MR#: [id number] : 1995 Acct:[id number] Age/Sex: 29 / F ADM Date: 12/10/24 Loc: [facility] 250-[address]: Jake Miramontes D.O. Ordering Physician: Jake Miramontes D.O. Date of Service: 12/10/24 Procedure(s): US OB BPP w non-stress Accession Number(s): [id number] cc: Jake Miramontes D.O.; Physician,Non-Staff Patti [place] [address] Patient Name: PHILLIP NORIEGA MRN: [facility]:[id number] date: 1995 Sex: F Assigned Patient Location: [facility] Current Patient Location: [facility] Accession/Order Number: [id number] Exam Date: 12/10/2024 10:46 Report Date: 12/10/2024 [...] Lynn M.D. Signed By: 12/10/24 1128 DD/ 24 TD/TT: Crust Sorter: [facility] Radiology, Radiologist, MD - 12/10/2024 [place] [address] Ultrasound Report Signed Patient: PHILLIP NORIEGA MR#: [id number] : 1995 Acct:[id number] Age/Sex: 29 / F ADM Date: 12/10/24 Loc: [facility] 250-[address]: Jake Miramontes D.O. Ordering Physician: Jake Miramontes D.O. Date of Service: 12/10/24 Procedure(s): US OB BPP w non-stress Accession Number(s): [id number] cc: Jake Miramontes D.O.; Physician,Non-Staff Patti [place] [address] Patient Name: PHILLIP NORIEGA MRN: [facility]:[id number] date: 1995 Sex: F Assigned Patient Location: [facility] Current Patient Location: [facility] Accession/Order Number: [id number] Exam Date: 12/10/2024 10:46 Report Date: 12/10/2024 [...] Lynn M.D. Signed By: 12/10/24 1128 DD/ 112 TD/TT: Crust Sorter: [facility] Radiology Study observation (narrative) [facility] US OB BPP W NON-STRESS Ordered By: Radiologist Radiology on 12-10-2024 [facility] Work Phone: Urinalysis macro (dipstick) panel (U)on 12-02-2024 Bilirubin, UA Negative Negative - 4(70) +++ mg/dL [facility] Blood, UA Negative Negative - 50 Nathanael/mcL [facility] Clarity, UA Clear [facility] Color, UA Yellow [facility] Glucose, UA Negative Negative - 1999(110) ++++ mg/dL [facility] Interpretation and review of laboratory results Abnormal [facility] Ketones, UA Negative Negative - 160(16) ++++ mg/dL [facility] Leukocytes, UA Trace Negative - 500+++ Annie/mcL [facility] Nitrite, UA Negative Negative - Positive [facility] pH, UA 7 5 - 9 [facility] Protein, UA Trace Negative - 1999(20) ++++ mg/dL [facility] Spec Grav, UA 1.025 1 - 1.03 [facility] Urobilinogen, UA 1.0 0.2 - 12 mg/dL [facility] Urinalysis macro (dipstick) panel (U)on 11-18-2024 Bilirubin, UA Negative Negative - 4(70) +++ mg/dL [facility] Blood, UA Negative Negative - 50 Nathanael/mcL [facility] Clarity, UA Clear [facility] Color, UA Yellow [facility] Glucose, UA Negative Negative - 1999(110) ++++ mg/dL [facility] Interpretation and review of laboratory results Abnormal [facility] Ketones, UA Negative Negative - 160(16) ++++ mg/dL [facility] Leukocytes, UA Trace Negative - 500+++ Annie/mcL [facility] Nitrite, UA Negative Negative - Positive [facility] pH, UA 6.5 5 - 9 [facility] Protein, UA Negative Negative - 1999(20) ++++ mg/dL [facility] Spec Grav, UA 1.025 1 - 1.03 [facility] Urobilinogen, UA 0.2 0.2 - 12 mg/dL [facility] CBC AND AUTO DIFFon 11-11-19 25 ABSOLUTE BASOPHIL 0.0 X10E9/L Normal 0.0-0.2 [facility] Comment on above: Performed By: #### 3 8476-8 #### [facility] ([id number]) [address] [place] [address], [place] [address] #### 2839-9 #### [facility] ([id number]) [address], [address] [place] [address] ABSOLUTE NEUTROPHIL 7.2 X10E9/L High 1.5-6.6 [facility] Comment on above: Performed By: #### 3 8476-8 #### [facility] ([id number]) [address] [place] [address] #### 2839-9 #### [facility] ([id number]) [address], [address] [place] [address] Basophils/100 WBC (Bld) 0.3 % Normal [facility] Comment on above: Performed By: #### 3 8476-8 #### [facility] ([id number]) [address] [place] [address] #### 2839-9 #### [facility] ([id number]) [address], [address] [place] [address] Eosinophils (Bld) [#/Vol] 0.3 10*3/uL Normal 0.0-0.4 [facility] Comment on above: Performed By: #### 3 8476-8 #### [facility] ([id number]) [address] [place] [address] #### 2839-9 #### [facility] ([id number]) [address], [address] [place] [address] Eosinophils/100 WBC (Bld) 2.9 % Normal [facility] Comment on above: Performed By: #### 3 8476-8 #### [facility] ([id number]) [address] [place] [address] #### 2839-9 #### [facility] ([id number]) [address], [address] [place] [address] Erythrocyte distribution width (RBC) [Ratio] 12.5 % Normal 11.5-15.0 [facility] Comment on above: Performed By: #### 3 8476-8 #### [facility] ([id number]) [address] [place] [address] #### 2839-9 #### [facility] ([id number]) [address] [place] [address] Hematocrit (Bld) [Volume fraction] 36.8 % Normal 35-47 [facility] Comment on above: Performed By: #### 3 8476-8 #### [facility] ([id number]) [address] [place] [address] #### 2839-9 #### [facility] ([id number]) [address] [place] [address] Hemoglobin (Bld) [Mass/Vol] 12.7 g/dL Normal 11.7-15.5 [facility] Comment on above: Performed By: #### 3 8476-8 #### [facility] ([id number]) [address] [place] [address] #### 2839-9 #### [facility] ([id number]) [address] [place] [address] Lymphocytes (Bld) [#/Vol] 1.9 10*3/uL Normal 1.0-3.5 [facility] Comment on above: Performed By: #### 3 8476-8 #### [facility] ([id number]) [address] [place] [address] #### 2839-9 #### [facility] ([id number]) [address] [place] [address] Lymphocytes/100 WBC (Bld) 18.7 % Normal [facility] Comment on above: Performed By: #### 3 8476-8 #### [facility] ([id number]) [address] [place] [address] #### 2839-9 #### [facility] ([id number]) [address], [address] [place] [address] MCH (RBC) [Entitic mass] 32.5 pg Normal 27-34 [facility] Comment on above: Performed By: #### 3 8476-8 #### [facility] ([id number]) [address] [place] [address] #### 2839-9 #### [facility] ([id number]) [address] [facility], [address] [place] [address] MCHC (RBC) [Mass/Vol] 34.5 g/dL Normal 32-36 [facility] Comment on above: Performed By: #### 3 8476-8 #### [facility] ([id number]) [address] [place] [address] #### 2839-9 #### [facility] ([id number]) [address] [facility], [address] [place] [address] MCV (RBC) [Entitic vol] 94 fL Normal 80-100 [facility] Comment on above: Performed By: #### 3 8476-8 #### [facility] ([id number]) [address] [place] [address] #### 2839-9 #### [facility] ([id number]) [address], [address] [place] [address] Monocytes (Bld) [#/Vol] 0.6 10*3/uL Normal 0-0.9 [facility] Comment on above: Performed By: #### 3 8476-8 #### [facility] ([id number]) [address] [place] [address] #### 2839-9 #### [facility] ([id number]) [address] [place] [address] Monocytes/100 WBC (Bld) 6.4 % Normal [facility] Comment on above: Performed By: #### 3 8476-8 #### [facility] ([id number]) [address] [place] [address] #### 2839-9 #### [facility] ([id number]) [address] [place] [address] Neutrophils/100 WBC (Bld) 71.7 % Normal [facility] Comment on above: Performed By: #### 3 8476-8 #### [facility] ([id number]) [address] [place] [address] #### 2839-9 #### [facility] ([id number]) [address] [place] [address] Platelet mean volume (Bld) [Entitic vol] 7.3 fL Normal 7-12 [facility] Comment on above: Performed By: #### 3 8476-8 #### [facility] ([id number]) [address] [place] [address] #### 2839-9 #### [facility] ([id number]) [address] [place] [address] Platelets (Bld) [#/Vol] 218 10*3/uL Normal 150-450 [facility] Comment on above: Performed By: #### 3 8476-8 #### [facility] ([id number]) [address] [place] [address] #### 2839-9 #### [facility] ([id number]) [address] [place] [address] RBC COUNT 3.89 X10E12/L Normal 3.80-5.20 [facility] Comment on above: Performed By: #### 3 8476-8 #### [facility] ([id number]) [address] [place] [address] #### 2839-9 #### [facility] ([id number]) [address], [address] [place] [address] WBC (Bld) [#/Vol] 10.1 10*3/uL Normal 4.0-11.0 [facility] Comment on above: Performed By: #### 3 8476-8 #### [facility] ([id number]) [address] [place] [address] #### 2839-9 #### [facility] ([id number]) [address] [address] [place] [address] CBC W Auto Differential pane l (Bld)on 11-11-2024 ABSOLUTE BASOPHIL 0 [facility] Comment on above: PERFORMED AT [place] [id number],[place] [address] Basophils/100 WBC (Bld) 0.3 % [facility] Eosinophils (Bld) [#/Vol] 0.3 10*3/uL [facility] Eosinophils/100 WBC (Bld) 2.9 % [facility] Erythrocyte distribution width (RBC) [Ratio] 12.5 % 11.5 - 15.0 % [facility] Hematocrit (Bld) [Volume fraction] 36.8 % 35 - 47 % [facility] Hemoglobin (Bld) [Mass/Vol] 12.7 g/dL 11.7 - 15.5 g/dL [facility] Interpretation and review of laboratory results Abnormal [facility] Lymphocytes (Bld) [#/Vol] 1.9 10*3/uL [facility] Lymphocytes/100 WBC (Bld) 18.7 % [facility] MCH (RBC) [Entitic mass] 32.5 pg 27 - 34 pg [facility] MCHC (RBC) [Mass/Vol] 34.5 g/dL 32 - 36 g/dL [facility] MCV (RBC) [Entitic vol] 94 fL 80 - 100 fL [facility] Monocytes (Bld) [#/Vol] 0.6 10*3/uL [facility] Monocytes/100 WBC (Bld) 6.4 % [facility] Neutrophils (Bld) [#/Vol] 7.2 10*3/uL High [facility] Neutrophils/100 WBC (Bld) 71.7 % [facility] Platelet mean volume (Bld) [Entitic vol] 7.3 fL 7 - 12 fL [facility] Platelets (Bld) [#/Vol] 218 10*3/uL [facility] RBC (Bld) [#/Vol] 3.89 10*6/uL [facility] WBC corrected for nucl RBC Auto (Bld) [#/Vol] 10.1 [facility] Urinalysis macro (dipstick) panel (U)on 11-04-2024 Bilirubin, UA Negative Negative - 4(70) +++ mg/dL [facility] Blood, UA Negative Negative - 50 Nathanael/mcL [facility] Clarity, UA Clear [facility] Color, UA Yellow [facility] Glucose, UA Negative Negative - 1999(110) ++++ mg/dL [facility] Interpretation and review of laboratory results Abnormal [facility] Ketones, UA Negative Negative - 160(16) ++++ mg/dL [facility] Leukocytes, UA Trace Negative - 500+++ Annie/mcL [facility] Nitrite, UA Negative Negative - Positive [facility] pH, UA 6 5 - 9 [facility] Protein, UA Positive Negative - 1999(20) ++++ mg/dL [facility] Comment on above: trace Spec Grav, UA 1.03 1 - 1.03 [facility] Urobilinogen, UA 0.2 0.2 - 12 mg/dL [facility] Urinalysis macro (dipstick) panel (U)on 10-22-2024 Bilirubin, UA Negative Negative - 4(70) +++ mg/dL [facility] Blood, UA Negative Negative - 50 Nathanael/mcL [facility] Clarity, UA Clear [facility] Color, UA Yellow [facility] Glucose, UA Negative Negative - 1999(110) ++++ mg/dL [facility] Interpretation and review of laboratory results Abnormal [facility] Ketones, UA Negative Negative - 160(16) ++++ mg/dL [facility] Leukocytes, UA Positive Negative - 500+++ Annie/mcL [facility] Comment on above: small Nitrite, UA Negative Negative - Positive [facility] pH, UA 6.5 5 - 9 [facility] Protein, UA Negative Negative - 1999(20) ++++ mg/dL [facility] Spec Grav, UA 1.025 1 - 1.03 [facility] Urobilinogen, UA 1.0 0.2 - 12 mg/dL [facility] Urinalysis macro (dipstick) panel (U)on 09-29-2024 Bilirubin, UA Negative Negative - 4(70) +++ mg/dL [facility] Blood, UA Negative Negative - 50 Nathanael/mcL [facility] Clarity, UA Clear [facility] Color, UA Yellow [facility] Glucose, UA Negative Negative - 1999(110) ++++ mg/dL [facility] Interpretation and review of laboratory results Normal [facility] Ketones, UA Negative Negative - 160(16) ++++ mg/dL [facility] Leukocytes, UA Negative Negative - 500+++ Annie/mcL [facility] Nitrite, UA Negative Negative - Positive [facility] pH, UA 7 5 - 9 [facility] Protein, UA Negative Negative - 1999(20) ++++ mg/dL [facility] Spec Grav, UA 1.025 1 - 1.03 [facility] Urobilinogen, UA 1.0 0.2 - 12 mg/dL [facility] Urinalysis macro (dipstick) panel (U)on 09-01-2024 Bilirubin, UA Negative Negative - 4(70) +++ mg/dL [facility] Blood, UA Negative Negative - 50 Nathanael/mcL [facility] Clarity, UA Clear [facility] Color, UA Yellow [facility] Glucose, UA Negative Negative - 1999(110) ++++ mg/dL [facility] Interpretation and review of laboratory results Abnormal [facility] Ketones, UA Negative Negative - 160(16) ++++ mg/dL [facility] Leukocytes, UA Trace Negative - 500+++ Annie/mcL [facility] Nitrite, UA Negative Negative - Positive [facility] pH, UA 6 5 - 9 [facility] Protein, UA Negative Negative - 1999(20) ++++ mg/dL [facility] Spec Grav, UA 1.03 1 - 1.03 [facility] Urobilinogen, UA 0.2 0.2 - 12 mg/dL [facility] CBC AND AUTO DIFFon 10-30-20 24 ABSOLUTE BASOPHIL 0.0 X10E9/L Normal 0.0-0.2 [facility] Comment on above: Performed By: #### 3 8476-8 #### [facility] ([id number]) [address] [place] [address] #### 2839-9 #### [facility] ([id number]) [address] [place] [address], [address] [place] [address] ABSOLUTE NEUTROPHIL 5.8 X10E9/L Normal 1.5-6.6 [facility] Comment on above: Performed By: #### 3 8476-8 #### [facility] ([id number]) [address] [place] [address] #### 2839-9 #### [facility] ([id number]) [address] [place] [address], [address] [place] [address] Basophils/100 WBC (Bld) 0.2 % Normal [facility] Comment on above: Performed By: #### 3 8476-8 #### [facility] ([id number]) [address] [place] [address] 107[address] #### 2839-9 #### [facility] ([id number]) [address] [place] [address], [address] [place] [address] Eosinophils (Bld) [#/Vol] 0.2 10*3/uL Normal 0.0-0.4 [facility] Comment on above: Performed By: #### 3 8476-8 #### [facility] ([id number]) [address] [place] [address] #### 2839-9 #### [facility] ([id number]) [address], [address] [place] [address] Eosinophils/100 WBC (Bld) 2.9 % Normal [facility] Comment on above: Performed By: #### 3 8476-8 #### [facility] ([id number]) [address] [place] [address] 73[address] #### 2839-9 #### [facility] ([id number]) [address], [address] [place] [address] Erythrocyte distribution width (RBC) [Ratio] 13.0 % Normal 11.5-15.0 [facility] Comment on above: Performed By: #### 3 8476-8 #### [facility] ([id number]) [address] [place] [address] 14846 #### 2839-9 #### [facility] ([id number]) [address], [address] [place] [address] Hematocrit (Bld) [Volume fraction] 31.5 % Low 35-47 [facility] Comment on above: Performed By: #### 3 8476-8 #### [facility] ([id number]) [address] [place] [address] #### 2839-9 #### [facility] ([id number]) [address], [address] [place] [address] Hemoglobin (Bld) [Mass/Vol] 10.8 g/dL Low 11.7-15.5 [facility] Comment on above: Performed By: #### 3 8476-8 #### [facility] ([id number]) [address] [place] [address] #### 2839-9 #### [facility] ([id number]) [address], [address] [place] [address] Lymphocytes (Bld) [#/Vol] 1.3 10*3/uL Normal 1.0-3.5 [facility] Comment on above: Performed By: #### 3 8476-8 #### [facility] ([id number]) [address] [place] [address] 57567 #### 2839-9 #### [facility] ([id number]) [address], [address] [place] [address] Lymphocytes/100 WBC (Bld) 16.5 % Normal [facility] Comment on above: Performed By: #### 3 8476-8 #### [facility] ([id number]) [address] [place] [address] #### 2839-9 #### [facility] ([id number]) [address], [address] [place] [address] MCH (RBC) [Entitic mass] 32.6 pg Normal 27-34 [facility] Comment on above: Performed By: #### 3 8476-8 #### [facility] ([id number]) [address] [place] [address] 23125 #### 2839-9 #### [facility] ([id number]) [address], [address] [place] [address] MCHC (RBC) [Mass/Vol] 34.4 g/dL Normal 32-36 [facility] Comment on above: Performed By: #### 3 8476-8 #### [facility] ([id number]) [address] [place] [address] 01840 #### 2839-9 #### [facility] ([id number]) [address], [address] [place] [address] MCV (RBC) [Entitic vol] 95 fL Normal 80-100 [facility] Comment on above: Performed By: #### 3 8476-8 #### [facility] ([id number]) [address] [place] [address] 7[address]60 #### 2839-9 #### [facility] ([id number]) [address] [place] [address] Monocytes (Bld) [#/Vol] 0.6 10*3/uL Normal 0-0.9 [facility] Comment on above: Performed By: #### 3 8476-8 #### [facility] ([id number]) [address] [place] [address] 7[address] #### 2839-9 #### [facility] ([id number]) [address], [address] [place] [address] Monocytes/100 WBC (Bld) 8.0 % Normal [facility] Comment on above: Performed By: #### 3 8476-8 #### [facility] ([id number]) [address] [place] [address] 09175 #### 2839-9 #### [facility] ([id number]) [address], [address] [place] [address] Neutrophils/100 WBC (Bld) 72.4 % Normal [facility] Comment on above: Performed By: #### 3 8476-8 #### [facility] ([id number]) [address] [place] [address] 89444 #### 2839-9 #### [facility] ([id number]) [address], [address] [place] [address] Platelet mean volume (Bld) [Entitic vol] 6.7 fL Low 7-12 [facility] Comment on above: Performed By: #### 3 8476-8 #### [facility] ([id number]) [address] [place] [address] 39511 #### 2839-9 #### [facility] ([id number]) [address] [place] [address] Platelets (Bld) [#/Vol] 188 10*3/uL Normal 150-450 [facility] Comment on above: Performed By: #### 3 8476-8 #### [facility] ([id number]) [address] [place] [address] 84371 #### 2839-9 #### [facility] ([id number]) [address], [address] [place] [address] RBC COUNT 3.33 X10E12/L Low 3.80-5.20 [facility] Comment on above: Performed By: #### 3 8476-8 #### [facility] ([id number]) [address] [place] [address] 89818 #### 2839-9 #### [facility] ([id number]) [address], [address] [place] [address] WBC (Bld) [#/Vol] 8.0 10*3/uL Normal 4.0-11.0 [facility] Comment on above: Performed By: #### 3 8476-8 #### [facility] ([id number]) [address] [place] [address] 87933 #### 2839-9 #### [facility] ([id number]) [address], [address] [place] [address] COMPREHENSIVE METABOLIC PANE Augustin 08-26-2024 Albumin [Mass/Vol] 2.9 g/dL Low 3.2-5.3 [facility] Comment on above: Performed By: #### 3 8476-8 #### [facility] ([id number]) [address] [place] [address] 97297 #### 2839-9 #### [facility] ([id number]) [address], [address] [place] [address] ALP [Catalytic activity/Vol] 34 U/L Low 39-130 [facility] Comment on above: Performed By: #### 3 8476-8 #### [facility] ([id number]) [address] [place] [address] 05719 #### 2839-9 #### [facility] ([id number]) [address], [address] [place] [address] ALT [Catalytic activity/Vol] 45 U/L High 0-31 [facility] Comment on above: Performed By: #### 3 8476-8 #### [facility] ([id number]) [address] [place] [address] 23503 #### 2839-9 #### [facility] ([id number]) [address], [address] [place] [address] Anion gap [Moles/Vol] 5 mmol/L Normal 5-15 [facility] Comment on above: Performed By: #### 3 8476-8 #### [facility] ([id number]) [address] [place] [address] 02322 #### 2839-9 #### [facility] ([id number]) [address], [address] [place] [address] AST [Catalytic activity/Vol] 44 U/L High 0-41 [facility] Comment on above: Performed By: #### 3 8476-8 #### [facility] ([id number]) [address] [place] [address] 86737 #### 2839-9 #### [facility] ([id number]) [address], [address] [place] [address] Bilirubin [Mass/Vol] 0.4 mg/dL Normal 0.3-1.2 [facility] Comment on above: Performed By: #### 3 8476-8 #### [facility] ([id number]) [address] [place] [address]39 #### 2839-9 #### [facility] ([id number]) [address], [address] [place] [address] Calcium [Mass/Vol] 8.4 mg/dL Low 8.5-10.5 [facility] Comment on above: Performed By: #### 3 8476-8 #### [facility] ([id number]) [address] [place] [address] 79971 #### 2839-9 #### [facility] ([id number]) [address], [address] [place] [address] Chloride [Moles/Vol] 105 mmol/L Normal 98-109 [facility] Comment on above: Performed By: #### 3 8476-8 #### [facility] ([id number]) [address] [place] [address] 31333 #### 2839-9 #### [facility] ([id number]) [address], [address] [place] [address] CO2 [Moles/Vol] 23 mmol/L Normal 22-32 [facility] Comment on above: Performed By: #### 3 8476-8 #### [facility] ([id number]) [address] [place] [address] 46496 #### 2839-9 #### [facility] ([id number]) [address] [place] [address] Creatinine [Mass/Vol] 0.68 mg/dL Normal 0.40-1.00 [facility] Comment on above: Result Comment: METH OD TRACEABLE TO IDMS STANDARD Performed By: #### 3 8476-8 #### [facility] ([id number]) [address] [place] [address] 09169 #### 2839-9 #### [facility] ([id number]) [address], [address] [place] [address] eGFR (CKD-EPI) NON-RACE DEPENDENT >90 Normal >59 [facility] Comment on above: Result Comment: Reported eGFR is based on the CKD-EPI 2020 equation that does not use a race coefficient. Performed By: #### 3 8476-8 #### [facility] ([id number]) [address] [place] [address] 59676 #### 2839-9 #### [facility] ([id number]) [address], [address] [place] [address] Glucose [Mass/Vol] 80 mg/dL Normal 65-99 [facility] Comment on above: Performed By: #### 3 8476-8 #### [facility] ([id number]) [address] [place] [address] 44212 #### 2839-9 #### [facility] ([id number]) [address], [address] [place] [address] Potassium [Moles/Vol] 3.9 mmol/L Normal 3.5-5.0 [facility] Comment on above: Performed By: #### 3 8476-8 #### [facility] ([id number]) [address] [place] [address] 36978 #### 2839-9 #### [facility] ([id number]) [address], [address] [place] [address] Protein [Mass/Vol] 5.8 g/dL Low 6.0-8.0 [facility] Comment on above: Performed By: #### 3 8476-8 #### [facility] ([id number]) [address] [place] [address] 66545 #### 2839-9 #### [facility] ([id number]) [address], [address] [place] [address] Sodium [Moles/Vol] 133 mmol/L Low 134-146 [facility] Comment on above: Performed By: #### 3 8476-8 #### [facility] ([id number]) [address] [place] [address] 58720 #### 2839-9 #### [facility] ([id number]) [address], [address] [place] [address] Urea nitrogen [Mass/Vol] 15 mg/dL Normal 5-23 [facility] Comment on above: Performed By: #### 3 8476-8 #### [facility] ([id number]) [address] [place] [address] 13136 #### 2839-9 #### [facility] ([id number]) [address], [address] [place] [address] LIPASEon 08-26-2024 Lipase [Catalytic activity/Vol] 36 U/L Normal 17-40 [facility] Comment on above: Performed By: #### 3 8476-8 #### [facility] ([id number]) [address] [place] [address] 94267 #### 2839-9 #### [facility] ([id number]) [address], [address] [place] [address] MAGNESIUMon 08-26-2024 Magnesium [Mass/Vol] 1.8 mg/dL Normal 1.8-2.6 [facility] Comment on above: Performed By: #### 3 8476-8 #### [facility] ([id number]) [address] [place] [address] 23010 #### 2839-9 #### [facility] ([id number]) [address] [facility], [address] [place] [address] Troponin I.cardiac High sens itivity method [Mass/Vol]on 08-26-2024 TROPONIN I, HIGH SENSITIVITY <2 Normal <16 [facility] Comment on above: Performed By: #### 3 8476-8 #### [facility] ([id number]) [address] [place] [address] 57109 #### 2839-9 #### [facility] ([id number]) [address] [facility], [address] [place] [address] THYROID PROFILEon 08-15-2024 Free T4 [Mass/Vol] 0.89 ng/dL Normal 0.61-1.60 [facility] Comment on above: Performed By: #### 3 8476-8 #### [facility] ([id number]) [address] [place] [address] 10111 #### 2839-9 #### [facility] ([id number]) [address] [facility], [address] [place] [address] TSH 3.03 uIU/mL Normal 0.49-4.67 [facility] Comment on above: Performed By: #### 3 8476-8 #### [facility] ([id number]) [address] [place] [address] 99806 #### 2839-9 #### [facility] ([id number]) [address] [facility], [address] [place] [address] URETHRITIS/DISCHARGE PLUS VA GINITIS (HTRX)on 08-04-2024 ATOPOBIUM VAGINAE 0.000 [facility] ATOPOBIUM VAGINAE Not detected [facility] BVAB 2,3 (BACTERIAL VAGINOSIS ASSOCIATED BACTERIA 2, 3); MOBILUNCUS SPP 0.000 [facility] BVAB 2,3 (BACTERIAL VAGINOSIS ASSOCIATED BACTERIA 2, 3); MOBILUNCUS SPP Not detected [facility] RAZIA ALBICANS, PARAPSILOSIS, TROPICALIS 0.000 [facility] RAZIA ALBICANS, PARAPSILOSIS, TROPICALIS Not detected [facility] RAZIA GLABRATA 0.000 [facility] RAZIA GLABRATA Not detected [facility] RAZIA KRUSEI 0.000 [facility] RAZIA KRUSEI Not detected [facility] CHLAMYDIA TRACHOMATIS 0.000 [facility] CHLAMYDIA TRACHOMATIS Not detected [facility] GARDNERELLA VAGINALIS 0.000 [facility] GARDNERELLA VAGINALIS Not detected N [facility] MEGASPHAERA (TYPES 1, 2) 0.000 [facility] MEGASPHAERA (TYPES 1, 2) Not detected [facility] MYCOPLASMA GENITALIUM 0.000 [facility] MYCOPLASMA GENITALIUM Not detected [facility] NEISSERIA GONORRHOEAE 0.000 [facility] NEISSERIA GONORRHOEAE Not detected N [facility] TRICHOMONAS VAGINALIS 0.000 [facility] TRICHOMONAS VAGINALIS Not detected N [facility] Urinalysis macro (dipstick) panel (U)on 08-03-2024 Bilirubin, UA Negative Negative - 4(70) +++ mg/dL [facility] Blood, UA Negative Negative - 50 Nathanael/mcL [facility] Clarity, UA Clear [facility] Color, UA Yellow [facility] Glucose, UA Negative Negative - 1999(110) ++++ mg/dL [facility] Interpretation and review of laboratory results Normal [facility] Ketones, UA Negative Negative - 160(16) ++++ mg/dL [facility] Leukocytes, UA Negative Negative - 500+++ Annie/mcL [facility] Nitrite, UA Negative Negative - Positive [facility] pH, UA 7.0 5 - 9 [facility] Protein, UA Negative Negative - 1999(20) ++++ mg/dL [facility] Spec Grav, UA 1.020 1 - 1.03 [facility] Urobilinogen, UA 1.0 0.2 - 12 mg/dL [facility] THYROID PROFILEon 07-18-2024 Free T4 [Mass/Vol] 0.80 ng/dL Normal 0.61-1.60 [facility] Comment on above: Performed By: #### 3 8476-8 #### [facility] ([id number]) [address] [place] [address], [place] [address] #### 2839-9 #### [facility] ([id number]) [address], [address] [place] [address] TSH 3.22 uIU/mL Normal 0.49-4.67 [facility] Comment on above: Performed By: #### 3 8476-8 #### [facility] ([id number]) [address] [place] [address], [place] [address] #### 2839-9 #### [facility] ([id number]) [address], [address] [place] [address] TSHon 07-18-2024 Free T4 [Mass/Vol] 0.80 ng/dL 0.61 - 1. 60 ng/dL [facility] Comment on above: PERFORMED AT [address],[place] [address] TSH Qn 3.22 m[IU]/L [facility] Urinalysis macro (dipstick) panel (U)on 07-07-2024 Bilirubin, UA Negative Negative - 4(70) +++ mg/dL [facility] Blood, UA Negative Negative - 50 Nathanael/mcL [facility] Clarity, UA Clear [facility] Color, UA Yellow [facility] Glucose, UA Negative Negative - 2000(110) ++++ mg/dL [facility] Interpretation and review of laboratory results Normal [facility] Ketones, UA Negative Negative - 160(16) ++++ mg/dL [facility] Leukocytes, UA Trace Negative - 500+++ Annie/mcL [facility] Nitrite, UA Negative Negative - Positive [facility] pH, UA 7.0 5 - 9 [facility] Protein, UA Negative Negative - 2000(20) ++++ mg/dL [facility] Spec Grav, UA 1.025 1 - 1.03 [facility] Urobilinogen, UA 0.2 0.2 - 12 mg/dL [facility] TSH ([place])on 06-20-2024 TSH Qn 2.32 m[IU]/L [facility] Comment on above: PERFORMED AT [address],[place] [address] [facility] TSH Qnon 06-20-2024 TSH 2.32 uIU/mL Normal 0.49-4.67 [facility] Comment on above: Performed By: #### 3 8476-8 #### [facility] ([id number]) [address] [place] [address] #### 2839-9 #### [facility] ([id number]) [address], [address] [place] [address] CBC AND AUTO DIFFon 06-06-20 ABSOLUTE BASOPHIL 0.0 X10E9/L Normal 0.0-0.2 [facility] Comment on above: Performed By: #### 3 8476-8 #### [facility] ([id number]) [address] [place] [address] #### 2839-9 #### [facility] ([id number]) [address], [address] [place] [address] ABSOLUTE NEUTROPHIL 4.8 X10E9/L Normal 1.5-6.6 [facility] Comment on above: Performed By: #### 3 8476-8 #### [facility] ([id number]) [address] [place] [address] #### 2839-9 #### [facility] ([id number]) [address], [address] [place] [address] Basophils/100 WBC (Bld) 0.3 % Normal [facility] Comment on above: Performed By: #### 3 8476-8 #### [facility] ([id number]) [address] [place] [address] 27828 #### 2839-9 #### [facility] ([id number]) [address], [address] [place] [address] Eosinophils (Bld) [#/Vol] 0.4 10*3/uL Normal 0.0-0.4 [facility] Comment on above: Performed By: #### 3 8476-8 #### [facility] ([id number]) [address] [place] [address] #### 2839-9 #### [facility] ([id number]) [address], [address] [place] [address] Eosinophils/100 WBC (Bld) 5.5 % Normal [facility] Comment on above: Performed By: #### 3 8476-8 #### [facility] ([id number]) [address] [place] [address] #### 2839-9 #### [facility] ([id number]) [address], [address] [place] [address] Erythrocyte distribution width (RBC) [Ratio] 13.1 % Normal 11.5-15.0 [facility] Comment on above: Performed By: #### 3 8476-8 #### [facility] ([id number]) [address] [place] [address] 15556 #### 2839-9 #### [facility] ([id number]) [address], [address] [place] [address] Hematocrit (Bld) [Volume fraction] 32.4 % Low 35-47 [facility] Comment on above: Performed By: #### 3 8476-8 #### [facility] ([id number]) [address] [place] [address] 14772 #### 2839-9 #### [facility] ([id number]) [address], [address] [place] [address] Hemoglobin (Bld) [Mass/Vol] 11.2 g/dL Low 11.7-15.5 [facility] Comment on above: Performed By: #### 3 8476-8 #### [facility] ([id number]) [address] [place] [address] 74[address] #### 2839-9 #### [facility] ([id number]) [address], [address] [place] [address] Lymphocytes (Bld) [#/Vol] 1.7 10*3/uL Normal 1.0-3.5 [facility] Comment on above: Performed By: #### 3 8476-8 #### [facility] ([id number]) [address] [place] [address] #### 2839-9 #### [facility] ([id number]) [address], [address] [place] [address] Lymphocytes/100 WBC (Bld) 21.9 % Normal [facility] Comment on above: Performed By: #### 3 8476-8 #### [facility] ([id number]) [address] [place] [address] 33[address] #### 2839-9 #### [facility] ([id number]) [address], [address] [place] [address] MCH (RBC) [Entitic mass] 31.7 pg Normal 27-34 [facility] Comment on above: Performed By: #### 3 8476-8 #### [facility] ([id number]) [address] [place] [address] #### 2839-9 #### [facility] ([id number]) [address], [address] [place] [address] MCHC (RBC) [Mass/Vol] 34.5 g/dL Normal 32-36 [facility] Comment on above: Performed By: #### 3 8476-8 #### [facility] ([id number]) [address] [place] [address] 23507 #### 2839-9 #### [facility] ([id number]) [address] [place] [address] MCV (RBC) [Entitic vol] 92 fL Normal 80-100 [facility] Comment on above: Performed By: #### 3 8476-8 #### [facility] ([id number]) [address] [place] [address] 88968 #### 2839-9 #### [facility] ([id number]) [address] [place] [address] Monocytes (Bld) [#/Vol] 0.8 10*3/uL Normal 0-0.9 [facility] Comment on above: Performed By: #### 3 8476-8 #### [facility] ([id number]) [address] [place] [address] 737[address] #### 2839-9 #### [facility] ([id number]) [address], [address] [place] [address] Monocytes/100 WBC (Bld) 10.4 % Normal [facility] Comment on above: Performed By: #### 3 8476-8 #### [facility] ([id number]) [address] [place] [address] 31672 #### 2839-9 #### [facility] ([id number]) [address] [place] [address] Neutrophils/100 WBC (Bld) 61.9 % Normal [facility] Comment on above: Performed By: #### 3 8476-8 #### [facility] ([id number]) [address] [place] [address] 02552 #### 2839-9 #### [facility] ([id number]) [address] [place] [address] Platelet mean volume (Bld) [Entitic vol] 6.9 fL Low 7-12 [facility] Comment on above: Performed By: #### 3 8476-8 #### [facility] ([id number]) [address] [place] [address] 21499 #### 2839-9 #### [facility] ([id number]) [address], [address] [place] [address] Platelets (Bld) [#/Vol] 172 10*3/uL Normal 150-450 [facility] Comment on above: Performed By: #### 3 8476-8 #### [facility] ([id number]) [address] [place] [address] 71258 #### 2839-9 #### [facility] ([id number]) [address], [address] [place] [address] RBC COUNT 3.54 X10E12/L Low 3.80-5.20 [facility] Comment on above: Performed By: #### 3 8476-8 #### [facility] ([id number]) [address] [place] [address] 706[address] #### 2839-9 #### [facility] ([id number]) [address], [address] [place] [address] WBC (Bld) [#/Vol] 7.7 10*3/uL Normal 4.0-11.0 [facility] Comment on above: Performed By: #### 3 8476-8 #### [facility] ([id number]) [address] [place] [address] 11002 #### 2839-9 #### [facility] ([id number]) [address], [address] [place] [address] COMPREHENSIVE METABOLIC PANE Augustin 06-06-2024 Albumin [Mass/Vol] 3.2 g/dL Normal 3.2-5.3 [facility] Comment on above: Performed By: #### 3 8476-8 #### [facility] ([id number]) [address] [place] [address] 6[address]59 #### 2839-9 #### [facility] ([id number]) [address], [address] [place] [address] ALP [Catalytic activity/Vol] 38 U/L Low 39-130 [facility] Comment on above: Performed By: #### 3 8476-8 #### [facility] ([id number]) [address] [place] [address] 58428 #### 2839-9 #### [facility] ([id number]) [address], [address] [place] [address] ALT [Catalytic activity/Vol] 54 U/L High 0-31 [facility] Comment on above: Performed By: #### 3 8476-8 #### [facility] ([id number]) [address] [place] [address] 16735 #### 2839-9 #### [facility] ([id number]) [address], [address] [place] [address] Anion gap [Moles/Vol] 1 mmol/L Low 5-15 [facility] Comment on above: Performed By: #### 3 8476-8 #### [facility] ([id number]) [address] [place] [address] 47831 #### 2839-9 #### [facility] ([id number]) [address], [address] [place] [address] AST [Catalytic activity/Vol] 35 U/L Normal 0-41 [facility] Comment on above: Performed By: #### 3 8476-8 #### [facility] ([id number]) [address] [place] [address] 81587 #### 2839-9 #### [facility] ([id number]) [address], [address] [place] [address] Bilirubin [Mass/Vol] 0.4 mg/dL Normal 0.3-1.2 [facility] Comment on above: Performed By: #### 3 8476-8 #### [facility] ([id number]) [address] [place] [address] 36419 #### 2839-9 #### [facility] ([id number]) [address], [address] [place] [address] Calcium [Mass/Vol] 8.3 mg/dL Low 8.5-10.5 [facility] Comment on above: Performed By: #### 3 8476-8 #### [facility] ([id number]) [address] [place] [address] 90828 #### 2839-9 #### [facility] ([id number]) [address], [address] [place] [address] Chloride [Moles/Vol] 103 mmol/L Normal 98-109 [facility] Comment on above: Performed By: #### 3 8476-8 #### [facility] ([id number]) [address] [place] [address] 47684 #### 2839-9 #### [facility] ([id number]) [address] [place] [address] CO2 [Moles/Vol] 26 mmol/L Normal 22-32 [facility] Comment on above: Performed By: #### 3 8476-8 #### [facility] ([id number]) [address] [place] [address] 89721 #### 2839-9 #### [facility] ([id number]) [address] [place] [address] Creatinine [Mass/Vol] 0.64 mg/dL Normal 0.40-1.00 [facility] Comment on above: Result Comment: METH OD TRACEABLE TO IDMS STANDARD Performed By: #### 3 8476-8 #### [facility] ([id number]) [address] [place] [address] 49494 #### 2839-9 #### [facility] ([id number]) [address], [address] [place] [address] eGFR (CKD-EPI) NON-RACE DEPENDENT >90 Normal >59 [facility] Comment on above: Result Comment: Reported eGFR is based on the CKD-EPI 2020 equation that does not use a race coefficient. Performed By: #### 3 8476-8 #### [facility] ([id number]) [address] [place] [address] 73536 #### 2839-9 #### [facility] ([id number]) [address], [address] [place] [address] Glucose [Mass/Vol] 79 mg/dL Normal 65-99 [facility] Comment on above: Performed By: #### 3 8476-8 #### [facility] ([id number]) [address] [place] [address] 75728 #### 2839-9 #### [facility] ([id number]) [address], [address] [place] [address] Potassium [Moles/Vol] 3.7 mmol/L Normal 3.5-5.0 [facility] Comment on above: Performed By: #### 3 8476-8 #### [facility] ([id number]) [address] [place] [address] 11272 #### 2839-9 #### [facility] ([id number]) [address], [address] [place] [address] Protein [Mass/Vol] 6.1 g/dL Normal 6.0-8.0 [facility] Comment on above: Performed By: #### 3 8476-8 #### [facility] ([id number]) [address] [place] [address] 77680 #### 2839-9 #### [facility] ([id number]) [address], [address] [place] [address] Sodium [Moles/Vol] 130 mmol/L Low 134-146 [facility] Comment on above: Performed By: #### 3 8476-8 #### [facility] ([id number]) [address] [place] [address] 41074 #### 2839-9 #### [facility] ([id number]) [address], [address] [place] [address] Urea nitrogen [Mass/Vol] 15 mg/dL Normal 5-23 [facility] Comment on above: Performed By: #### 3 8476-8 #### [facility] ([id number]) [address] [place] [address] 56299 #### 2839-9 #### [facility] ([id number]) [address], [address] [place] [address] HCG.beta subunit IA 3rd IS Q non 06-06-2024 HCG.beta subunit Qn 911210 m[IU]/mL Normal [facility] Comment on above: Result Comment: [...] neoplasms. Performed By: #### 3 8476-8 #### [facility] ([id number]) [address] [place] [address] 71428 #### 2839-9 #### [facility] ([id number]) [address], [address] [place] [address] URN MACROSCOPIC NURon 2023 BILIRUBIN CHLOÉ Negative Normal NEG [facility] Comment on above: Performed By: #### 3 8476-8 #### [facility] ([id number]) [address] [place] [address] 93411 #### 2839-9 #### [facility] ([id number]) [address], [address] [place] [address] BLOOD/HGB CHLOÉ Trace Abnormal NEG [facility] Comment on above: Performed By: #### 3 8476-8 #### [facility] ([id number]) [address] [place] [address] 06626 #### 2839-9 #### [facility] ([id number]) [address] [place] [address] GLUCOSE CHLOÉ Negative Normal NEG [facility] Comment on above: Performed By: #### 3 8476-8 #### [facility] ([id number]) [address] [place] [address] 66150 #### 2839-9 #### [facility] ([id number]) [address], [address] [place] [address] KETONES CHLOÉ Negative Normal NEG [facility] Comment on above: Performed By: #### 3 8476-8 #### [facility] ([id number]) [address] [place] [address] 04590 #### 2839-9 #### [facility] ([id number]) [address] [place] [address] LEUKOCYTE ESTERASE CHLOÉ Negative Normal NEG [facility] Comment on above: Performed By: #### 3 8476-8 #### [facility] ([id number]) [address] [place] [address] 20310 #### 2839-9 #### [facility] ([id number]) [address], [address] [place] [address] NITRITE CHLOÉ Negative Normal NEG [facility] Comment on above: Performed By: #### 3 8476-8 #### [facility] ([id number]) [address] [place] [address] 31895 #### 2839-9 #### [facility] ([id number]) [address], [address] [place] [address] PH CHLOÉ 5.0 Normal 5.0-8.5 [facility] Comment on above: Performed By: #### 3 8476-8 #### [facility] ([id number]) [address] [place] [address] 79947 #### 2839-9 #### [facility] ([id number]) [address] [place] [address] PROTEIN CHLOÉ Negative Normal NEG [facility] Comment on above: Performed By: #### 3 8476-8 #### [facility] ([id number]) [address] [place] [address] 94820 #### 2839-9 #### [facility] ([id number]) [address] [place] [address] SPECIFIC GRAVITY CHLOÉ >=1.030 Normal 1.003-1.035 [facility] Comment on above: Performed By: #### 3 8476-8 #### [facility] ([id number]) [address] [place] [address] 46711 #### 2839-9 #### [facility] ([id number]) [address], [address] [place] [address] UROBILINOGEN CHLOÉ 0.2 eu/dL Normal <1.1 [facility] Comment on above: Performed By: #### 3 8476-8 #### [facility] ([id number]) [address] [place] [address] 62913 #### 2839-9 #### [facility] ([id number]) [address], [address] [place] [address] HCG ( test) Ql (U)o n 05-27-2024 Beta HCG ( test) Ql (U) Positive Abnormal NEG [facility] Comment on above: Performed By: #### 3 8476-8 #### [facility] ([id number]) [address] [place] [address] 11624 #### 2839-9 #### [facility] ([id number]) [address], [address] [place] [address] URN MACROSCOPIC NURon 2023 BILIRUBIN CHLOÉ Negative Normal NEG [facility] Comment on above: Performed By: #### 3 5365-6, CMP, 3015-3, 55513-0 #### [facility] ([id number]) [address], [address] [place] [address] BLOOD/HGB CHLOÉ Small Abnormal NEG [facility] Comment on above: Performed By: #### 3 5365-6, CMP, 3, 33267-3 #### [facility] ([id number]) [address], [address] [place] [address] GLUCOSE CHLOÉ Negative Normal NEG [facility] Comment on above: Performed By: #### 3 5365-6, CMP, 3015-3, #### [facility] ([id number]) [address], [address] [place] [address] KETONES CHLOÉ Negative Normal NEG [facility] Comment on above: Performed By: #### 3 5365-6, [facility], 3015-3, #### [facility] ([id number]) [address], [address] [place] [address] LEUKOCYTE ESTERASE CHLOÉ Negative Normal NEG [facility] Comment on above: Performed By: #### 3 5365-6, [facility], 3, #### [facility] ([id number]) [address], [address] [place] [address] NITRITE CHLOÉ Negative Normal NEG [facility] Comment on above: Performed By: #### 3 5365-6, [facility], 3015-12, #### [facility] ([id number]) [address], [address] [place] [address] PH CHLOÉ 5.5 Normal 5.0-8.5 [facility] Comment on above: Performed By: #### 3 5365-6, [facility], 3015-12, #### [facility] ([id number]) [address], [address] [place] [address] PROTEIN CHLOÉ Negative Normal NEG [facility] Comment on above: Performed By: #### 3 5365-6, CMP, 3, #### [facility] ([id number]) [address], [address] [place] [address] SPECIFIC GRAVITY CHLOÉ >=1.030 Normal 1.003-1.035 [facility] Comment on above: Performed By: #### 3 5365-6, [facility], 3016-3, 75686-3 #### [facility] ([id number]) [address], [address] [place] [address] UROBILINOGEN CHLOÉ 1.0 eu/dL Normal <1.1 [facility] Comment on above: Performed By: #### 3 5365-6, [facility], 6-3, 06616-9 #### [facility] ([id number]) [address], [address] [place] [address] HCG.beta subunit IA 3rd IS Q non 05-14-2024 [place] [address] m[IU]/mL Normal [facility] Comment on above: Result [...] nontrophoblastic neoplasms. Performed By: #### 3 5365-6, [facility], 3016-3, 08609-2 #### [facility] ([id number]) [address], [address] [place] [address] HCG.beta subunit IA 3rd IS Q non 05-11-2024 [place] [address] m[IU]/mL Normal [facility] Comment on above: Result [...] nontrophoblastic neoplasms. Performed By: #### 3 5365-6, [facility], 3016-3, 90297-2 #### [facility] ([id number]) [address], [address] [place] [address] TSH Qnon 05-11-2024 TSH 1.06 uIU/mL Normal 0.49-4.67 [facility] Comment on above: Performed By: #### 3 5365-6, [facility], 3016-3, 98713-7 #### [facility] ([id number]) [address] [place] [address], [address] [place] [address] HCG.beta subunit IA 3rd IS Q non 05-08-2024 HCG.beta subunit Qn 6446 m[IU]/mL Normal Pr [facility] Comment on above: Result Comment: NEW [...] nontrophoblastic neoplasms. Performed By: #### 3 5365-6, [facility], 6-3, 76106-1 #### [facility] ([id number]) [address] [facility], [address] [place] [address] HCG.beta subunit IA 3rd IS Q non 05-06-2024 HCG.beta subunit Qn 3140 m[IU]/mL Normal Pr [facility] Comment on above: Result Comment: NEW [...] nontrophoblastic neoplasms. Performed By: #### 3 5365-6, [facility], 3016-3, 22324-0 #### [facility] ([id number]) [facility], [address] [place] [address] HCG.beta subunit IA 3rd IS Q non 05-01-2024 HCG.beta subunit Qn 560 m[IU]/mL Normal Pro [facility] Comment on above: Result Comment: NEW REFERENCE [...] Performed By: #### 3 5365-6, CMP, 3016-3, 72238-2 #### [facility] ([id number]) [address] [place] [address], [address] [place] [address] HCG.beta subunit IA 3rd IS Q non 04-28-2024 HCG.beta subunit Qn 159 m[IU]/mL Normal [facility] Comment on above: Result Comment: NEW REFERENCE [...] nontrophoblastic neoplasms. Performed By: #### 3 5365-6, [place], 3016-3, 57443-9 #### [facility] ([id number]) [address] [facility], [address] [place] [address] FREE T3on 02-14-2024 Free T3 [Mass/Vol] 3.94 pg/mL High 2.50-3.90 [facility] Comment on above: Performed By: #### 3 5365-6, [facility], 3016-3, 24056-7 #### [facility] ([id number]) [address], [address] [place] [address] THYROID PROFILEon 02-14-2024 Free T4 [Mass/Vol] 0.91 ng/dL Normal 0.61-1.60 [facility] Comment on above: Performed By: #### 3 5365-6, [facility], [facility], 71818-5 #### [facility] ([id number]) [address], [address] [place] [address] TSH 0.52 uIU/mL Normal 0.49-4.67 [facility] Comment on above: Performed By: #### 3 5365-6, [facility], [facility], 40393-4 #### [facility] ([id number]) [address], [address] [place] [address] THYROPEROXIDASE ABon 024 TPO Ab Qn 403 [IU]/mL High <10 [facility] Comment on above: Performed By: #### 3 5365-6, [facility], [facility], 89886-1 #### [facility] ([id number]) [address], [address] [address] Thyroid stimulating immunogl obulins Qn (S)on 02-14-2024 TSI See Below Normal [facility] Comment on above: Result Comment: [...] Clinical correlation is required. Test Performed By: [facility] [address] [place] [address] Loom Doffer: Patti Jacobs IIIIA #[id number] Performed By: #### 3 5365-6, CMP, 3016-3, 74428-4 #### [facility] ([id number]) [address], [address] [place] [address] ACUTE HEPATITIS PANELon 12-27 ANTI HCV W/PCR REFLX Non-Reactive Normal NRCT Pr [facility] Comment on above: Result Comment: If recent infection suspected, recommend repeat testing (>2 months). Ityhmk-xy-vyqryy ratio is <0.80. Performed By: #### 3 5365-6, CMP, 3016-3, #### [facility] ([id number]) [address], [address] [place] [address] HEPATITIS A IGM Non-Reactive Normal NRCT [facility] Comment on above: Performed By: #### 3 5365-6, CMP, 3016-3, #### [facility] ([id number]) [address], [address] [place] [address] HEPATITIS B CORE IGM Negative Normal NEG [facility] Comment on above: Performed By: #### 3 5365-6, CMP, 3016-3, #### [facility] ([id number]) [address], [address] [place] [address] HEPATITIS B SURF AG Negative Normal NEG [facility] Comment on above: Performed By: #### 3 5365-6, CMP, 3016-3, #### [facility] ([id number]) [address], [address] [place] [address] COMPREHENSIVE METABOLIC PANE Augustin 2024 Albumin [Mass/Vol] 3.8 g/dL Normal 3.2-5.3 [facility] Comment on above: Performed By: #### 3 5365-6, CMP, 3016-3, 99418-8 #### [facility] ([id number]) [address], [address] [place] [address] ALP [Catalytic activity/Vol] 48 U/L Normal 39-130 [facility] Comment on above: Performed By: #### 3 5365-6, CMP, 3016-3, 87874-0 #### [facility] ([id number]) [address], [address] [place] [address] ALT [Catalytic activity/Vol] 38 U/L High 0-31 [facility] Comment on above: Performed By: #### 3 5365-6, CMP, 3016-3, #### [facility] ([id number]) [address], [address] [place] [address] Anion gap [Moles/Vol] 9 mmol/L Normal 5-15 [facility] Comment on above: Performed By: #### 3 5365-6, CMP, 3016-3, 50996-5 #### [facility] ([id number]) [address], [address] [place] [address] AST [Catalytic activity/Vol] 32 U/L Normal 0-41 [facility] Comment on above: Performed By: #### 3 5365-6, CMP, 3016-3, #### [facility] ([id number]) [address], [address] [place] [address] Bilirubin [Mass/Vol] 0.9 mg/dL Normal 0.3-1.2 [facility] Comment on above: Performed By: #### 3 5365-6, CMP, 3016-3, 88830-3 #### [facility] ([id number]) [address], [address] [place] [address] Calcium [Mass/Vol] 8.8 mg/dL Normal 8.5-10.5 [facility] Comment on above: Performed By: #### 3 5365-6, [facility], 3015-3, 21067-0 #### [facility] ([id number]) [address], [address] [place] [address] Chloride [Moles/Vol] 104 mmol/L Normal 98-109 [facility] Comment on above: Performed By: #### 3 5365-6, [facility], 3015-3, #### [facility] ([id number]) [address], [address] [place] [address] CO2 [Moles/Vol] 26 mmol/L Normal 22-32 [facility] Comment on above: Performed By: #### 3 5365-6, [facility], 3015-3, #### [facility] ([id number]) [address], [address] [place] [address] Creatinine [Mass/Vol] 0.64 mg/dL Normal 0.40-1.00 [facility] Comment on above: Result Comment: METH OD TRACEABLE TO IDMS STANDARD Performed By: #### 3 5365-6, [facility], 3015-3, 91614-8 #### [facility] ([id number]) [address], [address] [place] [address] eGFR (CKD-EPI) NON-RACE DEPENDENT >90 Normal >59 [facility] Comment on above: Result Comment: Reported eGFR is based on the CKD-EPI 2021 equation that does not use a race coefficient. Performed By: #### 3 5365-6, [facility], 3015-3, #### [facility] ([id number]) [address], [address] [place] [address] Glucose [Mass/Vol] 80 mg/dL Normal 65-99 [facility] Comment on above: Performed By: #### 3 5365-6, [facility], 3015-3, #### [facility] ([id number]) [address], [address] [place] [address] Potassium [Moles/Vol] 3.7 mmol/L Normal 3.5-5.0 [facility] Comment on above: Performed By: #### 3 5365-6, CMP, 3016-3, 16610-7 #### [facility] ([id number]) [address], [address] [place] [address] Protein [Mass/Vol] 6.8 g/dL Normal 6.0-8.0 [facility] Comment on above: Performed By: #### 3 5365-6, CMP, 6-3, #### [facility] ([id number]) [address], [address] [place] [address] Sodium [Moles/Vol] 139 mmol/L Normal 134-146 [facility] Comment on above: Performed By: #### 3 5365-6, CMP, 6-3, #### [facility] ([id number]) [address], [address] [place] [address] Urea nitrogen [Mass/Vol] 11 mg/dL Normal 5-23 [facility] Comment on above: Performed By: #### 3 5365-6, CMP, 6-3, #### [facility] ([id number]) [address], [address] [place] [address] Lipid 1996 panelon 4 Cholesterol [Mass/Vol] 94 mg/dL Low 150-200 [facility] Comment on above: Performed By: #### 3 5365-6, CMP, 6-3, #### [facility] ([id number]) [address], [address] [place] [address] Cholesterol in HDL [Mass/Vol] 43 mg/dL Normal >39 [facility] Comment on above: Result Comment: HDL <40 mg/dL - High Risk HDL > or = 40mg/dL- Desirable HDL >60 mg/dL - Negative Risk Performed By: #### 3 5365-6, CMP, 3016-3, 81178-2 #### [facility] ([id number]) [address], [address] [place] [address] Cholesterol in LDL [Mass/Vol] 39 mg/dL Normal <130 [facility] Comment on above: Result Comment: LDL <100 mg/dL - Desirable LDL >160 mg/dL - High Risk Performed By: #### 3 5365-6, [facility], 3016-3, 72896-4 #### [facility] ([id number]) [address], [address] [place] [address] Cholesterol in VLDL [Mass/Vol] 12 mg/dL Normal 0-30 [facility] Comment on above: Performed By: #### 3 5365-6, [facility], 3016-3, 76369-3 #### [facility] ([id number]) [address], [address] [place] [address] CHOLESTEROL:HDL 2.2 Normal 1.0-5.0 [facility] Comment on above: Performed By: #### 3 5365-6, CMP, 3016-3, 17392-2 #### [facility] ([id number]) [address], [address] [place] [address] Triglyceride [Mass/Vol] 58 mg/dL Normal 27-150 [facility] Comment on above: Performed By: #### 3 5365-6, CMP, 3016-3, 39681-1 #### [facility] ([id number]) [address] [facility], [address] [place] [address] Mullerian inhibiting substan ce [Mass/Vol]on 2024 ANTI MULLERIAN HORM See Below Normal [facility] Comment on above: Result Comment: NOTE TEST RESULT FLAG UNIT REF.RANGE ------ Anti Mclean Hormone 0.54 L ng/mL 0.58-8.13 Test Performed By: [facility] [employer] [address] [place] [address] Loom Doffer: Eloy Dangelo III, M.D. CLIA #[id number] Performed By: #### 3 5365-6, [facility], 3016-3, 13920-4 #### [facility] ([id number]) [address] [place] [address], [address] [place] [address] Selenium [Mass/Vol]on 2023 SELENIUM, SER/PLASMA 108.6 ug/L Normal 23.0-190.0 [facility] Comment on above: Result Comment: NOTE INTERPRETIVE [...] developed and its performance characteristics determined by [employer]. It has not been cleared or approved by the US Food and Drug Administration. This test was performed in a CLIA certified laboratory and is intended for clinical purposes. Performed By: [employer] [address] [place] [address] Loom Doffer: Deangelo Rosario MD, PhD CLIA Number: [id number] Performed By: #### 3 5365-6, [facility], 3015-3, 87535-1 #### [facility] ([id number]) [address], [address] [place] [address] THYROID PROFILEon 2024 Free T4 [Mass/Vol] 0.67 ng/dL Normal 0.61-1.60 [facility] Comment on above: Performed By: #### 3 5365-6, [facility], 3015-3, 31946-2 #### [facility] ([id number]) [address], [address] [place] [address] TSH 2.55 uIU/mL Normal 0.49-4.67 [facility] Comment on above: Performed By: #### 3 5365-6, [facility], 3015-3, 96244-0 #### [facility] ([id number]) [address], [address] [place] [address] VITAMIN E, SER/PLon 01-24-20 VIT E(ALPHA-TOCOPHEROL) 7.6 mg/L Normal 5.5-18.0 [facility] Comment on above: Result Comment: NOTE This test was developed and its performance characteristics determined by [employer]. It has not been cleared or approved by the US Food and Drug Administration. This test was performed in a CLIA certified laboratory and is intended for clinical purposes. Performed By: #### 3 5365-6, [facility], 3015-3, 29767-5 #### [facility] ([id number]) [address], [address] [place] [address] VIT E(GAMMA-TOCOPHEROL) 0.3 mg/L Normal 0.0-6.0 [facility] Comment on above: Result Comment: NOTE Performed By: [employer] [address] [place] [address] Loom Doffer: Deangelo Rosario MD, PhD CLIA Number: [id number] Performed By: #### 3 5365-6, CMP, 3015-3, 75361-0 #### [facility] ([id number]) [address], [address] [place] [address] LIVER PANELon 01-18-2024 Albumin [Mass/Vol] 3.8 g/dL Normal 3.2-5.3 [facility] Comment on above: Performed By: #### 3 5365-6, CMP, 3015-3, #### [facility] ([id number]) [address], [address] [place] [address] ALP [Catalytic activity/Vol] 44 U/L Normal 39-130 [facility] Comment on above: Performed By: #### 3 5365-6, CMP, 3015-3, 25885-6 #### [facility] ([id number]) [address], [address] [place] [address] ALT [Catalytic activity/Vol] 33 U/L High 0-31 [facility] Comment on above: Performed By: #### 3 5365-6, CMP, 3015-3, 45440-6 #### [facility] ([id number]) [address], [address] [place] [address] AST [Catalytic activity/Vol] 30 U/L Normal 0-41 [facility] Comment on above: Performed By: #### 3 5365-6, CMP, 6-3, 73390-6 #### [facility] ([id number]) [address], [address] [place] [address] Bilirubin [Mass/Vol] 0.7 mg/dL Normal 0.3-1.2 [facility] Comment on above: Performed By: #### 3 5365-6, CMP, 3016-3, 02760-9 #### [facility] ([id number]) [address], [address] [place] [address] Bilirubin.direct [Mass/Vol] 0.2 mg/dL Normal 0.0-0.4 [facility] Comment on above: Performed By: #### 3 5365-6, [facility], [facility]6-3, 20860-1 #### [facility] ([id number]) [address], [address] [place] [address] Protein [Mass/Vol] 6.7 g/dL Normal 6.0-8.0 [facility] Comment on above: Performed By: #### 3 5365-6, [facility], [facility]6-3, 18294-5 #### [facility] ([id number]) [address], [address] [place] [address] MAGNESIUMon 01-18-2024 Magnesium [Mass/Vol] 1.7 mg/dL Low 1.8-2.6 [facility] Comment on above: Performed By: #### 3 5365-6, [facility], [facility]6-3, 77353-5 #### [facility] ([id number]) [address], [address] [place] [address] TSH Qnon 01-18-2024 TSH 1.07 uIU/mL Normal 0.49-4.67 [facility] Comment on above: Performed By: #### 3 5365-6, [facility], [facility]6-3, 73880-0 #### [facility] ([id number]) [address], [address] [place] [address] Vitamin D+Metabolites [Mass/ Vol]on 01-18-2024 VITAMIN D 25 HYD TOT 86.7 ng/mL Normal 30-100 [facility] Comment on above: Result Comment: Vitamin D status 25 [place] Vitamin D Deficiency <20 ng/mL Insufficiency 20-29 ng/mL Sufficiency 30-100 ng/mL Toxicity >100 ng/mL NOTE: A pediatric reference range has not been established by the release and technical records clerk of this kit. The [place] [employer] recommends a Vitamin D level of = or >20ng/mL in infants and children. Performed By: #### 3 5365-6, [place], 3016-3, 59871-0 #### [facility] ([id number]) [address] [facility], [address] [place] [address] US THYROIDon 01-06-2024 US THYROID US THYROID [...] Friend MD on 01/06/2024 6:53 AM Normal [facility] FREE T3on 01-03-2024 Free T3 [Mass/Vol] 3.48 pg/mL Normal 2.50-3.90 [facility] Comment on above: Performed By: #### 3 5365-6, [facility], 3016-3, 01763-7 #### [facility] ([id number]) [address] [facility], [address] [place] [address] Reference Lab Test IDon 03-0 CELIAC COMP CASCADE SEE COMMENTS 01/10/2024 10:26 PM Normal [facility] Comment on above: Result Comment: [...] instructions. Its performance characteristics were determined by [facility] in a manner consistent with CLIA requirements. This test has not been cleared or approved by the U.S. Food and Drug Administration. CLIA: [id number] CLIA Grievance And Appeals Coordinator: ALAN LOUIS MD,PhD Celiac Disease See Note Interpretation See Comment: Celiac disease probable. Consider biopsy. Test Performed by: [facility] [address] [place] [address] Grievance And Appeals Coordinator: Alan Louis M.D. Ph.D.; CLIA# [id number] Test Performed by: [facility] [address] [place] [address] Grievance And Appeals Coordinator: Alan Louis M.D. Ph.D.; CLIA# [id number] Performed By: #### 3 5365-6, [facility], 3016-3, 88078-2 #### [facility] ([id number]) [address] [facility], [address] [place] [address] THYROID PROFILEon 01-03-2024 Free T4 [Mass/Vol] 0.82 ng/dL Normal 0.61-1.60 [facility] Comment on above: Performed By: #### 3 5365-6, [facility], 3016-3, 73527-5 #### [facility] ([id number]) [address] [facility], [address] [place] [address] TSH 0.41 uIU/mL Low 0.49-4.67 [facility] Comment on above: Performed By: #### 3 5365-6, [facility], [address], 78639-6 #### [facility] ([id number]) [address] [facility], [address] [place] [address] tTG IgA IA Qn (S)on 01-03-20 24 ENDOMYSIAL ABS IGA Negative Normal Negative [facility] Comment on above: Result Comment: NOTE [...] as indicated by the Celiac Disease Comprehensive [place] ([place] Test Unit Code CDCOM). In addition serum IgA endomysial antibody may also be negative in gluten-sensitive patients (with celiac disease, dermatitis herpetiformis or other gluten-sensitive disorders), who adhere to a strict gluten-free diet. ADDITIONAL INFORMATION This test has been modified from the release and technical records clerk's instructions. Its performance characteristics were determined by [facility] in a manner consistent with CLIA requirements. This test has not been cleared or approved by the U.S. Food and Drug Administration. Test Performed by: [place] [id number] Grievance And Appeals Coordinator: Alan Louis M.D. Ph.D.; CLIA# [id number] Performed By: #### 3 5365-6, [facility], 6-3, 17678-5 #### [facility] ([id number]) [address] [facility], [address] [place] [address] FREE T3on 12-21-2023 Free T3 [Mass/Vol] 3.75 pg/mL Normal 2.50-3.90 [facility] Comment on above: Performed By: #### T HYR, 3051-0, 8099-4 #### [facility] ([id number]) [address] [facility], [address] [place] [address] #### 68979-9 #### [facility] ([id number]) [address] [place] [address] Mullerian inhibiting substan ce [Mass/Vol]on 12-21-2023 ANTI MULLERIAN HORM See Below Normal [facility] Comment on above: Result Comment: NOTE TEST RESULT FLAG UNIT REF.RANGE ------ Anti Mclean Hormone 0.37 L ng/mL 0.58-8.13 Test Performed By: [facility] [employer] [address] [place] [address] Loom Doffer: Eloy Dangelo III, M.D. CLIA #[id number] Performed By: #### 3 5365-6, [facility], 6-3, 33812-3 #### [facility] ([id number]) [address] [facility], [address] [place] [address] THYROID PROFILEon 12-21-2023 Free T4 [Mass/Vol] 0.94 ng/dL Normal 0.61-1.60 [facility] Comment on above: Performed By: #### Delma MERCHANT, 3051-0, 8099-4 #### [facility] ([id number]) [address] [facility], [address] [place] [address] #### 25750-1 #### [facility] ([id number]) [address] [place] [address] TSH 0.19 uIU/mL Low 0.49-4.67 [facility] Comment on above: Performed By: #### Delma MERCHANT, 3051-0, 8099-4 #### [facility] ([id number]) [address] [facility], [address] [place] [address] #### 92736-1 #### [facility] ([id number]) [address] [place] [address] THYROPEROXIDASE ABon 024 TPO Ab Qn 415 [IU]/mL High <10 [facility] Comment on above: Performed By: #### Delma MERCHANT, 3051-0, 8099-4 #### [facility] ([id number]) [address] [facility], [address] [place] [address] #### 78134-4 #### [facility] ([id number]) [address] [place] [address] Thyroid stimulating immunogl obulins Qn (S)on 12-21-2023 TSI See Below Normal [facility] Comment on above: Result Comment: [...] Clinical correlation is required. Test Performed By: [facility] [employer] [address] [place] [address] Loom Doffer: Eloy Dangelo III, M.D. CLIA #[id number] Performed By: #### 3 5365-6, [facility], 3016-3, 15863-8 #### [facility] ([id number]) [address] [place] [address], [address] [place] [address] Mullerian inhibiting substan ce [Mass/Vol]on 12-13-2023 ANTI MULLERIAN HORM See Below Normal [facility] Comment on above: Result Comment: NOTE TEST RESULT FLAG UNIT REF.RANGE ------ Anti Mclean Hormone 0.31 L ng/mL 0.58-8.13 Test Performed By: [facility] [employer] [address] [place] [address] Loom Doffer: Eloy Dangelo III, M.D. CLIA #[id number] Performed By: #### 3 8476-8 #### [facility] ([id number]) [address] [place] [id number] #### 2839-9 #### [facility] ([id number]) [address] [place] [address], [address] [place] [address] Progesterone [Mass/Vol]on PROGESTERONE 3.5 ng/mL Normal [facility] Comment on above: Result Comment: FEMALES: 1st Tri: 4.7-50.7 ng/ml 2nd Tri: 19.4-45.3 ng/ml MENSTRUATING FEMALES: Follicular: 0.3-1.5 ng/ml Mid Luteal: 5.2-18.6 ng/ml Post Jacy: <0.1-0.8 ng/ml Performed By: #### 3 8476-8 #### [facility] ([id number]) [address] [place] [address], [place] [address] #### 2839-9 #### [facility] ([id number]) [address] [facility], [address] [place] [address] US PELVIC WITH TRANSVAGINALo 12-13-2023 US PELVIC WITH TRANSVAGINAL US PELVIC [...] Friend MD on 12/13/2023 6:28 PM Normal [facility] Surgical Pathology Reporton 11-27-2023 Surgical Pathology Report (NOTE) Path Number: [id number] -- Diagnosis -- GALLBLADDER, CHOLECYSTECTOMY: -CHRONIC CHOLECYSTITIS -CHOLESTEROLOSIS -CHOLELITHIASIS Carlos A Olson D.O. Electronically Signed Out lj/11/28/2023 Clinical Information Pre-Op Diagnosis: CHOLECYSTITIS Operative Findings: [...] lesions or periductal lymph nodes are identified. Project Management Professor sections 1c. bladimir Naylor/анна2:11/27/2023 Microscopic Description Microscopic examination performed. Processing Lab: [address] [address] Interpretation Performed at [address] [address] SURGICAL PATHOLOGY CONSULTATION Patient Name: PHILLIP NORIEGA [facility] Rec: [id number] [facility] [employer] [facility] ANATOMIC PATHOLOGY [address] [place] [address]. [place], [place] [address] Normal [place] COMPREHENSIVE METABOLIC PANE Augustin 11-16-2023 Albumin [Mass/Vol] 3.7 g/dL Normal 3.2-5.3 [facility] Comment on above: Performed By: #### 3 5365-6, CMP, 6-3, 17447-7 #### [facility] ([id number]) [address], [address] [place] [address] ALP [Catalytic activity/Vol] 45 U/L Normal 39-130 [facility] Comment on above: Performed By: #### 3 5365-6, CMP, 3016-3, 07786-9 #### [facility] ([id number]) [address], [address] [place] [address] ALT [Catalytic activity/Vol] 51 U/L High 0-31 [facility] Comment on above: Performed By: #### 3 5365-6, CMP, 3016-3, #### [facility] ([id number]) [address], [address] [place] [address] Anion gap [Moles/Vol] 8 mmol/L Normal 5-15 [facility] Comment on above: Performed By: #### 3 5365-6, CMP, 3016-3, #### [facility] ([id number]) [address], [address] [place] [address] AST [Catalytic activity/Vol] 40 U/L Normal 0-41 [facility] Comment on above: Performed By: #### 3 5365-6, CMP, 6-3, #### [facility] ([id number]) [address], [address] [place] [address] Bilirubin [Mass/Vol] 0.7 mg/dL Normal 0.3-1.2 [facility] Comment on above: Performed By: #### 3 5365-6, CMP, 6-3, #### [facility] ([id number]) [address], [address] [place] [address] Calcium [Mass/Vol] 8.8 mg/dL Normal 8.5-10.5 [facility] Comment on above: Performed By: #### 3 5365-6, CMP, 6-3, #### [facility] ([id number]) [address], [address] [place] [address] Chloride [Moles/Vol] 106 mmol/L Normal 98-109 [facility] Comment on above: Performed By: #### 3 5365-6, CMP, 6-3, #### [facility] ([id number]) [address], [address] [place] [address] CO2 [Moles/Vol] 27 mmol/L Normal 22-32 [facility] Comment on above: Performed By: #### 3 5365-6, VINCENZO, 3015-3, 79427-2 #### [facility] ([id number]) [address], [address] [place] [address] Creatinine [Mass/Vol] 0.60 mg/dL Normal 0.40-1.00 [facility] Comment on above: Result Comment: METH OD TRACEABLE TO IDMS STANDARD Performed By: #### 3 5365-6, [place], 3015-3, #### [facility] ([id number]) [address], [address] [place] [address] eGFR (CKD-EPI) NON-RACE DEPENDENT >90 Normal >59 [facility] Comment on above: Result Comment: Reported eGFR is based on the CKD-EPI 2020 equation that does not use a race coefficient. Performed By: #### 3 5365-6, VINCENZO, 3015-3, #### [facility] ([id number]) [address], [address] [place] [address] Glucose [Mass/Vol] 79 mg/dL Normal 65-99 [facility] Comment on above: Performed By: #### 3 5365-6, VINCENZO, 3, #### [facility] ([id number]) [address], [address] [place] [address] Potassium [Moles/Vol] 3.8 mmol/L Normal 3.5-5.0 [facility] Comment on above: Performed By: #### 3 5365-6, [place], 3015-3, 64590-3 #### [facility] ([id number]) [address], [address] [place] [address] Protein [Mass/Vol] 6.4 g/dL Normal 6.0-8.0 [facility] Comment on above: Performed By: #### 3 5365-6, [facility], 3016-3, 46973-2 #### [facility] ([id number]) [address], [address] [place] [address] Sodium [Moles/Vol] 141 mmol/L Normal 134-146 [facility] Comment on above: Performed By: #### 3 5365-6, [facility], 3016-3, #### [facility] ([id number]) [address], [address] [place] [address] Urea nitrogen [Mass/Vol] 11 mg/dL Normal 5-23 [facility] Comment on above: Performed By: #### 3 5365-6, [facility], 3016-3, #### [facility] ([id number]) [address], [address] [place] [address] MAGNESIUMon 11-16-2023 Magnesium [Mass/Vol] 1.8 mg/dL Normal 1.8-2.6 [facility] Comment on above: Performed By: #### 3 5365-6, [facility], [facility]6-3, #### [facility] ([id number]) [address], [address] [place] [address] TSH Qnon 11-16-2023 TSH 0.19 uIU/mL Low 0.49-4.67 [facility] Comment on above: Performed By: #### 3 5365-6, [facility], 3016-3, 69739-5 #### [facility] ([id number]) [address], [address] [place] [address] Vitamin D+Metabolites [Mass/ Vol]on 11-16-2023 VITAMIN D 25 HYD TOT 65.7 ng/mL Normal 30-100 [facility] Comment on above: Result Comment: Vitamin D status 25 [place] Vitamin D Deficiency <20 ng/mL Insufficiency 20-29 ng/mL Sufficiency 30-100 ng/mL Toxicity >100 ng/mL NOTE: A pediatric reference range has not been established by the release and technical records clerk of this kit. The [place] [employer] recommends a Vitamin D level of = or >20ng/mL in infants and children. Performed By: #### 3 5365-6, [facility], 3016-3, 15358-0 #### [facility] ([id number]) [address] [place] [address], [address] [place] [address] CBC AUTO DIFFon 03-13-2023 BASO # 0.0 103/ul Normal 0.0-0.1 [facility] Comment on above: Performed By: #### C BC #### [facility] [address] [place] [address] Dr. Froy Calderón Basophils/100 WBC (Bld) 0.6 % Normal 0.2-2.0 [facility] Comment on above: Performed By: #### C BC #### [facility] [address] [address] [address] Froy Calderón EO # 0.3 103/ul Normal 0.0-0.7 [facility] Comment on above: Performed By: #### C BC #### [facility] [address] [place] [address] Dr. Froy Calderón Eosinophils/100 WBC (Bld) 3.9 % Normal 0.9-7.0 [facility] Comment on above: Performed By: #### C BC #### [facility] [address] [address] [address] Froy Calderón Erythrocyte distribution width (RBC) [Ratio] 12.0 % Normal 11.0-15.0 [facility] Comment on above: Performed By: #### C BC #### [facility] [address] [place] [address] Dr. Froy Calderón Hematocrit (Bld) [Volume fraction] 38.6 % Normal 36.0-48.0 [facility] Comment on above: Performed By: #### C BC #### [facility] [address] [place] [address] Dr. Froy Calderón Hemoglobin (Bld) [Mass/Vol] 12.9 g/dL Normal 12.0-16.0 [facility] Comment on above: Performed By: #### C BC #### [facility] [address] [place] [address] Dr. Froy Calderón IG # 0.02 10e3/ul Normal 0.00-0.03 [facility] Comment on above: Performed By: #### C BC #### [facility] [address] [place] [address] Dr. Froy Calderón IG % 0.3 % Normal 0.0-0.5 [facility] Comment on above: Performed By: #### C BC #### [facility] [address] [place] [address] Dr. Froy Calderón LYMPH # 1.8 103/ul Normal 1.2-3.8 [facility] Comment on above: Performed By: #### C BC #### [facility] [address] [place] [address] Dr. Froy Calderón Lymphocytes/100 WBC (Bld) 26.5 % Normal 20.5-60.0 [facility] Comment on above: Performed By: #### C BC #### [facility] [address] [place] [address] Dr. Froy Calderón MANUAL DIFF REQ NO Normal [facility] Comment on above: Performed By: #### C BC #### [facility] [address] [place] [address] Dr. Froy Calderón MCH (RBC) [Entitic mass] 31.3 pg Normal 26.7-34.0 [facility] Comment on above: Performed By: #### C BC #### [facility] [address] [place] [address] Dr. Froy Calderón MCHC (RBC) [Mass/Vol] 33.4 g/dL Normal 29.9-35.2 [facility] Comment on above: Performed By: #### C BC #### [facility] [id number] Froy Calderón MCV (RBC) [Entitic vol] 93.7 fL Normal 81.0-99.0 [facility] Comment on above: Performed By: #### C BC #### [facility] [id number] Froy Calderón MONO # 0.6 103/ul Normal 0.3-0.8 [facility] Comment on above: Performed By: #### C BC #### [facility] [address] [address] [address] Froy Calderón Monocytes/100 WBC (Bld) 8.1 % Normal 1.7-12.0 [facility] Comment on above: Performed By: #### C BC #### [facility] [address] [address] [address] Froy Calderón NEUT # 4.2 103/ul Normal 1.4-6.5 [facility] Comment on above: Performed By: #### C BC #### [facility] [address] [address] [address] Froy Calderón Neutrophils/100 WBC (Bld) 60.6 % Normal 43.0-75.0 [facility] Comment on above: Performed By: #### C BC #### [facility] [address] [address] [address] Froy Calderón Platelet mean volume (Bld) [Entitic vol] 9.2 fL Critically low 9.5-13.5 [facility] Comment on above: Performed By: #### C BC #### [facility] [address] [address] [address] Froy Calderón PLT 226 103/ul Normal 150-450 [facility] Comment on above: Performed By: #### C BC #### [facility] [id number] Froy Calderón RBC 4.12 106/ul Critically low 4.20-5.40 [facility] Comment on above: Performed By: #### C BC #### [facility] [address] [address] [address] Froy Calderón WBC 7.0 103/ul Normal 4.0-11.0 [facility] Comment on above: Performed By: #### C BC #### [facility] [address] [place] [address] Dr. Froy Calderón FREE T4on 03-13-2023 Free T4 [Mass/Vol] 0.96 ng/dL Normal 0.76-1.46 [facility] Comment on above: Performed By: #### F T4 #### [facility] [address] [place] [address] Dr. Froy Calderón GLYCOHEMOGLOBIN A1Con 2022 ADA RECOMMENDATION SEE BELOW Normal [facility] Comment on above: Result Comment: ADA RECOMMENDED LIMIT 4.0 - 6.0 ADA THERAPEUTIC TARGET < 7.0 ACTION SUGGESTED > 7.0 Performed By: #### A 1C #### [facility] [address] [place] [address] Dr. Froy Calderón Glucose [Mass/Vol] 91 mg/dL Normal [facility] Comment on above: Performed By: #### A 1C #### [facility] [address] [place] [address] Dr. Froy Calderón HbA1c (Bld) [Mass fraction] 4.8 % Normal 4.5-6.2 [facility] Comment on above: Performed By: #### A 1C #### [facility] [address] [place] [address] Dr. Froy Calderón TSHon 03-13-2023 TSH 5.367 uIU/mL Critically high 0.358-3.740 [facility] Comment on above: Performed By: #### T SH #### [facility] [address] [place] [address] Dr. Froy Calderón US PELVIS AND TRANSVAGon [...] NATALIE KHAN Date: 2023-02-19 09:20 Normal [facility] PAP ACOG PANEL 2: 30 to 65on 01-31-2023 . . Normal [facility] Comment on above: Result Comment: Perf ormed at: WB Performed By: #### 4 [id number] #### [facility] [address] [place] [address] Dr. Froy Calderón Age Gdln ACOG Testing 30-65 Normal [facility] Comment on above: Performed By: #### 4 [id number] #### [facility] [address] [place] [address] Dr. Froy Calderón DIAGNOSIS: Comment Normal [facility] Comment on above: Result Comment: NEGA TIVE FOR INTRAEPITHELIAL LESION OR MALIGNANCY. Performed at: WB Performed By: #### 4 [id number] #### [facility] [address] [address] [address] Froy Calderón HPV Aptima Negative Normal Negative [facility] Comment on above: Result Comment: This nucleic acid amplification test detects fourteen high-risk HPV types (16,18,31,33,35,39,45,51,52,56,58,59,66,68) without differentiation. Performed at: =G Performed By: #### 4 [id number] #### [facility] [address] [address] [address] Froy Calderón HPV Genotype Reflex Comment Normal [facility] Comment on above: Result Comment: Crit eria not met, HPV Genotype not performed. Performed at: WB Performed By: #### 4 [id number] #### [facility] [address] [place] [address] Dr. Froy Calderón Methodology: Comment Normal [facility] Comment on above: Result Comment: This liquid based ThinPrep(R) pap test was screened with the use of an image guided system. Performed at: WB Performed By: #### 4 [id number] #### [facility] [address] [place] [address] Dr. Froy Calderón Note: Comment Normal [facility] Comment on above: Result Comment: The Pap smear is a screening test designed to aid in the detection of premalignant and malignant conditions of the uterine cervix. It is not a diagnostic procedure and should not be used as the sole means of detecting cervical cancer. Both false-positive and false-negative reports do occur. . Performed at: WB Performed By: #### 4 [id number] #### [facility] [address] [place] [address] Dr. Froy Calderón Performed by: Comment Normal [facility] Comment on above: Result Comment: Racheal Villatoro, Die Tripper Performed at: WB Performed By: #### 4 [id number] #### [facility] [address] [place] [address] Dr. Froy Calderón Specimen adequacy: Comment Normal [facility] Comment on above: Result Comment: Sati sfactory for evaluation. Endocervical and/or squamous metaplastic cells (endocervical component) are present. Performed at: WB Performed By: #### 4 [id number] #### [facility] [address] [place] [address] Dr. Froy Calderón Cytology Cervical or vaginal smear or scraping studyon 2023 [facility] PREG QUANT HCGon 12-03-2022 HCG QUANT <1 Normal [facility] Comment on above: Performed By: #### P REGQNT #### [facility] [address] [place] [address] Dr. Froy Calderón HCG RANGE SEE BELOW Normal [facility] Comment on above: Result Comment: 5-50 0.2-1 WEEK 50-500 1-2 WEEKS 100-5,000 2-3 WEEKS 500-10,000 3-4 WEEKS 1,000-50,000 4-5 WEEKS 10,000-100,000 5-6 WEEKS 15,000-200,000 6-8 WEEKS 10,000-100,000 2-3 MONTHS Performed By: #### P REGQNT #### [facility] [address] [address] [address] Froy Calderón Basic Metabolic Panelon 09-0 Anion gap [Moles/Vol] 10 mmol/L 9 - 17 mmol/L 46elks Calcium [Mass/Vol] 8.4 mg/dL Low 8.6 - 10. 4 mg/dL 46elks Chloride [Moles/Vol] 107 mmol/L 98 - 10 7 mmol/L 46elks CO2 [Moles/Vol] 21 mmol/L 20 - 31 mmol/L 46elks Creatinine [Mass/Vol] 0.61 mg/dL 0.5 - 0.9 mg/dL 46elks GFR >60 60 - PI NF mL/min 46elks GFR Non- >60 60 - PINF mL/min 46elks GFR/1.73 sq M.predicted MDRD (S/P/Bld) [Vol rate/Area] [facility] Comment on above: Average GFR for 20-2 9 years old: 116 mL/min/1.73sq m Chronic Kidney Disease: <60 mL/min/1.73sq m Kidney failure: <15 mL/min/1.73sq m eGFR calculated using average adult body mass. Additional eGFR calculator available at: http://www.ProspectWise.MobileVeda/multiple_crcl_2012.htm Glucose [Mass/Vol] 107 mg/dL High 70 - 99 mg/dL 46elks Interpretation and review of laboratory results Abnormal 46elks Potassium [Moles/Vol] 5.0 mmol/L 3.7 - 5.3 mmol/L 46elks Sodium [Moles/Vol] 138 mmol/L 135 - 144 mmol/L [facility] Urea nitrogen (BldV) [Mass/Vol] 7 mg/dL 6 - 20 mg/dL [facility] CBCon 07-04-2021 Hematocrit (Bld) [Volume fraction] 39.8 % 36.3 - 47.1 % [facility] Hemoglobin (Bld) [Mass/Vol] 13.4 g/dL 11.9 - 15.1 g/dL [facility] Interpretation and review of laboratory results Abnormal [facility] MCH (RBC) [Entitic mass] 30.1 pg 25.2 - 33.5 pg [facility] MCHC (RBC) [Mass/Vol] 33.7 g/dL 28.4 - 34.8 g/dL [facility] MCV (RBC) [Entitic vol] 89.4 fL 82.6 - 102.9 fL [facility] NRBC Automated 0.0 0.0 per 100 WBC [facility] Platelet distribution width (Bld) [Ratio] 11.6 % Low 11.8 - 14.4 % [facility] Platelet mean volume (Bld) [Entitic vol] 9.6 fL 8.1 - 13.5 fL [facility] Platelets (Bld) [#/Vol] 217 10*3/uL [facility] RBC (Bld) [#/Vol] 4.45 10*6/uL 3.95 - 5.1 1 m/uL [facility] WBC (Bld) [#/Vol] 13.6 10*3/uL High [facility] Basic Metabolic Panelon Anion gap [Moles/Vol] 14 mmol/L 9 - 17 mmol/L [facility] Calcium [Mass/Vol] 8.8 mg/dL 8.6 - 10. 4 mg/dL [facility] Chloride [Moles/Vol] 103 mmol/L 98 - 10 7 mmol/L [facility] CO2 [Moles/Vol] 18 mmol/L Low 20 - 31 mmol/L [facility] Creatinine [Mass/Vol] 0.66 mg/dL 0.5 - 0.9 mg/dL [facility] GFR >60 60 - PI NF mL/min [facility] GFR Non- >60 60 - PINF mL/min [facility] GFR/1.73 sq M.predicted MDRD (S/P/Bld) [Vol rate/Area] [facility] Comment on above: Average GFR for 20-2 9 years old: 116 mL/min/1.73sq m Chronic Kidney Disease: <60 mL/min/1.73sq m Kidney failure: <15 mL/min/1.73sq m eGFR calculated using average adult body mass. Additional eGFR calculator available at: http://www.wrenchguys mobile/multiple_crcl_2011.htm Glucose [Mass/Vol] 126 mg/dL High 70 - 99 mg/dL [facility] Interpretation and review of laboratory results Abnormal [facility] Potassium [Moles/Vol] 4.3 mmol/L 3.7 - 5.3 mmol/L [facility] Sodium [Moles/Vol] 135 mmol/L 135 - 144 mmol/L [facility] Urea nitrogen (BldV) [Mass/Vol] 11 mg/dL 6 - 20 mg/dL [facility] CBC without Diffon Hematocrit (Bld) [Volume fraction] 46.4 % 36.3 - 47.1 % [facility] Hemoglobin (Bld) [Mass/Vol] 15.2 g/dL High 11.9 - 15.1 g/dL [facility] Interpretation and review of laboratory results Abnormal [facility] MCH (RBC) [Entitic mass] 29.9 pg 25.2 - 33.5 pg [facility] MCHC (RBC) [Mass/Vol] 32.8 g/dL 28.4 - 34.8 g/dL [facility] MCV (RBC) [Entitic vol] 91.2 fL 82.6 - 102.9 fL [facility] NRBC Automated 0.0 0.0 per 100 WBC [facility] Platelet distribution width (Bld) [Ratio] 11.9 % 11.8 - 14.4 % [facility] Platelet mean volume (Bld) [Entitic vol] 9.4 fL 8.1 - 13.5 fL [facility] Platelets (Bld) [#/Vol] 232 10*3/uL [facility] RBC (Bld) [#/Vol] 5.09 10*6/uL 3.95 - 5.1 1 m/uL [facility] WBC (Bld) [#/Vol] 9.0 10*3/uL [facility] urine pregnancyon 07-03 Beta HCG ( test) Ql (U) Negative NEGATIVE [facility] Comment on above: Specimens with hCG l evels near the threshold of the test (25 mIU/mL) may give a negative or indeterminate result. In such cases, another test should be performed with a new specimen in 48-72 hours. If early is suspected clinically in this setting, correlation with quantitative serum b-hCG level is suggested. [facility] Gastroenterology Office/Clin ic Noteon 03-29-2021 [...] go ahead and order. Electronically signed by Paulie HUDSON Magdalene Beata 03/31/21 10:21 EDT Patient has been taking [...] [place] 03/31/21 14:40 EDT Electronically signed by Paulie HUDSONCarolinaMagdalene Beata 04/03/2021 09:24 EDT Normal [facility] [place] 02-27-2021 Consent [id number]# 1.00CD:127 [facility] Registrationon 02-27-2021 Registration [id number]# 1.00CD:127 [facility] Vital Signs Date Time Vital Sign Value Performing Clinician Facility 12-23-2024 11:51-0500 Body mass index (BMI) [Ratio] 28.09 kg/m2 [employer] Work Phone: [facility] 12-23-2024 11:51-0500 Body weight 91.35 kg [employer] Work Phone: [facility] 12-23-2024 11:51-0500 Diastolic blood pressure 82 mm[Hg] [employer] Phone: [facility] 12-23-2024 11:51-0500 Systolic blood pressure 110 mm[Hg] Jake Fe DO Work Phone: [facility] 12-16-2024 10:40-0500 Body mass index (BMI) [Ratio] 27.75 kg/m2 Jake Fe DO Work Phone: [facility] 12-16-2024 10:40-0500 Body weight 90.27 kg Jake Fe DO Work Phone: [facility] 12-16-2024 10:40-0500 Diastolic blood pressure 60 mm[Hg] Jake Fe DO Work Phone: [facility] 12-16-2024 10:40-0500 Systolic blood pressure 110 mm[Hg] Jake Fe DO Work Phone: [facility] 12-02-2024 10:45-0500 Body mass index (BMI) [Ratio] 27.17 kg/m2 Jake Fe DO Work Phone: [facility] 12-02-2024 10:45-0500 Body weight 88.36 kg Jake Fe DO Work Phone: [facility] 12-02-2024 10:45-0500 Diastolic blood pressure 72 mm[Hg] Jake Fe DO Work Phone: [facility] 12-02-2024 10:45-0500 Systolic blood pressure 110 mm[Hg] Jake Fe DO Work Phone: [facility] 11-20-2024 09:56-0500 Body mass index (BMI) [Ratio] 27.66 kg/m2 Ronaldo Mcnulty MD Work Phone: [facility] 11-20-2024 09:56-0500 Body weight 87.45 kg Ronaldo Mcnulty MD Work Phone: [facility] 11-20-2024 09:56-0500 Diastolic blood pressure 78 mm[Hg] Ronaldo Mcnulty MD Work Phone: [facility] 11-20-2024 09:56-0500 Heart rate 86 /min Ronaldo Mcnulty MD Work Phone: [facility] 11-20-2024 09:56-0500 Systolic blood pressure 116 mm[Hg] Ronaldo Mcnulty MD Work Phone: [facility] 11-18-2024 15:49-0500 Body mass index (BMI) [Ratio] 27.06 kg/m2 Jake Fe DO Work Phone: [facility] 11-18-2024 15:49-0500 Body weight 88 kg Jake Fe DO Work Phone: [facility] 11-18-2024 15:49-0500 Diastolic blood pressure 68 mm[Hg] Jake Fe DO Work Phone: [facility] 11-18-2024 15:49-0500 Systolic blood pressure 116 mm[Hg] Jake Fe DO Work Phone: [facility] 11-04-2024 14:47-0500 Body mass index (BMI) [Ratio] 27.03 kg/m2 Jake Fe DO Work Phone: [facility] 11-04-2024 14:47-0500 Body weight 87.91 kg Jake Fe DO Work Phone: [facility] 11-04-2024 14:47-0500 Diastolic blood pressure 70 mm[Hg] Jake Fe DO Work Phone: [facility] 11-04-2024 14:47-0500 Systolic blood pressure 120 mm[Hg] Jake Fe DO Work Phone: [facility] 10-22-2024 11:17-0500 Body mass index (BMI) [Ratio] 26.33 kg/m2 Jake Fe DO Work Phone: [facility] 10-22-2024 11:17-0500 Body weight 85.64 kg Jake Fe DO Work Phone: [facility] 10-22-2024 11:17-0500 Diastolic blood pressure 70 mm[Hg] Jake Fe DO Work Phone: [facility] 10-22-2024 11:17-0500 Systolic blood pressure 110 mm[Hg] Jake Fe DO Work Phone: [facility] 09-29-2024 09:25-0500 Body mass index (BMI) [Ratio] 25.8 kg/m2 Jake Fe DO Work Phone: [facility] 09-29-2024 09:25-0500 Body weight 83.92 kg Jake Fe DO Work Phone: [facility] 09-29-2024 09:25-0500 Diastolic blood pressure 72 mm[Hg] Jake Fe DO Work Phone: [facility] 09-29-2024 09:25-0500 Systolic blood pressure 102 mm[Hg] Jake Fe DO Work Phone: [facility] 09-01-2024 11:46-0500 Body mass index (BMI) [Ratio] 24.69 kg/m2 Jake Fe DO Work Phone: [facility] 09-01-2024 11:46-0500 Body weight 80.29 kg Jake Fe DO Work Phone: [facility] 09-01-2024 11:46-0500 Diastolic blood pressure 60 mm[Hg] Jake Fe DO Work Phone: [facility] 09-01-2024 11:46-0500 Systolic blood pressure 100 mm[Hg] Jake Fe DO Work Phone: [facility] 08-03-2024 09:04-0400 Body mass index (BMI) [Ratio] 23.85 kg/m2 Katherine VELAZCO Work Phone: [facility] 08-03-2024 09:04-0400 Body weight 77.56 kg Katherine VELAZCO Work Phone: [facility] 08-03-2024 09:04-0400 Diastolic blood pressure 72 mm[Hg] Katherine VELAZCO Work Phone: [facility] 08-03-2024 09:04-0400 Systolic blood pressure 118 mm[Hg] Katherine Bridges PA Work Phone: [facility] 07-07-2024 09:24-0400 Body mass index (BMI) [Ratio] 22.59 kg/m2 Jake Fe DO Work Phone: [facility] 07-07-2024 09:24-0400 Body weight 73.48 kg Jake Fe DO Work Phone: [facility] 07-07-2024 09:24-0400 Diastolic blood pressure 60 mm[Hg] Jake Fe DO Work Phone: [facility] 07-07-2024 09:24-0400 Systolic blood pressure 110 mm[Hg] Jake Fe DO Work Phone: [facility] 07-04-2022 11:11-0400 Body temperature 99.3 [degF] Bret Wetzel DO Work Phone: [facility] 07-04-2022 11:11-0400 Diastolic blood pressure 75 mm[Hg] Bret Wetzel DO Work Phone: [facility] 07-04-2022 11:11-0400 Heart rate 63 /min Bret Wetzel DO Work Phone: [facility] 07-04-2022 11:11-0400 Respiratory rate 16 /min Bret Wetzel DO Work Phone: [facility] 07-04-2022 11:11-0400 SaO2% (BldA) [Mass fraction] 99 % Bret Wetzel DO Work Phone: [facility] 07-04-2022 11:11-0400 Systolic blood pressure 141 mm[Hg] Bret Wetzel DO Work Phone: [facility] 07-03-2022 09:50-0400 Body height 177.8 cm Bret Wetzel DO Work Phone: [facility] 07-03-2022 09:50-0400 Body mass index (BMI) [Ratio] 38.17 kg/m2 Bret Wetzel DO Work Phone: [facility] 07-03-2022 09:50-0400 Body weight 120.66 kg Bert Wetzel DO Work Phone: [facility] [email or web address] Encounters Encounter Date Encounter Type Care Provider Facility Start: 12-23-2024 End: 12-23-2024 Bamboo flowsheet Jake Fe DO Work Phone: [facility] Start: 12-23-2024 End: 12-23-2024 Bamboo flowsheet Jake Fe DO Work Phone: [facility] Start: 12-23-2024 End: 12-23-2024 Clinisync Result Encounter Jake Fe DO Work Phone: [facility] Unsolicited Start: 12-23-2024 End: 12-23-2024 Office outpatient visit 15 minutes Jake Fe DO Work Phone: [facility] Comment on above: 37 weeks gestation o f ; Third trimester Start: 12-17-2024 End: 12-17-2024 Clinisync Result Encounter [...] Mcnulty MD Work Phone: [facility] Comment on above: H/O gastric sleeve [...] Start: 11-11-2024 End: 11-11-2024 ambulatory JAKE R [facility] Start: 11-04-2024 End: 11-04-2024 Office outpatient [...] 15 minutes Jake Fe DO Work Phone: [facility] Comment on above: 28 weeks gestation o f ; Third trimester Start: 10-22-2024 End: 10-22-2024 ambulatory JAKE FE Not Available Start: 09-29-2024 End: 09-29-2024 Bamboo flowsheet Jake Fe DO Work Phone: [facility] Start: 09-29-2024 End: 09-29-2024 Bamboo flowsheet Jake Fe DO Work Phone: [facility] Start: 09-29-2024 End: 09-29-2024 Office outpatient visit 15 minutes Jake Fe DO Work Phone: [facility] Comment on above: Second trimester pre gnancy; 25 weeks gestation of ; Diabetes mellitus screening; Gestational diabetes mellitus (GDM), antepartum, gestational diabetes method of control unspecified; Elevated glucose tolerance test Start: 09-29-2024 End: 09-29-2024 ambulatory JAKE FE Not Available Start: 09-01-2024 End: 09-01-2024 Bamboo flowsheet Jake Fe DO Work Phone: [facility] Start: 09-01-2024 End: 09-01-2024 Bamboo flowsheet Jake Fe DO Work Phone: [facility] Start: 09-01-2024 End: 09-01-2024 Office outpatient visit 15 minutes Jake Fe DO Work Phone: [facility] Comment on above: 21 weeks gestation o f ; Second trimester Start: 09-01-2024 End: 09-01-2024 ambulatory JAKE FE Not Available Start: 08-26-2024 End: 08-26-2024 Emergency department patient visit ROGER MCKENZIE [facility] Start: 08-15-2024 End: 08-15-2024 External Result Encounter Jake Fe DO Work Phone: [facility] External Department Unsolicited Start: 08-15-2024 End: 08-15-2024 External Result Encounter Jake Fe DO Work Phone: [facility] Unsolicited Start: 08-15-2024 End: 08-15-2024 ambulatory [facility] Start: 08-03-2024 End: 08-03-2024 Bamboo flowsheet [...] Patient encounter procedure Katherine VELAZCO Work Phone: [facility] Start: 08-03-2024 End: 08-03-2024 ambulatory KATHERINE BRIDGES Not Available Start: 07-18-2024 End: 07-18-2024 External Result Encounter Jake Fe DO Work Phone: [facility] Unsolicited Start: 07-18-2024 End: 07-18-2024 External Result Encounter Jake Fe DO Work Phone: [facility] Unsolicited Start: 07-18-2024 End: 07-18-2024 ambulatory [facility] Start: 07-13-2024 End: 07-13-2024 Orders Only [...] Department Unsolicited Start: 06-20-2024 End: 06-20-2024 ambulatory [facility] Start: 06-12-2024 End: 06-12-2024 ambulatory JAKE FE Not Available Start: 06-06-2024 End: 06-06-2024 Emergency department patient visit [facility] Start: 06-06-2024 End: 06-06-2024 ambulatory [facility] Start: 05-26-2024 End: 05-27-2024 Emergency department patient visit ROGER MCKENZIE [facility] Start: 05-14-2024 End: 05-14-2024 ambulatory [facility] Start: 05-11-2024 End: 05-11-2024 ambulatory [facility] Start: 05-08-2024 End: 05-08-2024 ambulatory [facility] Start: 05-06-2024 End: 05-06-2024 ambulatory [facility] Start: 05-01-2024 End: 05-01-2024 ambulatory JAKE MIRAMONTES [facility] Start: 04-28-2024 End: 04-28-2024 ambulatory [facility] Start: 02-14-2024 End: 02-14-2024 ambulatory [facility] Start: 2024 End: 2024 ambulatory [facility] Start: 01-18-2024 End: 01-18-2024 ambulatory [facility] Start: 01-03-2024 End: 01-03-2024 ambulatory [facility] Start: 12-21-2023 End: 12-21-2023 ambulatory [facility] Start: 12-18-2023 Orders Only Jake Miramontes DO Work Phone: [facility] Comment on above: 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; Personal history of other diseases of the female genital tract Start: 12-13-2023 End: 12-13-2023 ambulatory [facility] Start: 11-27-2023 End: 11-27-2023 ambulatory BRET WETZEL [place] Start: 11-16-2023 End: 11-16-2023 ambulatory [facility] Start: 03-13-2023 End: 03-14-[address] [...] present Start: 04-27-2021 ambulatory Chayo Fofana MD Facility:[facility] Procedures Date Procedure Procedure Detail Performing Clinician Start: 12-23-2024 US OB GROWTH Jake Fazi o DO Work Phone: Start: 12-23-2024 US OB BPP W NON-STRESS Jake Fe DO Work Phone: Start: 12-17-2024 US OB BPP W NON-STRESS Jake Fe DO Work Phone: Start: 12-16-2024 Urnls dip stick/tabl et rgnt non-auto w/o micrscp Jake Fe DO Work Phone: Start: 12-16-2024 ALL MISCELLANEOUS TEST Jake Fe DO Work Phone: Start: 12-10-2024 US OB BPP W NON-STRESS Jake Fe DO [...] dip stick/tabl et rgnt non-auto w/o micrscp Jakebaldev Rojaso DO Work Phone: Start: 08-15-2024 Assay of thyroid stimulating hormone tsh Jake Fe DO Work Phone: Start: 08-03-2024 URETHRITIS/DISCHARGE PLUS [...] Thyrotropin [Units/v olume] in Serum or Plasma [facility] DO Work Phone: Start: 2023 Microscopic observat ion [Identifier] in Cervix by Cyto stain [facility] DO Work Phone: Start: 2023 Cytp cerv/vag auto t hin layer prep mnl screen Jake Fe DO Work Phone: Start: 07-04-2022 Basic metabolic pane l calcium total Bret Wetzel DO Work Phone: Start: 07-03-2022 Basic metabolic pane l calcium total Bret Wetzel DO Work Phone: Start: 07-03-2022 End: 07-03-2022 Laps gstrc rstrictiv px longitudinal gastrectomy Bret Wetzel DO Work Phone: Start: 07-03-2022 Urine test visual color cmprsn meths Bret Wetzel DO Work Phone: Start: 04-17-2021 Microscopic observat ion [Identifier] in Cervix by Cyto stain Jake Miramontes DO Work Phone: Plan of Treatment Date Care Activity Detail Author Start: 01-25-2028 Screening for malign ant neoplasm of cervix [facility] Start: 2026 Screening for malign ant neoplasm of cervix Pap Smear [facility] Start: 11-20-2025 Adult BMI Screening Adult BMI Screen ing [facility] Start: 11-20-2025 Tobacco Screening Tobacco Screening [facility] Start: 06-06-2025 Adult BMI Screening Adult BMI Screen ing [facility] Start: 05-26-2025 Tobacco Screening Tobacco Screening [facility] Start: 12-30-2024 End: 12-30-2024 Patient encounter procedure 12/30/2024 1:10 PM EST Routine [facility] [address] [place] [id number] Jake Miramontes, DO [address] [place] [address] [facility] Start: 12-23-2024 End: 12-23-2024 Patient encounter procedure [facility] Comment on above: Arrived Start: 12-16-2024 End: 12-16-2025 CULTURE, GROUP B STREP WITH SUSCEPTIBLITY CULTURE, GROUP B STREP WITH SUSCEPTIBLITY Lab Routine Third trimester Expected: 12/16/2024, Expires: 12/16/2025 [facility] Work Phone: Comment on above: Expected: 12/16/2024 , Expires: 12/16/2025 Start: 12-16-2024 End: 12-16-2025 US for US OB follow up transabdominal approach Imaging Routine Excessive growth affecting management of , antepartum, single or unspecified fetus Expected: 12/16/2024, Expires: 12/16/2025 [facility] Comment on above: Expected: 12/16/2024 , Expires: 12/16/2025 Start: 12-16-2024 End: 12-16-2024 Patient encounter procedure [facility] Comment on above: Arrived Start: 12-02-2024 End: 12-02-2025 US biophysical profile w non stress test US biophysical profile w non stress test Imaging Routine Excessive growth affecting management of , antepartum, single or unspecified fetus Expected: 12/02/2024 (Approximate), Expires: 12/02/2025 [facility] Work Phone: Comment on above: Expected: [...] mellitus screening Expected: 11/04/2024 (Approximate), Expires: 11/04/2025 [facility] Work Phone: Comment on above: Expected: 11/04/2024 (Approximate), Expires: 11/04/2025 Start: 11-01-2024 Adult BMI Screening Adult BMI Screen [facility] Start: 10-22-2024 End: 10-22-2024 Patient encounter procedure [facility] Comment on above: Arrived Start: 09-29-2024 End: 09-29-2025 CBC panel - Blood by Automated count CBC Lab Routine Diabetes mellitus screening Expected: 09/29/2024 (Approximate), Expires: 09/29/2025 [facility] Work Phone: Comment on above: Expected: 09/29/2024 (Approximate), Expires: 09/29/2025 Start: 09-29-2024 End: 09-29-2025 Measurement of glucose 1 hour after glucose challenge for glucose tolerance test Glucose tolerance, 1 hour Lab Routine Diabetes mellitus screening Expected: 09/29/2024 (Approximate), Expires: 09/29/2025 [facility] Comment on above: Expected: 09/29/2024 (Approximate), Expires: 09/29/2025 Start: 09-29-2024 End: 09-29-2024 Patient encounter procedure [facility] Comment on above: Arrived Start: 09-01-2024 End: 09-01-2024 Patient encounter procedure [facility] Comment on above: Arrived Start: 09-01-2024 End: 09-01-2024 Professional / ancillary services management 09/01/2024 10:30 AM EST Ancillary Procedure [facility] [address] [place] [phone] [facility] Start: 09-01-2024 End: 09-01-2024 Patient encounter procedure 09/01/2024 9:20 AM EST Routine [facility] [address] [facility] [place] [id number] FeJake macias, DO [address] [place] [address] [facility] Start: 08-03-2024 End: 09-03-2024 Alpha fetoprotein, maternal Alpha fetoprotein, maternal Lab Routine Screening, , for anatomic survey Expected: 08/03/2024 (Approximate), Expires: 09/03/2024 [facility] Work Phone: Comment on above: Expected: 08/03/2024 (Approximate), Expires: 09/03/2024 Start: 08-03-2024 End: 08-03-2025 US for US OB ANATOMY SINGLE W US OB CERVICAL LENGTH Imaging Routine Screening, , for anatomic survey Expected: 08/03/2024 (Approximate), Expires: 08/03/2025 [facility] Comment on above: Expected: 08/03/2024 (Approximate), Expires: 08/03/2025 Start: 08-03-2024 End: 08-03-2024 Patient encounter procedure [facility] Comment on above: Arrived Start: 07-13-2024 End: 07-13-2025 Thyroid profile includes TSH FT4 Thyroid profile includes TSH FT4 Lab Routine Hypothyroidism, unspecified Expected: 07/13/2024, Expires: 07/13/2025 Dr [facility] Work Phone: Comment on above: Expected: 07/13/2024 , Expires: 07/13/2025 Start: 07-07-2024 End: 07-07-2024 Patient encounter procedure [facility] Comment on above: Arrived Start: 06-28-2024 [facility] Start: 04-17-2024 Screening for malign ant neoplasm of cervix [facility] Start: 12-18-2023 End: 12-18-2024 Antimullerian hormone (AMH) Antimullerian hormone (AMH) Lab Routine Female infertility associated with anovulation Personal history of other diseases of the female genital tract Expected: 12/18/2023, Expires: 12/18/2024 Dr [facility] Work Phone: Comment on above: Expected: 12/18/2023 , Expires: 12/18/2024 Start: 12-06-2023 Tobacco Screening Tobacco Screening [facility] Start: 06-28-2023 Influenza vaccination Influenza Vacc ine [facility] [employer] ([employer]) [facility] Start: 08-07-2022 End: 08-07-2022 Patient encounter procedure 08/07/2022 Office Visit Bariatrics Dottie Diaz, SANDBLASTER PAINT SPRAYER - SURG RN [address] [facility] [address] [place] [address] [facility] Start: 07-12-2022 End: 07-12-2022 Patient encounter procedure 07/12/2022 Office Visit Bariatrics Bret Wetzel, DO [address] [place] [address] [facility] Start: 06-28-2022 Influenza vaccination Flu vaccine (# 1) [facility] Start: 2014 Screening for malign ant neoplasm of cervix Pap smear [facility] [place] Start: 01-25-2012 DTaP,Tdap and Td Vaccines (1 - Tdap) DTaP,Tdap and Td Vaccines (1 - Tdap) [facility] Start: 01-25-2012 DTaP/Tdap/Td vaccine (1 - Tdap) DTaP/Tdap/Td vaccine (1 - Tdap) [facility] Start: 2011 Adult BMI Follow Up Plan Adult BMI Follow Up Plan [facility] Start: 2011 Hepatitis C screening Hepatitis C sc reen [facility] Start: 01-25-2008 HIV screening HIV screen [facility] Start: 2005 Depression Screen Depression Screen [facility] Start: 2005 Depression Screening Depression Scre ening [facility] Start: 01-25-2004 DTaP,Tdap and Td Vaccines (6 - Tdap) DTaP,Tdap and Td Vaccines (6 - Tdap) [facility] Start: 1994 Varicella vaccine (1 of 2 - 2-dose childhood series) Varicella vaccine (1 of 2 - 2-dose childhood series) [facility] Start: 1993 COVID-19 Vaccine (#1) COVID-19 Vacci ne (#1) [facility] CHLAMYDIA TRACHOMATI S (GENITO/STI) CHLAMYDIA TRACHOMATIS (GENITO/STI) Lab Routine Exposure to STD Ordered: 08/03/2024 [facility] Comment on above: Ordered: 08/03/2024 Continuous pulse oximetry Pulse oximetry, continuous Respiratory Care Routine Every 4hr until discontinued starting 07/03/2022 [facility] [employer] Phone: Comment on above: Every 4hr until disc ontinued starting 07/03/2022 Neisseria gonorrhoea e DNA [Presence] in Unspecified specimen by NEGRITO with probe detection Neisseria gonorrhea DNA probe, direct Lab Routine Exposure to STD Ordered: 08/03/2024 [facility] Comment on above: Ordered: 08/03/2024 Oxygen therapy [[facility] Data Set] Initiate Oxygen Therapy Protocol Respiratory Care Routine As Needed until discontinued starting 07/03/2022 [facility] [employer] Phone: Comment on above: As Needed until disc ontinued starting 07/03/2022 Spirometry panel Incentive brea metry Respiratory Care Routine Every 2hr while awake until discontinued starting 07/03/2022 [employer] Phone: Comment on above: Every 2hr while awak e until discontinued starting 07/03/2022 SURESWAB(R) ADVANCED VAGINITIS PLUS, TMA SURESWAB(R) ADVANCED VAGINITIS PLUS, TMA Pathology and Cytology Routine Exposure to STD Ordered: 08/03/2024 [facility] Comment on above: Ordered: 08/03/2024 Surgical Pathology Surgical Path ology Lab Routine Obesity, unspecified classification, unspecified obesity type, unspecified whether serious comorbidity present Gastroesophageal reflux disease, unspecified whether esophagitis present Release Upon Ordering for 1 Occurrences starting 07/03/2022 [employer] Phone: Comment on above: Release Upon Orderin g for 1 Occurrences starting 07/03/2022 End: 07-03-2022 SURGICAL PATHOLOGY REPORT SURGICAL PATHOLOGY REPORT Lab Routine Once for 1 Occurrences starting 07/03/2022 until 07/03/2022 [employer] Phone: Comment on above: Once for 1 Occurrenc es starting 07/03/2022 until 07/03/2022 Thyrotropin [Units/volume] in Serum or Plasma TSH Lab Routine 08/15/2024 9:17 AM EDT [employer] [facility] Work Phone: Immunizations Immunization Date Immunization Notes Care Provider Fa zenia 06-06-2024 RHO(D) immune globul in- IV or IM Jake Fe DO Work Phone: [employer] 07-11-2011 influenza virus vaccine, unspecified formulation Jake Fe DO Work Phone: [employer] Payers Date Payer Category Payer Medicaid [id number] 2022 Medicaid [id number] 2021 Unknown [employer] [id number] 2021-Present [phone] [address] [place] [address] [id number]. [id number] 2021 Unknown 1993 Unknown [id number] 2.16.840.1.762373.3.579.2.196 1993 Unknown [id number] 2.16.840.1.944169.3.579.2.593 1993 Unknown [id number] 2.16.840.1.161518.3.579.2.593 1993 Unknown [id number] 2.16.840.1.204764.3.579.2.593 1993 Unknown [id number] 2.16.840.1.888218.3.579.2.593 1993 Unknown [id number] 2.16.840.1.757730.3.579.2.175 1993 Unknown [id number] 2.16.840.1.598399.3.579.2.1286 1993 Unknown [id number] 2.16.840.1.616980.3.579.2.1286 1993 Unknown [id number] 2.16.840.1.628077.3.579.2.1286 1993 Unknown [id number] 2.16.840.1.567608.3.579.2.1286 1993 Unknown [id number] 2.16.840.1.895584.3.579.2.1286 1993 Unknown [id number] 2.16.840.1.228172.3.579.2.1286 1993 Unknown [id number] 2.16.840.1.574717.3.579.2.1286 1993 Unknown [id number] 2.16.840.1.603816.3.579.2.1285 1993 Unknown [id number] 2.840.1.541907.3.579.2.1285 1993 Unknown [id number] 2.840.1.745717.3.579.2.1285 1993 Unknown [id number] 2.16840.1.649791.3.579.2.1285 1993 Unknown [id number] 2.840.1.194121.3.579.2.1285 1993 Unknown [id number] 2.840.1.863155.3.579.2.1285 1993 Unknown [id number] 2.840.1.381374.3.579.2.1285 1993 Unknown [id number] 2.840.1.368153.3.579.2.1285 1993 Unknown [id number] 2.840.1.468314.3.579.2.1258 1993 Unknown [id number] 2.840.1.769581.3.579.2.1258 1993 Unknown [id number] 2.840.1.664144.3.579.2.1258 1993 Unknown [id number] 2840.1.655345.3.579.2.1258 1993 Unknown [id number] 2840.1.139104.3.579.2.1258 1993 Unknown [id number] 2840.1.612823.3.579.2.1258 1993 Unknown [id number] 2.840.1.113564.3.579.2.1258 1993 Unknown [id number] 2.840.1.492734.3.579.2.1258 1993 Unknown [id number] 2.840.1.442898.3.579.2.1259 1993 Unknown [id number] 2.16.840.1.932951.3.579.2.1259 Social History Date Type Detail Facility Start: 06-15-2022 End: 06-12-2024 Tobacco smoking status NHIS Never smoked tobacco [facility] Start: 06-15-2022 End: 06-12-2024 Tobacco use and exposure Smokeless tobacco non-user [employer] Phone: Start: 07-04-2022 End: 05-26-2024 Alcohol intake Current drinker of alcohol (finding) [employer] Phone: Start: 12-21-2021 History SDOH Alcohol Comment occ [employer] Phone: Start: 1995 Sex Assigned At Not on file B ON [employer] Phone: Start: 06-08-2022 End: 06-18-2022 Exposure to SARS-CoV-2 (event) Not sure [employer] Phone: Start: 07-30-2024 End: 12-16-2024 Alcoholic beverage intake Ex-drinker (finding) [facility] Start: 11-14-2020 End: 06-12-2024 History of Social function [facility] Start: 11-14-2020 End: 06-12-2024 Tobacco use panel [facility] Start: 01-19-2024 Alcohol Comment occasional [facility] Start: 04-20-2024 [facility] Start: 08-05-2019 Alcohol Comment occassionally [facility] Start: 06-02-2015 Sex Female (finding) [facility] Medical Equipment Procedure Code Equipment Code Equipment Origin al Text Equipment Identifier Dates 1 strip by In Vi tro route Daily Use in the morning prior to breakfast, 1 hour after each meal for a total of 4times daily. [id number] Start: 09-29-2024 End: 11-04-2024 1 each by In Vit ro route Daily Use to check FSBS four times daily [id number] Start: 09-29-2024 End: 09-30-2024 USE 1 EACH TO CH ALESSANDRA GLUCOSE 4 TIMES DAILY [id number] Start: 09-30-2024 End: 11-04-2024 Clinical Notes 02-24-2021 to 12-23-2024 Tamy Collazo LPN - 12/23/2024 11:30 AM Yelena Collazo LPN - 12/02/2024 10:50 AM Faiza Mcnulty MD - 11/20/2024 10:00 AM Nghia Raza RN - 11/20/2024 10:00 AM Ruperto Instructions Note Date & Type Note Facility 12-23-2024 History of Present illness Narrative Reason for [...] Constitutional: Appearance: Normal appearance. She is well-developed. Genitourinary: Vulva normal. Cardiovascular: Rate and Rhythm: Normal rate and [...] nursing note reviewed. Exam conducted with a senior manager mergers & acquisitions present. Vitals: Estimated body mass index is 27.75 kg/m as calculated from the following: Height as of 03/13/23: 5' 11 . Weight as of 12/16/24: 199 lb. BP: Patient's last menstrual period was 04/06/2024. ASSESSMENT & PLAN ICD-10-CM 1. 37 weeks gestation of Z3A.37 2. Third trimester Z34.93 Return OB: Patient presents today for a routine obstetrics appointment. Patient is currently 37w2d . Patient states she is doing well but has complaints of being tired due to current . Patient has verbalizes frequent movement. labor precautions was discussed/given and patient was instructed to perform kick counts three times a day. No orders of the defined types were placed in this encounter. Follow Up: Patient is to return to office in 1 week for routine OB appointment. Documented by Tamy Collazo LPN on behalf of: Jake Miramontes DO documented in this encounter [facility] 12-02-2024 History of Present illness Narrative Reason [...] nursing note reviewed. Exam conducted with a senior manager mergers & acquisitions present. Vitals: Estimated body mass index is [...] kick counts three times a day. Reviewed MFM ultrasound with pt in detail. Pt to start NST/BPP. Orders Placed This Encounter Procedures POCT urinalysis dipstick manually resulted Follow Up: Patient is to return to office in 2 week for routine OB appointment. Documented by Tamy Collazo LPN on behalf of: Jake Miramontes DO documented in this encounter [facility] 11-20-2024 History of Present illness Narrative REASON FOR CONSULTATION: Suspected ventriculomegaly HISTORY OF PRESENT ILLNESS: Phillip Noriega is a pleasant 29 y.o. G two P0 010. at 32w4d due on Estimated Date of Delivery: 01/11/25 . Patient was seen today due to the following 1. Maternal gastric sleeve procedure. Patient had robotic gastric sleeve procedure performed at [facility]. Patient has lost weight. Patient became after [...] changing positions with working out or riding [employer] Visual impairment wears glasses PAST OBSTETRICAL HISTORY: OB History 2 Para 0 Term AB 1 Living SAB 1 IAB Ectopic Multiple Live Births SURGICAL HISTORY: Past Surgical History: Procedure Laterality Date CHOLECYSTECTOMY COLONOSCOPY N/A 11/13/2018 Performed by Emanuel Reagan DO at [facility] EGD N/A 11/13/2018 Performed by Emanuel Reagan DO at [facility] LAPAROSCOPIC GASTRIC BANDING ALLERGIES: Allergies Allergen Reactions [...] taking: Reported on 11/01/2023), Disp: , Rfl: oxnzsnyf-uwhc-GP-calcium &mins (THERAGRAN-M) 9 mg iron-400 mcg tablet, [...] and the other consultants, we search on Manufacturers[employer] Inventory and all the available care everywhere [facility] I did review all the imaging studies of the patient available on EMR, ordered by the primary care physician and the other organizational development consultant HABITS: Patient activity no restrictions, diet [...] patient is in complete care of her cleater. Patient does not have any future appointment [...] No Have you been seen here at [facility] in a previous ? No Recent ER visits or hospitalizations? No Bring blood sugar log or meter with you today? (Please bring them with you for every visit at [facility]) N/A Flu vaccine (Aug-December)? No Any concerns that you would like me to mention to the provider today? No documented in this encounter [employer] 11-18-2024 History of Present illness Narrative Reason [...] nursing note reviewed. Exam conducted with a senior manager mergers & acquisitions present. Vitals: Estimated body mass index is [...] Garveyally signed by Tamy Collazo LPN at 11/23/2024 11:17 AM EST documented in this encounter [facility] 11-04-2024 History of Present illness Narrative Reason [...] nursing note reviewed. Exam conducted with a senior manager mergers & acquisitions present. Vitals: Estimated body mass index is [...] Jake Miramontes DO documented in this encounter [facility] 10-22-2024 History of Present illness Narrative Reason [...] nursing note reviewed. Exam conducted with a senior manager mergers & acquisitions present. Vitals: Estimated body mass index is [...] Jake Miramontes DO documented in this encounter [facility] 09-29-2024 History of Present illness Narrative Reason for Appointment: Patient ID: Phillip Noirega is a 29 y.o. female who presents [...] nursing note reviewed. Exam conducted with a senior manager mergers & acquisitions present. Vitals: Estimated body mass index is [...] Jake Miramontes DO documented in this encounter [facility] 09-01-2024 History of Present illness Narrative Reason [...] nursing note reviewed. Exam conducted with a senior manager mergers & acquisitions present. Vitals: Estimated body mass index is [...] Jake Miramontes DO documented in this encounter [facility] 08-03-2024 History of Present illness Narrative Reason [...] nursing note reviewed. Exam conducted with a senior manager mergers & acquisitions present. Vitals: Estimated body mass index is [...] of: MORA Jackson documented in this encounter [facility] 07-07-2024 History of Present illness Narrative Reason [...] nursing note reviewed. Exam conducted with a senior manager mergers & acquisitions present. Vitals: Estimated body mass index is [...] or undercooked meat, and stay away from [facility]. Patient has been consulted regarding any further do's and don'ts of . Patient voiced understanding and all questions and concerns were answered. Orders Placed This Encounter Procedures POCT urinalysis dipstick manually resulted Follow Up: Patient is to return in 4 weeks for routine OB appointment. Documented by Tamy Collazo LPN on behalf of: Jake Miramontes DO documented in this encounter [facility] 07-04-2022 History of Present illness Narrative Patient [...] for or 07/03/22 documented in this encounter TREVON BARCENAS [email or web address] Work Phone: 07-04-2022 Hospital Discharge instructions Garrett Corcoran, - 07/04/2022 8:07 AM EDT Discharge Instructions for Bariatric Surgery You had a Laparoscopic Sleeve Gastrectomy (02937) surgery to treat obesity. Recovery from this [...] scheduled appointment, please call the office at [phone]. Call Your Doctor If Any of the [...] 911 immediately. documented in this encounter [employer] Work Phone: 02-24-2021 Note Chief Complaint Referral for [...] states she had a colonoscopy performed in [facility] in 2018 as well as EGD and [...] are mucoid-like in nature N/V/blood/frequency: Positive nausea [place] Score: Typically she rates it for although up to 6 with blood MELD Score: Andry IV Score: Previous Labs: She states last blood work was done in [place] although I currently do not have the [...] areas. Neurologic: Awake, (more content not included)... [facility] Evaluation note Diagnosis S/P laparoscopic sleeve gastrectomy- Primary Obesity, unspecified classification, unspecified obesity type, unspecified whether serious comorbidity present Gastroesophageal reflux disease, unspecified whether esophagitis present documented in this encounter [employer] Work Phone: evaluation note* Diagnosis Well woman exam with routine gynecological exam Routine gynecological examination Exposure to STD Need for maternal serum alpha-protein (MSAFP) screening Second trimester state, incidental 17 weeks gestation of Screening, , for anatomic survey Encounter for anatomic survey documented in this encounter [facility]* Diagnosis 21 weeks gestation of [...] gastric sleeve- Primary documented in this encounter [facility]* Diagnosis Third trimester state, incidental 32 weeks gestation of [facility] Diagnosis Third trimester state, incidental 34 weeks gestation of Excessive growth affecting management of , antepartum, single or unspecified fetus documented in this encounter [facility]* Diagnosis Female infertility associated with anovulation Personal history of other diseases of the female genital tract documented in this encounter [facility]* Diagnosis Hypothyroidism, unspecified documented in this encounter [facility]* Diagnosis Third trimester state, incidental 36 weeks gestation of Excessive growth affecting management of , antepartum, single or unspecified fetus documented in this encounter [facility]* Diagnosis 37 weeks gestation of Third trimester state, incidental [facility]* Tamy Collazo LPN - 12/16/2024 1:00 PM EST Reason for [...] nursing note reviewed. Exam conducted with a senior manager mergers & acquisitions present. Vitals: Estimated body mass index is [...] of: Jake Miramontes DO documented in this encounter[facility] HealthcareInstructionsNot on filedocumented in this encounterProLancaster [facility] SystemInstructionsNot on filedocumented in this encounterWVUMed[facility] SystemInstructionsNot on filedocumented in this encounterPark[facility] Summary Purpose Family History No Family [...] and content) DATE CREATED AUTHOR 02/28/2021 [facility] DATE CREATED AUTHOR AUTHOR'S ORGANIZ ATION 04/27/2021 [facility] DATE CREATED AUTHOR AUTHOR'S ORGANIZ ATION 03/14/2023 [facility] DATE CREATED AUTHOR AUTHOR'S ORGANIZ ATION 11/29/2023 [facility] DATE CREATED AUTHOR AUTHOR'S ORGANIZ ATION 11/14/2024 [facility] DATE CREATED AUTHOR AUTHOR'S ORGANIZ ATION 12/18/2024 [facility] EPIC Reason for Visit (unrecogniz ed section and content) Specialty Diagnoses / Procedures Referred By Sis t Referred To Contact Diagnoses Obesity, unspecified classification, unspecified obesity type, unspecified whether serious comorbidity present Gastroesophageal reflux disease, unspecified whether esophagitis present OBESITY, GERD Procedures MD LAP, MEHUL RESTRICT PROC, LONGITUDINAL GASTRECTOMY XI ROBOTIC LAPAROSCOPIC GASTRECTOMY SLEEVE, EGD, LIVER BIOPSY - GI SCHEDULED Bret Wetzel DO [address] [place] [address] [facility] [address] [place] [address] Referral ID Status Reason Start Date Expiration Date Visits Re quested Visits Authorized [id number] 1 Reason Comments Routine Visit Reason [...] (Given - Provider: Robert Cobb APRN - LASER BEAM TRIM OPERATOR) heparin (porcine) injection 5,000 Units (COMPLETED) 5,000 [...] at 1015 1111 (Given - Provider: Bandar Burns, SUZANNE) pantoprazole (PROTONIX) tablet 40 mg 40 mg, [...] or Central Line = 20 mL/lumen, Post-op 4 (Not Given - Provider: Chichi Kwong RN [...] (NoRateChange - Provider: Robert Cobb APRN - LASER BEAM TRIM OPERATOR)1413 (Paused - Provider: Robert Cobb APRN - BRYANT - Comment: Switch to gravity)1414 (Restarted - Provider: Robert Cobb APRN - LASER BEAM TRIM OPERATOR)1456 (New Bag - Provider: Robert Cobb APRN - LASER BEAM TRIM OPERATOR)1630 (Anesthesia Volume Adjustment - Provider: Robert Cobb APRN - LASER BEAM TRIM OPERATOR) 1354 (Stopped - Provider: Donna Trammell RN) [...] PACU only 1628 (Given - Provider: Diane Brandt, SUZANNE)1634 (Given - Provider: Diane Brandt RN) HYDROmorphone [...]
Care Teams (unrecognized sec tion and content) Firmware Software Verification Engineer Relationship Specialty Start Date End Date Jake Miramontes MD [address] [place] [address] PCP - General Obstetrics & Gynecology 06/18/22 Firmware Software Verification Engineer Relationship Specialty Start Date End Date Jake Miramontes DO [address] [place] [address] PCP - General Obstetrics & Gynecology 06/06/24 Firmware Software Verification Engineer Relationship Specialty Start Date End Date Karina Lopez DO [address] [place] [address] PCP - General Family Medicine 11/01/23 Firmware Software Verification Engineer Relationship Specialty Start Date End Date Jake Miramontes DO [address] [place] [address] PCP - General Obstetrics & Gynecology 06/06/24 [...] BE BASED ON THE PRIMARY CLINICAL RECORDS. [employer] provides no warranty or guarantee of the accuracy or completeness of information in this document.
[2024-12-25 05:37] LABS: Hematocrit 36.3 % (36.0-48.0); Hemoglobin 12.6 g/dL (12.0-16.0); Mean Corpuscular HGB Conc 34.7 g/dL (29.9-35.2); Mean Corpuscular Hemoglobin 32.3 pg (26.7-34.0); Mean Corpuscular Volume 93.1 fL (81.0-99.0); Mean Platelet Volume 9.2 fL (9.5-13.5); Platelet Count 201 10^3/uL (150-450); Red Cell Distribution Width 11.6 % (11.0-15.0); White Blood Count 10.1 10^3/uL (4.0-11.0)
[2024-12-25] MEDS: 0.9 % SODIUM CHLORIDE 1,000 ML 125 ML IV (05:45)
[2024-12-25 05:56] LABS: Amphetamine Screen Urine NEGATIVE (NEGATIVE); Barbiturates Screen Urine NEGATIVE (NEGATIVE); Benzodiazepines Screen Urine NEGATIVE (NEGATIVE); Buprenorphine Screen Urine NEGATIVE (NEGATIVE); Cannabinoid Screen Urine NEGATIVE (NEGATIVE); Cocaine Screen Urine NEGATIVE (NEGATIVE); Methadone Screen Urine NEGATIVE (NEGATIVE); Methamphetamines Screen Urine NEGATIVE (NEGATIVE); Opiate Screen Urine NEGATIVE (NEGATIVE); Oxycodone Screen Urine NEGATIVE (NEGATIVE); Phencyclidine Screen Urine NEGATIVE (NEGATIVE); Tricyclic Antidepressant Urine NEGATIVE (NEGATIVE)
[2024-12-25] MEDS: OXYTOCIN/0.9 % SODIUM CHLORIDE 10 UNITS/500 ML PLAST..BAG 6 UNIT IV (06:02)
[2024-12-25] MEDS: 0.9 % SODIUM CHLORIDE 1,000 ML 1000 ML IV (09:41)
[2024-12-25] MEDS: ROPIVACAINE HCL/PF 400 MG/200 ML PREMIX 6 MG EPIDURAL (09:41)
[2024-12-25] MEDS: EPHEDRINE SULFATE 50 MG/ML VIAL IV (11:05)
--- NOTE | 2024-12-25 17:52 | PM.OBPRCVD ---
Procedure Intrapartal events: None Induction method: per pitocin protocol Delivery augmentation: rupture of membranes and pitocin Delivery monitor: external FHT and external uterine Route of delivery: Episiotomy Description: midline L&D Laceration Description: perineal - 2nd degree Delivery repair: Vicryl Estimated blood loss (mL): 200 Anesthesia type: Epidural Disposition: floor Infant Delivery date: 12/25/24 Gender: male presentation: vertex Placental delivery description: Spontaneous cord description: 3 Vessels and Nuchal Cord
[2024-12-25] MEDS: OXYTOCIN/0.9 % SODIUM CHLORIDE 20 UNITS/1,000 ML PLAST..BAG 125 UNIT IV (18:12)
[2024-12-25] MEDS: LIDOCAINE HCL 1% 200 MG/20 ML MDV INJ (18:13)
[2024-12-25] MEDS: IBUPROFEN 600 MG TABLET PO (18:29)
[2024-12-25] MEDS: GLYCERIN/WITCH HAZEL PADS 1 PAD TOPICAL (18:30)
[2024-12-25] MEDS: BENZOCAINE/MENTHOL 85 GRAM SPRAY BOTTLE 1 APPLIC TOPICAL (18:30)
[2024-12-26] VITALS (7 sets, daily range): BP systolic 111–113; BP diastolic 62–82; PULSE 58–78; TEMP 35.6–37.1
[2024-12-26] MEDS: ACETAMINOPHEN 325 MG TABLET 650 MG PO ×3 (02:15→16:21)
[2024-12-26] MEDS: TEMAZEPAM 15 MG CAPSULE PO (02:15)
[2024-12-26 06:27] LABS: Basophils Percent Auto 0.2 % (0.2-2.0); Eosinophils Absolute Auto 0.2 10^3/uL (0.0-0.7); Eosinophils Percent Auto 1.1 % (0.9-7.0); Hematocrit 32.6 % (36.0-48.0); Hemoglobin 11.3 g/dL (12.0-16.0); Immature Granulocytes Abs Auto 0.07 10^3/uL (0.00-0.03); Immature Granulocytes Pct Auto 0.5 % (0.0-0.5); Lymphocytes Percent Auto 13.3 % (20.5-60.0); Mean Corpuscular HGB Conc 34.7 g/dL (29.9-35.2); Mean Corpuscular Hemoglobin 32.6 pg (26.7-34.0); Mean Corpuscular Volume 93.9 fL (81.0-99.0); Mean Platelet Volume 9.1 fL (9.5-13.5); Monocytes Absolute Auto 1.2 10^3/uL (0.3-0.8); Monocytes Percent Auto 7.7 % (1.7-12.0); Neutrophils Absolute Auto 11.7 10^3/uL (1.4-6.5); Neutrophils Percent Auto 77.2 % (43.0-75.0); Platelet Count 152 10^3/uL (150-450); Red Blood Count 3.47 10^6/uL (4.20-5.40); Red Cell Distribution Width 11.7 % (11.0-15.0); White Blood Count 15.1 10^3/uL (4.0-11.0)
[2024-12-26] MEDS: DOCUSATE SODIUM 100 MG CAPSULE PO ×2 (08:46→21:39)
--- NOTE | 2024-12-26 10:01 | PC.NURSE ---
cuddles alarm going off, RN to room pt has removed cuddles tag-explained importance of keeping cuddles on for infant security and rationale, pt states felt it would make his outfit tight and she thought she could just put it next to her, becomes slightly argumentative, reassurance given and again explained importance of security in hospital.
--- NOTE | 2024-12-26 10:32 | PM.OBPN ---
OB - PN: Subj Subjective Patient comments: no complaints and pain well controlled [place] status: doing well Exam Constitutional Vital Signs, click to edit/add: Last Vital Signs Temp 98.8 F 12/26/24 08:30 Pulse 78 12/26/24 08:30 Resp 16 12/26/24 08:30 BP 112/62 12/26/24 08:30 O2 Del Method Room Air 12/26/24 08:30 Documenting provider has reviewed patient's vital signs: yes Common normals: no apparent distress Respiratory Common normals: normal respiratory effort and clear to auscultation bilaterally Cardio Common normals: regular rate and regular rhythm GI Common normals: Normal to inspection, nondistended, normoactive bowel sounds present Extremity Common normals: no calf tenderness Results Labs Labs: Short CBC 12/26/24 Range/Units 06:22 WBC 15.1 H (4.0-11.0) 10^3/uL Hgb 11.3 L (12.0-16.0) g/dL Hct 32.6 L (36.0-48.0) % Plt Count 152 (150-450) 10^3/uL OB - PN: A/P Plan - Vaginal Delivery day: 1 Plan: routine care Time Spent with Patient Time: Total time spent is greater than 50% in coordination of care (as documented) at patient's floor/unit and/or counseling patient: Total time spent with greater than 50% in coordination of care (as documented) at patient's floor/unit and/or counseling patient: less than 15 minutes
[2024-12-27 09:15] VITALS: TEMP 36.2
[2024-12-27 09:16] VITALS: BP 119/68; PULSE 78
--- NOTE | 2024-12-27 13:23 | P.OBPN_ITS ---
OB - PN: Subj Subjective Patient comments: no complaints and pain well controlled [place] status: doing well Exam Constitutional Vital Signs, click to edit/add: Last Vital Signs Temp 97.1 F L 12/27/24 09:15 Pulse 78 12/27/24 09:16 Resp 14 12/27/24 09:15 BP 119/68 12/27/24 09:16 O2 Del Method Room Air 12/27/24 09:15 Documenting provider has reviewed patient's vital signs: yes Common normals: no apparent distress Respiratory Common normals: normal respiratory effort and clear to auscultation bilaterally Cardio Common normals: regular rate and regular rhythm GI Common normals: Normal to inspection, nondistended, normoactive bowel sounds present Extremity Common normals: no clubbing, cyanosis or edema and no calf tenderness OB - PN: A/P Plan - Vaginal Delivery day: 2 Plan: routine care, discharge home and follow up 6 weeks Time Spent with Patient Time: Total time spent is greater than 50% in coordination of care (as documented) at patient's floor/unit and/or counseling patient: Total time spent with greater than 50% in coordination of care (as documented) at patient's floor/unit and/or counseling patient: less than 15 minutes
== END 2024-12-27 13:15 | disposition home or self-care (01) | DRG 560 ==
PROVIDERS: Admitting Provider Obstetrics & Gynecology; Visit Provider Obstetrics & Gynecology
DX: O36.63X0 Maternal care for excessive fetal growth, third trimester, not applicable or unspecified (principal); O70.1 Second degree perineal laceration during delivery; O69.81X0 Labor and delivery complicated by cord around neck, without compression, not applicable or unspecified; O99.62 Diseases of the digestive system complicating childbirth; K21.9 Gastro-esophageal reflux disease without esophagitis; Z3A.38 38 weeks gestation of pregnancy; Z37.0 Single live birth; Z98.84 Bariatric surgery status; Z88.1 Allergy status to other antibiotic agents; Z91.040 Latex allergy status; Z79.899 Other long term (current) drug therapy; Z23 Encounter for immunization
CPT/HCPCS: 36415; 51702; 59050; 59410; 76816; 76818; 80307; 85025; 85027; 86850; 86900; 86901; J2795

== ENCOUNTER 2025-07-13 17:27 | Emergency (ER) | payer MEDICAID, SELFPAY ==
--- OUTSIDE RECORDS SUMMARY | 2025-07-01 13:10 | XMS_ITS | Encounter Summary ---
Author Organization [facility] Address [address] [place] [address] Care Team Providers Care Water Inspector Name Role Phone Unavailable Primary Care Provider Unavailabl e Reason for Visit * Reason Comments Depression Pt present today for post depression/anxiety and a IUD string check. Encounter Details Date Type Department Care Team (Latest Contact Info) Description 07/01/2025 1:10 PM EDT Visit [facility]IGG[facility] [address] [address] Nicki Jama, CATERINA [address] [place] [address] Mood changes (Primary Dx); Post depression ; anxiety ([facility]); Intrauterine device surveillance Social History Tobacco Use Types Packs/Day Years Used Date Smoking Tobacco: Never Smokeless Tobacco: Never Alcohol Use Standard Drinks/Week Comments Not Currently 0 (1 standard drink = 0.6 oz pur e alcohol) occasional Comments No Sex and Gender Information Value Date Recorded Sex Assigned at Not on file Legal Sex Female 7:08 PM EDT Gender Identity Not on file Sexual Orientation Not on file documented as of this encounter Last Filed Vital Signs Vital Sign Reading Time Taken Comments Blood Pressure 118/76 07/01/2025 1:22 PM EDT Pulse - - Temperature - - Respiratory Rate - - Oxygen Saturation - - Inhaled Oxygen Concentration - - Weight 72.1 kg (159 lb) 07/01/2025 1:22 PM EDT Height 180.3 cm (5' 11 ) 07/01/2025 1:22 PM EDT Body Mass Index 22.18 07/01/2025 1:22 PM EDT documented in this encounter Progress Notes * Nicki Jama CATERINA - 07/01/2025 1:10 PM EDT Reason for Appointment: Patient ID: Phillip Avalos is a 30 y.o. female who presents for Depression (Pt present today for post depression/anxiety and a IUD string check. ) Patient presents today for Post anxiety/depression and an IUD string check. MEDICATIONS Current Outpatient Medications Medication Instructions venlafaxine XR (EFFEXOR XR) 37.5 mg, Oral, Daily ALLERGIES Allergies Allergen Reactions Latex Itching and Rash Other Reaction(s): Unknown Sulfamethoxazole-Trimethoprim Hives Other Reaction(s): Unknown Hives to face Hives to face PROBLEMS Active Ambulatory Problems Diagnosis Date Noted Positive blood test ([facility]) 04/27/2024 Missed menses 05/05/2024 Encounter for insertion of Mirena IUD 03/31/2025 Resolved Ambulatory Problems Diagnosis Date Noted No Resolved Ambulatory Problems Past Medical History: Diagnosis Date Anxiety Depression Desire for History of miscarriage Obesity (BMI 30-39.9) Pityriasis alba Thyrotoxicosis, 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 Musculoskeletal: Negative. Skin: Negative. Neurological: Negative. Psychiatric/Behavioral: Positive for dysphoric mood. All other systems reviewed and are negative. Hematological: Negative. Endocrine: Negative. Allergic/Immunologic: Negative. OBJECTIVE Objective: Physical Exam Constitutional: Appearance: Normal appearance. She is well-developed. Genitourinary: Vulva normal. Genitourinary Comments: IUD strings visualized on examination Cardiovascular: Rate and Rhythm: Normal rate and [...] nursing note reviewed. Exam conducted with a marketing designer present. Vitals: Estimated body mass index is 23.54 kg/m?? as calculated from the following: Height as of 03/13/23: 5' 11 . Weight as of 03/31/25: 168 lb 12.8 oz. BP: No LMP recorded. ASSESSMENT & PLAN ICD-10-CM 1. 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 anxiety ([facility]) O99.345 F41.8 3. Intrauterine device surveillance Z30.431 Pt present to discuss post anxiety/depression and an IUD string check. Pt delivered on 12/25/2024 and stated she has been dealing w/the anxiety since her went back to work after havingbaby. Pt was prescribed Effexor [address] Miramontes and pt stated she had been on it for a few months and seen no change and has stopped taking it. Pt would like to discuss what other options/medicat ion for her symptoms. Pt stated she gets frustrated w/baby when baby is crying and no chau with child. Pt does not have any suicidal thoughts or thought of harming her baby. Pt would also like TWISTHAND Nicki Jama to make sure strings are ok w/IUD and she has noticed her periods tapering down and more food service attendant. Pt had the IUD Mirena inserted on 03/31/2025. IUD String Check: Patient is doing well but has some complaints of bleeding and cramping following IUD placement. Patient presents today for IUD string check. Strings were visualized and are noted to be intact. Follow Up: Patient is to return to the office for annual exam unless needed otherwise. Documented by Glenda Cristina MA on behalf of: Nicki Jama NP documented in this encounter Plan of Treatment Upcoming Encounters Date Type Department Care Team (Late st Contact Info) Description 07/15/2025 8:10 AM EDT Office Visit [facility]IGGINS [address] [address] Jake Miramontes DO [address] [place] [address] documented as of this encounter Visit Diagnoses Diagnosis Mood changes- Primary Unspecified episodic mood disorder Post depression Mental disorders of mother, complicating , childbirth, or the puerperium, unspecified as to episode of care anxiety ([facility]) Intrauterine device surveillance documented in this encounter
[2025-07-13] VITALS (15 sets, daily range): BP systolic 108–122; BP diastolic 76–78; PULSE 62–81; TEMP 36.9; O2SAT 98–100; BMI 22.8
--- NOTE | 2025-07-13 17:40 | ECG_ITS ---
[facility] Test Date: 2025-07-13 Pat Name: SKYLER NORIEGA Department: Room: - Gender: Female Transmission Engineer: : 1995 Requested By: [id number] Order Number: [id number] Reading MD: ALEXIS PHILLIPS M.D. Measurements Intervals [place] Rate: 62 P: 47 VA: 126 QRS: 87 QRSD: 78 T: 64 QT: 396 QTc: 402 Interpretive Statements 1100 Sinus rhythm 9110 normal ECG Compared to ECG 01/11/2021 22:01:02 No significant changes Electronically Signed On 07-13-2025 20:22:35 EDT by ALEXIS PHILLIPS M.D.
--- NOTE | 2025-07-13 17:40 | CT_ITS ---
The [address] [address] Patient Name: SKYLER NORIEGA MRN: [id number] date: 1995 Sex: F Assigned Patient Location: ER Current Patient Location: .[facility] Accession/Order Number: [id number] Exam Date: 07/13/2025 17:45 Report Date: 07/13/2025 18:41 At the request of: JHONY SORIANO MD Procedure: CT stroke head/brain wo con CT stroke head/brain wo con 07/13/2025 5:48 PM SIGNS AND SYMPTOMS: new onset facial numbness TECHNIQUE:Multi-detector CT axial slices of the brain were obtained without IV contrast. CT was performed with one or more of the following dose reduction techniques: Automated exposure control, adjustment of the mA and/or kV according to patient size, or use of iterative reconstruction technique. COMPARISON: None. FINDINGS: There is no shift of the midline structures, acute intracranial bleeding, mass effects, or evidence of acute ischemia. The ventricular system is normal in size. The brainstem and the cerebellum are unremarkable. Mucosal thickening is noted in the ethmoid air cells and right frontal sinus. The visualized intraorbital contents and the infratemporal soft tissues show no acute abnormality. The osseous structures in the skull base and the calvarium show no abnormality. CT/CT stroke head/brain wo con IMPRESSION: No acute intracranial pathology. Mucosal thickening is noted in the ethmoid air cells and right frontal sinus. Impression dictated by: Magdiel Nielson M.D. 07/13/2025 6:41 PM Dictation Location: [place] [address] Electronically authenticated by: [id number] Y Date: 07/13/2025 18:41
--- OUTSIDE RECORDS SUMMARY | 2025-07-13 17:54 | XMS_ITS | Encounter Summary ---
Author Organization [facility] Address [address] [place] [address] Care Team Providers Care Invoice Control Clerk Name Role Phone Unavailable Primary Care Provider Unavailabl e Encounter Details Date Type Department Care Team (Late Contact Info) Description 10/16/2024 Abstract [facility] [place] [phone] aJke Miramontes, DO [address], [facility] Social History Tobacco Use Types Packs/Day Years Used Date Smoking Tobacco: Never Smokeless Tobacco: Never Alcohol Use Standard Drinks/Week Comments Not Currently 0 (1 standard drink = 0.6 oz pur e alcohol) occasional Comments Yes Sex and Gender Information Value Date Recorded Sex Assigned at Not on file Legal Sex Female 7:08 PM EDT Gender Identity Not on file Sexual Orientation Not on file documented as of this encounter Plan of Treatment Upcoming Encounters Date Type Department Care Team (Late Contact Info) Description 07/15/2025 8:10 AM EDT Office Visit KESHA HIGGINS [facility] [place] [phone] Jake Miramontes, [address], [facility] documented as of this encounter Visit Diagnoses Not on filedocumented in this encounter
--- OUTSIDE RECORDS SUMMARY | 2025-07-13 17:54 | XMS_ITS | Encounter Summary ---
Author Organization [facility] Address [address] [place] [address] Care Team Providers Care Sweater Operator Name Role Phone Unavailable Primary Care Provider Unavailabl e Encounter Details Date Type Department Care Team (Late Contact Info) Description 06/15/2024 Abstract [facility] [place] [phone] Jake Miramontes, DO [address], [facility]11 Social History Tobacco Use Types Packs/Day Years [...] 8:10 AM EDT Office Visit KESHA HIGGINS [facility] [place] [phone] Jake Miramontes, [address], [facility]11 documented as of this encounter Visit Diagnoses Not on filedocumented in this encounter
--- OUTSIDE RECORDS SUMMARY | 2025-07-13 17:54 | XMS_ITS | Patient Health Record ---
Author Organization [facility] Address [address] [place] [address] Care Team Providers Care Braider Tender Name Role Phone Dr. Robert Cordova Primary Care Provider Reason For Referral No Information Plan Of Treatment No Information Insurance Providers Payer Name Payer Address Payer Phone Subscriber Number Group Number Insured Name Patient Relationship to Insured Coverage Start Date Coverage End Date zPARAMOUN T ADVANTAGE -termed 22 [address] [place] [address] [id number] SKYLER NORIEGA Self - patient is the insured 2 zMEDICAID CFC after PARAMOUNT -termed 22 [address] [place] [address] [id number] SKYLER NORIEGA Self - patient is the insured 2 zDENTAL DQ PARAMOUNT -termed 22 [address] [place] [address] [id number] SKYLER NORIEGA Self - patient is the insured 2 zDental MEDICAID CFC after PARAMOUNT -termed 22 [address] [place] [address] [id number] SKYLER NORIEGA Self - patient is the insured 2
--- OUTSIDE RECORDS SUMMARY | 2025-07-13 17:54 | XMS_ITS | Encounter Summary ---
Author Organization [facility] Address [address] [place] [address] Care Team Providers Care Trade Facilitator Name Role Phone Unavailable Primary Care Provider Unavailabl e Encounter Details Date Type Department Care Team (Late Contact Info) Description 06/15/2024 Abstract [facility] [place] [phone] Jake Miramontes, DO [address], [facility] Social History Tobacco Use Types Packs/Day [...] 8:10 AM EDT Office Visit KESHA HIGGINS [facility] [place] [phone] Jake Miramontes, [address], [facility] documented as of this encounter Visit Diagnoses Not on filedocumented in this encounter
--- OUTSIDE RECORDS SUMMARY | 2025-07-13 17:54 | XMS_ITS | Encounter Summary ---
Author Organization [facility] Address [address] [place] [address] Care Team Providers Care Architectural Drafting Instructor Name Role Phone Unavailable Primary Care Provider Unavailabl e Reason for Visit * Reason Onset Date Comments Med Refill 07/05/2025 Encounter Details Date Type Department Care Team (Late Contact Info) Description 07/05/2025 Refill [facility] [address] [place] [address] Jake Miramontes DO [address], [place] [address] Gastroesophageal reflux disease without esophagitis Social History Tobacco Use Types Packs/Day Years [...] on file documented as of this encounter Miscellaneous Notes * Telephone Encounter - Marlys Awad LPN - 07/05/2025 8:30 AM EDT Pharmacy request refills. Marlys Sr LPN documented in this encounter Plan of Treatment Upcoming Encounters Date Type Department Care Team (Late Contact Info) Description 07/15/2025 8:10 AM EDT Office Visit [facility] [address] [facility] [place] [address] Fe, Jake, [address] [place] [address] documented as of this encounter Visit Diagnoses Diagnosis Gastroesophageal reflux disease without esophagitis Esophageal reflux documented in this encounter
--- OUTSIDE RECORDS SUMMARY | 2025-07-13 17:54 | XMS_ITS | Encounter Summary ---
Author Organization [facility] Address [address] [place] [address] Care Team Providers Care Transfer And Line Up Worker Name Role Phone Unavailable Primary Care Provider Unavailabl e Encounter Details Date Type Department Care Team (Late st Contact Info) Description 10/15/2024 Clinisync Result Encounter [facility] External Department Unsolicited Geraldine Miramontes DO [address], [place] [id number] Social History Tobacco Use Types Packs/Day Years [...] as of this encounter Miscellaneous Notes * Result Encounter Note - Althea Esparza LPN - 10/15/2024 4:16 PM EST Sent! documented in this encounter Plan of Treatment Upcoming Encounters Date Type Department Care Team (Late st Contact Info) Description 07/15/2025 8:10 AM EDT Office Visit [facility] [address] [place] [phone] Geraldine Miramontes DO [address] [place] [address] documented as of this encounter Procedures Procedure Name Priority Date/Time Associated Diagnosis Comments US OB GROWTH 10/15/2024 4:12 PM EST documented in this encounter Results * US OB GROWTH (10/15/2024 4:12 PM EST) Anatomical Region Laterality Modality Other 10/15/2024 4:12 PM EST Narrative 10/15/2024 4:14 [place] [address] Ultrasound Report Signed Patient: PHILLIP AVALOS MR#: [id number] : 1995 Acct:[id number] Age/Sex: 29 / F ADM Date: 10/15/24 Loc: [facility] Attending Dr: Geraldine Miramontes D.O. Ordering Physician: Geraldine Miramontes D.O. Date of Service: 10/15/24 Procedure(s): US OB growth Accession Number(s): [id number] cc: Geraldine Miramontes D.O.; Physician,Non-Staff M.D. The [place] [address] Patient Name: PHILLIP AVALOS MRN: [id number] date: 1995 Sex: F Assigned Patient Location: [facility] Current Patient Location: [facility] Accession/Order Number: [id number] Exam Date: 10/15/2024 15:09 Report Date: 10/15/2024 16:12 At the request of: GERALDINE MIRAMONTES Procedure: US OB growth EXAMINATION: US OB growth HISTORY: INCONSISTENT SIZE COMPARISON: No relevant comparison available. FINDINGS: Heart Rate: 157 bpm Amniotic Fluid Volume: 11.4 cm, largest fluid pocket 4.2 cm Number: 1 Position: Cephalic presentation, longitudinal lie BIOMETRY: BPD: 7.93 cm; 31 weeks 6 days; >97 % HC: 28.39 cm; 31 weeks 6 days; >97 % AC: 26.33 cm; 30 weeks 3 days; >97 % FL: 5.51 cm; 29 weeks 0 days; 81.20 % EFW: 1682.22 g; >97 %, 3 lbs. 6 oz. FL/AC: 20.93 FL/BPD: 69.48 HC/AC: 1.08 GESTATIONAL AGE: Age by EDC: 27 weeks 3 days KIERRA by EDC: 2025-01-11 Age by US: 30 weeks 0 days KIERRA by US: 2024-12-24 US/US OB growth IMPRESSION: Mildly prominent lateral ventricles as well as fluid surrounding the cortex. Further evaluation is recommended BPD, head circumference, abdominal circumference and estimated weight greater than the 97th percentile Electronically authenticated by: NATALIE KHAN Date: 10/15/2024 16:12 Dictated By: Natalie Khan M.D. Signed By: 10/15/241613 DD/ 11 TD/TT: Lugger: Procedure Note Radiology, Radiologist, MD - 10/15/2024 [place] [address] Ultrasound Report Signed Patient: PHILLIP AVALOS NMR#: [id number] : 1995Acct:[id number] Age/Sex: 29 / FADM Date: 10/15/24 Loc: [facility] Attending Dr: Geraldine Miramontes D.O. Ordering Physician: Geraldine Miramontes D.O. Date of Service: 10/15/24 Procedure(s): US OB growth Accession Number(s): [id number] cc: Geraldine Miramontes D.O.; Physician,Non-Staff Patti [facility] [place] [address] Patient Name: PHILLIP AVALOS MRN: [facility]:[id number] date: 1995 Sex: F Assigned Patient Location: [facility] Current Patient Location: [facility] Accession/Order Number: [id number] Exam Date: 10/15/2024 15:09 Report Date: 10/15/2024 16:12 At the request of: GERALDINE MIRAMONTES Procedure: US OB growth EXAMINATION: US OB growth HISTORY: INCONSISTENT SIZE COMPARISON: No relevant comparison available. FINDINGS: Heart Rate: 157 bpm Amniotic Fluid Volume: 11.4 cm, largest fluid pocket 4.2 cm Number: 1 Position: Cephalic presentation, longitudinal lie BIOMETRY: BPD: 7.93 cm; 31 weeks 6 days; >97 % HC: 28.39 cm; 31 weeks 6 days; >97 % AC: 26.33 cm; 30 weeks 3 days; >97 % FL: 5.51 cm; 29 weeks 0 days; 81.20 % EFW: 1682.22 g; >97 %, 3 lbs. 6 oz. FL/AC: 20.93 FL/BPD: 69.48 HC/AC: 1.08 GESTATIONAL AGE: Age by EDC: 27 weeks 3 days KIERRA by EDC: 2025-01-11 Age by US: 30 weeks 0 days KIERRA by US: 2024-12-24 US/US OB growth IMPRESSION: Mildly prominent lateral ventricles as well as fluid surrounding thecortex. Further evaluation is recommended BPD, head circumference, abdominal circumference and estimated fetalweight greater than the 97th percentile Electronically authenticated by: NATALIE KHAN Date: 10/15/2024 16:12 Dictated By: Natalie Khan M.D. Signed By:10/15/241613 DD/ 11 TD/TT: Lugger: us Geraldine Fe DO [facility] Final Result documented in this encounter Visit Diagnoses Not on filedocumented in this encounter
--- OUTSIDE RECORDS SUMMARY | 2025-07-13 17:54 | XMS_ITS | Encounter Summary ---
Author Organization [facility] Address [address] [place] [address] Care Team Providers Care Welder Assistant Name Role Phone Unavailable Primary Care Provider Unavailabl e Encounter Details Date Type Department Care Team (Late Contact Info) Description 12/25/2024 Abstract [facility] [place] [phone] Jake Miramontes, DO [address], [facility] Social History Tobacco Use Types Packs/Day Years [...] 8:10 AM EDT Office Visit KESHA HIGGINS [facility] [place] [phone] Jake Miramontes, [address], [place] [phone] documented as of this encounter Visit Diagnoses Not on filedocumented in this encounter
--- OUTSIDE RECORDS SUMMARY | 2025-07-13 17:54 | XMS_ITS | Encounter Summary ---
Author Organization [facility] Address [address] [place] [address] Care Team Providers Care Spinner Open End Name Role Phone Unavailable Primary Care Provider Unavailabl e Reason for Visit * Reason Onset Date Comments Med Refill 07/01/2025 Encounter Details Date Type Department Care Team (Late Contact Info) Description 07/01/2025 Refill KESHA HIGGINS [address] [place] [phone] Jake Miramontes DO [address], [place] [address] Gastroesophageal reflux in ([facility]) Social History Tobacco Use Types Packs/Day Years [...] 8:10 AM EDT Office Visit KESHA HIGGINS [facility] [place] [phone] Jake Miramontes DO [address], [place] [phone] documented as of this encounter Visit Diagnoses Diagnosis Gastroesophageal reflux in ([facility]) documented in this encounter
--- OUTSIDE RECORDS SUMMARY | 2025-07-13 17:54 | XMS_ITS | Clinical Summary ---
Author Organization [facility] Address [address] [place] [address] Care Team Providers Care Retail Advertising Sales Manager Name Role Phone Unavailable Primary Care Provider Unavailabl e Allergies Active Allergy Reactions Criticality Noted Date Comments Latex Itching,Rash Low 09/22/2020 Other Reaction(s): Unknown Sulfamethoxazole-Trimeth oprim Hives Low 07/02/2017 Other Reaction(s): Unknown Hives to face Hives to face Medications venlafaxine XR (Effexor XR) 37.5 MG 24 hr capsuleIndicatio ns:Anxiety, generalized Take 1 capsule (37.5 mg) by mouth Daily 30 capsule 3 5 04/28/20 26 Active buPROPion XL (Wellbutrin XL) 150 MG 24 hr tabletIndication s:Post depression,Mood changes Take 1 tablet (150 mg) by mouth Daily Do not crush, chew, or split. 30 tablet 5 07/31/20 25 Active omeprazole (PriLOSEC) [address] capsuleIndicatio ns:Heartburn TAKE 1 CAPSULE BY MOUTH IN THE MORNING , TAKE BEFORE MEALS. DO NOT CRUSH OR CHEW. 30 capsule 5 Active omeprazole (PriLOSEC) [address] capsuleIndicatio ns:Gastroesophag eal reflux disease without esophagitis Take 1 capsule (20 mg) by mouth in the morning. Take before meals. Do not crush or chew. 30 capsule 11 5 09/03/20 25 Active omeprazole (PriLOSEC) [address] capsuleIndicatio ns:Gastroesophag eal reflux in ([facility]) Take 1 capsule (20 mg) by mouth in the morning. Take before meals. Do not crush or chew. 30 capsule 1 5 07/01/20 25 Discontinu ed(Therapy completed) Active Problems Problem Noted Date Diagnosed Date Encounter for insertion of Mirena IUD 03/31/2025 Missed menses 05/05/2024 Positive blood test ([facility]) 04/27/20 24 Encounters Date Type Department Care Team Description 07/05/2025 Refill [facility] [address] [place] [address] Jake Miramontes DO Gastroesophageal reflux disease without esophagitis 07/04/2025 Refill [facility] [address] [place] [address] Jake Miramontes DO Heartburn 07/01/2025 1:10 PM EDT Visit [facility] [address] [place] [address] Nicki Jama NP Mood changes (Primary Dx); Post depression ; anxiety ([facility]); Intrauterine device surveillance 07/01/2025 Refill [facility] [address] [place] [address] Jake Miramontes DO Gastroesophageal reflux in ([facility]) 06/01/2025 Refill [facility] [address] [place] [address] Jake Miramontes DO Gastroesophageal reflux in ([facility]) 05/27/2025 Telephone [facility] [address] [place] [place] [address] Marlys Awad LPN 04/28/2025 Telephone [facility] [address] [place] [address] Marlys Awad LPN from Last 3 Months Family History Medical History Relation Name Comments Diabetes Maternal Grandmother G Heart disease Maternal Grandmother G Hypertension Maternal Grandmother G Multiple sclerosis Mother Relation Name Status Comments Father Alive Maternal Grandmother G Mother Alive Social History Tobacco Use Types Packs/Day Years Used Date Smoking Tobacco: Never Smokeless Tobacco: Never Tobacco Cessation:Counseling Given: Not Answered Alcohol Use Standard Drinks/Week Comments Not Currently 0 (1 standard drink = 0.6 oz pur e alcohol) occasional Comments No Sex and Gender Information Value Date Recorded Sex Assigned at Not on file Legal Sex Female 7:08 PM EDT Gender Identity Not on file Sexual Orientation Not on file Last Filed Vital Signs Vital Sign Reading Time Taken Comments Blood Pressure 118/76 07/01/2025 1:22 PM EDT Pulse 61 05/22/2022 9:50 AM EDT Temperature - - Respiratory Rate 18 05/22/2022 9:50 AM EDT Oxygen Saturation 97% 05/22/2022 9:50 AM EDT Inhaled Oxygen Concentration - - Weight 72.1 kg (159 lb) 07/01/2025 1:22 PM EDT Height 180.3 cm (5' 11 ) 07/01/2025 1:22 PM EDT Body Mass Index 22.18 07/01/2025 1:22 PM EDT Plan of Treatment Upcoming Encounters Date Type Department Care Team (Late st Contact Info) Description 07/15/2025 8:10 AM EDT Office Visit [facility] [address] [facility] [place] [address] Jake Miramontes DO [address] [place] [address] Health Maintenance Due Date Last Done Comments Influenza Vaccine (#1) 2025 07/11/2011 Cervical Cancer Screening 01/25/2028 HPV/Cotest 01/25/2028 Pap Smear 01/25/2028 2023 Procedures Procedure Name Priority Date/Time Associated Diagnosis Comments PAP SMEAR Routine 2023 12:00 AM EDT from Last 3 Months or Most Recently Relevant to Health Maintenance Results * Pap Smear (2023 12:00 AM EDT) Swab Cervical swab / Unknown Jake Miramontes DO LAB CYTOLOGY ORDERABLES Final Re sult EXTERNAL LAB from Last 3 Months or Most Recently Relevant to Health Maintenance Insurance [employer] MEDICAID [place]
--- OUTSIDE RECORDS SUMMARY | 2025-07-13 17:54 | XMS_ITS | Encounter Summary ---
Author Organization [facility] Address [address] [place] [address] Care Team Providers Care Spray Cementer Name Role Phone Unavailable Primary Care Provider Unavailabl e Encounter Details Date Type Department Care Team (Late Contact Info) Description 01/08/2025 Abstract [facility] [place] [phone] Jake Miramontes, DO [address], [facility]11 Social History Tobacco Use Types Packs/Day Years [...] 8:10 AM EDT Office Visit KESHA HIGGINS [facility] [place] [phone] Jake Miramontes, [address], [place] [id number] documented as of this encounter Visit Diagnoses Not on filedocumented in this encounter
--- OUTSIDE RECORDS SUMMARY | 2025-07-13 17:54 | XMS_ITS | Encounter Summary ---
Author Organization [facility] Address [address] [place] [address] Care Team Providers Care Managing Director Atlas Name Role Phone Unavailable Primary Care Provider Unavailabl e Encounter Details Date Type Department Care Team (Late Contact Info) Description 06/15/2024 Abstract [facility] HIGGINS [facility] [place] [phone] Jake Miramontes, DO [address], [facility]11 Social History Tobacco Use Types Packs/Day [...] 8:10 AM EDT Office Visit KESHA HIGGINS [facility] [place] [phone] Jake Miramontes, [address], [facility]11 documented as of this encounter Visit Diagnoses Not on filedocumented in this encounter
--- OUTSIDE RECORDS SUMMARY | 2025-07-13 17:54 | XMS_ITS | Encounter Summary ---
Author Organization [facility] Address [address] [place] [address] Care Team Providers Care Ultrasonic Welding Machine Operator Name Role Phone Unavailable Primary Care Provider Unavailabl e Encounter Details Date Type Department Care Team (Late Contact Info) Description 10/27/2024 Abstract [facility] HIGGINS [facility] [place] [phone] Jake Miramontes, DO [address], [facility]11 Social History Tobacco Use Types [...] 8:10 AM EDT Office Visit KESHA HIGGINS [facility] [place] [phone] Jake Miramontes, [address], [facility]11 documented as of this encounter Visit Diagnoses Not on filedocumented in this encounter
--- OUTSIDE RECORDS SUMMARY | 2025-07-13 17:54 | XMS_ITS | Encounter Summary ---
Author Organization [facility] Address [address] [place] [address] Care Team Providers Care Signals Intelligence Superintendent Name Role Phone Unavailable Primary Care Provider Unavailabl e Encounter Details Date Type Department Care Team (Late Contact Info) Description 10/22/2024 Abstract [facility] HIGGINS [facility] [place] [phone] Jake Miramontes, DO [address], [facility]11 Social History Tobacco Use Types [...] 8:10 AM EDT Office Visit KESHA HIGGINS [facility] [place] [phone] Jake Miramontes, [address], [place] [id number] documented as of this encounter Visit Diagnoses Not on filedocumented in this encounter
--- OUTSIDE RECORDS SUMMARY | 2025-07-13 17:54 | XMS_ITS | Clinical Summary ---
Author Organization [facility] Address [address], [address] [place] [address] Care Team Providers Care Station Attendant Name Role Phone Jake Miramontes MD Primary Care Provider [phone] Allergies Active Allergy Reactions Criticality Noted Date Comments Latex Rash Low 09/22/2020 Sulfamethoxazole-Trimethoprim Hives Low 2016 Hives to face Medications famotidine (PEPCID) 20 MG tablet Take 1 tablet by mouth 2 times daily As needed 11/02/2023 Active magnesium oxide (MAG-OX) 400 MG tablet Take 1 tablet by mouth daily 30 tablet 3 11/18/2023 Active vitamin D (ERGOCALCIFEROL ) 1.25 MG (44199 UT) CAPS capsuleIndicati ons:Vitamin D deficiency take 1 capsule by mouth every week 8 capsule 11/21/2023 Active Multiple Vitamins-Minera ls (THERAPEUTIC MULTIVITAMIN-ID NERALS) tablet Take 1 tablet by mouth daily Active promethazine (PHENERGAN) 25 MG tablet Take 1 tablet by mouth every 6 hours as needed for Nausea 30 tablet 11/27/2023 Active Active Problems Patient Care Coordination No te Formatting of this note is d ifferent from the original. Post -op Bariatric Summary Procedure: sleeve Surgeon:Dr. Manuel HT: 5 Date Weight Labs Ordered Labs Resulted Notes Initial Wt 12-21-21 270 Day of Surgery 07-03-22 266 1 Wk Post-op 07-12-22 247 5 Wk Post-op 08-13-22 234 Vit a? otc prescribed 3 Mon Post-op 12-03-22 197 ? ? 6 Mon Post-op ? 9 Mon Post-op Low mag and zinc? otc 1 Year Post-op ? Annual ? ? Starting at 1 Wk Post-op: Bariatric Multivitamin with iron and Calcium Problem Noted Date Diagnosed Date Overweight (BMI 25.0-29.9) 12/03/2022 S/P laparoscopic sleeve gastrectomy 07/03/2022 Essential hypertension 01/31/2022 GERD (gastroesophageal reflux disease) Obesity (BMI 30-39.9) Family History Medical History Relation Name Comments No Known Problems Father Other Mother Relation Name Status Comments Father Alive Mother Alive Social History Tobacco Use Types Packs/Day Years Used Date Smoking Tobacco: Never Smokeless Tobacco: Never Tobacco Cessation:Counseling Given: Not Answered Alcohol Use Standard Drinks/Week Comments Yes 0 (1 standard drink = 0.6 oz pur e alcohol) occ Interpersonal Safety Domain Source: IP Abuse Scr eening Answer Date Recorded Read-Only, Retired: Physical Abuse Denies 11/25/2023 Read-Only, Retired: Verbal Abuse Denies 11/25/2023 Read-Only, Retired: Emotional abuse Denies 11/25/2023 Read-Only, Retired: Financial Abuse Denies 11/25/2023 Read-Only, Retired: Sexual abuse Denies 11/25/2023 Comments No Sex and Gender Information Value Date Recorded Sex Assigned at Not on file Legal Sex Female 11:02 AM EST Gender Identity Not on file Sexual Orientation Not on file Last Filed Vital Signs Vital Sign Reading Time Taken Comments Blood Pressure 110/64 11/27/2023 11:15 AM EST Pulse 58 11/27/2023 11:15 AM EST Temperature 36.7 C (98.1 F) 11/27/2023 9:34 AM EST Respiratory Rate 13 11/27/2023 11:15 AM EST Oxygen Saturation 100% 11/27/2023 11:15 AM EST Inhaled Oxygen Concentration - - Weight 70.3 kg (155 lb) 11/27/2023 7:21 AM EST Height 177.8 cm (5' 10 ) 11/27/2023 7:21 AM EST Body Mass Index 22.24 11/27/2023 7:21 AM EST Plan of Treatment Health Maintenance Due Date Last Done Comments Depression Screen 2005 Varicella vaccine (1 of 2 - 13+ 2-dose series) 2006 HIV screen 01/25/2008 Hepatitis C screen 2011 DTaP/Tdap/Td vaccine (1 - Tdap) 01/25/2012 Hepatitis B vaccine (1 of 3 - 19+ 3-dose series) 01/25/2012 Pap smear 2014 Cervical cancer screen 2023 HPV (without or with Pap) 2023 Flu vaccine (#1) 05/28/2025 COVID-19 Vaccine (1 - 2023-2 5 season) 2025 HPV vaccine (No Doses Required) Completed Hepatitis A vaccine Aged Out No longe r eligible based on patient's age to complete this topic Hib vaccine Aged Out No longer eligi ble based on patient's age to complete this topic Meningococcal (ACWY) vaccine Aged Out No longer eligible based on patient's age to complete this topic Meningococcal B vaccine Aged Out No l onger eligible based on patient's age to complete this topic Pneumococcal 0-49 years Vaccine Aged Out No longer eligible based on patient's age to complete this topic Polio vaccine Aged Out No longer elig ible based on patient's age to complete this topic Medical Devices Implanted Type Area Pmo Business Analyst Device Identifier Shelf Expiration Date Model / Serial / Lot Clip Int L Polymer Lance Lig Hem O Lance (6ea/Pk) - [id number] Implanted:Qty: 1 on 11/27/2023 by Storm Manuel DO at [facility] N/A: [employer] 05/07/2028 [id number] / / [id number] Clip Int L Polymer Lance Lig Hem O Lance (6ea/Pk) - [id number] Implanted:Qty: 1 on 11/27/2023 by Storm Manuel DO at [facility] N/A: [employer] 12/11/2027 [id number] / / [id number] Insurance [address] [place] [address] MEDICAID Advance Directives * Full Code (Latest Code Status on File) Date Activated Date Inactivated Comments 07/03/2022 5:43 PM 07/04/2022 5:52 PM Care Teams Station Attendant Relationship Specialty Start Date End Date Jake Miramontes MD [address] [place] [address] PCP - General Obstetrics & Gynecology 06/18/22
--- OUTSIDE RECORDS SUMMARY | 2025-07-13 17:54 | XMS_ITS | Encounter Summary ---
Author Organization [facility] Address [address] [place] [address] Care Team Providers Care Wooden Furniture Polisher Name Role Phone Unavailable Primary Care Provider Unavailabl e Encounter Details Date Type Department Care Team (Late Contact Info) Description 01/05/2025 Abstract [facility] [place] [phone] Jake Miramontes, DO [address], [facility]11 Social History Tobacco Use Types Packs/Day Years [...] 8:10 AM EDT Office Visit KESHA HIGGINS [facility] [place] [phone] Jake Miramontes, [address], [facility]11 documented as of this encounter Visit Diagnoses Not on filedocumented in this encounter
--- OUTSIDE RECORDS SUMMARY | 2025-07-13 17:54 | XMS_ITS | Encounter Summary ---
Author Organization [facility] Address [address] [facility] [place] [address] Care Team Providers Care Asphalt Plant Operator Name Role Phone Unavailable Primary Care Provider Unavailabl e Encounter Details Date Type Department Care Team (Late Contact Info) Description 06/24/2024 Abstract [facility] [place] [phone] Jake Miramontes, DO [address], [facility]11 Social History Tobacco Use Types Packs/Day [...] 8:10 AM EDT Office Visit KESHA HIGGINS [facility] [place] [phone] Jake Miramontes, [address], [place] [phone] documented as of this encounter Visit Diagnoses Not on filedocumented in this encounter
--- OUTSIDE RECORDS SUMMARY | 2025-07-13 17:54 | XMS_ITS | Encounter Summary ---
Author Organization [facility] Address [address] [place] [address] Care Team Providers Care Green Building Engineer Name Role Phone Unavailable Primary Care Provider Unavailabl e Reason for Visit * Reason Comments Med Refill Encounter Details Date Type Department Care Team (Late st Contact Info) Description 07/04/2025 Refill KESHA HIGGINS [facility] [place] [address] Jake Miramontes, DO [address], [facility]11 Heartburn Social History Tobacco Use Types Packs/Day Years [...] 8:10 AM EDT Office Visit KESHA HIGGINS [facility] [place] [address] Jake Miramontes, DO [address], [facility]11 documented as of this encounter Visit Diagnoses Diagnosis Heartburn documented in this encounter
--- OUTSIDE RECORDS SUMMARY | 2025-07-13 17:54 | XMS_ITS | Encounter Summary ---
Author Organization [facility] Address [address] [place] [address] Care Team Providers Care Lag Screwer Name Role Phone Unavailable Primary Care Provider Unavailabl e Encounter Details Date Type Department Care Team (Late st Contact Info) Description 09/01/2024 Clinisync Result Encounter [facility] External Department Unsolicited Geraldine Miramontes [address] [place] [address] Social History Tobacco Use Types Packs/Day Years [...] EDT Office Visit [facility] [address] [place] [phone] Geraldine Miramontes DO [facility] [place] [address] documented as of this encounter Procedures Procedure Name Priority Date/Time Associated Diagnosis Comments US OB ANATOMY 09/01/2024 11:50 AM EST documented in this encounter Results * US OB ANATOMY (09/01/2024 11:50 AM EST) Anatomical Region Laterality Modality Other 09/01/2024 11:5 0 AM EST Narrative 09/01/2024 11:53 AM EST [address] [address] Ultrasound Report Signed Patient: PHILLIP AVALOS MR#: [id number] : 1995 Acct:[id number] Age/Sex: 29 / F ADM Date: 09/01/24 Loc: [facility] Attending Dr: Geraldine Miramontes D.O. Ordering Physician: Geraldine Miramontes D.O. Date of Service: 09/01/24 Procedure(s): US OB anatomy Accession Number(s): [id number] cc: Geraldine Miramontes D.O.; Physician,Non-Staff Patti [address] [address] Patient Name: PHILLIP AVALOS MRN: [id number] date: 1995 Sex: F Assigned Patient [facility]: [facility] Current Patient Location: [facility] Accession/Order Number: [id number] Exam Date: 09/01/2024 10:26 Report Date: 09/01/2024 11:50 At the request of: GERALDINE MIRAMONTES Procedure: US OB anatomy EXAMINATION: US OB anatomy, US OB cervical length HISTORY: ANATOMY COMPARISON: No relevant comparison available. TECHNIQUE: Transabdominal sonographic examination was performed for obstetrical and evaluation. FINDINGS: Number: 1 Heart Rate: 149 bpm H.B. /min Amniotic Fluid Volume: Subjectively normal position: Variable Placental Location: Anterior, placental edge is 7 cm from the internal os Cervix Length: 4.11 cm , closed Normal anatomy: Lateral ventricles, cerebellum, posterior fossa, nose, lips, orbits, four-chamber heart, RVOT, LVOT, diaphragm, stomach, kidneys, abdominal cord insertion, bladder, umbilical arteries, three-vessel cord, spine, extremities BIOMETRY: BPD: 5.29 cm; 22 weeks 0 days; 82.30 % HC: 20.74 cm; 22 weeks 6 days; 95 % AC: 18.44 cm; 23 weeks 2 days; 94.70 % FL: 3.96 cm; 22 weeks 5 days; 88.60 % EFW:523.68 g; 97 %, 1 lb. 3 oz. FL/AC: 21.48 FL/BPD: 74.86 HC/AC: 1.12 GESTATIONAL AGE: Age by EDC: 21 weeks 1 day KIERRA by EDC: 2025-01-11 Age by current US: 22 weeks 5 days KIERRA by current US: 2024-12-31 US/US OB anatomy IMPRESSION: Large for gestational age. Estimated weight greater than the 97th percentile Otherwise normal anatomy scan Closed cervix measuring 4.1 cm length *Reference: [employer] Practice Guideline for the performance of Obstetric Ultrasound Examinations, July 28, 2007. Electronically authenticated by: NATALIE KHAN Date: 09/01/2024 11:50 Dictated By: Natalie Khan M.D. Signed By: 09/01/24 1153 DD/ 1150 TD/TT: Supervisor Vacuum Metalizing: Procedure Note Radiology, Radiologist, MD - 09/01/2024 [place] [address] Ultrasound Report Signed Patient: PHILLIP AVALOS NMR#: [id number] : 1995Acct:[id number] Age/Sex: FADM Date: 09/01/24 Loc: [facility] Attending Dr: Geraldine Miramontes D.O. Ordering Physician: Geraldine Miramontes D.O. Date of Service: 09/01/24 Procedure(s): US OB anatomy Accession Number(s): [id number] cc: Geraldine Miramontes D.O.; Physician,Non-Staff M.Charlee The [place] [address] Patient Name: PHILLIP AVALOS MRN: [id number] date: 1995 Sex: F Assigned Patient Location: [facility] Current Patient Location: [facility] Accession/Order Number: [id number] Exam Date: 09/01/2024 10:26 Report Date: 09/01/2024 11:50 At the request of: GERALDINE MIRAMONTES Procedure: US OB anatomy EXAMINATION: US OB anatomy, US OB cervical length HISTORY: ANATOMY COMPARISON: No relevant comparison available. TECHNIQUE: Transabdominal sonographic examination was performed for obstetrical and evaluation. FINDINGS: Number: 1 Heart Rate: 149 bpm H.B. /min Amniotic Fluid Volume: Subjectively normal position: Variable Placental Location: Anterior, placental edge is 7 cm from the internal os Cervix Length: 4.11 cm , closed Normal anatomy: Lateral ventricles, cerebellum, posterior fossa, nose,lips, orbits, four-chamber heart, RVOT, LVOT, diaphragm, stomach, kidneys,abdominal cord insertion, bladder, umbilical arteries, three-vessel cord, spine, extremities BIOMETRY: BPD: 5.29 cm; 22 weeks 0 days; 82.30 % HC: 20.74 cm; 22 weeks 6 days; 95 % AC: 18.44 cm; 23 weeks 2 days; 94.70 % FL: 3.96 cm; 22 weeks 5 days; 88.60 % EFW:523.68 g; 97 %, 1 lb. 3 oz. FL/AC: 21.48 FL/BPD: 74.86 HC/AC: 1.12 GESTATIONAL AGE: Age by EDC: 21 weeks 1 day KIERRA by EDC: 2025-01-11 Age by current US: 22 weeks 5 days KIERRA by current US: 2024-12-31 US/US OB anatomy IMPRESSION: Large for gestational age. Estimated weight greater than the 97th percentile Otherwise normal anatomy scan Closed cervix measuring 4.1 cm length *Reference: [employer] Practice Guideline for the performance of Obstetric Ultrasound Examinations, July 28, 2007. Electronically authenticated by: NATALIE KHAN Date: 09/01/2024 11:50 Dictated By: Natalie Khan M.D. Signed By:09/01/24 1153 DD/ 1150 TD/TT: Supervisor Vacuum Metalizing: us Geraldine Fe DO [facility] Final Result documented in this encounter Visit Diagnoses Not on filedocumented in this encounter
--- OUTSIDE RECORDS SUMMARY | 2025-07-13 17:54 | XMS_ITS | Encounter Summary ---
Author Organization [facility] Address [address] [place] [address] Care Team Providers Care Brass Finisher Name Role Phone Unavailable Primary Care Provider Unavailabl e Encounter Details Date Type Department Care Team (Late Contact Info) Description 05/19/2024 Clinisync Result Encounter [facility] External Department Unsolicited Geraldine Miramontes [facility] [address] Social History Tobacco Use Types Packs/Day Years Used Date Smoking Tobacco: Never Alcohol Use Standard Drinks/Week Comments Not Currently 0 (1 standard drink = 0.6 oz pur e alcohol) occasional Comments Unknown Sex and Gender Information Value Date Recorded Sex Assigned at Not on file Legal Sex Female 7:08 PM EDT Gender Identity Not on file Sexual Orientation Not on file documented as of this encounter Plan of Treatment Upcoming Encounters Date Type Department Care Team (Late Contact Info) Description 07/15/2025 8:10 AM EDT Office Visit KESHA PETEGYIsaak [address] [address] [place] [phone] Geraldine Miramontes DO [facility] [place] [address] documented as of this encounter Procedures Procedure Name Priority Date/Time Associated Diagnosis Comments US OB TRANSVAGINAL 05/19/2024 11 :29 AM EDT documented in this encounter Results * US OB TRANSVAGINAL (05/19/2024 11:29 AM EDT) Anatomical Region Laterality Modality Other 05/19/2024 11:2 9 AM EDT Narrative 05/19/2024 11:31 [place] [address] Ultrasound Report Signed Patient: Phillip Avalos MR#: [id number] : 1995 Acct:[id number] Age/Sex: 29 / F ADM Date: 05/19/24 Loc: [facility] Attending Dr: Geraldine Miramontes D.O. Ordering Physician: Geraldine Miramontes D.O. Date of Service: 05/19/24 Procedure(s): US OB transvaginal Accession Number(s): [id number] cc: Geraldine Miramontes D.O.; Physician,Non-Staff Patti [place] [phone] Patient Name: PHILLIP AVALOS MRN: [id number] date: 1995 Sex: F Assigned Patient Location: [facility] Current Patient Location: [facility] Accession/Order Number: [id number] Exam Date: 05/19/2024 10:41 Report Date: 05/19/2024 11:29 At the request of: GERALDINE MIRAMONTES Procedure: US OB transvaginal EXAMINATION: US OB transvaginal HISTORY: VIABILITY COMPARISON: No relevant comparison available. FINDINGS: GESTATIONAL SAC: Present and normal appearing. YOLK SAC: Present and normal appearing. POLE: Present and normal appearing. CARDIAC: Present. UTERUS: Normal size and appearance. OVARIES: Right: Contains a 4.5 cm cyst. Left: Normal. CERVIX: 5.4 cm in length and closed. CUL-DE-SAC: Normal. OTHER: None. AGE BY LMP: 6 weeks 1 day KIERRA BY LMP: 01/11/2025 AGE BY US CRL: 6 weeks 3 days KIERRA BY US CRL: 01/09/2025 US/US OB transvaginal IMPRESSION: 1. Single live intrauterine . Electronically authenticated by: GILDARDO ESTEVEZ Date: 05/19/2024 11:29 Dictated By: Gildardo Estevez M.D. Signed By: 05/19/24 1131 DD/ 1129 TD/TT: Auto Technician Mechanic: Procedure Note Radiology, Radiologist, MD - 05/19/2024 [place] [address] Ultrasound Report Signed Patient: Phillip Avalos NMR#: [id number] : 1995Acct:[id number] Age/Sex: 29 / FADM Date: 05/19/24 Loc: [facility] Attending Dr: Geraldine Miramontes D.O. Ordering Physician: Geraldine Miramontes D.O. Date of Service: 05/19/24 Procedure(s): US OB transvaginal Accession Number(s): [id number] cc: Geraldine Miramontes D.O.; Physician,Non-Staff Patti The [place] [id number] Patient Name: PHILLIP AVALOS MRN: [facility]:[id number] date: 1995 Sex: F Assigned Patient Location: [facility] Current Patient Location: [facility] Accession/Order Number: [id number] Exam Date: 05/19/2024 10:41 Report Date: 05/19/2024 11:29 At the request of: GERALDINE MIRAMONTES Procedure: US OB transvaginal EXAMINATION: US OB transvaginal HISTORY: VIABILITY COMPARISON: No relevant comparison available. FINDINGS: GESTATIONAL SAC: Present and normal appearing. YOLK SAC: Present and normal appearing. POLE: Present and normal appearing. CARDIAC: Present. UTERUS: Normal size and appearance. OVARIES: Right: Contains a 4.5 cm cyst. Left: Normal. CERVIX: 5.4 cm in length and closed. CUL-DE-SAC: Normal. OTHER: None. AGE BY LMP: 6 weeks 1 day KIERRA BY LMP: 01/11/2025 AGE BY US CRL: 6 weeks 3 days KIERRA BY US CRL: 01/09/2025 US/US OB transvaginal IMPRESSION: 1. Single live intrauterine . Electronically authenticated by: GILDAROD ESTEVEZ Date: 05/19/2024 11:29 Dictated By: Gildardo Estevez M.D. Signed By:05/19/24 1131 DD/ 1129 TD/TT: Auto Technician Mechanic: us Geraldine Miramontes DO [facility] Final Result documented in this encounter Visit Diagnoses Not on filedocumented in this encounter
--- OUTSIDE RECORDS SUMMARY | 2025-07-13 17:54 | XMS_ITS | Encounter Summary ---
Author Organization [facility] Address [address] [place] [address] Care Team Providers Care Steam Clean Machine Operator Name Role Phone Unavailable Primary Care Provider Unavailabl e Encounter Details Date Type Department Care Team (Late Contact Info) Description 01/05/2025 Abstract [facility] [place] [phone] Jake Miramontes, DO [address], [facility]11 Social History Tobacco Use Types [...] 8:10 AM EDT Office Visit KESHA HIGGINS [facility] [place] [phone] Jake Miramontes, [address], [facility]11 documented as of this encounter Visit Diagnoses Not on filedocumented in this encounter
--- OUTSIDE RECORDS SUMMARY | 2025-07-13 17:54 | XMS_ITS | Encounter Summary ---
Author Organization [facility] Address [address] [facility] [place] [address] Care Team Providers Care Assignment Editor Name Role Phone Unavailable Primary Care Provider Unavailabl e Encounter Details Date Type Department Care Team (Late Contact Info) Description 05/28/2024 Abstract [facility] [place] [address] Jake Miramontes DO [address], [facility]11 Social History Tobacco Use Types Packs/Day [...] EDT Office Visit KESHA HIGGINS [facility] [place] [phone] Jake Miramontes DO [address], [facility]11 documented as of this encounter Visit Diagnoses Not on filedocumented in this encounter
--- OUTSIDE RECORDS SUMMARY | 2025-07-13 17:54 | XMS_ITS | Encounter Summary ---
Author Organization [facility] Address [address] [facility] [place] [address] Care Team Providers Care Data Collection Specialist Name Role Phone Unavailable Primary Care Provider Unavailabl e Encounter Details Date Type Department Care Team (Late Contact Info) Description 05/19/2024 Abstract [facility] [address] [place] [address] Jake Miramontes DO [address], [facility]11 Social History Tobacco Use Types Packs/Day Years [...] 8:10 AM EDT Office Visit KESHA HIGGINS [facility] [place] [phone] Jake Miramontes DO [address], [facility]11 documented as of this encounter Visit Diagnoses Not on filedocumented in this encounter
--- OUTSIDE RECORDS SUMMARY | 2025-07-13 17:54 | XMS_ITS | Encounter Summary ---
Author Organization [facility] Address [address] [place] [address] Care Team Providers Care Bead Forming Machine Set Up Operator Name Role Phone Unavailable Primary Care Provider Unavailabl e Encounter Details Date Type Department Care Team (Late Contact Info) Description 06/13/2024 Abstract [facility] HIG[facility] [place] [phone] Jake Miramontes, DO [address], [facility]11 Social History Tobacco Use Types Packs/Day [...] KESHA HIGGINS [facility] [place] [phone] Jake Miramontes, [address] [place], [place] [phone] documented as of this encounter Visit Diagnoses Not on filedocumented in this encounter
--- OUTSIDE RECORDS SUMMARY | 2025-07-13 17:54 | XMS_ITS | Encounter Summary ---
Author Organization [facility] Address [address] [place] [address] Care Team Providers Care Road Sign Installer Name Role Phone Unavailable Primary Care Provider Unavailabl e Encounter Details Date Type Department Care Team (Late st Contact Info) Description 12/13/2023 External Result Encounter [facility] [address] [place] [phone] Jaek Miramontes DO [address] [place] [address] Social History Tobacco Use Types Packs/Day Years Used Date Smoking Tobacco: Never Assessed Comments Unknown Sex and Gender Information Value Date Recorded Sex Assigned at Not on file Legal Sex Female 7:08 PM EDT Gender Identity Not on file Sexual Orientation Not on file documented as of this encounter Miscellaneous Notes * Result Encounter Note - Althea Esparza LPN - 12/13/2023 6:31 PM EST Talked to you about this one...jemima to follow. documented in this encounter Plan of Treatment Upcoming Encounters Date Type Department Care Team (Late st Contact Info) Description 07/15/2025 8:10 AM EDT Office Visit [facility] [address] [place] [phone] Jake Miramontes, [address] [place], [place] [phone] documented as of this encounter Procedures Procedure Name Priority Date/Time Associated Diagnosis Comments US PELVIS TRANSVAGINAL 6:29 PM EST ANTIMULLERIAN HORMONE (AMH) Routine 12/13/2023 7:43 AM EST documented in this encounter Results * US pelvis transvaginal (12/13/2023 6:29 PM EST) Anatomical Region Laterality Modality Pelvis Ultrasound 12/13/2023 6:29 PM EST Narrative 12/13/2023 6:28 PM EST THIS EXAM WAS PERFORMED AT [facility] Clinical history: Pelvic pain Findings:Transabdominal ultrasound was performed of the pelvis.. Endovaginal [...] Nikos Friend MD on 12/13/2023 6:28 PM Procedure Note Radiology, Radiologist, MD - 12/13/2023 THIS EXAM WAS PERFORMED AT [facility] Clinical history: Pelvic pain Findings:Transabdominal ultrasound was performed of the pelvis..Endovaginal sonography was also performed to better evaluate the pelvicand adnexal structures.. Uterus measures 8.7 cm in length and 4.3 cm AP diameter. Myometriumunremarkable. Endometrium measures 5.5 mm. Right ovary 5.8 x 3.6 x 4.8 cm. Left ovary 3.1 x 2.8 x 3.6 cm. Bilateral cystic masses. Cyst within the right ovary measures 4.9 x 3.9 x3.5 cm. Partially calcified. Other surrounding follicles present.Largest cyst left ovary measures 1.8 x 1.3 x 1.7 cm. This is probablyundergoing involution. Small amount of free fluid in the cul-de-sac.. Impression: Complex right ovarian cyst probably unchanged given differences intechnique when compared with the prior exam of 01/02/2023. This warrantscontinued imaging surveillance given the sonographic appearance.Specifically follow-up ultrasound in 3-4 months is advised. Finalized by Nikos Friend MD on 12/13/2023 6:28 PM us Jake Fe DO IMG US PROCEDURES Final Result * Antimullerian hormone (AMH) (12/13/2023 7:43 AM EST) ANTI MULLERIAN HORM See Below [facility] Comment: NOTE TEST RESULT FLAG UNIT REF.RANGE Anti Mclean Hormone 0.31 L ng/mL 0.58-8.13 Test Performed By: [facility] [place] [facility] [address] [place] [address] Tow Picker: Patti Jacobs III #[id number]^ PERFORMED AT [address] [place] [address] 12/13/2023 7:43 AM EST 12/13/2023 7:45 AM EST us Jake Fe DO LAB BLOOD ORDERABLES Final Resul t [facility] documented in this encounter Visit Diagnoses Not on filedocumented in this encounter
--- OUTSIDE RECORDS SUMMARY | 2025-07-13 17:54 | XMS_ITS | Encounter Summary ---
Author Organization [facility] Address [address] [facility] [place] [address] Care Team Providers Care Vegetable Tier Name Role Phone Unavailable Primary Care Provider Unavailabl e Encounter Details Date Type Department Care Team (Late Contact Info) Description 06/24/2024 Abstract [facility] [place] [phone] Jake Miramontes, DO [address], [facility]11 Social History Tobacco Use Types [...] Office Visit KESHA HIGGINS [facility] [place] [phone] Jake Miramontes, [address] [place], [place] [phone] documented as of this encounter Visit Diagnoses Not on filedocumented in this encounter
--- OUTSIDE RECORDS SUMMARY | 2025-07-13 17:54 | XMS_ITS | Encounter Summary ---
Author Organization [facility] Address [address] [facility] [place] [address] Care Team Providers Care Sugar Cane Planting Equipment Operator Name Role Phone Unavailable Primary Care Provider Unavailabl e Encounter Details Date Type Department Care Team (Late Contact Info) Description 08/26/2024 Abstract [facility] [place] [phone] Jake Miramontes, DO [address], [facility]11 Social History Tobacco Use Types Packs/Day [...] 8:10 AM EDT Office Visit KESHA HIGGINS [facility] [place] [phone] Jake Miramontes, [address] [place], [place] [phone] documented as of this encounter Visit Diagnoses Not on filedocumented in this encounter
--- OUTSIDE RECORDS SUMMARY | 2025-07-13 17:54 | XMS_ITS | Encounter Summary ---
Author Organization [facility] Address [address] [facility] [place] [address] Care Team Providers Care Mechanical Service Representative Name Role Phone Unavailable Primary Care Provider Unavailabl e Encounter Details Date Type Department Care Team (Late Contact Info) Description 08/26/2024 Abstract [facility] [place] [phone] Jake Miramontes, DO [address] [place], [facility]11 Social History Tobacco Use Types Packs/Day [...] 8:10 AM EDT Office Visit KESHA HIGGINS [place] [phone] Jake Miramontes, [address] [place], [place] [phone] documented as of this encounter Visit Diagnoses Not on filedocumented in this encounter
--- OUTSIDE RECORDS SUMMARY | 2025-07-13 17:54 | XMS_ITS | Encounter Summary ---
Author Organization [facility] Address [address] [place] [address] Care Team Providers Care Gravity Prospector Name Role Phone Unavailable Primary Care Provider Unavailabl e Encounter Details Date Type Department Care Team (Late st Contact Info) Description 09/01/2024 Clinisync Result Encounter [facility] External Department Unsolicited Geraldine Miramontes [address] [place] [address] Social History Tobacco Use Types Packs/Day Years [...] 07/15/2025 8:10 AM EDT Office Visit [facility] [place] [facility] [address] [place] [phone] Geraldine Miramontes DO [facility] [place] [address] documented as of this encounter Procedures Procedure Name Priority Date/Time Associated Diagnosis Comments US OB CERVICAL LENGTH 09/01/2024 11:50 AM EST documented in this encounter Results * US OB CERVICAL LENGTH (09/01/2024 11:50 AM EST) Anatomical Region Laterality Modality Other 09/01/2024 11:5 0 AM EST Narrative 09/01/2024 11:53 [place] [address] Ultrasound Report Signed Patient: PHILLIP AVALOS MR#: [id number] : 1995 Acct:[id number] Age/Sex: 29 / F ADM Date: 09/01/24 Loc: [facility] Attending Dr: Geraldine Miramontes D.O. Ordering Physician: Geraldine Miramontes D.O. Date of Service: 09/01/24 Procedure(s): US OB cervical length Accession Number(s): [id number] cc: Geraldine Miramontes D.O.; Physician,Non-Staff [place] [id number] Patient Name: PHILLIP AVALOS MRN: [id number] date: 1995 Sex: F Assigned Patient Location: [facility] Current Patient Location: [facility] Accession/Order Number: [id number] Exam Date: 09/01/2024 10:25 Report Date: 09/01/2024 11:50 At the request of: GERALDINE MIRAMONTES Procedure: US OB cervical length EXAMINATION: US OB anatomy, US OB cervical [...] KIERRA by current US: 2024-12-31 US/US OB cervical length IMPRESSION: Large for gestational age. Estimated weight greater than the 97th percentile Otherwise normal anatomy scan Closed cervix measuring 4.1 cm length *Reference: [employer] Practice Guideline for the performance of Obstetric Ultrasound Examinations, July 28, 2007. Electronically authenticated by: NATALIE KHAN Date: 09/01/2024 11:50 Dictated By: Natalie Khan M.D. Signed By: 09/01/24 1153 DD/ 1150 TD/TT: Pediatric Nephrologist: Procedure Note Radiology, Radiologist, MD - 09/01/2024 [place] [address] Ultrasound Report Signed Patient: PHILLIP AVALOS NMR#: [id number] : 1995Acct:[id number] Age/Sex: Date: 09/01/24 Loc: [facility] Attending Dr: Geraldine Miramontes D.O. Ordering Physician: Geraldine Miramontes D.O. Date of Service: 09/01/24 Procedure(s): US OB cervical length Accession Number(s): [id number] cc: Geraldine Miramontes D.O.; Physician,Non-Staff Patti [place] [address] Patient Name: PHILLIP AVALOS MRN: [id number] date: 1995 Sex: F Assigned Patient Location: [facility] Current Patient Location: [facility] Accession/Order Number: [id number] Exam Date: 09/01/2024 10:25 Report Date: 09/01/2024 11:50 At the request of: GERALDINE MIRAMONTES Procedure: US OB cervical length EXAMINATION: US OB anatomy, US OB cervical [...] KIERRA by current US: 2024-12-31 US/US OB cervical length IMPRESSION: Large for gestational age. Estimated weight greater than the 97th percentile Otherwise normal anatomy scan Closed cervix measuring 4.1 cm length *Reference: [employer] Practice Guideline for the performance of Obstetric Ultrasound Examinations, July 28, 2007. Electronically authenticated by: NATALIE KHAN Date: 09/01/2024 11:50 Dictated By: Natalie Khan M.D. Signed By:09/01/24 1153 DD/ 1150 TD/TT: Pediatric Nephrologist: us Geraldine Fe DO [facility] Final Result documented in this encounter Visit Diagnoses Not on filedocumented in this encounter
--- OUTSIDE RECORDS SUMMARY | 2025-07-13 17:54 | XMS_ITS | Encounter Summary ---
Author Organization [facility] Address [address] [place] [address] Care Team Providers Care Jewel Gauger Name Role Phone Unavailable Primary Care Provider Unavailabl e Encounter Details Date Type Department Care Team (Late Contact Info) Description 12/25/2024 Abstract [facility] [place] [phone] Jake Miramontes, DO [address] [place], [place] [...] 8:10 AM EDT Office Visit KESHA HIGGINS [facility] [place] [phone] Jake Miramontes, [address] [place], [place] [phone] documented as of this encounter Visit Diagnoses Not on filedocumented in this encounter
--- OUTSIDE RECORDS SUMMARY | 2025-07-13 17:54 | XMS_ITS | Encounter Summary ---
Author Organization [facility] Address [address] [place] [address] Care Team Providers Care Automotive Drivability Technician Name Role Phone Unavailable Primary Care Provider Unavailabl e Encounter Details Date Type Department Care Team (Late Contact Info) Description 08/03/2024 Abstract [facility] [place] [phone] Jake Miramontes, DO [address] [place], [facility]11 Social History Tobacco Use Types Packs/Day [...] 8:10 AM EDT Office Visit KESHA HIGGINS [facility] [place] [phone] Jake Miramontes, [address] [place], [place] [phone] documented as of this encounter Visit Diagnoses Not on filedocumented in this encounter
--- OUTSIDE RECORDS SUMMARY | 2025-07-13 17:54 | XMS_ITS | Encounter Summary ---
Author Organization [facility] Address [address] [place] [address] Care Team Providers Care Ammunition Storage Superintendent Name Role Phone Unavailable Primary Care Provider Unavailabl e Encounter Details Date Type Department Care Team (Late Contact Info) Description 06/22/2024 Abstract [facility] [place] [phone] Jake Miramontes, DO [address] [place], [facility]11 Social History Tobacco Use Types Packs/Day [...] 8:10 AM EDT Office Visit KESHA HIGGINS [facility] [place] [phone] Jake Miramontes, [address] [place], [place] [address] documented as of this encounter Visit Diagnoses Not on filedocumented in this encounter
--- OUTSIDE RECORDS SUMMARY | 2025-07-13 17:54 | XMS_ITS | Encounter Summary ---
Author Organization [facility] Address [address] [place] [address] Care Team Providers Care Revenue Investigator Name Role Phone Unavailable Primary Care Provider Unavailabl e Encounter Details Date Type Department Care Team (Late Contact Info) Description 12/27/2024 Abstract [facility] [place] [phone] Jake Miramontes, DO [address] [place], [facility]11 Social History Tobacco Use Types [...] 8:10 AM EDT Office Visit KESHA HIGGINS [facility] [place] [phone] Jake Miramontes, [address] [place], [place] [address] documented as of this encounter Visit Diagnoses Not on filedocumented in this encounter
--- OUTSIDE RECORDS SUMMARY | 2025-07-13 17:54 | XMS_ITS | Encounter Summary ---
Author Organization [facility] Address [address] [place] [address] Care Team Providers Care Vest Maker Name Role Phone Unavailable Primary Care Provider Unavailabl e Encounter Details Date Type Department Care Team (Late Contact Info) Description 06/15/2024 Abstract [facility] [place] [phone] Jake Miramontes, DO [address], [facility]11 Social History Tobacco Use Types Packs/Day [...] 8:10 AM EDT Office Visit KESHA HIGGINS [facility] [place] [phone] Jake Miramontes, [address] [place], [facility]11 documented as of this encounter Visit Diagnoses Not on filedocumented in this encounter
--- OUTSIDE RECORDS SUMMARY | 2025-07-13 17:54 | XMS_ITS | Encounter Summary ---
Author Organization [facility] Address [address] [place] [address] Care Team Providers Care Custodial Operations Manager Name Role Phone Unavailable Primary Care Provider Unavailabl e Encounter Details Date Type Department Care Team (Late Contact Info) Description 11/04/2024 Abstract [facility] [place] [phone] Jake Miramontes, DO [address], [facility]11 Social History Tobacco Use Types Packs/Day Years [...] 8:10 AM EDT Office Visit KESHA HIGGINS [facility] [place] [phone] Jake Miramontes, [address] [place], [place] [address] documented as of this encounter Visit Diagnoses Not on filedocumented in this encounter
--- OUTSIDE RECORDS SUMMARY | 2025-07-13 17:54 | XMS_ITS | Encounter Summary ---
Author Organization [facility] Address [address] [place] [address] Care Team Providers Care Crop Farmers Name Role Phone Unavailable Primary Care Provider Unavailabl e Encounter Details Date Type Department Care Team (Late Contact Info) Description 07/08/2024 Abstract [facility] [place] [phone] Jake Miramontes, DO [address] [place], [id number] Social History Tobacco Use Types Packs/Day Years [...] KESHA HIGGINS [facility] [place] [phone] Jake Miramontes, [address], [id number] documented as of this encounter Visit Diagnoses Not on filedocumented in this encounter
--- OUTSIDE RECORDS SUMMARY | 2025-07-13 17:54 | XMS_ITS | Encounter Summary ---
Author Organization [facility] Address [address] [place] [address] Care Team Providers Care Rubber Stamp Maker Name Role Phone Unavailable Primary Care Provider Unavailabl e Encounter Details Date Type Department Care Team (Late Contact Info) Description 11/20/2024 Abstract [facility] [place] [phone] Jake Miramontes, DO [address] [place], [facility] Social History Tobacco Use Types [...] 8:10 AM EDT Office Visit KESHA HIGGINS [facility] [place] [phone] Jake Miramontes, [address] [place], [place] [address] documented as of this encounter Visit Diagnoses Not on filedocumented in this encounter
--- OUTSIDE RECORDS SUMMARY | 2025-07-13 17:54 | XMS_ITS | Patient Health Record ---
Author Organization [facility] Address [address], [place] [address] Care Team Providers Care Account Consultant Name Role Phone Prema Cat Unavailable [phone] Allergies Allergen (clinical drug ingredient) Drug/Non Drug Allergy documented on EMR Reaction Allergy Type Onset Date Status Latex Latex rash Allergy Active Reason For Referral No Information Medications Medication SIG (Take, Route, Frequency, Duration) Notes Start Date End Date Status Levothyroxine Sodium 50 MCG 1 tablet in the morning on an empty stomach Orally Once a day; Duration: 30 days Active Social History Tobacco Use: Social History Observation Description Date Details (start date - stop date) Never Smoker NA - NA Sex Assigned At : Social History Observation Description Sex Assigned At Female Tobacco Use/Smoking Question Answer Notes Tobacco use: nonsmoker patient enter ed data CAGE-AID Questionnaire (2018 Edition) Question Answer Notes Have you ever felt that you ought to cut down on your drinking or drug use? No patient entered data Have people annoyed you by c riticizing your drinking or drug use? No patient entered data Have you ever felt bad or gu ilty about your drinking or drug use? No Have you ever had a drink or used drugs first thing in the morning to steady your nerves or to get rid of a hangover? No CAGE-AID Score 0 Interpretation Negative PRAPARE Question Answer Notes Date Completed/Updated: 10/22/2023 shady nt entered data What is your current housing situation? I have housing patient entered data Are you worried about losing your housing? No patient entered data What is the highest level of school that you have finished? 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 Check all that apply I choose not to answer this question Has lack of transportation k ept you from medical appointments, meetings, work or from getting things needed for daily living? No How often do you see or talk to people that you care about and feel close to? (For example: talking to friends on the phone, visiting friends or family, going to jew or club meetings) 3 to 5 times a week patient entered data How stressed are you? Stress is when someone feels tense, nervous, anxious, or can't sleep at night because their mind is troubled A little bit patient entered data In the past year have you sp ent more than 2 nights in a row in a alf, mcc, assisted center, or juvenile correctional facility? No patient entered blanquita a Are you a refugee? No patient en tered data What country are you from? [place] nely [place]aud[place] entered data Do you feel physically and emotionally safe where you currently live? Yes patient entered data In the past year, have you b een afraid of your partner or ex-partner? 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) Active confirmed Problem Body mass index 35.00 to 39.99 (197067052860365 ) Body mass index [BMI] 38.0-38.9, adult (Z68.38) Active confirmed Problem Hypothyroidism (66209289) Hypothyroidism, unspecified type (E03.9) Active confirmed Problem Dyspnea (839965518) SOB (shortness of breath) (R06.02) Active confirmed Problem Elevated liver enzymes level (993248708) Elevated liver function tests (R79.89) Active confirmed Problem Vasovagal syncope (335538371) Vasovagal syncope (R55) Active confirmed Problem Hypersomnia (79953562) Hypersomnolence (G47.10) Active confirmed Problem Dizziness (733616908) Dizziness (R42) Active confirmed Comment:Still feels dizzy after standing for a long time. 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 She was referred to cardiology and was advised to c/w SSRI (She was on Wellbutrin) for depression but has not taken that is a long time. She keep saying that she wants something done for her problems, yet she is not following recommendatio ns. She keep stating that her friend mentioned that this could be due to a blood disorder. I explained that I don't know what she is referring to but last CBC was fine and I explained that her dizziness is due to autonomic dysfunction/? Neurocardioge kermit, she stated How did you know it is not a blood problem . I discussed the condition and all results with patient. Advised to start taking Wellbutrin again. Schedule follow up with Cardiology. I also offered her a referral to Dr Vanessa at [facility] but she stated she is not trying to seek attention and refused. Offered her to see psychiatry as I think she is depressed but she refused and stated she is not depressed., Problem Loose stools (072441751) Loose stools (R19.5) Active confirmed Problem Chronic abdominal pain (246183985) Chronic abdominal pain (R10.9) Active confirmed Comment:buffy Crump f/u with GI per notes Will recheck labs and stool samples Denies corrine blood in stool Diarrhea and constipation alteranting monthly no pain improvement with bentyl, no longer taking advised to avoid dairy, PVU, Problem Mixed anxiety and depressive disorder (225763700) Anxiety and depression (F41.8) Active confirmed Comment:Coleen boateng for the last 2 years, worsened over the last 2 months Start SSRI discussed and agreed to c/w conseling at [facility] to help with the relationship strain and coping techniques Advised on SE's and time to take effectiveness PVU, f/u in 1 month, Problem Constipation (09408183) CN (constipation) (K59.00) Active confirmed Comment:Discu ssed to increase dietary fiber Prescribed Miralax.,Desc ription:Const ipation Plan Of Treatment No Information Insurance Providers Payer Name Payer Address Payer Phone Subscriber Number Group Number Insured Name Patient Relationship to Insured Coverage Start Date Coverage End Date [employer] [address] [place] [address] [id number] Phillip Avalos Self - patient is the insured 3 [employer] [facility] [address] [place] [address] [id number] Phillip Avalos Self - patient is the insured 3 [employer] after [employer] [address] [place], [place] [id number] Phillip Avalos Self - patient is the insured 3 Medicaid [employer] after [employer] [address] [place] [address] [id number] Phillip Avalos Self - patient is the insured 3 Medical (General) History Surgical History Surgery Date(Month/Year) Gastric Sleeve 07/03/2022 Hospitalization History Reason Date(Month/Year) Gastric Sleeve 07/03/2022
--- OUTSIDE RECORDS SUMMARY | 2025-07-13 17:54 | XMS_ITS | Encounter Summary ---
Author Organization [facility] Address [address] [place] [address] Care Team Providers Care Biodiesel Production Technician Name Role Phone Unavailable Primary Care Provider Unavailabl e Encounter Details Date Type Department Care Team (Late Contact Info) Description 11/25/2024 Abstract [facility] [place] [id number] Jake Miramontes, DO [address], [facility] Social History Tobacco Use Types Packs/Day [...] 8:10 AM EDT Office Visit KESHA HIGGINS [facility] [place] [phone] Jake Miramontes, [address], [place] [id number] documented as of this encounter Visit Diagnoses Not on filedocumented in this encounter
--- OUTSIDE RECORDS SUMMARY | 2025-07-13 17:57 | XMS_ITS | CCD ---
Author Organization [facility] Care Team Providers Care Job Foreman Name Role Phone Ct LEAL, Chayo Mina [...] DR CHANDLER Consulting Unavailable FE ., DR CHANDLRE Attending Unavailable FE ., DR CHANDLER Consulting Unavailable REQUEST, DR NONE LISTED Primary Care Unavaila ble FE ., DR CHANDLER Attending Unavailable FE ., DR CHANDLER Admitting Unavailable FE ., DR CHANDLER Admitting Unavailable REQUEST, NONE LISTED Primary Care Unavaila ble [place], DR NATALIE Yung Consulting Unavailable FE ., [...] Fe DO, Jake R Primary Care Provider [phone] [facility] DO, Karina K Primary Care Provider FE, JAKE Attending Unavailable FE, JAKE Attending Unavailable FE, JAKE Attending Unavailable FE, JAKE Attending Unavailable FE, JAKE Attending Unavailable FE, JAKE Attending Unavailable FE, JAKE Attending Unavailable KATHERINE BRIDGES Attending Unavailable FE, JAKE Attending Unavailable FE, JAKE Attending Unavailable FE, JAKE Attending Unavailable FE, JAKE Attending Unavailable FE, JAKE Attending Unavailable JOEY JAMA Attending Unavailable Allergies Allergy Classification Reported Allergen(s) Allergy Type Date of Onset Reaction(s) Facility (5 sources) Latex; Translations: [LATEX] Propensity to adverse reactions to drug 09-22-20 Rash [facility] (20 sources) Sulfamethoxazole / Trimethoprim; Translations: [SULFAMETHOXAZOLE-T RIMETHOPRIM] Drug Allergy 07-02-20 17 Hives [facility] Work Phone: (20 sources) Latex Propensity to [...] benzocaine-menthol (CEPACOL SORE THROAT) lozenge 1 lozenge 24 hr buPROPion hydrochloride 150 mg extended release oral tablet (2 sources) Aminoketone Start: 07-01-2025 End: 07-31-2025 take 1 tablet by mouth once daily buPROPion XL (Wellbutrin XL) 150 MG 24 hr tablet Indications: Post depression , Mood changes Take 1 tablet (150 mg) by mouth Daily Do not crush, chew, or split. 30 tablet 11 07/01/2025 07/31/2025 Active Calcium (4 sources) Phosphate Binder, Calcium Start: 06-16-2024 End: 07-16-2024 take 1 tablet by mouth once daily calcium 500 MG tablet Indications: Low calcium levels Take 1 tablet (500 mg) by mouth Daily 30 tablet 3 06/16/2024 07/16/2024 Active cyclobenzaprine hydrochloride 10 mg oral tablet [...] tablet (500 mg total) before bedtime. Active aefuiykz-bavp-ME-calcium &mins (THERAGRAN-M) 9 mg iron-400 mcg tablet (3 sources) fnpgrgdc-mfxa-NR -calcium &mins (THERAGRAN-M) 9 mg iron-400 mcg tablet Take 1 tablet by mouth in the morning. Active ugudyhld-wvrc-VK -calcium &mins (THERAGRAN-M) 9 mg iron-400 mcg [...] e flush 0.9 % injection 5-40 mL 24 hr venlafaxine 37.5 mg extended release oral capsule (2 sources) Serotonin and Norepinephrine Reuptake Inhibitor Start: 04-28-2025 End: 04-28-2026 take 1 capsule by mouth once daily venlafaxine XR (Effexor XR) 37.5 MG 24 hr capsule Indications: Anxiety, generalized Take 1 capsule (37.5 mg) by mouth Daily 30 capsule 3 04/28/2025 04/28/2026 Active Completed/Discontinued Medications Medication Drug Class(es) Dates Sig [...] daily. 1 kit 09/29/2024 09/29/2025 Active calcium carbonate 1250 mg oral tablet (20 sources) Start: 12-21-2024 End: 03-09-2025 take 1 tablet by mouth once daily Oyster Shell Calcium 500 MG tablet Indications: Second trimester Take 1 tablet by mouth once daily 90 tablet 12/21/2024 03/09/2025 Discontinued Start: 09-07-2024 take 1 tablet by yolanda once daily Oyster Shell Calcium 500 MG tablet Indications: Second trimester Take 1 tablet by mouth once daily 90 tablet 09/07/2024 Active calcium chloride 0.0014 meq/ml / potassium [...] syringe ferrous sulfate 325 mg oral tablet (20 sources) Start: 11-03-2024 End: 11-05-2025 take 1 tablet by mouth at mealtime ferrous sulfate 325 (65 Fe) MG tablet Indications: Antepartum anemia Take 1 tablet (325 mg) by mouth in the morning. Take with meals. 30 tablet 11 11/05/2024 03/09/2025 Discontinued isopropyl alcohol 0.7 ml/ml medicated pad (8 [...] End: 07-04-2022 ketorolac (TORADOL) injection 15 mg levonorgestrel 0.466513 mg/hr intrauterine system (2 sources) Progestin, Progestin-containin g Intrauterine Device Start: 03-31-2025 End: 03-31-2025 Levonorgestrel intrauterine device 52 mg Start: 03-31-2025 End: 03-31-2025 52 mg, Intrauterine, Once NC N Procedure, Starting on Sat03/31/25 at 1430, For 1 dose metoclopramide 10 mg oral tablet (12 sources) [...] 07-03-2022 midazolam PF (VERSED) injection 2 mg omeprazole 20 mg delayed release oral capsule (20 sources) Proton Pump Inhibitor Start: 06-02-2025 End: 07-01-2025 take 1 capsule by mouth before mealtime omeprazole (PriLOSEC) [address] capsule Indications: Gastroesophageal reflux in ([facility]) Take 1 capsule (20 mg) by mouth in the morning. Take before meals. Do not crush or chew. 30 capsule 1 06/02/2025 07/01/2025 Discontinued (Therapy completed) Start: 01-05-2025 End: 03-09-2025 take 1 capsule by mouth before mealtime omeprazole (PriLOSEC) [address] capsule Indications: Gastroesophageal reflux in TAKE 1 CAPSULE BY MOUTH IN THE MORNING. TAKE BEFORE MEALS. DO NOT CRUSH OR CHEW. 30 capsule 01/05/2025 Active Start: 07-07-2024 End: 10-07-2024 take 1 capsule by mouth before mealtime omeprazole (PriLOSEC) [address] capsule Indications: Gastroesophageal Reflux Disease , Heartburn Take 1 capsule (20 mg) by mouth in the morning. Take before meals. Do not crush or chew.. 30 capsule 3 09/07/2024 Active polysaccharide iron complex 391 mg oral capsule (20 sources) Start: 06-08-2024 End: 06-08-2025 take 1 capsule by mouth once daily iron polysaccharides (ProFe) 391.3 (180 Fe) MG capsule Indications: Antepartum anemia Take 1 capsule (391.3 mg) by mouth Daily 90 capsule 3 06/08/2024 03/09/2025 Discontinued Vit-Fe Fumarate-FA ( Vitamins) 28-0.8 MG tablet (20 sources) Start: 08-11-2024 End: 03-09-2025 take 1 tablet by mouth once daily Vit-Fe Fumarate-FA ( Vitamins) 28-0.8 MG tablet Indications: Second trimester Take 1 tablet by mouth Daily 30 tablet 6 08/11/2024 03/09/2025 Discontinued Start: 08-11-2024 End: 08-11-2025 take 1 tablet [...] Daily 90 tablet 3 05/05/2024 08/03/2024 Active triamcinolone acetonide 0.25 mg/ml topical cream (1 [...] unspecified; Translations: [Cholecystitis, unspecified] Onset: 4 Episodic Contraceptive and procreative management (7 sources) Sterilization requested; Translations: [Encounter for sterilization] Onset: 5 03-09-2025 Episodic Diabetes mellitus without complication (4 sources) Abnormal glucose tolerance test; Translations: [Other abnormal glucose] 09-30-2024 Episodic Diabetes or abnormal glucose tolerance complicating ; childbirth; or the puerperium (4 sources) Gestational diabetes mellitus; Translations: [Gestational diabetes mellitus in , unspecified control] 09-30-2024 Episodic Esophageal disorders (3 sources) Gastroesophageal reflux disease; Translations: [Gastro-esophageal reflux disease without esophagitis] Onset: Chronic Essential hypertension (2 sources) Essential hypertension; [...] [Irregular menstruation, unspecified] Onset: 4 05-05-2024 Chronic Miscellaneous mental health disorders (2 sources) depression; Translations: [ depression] 07-01-2025 Episodic Mood disorders (2 sources) Disturbance in mood; Translations: [Emotional lability] 07-01-2025 Episodic Nonspecific chest pain (2 sources) Chest pain, unspecified; Translations: [Chest pain] Onset: 4 Episodic Nutritional deficiencies (1 source) Vitamin D deficiency, unspecified; Translations: [Vitamin D deficiency, unspecified] Onset: 4 Chronic Other complications of (4 sources) Excessive growth affecting management of mother; Translations: [Maternal care for excessive growth, unspecified trimester, not applicable or unspecified] 12-02-2024 Episodic Other complications of (2 sources) Other mental disorders complicating the puerperium; Translations: [Mental disorders of mother, condition or complication] 07-01-2025 Episodic Other endocrine disorders (1 source) Polycystic [...] Test Name Value Interpretation Reference Range Facility HCG ( test) Ql (U)o n 03-31-2025 Interpretation and review of laboratory results Normal [facility] Preg Test, Ur Negative Negative [facility] IUD Insertionon 03-31-2025 Tamy Collazo LPN 03/31/2025 3:54 PM IUD Insertion Performed by: Jkae Miramontes DO Authorized by: Jake Miramontes DO Procedure: IUD insertion Consent obtained by patient, parent, or legal power of city attorney - including discussion of procedure risks and benefits, patient questions answered, and patient education provided: yes risk: reasonably certain the patient is not Date/Time of Insertion: 03/31/2025 3:04 PM Immediately prior to procedure a time out was called: no Pelvic exam performed: no Speculum placed in vagina: yes Cervix cleaned and prepped: yes Tenaculum/Allis/Ring Forceps applied to cervix: yes Anesthesia used: no IUD inserted without complications: yes OSM: 52 mg Levonorgestrel 20 MCG/DAY Patient tolerated procedure well: yes Inserted with ultrasound guidance: no Intended removal date: 5 years Insertion comments: IUD Insertion: Patient presents today for an IUD Insertion. Patient is having a Mirena placed and written consent was obtained. Patient was placed in the dorsal lithotomy position with feet in stirrups. A sterile speculum ws placed into the vagina and the cervix was visualized. Cervix was cleansed with betadine and the anterior lip was grasped with ring forceps. Uterus was then gently sounded. New IUD device was gently advanced through the endocervix, toward te uterine fundus. The IUD was then deployed as device was gently removed from the uterus. The IUD strings were cut to the length from external os. All instruments were removed from the vagina. Post-procedure instructions given. All of patients questions were answered and she expressed understanding. Advised to call interim with any questions or concerns. Follow Up: Patient is to return to the office in 4 weeks for a string check. [facility] HCG ( test) Ql (U)o n 03-09-2025 Interpretation and review of laboratory results Normal [facility] Preg Test, Ur Negative Negative [facility] Urinalysis macro (dipstick) panel (U)on 03-09-2025 Bilirubin, UA Positive Negative - 4(70) +++ mg/dL [facility] Blood, UA Negative Negative - 50 Nathanael/mcL [facility] Clarity, UA Clear [facility] Color, UA Ammy [facility] Glucose, UA Negative Negative - 2000(110) ++++ mg/dL [facility] Interpretation and review of laboratory results Abnormal [facility] Ketones, UA Negative Negative - 160(16) ++++ mg/dL [facility] Leukocytes, UA Negative Negative - 500+++ Annie/mcL [facility] Nitrite, UA Negative Negative - Positive [facility] pH, UA 6 5 - 9 [facility] Protein, UA Trace Negative - 2000(20) ++++ mg/dL [facility] Spec Grav, UA 1.025 1 - 1.03 [facility] Urobilinogen, UA 1.0 0.2 - 12 mg/dL [facility] ALL CBC WITH AUTO DIFFon BASOPHILS ABSOLUTE AUTO 0 [facility] Basophils/100 WBC (Bld) 0.2 % 0.2 - 2.0 % [facility] Eosinophils/100 WBC (Bld) 1.1 % 0.9 - 7.0 % [facility] Erythrocyte distribution width (RBC) [Ratio] 11.7 % 11.0 - 15.0 % [facility] Hematocrit (Bld) [Volume fraction] 32.6 % Low 36.0 - 48.0 % [facility] Hemoglobin (Bld) [Mass/Vol] 11.3 g/dL Low 12.0 - 16.0 g/dL [facility] IMMATURE GRANULOCYTES ABS AUTO 0.07 High [facility] Immature granulocytes/100 WBC (Bld) 0.5 % 0.0 - 0.5 % [facility] Interpretation and review of laboratory results Abnormal [facility] LYMPHOCYTES ABSOLUTE AUTO 2 [facility] Lymphocytes/100 WBC (Bld) 13.3 % Low 20.5 - 60.0 % [facility] MCH (RBC) [Entitic mass] 32.6 pg 26.7 - 34.0 pg [facility] MCHC (RBC) [Mass/Vol] 34.7 g/dL 29.9 - 35.2 g/dL [facility] MCV (RBC) [Entitic vol] 93.9 fL 81.0 - 99.0 fL [facility] MONOCYTES ABSOLUTE AUTO 1.2 High [facility] Monocytes/100 WBC (Bld) 7.7 % 1.7 - 12.0 % [facility] NEUTROPHILS ABSOLUTE AUTO 11.7 High [facility] Neutrophils/100 WBC (Bld) 77.2 % High 43.0 - 75.0 % [facility] Platelet mean volume (Bld) [Entitic vol] 9.1 fL Low 9.5 - 13.5 fL [facility] EO # 0.2 [facility] PLT 152 [facility] RBC 3.47 Low [facility] WBC 15.1 High [facility] WITH PLATELET NO DI FFERENTIALon 12-25-2024 Erythrocyte distribution width (RBC) [Ratio] 11.6 % 11.0 - 15.0 % [facility] Hematocrit (Bld) [Volume fraction] 36.3 % 36.0 - 48.0 % [facility] Hemoglobin (Bld) [Mass/Vol] 12.6 g/dL 12.0 - 16.0 g/dL [facility] Interpretation and review of laboratory results Abnormal [facility] MCH (RBC) [Entitic mass] 32.3 pg 26.7 - 34.0 pg [facility] MCHC (RBC) [Mass/Vol] 34.7 g/dL 29.9 - 35.2 g/dL [facility] MCV (RBC) [Entitic vol] 93.1 fL 81.0 - 99.0 fL [facility] Platelet mean volume (Bld) [Entitic vol] 9.2 fL Low 9.5 - 13.5 fL [facility] PLT 201 [facility] RBC 3.9 Low [facility] WBC 10.1 [facility] US OB BPP W NON-STRESS on 12-23-2024 [place] [address] Ultrasound Report Signed Patient: PHILLIP NORIEGA MR#: [id number] : 1995 Acct:[id number] Age/Sex: 29 / F ADM Date: 12/23/24 Loc: US Attending Dr: Jake Miramontes D.O. Ordering Physician: Jake Miramontes D.O. Date of Service: 12/23/24 Procedure(s): US OB BPP w non-stress Accession Number(s): [id number] cc: Jake Miramontes D.O.; Physician,Non-Staff [facility] [place] [address] Patient Name: PHILLIP NORIEGA MRN: [facility]:[id number] date: 1995 Sex: F Assigned Patient Location: [facility] Current Patient Location: Accession/Order Number: [id number] Exam Date: 12/23/2024 19:02 Report Date: 12/23/2024 19:06 At the request of: JAKE MIRAMONTES DO Procedure: US OB BPP w non-stress Exam: Biophysical profile. Reason for exam: Excessive growth. COMPARISON: BPP 12/17/2024. TECHNIQUE: Transabdominal imaging of the gravid uterus was obtained. FINDINGS: The clerk secretary reports a BPP of 8 out of 8. heart rate 132 bpm. JOHN is normal at 10.3 cm. US/US OB BPP w non-stress IMPRESSION: BPP 8 out of 8. Impression dictated by: Robert Ku Jr., D.O.12/23/2024 7:06 PM Dictation Location: [place] [address] Electronically authenticated by: [id number] Y Date: 12/23/2024 19:06 Dictated By: Robert Ku M.D. Signed By: 12/23/241908 DD/ 05 TD/TT: Job Lithographer: [facility] Radiology, Radiologist, MD - 12/23/2024 [place] [address] Ultrasound Report Signed Patient: PHILLIP NORIEGA MR#: [id number] : 1995 Acct:[id number] Age/Sex: 29 / F ADM Date: 12/23/24 Loc: US Attending Dr: Jake Miramontes D.O. Ordering Physician: Jake Miramontes D.O. Date of Service: 12/23/24 Procedure(s): US OB BPP w non-stress Accession Number(s): [id number] cc: Jake Miramontes D.O.; Physician,Non-Staff [facility] [place] [id number] Patient Name: PHILLIP NORIEGA MRN: [facility]:[id number] date: 1995 Sex: F Assigned Patient Location: [facility] Current Patient Location: Accession/Order Number: [id number] Exam Date: 12/23/2024 19:02 Report Date: 12/23/2024 19:06 At the request of: JAKE MIRAMONTES DO Procedure: US OB BPP w non-stress Exam: Biophysical profile. Reason for exam: Excessive growth. COMPARISON: BPP 12/17/2024. TECHNIQUE: Transabdominal imaging of the gravid uterus was obtained. FINDINGS: The clerk secretary reports a BPP of 8 out of 8. heart rate 132 bpm. JOHN is normal at 10.3 cm. US/US OB BPP w non-stress IMPRESSION: BPP 8 out of 8. Impression dictated by: Robert Ku Jr., D.O.12/23/2024 7:06 PM Dictation Location: [employer] Electronically authenticated by: [id number] Y Date: 12/23/2024 19:06 Dictated By: Robert Ku M.D. Signed By: 12/23/241908 DD/ 05 TD/TT: Job Lithographer: [facility] Radiology Study observation (narrative) [facility] US OB BPP W NON-STRESS Ordered By: Radiologist Radiology on 12-23-2024 [facility] Work Phone: US OB GROWTHon 12-23-2024 [place] [address] Ultrasound Report Signed Patient: PHILLIP NORIEGA MR#: [id number] : 1995 Acct:[id number] Age/Sex: 29 / F ADM Date: 12/23/24 Loc: US Attending Dr: Jake Miramontes D.O. Ordering Physician: Jake Miramontes D.O. Date of Service: 12/23/24 Procedure(s): US OB growth Accession Number(s): [id number] cc: Jake Miramontes D.O.; Physician,Non-Staff MNataliia The [address] [address] Patient Name: PHILLIP NORIEGA MRN: [facility]:[id number] date: 1995 Sex: F Assigned Patient Location: [facility] Current Patient Location: US Accession/Order Number: [id number] Exam Date: 12/23/2024 19:07 Report Date: 12/23/2024 [...] Ku Jr., D.O.12/23/2024 7:09 PM Dictation Location: [place] [address] Electronically authenticated by: [id number] Y Date: 12/23/2024 19:09 Dictated By: Robert Ku M.D. Signed By: 12/23/241911 DD/ 08 TD/TT: Job Lithographer: [facility] Radiology, Radiologist, - 12/23/2024 [place] [address] Ultrasound Report Signed Patient: PHILLIP NORIEGA MR#: [id number] : 1995 Acct:[id number] Age/Sex: 29 / F ADM Date: 12/23/24 Loc: US Attending Dr: Jake Miramontes D.O. Ordering Physician: Jake Miramontes D.O. Date of Service: 12/23/24 Procedure(s): US OB growth Accession Number(s): [id number] cc: Jake Miramontes D.O.; Physician,Non-Staff [facility] [place] [id number] Patient Name: PHILLIP NORIEGA MRN: [id number] date: 1995 Sex: F Assigned Patient Location: [facility] Current Patient Location: Accession/Order Number: [id number] Exam Date: 12/23/2024 19:07 Report Date: 12/23/2024 [...] Ku Jr., D.O.12/23/2024 7:09 PM Dictation Location[facility] Electronically authenticated by: [id number] Y Date: 12/23/2024 19:09 Dictated By: Robert Ku M.D. Signed By: 12/23/241911 DD/ 08 TD/TT: Job Lithographer: [facility] Radiology Study observation (narrative) [facility] US OB GROWTHOrdered By: Annetta germanoghue Radiology on 12-23-2024 [facility] Work Phone: ALL MISCELLANEOUS TESTon MISCELLANEOUS TEST COMMENT . [facility] Comment on above: Test Ordered: [id number] Strep Gp B Culture+Rflx Strep Gp B Culture+Rflx Negative CB Reference Range: Negative Centers for Disease Control and Prevention (CDC) and [place] [employer]stetricians [employer] Gynecologists (ACOG) guidelines [...] resistance to clindamycin is noted. Performed at: [address] [id number] Posting Specialist: Aung Adams PhD, Phone: [phone] GROUP B STREP [id number] CULTURE, GROUP B STREP WITH SUSCEPTIBILITY [facility] OB BPP W NON-STRESS on 12-17-2024 [place] [address] Ultrasound Report Signed Patient: PHILLIP NORIEGA MR#: [id number] : 1995 Acct:[id number] Age/Sex: 29 / F ADM Date: 12/16/24 Loc: US Attending Dr: Jake Miramontes D.O. Ordering Physician: Jake Miramontes D.O. Date of Service: 12/16/24 Procedure(s): US OB BPP w non-stress Accession Number(s): [id number] cc: Jake Miramontes D.O.; Physician,Non-Staff M.Charlee [place] [id number] Patient Name: PHILLIP NORIEGA MRN: [id number] date: 1995 Sex: F Assigned Patient Location: [facility] Current Patient Location: Accession/Order Number: [id number] Exam Date: 12/17/2024 10:08 Report Date: 12/17/2024 10:11 At the request of: JAKE MIRAMONTES DO Procedure: US OB BPP w non-stress BIOPHYSICAL PROFILE: CLINICAL INFORMATION: Excessive growth O36.60x0 COMPARISON: 12/10/2024 There is a fetus in cephalic presentation. Reported gestational age is 36 weeks 2 days. The heart rate [id number] beats per minute. FINDINGS: TONE: 1 or [...] Tamy Jiménez M.D.12/17/2024 10:11 AM Dictation Location[facility] Electronically authenticated by: [id number] Y Date: 12/17/2024 10:11 Dictated By: Tamy Jiménez M.D. Signed By: 12/17/24 1237 DD/ 1011 TD/TT: Job Lithographer: [facility] Radiology, Radiologist, - 12/17/2024 [place] [address] Ultrasound Report Signed Patient: PHILLIP NORIEGA MR#: [id number] : 1995 Acct:[id number] Age/Sex: 29 / F ADM Date: 12/16/24 Loc: US Attending Dr: Jake Miramontes D.O. Ordering Physician: Jake Miramontes D.O. Date of Service: 12/16/24 Procedure(s): US OB BPP w non-stress Accession Number(s): [id number] cc: Jake Miramontes D.O.; Physician,Non-Staff Patti [facility] [place] [id number] Patient Name: PHILLIP NORIEGA MRN: [facility]:[id number] date: 1995 Sex: F Assigned Patient Location: [facility] Current Patient Location: Accession/Order Number: [id number] Exam Date: 12/17/2024 10:08 Report Date: 12/17/2024 10:11 At the request of: JAKE MIRAMONTES DO Procedure: US OB BPP w non-stress BIOPHYSICAL PROFILE: CLINICAL INFORMATION: Excessive growth O36.60x0 COMPARISON: 12/10/2024 There is a fetus in cephalic presentation. Reported gestational age is 36 weeks 2 days. The heart rate [id number] beats per minute. FINDINGS: TONE: 1 or [...] This is within normal range Total score: 06/04 US/US OB BPP w non-stress IMPRESSION: NORMAL BIOPHYSICAL PROFILE. Impression dictated by: Tamy Jiménez M.D.12/17/2024 10:11 AM Dictation Location[facility] Electronically authenticated by: [id number] Y Date: 12/17/2024 10:11 Dictated By: Tamy Jiménez M.D. Signed By: 12/17/24 1237 DD/ 1011 TD/TT: Job Lithographer: [facility] Radiology Study observation (narrative) [facility] OB BPP W NON-STRESS Ordered By: Radiologist Radiology on 12-17-2024 [facility] Work Phone: Urinalysis macro (dipstick) panel (U)on 12-16-2024 Bilirubin, UA Negative Negative - 4(70) +++ mg/dL [facility] Blood, UA Negative Negative - 50 Nathanael/mcL [facility] Clarity, UA Clear [facility] Color, UA Ammy [facility] Glucose, UA Negative Negative - 1999(110) ++++ mg/dL [facility] Interpretation and review of laboratory results Abnormal [facility] Ketones, UA Negative Negative - 160(16) ++++ mg/dL [facility] Leukocytes, UA Positive Negative - 500+++ Annie/mcL [facility] Comment on above: small Nitrite, UA Negative Negative - Positive [facility] pH, UA 5.5 5 - 9 [facility] Protein, UA Trace Negative - 1999(20) ++++ mg/dL [facility] Spec Grav, UA 1.025 1 - 1.03 [facility] Urobilinogen, UA 0.2 0.2 - 12 mg/dL [facility] US OB BPP W NON-STRESS on 12-10-2024 [place] [address] Ultrasound Report Signed Patient: PHILLIP NORIEGA MR#: [id number] : 1995 Acct:[id number] Age/Sex: 29 / F ADM Date: 12/10/24 Loc: [facility] 250-[address]: Jake Miramontes D.O. Ordering Physician: Jake Miramontes D.O. Date of Service: 12/10/24 Procedure(s): US OB BPP w non-stress Accession Number(s): [id number] cc: Jake Miramontes D.O.; Physician,Non-Staff M.Charlee [place] [address] Patient Name: PHILLIP NORIEGA MRN: [id number]:[id number] date: 1995 Sex: F Assigned Patient Location: [facility] Current Patient Location: [facility] Accession/Order Number: [id number] Exam Date: 12/10/2024 10:46 Report Date: 12/10/2024 [...] Signed By: 12/10/24 1128 DD/ 24 TD/TT: Job Lithographer: [facility] Radiology, Radiologist, MD - 12/10/2024 [place] [address] Ultrasound Report Signed Patient: PHILLIP NORIEGA MR#: [id number] : 1995 Acct:[id number] Age/Sex: 29 / F ADM Date: 12/10/24 Loc: [facility] 250-[address]: Jake Miramontes D.O. Ordering Physician: Jake Miramontes D.O. Date of Service: 12/10/24 Procedure(s): US OB BPP w non-stress Accession Number(s): [id number] cc: Jake Miramontes D.O.; Physician,Non-Staff [place] [place] [id number] Patient Name: PHILLIP NORIEGA MRN: [facility]:[id number] date: 1995 Sex: F Assigned Patient Location: [facility] Current Patient Location: [facility] Accession/Order Number: [id number] Exam Date: 12/10/2024 10:46 Report Date: 12/10/2024 [...] Signed By: 12/10/24 1128 DD/ 24 TD/TT: Job Lithographer: [facility] Radiology Study observation (narrative) [facility] US OB BPP W NON-STRESS Ordered By: Radiologist Radiology on 12-10-2024 [facility] Work Phone: Urinalysis macro (dipstick) panel (U)on 12-02-2024 Bilirubin, UA Negative Negative - 4(70) +++ mg/dL [facility] Blood, UA Negative Negative - 50 Nathanael/mcL [facility] Clarity, UA Clear [facility] Color, UA Yellow [facility] Glucose, UA Negative Negative - 1999(110) ++++ mg/dL [facility] Interpretation and review of laboratory results Abnormal [facility] Ketones, UA Negative Negative - 160(16) ++++ mg/dL [facility] Leukocytes, UA Trace Negative - 500+++ Annie/mcL [facility] Nitrite, UA Negative Negative - Positive [facility] pH, UA 7 5 - 9 [facility] Protein, UA Trace Negative - 1999(20) ++++ mg/dL [facility] Spec Grav, UA 1.025 1 - 1.03 [facility] Urobilinogen, UA 1.0 0.2 - 12 mg/dL [facility] Urinalysis macro (dipstick) panel (U)on 11-18-2024 Bilirubin, UA Negative Negative - 4(70) +++ mg/dL [facility] Blood, UA Negative Negative - 50 Nathanael/mcL [facility] Clarity, UA Clear [facility] Color, UA Yellow [facility] Glucose, UA Negative Negative - 1999(110) ++++ mg/dL [facility] Interpretation and review of laboratory results Abnormal [facility] Ketones, UA Negative Negative - 160(16) ++++ mg/dL [facility] Leukocytes, UA Trace Negative - 500+++ Annie/mcL [facility] Nitrite, UA Negative Negative - Positive [facility] pH, UA 6.5 5 - 9 [facility] Protein, UA Negative Negative - 1999(20) ++++ mg/dL [facility] Spec Grav, UA 1.025 1 - 1.03 [facility] Urobilinogen, UA 0.2 0.2 - 12 mg/dL [facility] CBC AND AUTO DIFFon 11-11-19 25 ABSOLUTE BASOPHIL 0.0 X10E9/L Normal 0.0-0.[address] [facility] Comment on above: Performed By: #### 3 8476-8 #### [facility] ([id number]) [address] [place] [address] 45926 #### 2839-9 #### [facility] ([id number]) [address] [place] [address] ABSOLUTE NEUTROPHIL 7.2 X10E9/L High 1.5-6.6 [facility] Comment on above: Performed By: #### 3 8476-8 #### [facility] ([id number]) [address] [place] [address] 21579 #### 2839-9 #### [facility] ([id number]) [address] [place] [address] Basophils/100 WBC (Bld) 0.3 % Normal [facility] Comment on above: Performed By: #### 3 8476-8 #### [facility] ([id number]) [address] [place] [address] 77374 #### 2839-9 #### [facility] ([id number]) [address], [address] [place] [address] Eosinophils (Bld) [#/Vol] 0.3 10*3/uL Normal 0.0-0.4 [facility] Comment on above: Performed By: #### 3 8476-8 #### [facility] ([id number]) [address] [place] [address] 33872 #### 2839-9 #### [facility] ([id number]) [address] [place] [address] Eosinophils/100 WBC (Bld) 2.9 % Normal [facility] Comment on above: Performed By: #### 3 8476-8 #### [facility] ([id number]) [address] [place] [address] 45343 #### 2839-9 #### [facility] ([id number]) [address] [place] [address] Erythrocyte distribution width (RBC) [Ratio] 12.5 % Normal 11.5-15.0 [facility] Comment on above: Performed By: #### 3 8476-8 #### [facility] ([id number]) [address] [place] [address] 77202 #### 2839-9 #### [facility] ([id number]) [address] [facility], [address] [place] [address] Hematocrit (Bld) [Volume fraction] 36.8 % Normal 35-47 [facility] Comment on above: Performed By: #### 3 8476-8 #### [facility] ([id number]) [address] [place] [address] 69914 #### 2839-9 #### [facility] ([id number]) [address] [place] [address] Hemoglobin (Bld) [Mass/Vol] 12.7 g/dL Normal 11.7-15.5 [facility] Comment on above: Performed By: #### 3 8476-8 #### [facility] ([id number]) [address] [place] [address] 77070 #### 2839-9 #### [facility] ([id number]) [address], [address] [place] [address] Lymphocytes (Bld) [#/Vol] 1.9 10*3/uL Normal 1.0-3.5 [facility] Comment on above: Performed By: #### 3 8476-8 #### [facility] ([id number]) [address] [place] [address] 44892 #### 2839-9 #### [facility] ([id number]) [address] [place] [address] Lymphocytes/100 WBC (Bld) 18.7 % Normal [facility] Comment on above: Performed By: #### 3 8476-8 #### [facility] ([id number]) [address] [place] [address] 30357 #### 2839-9 #### [facility] ([id number]) [address] [place] [address] MCH (RBC) [Entitic mass] 32.5 pg Normal 27-34 [facility] Comment on above: Performed By: #### 3 8476-8 #### [facility] ([id number]) [address] [place] [address] 30353 #### 2839-9 #### [facility] ([id number]) [address] [place] [address] MCHC (RBC) [Mass/Vol] 34.5 g/dL Normal 32-36 [facility] Comment on above: Performed By: #### 3 8476-8 #### [facility] ([id number]) [address] [place] [address] 24563 #### 2839-9 #### [facility] ([id number]) [address] [place] [address] MCV (RBC) [Entitic vol] 94 fL Normal 80-100 [facility] Comment on above: Performed By: #### 3 8476-8 #### [facility] ([id number]) [address] [place] [address] 09918 #### 2839-9 #### [facility] ([id number]) [address] [place] [address] Monocytes (Bld) [#/Vol] 0.6 10*3/uL Normal 0-0.9 [facility] Comment on above: Performed By: #### 3 8476-8 #### [facility] ([id number]) [address] [place] [address] 52496 #### 2839-9 #### [facility] ([id number]) [address] [place] [address] Monocytes/100 WBC (Bld) 6.4 % Normal [facility] Comment on above: Performed By: #### 3 8476-8 #### [facility] ([id number]) [address] [place] [address] 06272 #### 2839-9 #### [facility] ([id number]) [address] [place] [address] Neutrophils/100 WBC (Bld) 71.7 % Normal [facility] Comment on above: Performed By: #### 3 8476-8 #### [facility] ([id number]) [address] [place] [address] 00912 #### 2839-9 #### [facility] ([id number]) [address] [place] [address] Platelet mean volume (Bld) [Entitic vol] 7.3 fL Normal 7-12 [facility] Comment on above: Performed By: #### 3 8476-8 #### [facility] ([id number]) [address] [place] [address] 94865 #### 2839-9 #### [facility] ([id number]) [address] [place] [address] Platelets (Bld) [#/Vol] 218 10*3/uL Normal 150-450 [facility] Comment on above: Performed By: #### 3 8476-8 #### [facility] ([id number]) [address] [place] [address] 56046 #### 2839-9 #### [facility] ([id number]) [address] [facility], [address] [place] [address] RBC COUNT 3.89 X10E12/L Normal 3.80-5.20 [facility] Comment on above: Performed By: #### 3 8476-8 #### [facility] ([id number]) [address] [place] [address] 62152 #### 2839-9 #### [facility] ([id number]) [address] [facility], [address] [place] [address] WBC (Bld) [#/Vol] 10.1 10*3/uL Normal 4.0-11.0 [facility] Comment on above: Performed By: #### 3 8476-8 #### [facility] ([id number]) [address] [place] [address] 99899 #### 2839-9 #### [facility] ([id number]) [address] [facility], [address] [place] [address] CBC W Auto Differential pane l (Bld)on 11-11-2024 ABSOLUTE BASOPHIL 0 [facility] Comment on above: PERFORMED AT [address] SUITE [facility] [address] Basophils/100 WBC (Bld) 0.3 % [facility] Eosinophils (Bld) [#/Vol] 0.3 10*3/uL [facility] Eosinophils/100 WBC (Bld) 2.9 % [facility] Erythrocyte distribution width (RBC) [Ratio] 12.5 % 11.5 - 15.0 % [facility] Hematocrit (Bld) [Volume fraction] 36.8 % 35 - 47 % [facility] Hemoglobin (Bld) [Mass/Vol] 12.7 g/dL 11.7 - 15.5 g/dL [facility] Interpretation and review of laboratory results Abnormal [facility] Lymphocytes (Bld) [#/Vol] 1.9 10*3/uL [facility] Lymphocytes/100 WBC (Bld) 18.7 % [facility] MCH (RBC) [Entitic mass] 32.5 pg 27 - 34 pg [facility] MCHC (RBC) [Mass/Vol] 34.5 g/dL 32 - 36 g/dL [facility] MCV (RBC) [Entitic vol] 94 fL 80 - 100 fL [facility] Monocytes (Bld) [#/Vol] 0.6 10*3/uL [facility] Monocytes/100 WBC (Bld) 6.4 % [facility] Neutrophils (Bld) [#/Vol] 7.2 10*3/uL High [facility] Neutrophils/100 WBC (Bld) 71.7 % [facility] Platelet mean volume (Bld) [Entitic vol] 7.3 fL 7 - 12 fL [facility] Platelets (Bld) [#/Vol] 218 10*3/uL [facility] RBC (Bld) [#/Vol] 3.89 10*6/uL [facility] WBC corrected for nucl RBC Auto (Bld) [#/Vol] 10.1 [facility] Urinalysis macro (dipstick) panel (U)on 11-04-2024 Bilirubin, UA Negative Negative - 4(70) +++ mg/dL [facility] Blood, UA Negative Negative - 50 Nathanael/mcL [facility] Clarity, UA Clear [facility] Color, UA Yellow [facility] Glucose, UA Negative Negative - 2000(110) ++++ mg/dL [facility] Interpretation and review of laboratory results Abnormal [facility] Ketones, UA Negative Negative - 160(16) ++++ mg/dL [facility] Leukocytes, UA Trace Negative - 500+++ Annie/mcL [facility] Nitrite, UA Negative Negative - Positive [facility] pH, UA 6 5 - 9 [facility] Protein, UA Positive Negative - 2000(20) ++++ mg/dL [facility] Comment on above: trace Spec Grav, UA 1.03 1 - 1.03 [facility] Urobilinogen, UA 0.2 0.2 - 12 mg/dL [facility] Urinalysis macro (dipstick) panel (U)on 10-22-2024 Bilirubin, UA Negative Negative - 4(70) +++ mg/dL [facility] Blood, UA Negative Negative - 50 Nathanael/mcL [facility] Clarity, UA Clear [facility] Color, UA Yellow [facility] Glucose, UA Negative Negative - 1999(110) ++++ mg/dL [facility] Interpretation and review of laboratory results Abnormal [facility] Ketones, UA Negative Negative - 160(16) ++++ mg/dL [facility] Leukocytes, UA Positive Negative - 500+++ Annie/mcL [facility] Comment on above: small Nitrite, UA Negative Negative - Positive [facility] pH, UA 6.5 5 - 9 [facility] Protein, UA Negative Negative - 1999(20) ++++ mg/dL [facility] Spec Grav, UA 1.025 1 - 1.03 [facility] Urobilinogen, UA 1.0 0.2 - 12 mg/dL [facility] Urinalysis macro (dipstick) panel (U)on 09-29-2024 Bilirubin, UA Negative Negative - 4(70) +++ mg/dL [facility] Blood, UA Negative Negative - 50 Nathanael/mcL [facility] Clarity, UA Clear [facility] Color, UA Yellow [facility] Glucose, UA Negative Negative - 1999(110) ++++ mg/dL [facility] Interpretation and review of laboratory results Normal [facility] Ketones, UA Negative Negative - 160(16) ++++ mg/dL [facility] Leukocytes, UA Negative Negative - 500+++ Annie/mcL [facility] Nitrite, UA Negative Negative - Positive [facility] pH, UA 7 5 - 9 [facility] Protein, UA Negative Negative - 1999(20) ++++ mg/dL [facility] Spec Grav, UA 1.025 1 - 1.03 [facility] Urobilinogen, UA 1.0 0.2 - 12 mg/dL [facility] Urinalysis macro (dipstick) panel (U)on 09-01-2024 Bilirubin, UA Negative Negative - 4(70) +++ mg/dL [facility] Blood, UA Negative Negative - 50 Nathanael/mcL [facility] Clarity, UA Clear [facility] Color, UA Yellow [facility] Glucose, UA Negative Negative - 1999(110) ++++ mg/dL [facility] Interpretation and review of laboratory results Abnormal [facility] Ketones, UA Negative Negative - 160(16) ++++ mg/dL [facility] Leukocytes, UA Trace Negative - 500+++ Annie/mcL [facility] Nitrite, UA Negative Negative - Positive [facility] pH, UA 6 5 - 9 [facility] Protein, UA Negative Negative - 2000(20) ++++ mg/dL [facility] Spec Grav, UA 1.03 1 - 1.03 [facility] Urobilinogen, UA 0.2 0.2 - 12 mg/dL [facility] CBC AND AUTO DIFFon 1030-20 24 ABSOLUTE BASOPHIL 0.0 X10E9/L Normal 0.0-0.2 [facility] Comment on above: Performed By: #### 3 8476-8 #### [facility] ([id number]) [address] [place] [address] 66590 #### 2839-9 #### [facility] ([id number]) [address] [facility], [address] [place] [address] ABSOLUTE NEUTROPHIL 5.8 X10E9/L Normal 1.5-6.6 [facility] Comment on above: Performed By: #### 3 8476-8 #### [facility] ([id number]) [address] [place] [address] 10075 #### 2839-9 #### [facility] ([id number]) [address] [facility], [address] [place] [address] Basophils/100 WBC (Bld) 0.2 % Normal [facility] Comment on above: Performed By: #### 3 8476-8 #### [facility] ([id number]) [address] [place] [address] 43539 #### 2839-9 #### [facility] ([id number]) [address] [facility], [address] [place] [address] Eosinophils (Bld) [#/Vol] 0.2 10*3/uL Normal 0.0-0.4 [facility] Comment on above: Performed By: #### 3 8476-8 #### [facility] ([id number]) [address] [place] [address] 62335 #### 2839-9 #### [facility] ([id number]) [address] [place] [address] Eosinophils/100 WBC (Bld) 2.9 % Normal [facility] Comment on above: Performed By: #### 3 8476-8 #### [facility] ([id number]) [address] [place] [address] 19659 #### 2839-9 #### [facility] ([id number]) [address] [place] [address] Erythrocyte distribution width (RBC) [Ratio] 13.0 % Normal 11.5-15.0 [facility] Comment on above: Performed By: #### 3 8476-8 #### [facility] ([id number]) [address] [place] [address] 47265 #### 2839-9 #### [facility] ([id number]) [address] [place] [address] Hematocrit (Bld) [Volume fraction] 31.5 % Low 35-47 [facility] Comment on above: Performed By: #### 3 8476-8 #### [facility] ([id number]) [address] [place] [address] 23173 #### 2839-9 #### [facility] ([id number]) [address] [place] [address] Hemoglobin (Bld) [Mass/Vol] 10.8 g/dL Low 11.7-15.5 [facility] Comment on above: Performed By: #### 3 8476-8 #### [facility] ([id number]) [address] [place] [address] 95657 #### 2839-9 #### [facility] ([id number]) [address] [place] [address] Lymphocytes (Bld) [#/Vol] 1.3 10*3/uL Normal 1.0-3.5 [facility] Comment on above: Performed By: #### 3 8476-8 #### [facility] ([id number]) [address] [place] [address] 17884 #### 2839-9 #### [facility] ([id number]) [address] [place] [address] Lymphocytes/100 WBC (Bld) 16.5 % Normal [facility] Comment on above: Performed By: #### 3 8476-8 #### [facility] ([id number]) [address] [place] [address] 91453 #### 2839-9 #### [facility] ([id number]) [address] [place] [address] MCH (RBC) [Entitic mass] 32.6 pg Normal 27-34 [facility] Comment on above: Performed By: #### 3 8476-8 #### [facility] ([id number]) [address] [place] [address] 25229 #### 2839-9 #### [facility] ([id number]) [address] [place] [address] MCHC (RBC) [Mass/Vol] 34.4 g/dL Normal 32-36 [facility] Comment on above: Performed By: #### 3 8476-8 #### [facility] ([id number]) [address] [place] [address] 92729 #### 2839-9 #### [facility] ([id number]) [address] [place] [address] MCV (RBC) [Entitic vol] 95 fL Normal 80-100 [facility] Comment on above: Performed By: #### 3 8476-8 #### [facility] ([id number]) [address] [place] [address] 72603 #### 2839-9 #### [facility] ([id number]) [address] [place] [address] Monocytes (Bld) [#/Vol] 0.6 10*3/uL Normal 0-0.9 [facility] Comment on above: Performed By: #### 3 8476-8 #### [facility] ([id number]) [address] [place] [address] 04885 #### 2839-9 #### [facility] ([id number]) [address] [place] [address] Monocytes/100 WBC (Bld) 8.0 % Normal [facility] Comment on above: Performed By: #### 3 8476-8 #### [facility] ([id number]) [address] [place] [address] 84588 #### 2839-9 #### [facility] ([id number]) [address] [place] [address] Neutrophils/100 WBC (Bld) 72.4 % Normal [facility] Comment on above: Performed By: #### 3 8476-8 #### [facility] ([id number]) [address] [place] [address] 16485 #### 2839-9 #### [facility] ([id number]) [address] [place] [address] Platelet mean volume (Bld) [Entitic vol] 6.7 fL Low 7-12 [facility] Comment on above: Performed By: #### 3 8476-8 #### [facility] ([id number]) [address] [place] [address] 60958 #### 2839-9 #### [facility] ([id number]) [address] [place] [address] Platelets (Bld) [#/Vol] 188 10*3/uL Normal 150-450 [facility] Comment on above: Performed By: #### 3 8476-8 #### [facility] ([id number]) [address] [place] [address] 17431 #### 2839-9 #### [facility] ([id number]) [address] [place] [address] RBC COUNT 3.33 X10E12/L Low 3.80-5.20 [facility] Comment on above: Performed By: #### 3 8476-8 #### [facility] ([id number]) [address] [place] [address] 99542 #### 2839-9 #### [facility] ([id number]) [address] [place] [address] WBC (Bld) [#/Vol] 8.0 10*3/uL Normal 4.0-11.0 [facility] Comment on above: Performed By: #### 3 8476-8 #### [facility] ([id number]) [address] [place] [address] 05638 #### 2839-9 #### [facility] ([id number]) [address] [place] [address] COMPREHENSIVE METABOLIC PANE Augustin 08-26-2024 Albumin [Mass/Vol] 2.9 g/dL Low 3.2-5.3 [facility] Comment on above: Performed By: #### 3 8476-8 #### [facility] ([id number]) [address] [place] [address] 91623 #### 2839-9 #### [facility] ([id number]) [address] [place] [address] ALP [Catalytic activity/Vol] 34 U/L Low 39-130 [facility] Comment on above: Performed By: #### 3 8476-8 #### [facility] ([id number]) [address] [place] [address] 40635 #### 2839-9 #### [facility] ([id number]) [address] [place] [address] ALT [Catalytic activity/Vol] 45 U/L High 0-31 [facility] Comment on above: Performed By: #### 3 8476-8 #### [facility] ([id number]) [address] [place] [id number] #### 2839-9 #### [facility] ([id number]) [address], [address] [place] [address] Anion gap [Moles/Vol] 5 mmol/L Normal 5-15 [facility] Comment on above: Performed By: #### 3 8476-8 #### [facility] ([id number]) [address] [place] [address] #### 2839-9 #### [facility] ([id number]) [address], [address] [place] [address] AST [Catalytic activity/Vol] 44 U/L High 0-41 [facility] Comment on above: Performed By: #### 3 8476-8 #### [facility] ([id number]) [address] [place] [address] 46784 #### 2839-9 #### [facility] ([id number]) [address] [place] [address] Bilirubin [Mass/Vol] 0.4 mg/dL Normal 0.3-1.2 [facility] Comment on above: Performed By: #### 3 8476-8 #### [facility] ([id number]) [address] [place] [address] 44192 #### 2839-9 #### [facility] ([id number]) [address], [address] [place] [address] Calcium [Mass/Vol] 8.4 mg/dL Low 8.5-10.5 [facility] Comment on above: Performed By: #### 3 8476-8 #### [facility] ([id number]) [address] [place] [address] 00979 #### 2839-9 #### [facility] ([id number]) [address], [address] [place] [address] Chloride [Moles/Vol] 105 mmol/L Normal 98-109 [facility] Comment on above: Performed By: #### 3 8476-8 #### [facility] ([id number]) [address] [place] [address] 12716 #### 2839-9 #### [facility] ([id number]) [address], [address] [place] [address] CO2 [Moles/Vol] 23 mmol/L Normal 22-32 [facility] Comment on above: Performed By: #### 3 8476-8 #### [facility] ([id number]) [address] [place] [address] 61742 #### 2839-9 #### [facility] ([id number]) [address], [address] [place] [address] Creatinine [Mass/Vol] 0.68 mg/dL Normal 0.40-1.00 [facility] Comment on above: Result Comment: METH OD TRACEABLE TO IDMS STANDARD Performed By: #### 3 8476-8 #### [facility] ([id number]) [address] [place] [address] 27949 #### 2839-9 #### [facility] ([id number]) [address], [address] [place] [address] eGFR (CKD-EPI) NON-RACE DEPENDENT >90 Normal >59 [facility] Comment on above: Result Comment: Reported eGFR is based on the CKD-EPI 2020 equation that does not use a race coefficient. Performed By: #### 3 8476-8 #### [facility] ([id number]) [address] [place] [address] 73426 #### 2839-9 #### [facility] ([id number]) [address], [address] [place] [address] Glucose [Mass/Vol] 80 mg/dL Normal 65-99 [facility] Comment on above: Performed By: #### 3 8476-8 #### [facility] ([id number]) [address] [place] [address] 64481 #### 2839-9 #### [facility] ([id number]) [address], [address] [place] [address] Potassium [Moles/Vol] 3.9 mmol/L Normal 3.5-5.0 [facility] Comment on above: Performed By: #### 3 8476-8 #### [facility] ([id number]) [address] [place] [address] 79935 #### 2839-9 #### [facility] ([id number]) [address], [address] [place] [address] Protein [Mass/Vol] 5.8 g/dL Low 6.0-8.0 [facility] Comment on above: Performed By: #### 3 8476-8 #### [facility] ([id number]) [address] [place] [address] 00436 #### 2839-9 #### [facility] ([id number]) [address], [address] [place] [address] Sodium [Moles/Vol] 133 mmol/L Low 134-146 [facility] Comment on above: Performed By: #### 3 8476-8 #### [facility] ([id number]) [address] [place] [address] 29449 #### 2839-9 #### [facility] ([id number]) [address], [address] [place] [address] Urea nitrogen [Mass/Vol] 15 mg/dL Normal 5-23 [facility] Comment on above: Performed By: #### 3 8476-8 #### [facility] ([id number]) [address] [place] [address] 25829 #### 2839-9 #### [facility] ([id number]) [address], [address] [place] [address] LIPASEon 08-26-2024 Lipase [Catalytic activity/Vol] 36 U/L Normal 17-40 [facility] Comment on above: Performed By: #### 3 8476-8 #### [facility] ([id number]) [address] [place] [address] 10780 #### 2839-9 #### [facility] ([id number]) [address], [address] [place] [address] MAGNESIUMon 08-26-2024 Magnesium [Mass/Vol] 1.8 mg/dL Normal 1.8-2.6 [facility] Comment on above: Performed By: #### 3 8476-8 #### [facility] ([id number]) [address] [place] [address] 82632 #### 2839-9 #### [facility] ([id number]) [address], [address] [place] [address] Troponin I.cardiac High sens itivity method [Mass/Vol]on 08-26-2024 TROPONIN I, HIGH SENSITIVITY <2 Normal <16 [facility] Comment on above: Performed By: #### 3 8476-8 #### [facility] ([id number]) [address] [place] [address] 15556 #### 2839-9 #### [facility] ([id number]) [address], [address] [place] [address] THYROID PROFILEon 08-15-2024 Free T4 [Mass/Vol] 0.89 ng/dL Normal 0.61-1.60 [facility] Comment on above: Performed By: #### 3 8476-8 #### [facility] ([id number]) [address] [place] [address] 99150 #### 2839-9 #### [facility] ([id number]) [address], [address] [place] [address] TSH 3.03 uIU/mL Normal 0.49-4.67 [facility] Comment on above: Performed By: #### 3 8476-8 #### [facility] ([id number]) [address] [place] [address] 84309 #### 2839-9 #### [facility] ([id number]) [address] [place] [address] URETHRITIS/DISCHARGE PLUS VA GINITIS (HTRX)on 08-04-2024 ATOPOBIUM VAGINAE 0.000 [facility] ATOPOBIUM VAGINAE Not detected [facility] BVAB 2,3 (BACTERIAL VAGINOSIS ASSOCIATED BACTERIA 2, 3); MOBILUNCUS SPP 0.000 [facility] BVAB 2,3 (BACTERIAL VAGINOSIS ASSOCIATED BACTERIA 2, 3); MOBILUNCUS SPP Not detected [facility] RAZIA ALBICANS, PARAPSILOSIS, TROPICALIS 0.000 [facility] RAZIA ALBICANS, PARAPSILOSIS, TROPICALIS Not detected [facility] RAZIA GLABRATA 0.000 [facility] RAZIA GLABRATA Not detected [facility] RAZIA KRUSEI 0.000 [facility] RAZIA KRUSEI Not detected [facility] CHLAMYDIA TRACHOMATIS 0.000 [facility] CHLAMYDIA TRACHOMATIS Not detected [facility] GARDNERELLA VAGINALIS 0.000 [facility] GARDNERELLA VAGINALIS Not detected N [facility] MEGASPHAERA (TYPES 1, 2) 0.000 [facility] MEGASPHAERA (TYPES 1, 2) Not detected [facility] MYCOPLASMA GENITALIUM 0.000 [facility] MYCOPLASMA GENITALIUM Not detected N [facility] NEISSERIA GONORRHOEAE 0.000 [facility] NEISSERIA GONORRHOEAE Not detected N [facility] TRICHOMONAS VAGINALIS 0.000 [facility] TRICHOMONAS VAGINALIS Not detected N [facility] Urinalysis macro (dipstick) panel (U)on 08-03-2024 Bilirubin, UA Negative Negative - 4(70) +++ mg/dL [facility] Blood, UA Negative Negative - 50 Nathanael/mcL [facility] Clarity, UA Clear [facility] Color, UA Yellow [facility] Glucose, UA Negative Negative - 1999(110) ++++ mg/dL [facility] Interpretation and review of laboratory results Normal [facility] Ketones, UA Negative Negative - 160(16) ++++ mg/dL [facility] Leukocytes, UA Negative Negative - 500+++ Annie/mcL [facility] Nitrite, UA Negative Negative - Positive [facility] pH, UA 7.0 5 - 9 [facility] Protein, UA Negative Negative - 1999(20) ++++ mg/dL [facility] Spec Grav, UA 1.020 1 - 1.03 [facility] Urobilinogen, UA 1.0 0.2 - 12 mg/dL [facility] THYROID PROFILEon 07-18-2024 Free T4 [Mass/Vol] 0.80 ng/dL Normal 0.61-1.60 [facility] Comment on above: Performed By: #### 3 8476-8 #### [facility] ([id number]) [address] [facility], [place] [address] #### 2839-9 #### [facility] ([id number]) [address], [address] [place] [address] TSH 3.22 uIU/mL Normal 0.49-4.67 [facility] Comment on above: Performed By: #### 3 8476-8 #### [facility] ([id number]) [address] [facility], [place] [address] #### 2839-9 #### [facility] ([id number]) [address] [facility], [address] [place] [address] TSHon 07-18-2024 Free T4 [Mass/Vol] 0.80 ng/dL 0.61 - 1. 60 ng/dL [facility] Comment on above: PERFORMED AT [facility] [address],[place] [address] TSH Qn 3.22 m[IU]/L [facility] Urinalysis macro (dipstick) panel (U)on 07-07-2024 Bilirubin, UA Negative Negative - 4(70) +++ mg/dL [facility] Blood, UA Negative Negative - 50 Nathanael/mcL [facility] Clarity, UA Clear [facility] Color, UA Yellow [facility] Glucose, UA Negative Negative - 1999(110) ++++ mg/dL [facility] Interpretation and review of laboratory results Normal [facility] Ketones, UA Negative Negative - 160(16) ++++ mg/dL [facility] Leukocytes, UA Trace Negative - 500+++ Annie/mcL [facility] Nitrite, UA Negative Negative - Positive [facility] pH, UA 7.0 5 - 9 [facility] Protein, UA Negative Negative - 2000(20) ++++ mg/dL [facility] Spec Grav, UA 1.025 1 - 1.03 [facility] Urobilinogen, UA 0.2 0.2 - 12 mg/dL [facility] TSH ([facility])on 06-20-2024 TSH Qn 2.32 m[IU]/L [facility] Comment on above: PERFORMED AT [place] [id number],[place] [address] [facility] TSH Qnon 06-20-2024 TSH 2.32 uIU/mL Normal 0.49-4.67 [facility] Comment on above: Performed By: #### 3 8476-8 #### [facility] ([id number]) [address] [place] [address] 07652 #### 2839-9 #### [facility] ([id number]) [address] [place] [address], [address] [place] [address] CBC AND AUTO DIFFon 06-06-20 ABSOLUTE BASOPHIL 0.0 X10E9/L Normal 0.0-0.2 [facility] Comment on above: Performed By: #### 3 8476-8 #### [facility] ([id number]) [address] [place] [address] 57802 #### 2839-9 #### [facility] ([id number]) [address] [place] [address], [address] [place] [address] ABSOLUTE NEUTROPHIL 4.8 X10E9/L Normal 1.5-6.6 [facility] Comment on above: Performed By: #### 3 8476-8 #### [facility] ([id number]) [address] [place] [address] 33436 #### 2839-9 #### [facility] ([id number]) [address] [facility], [address] [place] [address] Basophils/100 WBC (Bld) 0.3 % Normal [facility] Comment on above: Performed By: #### 3 8476-8 #### [facility] ([id number]) [address] [place] [address] 22150 #### 2839-9 #### [facility] ([id number]) [address], [address] [place] [address] Eosinophils (Bld) [#/Vol] 0.4 10*3/uL Normal 0.0-0.4 [facility] Comment on above: Performed By: #### 3 8476-8 #### [facility] ([id number]) [address] [place] [address] 10383 #### 2839-9 #### [facility] ([id number]) [address], [address] [place] [address] Eosinophils/100 WBC (Bld) 5.5 % Normal [facility] Comment on above: Performed By: #### 3 8476-8 #### [facility] ([id number]) [address] [place] [address] 30743 #### 2839-9 #### [facility] ([id number]) [address] [place] [address] Erythrocyte distribution width (RBC) [Ratio] 13.1 % Normal 11.5-15.0 [facility] Comment on above: Performed By: #### 3 8476-8 #### [facility] ([id number]) [address] [place] [address] 39302 #### 2839-9 #### [facility] ([id number]) [address], [address] [place] [address] Hematocrit (Bld) [Volume fraction] 32.4 % Low 35-47 [facility] Comment on above: Performed By: #### 3 8476-8 #### [facility] ([id number]) [address] [place] [address] 62710 #### 2839-9 #### [facility] ([id number]) [address] [place] [address] Hemoglobin (Bld) [Mass/Vol] 11.2 g/dL Low 11.7-15.5 [facility] Comment on above: Performed By: #### 3 8476-8 #### [facility] ([id number]) [address] [place] [address] 36906 #### 2839-9 #### [facility] ([id number]) [address], [address] [place] [address] Lymphocytes (Bld) [#/Vol] 1.7 10*3/uL Normal 1.0-3.5 [facility] Comment on above: Performed By: #### 3 8476-8 #### [facility] ([id number]) [address] [place] [address] 98209 #### 2839-9 #### [facility] ([id number]) [address], [address] [place] [address] Lymphocytes/100 WBC (Bld) 21.9 % Normal [facility] Comment on above: Performed By: #### 3 8476-8 #### [facility] ([id number]) [address] [place] [address] 09032 #### 2839-9 #### [facility] ([id number]) [address] [place] [address] MCH (RBC) [Entitic mass] 31.7 pg Normal 27-34 [facility] Comment on above: Performed By: #### 3 8476-8 #### [facility] ([id number]) [address] [place] [address] 23437 #### 2839-9 #### [facility] ([id number]) [address], [address] [place] [address] MCHC (RBC) [Mass/Vol] 34.5 g/dL Normal 32-36 [facility] Comment on above: Performed By: #### 3 8476-8 #### [facility] ([id number]) [address] [place] [address] 17831 #### 2839-9 #### [facility] ([id number]) [address] [place] [address] MCV (RBC) [Entitic vol] 92 fL Normal 80-100 [facility] Comment on above: Performed By: #### 3 8476-8 #### [facility] ([id number]) [address] [place] [address] 98384 #### 2839-9 #### [facility] ([id number]) [address] [place] [address] Monocytes (Bld) [#/Vol] 0.8 10*3/uL Normal 0-0.9 [facility] Comment on above: Performed By: #### 3 8476-8 #### [facility] ([id number]) [address] [place] [address] 63204 #### 2839-9 #### [facility] ([id number]) [address] [place] [address] Monocytes/100 WBC (Bld) 10.4 % Normal [facility] Comment on above: Performed By: #### 3 8476-8 #### [facility] ([id number]) [address] [place] [address] 85572 #### 2839-9 #### [facility] ([id number]) [address], [address] [place] [address] Neutrophils/100 WBC (Bld) 61.9 % Normal [facility] Comment on above: Performed By: #### 3 8476-8 #### [facility] ([id number]) [address] [place] [address] 97815 #### 2839-9 #### [facility] ([id number]) [address] [place] [address] Platelet mean volume (Bld) [Entitic vol] 6.9 fL Low 7-12 [facility] Comment on above: Performed By: #### 3 8476-8 #### [facility] ([id number]) [address] [place] [address] 01993 #### 2839-9 #### [facility] ([id number]) [address] [facility] [place] [address] Platelets (Bld) [#/Vol] 172 10*3/uL Normal 150-450 [facility] Comment on above: Performed By: #### 3 8476-8 #### [facility] ([id number]) [address] [place] [address] 74100 #### 2839-9 #### [facility] ([id number]) [address] [facility] [place] [address] RBC COUNT 3.54 X10E12/L Low 3.80-5.20 [facility] Comment on above: Performed By: #### 3 8476-8 #### [facility] ([id number]) [address] [place] [address] 01070 #### 2839-9 #### [facility] ([id number]) [address], [address] [place] [address] WBC (Bld) [#/Vol] 7.7 10*3/uL Normal 4.0-11.0 [facility] Comment on above: Performed By: #### 3 8476-8 #### [facility] ([id number]) [address] [place] [address] 10984 #### 2839-9 #### [facility] ([id number]) [address] [place] [address] COMPREHENSIVE METABOLIC PANE Augustin 06-06-2024 Albumin [Mass/Vol] 3.2 g/dL Normal 3.2-5.3 [facility] Comment on above: Performed By: #### 3 8476-8 #### [facility] ([id number]) [address] [place] [address] 42658 #### 2839-9 #### [facility] ([id number]) [address] [place] [address] ALP [Catalytic activity/Vol] 38 U/L Low 39-130 [facility] Comment on above: Performed By: #### 3 8476-8 #### [facility] ([id number]) [address] [place] [address] 10671 #### 2839-9 #### [facility] ([id number]) [address] [place] [address] ALT [Catalytic activity/Vol] 54 U/L High 0-31 [facility] Comment on above: Performed By: #### 3 8476-8 #### [facility] ([id number]) [address] [place] [address] 71010 #### 2839-9 #### [facility] ([id number]) [address] [place] [address] Anion gap [Moles/Vol] 1 mmol/L Low 5-15 [facility] Comment on above: Performed By: #### 3 8476-8 #### [facility] ([id number]) [address] [place] [address] 03591 #### 2839-9 #### [facility] ([id number]) [address] [place] [address] AST [Catalytic activity/Vol] 35 U/L Normal 0-41 [facility] Comment on above: Performed By: #### 3 8476-8 #### [facility] ([id number]) [address] [place] [address] 77820 #### 2839-9 #### [facility] ([id number]) [address] [place] [address] Bilirubin [Mass/Vol] 0.4 mg/dL Normal 0.3-1.2 [facility] Comment on above: Performed By: #### 3 8476-8 #### [facility] ([id number]) [address] [place] [address] 46649 #### 2839-9 #### [facility] ([id number]) [address] [place] [address] Calcium [Mass/Vol] 8.3 mg/dL Low 8.5-10.5 [facility] Comment on above: Performed By: #### 3 8476-8 #### [facility] ([id number]) [address] [place] [address] 63306 #### 2839-9 #### [facility] ([id number]) [address] [place] [address] Chloride [Moles/Vol] 103 mmol/L Normal 98-109 [facility] Comment on above: Performed By: #### 3 8476-8 #### [facility] ([id number]) [address] [place] [address] 10925 #### 2839-9 #### [facility] ([id number]) [address] [place] [address] CO2 [Moles/Vol] 26 mmol/L Normal 22-32 [facility] Comment on above: Performed By: #### 3 8476-8 #### [facility] ([id number]) [address] [place] [address] 48012 #### 2839-9 #### [facility] ([id number]) [address] [place] [address] Creatinine [Mass/Vol] 0.64 mg/dL Normal 0.40-1.00 [facility] Comment on above: Result Comment: METH OD TRACEABLE TO IDMS STANDARD Performed By: #### 3 8476-8 #### [facility] ([id number]) [address] [place] [address] 95156 #### 2839-9 #### [facility] ([id number]) [address] [place] [address] eGFR (CKD-EPI) NON-RACE DEPENDENT >90 Normal >59 [facility] Comment on above: Result Comment: Reported eGFR is based on the CKD-EPI 2021 equation that does not use a race coefficient. Performed By: #### 3 8476-8 #### [facility] ([id number]) [address] [place] [address] 85014 #### 2839-9 #### [facility] ([id number]) [address] [place] [address] Glucose [Mass/Vol] 79 mg/dL Normal 65-99 [facility] Comment on above: Performed By: #### 3 8476-8 #### [facility] ([id number]) [address] [place] [address] #### 2839-9 #### [facility] ([id number]) [address], [address] [place] [address] Potassium [Moles/Vol] 3.7 mmol/L Normal 3.5-5.0 [facility] Comment on above: Performed By: #### 3 8476-8 #### [facility] ([id number]) [address] [place] [address] #### 2839-9 #### [facility] ([id number]) [address], [address] [place] [address] Protein [Mass/Vol] 6.1 g/dL Normal 6.0-8.0 [facility] Comment on above: Performed By: #### 3 8476-8 #### [facility] ([id number]) [address] [place] [address] #### 2839-9 #### [facility] ([id number]) [address], [address] [place] [address] Sodium [Moles/Vol] 130 mmol/L Low 134-146 [facility] Comment on above: Performed By: #### 3 8476-8 #### [facility] ([id number]) [address] [place] [address] #### 2839-9 #### [facility] ([id number]) [address], [address] [place] [address] Urea nitrogen [Mass/Vol] 15 mg/dL Normal 5-23 [facility] Comment on above: Performed By: #### 3 8476-8 #### [facility] ([id number]) [address] [place] [address] #### 2839-9 #### [facility] ([id number]) [address], [address] [place] [address] HCG.beta subunit IA 3rd IS Q non 06-06-2024 HCG.beta [place] Qn 836743 m[IU]/mL Normal [facility] Comment on above: Result Comment: [...] neoplasms. Performed By: #### 3 8476-8 #### [facility] ([id number]) [address] [place] [address] 450[address] #### 2839-9 #### [facility] ([id number]) [address], [address] [place] [address] URN MACROSCOPIC NURon 2023 BILIRUBIN CHLOÉ Negative Normal NEG [facility] Comment on above: Performed By: #### 3 8476-8 #### [facility] ([id number]) [address] [place] [address] 51369 #### 2839-9 #### [facility] ([id number]) [address], [address] [place] [address] BLOOD/HGB CHLOÉ Trace Abnormal NEG [facility] Comment on above: Performed By: #### 3 8476-8 #### [facility] ([id number]) [address] [place] [address] 77159 #### 2839-9 #### [facility] ([id number]) [address], [address] [place] [address] GLUCOSE CHLOÉ Negative Normal NEG [facility] Comment on above: Performed By: #### 3 8476-8 #### [facility] ([id number]) [address] [place] [address] 28750 #### 2839-9 #### [facility] ([id number]) [address] [place] [address] KETONES CHLOÉ Negative Normal NEG [facility] Comment on above: Performed By: #### 3 8476-8 #### [facility] ([id number]) [address] [place] [address] 85575 #### 2839-9 #### [facility] ([id number]) [address], [address] [place] [address] LEUKOCYTE ESTERASE CHLOÉ Negative Normal NEG [facility] Comment on above: Performed By: #### 3 8476-8 #### [facility] ([id number]) [address] [place] [address] 70019 #### 2839-9 #### [facility] ([id number]) [address], [address] [place] [address] NITRITE CHLOÉ Negative Normal NEG [facility] Comment on above: Performed By: #### 3 8476-8 #### [facility] ([id number]) [address] [place] [address] 68824 #### 2839-9 #### [facility] ([id number]) [address] [place] [address] PH CHLOÉ 5.0 Normal 5.0-8.5 [facility] Comment on above: Performed By: #### 3 8476-8 #### [facility] ([id number]) [address] [place] [address] 56609 #### 2839-9 #### [facility] ([id number]) [address], [address] [place] [address] PROTEIN CHLOÉ Negative Normal NEG [facility] Comment on above: Performed By: #### 3 8476-8 #### [facility] ([id number]) [address] [place] [address] 15252 #### 2839-9 #### [facility] ([id number]) [address] [facility], [address] [place] [address] SPECIFIC GRAVITY CHLOÉ >=1.030 Normal 1.003-1.035 [facility] Comment on above: Performed By: #### 3 8476-8 #### [facility] ([id number]) [address] [place] [address] 12448 #### 2839-9 #### [facility] ([id number]) [address] [facility], [address] [place] [address] UROBILINOGEN CHLOÉ 0.2 eu/dL Normal <1.1 [facility] Comment on above: Performed By: #### 3 8476-8 #### [facility] ([id number]) [address] [place] [address] 66305 #### 2839-9 #### [facility] ([id number]) [address] [facility], [address] [place] [address] HCG ( test) Ql (U)o n 05-27-2024 Beta HCG ( test) Ql (U) Positive Abnormal NEG [facility] Comment on above: Performed By: #### 3 8476-8 #### [facility] ([id number]) [address] [place] [address] 97204 #### 2839-9 #### [facility] ([id number]) [address] [facility], [address] [place] [address] URN MACROSCOPIC NURon 2023 BILIRUBIN CHLOÉ Negative Normal NEG [facility] Comment on above: Performed By: #### 3 5365-6, CMP, 3016-3, 35639-2 #### [facility] ([id number]) [address], [address] [place] [address] BLOOD/HGB CHLOÉ Small Abnormal NEG [facility] Comment on above: Performed By: #### 3 5365-6, [facility], 3015-3, #### [facility] ([id number]) [address], [address] [place] [address] GLUCOSE CHLOÉ Negative Normal NEG [facility] Comment on above: Performed By: #### 3 5365-6, CMP, 3015-3, #### [facility] ([id number]) [address], [address] [place] [address] KETONES CHLOÉ Negative Normal NEG [facility] Comment on above: Performed By: #### 3 5365-6, CMP, 3015-3, #### [facility] ([id number]) [address], [address] [place] [address] LEUKOCYTE ESTERASE CHLOÉ Negative Normal NEG [facility] Comment on above: Performed By: #### 3 5365-6, [facility], 3015-12, #### [facility] ([id number]) [address], [address] [place] [address] NITRITE CHLOÉ Negative Normal NEG [facility] Comment on above: Performed By: #### 3 5365-6, CMP, 3015-3, #### [facility] ([id number]) [address], [address] [place] [address] PH CHLOÉ 5.5 Normal 5.0-8.5 [facility] Comment on above: Performed By: #### 3 5365-6, CMP, 3, #### [facility] ([id number]) [address], [address] [place] [address] PROTEIN CHLOÉ Negative Normal NEG [facility] Comment on above: Performed By: #### 3 5365-6, CMP, 3016-3, 09900-6 #### [facility] ([id number]) [address], [address] [place] [address] SPECIFIC GRAVITY CHLOÉ >=1.030 Normal 1.003-1.035 [facility] Comment on above: Performed By: #### 3 5365-6, [facility], 6-3, 11694-8 #### [facility] ([id number]) [address], [address] [place] [address] UROBILINOGEN CHLOÉ 1.0 eu/dL Normal <1.1 [facility] Comment on above: Performed By: #### 3 5365-6, [facility], 6-3, 86815-3 #### [facility] ([id number]) [address], [address] [place] [address] HCG.beta subunit IA 3rd IS Q non 05-14-2024 [place] [address] m[IU]/mL Normal P [facility] Comment on above: Result Comment: NEW [...] nontrophoblastic neoplasms. Performed By: #### 3 5365-6, [facility], 6-3, 50956-8 #### [facility] ([id number]) [address], [address] [place] [address] HCG.beta subunit IA 3rd IS Q non 05-11-2024 [place] [address] m[IU]/mL Normal P [facility] Comment on above: Result Comment: NEW [...] nontrophoblastic neoplasms. Performed By: #### 3 5365-6, [facility], 3016-3, 93775-1 #### [facility] ([id number]) [address] [facility], [address] [place] [address] TSH Qnon 05-11-2024 TSH 1.06 uIU/mL Normal 0.49-4.67 [facility] Comment on above: Performed By: #### 3 5365-6, [facility], 3016-3, 93022-7 #### [facility] ([id number]) [address] [facility], [address] [place] [address] HCG.beta subunit IA 3rd IS Q non 05-08-2024 HCG.beta subunit Qn 6446 m[IU]/mL Normal [facility] Comment on above: Result Comment: NEW REFERENCE [...] nontrophoblastic neoplasms. Performed By: #### 3 5365-6, [facility], 3016-3, 29311-2 #### [facility] ([id number]) [address] [facility], [address] [place] [address] HCG.beta subunit IA 3rd IS Q non 05-06-2024 HCG.beta subunit Qn 3140 m[IU]/mL Normal [facility] Comment on above: Result Comment: NEW REFERENCE [...] nontrophoblastic neoplasms. Performed By: #### 3 5365-6, [facility], 3016-3, 82869-7 #### [facility] ([id number]) [address] [facility], [address] [place] [address] HCG.beta subunit IA 3rd IS Q non 05-01-2024 HCG.beta subunit Qn 560 m[IU]/mL Normal [facility] Comment on above: Result Comment: [...] nontrophoblastic neoplasms. Performed By: #### 3 5365-6, [facility], 3016-3, 15247-2 #### [facility] ([id number]) [address] [place] [address] [address] [place] [address] HCG.beta subunit IA 3rd IS Q non 04-28-2024 HCG.beta subunit Qn 159 m[IU]/mL Normal [facility] Comment on above: Result Comment: [...] Performed By: #### 3 5365-6, CMP, 3016-3, 07876-6 #### [facility] ([id number]) [address], [address] [place] [address] FREE T3on 02-14-2024 Free T3 [Mass/Vol] 3.94 pg/mL High 2.50-3.90 [facility] Comment on above: Performed By: #### 3 5365-6, [facility], 6-3, 07347-9 #### [facility] ([id number]) [address], [address] [place] [address] THYROID PROFILEon 02-14-2024 Free T4 [Mass/Vol] 0.91 ng/dL Normal 0.61-1.60 [facility] Comment on above: Performed By: #### 3 5365-6, [facility], [facility]3, 64748-7 #### [facility] ([id number]) [address], [facility] [address] [place] [address] TSH 0.52 uIU/mL Normal 0.49-4.67 [facility] Comment on above: Performed By: #### 3 5365-6, [facility], [facility]-3, 50401-1 #### [facility] ([id number]) [address], [facility] [address] [place] [address] THYROPEROXIDASE ABon 024 TPO Ab Qn 403 [IU]/mL High <10 [facility] Comment on above: Performed By: #### 3 5365-6, [facility], [facility], 32746-8 #### [facility] ([id number]) [address], [address] [place] [address] Thyroid stimulating immunogl obulins Qn (S)on 02-14-2024 TSI See Below Normal [facility] Comment on above: Result Comment: [...] Clinical correlation is required. Test Performed By: [place] [address] [employer] Supervisor: Eloy Dangelo III, M.D. CLIA #[id number] Performed By: #### 3 5365-6, CMP, 3016-3, #### [facility] ([id number]) [address] [facility], [address] [place] [address] ACUTE HEPATITIS PANELon 12-27 ANTI HCV W/PCR REFLX Non-Reactive Normal NRCT [facility] Comment on above: Result Comment: If recent infection suspected, recommend repeat testing (>2 months). Orbbmr-bl-jmjhsa ratio is <0.80. Performed By: #### 3 5365-6, CMP, 3016-3, #### [facility] ([id number]) [address] [facility], [address] [place] [address] HEPATITIS A IGM Non-Reactive Normal NRCT [facility] Comment on above: Performed By: #### 3 5365-6, CMP, 3016-3, #### [facility] ([id number]) [address] [facility], [address] [place] [address] HEPATITIS B CORE IGM Negative Normal NEG [facility] Comment on above: Performed By: #### 3 5365-6, CMP, 3016-3, 99398-7 #### [facility] ([id number]) [address] [facility], [address] [place] [address] HEPATITIS B SURF AG Negative Normal NEG [facility] Comment on above: Performed By: #### 3 5365-6, CMP, 3016-3, 11998-4 #### [facility] ([id number]) [address], [address] [place] [address] COMPREHENSIVE METABOLIC PANE Augustin 2024 Albumin [Mass/Vol] 3.8 g/dL Normal 3.2-5.3 [facility] Comment on above: Performed By: #### 3 5365-6, CMP, 3016-3, 25198-6 #### [facility] ([id number]) [address], [address] [place] [address] ALP [Catalytic activity/Vol] 48 U/L Normal 39-130 [facility] Comment on above: Performed By: #### 3 5365-6, CMP, 3016-3, 01523-4 #### [facility] ([id number]) [address], [address] [place] [address] ALT [Catalytic activity/Vol] 38 U/L High 0-31 [facility] Comment on above: Performed By: #### 3 5365-6, CMP, 3016-3, 21020-6 #### [facility] ([id number]) [address], [address] [place] [address] Anion gap [Moles/Vol] 9 mmol/L Normal 5-15 [facility] Comment on above: Performed By: #### 3 5365-6, CMP, 3016-3, #### [facility] ([id number]) [address], [address] [place] [address] AST [Catalytic activity/Vol] 32 U/L Normal 0-41 [facility] Comment on above: Performed By: #### 3 5365-6, CMP, 3016-3, 88141-9 #### [facility] ([id number]) [address], [address] [place] [address] Bilirubin [Mass/Vol] 0.9 mg/dL Normal 0.3-1.2 [facility] Comment on above: Performed By: #### 3 5365-6, [facility], 3016-3, 47651-5 #### [facility] ([id number]) [address], [address] [place] [address] Calcium [Mass/Vol] 8.8 mg/dL Normal 8.5-10.5 [facility] Comment on above: Performed By: #### 3 5365-6, [facility], 3016-3, 31831-3 #### [facility] ([id number]) [address], [address] [place] [address] Chloride [Moles/Vol] 104 mmol/L Normal 98-109 [facility] Comment on above: Performed By: #### 3 5365-6, [facility], 6-3, #### [facility] ([id number]) [address], [address] [place] [address] CO2 [Moles/Vol] 26 mmol/L Normal 22-32 [facility] Comment on above: Performed By: #### 3 5365-6, [facility], 6-3, 83241-3 #### [facility] ([id number]) [address], [address] [place] [address] Creatinine [Mass/Vol] 0.64 mg/dL Normal 0.40-1.00 [facility] Comment on above: Result Comment: METH OD TRACEABLE TO IDMS STANDARD Performed By: #### 3 5365-6, [facility], 3016-3, 09020-9 #### [facility] ([id number]) [address], [address] [place] [address] eGFR (CKD-EPI) NON-RACE DEPENDENT >90 Normal >59 [facility] Comment on above: Result Comment: Reported eGFR is based on the CKD-EPI 2020 equation that does not use a race coefficient. Performed By: #### 3 5365-6, CMP, 3016-3, #### [facility] ([id number]) [address], [address] [place] [address] Glucose [Mass/Vol] 80 mg/dL Normal 65-99 [facility] Comment on above: Performed By: #### 3 5365-6, CMP, 3016-3, 09503-8 #### [facility] ([id number]) [address], [address] [place] [address] Potassium [Moles/Vol] 3.7 mmol/L Normal 3.5-5.0 [facility] Comment on above: Performed By: #### 3 5365-6, CMP, 3016-3, #### [facility] ([id number]) [address], [address] [place] [address] Protein [Mass/Vol] 6.8 g/dL Normal 6.0-8.0 [facility] Comment on above: Performed By: #### 3 5365-6, CMP, 3016-3, #### [facility] ([id number]) [address] [place] [address] Sodium [Moles/Vol] 139 mmol/L Normal 134-146 [facility] Comment on above: Performed By: #### 3 5365-6, CMP, 3015-3, #### [facility] ([id number]) [address], [address] [place] [address] Urea nitrogen [Mass/Vol] 11 mg/dL Normal 5-23 [facility] Comment on above: Performed By: #### 3 5365-6, CMP, 3016-3, #### [facility] ([id number]) [address], [address] [place] [address] Lipid 1996 panelon 4 Cholesterol [Mass/Vol] 94 mg/dL Low 150-200 [facility] Comment on above: Performed By: #### 3 5365-6, CMP, 3016-3, 56716-4 #### [facility] ([id number]) [address], [address] [place] [address] Cholesterol in HDL [Mass/Vol] 43 mg/dL Normal >39 [facility] Comment on above: Result Comment: HDL <40 mg/dL - High Risk HDL > or = 40mg/dL- Desirable HDL >60 mg/dL - Negative Risk Performed By: #### 3 5365-6, [facility], 3016-3, 66259-7 #### [facility] ([id number]) [address], [address] [place] [address] Cholesterol in LDL [Mass/Vol] 39 mg/dL Normal <130 [facility] Comment on above: Result Comment: LDL <100 mg/dL - Desirable LDL >160 mg/dL - High Risk Performed By: #### 3 5365-6, [facility], 3016-3, 10815-3 #### [facility] ([id number]) [address], [address] [place] [address] Cholesterol in VLDL [Mass/Vol] 12 mg/dL Normal 0-30 [facility] Comment on above: Performed By: #### 3 5365-6, CMP, 3016-3, 98745-9 #### [facility] ([id number]) [address], [address] [place] [address] CHOLESTEROL:HDL 2.2 Normal 1.0-5.0 [facility] Comment on above: Performed By: #### 3 5365-6, CMP, 3016-3, 99462-7 #### [facility] ([id number]) [address] [facility], [address] [place] [address] Triglyceride [Mass/Vol] 58 mg/dL Normal 27-150 [facility] Comment on above: Performed By: #### 3 5365-6, [facility], 3, #### [facility] ([id number]) [address], [address] [place] [address] Mullerian inhibiting substan ce [Mass/Vol]on 2024 ANTI MULLERIAN HORM See Below Normal [facility] Comment on above: Result Comment: NOTE TEST RESULT FLAG UNIT REF.RANGE ------ Anti Mclean Hormone 0.54 L ng/mL 0.58-8.13 Test Performed By: [facility] [address] [place] [address] Eyewear Manufacturing Supervisor: Eloy Dangelo III, M.D. CLIA #[id number] Performed By: #### 3 5365-6, [facility], 3, #### [facility] ([id number]) [address] [facility], [address] [place] [address] Selenium [Mass/Vol]on 2023 SELENIUM, SER/PLASMA 108.6 ug/L Normal 23.0-190.0 [facility] Comment on above: Result Comment: NOTE INTERPRETIVE [...] developed and its performance characteristics determined by [facility]. It has not been cleared or approved by the [place] Food and Drug Administration. This test was performed in a CLIA certified laboratory and is intended for clinical purposes. Performed By: [facility] [address] [place] [address] [employer] Supervisor: Deangelo Rosario MD, PhD CLIA Number: [id number] Performed By: #### 3 5365-6, [facility], 3, 16922-7 #### [facility] ([id number]) [address], [facility] [address] [place] [address] THYROID PROFILEon 2024 Free T4 [Mass/Vol] 0.67 ng/dL Normal 0.61-1.60 [facility] Comment on above: Performed By: #### 3 5365-6, [facility], 3015-3, 51697-2 #### [facility] ([id number]) [address] [facility], [facility] [address] [place] [address] TSH 2.55 uIU/mL Normal 0.49-4.67 [facility] Comment on above: Performed By: #### 3 5365-6, [facility], 3, 93232-9 #### [facility] ([id number]) [address] [place] [address] VITAMIN E, SER/PLon 01-24-20 VIT E(ALPHA-TOCOPHEROL) 7.6 mg/L Normal 5.5-18.0 [facility] Comment on above: Result Comment: NOTE This test was developed and its performance characteristics determined by [facility]. It has not been cleared or approved by the [place] Food and Drug Administration. This test was performed in a CLIA certified laboratory and is intended for clinical purposes. Performed By: #### 3 5365-6, [facility], 3, #### [facility] ([id number]) [address], [address] [place] [address] VIT E(GAMMA-TOCOPHEROL) 0.3 mg/L Normal 0.0-6.0 [facility] Comment on above: Result Comment: NOTE Performed By: [facility] [address] [place] [address] [employer] Supervisor: Deangelo Rosario MD, PhD CLIA Number: [id number] Performed By: #### 3 5365-6, [facility], [facility]-3, 18597-1 #### [facility] ([id number]) [address] [place] [address] LIVER PANELon 01-18-2024 Albumin [Mass/Vol] 3.8 g/dL Normal 3.2-5.3 [facility] Comment on above: Performed By: #### 3 5365-6, [facility], [facility]3, #### [facility] ([id number]) [address] [place] [address] ALP [Catalytic activity/Vol] 44 U/L Normal 39-130 [facility] Comment on above: Performed By: #### 3 5365-6, [facility], [facility] [place]-3, 97411-7 #### [facility] ([id number]) [address], [address] [place] [address] ALT [Catalytic activity/Vol] 33 U/L High 0-31 [facility] Comment on above: Performed By: #### 3 5365-6, [facility], [facility] [place]6-3, 81862-1 #### [facility] ([id number]) [address], [address] [place] [address] AST [Catalytic activity/Vol] 30 U/L Normal 0-41 [facility] Comment on above: Performed By: #### 3 5365-6, [facility], 3016-3, 27136-5 #### [facility] ([id number]) [address], [address] [place] [address] Bilirubin [Mass/Vol] 0.7 mg/dL Normal 0.3-1.2 [facility] Comment on above: Performed By: #### 3 5365-6, CMP, 3016-3, #### [facility] ([id number]) [address], [address] [place] [address] Bilirubin.direct [Mass/Vol] 0.2 mg/dL Normal 0.0-0.4 [facility] Comment on above: Performed By: #### 3 5365-6, [facility], 6-3, #### [facility] ([id number]) [address], [address] [place] [address] Protein [Mass/Vol] 6.7 g/dL Normal 6.0-8.0 [facility] Comment on above: Performed By: #### 3 5365-6, [facility], 6-3, #### [facility] ([id number]) [address], [address] [place] [address] MAGNESIUMon 01-18-2024 Magnesium [Mass/Vol] 1.7 mg/dL Low 1.8-2.6 [facility] Comment on above: Performed By: #### 3 5365-6, [facility], 6-3, #### [facility] ([id number]) [address], [address] [place] [address] TSH Qnon 01-18-2024 TSH 1.07 uIU/mL Normal 0.49-4.67 [facility] Comment on above: Performed By: #### 3 5365-6, CMP, 6-3, #### [facility] ([id number]) [address], [address] [place] [address] Vitamin D+Metabolites [Mass/ Vol]on 01-18-2024 VITAMIN D 25 HYD TOT 86.7 ng/mL Normal 30-100 ProM [facility] Comment on above: Result Comment: Vitamin D status 25 [place] Vitamin D Deficiency <20 ng/mL Insufficiency 20-29 ng/mL Sufficiency 30-100 ng/mL Toxicity >100 ng/mL NOTE: A pediatric reference range has not been established by the public health teacher of this kit. The [place] [employer] recommends a Vitamin D level of = or >20ng/mL in infants and children. Performed By: #### 3 5365-6, [facility], 3016-3, 67850-5 #### [facility] ([id number]) [address], [address] [place] [address] US THYROIDon 01-06-2024 US THYROID US THYROID [...] Friend MD on 01/06/2024 6:53 AM Normal [facility] FREE T3on 01-03-2024 Free T3 [Mass/Vol] 3.48 pg/mL Normal 2.50-3.90 [facility] Comment on above: Performed By: #### 3 5365-6, CMP, 3016-3, 84960-6 #### [facility] ([id number]) [address] [place] [address], [address] [place] [address] Reference Lab Test IDon 03-0 CELIAC COMP CASCADE SEE COMMENTS 01/10/2024 10:26 PM Normal [facility] Comment on above: Result Comment: [...] instructions. Its performance characteristics were determined by [facility] in a manner consistent with CLIA requirements. This test has not been cleared or approved by the U.S. Food and Drug Administration. CLIA: [id number] CLIA Posting Specialist: ALAN LOUIS MD,PhD Celiac Disease See Note Interpretation See Comment: Celiac disease probable. Consider biopsy. Test Performed by: [facility] [address] [place] [address] Posting Specialist: Alan Louis M.D. Ph.D.; CLIA# [id number] Test Performed by: [place] [address] Posting Specialist: Alan Louis M.D. Ph.D.; CLIA# [id number] Performed By: #### 3 5365-6, [facility], 3016-3, 38507-1 #### [facility] ([id number]) [address], [address] [place] [address] THYROID PROFILEon 01-03-2024 Free T4 [Mass/Vol] 0.82 ng/dL Normal 0.61-1.60 [facility] Comment on above: Performed By: #### 3 5365-6, [facility], 6-3, #### [facility] ([id number]) [address], [address] [place] [address] TSH 0.41 uIU/mL Low 0.49-4.67 [facility] Comment on above: Performed By: #### 3 5365-6, [facility], [address], 21450-0 #### [facility] ([id number]) [address], [address] [place] [address] tTG IgA IA Qn (S)on 01-03-20 24 ENDOMYSIAL ABS IGA Negative Normal Negative [facility] Comment on above: Result Comment: [...] as indicated by the Celiac Disease Comprehensive [place] ([place] Test Unit Code CDCOM). In addition serum IgA endomysial antibody may also be negative in gluten-sensitive patients (with celiac disease, dermatitis herpetiformis or other gluten-sensitive disorders), who adhere to a strict gluten-free diet. ADDITIONAL INFORMATION This test has been modified from the public health teacher's instructions. Its performance characteristics were determined by [facility] in a manner consistent with CLIA requirements. This test has not been cleared or approved by the U.S. Food and Drug Administration. Test Performed by: [place] [address] Posting Specialist: Alan Louis M.D. Ph.D.; CLIA# [id number] Performed By: #### 3 5365-6, CMP, 3016-3, 54172-1 #### [facility] ([id number]) [address], [address] [place] [address] FREE T3on 12-21-2023 Free T3 [Mass/Vol] 3.75 pg/mL Normal 2.50-3.90 [facility] Comment on above: Performed By: #### T HYR, 3051-0, 8099-4 #### [facility] ([id number]) [address] [facility], [address] [place] [address] #### 76001-9 #### [facility] ([id number]) [address] [place] [address] Mullerian inhibiting substan ce [Mass/Vol]on 12-21-2023 ANTI MULLERIAN HORM See Below Normal [facility] Comment on above: Result Comment: NOTE TEST RESULT FLAG UNIT REF.RANGE ------ Anti Mclean Hormone 0.37 L ng/mL 0.58-8.13 Test Performed By: [facility] [employer] [address] [place] [address] [employer]ewear Manufacturing Supervisor: Eloy Dangelo III, M.D. CLIA #[id number] Performed By: #### 3 5365-6, [facility], 3016-3, 88932-8 #### [facility] ([id number]) [address] [place] [address], [address] [place] [address] THYROID PROFILEon 12-21-2023 Free T4 [Mass/Vol] 0.94 ng/dL Normal 0.61-1.60 [facility] Comment on above: Performed By: #### Delma MERCHANT, 3051-0, 8099-4 #### [facility] ([id number]) [address] [place] [address], [address] [place] [address] #### 48875-1 #### [facility] ([id number]) [address] [place] [address] TSH 0.19 uIU/mL Low 0.49-4.67 [facility] Comment on above: Performed By: #### Delma MERCHANT, 3051-0, 8099-4 #### [facility] ([id number]) [facility], [address] [place] [address] #### 30733-7 #### [facility] ([id number]) [address] [place] [address] THYROPEROXIDASE ABon 024 TPO Ab Qn 415 [IU]/mL High <10 [facility] Comment on above: Performed By: #### Delma MERCHANT, 3051-0, 8099-4 #### [facility] ([id number]) [address], [address] [place] [address] #### 97388-3 #### [facility] ([id number]) [address] [place] [address] Thyroid stimulating immunogl obulins Qn (S)on 12-21-2023 TSI See Below Normal [facility] Comment on above: Result Comment: [...] Clinical correlation is required. Test Performed By: [facility] [employer] [address] [place] [address] [employer]ewear Manufacturing Supervisor: Eloy Dangelo III, M.D. CLIA #[id number] Performed By: #### 3 5365-6, [facility], 3016-3, 69214-3 #### [facility] ([id number]) [address] [place] [address], [address] [place] [address] Mullerian inhibiting substan ce [Mass/Vol]on 12-13-2023 ANTI MULLERIAN HORM See Below Normal [facility] Comment on above: Result Comment: NOTE TEST RESULT FLAG UNIT REF.RANGE ------ Anti Mclean Hormone 0.31 L ng/mL 0.58-8.13 Test Performed By: [facility] [employer] [address] [place] [address] [employer]ewear Manufacturing Supervisor: Eloy Dangelo III, M.D. CLIA #[id number] Performed By: #### 3 8476-8 #### [facility] ([id number]) [address] [place] [address], [place] [address] #### 2839-9 #### [facility] ([id number]) [address] [place] [address], [address] [place] [address] Progesterone [Mass/Vol]on PROGESTERONE 3.5 ng/mL Normal [facility] Comment on above: Result Comment: FEMALES: 1st Tri: 4.7-50.7 ng/ml 2nd Tri: 19.4-45.3 ng/ml MENSTRUATING FEMALES: Follicular: 0.3-1.5 ng/ml Mid Luteal: 5.2-18.6 ng/ml Post [place]: <0.1-0.8 ng/ml Performed By: #### 3 8476-8 #### [facility] ([id number]) [address] [place] [address], [place] [address] #### 2839-9 #### [facility] ([id number]) [address] [facility], [address] [place] [address] US PELVIC WITH TRANSVAGINALo n 12-13-2023 US [...] Friend MD on 12/13/2023 6:28 PM Normal [facility] Surgical Pathology Reporton 11-27-2023 Surgical Pathology Report (NOTE) Path Number: [id number] -- Diagnosis -- GALLBLADDER, CHOLECYSTECTOMY: -CHRONIC CHOLECYSTITIS [...] lesions or periductal lymph nodes are identified. Assistant Buyer sections 1c. tm Peggy Naylor/анна2:11/27/2023 Microscopic Description Microscopic examination performed. Processing Lab: [address] [address] Interpretation Performed at [address] [address] SURGICAL PATHOLOGY CONSULTATION Patient Name: PHILLIP NORIEGA [facility] Rec: [id number] [facility] [employer] ANATOMIC PATHOLOGY [address] [place] [address]. [place] [address] Normal [facility] COMPREHENSIVE METABOLIC PANE Augustin 11-16-2023 Albumin [Mass/Vol] 3.7 g/dL Normal 3.2-5.3 [facility] Comment on above: Performed By: #### 3 5365-6, CMP, 3016-3, 05723-6 #### [facility] ([id number]) [address], [address] [place] [address] ALP [Catalytic activity/Vol] 45 U/L Normal 39-130 [facility] Comment on above: Performed By: #### 3 5365-6, CMP, 3016-3, 79063-7 #### [facility] ([id number]) [address], [address] [place] [address] ALT [Catalytic activity/Vol] 51 U/L High 0-31 [facility] Comment on above: Performed By: #### 3 5365-6, CMP, 3016-3, 92758-8 #### [facility] ([id number]) [address], [address] [place] [address] Anion gap [Moles/Vol] 8 mmol/L Normal 5-15 [facility] Comment on above: Performed By: #### 3 5365-6, CMP, 3016-3, #### [facility] ([id number]) [address], [address] [place] [address] AST [Catalytic activity/Vol] 40 U/L Normal 0-41 [facility] Comment on above: Performed By: #### 3 5365-6, CMP, 6-3, #### [facility] ([id number]) [address], [address] [place] [address] Bilirubin [Mass/Vol] 0.7 mg/dL Normal 0.3-1.2 [facility] Comment on above: Performed By: #### 3 5365-6, CMP, 3016-3, #### [facility] ([id number]) [address], [address] [place] [address] Calcium [Mass/Vol] 8.8 mg/dL Normal 8.5-10.5 [facility] Comment on above: Performed By: #### 3 5365-6, CMP, 3016-3, 80380-1 #### [facility] ([id number]) [address], [address] [place] [address] Chloride [Moles/Vol] 106 mmol/L Normal 98-109 [facility] Comment on above: Performed By: #### 3 5365-6, [facility], 3015-3, #### [facility] ([id number]) [address], [address] [place] [address] CO2 [Moles/Vol] 27 mmol/L Normal 22-32 [facility] Comment on above: Performed By: #### 3 5365-6, [facility], 3015-3, #### [facility] ([id number]) [address], [address] [place] [address] Creatinine [Mass/Vol] 0.60 mg/dL Normal 0.40-1.00 [facility] Comment on above: Result Comment: METH OD TRACEABLE TO IDMS STANDARD Performed By: #### 3 5365-6, [facility], 3015-3, #### [facility] ([id number]) [address], [address] [place] [address] eGFR (CKD-EPI) NON-RACE DEPENDENT >90 Normal >59 [facility] Comment on above: Result Comment: Reported eGFR is based on the CKD-EPI 2020 equation that does not use a race coefficient. Performed By: #### 3 5365-6, [facility], 3015-3, #### [facility] ([id number]) [address] [place] [address] Glucose [Mass/Vol] 79 mg/dL Normal 65-99 [facility] Comment on above: Performed By: #### 3 5365-6, [facility], 3015-3, 50103-0 #### [facility] ([id number]) [address], [address] [place] [address] Potassium [Moles/Vol] 3.8 mmol/L Normal 3.5-5.0 [facility] Comment on above: Performed By: #### 3 5365-6, [facility], 3016-3, #### [facility] ([id number]) [address], [address] [place] [address] Protein [Mass/Vol] 6.4 g/dL Normal 6.0-8.0 [facility] Comment on above: Performed By: #### 3 5365-6, CMP, 3016-3, 46277-4 #### [facility] ([id number]) [address], [address] [place] [address] Sodium [Moles/Vol] 141 mmol/L Normal 134-146 [facility] Comment on above: Performed By: #### 3 5365-6, [facility], 6-3, #### [facility] ([id number]) [address], [address] [place] [address] Urea nitrogen [Mass/Vol] 11 mg/dL Normal 5-23 [facility] Comment on above: Performed By: #### 3 5365-6, [facility], 6-3, 95988-3 #### [facility] ([id number]) [address], [address] [place] [address] MAGNESIUMon 11-16-2023 Magnesium [Mass/Vol] 1.8 mg/dL Normal 1.8-2.6 [facility] Comment on above: Performed By: #### 3 5365-6, CMP, 3016-3, #### [facility] ([id number]) [address], [address] [place] [address] TSH Qnon 11-16-2023 TSH 0.19 uIU/mL Low 0.49-4.67 [facility] Comment on above: Performed By: #### 3 5365-6, CMP, 3016-3, #### [facility] ([id number]) [address], [address] [place] [address] Vitamin D+Metabolites [Mass/ Vol]on 11-16-2023 VITAMIN D 25 HYD TOT 65.7 ng/mL Normal 30-100 [facility] Comment on above: Result Comment: Vitamin D status 25 [place] Vitamin D Deficiency <20 ng/mL Insufficiency 20-29 ng/mL Sufficiency 30-100 ng/mL Toxicity >100 ng/mL NOTE: A pediatric reference range has not been established by the public health teacher of this kit. The [place] [employer] recommends a Vitamin D level of = or >20ng/mL in infants and children. Performed By: #### 3 5365-6, [facility], 3016-3, 77478-9 #### [facility] ([id number]) [address] [place] [address], [address] [place] [address] CBC AUTO DIFFon 03-13-2023 BASO # 0.0 103/ul Normal 0.0-0.1 [facility] Comment on above: Performed By: #### C BC #### [facility] [address] [address] [address] Froy Calderón Basophils/100 WBC (Bld) 0.6 % Normal 0.2-2.0 [facility] Comment on above: Performed By: #### C BC #### [facility] [address] [address] [address] Froy Calderón EO # 0.3 103/ul Normal 0.0-0.7 [facility] Comment on above: Performed By: #### C BC #### [facility] [address] [address] [address] Froy Calderón Eosinophils/100 WBC (Bld) 3.9 % Normal 0.9-7.0 [facility] Comment on above: Performed By: #### C BC #### [facility] [address] [address] [address] Froy Calderón Erythrocyte distribution width (RBC) [Ratio] 12.0 % Normal 11.0-15.0 [facility] Comment on above: Performed By: #### C BC #### [facility] [address] [address] [address] Froy Calderón Hematocrit (Bld) [Volume fraction] 38.6 % Normal 36.0-48.0 [facility] Comment on above: Performed By: #### C BC #### [facility] [address] [address] [address] Froy Calderón Hemoglobin (Bld) [Mass/Vol] 12.9 g/dL Normal 12.0-16.0 [facility] Comment on above: Performed By: #### C BC #### [facility] [address] [place] [address] Dr. Froy Calderón IG # 0.02 10e3/ul Normal 0.00-0.03 [facility] Comment on above: Performed By: #### C BC #### [facility] [address] [place] [address] Dr. Froy Calderón IG % 0.3 % Normal 0.0-0.5 [facility] Comment on above: Performed By: #### C BC #### [facility] [address] [place] [address] Dr. Froy Calderón LYMPH # 1.8 103/ul Normal 1.2-3.8 [facility] Comment on above: Performed By: #### C BC #### [facility] [address] [place] [address] Dr. Froy Calderón Lymphocytes/100 WBC (Bld) 26.5 % Normal 20.5-60.0 [facility] Comment on above: Performed By: #### C BC #### [facility] [address] [place] [address] Dr. Froy Calderón MANUAL DIFF REQ NO Normal [facility] Comment on above: Performed By: #### C BC #### [facility] [address] [place] [address] Dr. Froy Calderón MCH (RBC) [Entitic mass] 31.3 pg Normal 26.7-34.0 [facility] Comment on above: Performed By: #### C BC #### [facility] [address] [address] [address] Froy Calderón MCHC (RBC) [Mass/Vol] 33.4 g/dL Normal 29.9-35.2 [facility] Comment on above: Performed By: #### C BC #### [facility] [address] [address] [address] Froy Calderón MCV (RBC) [Entitic vol] 93.7 fL Normal 81.0-99.0 [facility] Comment on above: Performed By: #### C BC #### [facility] [address] [address] [address] Froy Calderón MONO # 0.6 103/ul Normal 0.3-0.8 [facility] Comment on above: Performed By: #### C BC #### [facility] [address] [place] [address] Dr. Froy Calderón Monocytes/100 WBC (Bld) 8.1 % Normal 1.7-12.0 [facility] Comment on above: Performed By: #### C BC #### [facility] [address] [place] [address] Dr. Froy Calderón NEUT # 4.2 103/ul Normal 1.4-6.5 [facility] Comment on above: Performed By: #### C BC #### [facility] [address] [place] [address] Dr. Froy Calderón Neutrophils/100 WBC (Bld) 60.6 % Normal 43.0-75.0 [facility] Comment on above: Performed By: #### C BC #### [facility] [address] [place] [address] Dr. Froy Calderón Platelet mean volume (Bld) [Entitic vol] 9.2 fL Critically low 9.5-13.5 [facility] Comment on above: Performed By: #### C BC #### [facility] [address] [place] [address] Dr. Froy Calderón PLT 226 103/ul Normal 150-450 [facility] Comment on above: Performed By: #### C BC #### [facility] [address] [address] [address] Froy Calderón RBC 4.12 106/ul Critically low 4.20-5.[address] [facility] Comment on above: Performed By: #### C BC #### [facility] [address] [place] [address] Dr. Froy Calderón WBC 7.0 103/ul Normal 4.0-11.0 [facility] Comment on above: Performed By: #### C BC #### [facility] [address] [place] [address] Dr. Froy Calderón FREE T4on 03-13-2023 Free T4 [Mass/Vol] 0.96 ng/dL Normal 0.76-1.46 [facility] Comment on above: Performed By: #### F T4 #### [facility] [address] [place] [address] Dr. Froy Calderón GLYCOHEMOGLOBIN A1Con 2022 ADA RECOMMENDATION SEE BELOW Normal [facility] Comment on above: Result Comment: ADA RECOMMENDED LIMIT 4.0 - 6.0 ADA THERAPEUTIC TARGET < 7.0 ACTION SUGGESTED > 7.0 Performed By: #### A 1C #### [facility] [address] [place] [address] Dr. Froy Calderón Glucose [Mass/Vol] 91 mg/dL Normal [facility] Comment on above: Performed By: #### A 1C #### [facility] [address] [place] [address] Dr. Froy Calderón HbA1c (Bld) [Mass fraction] 4.8 % Normal 4.5-6.2 [facility] Comment on above: Performed By: #### A 1C #### [facility] [address] [place] [address] Dr. Froy Calderón TSHon 03-13-2023 TSH 5.367 uIU/mL Critically high 0.358-3.740 [facility] Comment on above: Performed By: #### T SH #### [facility] [address] [place] [address] Dr. Froy Calderón US PELVIS AND TRANSVAGon [...] by: NATALIE KHAN Date: 2023-02-19 09:20 Normal [facility] PAP ACOG PANEL 2: 30 to 65on 01-31-2023 . . Normal [facility] Comment on above: Result Comment: Perf ormed at: WB Performed By: #### 4 [id number] #### [facility] [address] [address] [address] Froy Calderón Age Gdln ACOG Testing 30-65 Normal [facility] Comment on above: Performed By: #### 4 [id number] #### [facility] [address] [address] [address] Froy Calderón DIAGNOSIS: Comment Normal [facility] Comment on above: Result Comment: NEGA TIVE FOR INTRAEPITHELIAL LESION OR MALIGNANCY. Performed at: WB Performed By: #### 4 [id number] #### [facility] [id number] Froy Calderón HPV Aptima Negative Normal Negative [facility] Comment on above: Result Comment: This nucleic acid amplification test detects fourteen high-risk HPV types (16,18,31,33,35,39,45,51,52,56,58,59,66,68) without differentiation. Performed at: =G Performed By: #### 4 [id number] #### [facility] [address] [place] [address] Dr. Froy Calderón HPV Genotype Reflex Comment Normal [facility] Comment on above: Result Comment: Crit eria not met, HPV Genotype not performed. Performed at: WB Performed By: #### 4 [id number] #### [facility] [address] [place] [address] Dr. Froy Calderón Methodology: Comment Normal [facility] Comment on above: Result Comment: This liquid based ThinPrep(R) pap test was screened with the use of an image guided system. Performed at: WB Performed By: #### 4 [id number] #### [facility] [address] [place] [address] Dr. Froy Calderón Note: Comment Normal [facility] Comment on above: Result Comment: The Pap smear is a screening test designed to aid in the detection of premalignant and malignant conditions of the uterine cervix. It is not a diagnostic procedure and should not be used as the sole means of detecting cervical cancer. Both false-positive and false-negative reports do occur. . Performed at: WB Performed By: #### 4 [id number] #### [facility] [address] [place] [address] Dr. Froy Calderón Performed by: Comment Normal [facility] Comment on above: Result Comment: Racheal Villatoro [employer] Performed at: WB Performed By: #### 4 [id number] #### [facility] [address] [place] [address] Dr. Froy Calderón Specimen adequacy: Comment Normal [facility] Comment on above: Result Comment: Sati sfactory for evaluation. Endocervical and/or squamous metaplastic cells (endocervical component) are present. Performed at: WB Performed By: #### 4 [id number] #### [place] [facility] [address] [place] [address] Dr. Froy Calderón Cytology Cervical or vaginal smear or scraping studyon 2023 [facility] PREG QUANT HCGon 12-03-2022 HCG QUANT <1 Normal [facility] Comment on above: Performed By: #### P REGQNT #### [facility] [address] [address] [address] Froy Calderón HCG RANGE SEE BELOW Normal [facility] Comment on above: Result Comment: 5-50 0.2-1 WEEK 50-500 1-2 WEEKS 100-5,000 2-3 WEEKS 500-10,000 3-4 WEEKS 1,000-50,000 4-5 WEEKS 10,000-100,000 5-6 WEEKS 15,000-200,000 6-8 WEEKS 10,000-100,000 2-3 MONTHS Performed By: #### P REGQNT #### [facility] [address] [address] [address] Froy Calderón Basic Metabolic Panelon 09-0 Anion gap [Moles/Vol] 10 mmol/L 9 - 17 mmol/L [employer] Calcium [Mass/Vol] 8.4 mg/dL Low 8.6 - 10. 4 mg/dL [employer] Chloride [Moles/Vol] 107 mmol/L 98 - 10 7 mmol/L [employer] CO2 [Moles/Vol] 21 mmol/L 20 - 31 mmol/L [employer] Creatinine [Mass/Vol] 0.61 mg/dL 0.5 - 0.9 mg/dL [employer] GFR >60 60 - PI NF mL/min [employer] GFR Non- >60 60 - PINF mL/min [employer] GFR/1.73 sq M.predicted MDRD (S/P/Bld) [Vol rate/Area] [employer] Comment on above: Average GFR for 20-2 9 years old: 116 mL/min/1.73sq m Chronic Kidney Disease: <60 mL/min/1.73sq m Kidney failure: <15 mL/min/1.73sq m eGFR calculated using average adult body mass. Additional eGFR calculator available at: http://www.Zafgen.[employer]/multiple_crcl_2011.htm Glucose [Mass/Vol] 107 mg/dL High 70 - 99 mg/dL [facility] Interpretation and review of laboratory results Abnormal [facility] Potassium [Moles/Vol] 5.0 mmol/L 3.7 - 5.3 mmol/L [facility] Sodium [Moles/Vol] 138 mmol/L 135 - 144 mmol/L [facility] Urea nitrogen (BldV) [Mass/Vol] 7 mg/dL 6 - 20 mg/dL [facility] CBCon 07-04-2022 Hematocrit (Bld) [Volume fraction] 39.8 % 36.3 - 47.1 % [facility] Hemoglobin (Bld) [Mass/Vol] 13.4 g/dL 11.9 - 15.1 g/dL [facility] Interpretation and review of laboratory results Abnormal [facility] MCH (RBC) [Entitic mass] 30.1 pg 25.2 - 33.5 pg [facility] MCHC (RBC) [Mass/Vol] 33.7 g/dL 28.4 - 34.8 g/dL [facility] MCV (RBC) [Entitic vol] 89.4 fL 82.6 - 102.9 fL [facility] NRBC Automated 0.0 0.0 per 100 WBC [facility] Platelet distribution width (Bld) [Ratio] 11.6 % Low 11.8 - 14.4 % [facility] Platelet mean volume (Bld) [Entitic vol] 9.6 fL 8.1 - 13.5 fL [facility] Platelets (Bld) [#/Vol] 217 10*3/uL [facility] RBC (Bld) [#/Vol] 4.45 10*6/uL 3.95 - 5.1 1 m/uL [facility] WBC (Bld) [#/Vol] 13.6 10*3/uL High [facility] Basic Metabolic Panelon Anion gap [Moles/Vol] 14 mmol/L 9 - 17 mmol/L [facility] Calcium [Mass/Vol] 8.8 mg/dL 8.6 - 10. 4 mg/dL [facility] Chloride [Moles/Vol] 103 mmol/L 98 - 10 7 mmol/L [facility] CO2 [Moles/Vol] 18 mmol/L Low 20 - 31 mmol/L [facility] Creatinine [Mass/Vol] 0.66 mg/dL 0.5 - 0.9 mg/dL [facility] GFR >60 60 - PI NF mL/min [facility] GFR Non- >60 60 - PINF mL/min [facility] GFR/1.73 sq M.predicted MDRD (S/P/Bld) [Vol rate/Area] [facility] Comment on above: Average GFR for 20-2 9 years old: 116 mL/min/1.73sq m Chronic Kidney Disease: <60 mL/min/1.73sq m Kidney failure: <15 mL/min/1.73sq m eGFR calculated using average adult body mass. Additional eGFR calculator available at: http://www.Milabra/multiple_crcl_2012.htm Glucose [Mass/Vol] 126 mg/dL High 70 - 99 mg/dL [facility] Interpretation and review of laboratory results Abnormal [facility] Potassium [Moles/Vol] 4.3 mmol/L 3.7 - 5.3 mmol/L [facility] Sodium [Moles/Vol] 135 mmol/L 135 - 144 mmol/L [facility] Urea nitrogen (BldV) [Mass/Vol] 11 mg/dL 6 - 20 mg/dL [facility] CBC without Diffon 2 Hematocrit (Bld) [Volume fraction] 46.4 % 36.3 - 47.1 % [facility] Hemoglobin (Bld) [Mass/Vol] 15.2 g/dL High 11.9 - 15.1 g/dL [facility] Interpretation and review of laboratory results Abnormal [facility] MCH (RBC) [Entitic mass] 29.9 pg 25.2 - 33.5 pg [facility] MCHC (RBC) [Mass/Vol] 32.8 g/dL 28.4 - 34.8 g/dL [facility] MCV (RBC) [Entitic vol] 91.2 fL 82.6 - 102.9 fL [facility] NRBC Automated 0.0 0.0 per 100 WBC [facility] Platelet distribution width (Bld) [Ratio] 11.9 % 11.8 - 14.4 % [facility] Platelet mean volume (Bld) [Entitic vol] 9.4 fL 8.1 - 13.5 fL [facility] Platelets (Bld) [#/Vol] 232 10*3/uL [facility] RBC (Bld) [#/Vol] 5.09 10*6/uL 3.95 - 5.1 1 m/uL [facility] WBC (Bld) [#/Vol] 9.0 10*3/uL [facility] POCT urine pregnancyon 07-03 Beta HCG ( test) Ql (U) Negative NEGATIVE [facility] Comment on above: Specimens with hCG l evels near the threshold of the test (25 mIU/mL) may give a negative or indeterminate result. In such cases, another test should be performed with a new specimen in 48-72 hours. If early is suspected clinically in this setting, correlation with quantitative serum b-hCG level is suggested. [facility] Gastroenterology Office/Clin ic Noteon 03-29-2021 [...] go ahead and order. Electronically signed by ScottadamaMagdalene Perez 03/31/21 10:21 EDT Patient has been taking [...] by Paulie HUFFFaviolaSALLIEMagdalene 04/03/2021 09:24 EDT Normal [facility] [place] 02-27-2021 Consent [id number]# 1.00CD:127 [facility] Registrationon 02-27-2021 Registration [id number]# 1.00CD:127 [facility] Vital Signs Date Time Vital Sign Value Performing Clinician Facility 07-01-2025 13:-040 Body height 180.3 cm Joey Jama NP Work Phone: [facility] 07-01-2025 13:22-0400 Body mass index (BMI) [Ratio] 22.18 kg/m2 Joey Jama NP Work Phone: [facility] 07-01-2025 13:22-0400 Body weight 72.12 kg Joey Evita [employer] Work Phone: [facility] 07-01-2025 13:22-0400 Diastolic blood pressure 76 mm[Hg] Joey Evita [employer] Work Phone: [facility] 07-01-2025 13:22-0400 Systolic blood pressure 118 mm[Hg] Joey Evita [employer] Work Phone: [facility] 03-31-2025 14:42-0400 Body mass index (BMI) [Ratio] 23.54 kg/m2 Jake Fe DO Work Phone: [facility] 03-31-2025 14:42-0400 Body weight 76.57 kg Jake Ef DO Work Phone: [facility] 03-31-2025 14:42-0400 Diastolic blood pressure 70 mm[Hg] Jake Fe DO Work Phone: [facility] 03-31-2025 14:42-0400 Systolic blood pressure 112 mm[Hg] Jake Fe DO Work Phone: [facility] 03-09-2025 13:08-0400 Body mass index (BMI) [Ratio] 23.96 kg/m2 Jake Fe DO Work Phone: [facility] 03-09-2025 13:08-0400 Body weight 77.93 kg Jake Fe DO Work Phone: [facility] 03-09-2025 13:08-0400 Diastolic blood pressure 60 mm[Hg] Jake Fe DO Work Phone: [facility] 03-09-2025 13:08-0400 Systolic blood pressure 100 mm[Hg] Jake Fe DO Work Phone: [facility] 12-23-2024 11:51-0500 Body mass index (BMI) [Ratio] 28.09 kg/m2 Jake Fe DO Work Phone: [facility] 12-23-2024 11:51-0500 Body weight 91.35 kg Jake Fe DO Work Phone: [facility] 12-23-2024 11:51-0500 Diastolic blood pressure 82 mm[Hg] Jake Fe DO Work Phone: [facility] 12-23-2024 11:51-0500 Systolic blood pressure 110 mm[Hg] Jake Fe DO Work Phone: [facility] 12-16-2024 10:40-0500 Body mass index (BMI) [Ratio] 27.75 kg/m2 Jake Fe DO Work Phone: [facility] 12-16-2024 10:40-0500 Body weight 90.27 kg Jake Fe DO Work Phone: [facility] 12-16-2024 10:40-0500 Diastolic blood pressure 60 mm[Hg] Jake Fe DO Work Phone: [facility] 12-16-2024 10:40-0500 Systolic blood pressure 110 mm[Hg] Jake Fe DO Work Phone: [facility] 12-02-2024 10:45-0500 Body mass index (BMI) [Ratio] 27.17 kg/m2 Jake Fe DO Work Phone: [facility] 12-02-2024 10:45-0500 Body weight 88.36 kg Jake Fe DO Work Phone: [facility] 12-02-2024 10:45-0500 Diastolic blood pressure 72 mm[Hg] Jake Fe DO Work Phone: [facility] 12-02-2024 10:45-0500 Systolic blood pressure 110 mm[Hg] Jake Fe DO Work Phone: [facility] 11-20-2024 09:56-0500 Body mass index (BMI) [Ratio] 27.66 kg/m2 Ronaldo Mcnulty MD Work Phone: [facility] 11-20-2024 09:56-0500 Body weight 87.45 kg Ronaldo Mcnulty MD Work Phone: [facility] 11-20-2024 09:56-0500 Diastolic blood pressure 78 mm[Hg] Ronaldo Mcnulty MD Work Phone: [facility] 11-20-2024 09:56-0500 Heart rate 86 /min Ronaldo Mcnulty MD Work Phone: [facility] 11-20-2024 09:56-0500 Systolic blood pressure 116 mm[Hg] Ronaldo Mcnulty MD Work Phone: [facility] 11-18-2024 15:49-0500 Body mass index (BMI) [Ratio] 27.06 kg/m2 Jake Fe DO Work Phone: [facility] 11-18-2024 15:49-0500 Body weight 88 kg Jake Fe DO Work Phone: [facility] 11-18-2024 15:49-0500 Diastolic blood pressure 68 mm[Hg] Jake Fe DO Work Phone: [facility] 11-18-2024 15:49-0500 Systolic blood pressure 116 mm[Hg] Jake Fe DO Work Phone: [facility] 11-04-2024 14:47-0500 Body mass index (BMI) [Ratio] 27.03 kg/m2 Jake Fe DO Work Phone: [facility] 11-04-2024 14:47-0500 Body weight 87.91 kg Jake Fe DO Work Phone: [facility] 11-04-2024 14:47-0500 Diastolic blood pressure 70 mm[Hg] Jake Fe DO Work Phone: [facility] 11-04-2024 14:47-0500 Systolic blood pressure 120 mm[Hg] Jake Fe DO Work Phone: [facility] 10-22-2024 11:17-0500 Body mass index (BMI) [Ratio] 26.33 kg/m2 Jake Fe DO Work Phone: [facility] 10-22-2024 11:17-0500 Body weight 85.64 kg Jake Fe DO Work Phone: [facility] 10-22-2024 11:17-0500 Diastolic blood pressure 70 mm[Hg] Jake Fe DO Work Phone: [facility] 10-22-2024 11:17-0500 Systolic blood pressure 110 mm[Hg] Jake Fe DO Work Phone: [facility] 09-29-2024 09:25-0500 Body mass index (BMI) [Ratio] 25.8 kg/m2 Jake Fe DO Work Phone: [facility] 09-29-2024 09:25-0500 Body weight 83.92 kg Jake Fe DO Work Phone: [facility] 09-29-2024 09:25-0500 Diastolic blood pressure 72 mm[Hg] Jake Fe DO Work Phone: [facility] 09-29-2024 09:25-0500 Systolic blood pressure 102 mm[Hg] Jake Fe DO Work Phone: [facility] 09-01-2024 11:46-0500 Body mass index (BMI) [Ratio] 24.69 kg/m2 Jake Fe DO Work Phone: [facility] 09-01-2024 11:46-0500 Body weight 80.29 kg Jake Fe DO Work Phone: [facility] 09-01-2024 11:46-0500 Diastolic blood pressure 60 mm[Hg] Jake Fe DO Work Phone: [facility] 09-01-2024 11:46-0500 Systolic blood pressure 100 mm[Hg] Jake Fe DO Work Phone: [facility] 08-03-2024 09:04-0400 Body mass index (BMI) [Ratio] 23.85 kg/m2 Katherine Bridges PA Work Phone: [facility] 08-03-2024 09:04-0400 Body weight 77.56 kg Katherine Bridges PA Work Phone: [facility] 08-03-2024 09:04-0400 Diastolic blood pressure 72 mm[Hg] Katherine Bridges PA Work Phone: [facility] 08-03-2024 09:04-0400 Systolic blood pressure 118 mm[Hg] Katherine Bridges PA Work Phone: [facility] 07-07-2024 09:24-0400 Body mass index (BMI) [Ratio] 22.59 kg/m2 Jake Fe DO Work Phone: [facility] 07-07-2024 09:24-0400 Body weight 73.48 kg Jake Fe DO Work Phone: [facility] 07-07-2024 09:24-0400 Diastolic blood pressure 60 mm[Hg] Jake Fe DO Work Phone: [facility] 07-07-2024 09:24-0400 Systolic blood pressure 110 mm[Hg] Jake Fe DO Work Phone: [facility] 07-04-2022 11:11-0400 Body temperature 99.3 [degF] Bret [facility]zel [facility] 07-04-2022 11:11-0400 Diastolic blood pressure 75 mm[Hg] Bret Wetzel DO Work Phone: [facility] [employer] 07-04-2022 11:11-0400 Heart rate 63 /min Bret Wetzel DO Work Phone: [facility] [employer] 07-04-2022 11:11-0400 Respiratory rate 16 /min Bret Wetzel DO [facility] 07-04-2022 11:11-0400 SaO2% (BldA) [Mass fraction] 99 % Bret Wetzel DO Work Phone: [employer] 07-04-2022 11:11-0400 Systolic blood pressure 141 mm[Hg] Bret Wetzel DO Work Phone: [facility] [employer] 07-03-2022 09:50-0400 Body height 177.8 cm Bret Wetzel [employer] Work Phone: [employer] 07-03-2022 09:50-0400 Body mass index (BMI) [Ratio] 38.17 kg/m2 Bret Wetzel [employer] Work Phone: [employer] 07-03-2022 09:50-0400 Body weight 120.66 kg Bret Wetzel [employer] Work Phone: [employer] Encounters Encounter Date Encounter Type Care Provider Facility Start: 07-01-2025 End: 07-01-2025 Office outpatient visit 15 minutes Joey Jama [employer] Work Phone: [facility] Comment on above: Mood changes (Primar y Dx); Post depression ; anxiety (HHS-HCC); Intrauterine device surveillance Start: 07-01-2025 End: 07-01-2025 ambulatory JOEY JAMA Not Available Start: 03-31-2025 End: 03-31-2025 Patient encounter procedure Jake Fe DO Work Phone: [facility] Comment on above: Encounter for insert ion of Mirena IUD Start: 03-31-2025 End: 03-31-2025 ambulatory JAKE FE Not Available Start: 03-09-2025 End: 03-09-2025 Bamboo flowsheet Jake Fe DO Work Phone: [facility] Start: 03-09-2025 End: 03-09-2025 Bamboo flowsheet Jake Fe DO Work Phone: [facility] Start: 03-09-2025 End: 03-09-2025 Office outpatient visit 15 minutes Jake Fe DO Work Phone: [facility] Comment on above: Pre-operative exam; Request for sterilization; Menorrhagia with regular cycle Start: 03-09-2025 End: 03-09-2025 Preprocedural examination done Jake Fe DO Work Phone: [facility] Work Phone: Start: 03-09-2025 End: 03-09-2025 ambulatory JAKE FE Not Available Start: 02-11-2025 End: 02-11-2025 Office outpatient visit 15 minutes Jake Fe DO Work Phone: [facility] Comment on above: 6 weeks f ollow-up Start: 02-11-2025 End: 02-11-2025 ambulatory JAKE FE Not Available Start: 12-26-2024 End: 12-26-2024 Clinisync Result Encounter Jake Fe DO Work Phone: [facility] Unsolicited Start: 12-26-2024 End: 12-26-2024 Clinisync Result Encounter Jake Fe DO Work Phone: [facility] Unsolic[facility] Start: 12-25-2024 End: 12-25-2024 Clinisync Result Encounter Jake Fe DO Work Phone: [facility] Unsolic[facility] Start: 12-25-2024 End: 12-25-2024 Clinisync Result Encounter Jake Fe DO Work Phone: [facility] Unsolic[facility] Start: 12-23-2024 End: 12-23-2024 Bamboo flowsheet Jake [...] gestation o f ; Third trimester Start: 12-23-2024 End: 12-23-2024 ambulatory JAKE FE Not Available Start: 12-17-2024 End: 12-17-2024 Clinisync Result Encounter [...] Mcnulty MD Work Phone: [facility] Comment on above: H/O gastric sleeve [...] Start: 11-11-2024 End: [facility] Start: 11-04-2024 End: 11-04-2024 Office outpatient [...] 08-26-2024 Emergency department patient visit ROGER Velázquez [facility] Start: 08-15-2024 End: 08-15-2024 External Result Encounter Jake Fe DO Work Phone: [facility]solic[facility] Start: 08-15-2024 End: 08-15-2024 External Result Encounter Jake Fe DO Work Phone: [facility] Start: 08-15-2024 End: [facility] Start: 08-03-2024 End: 08-03-2024 Bamboo flowsheet [...] 08-03-2024 End: 08-03-2024 Patient encounter procedure Katherine Bridges PA Work Phone: [facility] Start: 08-03-2024 End: 08-03-2024 ambulatory KATHERINE BRIDGES Not Available Start: 07-18-2024 End: 07-18-2024 External Result Encounter Jake Fe DO Work Phone: [facility] External Department Unsolicited Start: 07-18-2024 End: 07-18-2024 External Result Encounter Jake Fe DO Work Phone: [facility] External Department Unsolicited Start: 07-18-2024 End: 07-18-2024 ambulatory JAKE R FE [facility] Start: 07-13-2024 End: 07-13-2024 Orders Only Jake R Fe DO Work Phone: [facility] Comment on above: Hypothyroidism, unsp ecified Start: 07-07-2024 End: 07-07-2024 Bamboo flowsheet Jake Fe DO Work Phone: [facility] Start: 07-07-2024 End: 07-07-2024 Bamboo flowsheet Jaek Fe DO Work Phone: [facility] Start: 07-07-2024 End: 07-07-2024 Office outpatient visit 15 minutes Jake Fe DO Work Phone: [facility] Comment on above: 13 weeks gestation o f ; Gastroesophageal reflux in Start: 07-07-2024 End: 07-07-2024 ambulatory JAKE FE Not Available Start: 06-20-2024 End: 06-20-2024 External Result Encounter Jake Fe DO Work Phone: [facility] External Department Unsolicited Start: 06-20-2024 End: 06-20-2024 External Result Encounter Jake Fe DO Work Phone: [facility]solic[facility] Start: 06-20-2024 End: 06-20-2024 ambulatory JAKE Eber [facility] Start: 06-06-2024 End: 06-06-2024 [facility] Start: 06-06-2024 End: 06-06-2024 ambulatory JAKE Eber [facility] Start: 05-26-2024 End: 05-27-2024 Emergency department patient visit ROGER Velázquez JONAH [facility] Start: 05-14-2024 End: 05-14-2024 ambulatory JAKE Eber [facility] Start: 05-11-2024 End: 05-11-[address] [facility] Start: 05-08-2024 End: 05-08-[address] [facility] Start: 05-06-2024 End: 05-06-[address] [facility] Start: 05-01-2024 End: 05-01-[address] [facility] Eber 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; Personal history of other diseases of the female genital tract Start: 12-13-2023 End: 12-13-2023 ambulatory [facility] Start: 11-27-2023 End: 11-27-2023 ambulatory BRET WETZEL [facility] Start: 11-16-2023 End: 11-16-2023 ambulatory [facility] Start: 03-13-2023 End: 03-14-[address] [...] present Start: 04-27-2021 ambulatory Chayo Fofana MD Facility:[facility] Procedures Date Procedure Procedure Detail Performing Clinician Start: 03-31-2025 Urine test visual color cmprsn meths Jake Fe DO Work Phone: Start: 03-31-2025 IUD INSERTION Jake Graham io DO Work Phone: Start: 03-09-2025 Urnls dip stick/tabl et rgnt non-auto w/o micrscp Jake Fe DO Work Phone: Start: 12-26-2024 ALL CBC WITH AUTO DIFF Jake Fe DO Work Phone: Start: 12-25-2024 HMHP CBC WITH PLATEL ET NO DIFFERENTIAL Jake Fe DO Work Phone: Start: 12-23-2024 US OB GROWTH Jake Fazi [...] stick/tabl et rgnt non-auto w/o micrscp Jake [employer] Work Phone: Start: 08-15-2024 Assay of thyroid stimulating hormone tsh Jake [employer] Work Phone: Start: 08-03-2024 URETHRITIS/DISCHARGE PLUS VAGINITIS (HTRX) Katherine VELAZCO Work Phone: Start: 08-03-2024 Urnls dip stick/tabl et rgnt non-auto w/o micrscp Katherine VELAZCO Work Phone: Start: 07-18-2024 Assay of thyroid stimulating hormone tsh Jakebaldev [employer] Work Phone: Start: 07-07-2024 Urnls dip stick/tabl et rgnt non-auto w/o micrscp Jake [employer] Work Phone: Start: 06-20-2024 Thyrotropin [Units/v olume] in Serum or Plasma Jake [employer] Work Phone: Start: 2023 Microscopic observat ion [Identifier] in Cervix by Cyto stain Jake [employer] Work Phone: Start: 2023 Cytp cerv/vag auto t hin layer prep mnl screen Jake [employer] Phone: Start: 07-04-2022 Basic metabolic pane l calcium total Bret Velázquez Kaleb [employer] Work Phone: Start: 07-03-2022 Basic metabolic pane l calcium total Bret Eber Wetzel [employer] Work Phone: Start: 07-03-2022 End: 07-03-2022 Laps gstrc rstrictiv px longitudinal gastrectomy Bret Velázquez [employer] Work Phone: Start: 07-03-2022 Urine test visual color cmprsn meths Bret Velázquez [employer] Work Phone: Start: 06-21-2021 Microscopic observat ion [Identifier] in Cervix by Cyto stain Jake Miramontes DO Work Phone: Plan of Treatment Date Care Activity Detail Author Start: 01-25-2028 Screening for malign ant neoplasm of cervix [facility] Start: 2026 Screening for malign ant neoplasm of cervix Pap Smear [facility] Start: 11-20-2025 Adult BMI Screening Adult BMI Screen ing [facility] Start: 11-20-2025 Tobacco Screening Tobacco Screening [facility] Start: 07-15-2025 End: 07-15-2025 Patient encounter procedure 07/15/2025 8:10 AM EDT Office Visit [facility] [address] [place] [id number] Jake Miramontes, DO [address] [place] [address] [facility] Start: 06-28-2025 Influenza [facility] Start: 06-06-2025 Adult BMI Screening Adult BMI Screen ing [facility] Start: 05-26-2025 Tobacco Screening Tobacco Screening [facility] Start: 04-15-2025 End: 04-15-2025 Patient encounter procedure 04/15/2025 11:40 AM EDT Office Visit [facility] [address] [place] [id number] Jake Miramontes, DO [address] [place] [address] [facility] Start: 04-12-2025 End: 04-12-2025 Patient encounter procedure 04/12/2025 3:00 PM EDT Office Visit [facility] [address] [place] [id number] Jake Miramontes, DO [address] [place] [address] [facility] Start: 03-09-2025 End: 03-09-2025 Patient encounter procedure 03/09/2025 1:00 PM EDT Consult [facility] [address] [facility] [place] [phone] Jake Miramontes, DO [address] [place] [address] Arrived [facility] Comment on above: Arrived Start: 03-04-2025 End: 03-04-2025 Patient encounter procedure 03/04/2025 10:30 AM EDT Office Visit [facility] [address] [place] [phone] Jake Miramontes, DO [address] [place] [address] [facility] Start: 12-30-2024 End: 12-30-2024 Patient encounter procedure 12/30/2024 1:10 PM EST Routine [facility] [address] [facility] [place] [phone] Jake Miramontes, DO [address] [place] [address] [facility] Start: 12-23-2024 End: 12-23-2024 Patient encounter procedure [facility] Comment on above: Arrived Start: 12-16-2024 End: 12-16-2025 CULTURE, GROUP B STREP WITH SUSCEPTIBLITY CULTURE, GROUP B STREP WITH SUSCEPTIBLITY Lab Routine Third trimester Expected: 12/16/2024, Expires: 12/16/2025 [facility] Work Phone: Comment on above: [...] 11-01-2024 Adult BMI Screening Adult BMI Screen [facility] Start: 10-22-2024 End: 10-22-2024 Patient [...] EST Ancillary Procedure [facility] [address] [address] [facility] Start: 09-01-2024 End: 09-01-2024 Patient encounter procedure 09/01/2024 9:20 AM EST Routine [facility] [address] [id number] Jake Miramontes, DO [address] [place], [place] [id number] [facility] Start: 08-03-2024 End: 09-03-2024 Alpha fetoprotein, maternal Alpha fetoprotein, maternal Lab Routine Screening, , for anatomic survey Expected: 08/03/2024 (Approximate), Expires: 09/03/2024 [facility] Work Phone: Comment on above: [...] Routine Hypothyroidism, unspecified Expected: 07/13/2024, Expires: 07/13/2025 [employer] Work Phone: Comment on above: Expected: 07/13/2024 , Expires: 07/13/2025 Start: 07-07-2024 End: 07-07-2024 Patient encounter procedure [facility] Comment on above: Arrived Start: 06-28-2024 Influenza vaccination [facility] Start: 04-17-2024 Screening for malign ant neoplasm of cervix [facility] Start: 12-18-2023 End: 12-18-2024 Antimullerian hormone (AMH) Antimullerian hormone (AMH) Lab Routine Female infertility associated with anovulation Personal history of other diseases of the female genital tract Expected: 12/18/2023, Expires: 12/18/2024 [facility] Work Phone: Comment on above: Expected: 12/18/2023 , Expires: 12/18/2024 Start: 12-06-2023 [facility] Start: 06-28-2023 Influenza vaccination Influenza Vacc [facility] [email or web address] [facility] Start: 08-07-2022 End: 08-07-2022 Patient encounter procedure 08/07/2022 Office Visit Bariatrics Dottie Diaz, RESEARCH DIRECTOR - FUELS SALES REPRESENTATIVE [address] [place] [address] [facility] Start: 07-12-2022 End: 07-12-2022 Patient encounter procedure 07/12/2022 Office Visit Bariatrics Bret Wetzel, DO [address] [facility] [place] [address] [employer] [facility] Start: 06-28-2022 Influenza vaccination Flu vaccine (# 1) [facility] [employer] Start: 2014 Screening for malign ant neoplasm of cervix Pap [facility] Start: 01-25-2012 DTaP,Tdap and Td Vaccines (1 - Tdap) DTaP,Tdap and Td Vaccines (1 - Tdap) [facility] Start: 01-25-2012 DTaP/Tdap/Td vaccine (1 - Tdap) DTaP/Tdap/Td vaccine (1 - Tdap) [facility] Start: 2011 Adult BMI Follow Up Plan Adult BMI Follow Up Plan [facility] Start: 2011 Hepatitis C screening Hepatitis C sc reen [facility] Start: 01-25-2008 HIV screening HIV screen [facility] Start: 2005 Depression Screen Depression Screen [facility] Start: 2005 Depression Screening Depression Scre ening [facility] Start: 01-25-2004 DTaP,Tdap and Td Vaccines (6 - Tdap) DTaP,Tdap and Td Vaccines (6 - Tdap) [facility] Start: 1994 Varicella vaccine (1 of 2 - 2-dose childhood series) Varicella vaccine (1 of 2 - 2-dose childhood series) [facility] Start: 1993 COVID-19 Vaccine (#1) COVID-19 Vacci ne (#1) [facility] CHLAMYDIA TRACHOMATI S (GENITO/STI) CHLAMYDIA TRACHOMATIS (GENITO/STI) Lab Routine Exposure to STD Ordered: 08/03/2024 [facility] Comment on above: Ordered: 08/03/2024 Continuous pulse oximetry Pulse oximetry, continuous Respiratory Care Routine Every 4hr until discontinued starting 07/03/2022 [facility] [employer] Phone: Comment on above: Every 4hr until disc ontinued starting 07/03/2022 Neisseria gonorrhoea e DNA [Presence] in Unspecified specimen by NEGRITO with probe detection Neisseria gonorrhea DNA probe, direct Lab Routine Exposure to STD Ordered: 08/03/2024 [facility] Comment on above: Ordered: 08/03/2024 Oxygen therapy [[facility] Data Set] Initiate Oxygen Therapy Protocol Respiratory Care Routine As Needed until discontinued starting 07/03/2022 [facility] [employer] Phone: Comment on above: As Needed until disc ontinued starting 07/03/2022 Spirometry panel Incentive brea metry Respiratory Care Routine Every 2hr while awake until discontinued starting 07/03/2022 [facility] Phone: Comment on above: Every 2hr while awak e until discontinued starting 07/03/2022 SURESWAB(R) ADVANCED VAGINITIS PLUS, TMA SURESWAB(R) ADVANCED VAGINITIS PLUS, TMA Pathology and Cytology Routine Exposure to STD Ordered: 08/03/2024 [employer] Comment on above: Ordered: 08/03/2024 Surgical Pathology Surgical Path ology Lab Routine Obesity, unspecified classification, unspecified obesity type, unspecified whether serious comorbidity present Gastroesophageal reflux disease, unspecified whether esophagitis present Release Upon Ordering for 1 Occurrences starting 07/03/2022 [facility] Phone: Comment on above: Release Upon Orderin g for 1 Occurrences starting 07/03/2022 End: 07-03-2022 SURGICAL PATHOLOGY REPORT SURGICAL PATHOLOGY REPORT Lab Routine Once for 1 Occurrences starting 07/03/2022 until 07/03/2022 [facility] Phone: Comment on above: Once for 1 Occurrenc es starting 07/03/2022 until 07/03/2022 Thyrotropin [Units/volume] in Serum or Plasma TSH Lab Routine 08/15/2024 9:17 AM EDT [employer] Work Phone: Immunizations Immunization Date Immunization Notes Care Provider Fa zenia 06-06-2024 RHO(D) immune globul in- IV or IM Jake Fe DO Work Phone: [employer] 07-11-2011 influenza virus vaccine, unspecified formulation Ajke Fe DO Work Phone: [employer] Payers Date Payer Category Payer Medicaid [id number] 2022 Medicaid [id number] 2021 Unknown [employer] [id number] 2021-Present [phone] [address] [place] [address] [id number]. [id number] 2021 Unknown 1993 Unknown [id number] 2.16.840.1.769836.3.579.2.196 1993 Unknown [id number] 2.16.840.1.414848.3.579.2.593 1993 Unknown [id number] 2.16.840.1.039507.3.579.2.593 1993 Unknown [id number] 2.16.840.1.670452.3.579.2.593 1993 Unknown [id number] 2.16.840.1.460468.3.579.2.593 1993 Unknown [id number] 2.16.840.1.501946.3.579.2.175 1993 Unknown [id number] 2.16.840.1.161535.3.579.2.1286 1993 Unknown [id number] 2.16.840.1.226629.3.579.2.1286 1993 Unknown [id number] 2.16.840.1.173997.3.579.2.1286 1993 Unknown [id number] 2.16.840.1.145865.3.579.2.1286 1993 Unknown [id number] 2.16.840.1.327912.3.579.2.1286 1993 Unknown [id number] 2.16.840.1.172629.3.579.2.1286 1993 Unknown [id number] 2.16.840.1.262892.3.579.2.1286 1993 Unknown [id number] 2.16.840.1.525342.3.579.2.1286 1993 Unknown [id number] 2.16.840.1.919964.3.579.2.1285 1993 Unknown [id number] 2.16.840.1.829386.3.579.2.1285 1993 Unknown [id number] 2.16.840.1.041916.3.579.2.1285 1993 Unknown [id number] 2.16.840.1.236885.3.579.2.1285 1993 Unknown [id number] 2.16.840.1.347627.3.579.2.1285 1993 Unknown [id number] 2.16.840.1.071820.3.579.2.1285 1993 Unknown [id number] 2.16840.1.084165.3.579.2.1285 1993 Unknown [id number] 2.16840.1.305817.3.579.2.1258 1993 Unknown [id number] 2.16840.1.737339.3.579.2.1258 1993 Unknown [id number] 2.16840.1.327009.3.579.2.1258 1993 Unknown [id number] 2.16840.1.392908.3.579.2.1258 1993 Unknown [id number] 2.16840.1.522843.3.579.2.1258 1993 Unknown [id number] 2.16840.1.883367.3.579.2.1258 1993 Unknown [id number] 2.16840.1.874282.3.579.2.1258 1993 Unknown [id number] 2.16840.1.090996.3.579.2.1258 1993 Unknown [id number] 2.16840.1.518595.3.579.2.1258 1993 Unknown [id number] 2.16.840.1.926942.3.579.2.9 1993 Unknown [id number] 2.16.840.1.993418.3.579.2.9 1993 Unknown [id number] 2.16.840.1.635324.3.579.2.9 1993 Unknown [id number] 2.16.840.1.709798.3.579.2.9 1993 Unknown [id number] 2.16.840.1.961531.3.579.2.1259 Social History Date Type Detail Facility Start: 06-15-2022 End: 06-12-2024 Tobacco smoking status PAIS Never smoked tobacco [employer] Start: 06-15-2022 End: 06-12-2024 Tobacco use and exposure Smokeless tobacco non-user [facility] Phone: Start: 07-04-2022 End: 05-26-2024 Alcohol intake Current drinker of alcohol (finding) [facility] Phone: Start: 12-21-2021 History SDOH Alcohol Comment occ [facility] Phone: Start: 1993 Sex Assigned At Not on file [facility] [employer] Phone: Start: 06-08-2022 End: 06-18-2022 Exposure to SARS-CoV-2 (event) Not sure [facility] Phone: Start: 07-30-2024 End: 07-01-2025 Alcoholic beverage intake Ex-drinker (finding) [facility] Start: 06-12-2024 End: 07-07-2024 History of Social function [facility] Start: 06-12-2024 End: 07-07-2024 Tobacco use panel [facility] Start: 01-19-2024 Alcohol Comment occasional [facility] Start: 04-20-2024 [facility] Unknown [facility] Start: 08-05-2019 Alcohol Comment occassionally [facility] Start: 06-02-2015 Sex Female (finding) [facility] Medical Equipment Procedure Code Equipment Code Equipment Origin al Text Equipment Identifier Dates 1 strip by In Vi tro route Daily Use in the morning prior to breakfast, 1 hour after each meal for a total of 4times daily. [id number] Start: 09-29-2024 End: 11-04-2024 1 each by In Vit ro route Daily Use to check FSBS four times daily [id number] Start: 09-29-2024 End: 09-30-2024 USE 1 EACH TO CH ALESSANDRA GLUCOSE 4 TIMES DAILY [id number] Start: 09-30-2024 End: 11-04-2024 Clinical Notes 02-24-2021 to 07-01-2025 Joey Jama, [employer] - 07/01/2025 1:10 PM Isaiah Collazo LPN - 03/31/2025 2:30 PM Isaiah Collazo LPN - 03/09/2025 1:00 PM Romel Awad, [employer] - 02/11/2025 11:00 AM EDTDischarge Instructions Note Date & Type Note Facility 07-01-2025 History of Present illness Narrative Reason for Appointment: Patient ID: Phillip Noriega is a 30 y.o. female who presents [...] Problems Diagnosis Date Noted Positive blood test ([facility]) 04/27/2024 Missed menses 05/05/2024 Encounter for [...] nursing note reviewed. Exam conducted with a emr analyst present. Vitals: Estimated body mass index is 23.54 kg/m as calculated from the following: Height as of 03/13/23: 5' 11 . Weight as of 03/31/25: 168 lb 12.8 oz. BP: No LMP recorded. ASSESSMENT & PLAN ICD-10-CM 1. 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 anxiety ([facility]) O99.345 F41.8 3. Intrauterine device surveillance Z30.431 Pt present to discuss post anxiety/depression and an IUD string check. Pt delivered on 12/25/2024 and stated she has been dealing w/the anxiety since her went back to work after having baby. Pt was prescribed Effexor [address] Miramontes and pt stated she had been on it for a few months and seen no change and has stopped taking it. Pt would like to discuss what other options/medication for her symptoms. Pt stated she gets frustrated w/baby when baby is crying and no chau with child. Pt does not have any suicidal thoughts or thought of harming her baby. 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 Pt had the IUD Mirena inserted on [...] by Glenda Cristina MA on behalf of: Joey Jama NP documented in this encounter [facility] 03-31-2025 History of Present illness Narrative Associated Order(s): IUD Insertion Post-Procedure Diagnose(s): Encounter for insertion of Mirena IUD Reason for Appointment: Patient ID: Phillip Noriega is a 30 y.o. female who presents for IUD insertion Patient presents today for a IUD Insertion appointment. MEDICATIONS Current Outpatient Medications Medication Instructions omeprazole (PriLOSEC) [address] capsule TAKE 1 CAPSULE BY MOUTH IN THE MORNING. TAKE BEFORE MEALS. DO NOT CRUSH OR CHEW. ALLERGIES Allergies Allergen Reactions Latex Itching and Rash Other Reaction(s): Unknown Sulfamethoxazole-Trimethoprim Hives Other Reaction(s): Unknown Hives to face Hives to face PROBLEMS Active Ambulatory Problems Diagnosis Date Noted Positive blood test 04/27/2024 Missed menses 05/05/2024 Encounter for insertion of Mirena IUD 03/31/2025 Resolved Ambulatory Problems Diagnosis Date Noted No Resolved Ambulatory Problems Past Medical History: Diagnosis Date Anxiety Depression (CMS/HCC) Desire for History of miscarriage Obesity (BMI 30-39.9) Pityriasis alba Thyrotoxicosis, unspecified without thyrotoxic crisis or storm (CMS/HCC) HISTORY PAST MEDICAL HISTORY SOCIAL HISTORY Past Medical History: Diagnosis Date Anxiety Depression (CMS/HCC) Desire for History of miscarriage Obesity (BMI 30-39.9) Pityriasis alba Thyrotoxicosis, unspecified without thyrotoxic crisis or storm (CMS/HCC) Social History Tobacco Use Smoking status: Never [...] nursing note reviewed. Exam conducted with a emr analyst present. Vitals: Estimated body mass index is 23.54 kg/m as calculated from the following: Height as of 03/13/23: 5' 11 . Weight as of this encounter: 168 lb 12.8 oz. BP: 112/70 No LMP recorded. ASSESSMENT & PLAN Assessment/Plan Encounter Diagnosis: ICD-10-CM 1. Encounter for insertion of Mirena IUD Z30.430 POCT , urine manually resulted IUD Insertion Performed by: Jake Miramontes DO Authorized by: Jake Miramontes DO Procedure: IUD insertion Consent obtained by patient, parent, or legal power of city attorney - including discussion of procedure risks and benefits, patient questions answered, and patient education provided: yes risk: reasonably certain the patient is not Date/Time of Insertion: 03/31/2025 3:04 PM Immediately prior to procedure a time out was called: no Pelvic exam performed: no Speculum placed in vagina: yes Cervix cleaned and prepped: yes Tenaculum/Allis/Ring Forceps applied to cervix: yes Anesthesia used: no IUD inserted without complications: yes OSM: 52 mg Levonorgestrel 20 MCG/DAY Patient tolerated procedure well: yes Inserted with ultrasound guidance: no Intended removal date: 5 years Insertion comments: IUD Insertion: Patient presents today for an IUD Insertion. Patient is having a Mirena placed and written consent was obtained. Patient was placed in the dorsal lithotomy position with feet in stirrups. A sterile speculum ws placed into the vagina and the cervix was visualized. Cervix was cleansed with betadine and the anterior lip was grasped with ring forceps. Uterus was then gently sounded. New IUD device was gently advanced through the endocervix, toward te uterine fundus. The IUD was then deployed as device was gently removed from the uterus. The IUD strings were cut to the length from external os. All instruments were removed from the vagina. Post-procedure instructions given. All of patients questions were answered and she expressed understanding. Advised to call interim with any questions or concerns. Follow Up: Patient is to return to the office in 4 weeks for a string check. Documented by Tamy Collazo LPN on behalf of: Jake Miramontes DO documented in this encounter [facility] 03-09-2025 History of Present illness Narrative Reason for Appointment: Patient ID: Phillip Noriega is a 30 y.o. female who presents for Pre-op Visit Patient presents today for Pre Op appointment. Patient is scheduled to undergo Da Eric assisted Bilateral Laparoscopic Salpingectomy and Mirena IUD Insertion on 04/02/[address] Miramontes at [facility]. MEDICATIONS Current Outpatient Medications Medication Instructions omeprazole (PriLOSEC) [address] capsule TAKE 1 CAPSULE BY MOUTH IN THE MORNING. TAKE BEFORE MEALS. DO NOT CRUSH OR CHEW. ALLERGIES Allergies Allergen Reactions Latex Itching and Rash Other Reaction(s): Unknown Sulfamethoxazole-Trimethoprim Hives Other Reaction(s): Unknown Hives to face Hives to face PROBLEMS Active Ambulatory Problems Diagnosis Date Noted Positive blood test 04/27/2024 Missed menses 05/05/2024 Resolved Ambulatory Problems Diagnosis Date Noted No Resolved Ambulatory Problems Past Medical History: Diagnosis Date Anxiety Depression (CMS/HCC) Desire for History of miscarriage Obesity (BMI 30-39.9) Pityriasis alba Thyrotoxicosis, unspecified without thyrotoxic crisis or storm (CMS/HCC) HISTORY PAST MEDICAL HISTORY SOCIAL HISTORY Past Medical History: Diagnosis Date Anxiety Depression (CMS/HCC) Desire for History of miscarriage Obesity (BMI 30-39.9) Pityriasis alba Thyrotoxicosis, unspecified without thyrotoxic crisis or storm (CMS/HCC) Social History Tobacco Use Smoking status: Never [...] Respiratory: Negative. Cardiovascular: Negative. Gastrointestinal: Negative. Genitourinary: Positive for menstrual problem. Musculoskeletal: Negative. Skin: Negative. Neurological: Negative. All [...] nursing note reviewed. Exam conducted with a emr analyst present. Vitals: Estimated body mass index is 23.96 kg/m as calculated from the following: Height as of 03/13/23: 5' 11 . Weight as of this encounter: 171 lb 12.8 oz. BP: 100/60 Patient's last menstrual period was 04/06/2024. ASSESSMENT & PLAN ICD-10-CM 1. Pre-operative exam Z01.818 POCT urinalysis dipstick manually resulted POCT , urine manually resulted CANCELED: POCT urinalysis dipstick manually resulted 2. Request for sterilization Z30.2 3. Menorrhagia with regular cycle N92.0 Pre Op: Patient is doing well but has desire for sterilization. I have discussed conservative management vs. surgical management with the patient in detail and patient desires surgical management at this time. Patient has voiced understanding that a Bilateral Salpingectomy is considered to be permanent and patient will undergo Da Eric assisted Bilateral Laparoscopic Salpingectomy with Mirena IUD insertion on 04/02/25. Surgical consents were signed, mmc was reviewed, and patient is to proceed to [facility] OR. Follow Up: Patient is to follow up between 1-2 weeks post op to assess proper healing and recovery from procedure. Documented by Tamy Collazo LPN on behalf of: Jake Miramontes DO documented in this encounter [facility] 02-11-2025 History of Present illness Narrative Reason for Appointment: Patient ID: Phillip Noriega is a 30 y.o. female who presents for 6wk Post Patient presents today for Post Follow Up appointment. and Consult appointment. MEDICATIONS Current Outpatient Medications Medication Instructions ferrous sulfate 325 mg, Oral, Daily with breakfast iron polysaccharides (PROFE) 391.3 mg, Oral, Daily omeprazole (PriLOSEC) [address] capsule TAKE 1 CAPSULE BY MOUTH IN THE MORNING. TAKE BEFORE MEALS. DO NOT CRUSH OR CHEW. omeprazole (PRILOSEC) 20 mg, Oral, Daily before [...] Heart disease Maternal Grandmother G SURGICAL HISTORY Past Surgical History: Procedure Laterality Date SALPINGECTOMY Bilateral REVIEW OF SYSTEMS Review of Systems: Review of Systems All other systems reviewed and are negative. OBJECTIVE Objective: Physical Exam Constitutional: Appearance: Normal [...] nursing note reviewed. Exam conducted with a emr analyst present. Vitals: Estimated body mass index is 28.09 kg/m as calculated from the following: Height as of 03/13/23: 5' 11 . Weight as of 12/23/24: 201 lb 6.4 oz. BP: Patient's last menstrual period was 04/06/2024. ASSESSMENT & PLAN ICD-10-CM 1. 6 weeks follow-up Z39.2 Post Follow Up: Patient is doing well but has no complaints at this time. Patient presents today for 6 week visit. Patient is s/p Vaginal delivery. Patient states spells of good times and feeling down times, but feels its mainly from being at home when spouse is at work. All options were discussed with the patient regarding control options as patient thinks she would like to have her tubes tied . Discussed bilateral salpingectomy, IUD and other forms of control as patient and spouse are not sure if they are done childbearing at this time. Pamphlets given to patient and patient will reach out to office once her and spouse decide what form of control they decide. Follow Up: Patient is to return for annual unless needed otherwise. Documented by Marlys Awad LPN on behalf of: Jake Miramontes DO documented in this encounter [facility] 12-23-2024 History of Present illness Narrative Reason [...] nursing note reviewed. Exam conducted with a emr analyst present. Vitals: Estimated body mass index is [...] Miramontes DO documented in this encounter [facility] 12-02-2024 History of Present illness Narrative Reason [...] nursing note reviewed. Exam conducted with a emr analyst present. Vitals: Estimated body mass index is [...] Miramontes DO documented in this encounter [facility] 11-20-2024 History of Present illness Narrative REASON FOR CONSULTATION: Suspected ventriculomegaly HISTORY OF PRESENT ILLNESS: Phillip Noriega is a pleasant 29 y.o. G two P0 010. at 32w4d due on Estimated Date of Delivery: 01/11/25 . Patient was seen today due to the following 1. Maternal gastric sleeve procedure. Patient had robotic gastric sleeve procedure performed at [facility]. Patient has lost weight. Patient became after [...] changing positions with working out or riding [employer] Visual impairment wears glasses PAST OBSTETRICAL HISTORY: OB History 2 Para 0 Term AB 1 Living SAB 1 IAB Ectopic Multiple Live Births SURGICAL HISTORY: Past Surgical History: Procedure Laterality Date CHOLECYSTECTOMY COLONOSCOPY N/A 11/13/2018 Performed by Emanuel Reagan DO at [facility] EGD N/A 11/13/2018 Performed by Emanuel Reagan DO at [facility] LAPAROSCOPIC GASTRIC BANDING ALLERGIES: Allergies Allergen Reactions [...] taking: Reported on 11/01/2023), Disp: , Rfl: hcqeogsu-oqip-YA-calcium &mins (THERAGRAN-M) 9 mg iron-400 mcg tablet, [...] and the other consultants, we search on epic and all the available care everywhere epic I did review all the imaging studies of the patient available on EMR, ordered by the primary care physician and the other analytics consultant HABITS: Patient activity no restrictions, diet [...] patient is in complete care of her it service technician. Patient does not have any future appointment scheduled with us. Thank you for allowing me to participate in Phillip Noriega . If there any questions please do not hesitate to contact us. Sincerely, RONALDO MCNULTY MD Headache/epigastric pain/blurry vision/swelling? No Cramping/contractions? [place] Asif Abnormal vaginal discharge? No Spotting/vaginal bleeding? Patient reports spotting earlier in , has since resolved Loss or gush of fluid like your water may have broken? No Do you have cats at home? Yes Do you change the litter box (reason: risk of toxoplasmosis)? N/A Genetic testing done this here or other office? No Have you been seen here at [facility] in a previous ? No Recent ER visits or hospitalizations? No Bring blood sugar log or meter with you today? (Please bring them with you for every visit at [facility]) N/A Flu vaccine (Aug-December)? No Any concerns that you would like me to mention to the provider today? No documented in this encounter [employer] 11-18-2024 History of Present illness Narrative Reason [...] nursing note reviewed. Exam conducted with a emr analyst present. Vitals: Estimated body mass index is [...] Miramontes DO documented in this encounter [facility] 11-04-2024 History of Present illness Narrative Reason [...] nursing note reviewed. Exam conducted with a emr analyst present. Vitals: Estimated body mass index is [...] Miramontes DO documented in this encounter [facility] 10-22-2024 History of Present illness Narrative Reason for Appointment: Patient ID: Phillip Noriega is a 29 y.o. female who presents for No chief complaint on file. Patient presents today for Return OB appointment. MEDICATIONS Current Outpatient Medications Medication Instructions Alcohol Swabs (Alcohol Prep Pad) 70 % pads 1 Pad, Topical, Daily, Use four times daily to check FSBS. Blood Glucose Monitoring Suppl (D-GrexIt Glucometer) w/Device kit 1 kit, Does not [...] nursing note reviewed. Exam conducted with a emr analyst present. Vitals: Estimated body mass index is [...] Tamy Collazo LPN on behalf of: Jake Fe, DO documented in this encounter [facility] 09-29-2024 History of Present illness Narrative Reason [...] nursing note reviewed. Exam conducted with a emr analyst present. Vitals: Estimated body mass index is [...] Miramontes DO documented in this encounter [facility] 09-01-2024 History of Present illness Narrative Reason [...] nursing note reviewed. Exam conducted with a emr analyst present. Vitals: Estimated body mass index is [...] Miramontes DO documented in this encounter [facility] 08-03-2024 History of Present illness Narrative Reason [...] nursing note reviewed. Exam conducted with a emr analyst present. Vitals: Estimated body mass index is [...] MORA Jackson documented in this encounter [facility] 07-07-2024 History of Present illness Narrative Reason [...] nursing note reviewed. Exam conducted with a emr analyst present. Vitals: Estimated body mass index is [...] or undercooked meat, and stay away from [facility]. Patient has been consulted regarding any further do's and don'ts of . Patient voiced understanding and all questions and concerns were answered. Orders Placed This Encounter Procedures POCT urinalysis dipstick manually resulted Follow Up: Patient is to return in 4 weeks for routine OB appointment. Documented by Tamy Collazo LPN on behalf of: Jake Miramontes DO documented in this encounter [facility] 07-04-2022 History of Present illness Narrative Patient [...] or 07/03/22 documented in this encounter [facility] Work Phone: 07-04-2022 Hospital Discharge instructions Garrett Corcoran DO - 07/04/2022 8:07 AM EDT Discharge Instructions for Bariatric Surgery You had a Laparoscopic Sleeve Gastrectomy (28611) surgery to treat obesity. Recovery from this [...] scheduled appointment, please call the office at [phone]. Call Your Doctor If Any of the [...] 911 immediately. documented in this encounter [facility] Phone: 02-24-2021 Note Chief Complaint Referral for [...] states she had a colonoscopy performed in [facility] in 2018 as well as [...] are mucoid-like in nature N/V/blood/frequency: Positive nausea Uintah Score: Typically she rates it for although up to 6 with blood MELD Score: Andry IV Score: Previous Labs: She states last blood work was done in 2017 [place] although I currently do not have the [...] areas. Neurologic: Awake, (more content not included)... [facility] Evaluation note Diagnosis S/P laparoscopic sleeve gastrectomy- Primary Obesity, unspecified classification, unspecified obesity type, unspecified whether serious comorbidity present Gastroesophageal reflux disease, unspecified whether esophagitis present documented in this encounter [facility] Work Phone: evaluation note* Diagnosis Well woman exam with routine gynecological exam Routine gynecological examination Exposure to STD Need for maternal serum alpha-protein (MSAFP) screening Second trimester state, incidental 17 weeks gestation of Screening, , for anatomic survey Encounter for anatomic survey documented in this encounter [facility]* Diagnosis 21 weeks gestation of [...] for diabetes mellitus documented in this encounter [facility]* Diagnosis H/O gastric sleeve- Primary [facility]* Diagnosis Third trimester state, incidental 32 weeks gestation of documented in [facility]* Diagnosis Third trimester state, incidental 34 weeks gestation of Excessive growth affecting management of , antepartum, single or unspecified fetus documented in this encounter [facility]* Diagnosis Female infertility associated with anovulation Personal history of other diseases of the female genital tract [facility]* Diagnosis Hypothyroidism, unspecified [facility]* Diagnosis Third trimester state, incidental 36 weeks gestation of Excessive growth affecting management of , antepartum, single or unspecified fetus documented [facility]* Diagnosis 37 weeks gestation of Third trimester state, incidental documented in this encounter [facility]* Diagnosis 6 weeks follow-up documented in this encounter [facility]* Diagnosis Pre-operative exam Unspecified pre-operative examination Request for sterilization Menorrhagia with regular cycle documented in this encounter [facility]* Diagnosis Encounter for insertion of Mirena IUD documented in this encounter [facility]* Diagnosis Mood changes- Primary Unspecified episodic mood disorder Post depression Mental disorders of mother, complicating , childbirth, or the puerperium, unspecified as to episode of care anxiety ([facility]) Intrauterine device surveillance documented in this encounter [facility] Healthcare[facility] of Present illness Narrative* Tamy Collazo, [employer] - 12/16/2024 1:00 PM EST Reason for [...] nursing note reviewed. Exam conducted with a emr analyst present. Vitals: Estimated body mass index is [...] of: Jake Miramontes DO [facility]ructionsNot on filedocumented in this encounterProMer[facility] SystemInstructionsNot on filedocumented in this encounterBar[facility] SystemInstructionsNot on filedocumented in this encounterProMed[facility] Summary Purpose Family History No Family [...] section and content) DATE CREATED AUTHOR [facility]/28/2021 [facility] DATE CREATED AUTHOR AUTHOR'S ORGANIZ ATION 04/27/2021 [facility] DATE CREATED AUTHOR AUTHOR'S ORGANIZ ATION 03/14/2023 [facility] DATE CREATED AUTHOR AUTHOR'S ORGANIZ ATION 11/29/2023 [facility] DATE CREATED AUTHOR AUTHOR'S ORGANIZ ATION 11/14/2024 [facility] DATE CREATED AUTHOR AUTHOR'S ORGANIZ ATION 07/03/2025 [facility] EPIC Reason for Visit (unrecogniz ed section and content) Specialty Diagnoses / Procedures Referred By Sis parmar Referred To Contact Diagnoses Obesity, unspecified classification, unspecified obesity type, unspecified whether serious comorbidity present Gastroesophageal reflux disease, unspecified whether esophagitis present OBESITY, GERD Procedures NC LAP, MEHUL RESTRICT PROC, LONGITUDINAL GASTRECTOMY XI ROBOTIC LAPAROSCOPIC GASTRECTOMY SLEEVE, EGD, LIVER BIOPSY - GI SCHEDULED Bret Wetzel, DO [address] [address] [facility] [address] [place] [address] Referral ID Status Reason Start Date Expiration Date Visits Re quested Visits Authorized [id number] 1 1 Reason Comments Routine Visit Reason Comments Routine Visit Reason Comments Prominent Lateral Ventricles Reason Comments 6wk Post Reason Comments Pre-op Visit Reason Comments IUD insertion Reason Comments Depression Pt present today for post depression/anxiety and a IUD string check. Ordered Prescriptions (unrec ognized section and content) [...] (Given - Provider: Robert Cobb APRN - WIRE GALVANIZER) heparin (porcine) injection 5,000 Units (COMPLETED) 5,000 [...] CRNA)1630 (Anesthesia Volume Adjustment - Provider: Robert Cobb, RESEARCH DIRECTOR - WIRE GALVANIZER) 1354 (Stopped - Provider: Donna Trammell, SUZANNE) lactated ringers infusion (CANCELED) IntraVENous, at 125 mL/hr, CONTINUOUS, Starting on Sat07/03/22 at 1800, Post-op 1637 (New Bag - Provider: Gypsy Stoner RN)2113 (New Bag - Provider: Chichi Kwong, SUZANNE) 0520 (New Bag - Provider: Chichi Kwong [...] PACU only 1645 (Given - Provider: Diane rBandt RN)1650 (Given - Provider: Diane Brandt RN) [...] Nausea, Post-op 0044 (Given - Provid er: hCichi Kwong RN)0837 (Given - Provider: Donna Trammell [...]
Care Teams (unrecognized sec tion and content) Job Foreman Relationship Specialty Start Date End Date Jake Miramontes MD [address] [place] [address] PCP - General Obstetrics & Gynecology 06/18/22 Job Foreman Relationship Specialty Start Date End Date Jake Miramontes DO [address] [place] [address] [place] [address] PCP - General Obstetrics & Gynecology 06/06/24 Job Foreman Relationship Specialty Start Date End Date Karina Lopez DO [address] [place] [address] PCP - General Family Medicine 11/01/23 Job Foreman Relationship Specialty Start Date End Date Jake Miramontes DO [address] [place], [place] [address] [place] [address] PCP - General Obstetrics & Gynecology 06/06/24 [...] BE BASED ON THE PRIMARY CLINICAL RECORDS. [employer] provides no warranty or guarantee of the accuracy or completeness of information in this document.
--- NOTE | 2025-07-13 18:09 | ED.GENADUL1 ---
HPI HPI - General Adult General Chief complaint: Neuro Symptoms/Deficit Stated complaint: RIGHT EYE IS DROOPING , CHEEK IS NUMB AND SO IS AR Time Seen by Provider: 07/13/25 17:40 Source: patient Mode of arrival: walk-in Limitations: no limitations History of Present Illness HPI narrative: Patient apparently was in a meeting at 230 which is almost 3 hours before arrival, patient presented to the ER after she noted some facial drooping in the right side of the face mostly the lower she noted that her right eyelid is little bit lower than the left and she noted that the left side of the cheek is numb This happened exactly 3 hours while she was having a meeting and she saw herself in the camera and recognized that but she did not have any pain no headache no nausea no vomiting And the numbness and tingling came after she noted the drooping Related Data Home Medications ?Medication ?Instructions ?Recorded ?Confirmed omeprazole 20 mg capsule,delayed mg 07/13/25 release Allergies Allergy/AdvReac Type Severity Reaction Status Date / Time latex Allergy Hives Verified 07/13/25 17:37 sulfamethoxazole (From Allergy hives Verified 07/13/25 17:37 Bactrim) trimethoprim (From Bactrim) Allergy hives Verified 07/13/25 17:37 Opioid HPI Opioid Management Most Recent Opioid Data: Last Pain Scale 4 12/26/24, 16:21 Ur Phencyclidine Scrn, (NEGATIVE) Negative 12/25/24, 05:00 Review of Systems ROS Status of ROS 10 or more systems reviewed and unremarkable except as noted in history and below PFSH PFSH Social History Little interest or pleasure in doing things: not at all Feeling down, depressed, or hopeless: not at all Exam Narrative Exam Narrative: Nurses notes and vital signs reviewed and patient is not hypoxic. General: Well-appearing and in no apparent distress. Skin: Warm, dry, no pallor noted. No rash. Head: Normocephalic, atraumatic. Neck: Supple, non-tender. Eye: Pupils are equal, round and EOMI. No scleral icterus. Ears, Nose, Mouth, and Throat: TM are clear, no nasal mucosal hypertrophy. Oral mucosa is moist, no posterior oropharynx erythema, uvula is mid-line Cardiovascular: Regular Rate and Rhythm without murmur, gallop or rub. Respiratory: No accessory muscle use or respiratory distress. Lungs are clear to auscultation, no wheezing, rales or rhonchi Chest Wall: no tenderness Back: No midline thoracic or lumbar vertebral tenderness. No CVA tenderness Musculoskeletal: normal ROM, no calf or popliteal tenderness, no lower extremity edema/swelling GI: Abdomen is soft, non-distended. Normal bowel sounds. No masses appreciated. No tenderness to palpation. No rebound, guarding, or rigidity noted. Neurological: A&O x4. No cranial nerve dysfunction observed. No truncal ataxia. Moves all extremities. Mild decrease in the sensation in the right side of the face mostly the lower half in addition to the posterior aspect of the right arm . NIH score is 0 Psychiatric: Cooperative and interactive. Normal mood and affect. Constitutional Vital Signs, click to edit/add: Last Vital Signs Temp 98.5 F 07/13/25 17:32 Pulse 65 07/13/25 18:30 Resp 17 07/13/25 18:30 BP 108/76 07/13/25 17:32 Pulse Ox 100 07/13/25 17:32 O2 Del Method Room Air 07/13/25 17:32 Course Vital Signs Vital signs: Vital Signs Temperature 98.5 F 07/13/25 17:32 Pulse Rate 73 07/13/25 17:32 Respiratory Rate 14 07/13/25 17:32 Blood Pressure 108/76 07/13/25 17:32 Pulse Oximetry 100 07/13/25 17:32 Oxygen Delivery Method Room Air 07/13/25 17:32 Temperature 98.5 F 07/13/25 17:32 Pulse Rate 65 07/13/25 18:30 Respiratory Rate 17 07/13/25 18:30 Blood Pressure 108/76 07/13/25 17:32 Pulse Oximetry 100 07/13/25 17:32 Oxygen Delivery Method Room Air 07/13/25 17:32 Medical Decision Making MDM Narrative Medical decision making narrative: The patient mentioned that after that she started noticing numbness in her right arm after she already noticed drooping of the right side of the face as well as numbness Right now the patient presenting with a minimal numbness in the right side of the lower face there is no wrinkling of the forehead muscles there is no facial drooping that is observed on examination or when the patient smiles The patient does not have any pathology detected except for the fact that she feels that the lower right side of the face is numb mildly She also might have some numbness although she is not sure in the right lower extremity The patient EKG upon arrival showing a heart rate of [address] elevation or depression CBC and chemistry showed no acute pathology patient calcium was 8.4 with a normal albumin The patient mentioned that she have a history of chronic low calcium The patient does not have any weakness but it is noted that she have numbness in the right side of the lower face CT of the head showed no acute pathology Lab Data Labs: Lab Results 07/13/25 Range/Units 18:04 WBC 5.8 (4.0-11.0) 10^3/uL RBC 4.19 L (4.20-5.40) 10^6/uL Hgb 13.0 (12.0-16.0) g/dL Hct 38.5 (36.0-48.0) % MCV 91.9 (81.0-99.0) fL MCH 31.0 (26.7-34.0) pg MCHC 33.8 (29.9-35.2) g/dL RDW 12.5 (11.0-15.0) % Plt Count 227 (150-450) 10^3/uL MPV 9.4 L (9.5-13.5) fL Neut % (Auto) 55.3 (43.0-75.0) % Lymph % (Auto) 26.5 (20.5-60.0) % Dillon % (Auto) 11.4 (1.7-12.0) % Eos % (Auto) 6.1 (0.9-7.0) % Baso % (Auto) 0.5 (0.2-2.0) % Neut # (Auto) 3.2 (1.4-6.5) 10^3/uL Lymph # (Auto) 1.5 (1.2-3.8) 10^3/uL Dillon # (Auto) 0.7 (0.3-0.8) 10^3/uL Eos # (Auto) 0.4 (0.0-0.7) 10^3/uL Baso # (Auto) 0.0 (0.0-0.1) 10^3/uL Abs Immat Gran (auto) 0.01 (0.00-0.03) 10^3/uL Imm/Tot Granulo (auto) 0.2 (0.0-0.5) % PT 12.4 H (9.0-11.6) sec INR 1.19 Sodium 142 (136-145) mmol/L Potassium 4.4 (3.5-5.1) mmol/L Chloride 108 H (98-107) mmol/L Carbon Dioxide 26.4 (21.0-32.0) mmol/L Anion Gap 12.0 BUN 12.0 (7.0-18.0) mg/dL Creatinine 0.68 (0.55-1.02) mg/dL Est GFR ( Amer) >60 (>=60 mL/min/1.73m^2) Est GFR (Non-Af Amer) >60 (>=60 mL/min/1.73m^2) BUN/Creatinine Ratio 17.6 Glucose 89 (74-106) mg/dL Calcium 8.4 L (8.5-10.1) mg/dL Total Bilirubin 0.5 (0.2-1.0) mg/dL AST 22 (15-37) U/L ALT 33 (14-59) U/L Alkaline Phosphatase 64 (46-116) U/L Total Protein 7.1 (6.4-8.2) g/dL Albumin 3.6 (3.4-5.0) g/dL Globulin 3.5 g/dL Albumin/Globulin Ratio 1.0 Serum HCG, Qual Negative (NEGATIVE) Ethanol Quant <3 mg/dL Discharge Plan Discharge Patient Disposition: Still a Patient
[2025-07-13 18:23] LABS: Hematocrit 38.5 % (36.0-48.0); Hemoglobin 13.0 g/dL (12.0-16.0); Immature Granulocytes Abs Auto 0.01 10^3/uL (0.00-0.03); Immature Granulocytes Pct Auto 0.2 % (0.0-0.5); Lymphocytes Absolute Auto 1.5 10^3/uL (1.2-3.8); Mean Corpuscular HGB Conc 33.8 g/dL (29.9-35.2); Mean Corpuscular Hemoglobin 31.0 pg (26.7-34.0); Mean Corpuscular Volume 91.9 fL (81.0-99.0); Platelet Count 227 10^3/uL (150-450); Red Blood Count 4.19 10^6/uL (4.20-5.40); White Blood Count 5.8 10^3/uL (4.0-11.0)
[2025-07-13 18:37] LABS: INR 1.19; Prothrombin Time 12.4 sec (9.0-11.6)
[2025-07-13 18:39] LABS: Alanine Aminotransferase 33 U/L (14-59); Albumin Globulin Ratio 1.0; Albumin Level 3.6 g/dL (3.4-5.0); Alkaline Phosphatase 64 U/L (46-116); Anion Gap 12.0; Aspartate Amino Transferase 22 U/L (15-37); Blood Urea Nitrogen 12.0 mg/dL (7.0-18.0); Calcium 8.4 mg/dL (8.5-10.1); Carbon Dioxide 26.4 mmol/L (21.0-32.0); Chloride 108 mmol/L (98-107); Estimated GFR (African America >60 (>=60 mL/min/1.73m^2); Estimated GFR (Non-African Ame >60 (>=60 mL/min/1.73m^2); Globulin 3.5 g/dL; Glucose 89 mg/dL (74-106); Potassium 4.4 mmol/L (3.5-5.1); Sodium 142 mmol/L (136-145); Total Protein 7.1 g/dL (6.4-8.2)
--- NOTE | 2025-07-13 19:53 | ED.NEUROSD1 ---
HPI - Neuro Symptoms/Deficit General Chief Complaint: Neuro Symptoms/Deficit Stated Complaint: RIGHT EYE IS DROOPING , CHEEK IS NUMB AND SO IS AR Time Seen by Provider: 07/13/25 17:40 Source: patient Mode of arrival: walk-in Limitations: no limitations History of Present Illness HPI Narrative: This 30-year-old female was signed out to me at shift change pending her consideration for admission. She presents for evaluation of right sided facial weakness and numbness and tingling down her right arm. The symptoms have since resolved. She had a normal CT scan and labs. Neurology had been consulted with recommendation for admission and an MRI tomorrow. The patient was seen and evaluated. She states her symptoms have resolved and [facility] She does not wish to be admitted at this time. She states she has had episodes in the past where she became dizzy and lightheaded. The symptoms have been ongoing for the past several years. She is currently not having any weakness or numbness and the facial changes on the right have resolved. She will be referred to outpatient neurology for further evaluation and treatment. Her mother does have a history of MS and her symptoms started in her 30s. He was encouraged return to the emergency department anytime for recurrent or worsening neurologic symptoms, dizziness, change in her vision, slurred speech confusion weakness numbness tingling or any concerns. She is in agreement with this plan. I suggested that she take a daily aspirin but she has had weight loss surgery and is not supposed to take NSAIDs. Related Data Home Medications ?Medication ?Instructions ?Recorded ?Confirmed omeprazole 20 mg capsule,delayed mg 07/13/25 release Allergies Allergy/AdvReac Type Severity Reaction Status Date / Time latex Allergy Hives Verified 07/13/25 17:37 sulfamethoxazole (From Allergy hives Verified 07/13/25 17:37 Bactrim) trimethoprim (From Bactrim) Allergy hives Verified 07/13/25 17:37 PFSH PFSH Social History Little interest or pleasure in doing things: not at all Feeling down, depressed, or hopeless: not at all Exam Constitutional Vital Signs, click to edit/add: Last Vital Signs Temp 98.5 F 07/13/25 17:32 Pulse 65 07/13/25 18:30 Resp 17 07/13/25 18:30 BP 108/76 07/13/25 17:32 Pulse Ox 100 09/16/25 17:32 O2 Del Method Room Air 07/13/25 17:32 Course Vital Signs Vital signs: Vital Signs Temperature 98.5 F 07/13/25 17:32 Pulse Rate 73 07/13/25 17:32 Respiratory Rate 14 07/13/25 17:32 Blood Pressure 108/76 07/13/25 17:32 Pulse Oximetry 100 07/13/25 17:32 Oxygen Delivery Method Room Air 07/13/25 17:32 Temperature 98.5 F 07/13/25 17:32 Pulse Rate 65 07/13/25 18:30 Respiratory Rate 17 07/13/25 18:30 Blood Pressure 108/76 07/13/25 17:32 Pulse Oximetry 100 07/13/25 17:32 Oxygen Delivery Method Room Air 07/13/25 17:32 MDM - Neuro Symptoms/Deficit Lab Data Labs: Lab Results 07/13/25 Range/Units 18:04 WBC 5.8 (4.0-11.0) 10^3/uL RBC 4.19 L (4.20-5.40) 10^6/uL Hgb 13.0 (12.0-16.0) g/dL Hct 38.5 (36.0-48.0) % MCV 91.9 (81.0-99.0) fL MCH 31.0 (26.7-34.0) pg MCHC 33.8 (29.9-35.2) g/dL RDW 12.5 (11.0-15.0) % Plt Count 227 (150-450) 10^3/uL MPV 9.4 L (9.5-13.5) fL Neut % (Auto) 55.3 (43.0-75.0) % Lymph % (Auto) 26.5 (20.5-60.0) % Ellis % (Auto) 11.4 (1.7-12.0) % Eos % (Auto) 6.1 (0.9-7.0) % Baso % (Auto) 0.5 (0.2-2.0) % Neut # (Auto) 3.2 (1.4-6.5) 10^3/uL Lymph # (Auto) 1.5 (1.2-3.8) 10^3/uL Ellis # (Auto) 0.7 (0.3-0.8) 10^3/uL Eos # (Auto) 0.4 (0.0-0.7) 10^3/uL Baso # (Auto) 0.0 (0.0-0.1) 10^3/uL Abs Immat Gran (auto) 0.01 (0.00-0.03) 10^3/uL Imm/Tot Granulo (auto) 0.2 (0.0-0.5) % PT 12.4 H (9.0-11.6) sec INR 1.19 Sodium 142 (136-145) mmol/L Potassium 4.4 (3.5-5.1) mmol/L Chloride 108 H (98-107) mmol/L Carbon Dioxide 26.4 (21.0-32.0) mmol/L Anion Gap 12.0 BUN 12.0 (7.0-18.0) mg/dL Creatinine 0.68 (0.55-1.02) mg/dL Est GFR ( Amer) >60 (>=60 mL/min/1.73m^2) Est GFR (Non-Af Amer) >60 (>=60 mL/min/1.73m^2) BUN/Creatinine Ratio 17.6 Glucose 89 (74-106) mg/dL Calcium 8.4 L (8.5-10.1) mg/dL Total Bilirubin 0.5 (0.2-1.0) mg/dL AST 22 (15-37) U/L ALT 33 (14-59) U/L Alkaline Phosphatase 64 (46-116) U/L Total Protein 7.1 (6.4-8.2) g/dL Albumin 3.6 (3.4-5.0) g/dL Globulin 3.5 g/dL Albumin/Globulin Ratio 1.0 Serum HCG, Qual Negative (NEGATIVE) Ethanol Quant <3 mg/dL Discharge Plan Discharge Chief Complaint: Neuro Symptoms/Deficit Clinical Impression: Right facial numbness Patient Disposition: Home, Self-Care Time of Disposition Decision: 19:51 Condition: Good Prescriptions / Home Meds: No Action omeprazole 20 mg capsule,delayed release(DR/EC) Print Language: Barbadian Instructions: Paresthesia (ED) Additional Instructions: Return to the emergency department for increasing facial weakness numbness or other neurologic changes. Follow-up with outpatient family medicine and neurology as soon as possible. Referrals: advanced neurology [Other] - 1 week Delicia Guerin DO [Physician, Neurology] - As soon as possible Physician,Non-Staff, MD [Primary Care Provider] - 1 week
== END 2025-07-13 20:00 | disposition home or self-care (01) ==
PROVIDERS: Emergency Medicine; Emergency Provider Emergency Medicine
DX: R20.0 Anesthesia of skin (principal)
CPT/HCPCS: 36415; 70450; 80053; 80307; 80320; 84703; 85025; 85610; 93005; 99285

== ENCOUNTER 2025-09-04 22:16 | Emergency (ER) | payer MEDICAID, SELFPAY ==
[2025-09-04 22:28] VITALS: BP 120/82; PULSE 104; TEMP 37.2; O2SAT 97; BMI 21.5
--- NOTE | 2025-09-04 22:45 | ED.URI1 ---
HPI - URI/Sore Throat General Chief Complaint: Upper Respiratory Infection Stated Complaint: Upper Respiratory Infection Time Seen by Provider: 09/04/25 22:36 Source: patient History of Present Illness HPI Narrative: states she was exposed to someone who had a sinus infection. she now has sore scratchy throat. No cough or dyspnea. no headache or abdominal pain Related Data Home Medications ?Medication ?Instructions ?Recorded ?Confirmed omeprazole 20 mg capsule,delayed 20 mg PO DAILY 07/13/25 09/04/25 release Allergies Allergy/AdvReac Type Severity Reaction Status Date / Time latex Allergy Hives Verified 09/04/25 22:27 sulfamethoxazole (From Allergy hives Verified 09/04/25 22:27 Bactrim) trimethoprim (From Bactrim) Allergy hives Verified 09/04/25 22:27 Review of Systems ROS Status of ROS 10 or more systems reviewed and unremarkable except as noted in history and below PFSH PFSH Social History Little interest or pleasure in doing things: not at all Feeling down, depressed, or hopeless: not at all Exam Constitutional Vital Signs, click to edit/add: Last Vital Signs Temp 99.0 F 09/04/25 22:28 Pulse 104 H 09/04/25 22:28 Resp 20 09/04/25 22:28 BP 120/82 09/04/25 22:28 Pulse Ox 97 09/04/25 22:28 O2 Del Method Room Air 09/04/25 22:28 Common normals: no apparent distress, average body habitus, oriented x3, no limitations, healthy appearing, alert and well nourished [facility] Common normals: normocephalic and head/scalp atraumatic Throat: posterior oropharynx abnormal (erythematous . no exudate or swelling) Respiratory Common normals: normal respiratory effort, no retractions, no use of accessory muscles and clear to auscultation bilaterally Cardio Common normals: regular rate, regular rhythm, S1 normal heart sound and S2 normal heart sound Extremity Common normals: normal to inspection and full ROM Neuro Common normals: oriented x3, CN's II-XII intact bilaterally, moves all extremities and no focal motor deficits Psych Appearance: grossly normal Course Vital Signs Vital signs: Vital Signs Temperature 99.0 F 09/04/25 22:28 Pulse Rate 104 H 09/04/25 22:28 Respiratory Rate 20 09/04/25 22:28 Blood Pressure 120/82 09/04/25 22:28 Pulse Oximetry 97 09/04/25 22:28 Oxygen Delivery Method Room Air 09/04/25 22:28 Temperature 99.0 F 09/04/25 22:28 Pulse Rate 104 H 09/04/25 22:28 Respiratory Rate 20 09/04/25 22:28 Blood Pressure 120/82 09/04/25 22:28 Pulse Oximetry 97 09/04/25 22:28 Oxygen Delivery Method Room Air 09/04/25 22:28 MDM - URI/Sore Throat MDM Narrative Medical decision making narrative: presents with sore throat. Pharynx is erythematous, no swelling, No exudate. Remaining exam unremarkable. Patient informed of findings of pharyngitis. her son has COVID19 and she likely has it as well. Patient to use OTC medications prn and follow up with her doctor for recheck Discharge Plan Discharge Chief Complaint: Upper Respiratory Infection Clinical Impression: Viral infection Patient Disposition: Home, Self-Care Prescriptions / Home Meds: No Action omeprazole 20 mg capsule,delayed release(DR/EC) 20 mg PO DAILY Print Language: Armenian Instructions: Viral Syndrome (ED) Additional Instructions: follow up with your doctor next week for recheck Referrals: Physician,Non-Staff, MD [Primary Care Provider] - 1 week
--- OUTSIDE RECORDS SUMMARY | 2025-09-04 22:48 | XMS_ITS | Clinical Summary ---
Author Organization [facility] Address [address], [address] [place] [address] Care Team Providers Care Solar Energy Specialist Name Role Phone Jake Miramontes MD Primary Care Provider [phone] Allergies Active AllergyReactionsCriticalityNoted SfwzImmljsbkAhpwlTytjXuo79/26/2020 Sulfamethoxazole-UkfjgfleygakEofahVta93/05/2017 Hives to face Medications MedicationSigDispense QuantityRefillsLast FilledStart DateEnd DateStatus famotidine (PEPCID) 20 MG tablet Take 1 tablet by mouth 2 times daily As vidmjz3611/02/2023ctive magnesium oxide (MAG-OX) 400 MG tablet Take 1 tablet by mouth daily 30 tablet ctive vitamin D (ERGOCALCIFEROL) 1.25 MG (04908 UT) CAPS capsule Indications:Vitamin D deficiencytake 1 capsule by mouth every week 8 capsule 11/21/2023ctive Multiple Vitamins-Minerals (THERAPEUTIC MULTIVITAMIN-MINERALS) tablet Take 1 tablet by mouth dailyActive promethazine (PHENERGAN) 25 MG tablet Take 1 tablet by mouth every 6 hours as needed for Nausea 30 tablet 11/27/2023ctive Active Problems Patient Care Coordination No te Formatting of this note is d ifferent from the original. Post -op Bariatric Summary Procedure: sleeve Surgeon:Dr. Manuel HT: Date Weight Labs Ordered Labs Resulted Notes Initial Wt 12-21-21 270 Day of Surgery 07-03-22 266 1 Wk Post-op 07-12-22 247 5 Wk Post-op 08-13-22 234 Vit a? otc prescribed 3 Mon Post-op 2-6-23 197 ? ? 6 Mon Post-op ? 9 Mon Post-op Low mag and zinc? otc 1 Year Post-op ? Annual ? ? Starting at 1 Wk Post-op: Bariatric Multivitamin with iron and Calcium ProblemNoted DateDiagnosed DateOverweight (BMI 25.0-29.9)12/03/2022S/P laparoscopic sleeve rfmbxcaswgo97/06/2022Essential szyrygfujpvb02/06/2022GERD (gastroesophageal reflux disease)Obesity (BMI 30-39.9) Family History Medical HistoryRelationNameCommentsNo Known ProblemsFatherOtherMotherRelation NameStatusCommentsFatherAliveMotherAlive Social History Tobacco UseTypesPacks/DayYears UsedDateSmoking Tobacco: NeverSmokeless Tobacco: Never Tobacco Cessation:Counseling Given: Not Answered Alcohol UseStandard Drinks/WeekCommentsYes0 (1 standard drink = 0.6 oz pure alcohol)occInterpersonal Safety Domain Source: IP Abuse ScreeningAnswerDate RecordedRead-Only, Retired: Physical LpzkbRvxyuu38/29/2024ead-Only, Retired: Verbal ZeapxFcobna21/29/2024ead-Only, Retired: Emotional mbuctMplfxi49/29/2024 Read-Only, Retired: Financial IqecbPiequq86/29/2024ead-Only, Retired: Sexual bvhmnWmkjel56/29/2024CommentsNoSex and Gender InformationValueDate RecordedSex Assigned at BirthNot on fileLegal VupLsugqb01/14/2022 11:02 AM EST Gender IdentityNot on fileSexual OrientationNot on file Last Filed Vital Signs Vital SignReadingTime TakenCommentsBlood Fnbfvcrr643/64011/27/2023 11:15 AM EST Fesdx842111/27/2023 11:15 AM LVZQeyczccwkxk15.7 ??C (98.1 ??F)11/27/2023 9:34 AM ESTRespiratory Wyij266611/27/2023 11:15 AM ESTOxygen Axihcggfkm523%11/27/2023 11:15 AM ESTInhaled Oxygen Concentration--Dgivun21.3 kg (155 lb)11/27/2023 7:21 AM ABMQrygrj788.8 cm (5' 10 )11/27/2023 7:21 AM ESTBody Mass Index22.24 11/27/2023 7:21 AM EST Plan of Treatment Health MaintenanceDue DateLast DoneCommentsDepression Gqkjdl8901/24/2005Varicella vaccine (1 of 2 - 13+ 2-dose series)2006HIV oddbcj6801/25/2008Hepatitis C sdumpq7901/24/2011DTaP/Tdap/Td vaccine (1 - Tdap)01/25/2012Hepatitis B vaccine (1 of 3 - 19+ 3-dose series)01/25/2012Pap smear2014Cervical cancer screen 2023HPV (without or with Pap)2023Flu vaccine (#1)05/28/2025OVID-19 Vaccine ( - season)2025HPV vaccine (No Doses Required)Completed Hepatitis A vaccineAged OutNo longer eligible based on patient's age to complete this topicHib vaccineAged OutNo longer eligible based on patient's age to complete this topicMeningococcal (ACWY) vaccineAged OutNo longer eligible based on patient's age to complete this topicMeningococcal B vaccineAged OutNo longer eligible based on patient's age to complete this topicPneumococcal 0-49 years VaccineAged OutNo longer eligible based on patient's age to complete this topic Polio vaccineAged OutNo longer eligible based on patient's age to complete this topic Medical Devices ImplantedTypeAreaManufacturerDevice IdentifierShelf Expiration DateModel / Serial / LotClip Int L Polymer Lance Lig Hem O Lance (6ea/Pk) - [id number] Implanted:Qty: 1 on 11/27/2023 [facility] AbdomenTELEFLEX [id number] / / [id number] Int L Polymer Lance Lig Hem O Lance (6ea/Pk) - [id number] Implanted:Qty: 1 on 11/27/2023 [facility]ul [facility]: [employer]domen[employer] [id number] / / [id number] Insurance Advance Directives * Full Code (Latest Code Status on File) Date ActivatedDate InactivatedComments07/03/2022 5:43 PM07/04/2022 5:52 PM Care Teams Team MemberRelationshipSpecialtyStart DateEnd Date Jake Miramontes MD [facility] [place] [address] PCP - GeneralObstetrics & Gynecology06/18/22
--- OUTSIDE RECORDS SUMMARY | 2025-09-04 22:49 | XMS_ITS | Encounter Summary ---
Author Organization [facility] Address [address] [place] [address] Care Team Providers Care Liquid Compounder Name Role Phone Unavailable Primary Care Provider Unavailabl e Encounter Details DateTypeDepartmentCare Team (Latest Contact Info)Hbrmyjichbf16/05/2024linisync Result Encounter [facility] External Department Unsolicited Geraldine Miramontes, DO [address] [place], [place] [id number] Social History Tobacco UseTypesPacks/DayYears UsedDateSmoking Tobacco: NeverSmokeless Tobacco: NeverAlcohol UseStandard Drinks/WeekCommentsNot Currently0 (1 standard drink = 0.6 oz pure alcohol)occasionalCommentsYesSex and Gender InformationValue Date RecordedSex Assigned at BirthNot on fileLegal VayDrdmea96/15/2023 7:08 PM EDTGender IdentityNot on fileSexual OrientationNot on filedocumented as of this encounter Plan of Treatment Not on file documented as of this encounter Procedures Procedure NamePriorityDate/TimeAssociated DiagnosisCommentsUS OB ANATOMY 09/01/2024 11:50 AM EST documented in this encounter Results * US OB ANATOMY (09/01/2024 11:50 AM EST)Anatomical RegionLateralityModality OtherSpecimen (Source)Anatomical Location / LateralityCollection Method / VolumeCollection TimeReceived Time09/01/2024 11:50 AM EST Narrative 09/01/2024 11:[address] [facility] ?[address] ? [place] [address] ? Ultrasound Report ? Signed ? Patient: KOLLMAN,PHILLIP N ?MR#: [id number] ?? : 1995 ?Acct:[id number] ?? Age/Sex: 29 / F ?ADM Date: 11/05/24 ?? Loc: [facility] ? Attending Dr: Geraldine Fe D.O. ? Ordering Physician: Geraldine Miramontes D.O. ?? Date of Service: 09/01/24 ?? Procedure(s): US OB anatomy ?? Accession Number(s): [id number] ? cc: Geraldine Miramontes D.O.; Physician,Non-Staff M.D. ? [facility] ? [address] ? [place] [address] ? Patient Name: ?? PHILLIP AVALOS ? MRN: [facility]:[id number] ? date: 1995 ?Sex: F ?? Assigned Patient Location[facility] ?? Current Patient Location: [facility] ?? Accession/Order Number: [id number] ?? Exam Date: 09/01/2024 ??10:26 ?Report Date: 09/01/2024 ??11:50 ? At the request of: ?? GERALDINE ??FE ? Procedure: ??US OB anatomy ? EXAMINATION: US OB anatomy, US OB cervical length ? HISTORY: ANATOMY ? COMPARISON: No relevant comparison available. ? TECHNIQUE: Transabdominal sonographic examination was performed for ?? obstetrical ?? and evaluation. ? FINDINGS: ? Number: 1 ?? Heart Rate: 149 bpm H.B. /min ?? Amniotic Fluid Volume: Subjectively normal ?? position: Variable ?? Placental Location: Anterior, placental edge is 7 cm from the internal os ?? Cervix Length: 4.11 cm , closed ? Normal anatomy: Lateral ventricles, cerebellum, posterior fossa, nose, lips, ?? orbits, four-chamber heart, RVOT, LVOT, diaphragm, stomach, kidneys, abdominal ? cord insertion, bladder, umbilical arteries, three-vessel cord, spine, ?? extremities ? BIOMETRY: ?? BPD: 5.29 cm; 22 weeks 0 days; 82.30 % ?? HC: 20.74 cm; 22 weeks 6 days; 95 % ?? AC: 18.44 cm; 23 weeks 2 days; 94.70 % ?? FL: 3.96 cm; 22 weeks 5 days; 88.60 % ?? EFW:523.68 g; 97 %, 1 lb. 3 oz. ?? FL/AC: 21.48 ?? FL/BPD: 74.86 ?? HC/AC: 1.12 ? GESTATIONAL AGE: ?? Age by EDC: 21 weeks 1 day ?? KIERRA by EDC: 2025-01-11 ? Age by current US: 22 weeks 5 days ?? KIERRA by current US: 2024-12-31 ? US/US OB anatomy ?? IMPRESSION: ? Large for gestational age. Estimated weight greater than the 97th ?? percentile ? Otherwise normal anatomy scan ? Closed cervix measuring 4.1 cm length ? *Reference: [employer] Practice Guideline for the performance of Obstetric ?? Ultrasound ?? Examinations, July 28, 2007. ? Electronically authenticated by: NATALIE ??BILL ?? Date: 09/01/2024 ??11:50 ? Dictated By: ?Natalie Khan M.D. ? Signed By: ?09/01/241152 ? DD/ 1150 ? TD/TT: ? Cross Roller: Procedure Note Radiology, Radiologist, MD - 09/01/2024 [place] [address] Ultrasound Report Signed Patient: PHILLIP AVALOS NMR#: [id number] : 1995Acct:[id number] Age/Sex: Date: 09/01/24 Loc: [facility] Attending Dr: Geraldine Miramontes D.O. Ordering Physician: Geraldine Miramontes D.O. Date of Service: 09/01/24 Procedure(s): US OB anatomy Accession Number(s): [id number] cc: Geraldine Miramontes D.O.; Physician,Non-Staff M.D. The [place] [id number] Patient Name: PHILLIP AVALOS MRN: [id number] date: 1995 Sex: F Assigned Patient [facility] Current Patient Location: [facility] Accession/Order Number: [id number] Exam Date: 09/01/2024 10:26 Report Date: 09/01/2024 [...] M.D. Signed By:09/01/24 1153 DD/ 1150 TD/TT: Cross Roller: Authorizing ProviderResult TypeResult StatusCorey Fe DOCLINISYNC IMAGINGFinal Result documented in this encounter Visit Diagnoses Not on filedocumented in this encounter
--- OUTSIDE RECORDS SUMMARY | 2025-09-04 22:49 | XMS_ITS | Clinical Summary ---
Author Organization [facility] Address [address] [place] [address] Care Team Providers Care Pediatric Oncologist Name Role Phone Unavailable Primary Care Provider Unavailabl e Allergies Active AllergyReactionsCriticalityNoted DateCommentsLatexItchMagi cox 09/22/2020 Other Reaction(s): Unknown Sulfamethoxazole-WsbaezklxrcjYfjooIbm68/05/2017 Other Reaction(s): Unknown Hives to face Hives to face Medications MedicationSigDispense QuantityRefillsLast FilledStart DateEnd DateStatus venlafaxine XR (Effexor XR) 37.5 MG 24 hr capsule Indications:Anxiety, generalizedTake 1 capsule (37.5 mg) by mouth Daily 30 capsule 506Active buPROPion XL (Wellbutrin XL) 150 MG 24 hr tablet Indications:Post depression,Mood changesTake 1 tablet (150 mg) by mouth Daily Do not crush, chew, or split. 30 tablet 1105Active omeprazole (PriLOSEC) [address] capsule Indications:HeartburnTAKE 1 CAPSULE BY MOUTH IN THE MORNING , TAKE BEFORE MEALS. DO NOT CRUSH OR CHEW. 30 capsule 5Active omeprazole (PriLOSEC) [address] capsule Indications:Gastroesophageal reflux disease without esophagitisTake 1 capsule (20 mg) by mouth in the morning. Take before meals. Do not crush or chew. 30 capsule 1105Active Active Problems ProblemNoted DateDiagnosed DateEncounter for insertion of Mirena IUD03/31/2025 Missed eamhkc604Positive blood test ([facility])04/27/2024 Encounters DateTypeDepartmentCare NiqrIklabajjiro00/18/2025 8:10 AM EDTOffice Visit [facility] [address] [place] [address] Jake Miramontes, Post depression ; anxiety ([facility])07/05/2025Refill [facility] [address] [place] [address] Jake Miramontes, DO Gastroesophageal reflux disease without qnppbbfarhz68/07/2025Refill [facility] [address] [place] [address] Jake Miramontes, DO Asaldjqns00/04/2025 1:10 PM EDTPostpartum Visit [facility] [address] [place] [address] Nicki Jama NP Mood changes (Primary Dx); Post depression ; anxiety ([facility]); Intrauterine device dumricwrwbok30/04/2025Refill [facility] [address] [place] [address] Jake Miramontes, Gastroesophageal reflux in ([facility])from Last 3 Months Family History Medical HistoryRelationNameCommentsDiabetesMaternal GrandmotherGHeart disease Maternal GrandmotherGHypertensionMaternal GrandmotherGMultiple sclerosisMother RelationNameStatusCommentsFatherAliveMaternal GrandmotherGDeceasedMotherAlive Social History Tobacco UseTypesPacks/DayYears UsedDateSmoking Tobacco: NeverSmokeless Tobacco: Never Tobacco Cessation:Counseling Given: Not Answered Alcohol UseStandard Drinks/WeekCommentsNot Currently0 (1 standard drink = 0.6 oz pure alcohol)occasionalCommentsNoSex and Gender InformationValueDate RecordedSex Assigned at BirthNot on fileLegal LbhXbibrv63/15/2023 7:08 PM EDT Gender IdentityNot on fileSexual OrientationNot on file Last Filed Vital Signs Vital SignReadingTime TakenCommentsBlood Dwhjnwko632/7609 1:22 PM EDT Vzlvq6679/ 9:50 AM EDTTemperature--Respiratory Opci8137 9:50 AM EDTOxygen Xtzgcimaiv29%05/22/2022 9:50 AM EDTInhaled Oxygen Concentration-- Ropllh01.1 kg (159 lb)07/01/2025 1:22 PM GNGAurooh831.3 cm (5' 11 )07/01/2025 1:22 PM EDTBody Mass Index22.18007/01/2025 1:22 PM EDT Plan of Treatment Health MaintenanceDue DateLast DoneCommentsCOVID-19 Vaccine ( season) 2025Influenza Vaccine (#1)Cervical Cancer Screening 01/25/2028HPV/Ngvlzu7201/25/2028Pap Smearneumococcal Vaccine: Pediatrics (0 to 5 Years) and At-Risk Patients (6 to 64 Years)Aged OutNo longer eligible based on patient's age to complete this topic Procedures Procedure NamePriorityDate/TimeAssociated DiagnosisCommentsPAP SMEARRoutine 2023 12:00 AM EDTfrom Last 3 Months or Most Recently Relevant to Health Maintenance Results * Pap Smear (2023 12:00 AM EDT)Specimen (Source)Anatomical Location / LateralityCollection Method / VolumeCollection TimeReceived TimeSwabCervical swab / Unknown Narrative Authorizing ProviderResult TypeResult StatusCorey Fe DOLAB CYTOLOGY ORDERABLESFinal ResultPerforming OrganizationAddressCity/State/ZIP CodePhone Number EXTERNAL LAB from Last 3 Months or Most Recently Relevant to Health Maintenance Insurance
--- OUTSIDE RECORDS SUMMARY | 2025-09-04 22:49 | XMS_ITS | Clinical Summary ---
Author Organization [facility] Address [id number] [place] [address] Care Team Providers Care Correctional Therapy Director Name Role Phone Jake Miramontes DO Primary Care Provider [phone] Allergies Active AllergyReactionsCriticalityNoted DateComments Sulfamethoxazole-BxfvixmywupgRsywm16/05/2017 Hives to face Latex09/22/2020 Medications MedicationSigDispense QuantityRefillsLast FilledStart DateEnd DateStatus metFORMIN (GLUCOPHAGE) 500 mg tablet Take 1 tablet (500 mg total) by mouth in the morning and 1 tablet (500 mg total) before bedtime.Active tkfndkrg-rhat-RU-calcium &mins (THERAGRAN-M) 9 mg iron-400 mcg tablet Take 1 tablet by mouth in the morning.Active famotidine (PEPCID) 20 mg tablet Take 1 tablet (20 mg total) by mouth in the morning and 1 tablet (20 mg total) before bedtime. 20 tablet 11/02/2023ctive Additional Information Patient not taking.Reported on 11/20/2024 ferrous sulfate 325 (65 FE) MG tablet Take 1 tablet (325 mg total) by mouth daily with breakfast.Active Active Problems ProblemNoted DateDiagnosed DateH/O gastric unqlvg0611/20/2024 Encounters DateTypeDepartmentCare QakvHijzoexadje82/16/2025 7:07 PM EDT - 07/15/2025 12:09 PM EDTEmergency [facility] [address] [place] [address] Discharge Disposition: Telemedicine Dischargefrom Last 3 Months Immunizations ImmunizationAdministration DatesNext DueRho (D) Immune Hwswmlyt77/10/2024 Family History Medical HistoryRelationNameCommentsNo Known ProblemsFatherDiabetesMaternal GrandmotherHeart diseaseMaternal GrandmotherHypertensionMaternal Grandmother Heart failureMaternal UncleNo Known ProblemsMotherRelationNameStatusComments FatherAliveMaternal GrandmotherDeceasedMaternal UncleMotherAlive Social History Tobacco UseTypesPacks/DayYears UsedDateSmoking Tobacco: NeverSmokeless Tobacco: Never Tobacco Cessation:Counseling Given: Not Answered Alcohol UseStandard Drinks/WeekCommentsNot Currently0 (1 standard drink = 0.6 oz pure alcohol)occassionallyChildcareAnswerDate KpokcrxdIbtpzcqzwPxezvpv03/12/2019 EmploymentAnswerDate RtyirkieSvijeycberEyccruh06/12/2019Hunger ScreeningAnswer Date RecordedWithin the past 12 months we worried whether our food would run out before we got money to buy more.Never True11/20/2024Within the past 12 months the food we bought just didn't last and we didn't have money to get more.Never True11/20/2024Purpose - LifeAnswerDate RecordedPurpose and direction in life Srqkqkh27/18/2021CommentsNoSex and Gender InformationValueDate Recorded Sex Assigned at BirthNot on fileLegal WpaFrddps37/06/2015 11:47 AM EDTGender IdentityNot on fileSexual OrientationNot on file Last Filed Vital Signs Vital SignReadingTime TakenCommentsBlood Xgsjdbhv218/78011/20/2024 9:56 AM EST Ofand128111/20/2024 9:56 AM QUETdyseesbwnd32.5 ??C (97.7 ??F)08/26/2024 2:37 PM EDTRespiratory Moeb2848 4:00 PM EDTOxygen Nxqjxatwhn034%08/26/2024 4:00 PM EDTInhaled Oxygen Concentration--Kzskhm10.5 kg (192 lb 12.8 oz)11/20/2024 9:56 AM GXOSbyfaz669.8 cm (5' 10 )08/26/2024 2:37 PM EDTBody Mass Index27.66 08/26/2024 2:37 PM EDT Plan of Treatment Health MaintenanceDue DateLast DoneCommentsDTaP,Tdap and Td Vaccines (6 - Tdap) , 07/11/1994, 1995, Additional history exists Depression Idcjptvep89/30/2005Influenza Hwzcfsq51dult BMI Mdfczcjrw41/Tobacco Onxqqgakw54Pap Smear , 04/17/2021 Medical Devices Not on file Procedures Procedure NamePriorityDate/TimeAssociated DiagnosisCommentsPAP SMEARRoutine 04/17/2021 12:33 PM EDT Well woman exam with routine gynecological exam from Last 3 Months or Most Recently Relevant to Health Maintenance Results * Pap Smear (04/17/2021 12:33 PM EDT)Specimen (Source)Anatomical Location / LateralityCollection Method / VolumeCollection TimeReceived Time04/17/2021 12:33 PM EDT04/18/2021 12:34 PM EDT Narrative COPATH - 04/20/2021 4:27 PM EDT [facility] ? [address] [place] [address] ? [place] [address] ? Gynecologic Cytology Consultation ? Patient Name: PHILLIP AVALOS. : 1995 (Age: 26) Gender: F Taken: 04/17/2021 Reported: 04/20/2021 Physician(s): TRISTAN Maxwell ([phone]) Copy To: ?? Med. Rec.#: [id number] Acct: # [id number] Final Cytologic Interpretation ThinPrep Pap Test (Vaginal/Cervical): Satisfactory for evaluation. A transformation zone component was not noted. NEGATIVE FOR INTRAEPITHELIAL LESION OR MALIGNANCY. ?? 04/20/2021 Interpretation performed at [facility], [address] [place] [address], License number: [id number]. Electronically Signed Out By ?NARCISA Ibrahim(ASCP) Date of Last Menstrual Period: ? 04/12/2021 Other Clinical Conditions: Z01.419 Metal Precision Machine Assembler exam wo/abn findings Source of Specimen ??ThinPrep Pap Test (Vaginal/Cervical) ? Thin Prep Pap (PATIENT FINANCIAL COORDINATOR) Fee Code(s): ?? G0145 The Pap test is a screening test with an inherent, but low, probability of error. The Pap test is primarily effective for the diagnosis and prevention of squamous cell carcinoma. Regular screening iscritical for prevention. ThinPrep liquid-based slides, which meet the Orthopedics Nurse criteria for automated screening, have been screened by the ThinPrep Imaging System (as of 07/14/07) along with an additional manual rescreening by a short piece handler and, if indicated, by a pathologist. Authorizing ProviderResult TypeResult StatusFelicia Caruso LECTURER IN MARKETING-MOLASSES PREPARER PATHOLOGY/CYTOLOGY ORDERABLESFinal ResultPerforming OrganizationAddress City/State/ZIP CodePhone Number COPATH from Last 3 Months or Most Recently Relevant to Health Maintenance Insurance Care Teams Team MemberRelationshipSpecialtyStart DateEnd Date Jake Miramontes DO [address] [place], [place] [address] [address] PCP - GeneralObstetrics & Gynecology06/06/24
--- OUTSIDE RECORDS SUMMARY | 2025-09-04 22:49 | XMS_ITS | CCD ---
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 Name Role Phone Ct LEAL, Chayo Mina [...] REQUEST, NONE LISTED Primary Care Unavaila ble ORISKANY, DR NATALIE Yung Consulting Unavailable FE ., DR CHANDLER Attending Unavailable FE ., DR CHANDLER Consulting Unavailable REQUEST, DR NONE LISTED Consulting Unavaila BRET Way Attending Unavailable BRET WETZEL Admitting Unavailable JAKE MIRAMOTNES Primary Care Unavailable Unavailable Primary Care Provider [...] Fe DO, Jake R Primary Care Provider [phone] [facility] [place], [facility] K Primary Care Provider [phone] FE, JAKE R Primary Care Unavailable FE, JAKE Attending Unavailable FE, JAKE Attending Unavailable FE, JAKE Attending Unavailable FE, JAKE Attending Unavailable FE, JAKE Attending Unavailable FE, JAKE Attending Unavailable FE, JAKE Attending Unavailable JOEY JAMA Attending Unavailable FE, JAKE Attending Unavailable KATHERINE BRIDGES Attending Unavailable FE, JAKE Attending Unavailable FE, JAKE Attending Unavailable FE, JAKE Attending Unavailable FE, JAKE Attending Unavailable Ginna Morales PA-C Attending Provider NO FAMILY, PHYSICIAN Primary Care Provider Unava ilable Andrew, Ginna Attending Unavailable Ginna Morales Admitting Unavailable NO FAMILY, PHYSICIAN Primary Care Unavailable WOOD ZIMMERMAN Attending Unavailable Allergies Allergy ClassificationReported Allergen(s)Allergy TypeDate of OnsetReaction(s) Facility (7 sources)Latex; Translations: [LATEX]Propensity to adverse reactions to drug 08-76-7424FhtzQMGSpotsylvania [facility] (20 sources)Sulfamethoxazole / Trimethoprim; Translations: [SULFAMETHOXAZOLE-TRIMETHOPRIM]Drug Zljffmg31-23-9488ZuivdHAHHospital Corporation of America Work Phone: (20 sources)LatexPropensity to adverse bxpvqaigj65-22-2744FcuphpaChrist[facility] Hospital (1 source)Unable to AssessDrug allergy (disorder)27-92-3534BofmkeigvDunlap Memorial Hospital Repository Medications Current Medications MedicationDrug Class(es)DatesSig (Normalized)Sig (Original)acetaminophen 325 mg / oxyCODONE hydrochloride 5 mg oral tablet (2 sources)Opioid AgonistStart: 07-04-2022 End: 31-39-8949xwhm 1 tablet by mouth every six hours as needed for pain oxyCODONE-acetaminophen (PERCOCET) 5-325 MG per tablet Indications: S/P laparoscopic sleeve gastrectomy Take 1 tablet by mouth every 6 hours as needed for Pain for up to 7 days. 28 tablet 0 07/04/2022 07/11/2022 ActiveStart: 00-60-7982zmrUXAFKN-acetaminophen (PERCOCET) 5-325 MG per tablet 1 tablet albuterol 0.833 mg/ml / ipratropium bromide 0.167 mg/ml inhalation solution (1 source)Anticholinergic, beta2-Adrenergic AgonistStart: 15-08-1621rkywraxrwpk- albuterol (DUONEB) nebulizer solution 1 ampulebenzocaine 15 mg / menthol 3.6 mg oral lozenge (1 source)Standardized Chemical AllergenStart: 15-98-8067vqzvwyrcie-menthol (CEPACOL SORE THROAT) lozenge 1 ergnial22 hr buPROPion hydrochloride 150 mg extended release oral tablet (4 sources)AminoketoneStart: 07-01-2025 End: 07-91-4120gybi 1 tablet by mouth once dailybuPROPion XL (Wellbutrin XL) 150 MG 24 hr tablet Indications: Post depression , Mood changesTake 1 tablet (150 mg) by mouth Daily Do not crush, chew, or split. 30 tablet 11 07/01/2025 07/31/2025 ActiveCalcium (4 sources)Phosphate Binder, CalciumStart: 06-16-2024 End: 85-95-2527kyos 1 tablet by mouth once dailycalcium 500 MG tablet Indications: Low calcium levels Take 1 tablet (500 mg) by mouth Daily 30 tablet 3 06/16/2024 07/16/2024 Activecyclobenzaprine hydrochloride 10 mg oral tablet (2 sources)Muscle RelaxantStart: 07-03-2022 End: 54-30-6680qadn 1 tablet by mouth three times daily as needed for muscle spasmscyclobenzaprine (FLEXERIL) 10 MG tablet Take 1 tablet by mouth 3 times daily as needed for Muscle spasms 28 tablet 0 07/04/2022 07/14/2022 Active0.4 ml enoxaparin sodium 100 mg/ml prefilled syringe (1 source)Low Molecular Weight HeparinStart: 07-04-2022 End: 01-84-5732nbzvzatdct (LOVENOX) 40 MG/0.4ML Inject 0.4 mLs into the skin 2 times daily for 14 days 11.2 mL 0 07/04/2022 07/18/2022 Activefamotidine 20 mg oral tablet (3 sources)Histamine-2 Receptor AntagonistStart: 73-62-1742wfqe 1 tablet by mouth in the morning, then take 1 tablet by mouth at bedtimefamotidine (PEPCID) 20 mg tablet Take 1 tablet (20 mg total) by mouth in the morning and 1 tablet (2 0 mg total) before bedtime. 20 tablet 11/02/2023 Active1 ml heparin sodium, porcine 5000 unt/ml prefilled syringe (2 sources)Unfractionated Heparin, Anti-coagulantStart: 07-03-2022 End: 05-66-5882gzbntvb (porcine) injection 5,000 Units1 ml HYDROmorphone hydrochloride 1 mg/ml cartridge (4 sources)Opioid AgonistStart: 42-63-9401KAVYMszvpirar (DILAUDID) injection 1 mgStart: 07-03-2022 End: 64-40-3628LPXUGdykojafk (DILAUDID) 1 MG/ML injectionStart: 07-03-2022 End: 61-49-5361IVUBJmlkzdlyk (DILAUDID) injection 0.5 mgStart: 07-03-2022 End: 79-70-1846CCBSSzofomwfs (DILAUDID) injection 0.25 mgmetFORMIN hydrochloride 500 mg oral tablet (3 sources)Biguanidetake 1 tablet by mouth in the morning, then take 1 tablet by mouth at bedtimemetFORMIN (GLUCOPHAGE) 500 mg tablet Take 1 tablet (500 mg total) by mouth in the morning and 1 tablet (500 mg total) before bedtime. Ethmaroxlhvudq-ckkh-SR-calcium &mins (THERAGRAN-M) 9 mg iron-400 mcg tablet (3 sources)apjhuqzf-skig-ID-calcium &mins (THERAGRAN-M) 9 mg iron-400 mcg tablet Take 1 tablet by mouth inthe morning. Ofrndfqnxcmxnp-rsxq-AE-calcium &mins (THERAGRAN-M) 9 mg iron-400 mcg tablet Take 1 tablet by mouth inthe morning. 0 Activeomeprazole 20 mg delayed release oral capsule (20 sources)Proton Pump InhibitorStart: 07-05-2025 End: 86-90-0281kkgs 1 capsule by mouth before mealtimeomeprazole (PriLOSEC) [address] capsule Indications: Heartburn TAKE 1 CAPSULE BY MOUTH IN THE MORNING , TAKE BEFORE MEALS. DO NOT CRUSH OR CHEW. 30 capsule 07/05/2025 ActiveStart: 06-02-2025 End: 26-00-4000oheu 1 capsule by mouth before mealtimeomeprazole (PriLOSEC) [address] capsule Indications: Gastroesophageal reflux in ([facility]) Take 1 capsule (20 mg) by mouth in the morning. Take before meals. Do not crush or chew. 30 capsule 1 06/02/2025 07/01/2025 Discontinued (Therapy completed)Start: 01-05-2025 End: 76-95-8773used 1 capsule by mouth before mealtimeomeprazole (PriLOSEC) [address] capsule Indications: Gastroesophageal reflux in TAKE 1 CAPSULE BY MOUTH IN THE MORNING. TAKE BEFORE MEALS. DO NOT CRUSH OR CHEW. 30 capsule 01/05/2025 ActiveStart: 07-07-2024 End: 03-82-4468qckl 1 capsule by mouth before mealtimeomeprazole (PriLOSEC) [address] capsule Indications: Gastroesophageal Reflux Disease , Heartburn Take 1 capsule (20 mg) by mouth in the morning. Take before meals. Do not crush or chew.. 30 capsule 3 08/27/2024 09/07/2024 Discontinued (Reorder)2 ml ondansetron 2 mg/ml injection (1 source)Serotonin-3 Receptor AntagonistStart: 93-76-5656wuatzgbmgwl (ZOFRAN) injection 4 mgpantoprazole 40 mg delayed release oral tablet (1 source)Proton Pump InhibitorStart: 47-43-5733atlcnbszjhwt (PROTONIX) tablet 40 mgphenol 14 mg/ml mouthwash (1 source)Start: 82-57-9278svnfdp 1.4 % mouth spray 1 spraypromethazine hydrochloride 25 mg oral tablet (2 sources)PhenothiazineStart: 07-04-2022 End: 23-73-9973ziey 1 tablet by mouth every six hours as needed for nausea promethazine (PHENERGAN) 25 MG tablet Take 1 tablet by mouth every 6 hours as needed for Nausea 28 tablet 0 07/04/2022 07/11/2022 ActiveStart: 07-03-2022 promethazine (PHENERGAN) tablet 25 mg72 hr scopolamine 0.0139 mg/hr transdermal system (2 sources)AnticholinergicStart: 08-81-8734zjuiziokkbh (TRANSDERM-SCOP) transdermal patch 1 patchStart: 61-52-5915mnolulksqsh (TRANSDERM-SCOP) transdermal patch 1 patchsimethicone 80 mg chewable tablet (1 source)Start: 22-13-7521cyuobqehrtd (MYLICON) chewable tablet 40 mg5 ml sodium chloride 9 mg/ml injection (3 sources)Start: .9 % sodium chloride infusionStart: 07-03-2022 sodium chloride flush 0.9 % injection 5-40 mL24 hr venlafaxine 37.5 mg extended release oral capsule (4 sources)Serotonin and Norepinephrine Reuptake InhibitorStart: 04-28-2025 End: 28-91-9287ripv 1 capsule by mouth once dailyvenlafaxine XR (Effexor XR) 37.5 MG 24 hr capsule Indications: Anxiety, generalized Take 1 capsule (37.5 mg) by mouth Daily 30 capsule 3 04/28/2025 04/28/2026 Active Completed/Discontinued Medications MedicationDrug Class(es)DatesSig (Normalized)Sig (Original)aprepitant 40 mg oral capsule (1 source)Substance P/Neurokinin-1 Receptor AntagonistStart: 07-04-2022 End: 86-37-2794pyuxstastj (EMEND) capsule 80 mgBlood Glucose Monitoring Suppl (D-Care Glucometer) w/Device kit (8 sources)Start: 09-29-2024 End: 35-06-5641Xgedd Glucose Monitoring Suppl (D-Care Glucometer) w/Device kit Indications: Gestational diabetes mellitus (GDM), antepartum, gestational diabetes method of control unspecified , Elevated glucose tolerance test 1 kit Daily Use four times daily to check FSBS. In the morning prior to breakfast & 1 hour after each meal for a total of 4times daily. 1 kit 09/29/2024 11/04/2024 DiscontinuedStart: 09-29-2024 End: 38-24-2712Qxqez Glucose Monitoring Suppl (D-Care Glucometer) w/Device kit Indications: Gestational diabetes mellitus (GDM), antepartum, gestational diabetes method of control unspecified , Elevated glucose tolerance test 1 kit Daily Use four times daily to check FSBS. In the morning prior to breakfast & 1 hour after each meal for a total of 4times daily. 1 kit 09/29/2024 09/29/2025 Activecalcium carbonate 1250 mg oral tablet (20 sources)Start: 12-21-2024 End: 62-42-3304hbvf 1 tablet by mouth once dailyOyster Shell Calcium 500 MG tablet Indications: Second trimester Take 1 tablet by mouth once daily 90 tablet 12/21/2024 03/09/2025 DiscontinuedStart: 41-46-4901kjjg 1 tablet by mouth once dailyOyster Shell Calcium 500 MG tablet Indications: Second trimester Take 1 tablet by mouth once daily 90 tablet 09/07/2024 Activecalcium chloride 0.0014 meq/ml / potassium chloride 0.004 meq/ml / sodium chloride 0.103 meq/ml / sodium lactate 0.028 meq/ml injectable solution (2 sources)Start: 07-03-2022 End: 24-50-7026mfrboytw ringers infusionceFAZolin (ANCEF) 2000 mg in sterile water 20 mL IV syringe (1 source)Start: 07-03-2022 End: 49-87-2720dqQSGjqaw (ANCEF) 2000 mg in sterile water 20 mL IV syringe ferrous sulfate 325 mg oral tablet (20 sources)Start: 11-03-2024 End: 59-08-2490monb 1 tablet by mouth at mealtimeferrous sulfate 325 (65 Fe) MG tablet Indications: Antepartum anemia Take 1 tablet (325 mg) by mouth in the morning. Take with meals. 30 tablet 11 11/05/2024 03/09/2025 Discontinued isopropyl alcohol 0.7 ml/ml medicated pad (8 sources)Start: 09-29-2024 End: 17-25-8608Byzmktr Swabs (Alcohol Prep Pad) 70 % pads Indications: Gestational diabetes mellitus (GDM), antepartum, gestational diabetes method of control unspecified , Elevated glucose tolerance test Apply 1 Pad topically Daily Use four times daily to check FSBS. 150 each 3 09/29/2024 11/04/2024 Discontinued1 ml ketorolac tromethamine 15 mg/ml cartridge (1 source)Nonsteroidal Anti-inflammatory Drug, Cyclooxygenase InhibitorStart: 07-04-2022 End: 13-27-3021kiihgflor (TORADOL) injection 15 mglevonorgestrel 0.746602 mg/hr intrauterine system (2 sources)Progestin, Progestin-containing Intrauterine DeviceStart: 03-31-2025 End: 58-49-1641Gtavrpxfimiewx intrauterine device 52 mgStart: 03-31-2025 End: 44-38-053773 mg, Intrauterine, Once PRN Procedure, Starting on Sat03/31/25 at 1430, For 1 dosemetoclopramide 10 mg oral tablet (14 sources)Dopamine-2 Receptor AntagonistStart: 08-27-2024 End: 31-18-5904yauxuwvvsmptmq (Reglan) 10 MG tablet Indications: Gastroesophageal reflux in ([facility]) Take 1 tablet (10 mg) by mouth in the morning and 1 tablet (10 mg) at noon and 1 tablet (10 mg) in theevening. Take before meals. Take 1 tablet by mouth 30 minutes prior to meals 3 times daily as needed for nausea.. 90 tablet 3 08/27/2024 11/04/2024 Discontinued2 ml midazolam 1 mg/ml injection (1 source)BenzodiazepineStart: 07-03-2022 End: 90-05-8248nlsertjna PF (VERSED) injection 2 mgpolysaccharide iron complex 391 mg oral capsule (20 sources)Start: 06-08-2024 End: 22-49-7411hcjn 1 capsule by mouth once dailyiron polysaccharides (ProFe) 391.3 (180 Fe) MG capsule Indications: Antepartum anemia ([facility]) Take 1 capsule (391.3 mg) by mouth Daily 90 capsule 3 06/08/2024 03/09/2025 DiscontinuedPrenatal Vit-Fe Fumarate-FA ( Vitamins) 28-0.8 MG tablet (20 sources)Start: 08-11-2024 End: 17-27-4452wyre 1 tablet by mouth once dailyPrenatal Vit-Fe Fumarate-FA ( Vitamins) 28-0.8 MG tablet Indications: Second trimester ([facility]) Take 1 tablet by mouth Daily 30 tablet 6 08/11/2024 03/09/2025 DiscontinuedStart: 08-11-2024 End: 17-32-8591stmr 1 tablet by mouth once dailyPrenatal Vit-Fe Fumarate-FA ( Vitamins) 28-0.8 MG tablet Indications: Second trimester Take 1 tablet by mouth Daily 30 tablet 6 08/11/2024 03/09/2025 Discontinued Start: 08-11-2024 End: 13-22-0927wzhj 1 tablet by mouth once dailyPrenatal Vit-Fe Fumarate-FA ( Vitamins) 28-0.8 MG tablet Indications: Second trimester Take 1 tablet by mouth Daily 30 tablet 6 08/11/2024 08/11/2025 ActiveStart: 05-05-2024 End: 90-54-3139qyww 1 tablet by mouth once dailyPrenatal Vit-Fe Fumarate-FA ( Vitamins) 28-0.8 MG tablet Indications: Positive urine test , Missed menses , Positive blood test Take 1 tablet by mouth Daily 90 tablet 3 05/05/2024 08/03/2024 Activetriamcinolone acetonide 0.25 mg/ml topical cream (1 source)CorticosteroidStart: 02-15-2022 End: 50-00-6217uynptrpzytzpk (KENALOG) 0.025 % cream apply topically to affected area ON HANDS, LEGS, AND ARMS twice a... (REFER TO PRESCRIPTION NOTES). 0 02/15/2022 07/04/2022 Discontinued (Stop Taking at Discharge) Problems Active Problems Problem ClassificationProblemDateDocumented DateEpisodic/ChronicBiliary tract disease (1 source)Cholecystitis, unspecified; Translations: [Cholecystitis, unspecified] Onset: 05-84-7976FhaymjucGmlyzxup mellitus without complication (4 sources)Abnormal glucose tolerance test; Translations: [Other abnormal glucose]22-99-5784KzisxfrgGuttftva or abnormal glucose tolerance complicating ; childbirth; or the puerperium (4 sources)Gestational diabetes mellitus; Translations: [Gestational diabetes mellitus in , unspecified control]96-72-6711XevyutukEyidhivywp disorders (3 sources)Gastroesophageal reflux disease; Translations: [Gastro-esophageal reflux disease without esophagitis]Onset: 93-10-4706IundilkPysgcetlc hypertension (2 sources)Essential hypertension; Translations: [Essential (primary) hypertension]Onset: 739210-62-0183DlaqnsdJbzcik infertility (6 sources)Female infertility, unspecified; Translations: [Female infertility associated with anovulation]Onset: 71-01-2577ZgzucaoRsnsjotcfnukw and screening for infectious disease (3 sources)Encounter for screening for human papillomavirus (HPV); Translations: [Exposure to sexually transmissible disorder]Onset: 431755-52-2532Izfpwiwf Menstrual disorders (20 sources)Missed period; Translations: [Irregular menstruation, unspecified] Onset: 093541-56-5164VlmbkbmHgncwithczsdx mental health disorders (4 sources) depression; Translations: [ depression] 57-14-5259WczjtqpnPqfb disorders (2 sources)Disturbance in mood; Translations: [Emotional lability]07-01-2025 EpisodicNonspecific chest pain (2 sources)Chest pain, unspecified; Translations: [Chest pain]Onset: 08-26-2024 EpisodicNutritional deficiencies (1 source)Vitamin D deficiency, unspecified; Translations: [Vitamin D deficiency, unspecified]Onset: 18-28-0889IhazhyeIphqx complications of (4 sources)Excessive growth affecting management of mother; Translations: [Maternal care for excessive growth, unspecified trimester, not applicable or unspecified]19-07-1626AhrcarahGwgfv complications of (4 sources)Other mental disorders complicating the puerperium; Translations: [Mental disorders of mother, condition or complication]07-01-2025 EpisodicOther endocrine disorders (1 source)Polycystic ovarian syndrome; Translations: [Polycystic ovarian syndrome]Onset: 56-72-0352TebmkfwIncmx female genital disorders (1 source)Abnormal uterine and vaginal bleeding, unspecified; Translations: [Abnormal uterine and vaginal bleeding, unspecified]Onset: 10-25-1970Csnfhtb Other gastrointestinal disorders (4 sources)History of sleeve gastrectomy; Translations: [Bariatric surgery status]Onset: 59-38-2965CoyaqrksEbmke nervous system disorders (1 source)Anesthesia of skin; Translations: [Anesthesia of skin]Onset: 70-11-8421SvhfbntzQdqva nutritional; endocrine; and metabolic disorders (1 source)Obesity; Translations: [Obesity, unspecified]ChronicOther nutritional; endocrine; and metabolic disorders (1 source)Body mass index 30+ - obesity; Translations: [Obesity, unspecified] 70-96-1494EbhpqqiSvgfx screening for suspected conditions (not mental disorders or infectious disease) (15 sources)Encounter for screening for malignant neoplasm of cervix; Translations: [Alpha-fetoprotein blood test status]Onset: 36-88-5374Qfgvkqdt Ovarian cyst (4 sources)Unspecified ovarian cyst, right side; Translations: [UNSPECIFIED OVARIAN CYST RIGHT SIDE]Onset: 47-68-5897XtgbkhvyPovzyrfg codes; unclassified (2 sources)Gestation period, 17 weeks; Translations: [17 weeks gestation of ]76-14-8264DinvhwknSrcbftjx codes; unclassified (2 sources)Gestation period, 21 weeks; Translations: [21 weeks gestation of ]97-35-6461PcdbncpqDyhnknia codes; unclassified (2 sources)Gestation period, 25 weeks; Translations: [25 weeks gestation of ]57-61-0587JbbwrbrnRxddwgsr codes; unclassified (2 sources)Gestation period, 28 weeks; Translations: [28 weeks gestation of ]11-70-2733TmbthgooIomkdqhi codes; unclassified (2 sources)Gestation period, 30 weeks; Translations: [30 weeks gestation of ]73-29-4590TuzoixaeXzxiuydn codes; unclassified (2 sources)Gestation period, 32 weeks; Translations: [32 weeks gestation of ]84-54-8032JczsknhiIbhbhqbo codes; unclassified (2 sources)Gestation period, 34 weeks; Translations: [34 weeks gestation of ]96-19-6229ElamwbnyBpfeesgx codes; unclassified (2 sources)Gestation period, 36 weeks; Translations: [36 weeks gestation of ]16-88-5738MjmgfqhjJnicmsas codes; unclassified (2 sources)Gestation period, 37 weeks; Translations: [37 weeks gestation of ]61-90-2572SirkqqdlTkmjzmd (2 sources)Syncope and collapse; Translations: [Syncope and collapse]Onset: 86-03-2608SwwemtdqChptpst disorders (4 sources)Autoimmune thyroiditis; Translations: [Hypothyroidism, unspecified] Onset: 131347-45-3820OvsfkrjZwdyqobeyxcl (1 source)Vaginal Bleeding - Onset: 57-31-3660Aymspkdaxpga (1 source)Vaginal Bleeding- 7 weeks Onset: 05-26-2024 Past or Other Problems Problem ClassificationProblemDateDocumented DateEpisodic/ChronicAbdominal pain (1 source)Pelvic and perineal pain; Translations: [Pelvic and perineal pain] Onset: 57-64-4235AcjckgvuLrnefkndghoir and procreative management (13 sources)Sterilization requested; Translations: [Encounter for sterilization] Onset: 079624-06-3983OoszavnqCxaxyehjel during ; abruptio placenta; placenta previa (1 source)Hemorrhage in early , unspecified; Translations: [Hemorrhage in early , unspecified]Onset: 20-54-0229LebzyneeIhvmk complications of (2 sources)Gastroesophageal reflux disease in ; Translations: [Diseases of the digestive system complicating , unspecified trimester] 10-88-8656MfeelznvCabzz endocrine disorders (1 source)Endocrine disorder, unspecified; Translations: [Endocrine disorder, unspecified]Onset: 26-02-0443UpcadfmbXlmla female genital disorders (1 source)Personal history of other diseases of the female genital tract; Translations: [Personal history of other diseases of the female genital tract] Onset: 13-86-3850EedikttgOmkoi female genital disorders (1 source)H/O: Disorder; Translations: [Personal history of other diseases of the female genital tract]67-26-8711KyqtziclAhkxm gastrointestinal disorders (2 sources)Bariatric surgery status; Translations: [Bariatric surgery status] Onset: 11-88-3109SdoozyveZlwic gastrointestinal disorders (1 source)Diarrhea, unspecified; Translations: [Diarrhea, unspecified]Onset: 59-59-6974OasrotzfVbpzb nutritional; endocrine; and metabolic disorders (1 source)Overweight; Translations: [Overweight]Onset: 02-78-7471CbdlwaacBibzy and delivery including normal (20 sources)Serum test positive; Translations: [Encounter for test, result positive]Onset: 670892-31-0708UehircqoAwlrdflu codes; unclassified (2 sources)Acquired absence of other specified parts of digestive tract; Translations: [Acquired absence of other specified parts of digestive tract] Onset: 90-44-1610MmypqvmoXuostotb codes; unclassified (2 sources)Gestation period, 13 weeks; Translations: [13 weeks gestation of ]16-96-2043MrmltabyEhbjnrfk codes; unclassified (1 source)Less than 8 weeks gestation of ; Translations: [Less than 8 weeks gestation of ]Onset: 46-57-5269LjdodtwyReydnuzyaigw (3 sources)Onset: 189487-66-8775TXDERYZ: Highlighted row has been ruled out!Unclassified (1 source)No known active mncxfxpu54-42-6961 Results Test NameValueInterpretationReference RangeFacilityOffice Visiton 08-18-2025 Follow-up [id number] Phillip Noriega 1995 F Date Provider Department Center 08/18/2025 [facility] ZIMMER[facility] CARD Jaime Lugo Family History Family Status - Relation Status Age at Mother Alive Father Alive Sister Alive Brother Alive Level of Service:99096 IN OFFICE/OUTPATIENT NEW MODERATE MDM 45 MINUTES Reason for Visit and Comments: New Patient [632] - Patient is here today to establish care as a new patient. Patient complains of being lightheaded/dizziness, tunnel vision, feeling flushed, legs feel heavy at times when standing/walking Hypertension [589900] Dizziness [186814] - Dizziness/lightheaded Palpitations [563022]NormalAdena Health SystemMR head/brain wo/w conon 86-73-0172XM head/brain wo/w [facility] [place] [address] [place] [address] MRI Report Signed Patient: Phillip Noriega MR#: [id number] 69 : 1995 Acct:[id number] Age/Sex: 30 / F ADM Date: 08/03/25 Loc: MR Room: Type: [facility] Attending Dr: Ginna Morales PA-C Copies to: Ginna Morales PA-C Ordering Provider: Ginna Morales PA-C Date of Service: 08/03/25 MR/MR head/brain wo/w con: RT FACIAL NUMBNESS R20.0 MR head/brain wo/w con 08/03/2025 7:35 AM SIGN AND SYMPTOMS: S.br RT FACIAL NUMBNESS R20.0 PROTOCOL: Multiplanar multisequence MR images of the brain with and without IV contrast CONTRAST: 14 mL of intravenous ProHance COMPARISON: None. FINDINGS: Extra axial spaces: Age appropriate. Hemorrhage: None. Ventricular system: Within normal limits. Basal cisterns: Within normal limits and not effaced. Cerebral parenchyma: Normal in signal. Midline shift: None.. Cerebellum: Within normal limits. Brainstem: Within normal limits. OTHER: Calvarium: Normal marrow signal. Vascular system: Satisfactory flow voids within the anterior and posterior circulation. Visualized Paranasal sinuses: Mucosal thickening is noted in the ethmoid air cells. There is also mucosal thickening in the sphenoid sinuses. Visualized Orbits: Within normal limits. Visualized upper cervical spine: Within normal limits. Sella and skull base: Within normal limits. MR/MR head/brain wo/w con IMPRESSION: No acute intrarenal pathology or abnormal postcontrast enhancement. Impression dictated by: Magdiel Nielson M.D. 08/03/2025 9:08 AM Dictation Location: [place] [address] Transcribed By: WILI 08/03/25 0908 Dictated By: Magdiel Nielson II, MD 08/03/2504 Signed By: 08/03/25 0908[facility] Physician GroupMagnetic resonance imaging reportOrdered By: Magdiel Nielson on 28-88-5799Xshaw reportSALEM [facility] [place] [address] [place] [address] MRI Report Signed Patient: Phillip Noriega MR#: [id number] : 1995 Acct:[id number] Age/Sex: 30 / F ADM Date: 5 Loc: MR Room: Type: [facility] Attending Dr: Ginna Morales PA-C Copies to: Ginna Moralse PA-C~ Ordering Provider: Ginna Morales PA-C Date of Service: 08/03/25 MR/MR head/brain wo/w con: RT FACIAL NUMBNESS R20.0 MR head/brain wo/w con 08/03/2025 7:35 AM SIGN AND SYMPTOMS: undefinedS.brundefined^RT FACIAL NUMBNESS R20.0 PROTOCOL: Multiplanar multisequence MR images of the brain with and without IV contrast CONTRAST: 14 mL of intravenous ProHance COMPARISON: None. FINDINGS: Extra axial spaces: Age appropriate. Hemorrhage: None. Ventricular system: Within normal limits. Basal cisterns: Within normal limits and not effaced. Cerebral parenchyma: Normal in signal. Midline shift: None.. Cerebellum: Within normal limits. Brainstem: Within normal limits. OTHER: Calvarium: Normal marrow signal. Vascular system: Satisfactory flow voids within the anterior and posterior circulation. Visualized Paranasal sinuses: Mucosal thickening is noted in the ethmoid air cells. There is also mucosal thickening in the sphenoid sinuses. Visualized Orbits: Within normal limits. Visualized upper cervical spine: Within normal limits. Sella and skull base: Within normal limits. MR/MR head/brain wo/w con IMPRESSION: No acute intrarenal pathology or abnormal postcontrast enhancement. Impression dictated by: Magdiel Nielson M.D. 08/03/2025 9:08 AM Dictation Location: [place] [address] Transcribed By: WILI 08/03/25907 Dictated By: Magdiel Nielson II, MD 08/03/25903 Signed By: 08/03/25907 [facility] Work Phone: hcg ( test) Ql (U)on 50-81-7949Drhmqxxbhqcmhy and review of laboratory resultsNormalNOMS HealthcarePreg Test, UrNegative NegativeNOMS HealthcareNOMS HealthcareIUD Insertionon 55-76-7908Gmjws BoresLC 03/31/2025 3:54 PM IUD Insertion Performed by: Jake Miramontes DO Authorized by: Jake Miramontes DO Procedure: IUD insertion Consent obtained by patient, parent, or legal power of film spooler - including discussion of procedure risks and [...] office in 4 weeks for a string check.[facility] NOM HealthcareHCG ( test) Ql (U)on 99-27-7633Issuvcavbediyn and review of laboratory resultsNormalParkland Health CenterPreg Test, UrNegativeNegativeNOSaint John's HospitalNOAL HealthcareUrinalysis macro (dipstick) panel (U)on 03-09-2025 Bilirubin, UAPositiveNegative - 4(70) +++ mg/dLNOMS HealthcareBlood, UANegative Negative - 50 Nathanael/mcLNOAL HealthcareClarity, UAClearNOMS HealthcareColor, UA AmberNOMS HealthcareGlucose, UANegativeNegative - 2000(110) ++++ mg/dLNOAL HealthcareInterpretation and review of laboratory resultsAbnormalParkland Health Center Ketones, UANegativeNegative - 160(16) ++++ mg/dLNOAL HealthcareLeukocytes, UA NegativeNegative - 500+++ Annie/mcLNOAL HealthcareNitrite, UANegativeNegative - PositiveNOMS HealthcarepH, UA65 - 9NOMS HealthcareProtein, UATraceNegative - 2000(20) ++++ mg/dLNOAL HealthcareSpec Grav, UA1.0251 - 1.03NOMS Healthcare Urobilinogen, UA1.00.2 - 12 mg/dLNOMS HealthcareNOMS HealthcareALL CBC WITH AUTO DIFFon 11-52-0033JEGYDNGCY ABSOLUTE SLDP2MAPD HealthcareBasophils/100 WBC (Bld) 0.2 %0.2 - 2.0 %NOMS HealthcareEosinophils/100 WBC (Bld)1.1 %0.9 - 7.0 %NOMResearch Medical CenterErythrocyte distribution width (RBC) [Ratio]11.7 %11.0 - 15.0 %NOMS HealthcareHematocrit (Bld) [Volume fraction]32.6 %Low36.0 - 48.0 %[facility] Health CenterHemoglobin (Bld) [Mass/Vol]11.3 g/dLLow12.0 - 16.0 g/dLNOSaint John's Hospital IMMATURE GRANULOCYTES ABS AUTO0.07HighParkland Health CenterImmature granulocytes/100 WBC (Bld)0.5 %0.0 - 0.5 %[facility] CenterInterpretation and review of laboratory resultsAbSelect Specialty HospitalLYMPHOCYTES ABSOLUTE QGSW2UVTTSaint John's Hospital Lymphocytes/100 WBC (Bld)13.3 %Low20.5 - 60.0 %[facility] CenterH (RBC) [Entitic mass]32.6 pg26.7 - 34.0 pgMissouri Baptist Medical CenterHC (RBC) [Mass/Vol]34.7 g/dL29.9 - 35.2 g/dLMissouri Baptist Medical CenterV (RBC) [Entitic vol]93.9 fL81.0 - 99.0 fLParkland Health CenterMONOCYTES ABSOLUTE AUTO1.2HighParkland Health CenterMonocytes/100 WBC (Bld) 7.7 %1.7 - 12.0 %[facility] Health CenterNEUTROPHILS ABSOLUTE AUTO11.7HighParkland Health Center Neutrophils/100 WBC (Bld)77.2 %High43.0 - 75.0 %[facility] Health CenterPlatelet mean volume (Bld) [Entitic vol]9.1 fLLow9.5 - 13.5 fLSt. Louis Children's Hospital EO #0.2NResearch [facility] Hospital BMS590NRNF [facility] RBC3.47LowNOReynolds County General Memorial Hospital WBC15.1High [facility] CenterCLINISYNCNMissouri Southern Healthcare CBC WITH PLATELET NO DIFFERENTIALon 16-77-2624Sdbmhjnfwao distribution width (RBC) [Ratio]11.6 %11.0 - 15.0 %[facility] Health CenterHematocrit (Bld) [Volume fraction]36.3 %36.0 - 48.0 %[facility] Hemoglobin (Bld) [Mass/Vol]12.6 g/dL12.0 - 16.0 g/dLParkland Health Center Interpretation and review of laboratory resultsAbnormPottstown Hospital (RBC) [Entitic mass]32.3 pg26.7 - 34.0 pgMissouri Baptist Medical CenterHC (RBC) [Mass/Vol]34.7 g/dL 29.9 - 35.2 g/dLMissouri Baptist Medical CenterV (RBC) [Entitic vol]93.1 fL81.0 - 99.0 fLParkland Health CenterPlatelet mean volume (Bld) [Entitic vol]9.2 fLLow9.5 - 13.5 fLNOMS HealthcareTBH CQV961LJKO HealthcareTBH RBC3.9LowNOMS Elyria Memorial HospitalTB WBC10.1NOMS HealthcareCLINISYNCNOMS HealthcareUS OB BPP W NON-STRESSon 98-58-8286NttStill[place] [address] Ultrasound Report Signed Patient: PHILLIP NORIEGA MR#: [id number] : 1995 Acct:[id number] Age/Sex: 29 / F ADM Date: 12/23/24 Loc: US Attending Dr: Jake Miramontes D.O. Ordering Physician: Jake Miramontes D.O. Date of Service: 12/23/24 Procedure(s): US OB BPP w non-stress Accession Number(s): [id number] cc: Jake Miramontes D.O.; Physician,Non-Staff Patti [place] [address] Patient Name: PHILLIP NORIEGA MRN: [id number] date: 1995 Sex: F Assigned Patient Location: [facility] Current Patient Location: Accession/Order Number: [id number] Exam Date: 12/23/2024 19:02 Report Date: 12/23/2024 19:06 At the request of: JAKE MIRAMONTES DO Procedure: US OB BPP w non-stress Exam: Biophysical profile. Reason for exam: Excessive growth. COMPARISON: BPP 12/17/2024. TECHNIQUE: Transabdominal imaging of the gravid uterus was obtained. FINDINGS: The medical technologist generalist reports a BPP of 8 out of 8. heart rate 132 bpm. JOHN is normal at 10.3 cm. US/US OB BPP w non-stress IMPRESSION: BPP 8 out of 8. Impression dictated by: Robert Ku Jr., D.O.12/23/2024 7:06 PM Dictation Location: [place] [address] Electronically authenticated by: [id number] Y Date: 12/23/2024 19:06 Dictated By: Robert Ku M.D. Signed By: 12/23/241908 DD/ 05 TD/TT: Bindery Worker:KINGSTONadiologbaldev, Radiologist, - 12/23/2024 [place] [address] Ultrasound Report Signed Patient: PHILLIP NORIEGA MR#: [id number] : 1995 Acct:[id number] Age/Sex: 29 / F ADM Date: 12/23/24 Loc: US Attending Dr: Jake Miramontes D.O. Ordering Physician: Jake Miramontes D.O. Date of Service: 12/23/24 Procedure(s): US OB BPP w non-stress Accession Number(s): [id number] cc: Jake Miramontes D.O.; Physician,Non-Staff Patti [facility] [place] [address] Patient Name: PHILLIP NORIEGA MRN: [id number] date: 1995 Sex: F Assigned Patient Location: [facility] Current Patient Location: Accession/Order Number: [id number] Exam Date: 12/23/2024 19:02 Report Date: 12/23/2024 19:06 At the request of: JAKE MIRAMONTES DO Procedure: US OB BPP w non-stress Exam: Biophysical profile. Reason for exam: Excessive growth. COMPARISON: BPP 12/17/2024. TECHNIQUE: Transabdominal imaging of the gravid uterus was obtained. FINDINGS: The medical technologist generalist reports a BPP of 8 out of 8. heart rate 132 bpm. JOHN is normal at 10.3 cm. US/US OB BPP w non-stress IMPRESSION: BPP 8 out of 8. Impression dictated by: Robert Ku Jr., D.O.12/23/2024 7:06 PM Dictation Location: [place] [address] Electronically authenticated by: [id number] Y Date: 12/23/2024 19:06 Dictated By: Robert Ku M.D. Signed By: 12/23/241908 DD/ 05 TD/TT: Bindery Worker: KESHA HwangRadiology Study observation (narrative)KESHA HealthcareUS OB BPP W NON-STRESSOrdered By: Radiologist Radiology on 31-11-7303NARI Healthcare Work Phone: US OB GROWTHon [phone] [address] Ultrasound Report Signed Patient: PHILLIP NORIEGA MR#: [id number] : 1995 Acct:[id number] Age/Sex: 29 / F ADM Date: 12/23/24 Loc: US Attending Dr: Jake Miramontes D.O. Ordering Physician: Jake Miramontes D.O. Date of Service: 12/23/24 Procedure(s): US OB growth Accession Number(s): [id number] cc: Jake Miramontes D.O.; Physician,Non-Staff M.DMicheal [place] [id number] Patient Name: PHILLIP NORIEGA MRN: [id number] date: 1995 Sex: F Assigned Patient Location: [facility] Current Patient Location: US Accession/Order Number: [id number] Exam Date: 12/23/2024 19:07 Report Date: 12/23/2024 [...] Ku Jr., D.O.12/23/2024 7:09 PM Dictation Location: [place] [address] Electronically authenticated by: [id number] Y Date: 12/23/2024 19:09 Dictated By: Robert Ku M.D. Signed By: 12/23/241911 DD/ 08 TD/TT: Bindery Worker:Gavin Otoole, - 12/23/2024 [place] [address] Ultrasound Report Signed Patient: PHILLIP NORIEGA MR#: [id number] : 1995 Acct:[id number] Age/Sex: 29 / F ADM Date: 12/23/24 Loc: US Attending Dr: Jake Miramontes D.O. Ordering Physician: Jake Miramontes D.O. Date of Service: 12/23/24 Procedure(s): US OB growth Accession Number(s): [id number] cc: Jake Miramontes D.O.; Physician,Non-Staff Patti [facility] [place] [address] Patient Name: PHILLIP NORIEGA MRN: [facility]:[id number] date: 1995 Sex: F Assigned Patient Location: [facility] Current Patient Location: Accession/Order Number: [id number] Exam Date: 12/23/2024 19:07 Report Date: 12/23/2024 [...] Ku Jr., D.O.12/23/2024 7:09 PM Dictation Location: [place] [address] Electronically authenticated by: [id number] Y Date: 12/23/2024 19:09 Dictated By: Robert Ku M.D. Signed By: 12/23/241911 DD/ 08 TD/TT: Bindery Worker: [facility] HOSPITALHesham HealthcareRadiology Study observation (narrative)[facility] HealthcareUS OB GROWTHOrdered By: Radiologist Radiology on 21-53-0375EWEY Healthcare Work Phone: all MISCELLANEOUS TESTon 13-46-9360IZVOVTHVIGWJP TEST COMMENT.[facility] HealthcareComment on above:Test Ordered: [id number] Strep Gp B Culture+Rflx Strep Gp B Culture+Rflx Negative CB Reference Range: Negative Centers for Disease Control and Prevention (CDC) and [place] Congress of Obstetricians and Gynecologists (ACOG) guidelines [...] resistance to clindamycin is noted. Performed at: [facility] Lab[address] [id number] National Sales: Aung Adams PhD, Phone: [phone] GROUP B STREP [id number] CULTURE, GROUP B STREP WITH SUSCEPTIBILITY CLINISYNCNOAL HealthcareUS OB BPP W NON-STRESSon 42-69-7178Aox[place] [address] Ultrasound Report Signed Patient: PHILLIP NORIEGA MR#: [id number] : 1995 Acct:[id number] Age/Sex: 29 / F ADM Date: 12/16/24 Loc: US Attending Dr: Jake Miramontes D.O. Ordering Physician: Jake Miramontes D.O. Date of Service: 12/16/24 Procedure(s): US OB BPP w non-stress Accession Number(s): [id number] cc: Jake Miramontes D.O.; Physician,Non-Staff Patti [facility] [place] [address] Patient Name: PHILLIP NORIEGA MRN: [facility]:[id number] date: 1995 Sex: F Assigned Patient Location: [facility] Current Patient Location: Accession/Order Number: [id number] Exam Date: 12/17/2024 10:08 Report Date: 12/17/2024 10:11 At the request of: JAKE MIRAMONTES DO Procedure: US OB BPP w non-stress BIOPHYSICAL PROFILE: CLINICAL INFORMATION: Excessive growth O36.60x0 COMPARISON: 12/10/2024 There is a fetus in cephalic presentation. Reported gestational age is 36 weeks 2 days. The heart rate beats per minute. FINDINGS: TONE: 1 or [...] Tamy Jiménez M.D.12/17/2024 10:11 AM Dictation Location: [place] [address] Electronically authenticated by: [id number] Y Date: 12/17/2024 10:11 Dictated By: Tamy Jiménez M.D. Signed By: 12/17/24 1237 DD/ 1011 TD/TT: Bindery Worker:KINGSTONadiologbaldev, Radiologist, - 12/17/2024 [place] [address] Ultrasound Report Signed Patient: PHILLIP NORIEGA MR#: [id number] : 1995 Acct:[id number] Age/Sex: 29 / F ADM Date: 12/16/24 Loc: US Attending Dr: Jake Miramontes D.O. Ordering Physician: Jake Miramontes D.O. Date of Service: 12/16/24 Procedure(s): US OB BPP w non-stress Accession Number(s): [id number] cc: Jake Miramontes D.O.; Physician,Non-Staff Patti [facility] [address] [place] [address] Patient Name: PHILLIP NORIEGA MRN: [id number] date: 1995 Sex: F Assigned Patient Location: [facility] Current Patient Location: Accession/Order Number: [id number] Exam Date: 12/17/2024 10:08 Report Date: 12/17/2024 10:11 At the request of: JAKE MIRAMONTES DO Procedure: US OB BPP w non-stress BIOPHYSICAL PROFILE: CLINICAL INFORMATION: Excessive growth O36.60x0 COMPARISON: 12/10/2024 There is a fetus in cephalic presentation. Reported gestational age is 36 weeks 2 days. The heart rate zlvcgbli094 beats per minute. FINDINGS: TONE: 1 or [...] Tamy Jiménez M.D.12/17/2024 10:11 AM Dictation Location: [facility] Electronically authenticated by: [id number] Y Date: 12/17/2024 10:11 Dictated By: Tamy Jiménez M.D. Signed By: 12/17/24 1237 DD/ 1011 TD/TT: Bindery Worker: KESHA HealthcareRadiology Study observation (narrative)NOM HealthcareUS OB BPP W NON-STRESSOrdered By: Radiologist Radiology on 46-90-9619JFJU Healthcare Work Phone: Urinalysis macro (dipstick) panel (U)on 12-16-2024 Bilirubin, UANegativeNegative - 4(70) +++ mg/dLNOMS HealthcareBlood, UANegative Negative - 50 Nathanael/mcLNOMS HealthcareClarity, UAClearNOMS HealthcareColor, UA AmberNOMS HealthcareGlucose, UANegativeNegative - 2000(110) ++++ mg/dLNOMS HealthcareInterpretation and review of laboratory resultsAbnormalNOMS Healthcare Ketones, UANegativeNegative - 160(16) ++++ mg/dLNOMS HealthcareLeukocytes, UA PositiveNegative - 500+++ Annie/mcLNOMS HealthcareComment on above:smallNitrite, UANegativeNegative - PositiveNOMS HealthcarepH, UA5.55 - 9NOMS Healthcare Protein, UATraceNegative - 2000(20) ++++ mg/dLNOMS HealthcareSpec Grav, UA1.0251 - 1.03NOMS HealthcareUrobilinogen, UA0.20.2 - 12 mg/dLNOMS HealthcareNOMS HealthcareUS OB BPP W NON-STRESSon 34-71-2176NfyStill[place] [address] Ultrasound Report Signed Patient: PHILLIP NORIEGA MR#: [id number] : 1995 Acct:[id number] Age/Sex: 29 / F ADM Date: 12/10/24 Loc: [facility] 250-[address]: Jake Miramontes D.O. Ordering Physician: Jake Miramontes D.O. Date of Service: 12/10/24 Procedure(s): US OB BPP w non-stress Accession Number(s): [id number] cc: Jake Miramontes D.O.; Physician,Non-Staff M.D. The [address] [address] Patient Name: PHILLIP NORIEGA MRN: [id number] date: 1995 Sex: F Assigned Patient Location: [facility] Current Patient Location: [facility] Accession/Order Number: [id number] Exam Date: 12/10/2024 10:46 Report Date: 12/10/2024 [...] Signed By: 12/10/24 1128 DD/ 1125 TD/TT: Bindery Worker:KINGSTONadiologbaldev, Radiologist, - 12/10/2024 [place] [address] Ultrasound Report Signed Patient: PHILLPI NORIEGA MR#: [id number] : 1995 Acct:[id number] Age/Sex: 29 / F ADM Date: 12/10/24 Loc: [facility] 250-[address]: Jake Miramontes D.O. Ordering Physician: Jake Miramontes D.O. Date of Service: 12/10/24 Procedure(s): US OB BPP w non-stress Accession Number(s): [id number] cc: Jake Miramontes D.O.; Physician,Non-Staff Patti The [address] [address] Patient Name: PHILLIP NORIEGA MRN: [id number] date: 1995 Sex: F Assigned Patient Location: [facility] Current Patient Location: [facility] Accession/Order Number: [id number] Exam Date: 12/10/2024 10:46 Report Date: 12/10/2024 [...] Signed By: 12/10/24 1128 DD/ 1125 TD/TT: Bindery Worker: KESHA HealthcareRadiology Study observation (narrative)NOMHesham HwangUS OB BPP W NON-STRESSOrdered By: Radiologist Radiology on 30-91-4818PO[facility] Work Phone: Urinalysis macro (dipstick) panel (U)on 12-02-2024 Bilirubin, UANegativeNegative - 4(70) +++ mg/dLNOMS HealthcareBlood, UANegative Negative - 50 Nathanael/mcLNOMS HealthcareClarity, UAClearNOMS HealthcareColor, UA YellowNOMS HealthcareGlucose, UANegativeNegative - 2000(110) ++++ mg/dLNOMS HealthcareInterpretation and review of laboratory resultsAbnormalNOMS Healthcare Ketones, UANegativeNegative - 160(16) ++++ mg/dLNOMS HealthcareLeukocytes, UA TraceNegative - 500+++ Annie/mcLNOMS HealthcareNitrite, UANegativeNegative - PositiveNOMS HealthcarepH, UA75 - 9NOMS HealthcareProtein, UATraceNegative - 2000(20) ++++ mg/dLNOMS HealthcareSpec Grav, UA1.0251 - 1.03NOMS Healthcare Urobilinogen, UA1.00.2 - 12 mg/dLNOMS HealthcareNOMS HealthcareUrinalysis macro (dipstick) panel (U)on 89-23-0018Rbbhwxgqi, UANegativeNegative - 4(70) +++ mg/dL NOMS HealthcareBlood, UANegativeNegative - 50 Nathanael/mcLNOMS HealthcareClarity, UA ClearNOMS HealthcareColor, UAYellowNOMS HealthcareGlucose, UANegativeNegative - 2000(110) ++++ mg/dLNOMS HealthcareInterpretation and review of laboratory resultsAbnormalNOMS HealthcareKetones, UANegativeNegative - 160(16) ++++ mg/dL NOMS HealthcareLeukocytes, UATraceNegative - 500+++ Annie/[facility] HospitalNOAL Healthcare Nitrite, UANegativeNegative - PositiveNOMS HealthcarepH, UA6.55 - 9NOMS HealthcareProtein, UANegativeNegative - 1999(20) ++++ mg/dLNOMS HealthcareSpec Grav, UA1.0251 - 1.03NOMS HealthcareUrobilinogen, UA0.20.2 - 12 mg/dLNOMS HealthcareNOMS HealthcareCBC AND AUTO DIFFon 51-59-3366OZXJTDMT BASOPHIL0.0 X10E9/LNormal0.0-0.2[facility]clair Medical CenterComment on above:Performed By: #### 57661-1 #### [facility] ([id number]) [address] [place] [address] #### 2839-9 #### [facility] ([id number]) [address] [place], [place] [address]AGYDQDXT NEUTROPHIL7.2 X10E9/LHigh1.5-6.6Pro[facility] Montclair Medical CenterComment on above:Performed By: #### 96422-0 #### [facility] ([id number]) [address] [place] [address] #### 2839-9 #### [facility] ([id number]) [address] [place], [place] [address]Riivuhpex/100 WBC (Bld)0.3 %[facility] Comment on above:Performed By: #### 45026-4 #### [facility] ([id number]) [address] [place] [address] #### 2839-9 #### [facility] ([id number]) [address] [place], [place] [address]Aicnmoeojec (Bld) [#/Vol]0.3 10*3/uLNormal0.0-0.4[facility] Ahuja Medical CenterComment on above:Performed By: #### 09413-1 #### [facility] ([id number]) [address] [place] [address] #### 2839-9 #### [facility] ([id number]) [address], [address] [place], [place] [address]Oeqnklpafno/100 WBC (Bld)2.9 %NormalUniversity Hospitals Ahuja Medical Center Comment on above:Performed By: #### 78938-2 #### [facility] ([id number]) [address] [place] [address] #### 2839-9 #### [facility] ([id number]) [address] [place], [place] [address]Gdcbqfpanyd distribution width (RBC) [Ratio]12.5 %Normal 11.5-15.0ProSt. Luke'S Health – The Woodlands HospitalComment on above:Performed By: #### 17425-7 #### [facility] ([id number]) [address] [place] [address] #### 2839-9 #### [facility] ([id number]) [address], [address] [place], [place] [address]Ckkpmahife (Bld) [Volume fraction]36.8 %Roxbyw45-14FcaGmfcdhUniversity Hospitals Ahuja Medical CenterComment on above:Performed By: #### 97788-5 #### [facility] ([id number]) [address] [place] [address] #### 2839-9 #### [facility] ([id number]) [address], [address] [place], [place] [address]Eiuhsmuojc (Bld) [Mass/Vol]12.7 g/iRSwnuao55.7-15.5POhioHealth Berger HospitalComment on above:Performed By: #### 63658-7 #### [facility] ([id number]) [address] [place] [address] #### 2839-9 #### [facility] ([id number]) [address] [place], [place] [address]Vvaqbxyabne (Bld) [#/Vol]1.9 10*3/uLNormal1.0-3.5POhioHealth Berger HospitalComment on above:Performed By: #### 18239-6 #### [facility] ([id number]) [address] [place] [address] #### 2839-9 #### [facility] ([id number]) [address], [address] [place], [place] [address]Eylrotxtrrq/100 WBC (Bld)18.7 %NormalProSt. Luke'S Health – The Woodlands Hospital Comment on above:Performed By: #### 56430-4 #### [facility] ([id number]) [address] [place] [address] #### 2839-9 #### [facility] ([id number]) [address], [address] [place], [place] [address]CPJ (RBC) [Entitic mass]32.5 wjUexxuj20-56HpaEtyuxdSt. Luke'S Health – The Woodlands HospitalComment on above:Performed By: #### 46778-0 #### [facility] ([id number]) [address] [place] [address] #### 2839-9 #### [facility] ([id number]) [address], [address] [place], [place] [address]MJGP (RBC) [Mass/Vol]34.5 g/bEWykeee06-77HhfOevwnnSt. Luke'S Health – The Woodlands HospitalComment on above:Performed By: #### 01430-1 #### [facility] ([id number]) [address] [place] [address] #### 2839-9 #### [facility] ([id number]) [address], [address] [place], [place] [address]TZH (RBC) [Entitic vol]94 kCDmzzfw41-353YewOlkjrb Fremont HospitalComment on above:Performed By: #### 03532-6 #### [facility] ([id number]) [address] [place] [address] #### 2839-9 #### [facility] ([id number]) [address], [address] [place], [place] [address]Zaacopvyx (Bld) [#/Vol]0.6 10*3/uLNormal0-0.9ProSt. Luke'S Health – The Woodlands HospitalComment on above:Performed By: #### 68761-6 #### [facility] ([id number]) [address] [place] [address] #### 2839-9 #### [facility] ([id number]) [address], [address] [place], [place] [address]Aovtbvemz/100 WBC (Bld)6.4 %NormalProSt. Luke'S Health – [facility] Woodlands Hospital Comment on above:Performed By: #### 30082-2 #### [facility] ([id number]) [address] [place] [address] #### 2839-9 #### [facility] ([id number]) [address], [address] [place], [place] [address]Mcofmqonhjv/100 WBC (Bld)71.7 %NormalUniversity Hospitals Ahuja Medical Center Comment on above:Performed By: #### 28377-8 #### [facility] ([id number]) [address] [place] [address] #### 2839-9 #### [facility] ([id number]) [address], [address] [place], [place] [address]Ftbsfzsc mean volume (Bld) [Entitic vol]7.3 fLNormal7-12 [facility]ja Medical CenterComment on above:Performed By: #### 62764-0 #### [facility] ([id number]) [address] [place] [address] #### 2839-9 #### [facility] ([id number]) [address], [address] [place], [place] [address]Yfueaeanc (Bld) [#/Vol]218 10*3/pAKuwroz101-701RfvMlrwrxUniversity Hospitals Ahuja Medical CenterComment on above:Performed By: #### 53600-2 #### [facility] ([id number]) [address] [place] [address] #### 2839-9 #### [facility] ([id number]) [address], [address] [place], [place] [address]CNE COUNT3.89 X10E12/LNormal3.80-5.20[facility] Comment on above:Performed By: #### 44338-7 #### [facility] ([id number]) [address] [facility], [place] [address] #### 2839-9 #### [facility] ([id number]) [address] [place] [address], [address] [place], [place] [address]NRU (Bld) [#/Vol]10.1 10*3/uLNormal4.0-11.0[facility]clair Medical CenterComment on above:Performed By: #### 25056-0 #### [facility] ([id number]) [address] [facility], [place] [address] #### 2839-9 #### [facility] ([id number]) [address] [place] [address], [address] [place], [place] [address]LQP W Auto Differential panel (Bld)on 72-22-9044OTDBAVZN SPXLYYXG8RTKB HealthcareComment on above:PERFORMED AT [address],[place], [place] [address]Sbltiuxng/100 WBC (Bld)0.3 %NOMS HealthcareEosinophils (Bld) [#/Vol]0.3 10*3/uLNOAL HealthcareEosinophils/100 WBC (Bld)2.9 %NOMResearch Medical CenterErythrocyte distribution width (RBC) [Ratio]12.5 %11.5 - 15.0 %NOM HealthcareHematocrit (Bld) [Volume fraction]36.8 %35 - 47 %NOMResearch Medical CenterHemoglobin (Bld) [Mass/Vol]12.7 g/dL11.7 - 15.5 g/dLParkland Health Center Interpretation and review of laboratory resultsAbnormalParkland Health Center Lymphocytes (Bld) [#/Vol]1.9 10*3/uLNOMS HealthcareLymphocytes/100 WBC (Bld)18.7 %NOM HealthcareMCH (RBC) [Entitic mass]32.5 pg27 - 34 pgNOAL HealthcareMCHC (RBC) [Mass/Vol]34.5 g/dL32 - 36 g/dLNOSaint John's HospitalMCV (RBC) [Entitic vol]94 fL 80 - 100 fLNOAL HealthcareMonocytes (Bld) [#/Vol]0.6 10*3/uLNOAL Healthcare Monocytes/100 WBC (Bld)6.4 %NOMS HealthcareNeutrophils (Bld) [#/Vol]7.2 10*3/uL HighNOMS HealthcareNeutrophils/100 WBC (Bld)71.7 %NOMS HealthcarePlatelet mean volume (Bld) [Entitic vol]7.3 fL7 - 12 fLNOAL HealthcarePlatelets (Bld) [#/Vol] 218 10*3/uLNOMS HealthcareRBC (Bld) [#/Vol]3.89 10*6/uLNOMS HealthcareWBC corrected for nucl RBC Auto (Bld) [#/Vol]10.1NOMS [facility] Urinalysis macro (dipstick) panel (U)on 95-17-9853Geycbpwut, UANegativeNegative - 4(70) +++ mg/dLNOMS HealthcareBlood, UANegativeNegative - 50 Nathanael/mcLNOMS HealthcareClarity, UAClearNOMS HealthcareColor, UAYellowNOMS HealthcareGlucose, UANegativeNegative - 1999(110) ++++ mg/dLNOAL HealthcareInterpretation and review of laboratory resultsAbnormalCEDAR CITY [facility] HealthcareKetones, UANegativeNegative - 160(16) ++++ mg/dLNOAL HealthcareLeukocytes, UATraceNegative - 500+++ Annie/mcL [facility] HealthcareNitrite, UANegativeNegative - PositiveNOAL HealthcarepH, UA65 - 9 [facility] HealthcareProtein, UAPositiveNegative - 2000(20) ++++ mg/dLNOAL Healthcare Comment on above:traceSpec Grav, UA1.031 - 1.03NOAL HealthcareUrobilinogen, UA 0.20.2 - 12 mg/dLNOMercy Hospital St. John's HealthcareUrinalysis macro (dipstick) panel (U)on 82-61-1133Pknffirwy, UANegativeNegative - 4(70) +++ mg/dLNOAL Healthcare Blood, UANegativeNegative - 50 Nathanael/mcLNOMS HealthcareClarity, UAClearNOMS HealthcareColor, UAYellowNOMS HealthcareGlucose, UANegativeNegative - 2000(110) ++++ mg/dLNOMS HealthcareInterpretation and review of laboratory resultsAbnormal NOMS HealthcareKetones, UANegativeNegative - 160(16) ++++ mg/dLNOMS Healthcare Leukocytes, UAPositiveNegative - 500+++ Annie/mcLNOMS HealthcareComment on above: smallNitrite, UANegativeNegative - PositiveNOMS HealthcarepH, UA6.55 - 9NOMS HealthcareProtein, UANegativeNegative - 2000(20) ++++ mg/dLNOMS HealthcareSpec Grav, UA1.0251 - 1.03NOMS HealthcareUrobilinogen, UA1.00.2 - 12 mg/dLNOMS HealthcareNOMS HealthcareUS OB GROWTHon 93-68-5437[place]ykStill[place] [address] Ultrasound Report Signed Patient: PHILLIP NORIEGA MR#: [id number] : 1995 Acct:[id number] Age/Sex: 29 / F ADM Date: 10/15/24 Loc: [facility] Attending Dr: Jake Miramontes D.O. Ordering Physician: Jake Miramontes D.O. Date of Service: 10/15/24 Procedure(s): US OB growth Accession Number(s): [id number] cc: Jake Miramontes D.O.; Physician,Non-Staff M.Charlee The [address] [address] Patient Name: PHILLIP NORIEGA MRN: [facility]:[id number] date: 1995 Sex: F Assigned Patient Location: [facility] Current Patient Location: [facility] Accession/Order Number: [id number] Exam Date: 10/15/2024 15:09 Report Date: 10/15/2024 16:12 At the request of: JAKE MIRAMONTES Procedure: US OB growth EXAMINATION: US [...] the 97th percentile Electronically authenticated by: NATALIE LOREDO Date: 10/15/2024 16:12 Dictated By: Natalie Loredo M.D. Signed By: 10/15/241613 DD/ 11 TD/TT: Bindery Worker:TBHRadiology, Radiologist, MD - 10/15/2024 [place] [address] Ultrasound Report Signed Patient: PHILLIP NORIEGA MR#: [id number] : 1995 Acct:[id number] Age/Sex: 29 / F ADM Date: 10/15/24 Loc: [facility] Attending Dr: Jake Miramontes D.O. Ordering Physician: Jake Miramontes D.O. Date of Service: 10/15/24 Procedure(s): US OB growth Accession Number(s): [id number] cc: Jake Miramontes D.O.; Physician,Non-Staff Patti The [address] [address] Patient Name: PHILLIP NORIEGA MRN: [id number]:[id number] date: 1995 Sex: F Assigned Patient Location: [facility] Current Patient Location: [facility] Accession/Order Number: [id number] Exam Date: 10/15/2024 15:09 Report Date: 10/15/2024 16:12 At the request of: JAKE MIRAMONTES Procedure: US OB growth EXAMINATION: US [...] the 97th percentile Electronically authenticated by: NATALIE LOREDO Date: 10/15/2024 16:12 Dictated By: Natalie Loredo M.D. Signed By: 10/15/241613 DD/ 11 TD/TT: Bindery Worker: [facility] HealthcareRadiology Study observation (narrative)[facility] Health CenterUS OB GROWTHOrdered By: Radiologist Radiology on 59-61-5158ZEZRParkland Health Center Work Phone: Urinalysis macro (dipstick) panel (U)on 09-29-2024 Bilirubin, UANegativeNegative - 4(70) +++ mg/dLNOMS HealthcareBlood, UANegative Negative - 50 Nathanael/mcLNOMS HealthcareClarity, UAClearNOMS HealthcareColor, UA YellowNOMS HealthcareGlucose, UANegativeNegative - 2000(110) ++++ mg/dLNOMS HealthcareInterpretation and review of laboratory resultsNormalNOMS Healthcare Ketones, UANegativeNegative - 160(16) ++++ mg/dLNOMS HealthcareLeukocytes, UA NegativeNegative - 500+++ Annie/mcLNOMS HealthcareNitrite, UANegativeNegative - PositiveNOMS HealthcarepH, UA75 - 9NOAL HealthcareProtein, UANegativeNegative - 2000(20) ++++ mg/dLNOAL HealthcareSpec Grav, UA1.0251 - 1.03NOAL Healthcare Urobilinogen, UA1.00.2 - 12 mg/dLNOAL HealthcareNOAL HealthcareNo Panel InformationOrdered By: Radiologist Radiology on 68-24-4425QXJYParkland Health Center Work Phone: No Panel Informationon 27-48-5465Jaekbxrlc Study observation (narrative)NOMHesham HealthcareUS OB ANATOMYon 27-59-0474[place]Still[place] [address] Ultrasound Report Signed Patient: PHILLIP NORIEGA MR#: [id number] : 1995 Acct:[id number] Age/Sex: 29 / F ADM Date: 09/01/24 Loc: [facility] Attending Dr: Jake Miramontes D.O. Ordering Physician: Jake Miramontes D.O. Date of Service: 09/01/24 Procedure(s): US OB anatomy Accession Number(s): [id number] cc: Jake Miramontes D.O.; Physician,Non-Staff M.Charlee The [place] [id number] Patient Name: PHILLIP NORIEGA MRN: [id number] date: 1995 Sex: F Assigned Patient Location: [facility] Current Patient Location: [facility] Accession/Order Number: [id number] Exam Date: 09/01/2024 10:26 Report Date: 09/01/2024 11:50 At the request of: JAKE MIRAMONTES Procedure: US OB anatomy EXAMINATION: US [...] July 28, 2007. Electronically authenticated by: NATALIE LOREDO Date: 09/01/2024 11:50 Dictated By: Natalie Loredo M.D. Signed By: 09/01/24 1153 DD/ 1150 TD/TT: Bindery Worker:TBHRadiology, Radiologist, - 09/01/2024 [place] [address] Ultrasound Report Signed Patient: PHILLIP NORIEGA MR#: [id number] : 1995 Acct:[id number] Age/Sex: / ADM Date: 09/01/24 Loc: [facility] Attending Dr: Jake Miramontes D.O. Ordering Physician: Jake Miramontes D.O. Date of Service: 09/01/24 Procedure(s): US OB anatomy Accession Number(s): [id number] cc: Jake Miramontes D.O.; Physician,Non-Staff Patti [address] [address] Patient Name: PHILLIP NORIEGA MRN: [id number] date: 1995 Sex: F Assigned Patient Location: [facility] Current Patient Location: [facility] Accession/Order Number: [id number] Exam Date: 09/01/2024 10:26 Report Date: 09/01/2024 11:50 At the request of: JAKE MIRAMONTES Procedure: US OB anatomy EXAMINATION: US [...] July 28, 2007. Electronically authenticated by: NATALIE LOREDO Date: 09/01/2024 11:50 Dictated By: Natalie Loredo M.D. Signed By: 09/01/24 1153 DD/ 1150 TD/TT: Bindery Worker: KESHA Becerra OB CERVICAL LENGTHon 36-47-1383[place]Still[place] [address] Ultrasound Report Signed Patient: PHILLIP NORIEGA MR#: [id number] : 1995 Acct:[id number] Age/Sex: 29 / F ADM Date: 09/01/24 [facility] Attending Dr: Jake Miramontes D.O. Ordering Physician: Jake Miramontes D.O. Date of Service: 09/01/24 Procedure(s): US OB cervical length Accession Number(s): [id number] cc: Jake Miramontes D.O.; Physician,Non-Staff Patti The [place] [id number] Patient Name: PHILLIP NORIEGA MRN: [facility]:[id number] date: 1995 Sex: F Assigned Patient Location: [facility] Current Patient Location: [facility] Accession/Order Number: [id number] Exam Date: 09/01/2024 10:25 Report Date: 09/01/2024 11:50 At the request of: JAKE MIRAMONTES Procedure: US OB cervical length EXAMINATION: [...] July 28, 2007. Electronically authenticated by: NATALIE LOREDO Date: 09/01/2024 11:50 Dictated By: Natalie Loredo M.D. Signed By: 09/01/24 1153 DD/ 1150 TD/TT: Bindery Worker:TBHRadiology, Radiologist, - 09/01/2024 [place] [address] Ultrasound Report Signed Patient: PHILLIP NORIEGA MR#: [id number] : 1995 Acct:[id number] Age/Sex: 29 / F ADM Date: 09/01/24 Loc: [facility] Attending Dr: Jake Miramontes D.O. Ordering Physician: Jake Miramontes D.O. Date of Service: 09/01/24 Procedure(s): US OB cervical length Accession Number(s): [id number] cc: Jake Miramontes D.O.; Physician,Non-Staff Patti The [place] [address] Patient Name: PHILLIP NORIEGA MRN: [id number] date: 1995 Sex: F Assigned Patient Location: [facility] Current Patient Location: [facility] Accession/Order Number: [id number] Exam Date: 09/01/2024 10:25 Report Date: 09/01/2024 11:50 At the request of: JAKE MIRAMOTNES Procedure: US OB cervical length EXAMINATION: US [...] July 28, 2007. Electronically authenticated by: NATALIE LOREDO Date: 09/01/2024 11:50 Dictated By: Natalie Loredo M.D. Signed By: 09/01/24 1153 DD/ 1150 TD/TT: Bindery Worker: KESHA HealthcareUrinalysis macro (dipstick) panel (U)on 75-25-4144Ehipvzkse, UA NegativeNegative - 4(70) +++ mg/dLNOMS HealthcareBlood, UANegativeNegative - 50 Nathanael/mcLNOMS HealthcareClarity, UAClearNOMS HealthcareColor, UAYellowNOMS HealthcareGlucose, UANegativeNegative - 2000(110) ++++ mg/dLNOMS Healthcare Interpretation and review of laboratory resultsAbnormalNOMS HealthcareKetones, UANegativeNegative - 160(16) ++++ mg/dLNOAL HealthcareLeukocytes, UATrace Negative - 500+++ Annie/mcLNOMS HealthcareNitrite, UANegativeNegative - Positive NOMS HealthcarepH, UA65 - 9NOMS HealthcareProtein, UANegativeNegative - 2000(20) ++++ mg/dLNOAL HealthcareSpec Grav, UA1.031 - 1.03NOMS HealthcareUrobilinogen, UA0.20.2 - 12 mg/dLNOMS HealthcareNOAL HealthcareCBC AND AUTO DIFFon 08-26-2024 ABSOLUTE BASOPHIL0.0 X10E9/LNormal0.0-0.2[facility] Montclair Medical CenterComment on above:Performed By: #### 46910-5 #### [facility] ([id number]) [address] [place] [address] #### 2839-9 #### [facility] ([id number]) [address] [facility], [address] [place], [place] [address]OTMMVCRR NEUTROPHIL5.8 X10E9/LNormal1.5-6.6[facility]huja Medical CenterComment on above:Performed By: #### 95290-8 #### [facility] ([id number]) [address] [place] [address] #### 2839-9 #### [facility] ([id number]) [address] [facility], [address] [place], [place] [address]Ugraumwsu/100 WBC (Bld)0.2 %NormalProSt. Luke'S Health – The [facility]lands Hospital Comment on above:Performed By: #### 01977-5 #### [facility] ([id number]) [address] [place] [address] #### 2839-9 #### [facility] ([id number]) [address] [facility] [place], [place] [address]Kyhvjigkygr (Bld) [#/Vol]0.2 10*3/uLNormal0.0-0.4[facility] Ahuja Medical CenterComment on above:Performed By: #### 72290-8 #### [facility] ([id number]) [address] [place] [address] #### 2839-9 #### [facility] ([id number]) [address], [address] [place], [place] [address]Xkcozxofftv/100 WBC (Bld)2.9 %NormalProSt. Luke'S Health – [facility] Woodlands Hospital Comment on above:Performed By: #### 83394-2 #### [facility] ([id number]) [address] [place] [address] #### 2839-9 #### [facility] ([id number]) [address], [address] [place], [place] [address]Exitvxmqapy distribution width (RBC) [Ratio]13.0 %Normal 11.5-15.0ProSt. Luke'S Health – The Woodlands HospitalComment on above:Performed By: #### 95825-0 #### [facility] ([id number]) [address] [place] [address] #### 2839-9 #### [facility] ([id number]) [address], [address] [place], [place] [address]Pnviouqdoi (Bld) [Volume fraction]31.5 %Mlv71-22ZyxHfflclSt. Luke'S Health – The Woodlands HospitalComment on above:Performed By: #### 34800-1 #### [facility] ([id number]) [address] [place] [address] #### 2839-9 #### [facility] ([id number]) [address], [address] [place], [place] [address]Gesqdbohra (Bld) [Mass/Vol]10.8 g/dLLow11.7-15.5POhioHealth Berger HospitalComment on above:Performed By: #### 96258-1 #### [facility] ([id number]) [address] [place] [address] #### 2839-9 #### [facility] ([id number]) [address], [address] [place], [place] [address]Ntlyvyumqsw (Bld) [#/Vol]1.3 10*3/uLNormal1.0-3.5POhioHealth Berger HospitalComment on above:Performed By: #### 68609-9 #### [facility] ([id number]) [address] [place] [address] #### 2839-9 #### [facility] ([id number]) [address], [address] [place], [place] [address]Cjidaqpnnqu/100 WBC (Bld)16.5 %NormalUniversity Hospitals Ahuja Medical Center Comment on above:Performed By: #### 93071-8 #### [facility] ([id number]) [address] [place] [address] #### 2839-9 #### [facility] ([id number]) [address], [address] [place], [place] [address]HUQ (RBC) [Entitic mass]32.6 hhXrwepf00-85IzyCukopkSt. Luke'S Health – The Woodlands HospitalComment on above:Performed By: #### 93456-4 #### [facility] ([id number]) [address] [place] [address] #### 2839-9 #### [facility] ([id number]) [address], [address] [place], [place] [address]XOOF (RBC) [Mass/Vol]34.4 g/qCPmynnl42-60UrmUujlaoSt. Luke'S Health – The Woodlands HospitalComment on above:Performed By: #### 22198-3 #### [facility] ([id number]) [address] [place] [address] #### 2839-9 #### [facility] ([id number]) [address], [address] [place], [place] [address]LNK (RBC) [Entitic vol]95 aOFjtkwt80-003WqoVghqal Fremont HospitalComment on above:Performed By: #### 46766-8 #### [facility] ([id number]) [address] [place] [address] #### 2839-9 #### [facility] ([id number]) [address] [facility] [place], [place] [address]Qojiaaetj (Bld) [#/Vol]0.6 10*3/uLNormal0-0.9[facility] Ahuja Medical CenterComment on above:Performed By: #### 08701-1 #### [facility] ([id number]) [address] [place] [address] #### 2839-9 #### [facility] ([id number]) [address] [facility] [place], [place] [address]Ebzgfccvc/100 WBC (Bld)8.0 %NormalUniversity Hospitals Ahuja Medical Center Comment on above:Performed By: #### 66806-4 #### [facility] ([id number]) [address] [place] [address] #### 2839-9 #### [facility] ([id number]) [address], [address] [place], [place] [address]Botmurizdry/100 WBC (Bld)72.4 %NormalUniversity Hospitals Ahuja Medical Center Comment on above:Performed By: #### 96139-9 #### [facility] ([id number]) [address] [place] [address] #### 2839-9 #### [facility] ([id number]) [address] [facility] [place], [place] [address]Jlvaxhyx mean volume (Bld) [Entitic vol]6.7 fLLow7-12[facility]clair Medical CenterComment on above:Performed By: #### 80818-6 #### [facility] ([id number]) [address] [place] [address] #### 2839-9 #### [facility] ([id number]) [address] [facility] [place], [place] [address]Bkdnvfwwn (Bld) [#/Vol]188 10*3/rZCdwdtx129-330KooWihdsr Fremont HospitalComment on above:Performed By: #### 26293-6 #### [facility] ([id number]) [address] [place] [address] #### 2839-9 #### [facility] ([id number]) [address] [facility] [place], [place] [address]AGG COUNT3.33 X10E12/LLow3.80-5.20[facility] Comment on above:Performed By: #### 42534-2 #### [facility] ([id number]) [address] [place] [address] #### 2839-9 #### [facility] ([id number]) [address] [facility] [place], [place] [address]WOU (Bld) [#/Vol]8.0 10*3/uLNormal4.0-11.0ProSt. Luke'S Health – The Woodlands HospitalComment on above:Performed By: #### 06185-2 #### [facility] ([id number]) [address] [place] [address] #### 2839-9 #### [facility] ([id number]) [address], [address] [place], [place] [address]OMCSPHNXFQTNN METABOLIC PANELon 60-35-0608Mllbjav [Mass/Vol]2.9 g/dLLow3.2-5.3POhioHealth Berger HospitalComment on above:Performed By: #### 74460-5 #### [facility] ([id number]) [address] [place] [address] #### 2839-9 #### [facility] ([id number]) [address], [address] [place], [place] [address]CLP [Catalytic activity/Vol]34 U/IDds93-595WosIvgaikSt. Luke'S Health – The Woodlands HospitalComment on above:Performed By: #### 18955-3 #### [facility] ([id number]) [address] [place] [address] #### 2839-9 #### [facility] ([id number]) [address], [address] [place], [place] [address]KOI [Catalytic activity/Vol]45 U/LHigh0-31POhioHealth Berger HospitalComment on above:Performed By: #### 05617-9 #### [facility] ([id number]) [address] [place] [address] #### 2839-9 #### [facility] ([id number]) [address], [address] [place], [place] [address]Dytfi gap [Moles/Vol]5 mmol/LNormal5-15ProSt. Luke'S Health – The Woodlands HospitalComment on above:Performed By: #### 30433-2 #### [facility] ([id number]) [address] [place] [address] #### 2839-9 #### [facility] ([id number]) [address], [address] [place], [place] [address]CRK [Catalytic activity/Vol]44 U/LHigh0-41[facility]huja Medical CenterComment on above:Performed By: #### 73296-3 #### [facility] ([id number]) [address] [place] [address] #### 2839-9 #### [facility] ([id number]) [address], [address] [place], [place] [address]Zrdsjrnds [Mass/Vol]0.4 mg/dLNormal0.3-1.2POhioHealth Berger HospitalComment on above:Performed By: #### 21566-8 #### [facility] ([id number]) [address] [place] [address] #### 2839-9 #### [facility] ([id number]) [address], [address] [place] [address]Oqlqiah [Mass/Vol]8.4 mg/dLLow8.5-10.5POhioHealth Berger Hospital Comment on above:Performed By: #### 48734-0 #### [facility] ([id number]) [address] [place] [address] #### 2839-9 #### [facility] ([id number]) [address], [address] [place], [place] [address]Wixybxls [Moles/Vol]105 mmol/TYozhrm79-602XsrJikjvzUniversity Hospitals Ahuja Medical CenterComment on above:Performed By: #### 80207-7 #### [facility] ([id number]) [address] [place] [address] #### 2839-9 #### [facility] ([id number]) [address], [address] [place], [place] [address]SL0 [Moles/Vol]23 mmol/MAhlhyr48-23FdmWysuqjOhioHealth Berger Hospital Comment on above:Performed By: #### 86125-7 #### [facility] ([id number]) [address] [place] [address] #### 2839-9 #### [facility] ([id number]) [address], [address] [place], [place] [address]Mwodduteby [Mass/Vol]0.68 mg/dLNormal0.40-1.00[facility] Ahuja Medical CenterComment on above:Result Comment: METHOD TRACEABLE TO IDMS STANDARD Performed By: #### 73503-9 #### [facility] ([id number]) [address] [place] [address] #### 2839-9 #### [facility] ([id number]) [address], [address] [place], [place] [address]iUYS (CKD-EPI) NON-RACE DEPENDENT>90Normal>59ProSt. Luke'S Health – The Woodlands HospitalComment on above:Result Comment: Reported eGFR is based on the CKD-EPI 2021 equation that does not use a race coefficient.Performed By: #### 12063-3 #### [facility] ([id number]) [address] [place] [address] #### 2839-9 #### [facility] ([id number]) [address], [address] [place], [place] [address]Kviqlnc [Mass/Vol]80 mg/lWUcasus58-82QojTkuwojSt. Luke'S [facility] Comment on above:Performed By: #### 87073-5 #### [facility] ([id number]) [address] [place] [address] #### 2839-9 #### [facility] ([id number]) [address], [address] [place], [place] [address]Qhoxymevp [Moles/Vol]3.9 mmol/LNormal3.5-5.0ProSt. Luke'S Health – The Woodlands HospitalComment on above:Performed By: #### 30545-0 #### [facility] ([id number]) [address] [place] [address] #### 2839-9 #### [facility] ([id number]) [address], [address] [place], [place] [address]Cgmnwtk [Mass/Vol]5.8 g/dLLow6.0-8.0[facility] Comment on above:Performed By: #### 16013-3 #### [facility] ([id number]) [address] [place] [address] #### 2839-9 #### [facility] ([id number]) [address], [address] [place], [place] [address]Hokoog [Moles/Vol]133 mmol/FMqw880-124KigFbcjygUniversity Hospitals Ahu[facility] Center Comment on above:Performed By: #### 45789-2 #### [facility] ([id number]) [address] [place] [address] #### 2839-9 #### [facility] ([id number]) [address], [address] [place] [address]Wskj nitrogen [Mass/Vol]15 mg/dLNormal5-23ProSt. Luke'S Health – The Woodlands HospitalComment on above:Performed By: #### 63579-8 #### [facility] ([id number]) [address] [place] [address] #### 2839-9 #### [facility] ([id number]) [address], [address] [place], [place] [address]UFVLTEfw 67-85-4665Cqakbh [Catalytic activity/Vol]36 U/LNormal 17-40ProSt. Luke'S Health – The Woodlands HospitalComment on above:Performed By: #### 16353-4 #### [facility] ([id number]) [address] [place] [address] #### 2839-9 #### [facility] ([id number]) [address] [place] [address], [address] [place], [place] 16150TUKJSCSXJmb 99-65-9874Nlbgpcogr [Mass/Vol]1.8 mg/dLNormal1.8-2.6 [facility] Medical CenterComment on above:Performed By: #### 02722-5 #### [facility] ([id number]) [address] [place] [address] 53085 #### 2839-9 #### [facility] ([id number]) [address] [place] [address], [address] [place] [address]Iugqoorp I.cardiac High sensitivity method [Mass/Vol]on 62-09-1397NIAKGEFV I, HIGH SENSITIVITY<2Normal<16[facility] Comment on above:Performed By: #### 12394-4 #### [facility] ([id number]) [address] [place] [address] 13285 #### 2839-9 #### [facility] ([id number]) [address] [place] [address], [address] [place] [address]PNZILDC PROFILEon 59-32-8139Acog T4 [Mass/Vol]0.89 ng/dLNormal 0.61-1.60ProSt. Luke'S Health – The Woodlands HospitalComment on above:Performed By: #### 07456-5 #### [facility] ([id number]) [address] [place] [address] 14672 #### 2839-9 #### [facility] ([id number]) [address] [place] [address], [address] [place], [place] [address]QJQ5.03 uIU/mLNormal0.49-4.67ProSt. Luke'S Health – The Woodlands HospitalComment on above:Performed By: #### 24050-0 #### [facility] ([id number]) [address] [facility], [place] [address] #### 2839-9 #### [facility] ([id number]) [address] [place] [address], [address] [place], [place] [address]KFSXJILYDJ/DISCHARGE PLUS VAGINITIS (HTRX)on 51-50-5008NMFVBMYDV VAGINAE0.000NOMS HealthcareATOPOBIUM VAGINAENot detectedNOMS HealthcareBVAB 2,3 (BACTERIAL VAGINOSIS ASSOCIATED BACTERIA 2, 3); MOBILUNCUS SPP0.000NOMS HealthcareBVAB 2,3 (BACTERIAL VAGINOSIS ASSOCIATED BACTERIA 2, 3); MOBILUNCUS SPPNot detectedNOMS HealthcareCANDIDA ALBICANS, PARAPSILOSIS, TROPICALIS0.000 NOMS HealthcareCANDIDA ALBICANS, PARAPSILOSIS, TROPICALISNot detectedNOMS HealthcareCANDIDA GLABRATA0.000NOMS HealthcareCANDIDA GLABRATANot detectedNOMS HealthcareCANDIDA KRUSEI0.000NOMS HealthcareCANDIDA KRUSEINot detectedNOMS HealthcareCHLAMYDIA TRACHOMATIS0.000NOMS HealthcareCHLAMYDIA TRACHOMATISNot detectedNOMS HealthcareGARDNERELLA VAGINALIS0.000NOMS HealthcareGARDNERELLA VAGINALISNot detectedNOMS HealthcareMEGASPHAERA (TYPES 1, 2)0.000[facility] MEGASPHAERA (TYPES 1, 2)Not detectedNOMS HealthcareMYCOPLASMA GENITALIUM0.000 NOMS HealthcareMYCOPLASMA GENITALIUMNot detectedNOMS HealthcareNEISSERIA GONORRHOEAE0.000NOMS HealthcareNEISSERIA GONORRHOEAENot detectedNOMS Healthcare TRICHOMONAS VAGINALIS0.000NOMS HealthcareTRICHOMONAS VAGINALISNot detectedNOMS HealthcareNOMS HealthcareUrinalysis macro (dipstick) panel (U)on 08-03-2024 Bilirubin, UANegativeNegative - 4(70) +++ mg/dLNOMS HealthcareBlood, UANegative Negative - 50 Nathanael/mcLNOMS HealthcareClarity, UAClearNOMS HealthcareColor, UA YellowNOMS HealthcareGlucose, UANegativeNegative - 2000(110) ++++ mg/dLNOMS HealthcareInterpretation and review of laboratory resultsNormalNOMS Healthcare Ketones, UANegativeNegative - 160(16) ++++ mg/dLNOMS HealthcareLeukocytes, UA NegativeNegative - 500+++ Annie/mcLNOMS HealthcareNitrite, UANegativeNegative - PositiveNOMS HealthcarepH, UA7.05 - 9NOMS HealthcareProtein, UANegativeNegative - 2000(20) ++++ mg/dLNOMS HealthcareSpec Grav, UA1.0201 - 1.03[facility] Urobilinogen, UA1.00.2 - 12 mg/dLNOMS HealthcareNOMS HealthcareTHYROID PROFILEon 01-91-9472Weqi T4 [Mass/Vol]0.80 ng/dLNormal0.61-1.60[facility] Comment on above:Performed By: #### 28556-8 #### [facility] ([id number]) [address] [place] [address] 66326 #### 2839-9 #### [facility] ([id number]) [address], [address] [place], [place] [address]TFI5.22 uIU/mLNormal0.49-4.67ProSt. Luke'S Health – The Woodlands HospitalComment on above:Performed By: #### 98691-3 #### [facility] ([id number]) [address] [place] [address] 21509 #### 2839-9 #### [facility] ([id number]) [address] [facility], [address] [place], [place] [address]FCZql 91-72-4971Gqdg T4 [Mass/Vol]0.80 ng/dL0.61 - 1.60 ng/dL NOMS HealthcareComment on above:PERFORMED AT [address],[place], [place] [address]ODK Qn3.22 m[IU]/LNOMS HealthcareNOMS Healthcare Urinalysis macro (dipstick) panel (U)on 62-88-8729Qxngmrcor, UANegativeNegative - 4(70) +++ mg/dLNOMS HealthcareBlood, UANegativeNegative - 50 Nathanael/mcLNOMS HealthcareClarity, UAClearNOMS HealthcareColor, UAYellowNOMS HealthcareGlucose, UANegativeNegative - 2000(110) ++++ mg/dLNOMS HealthcareInterpretation and review of laboratory resultsNormalNOMS HealthcareKetones, UANegativeNegative - 160(16) ++++ mg/dLNOMS HealthcareLeukocytes, UATraceNegative - 500+++ Annie/mcL NOMS HealthcareNitrite, UANegativeNegative - PositiveNOMS HealthcarepH, UA7.05 - 9NOMS HealthcareProtein, UANegativeNegative - 2000(20) ++++ mg/dLNOMS HealthcareSpec Grav, UA1.0251 - 1.03NOMS HealthcareUrobilinogen, UA0.20.2 - 12 mg/dLNOMS HealthcareNOMS HealthcareTSH ([facility])on 74-23-9036TDY Qn2.32 m[IU]/LNOMS HealthcareComment on above:PERFORMED AT [address],[place], [place] [address]IHQIFitzgibbon Hospital Qnon 93-23-9570IXV3.32 uIU/mLNormal0.49-4.67[facility] Medical CenterComment on above:Performed By: #### 59359-7 #### [facility] ([id number]) [address] [place] [address] 19222 #### 2839-9 #### [facility] ([id number]) [address] [place] [address], [address] [place], [place] [address]OLY AND AUTO DIFFon 39-61-3804BQJJVZMR BASOPHIL0.0 X10E9/LNormal 0.0-0.2[facility] Medical CenterComment on above:Performed By: #### 06806-5 #### [facility] ([id number]) [address] [place] [address] 27977 #### 2839-9 #### [facility] ([id number]) [address] [place] [address], [address] [place], [place] [address]BCIRZBUX NEUTROPHIL4.8 X10E9/LNormal1.5-6.6ProSt. Luke'S Health – The Woodlands HospitalComment on above:Performed By: #### 76214-1 #### [facility] ([id number]) [address] [place] [address] 25992 #### 2839-9 #### [facility] ([id number]) [address], [address] [place], [place] [address]Vapikmibp/100 WBC (Bld)0.3 %NormalUniversity Hospitals Ahuja Medical Center Comment on above:Performed By: #### 54832-4 #### [facility] ([id number]) [address] [place] [address] 93291 #### 2839-9 #### [facility] ([id number]) [address], [address] [place], [place] [address]Zzoxguvtkrc (Bld) [#/Vol]0.4 10*3/uLNormal0.0-0.4[facility] Medical CenterComment on above:Performed By: #### 32537-8 #### [facility] ([id number]) [address] [place] [address] 17639 #### 2839-9 #### [facility] ([id number]) [address], [address] [place], [place] [address]Ahqgqmggqvb/100 WBC (Bld)5.5 %NormalUniversity Hospitals Ahuja Medical Center Comment on above:Performed By: #### 25209-6 #### [facility] ([id number]) [address] [place] [address] 55576 #### 2839-9 #### [facility] ([id number]) [address], [address] [place], [place] [address]Spxquiyyirh distribution width (RBC) [Ratio]13.1 %Normal 11.5-15.0ProSt. Luke'S Health – The Woodlands HospitalComment on above:Performed By: #### 29325-3 #### [facility] ([id number]) [address] [place] [address] 59933 #### 2839-9 #### [facility] ([id number]) [address], [address] [place], [place] [address]Zhfppgjglx (Bld) [Volume fraction]32.4 %Ipu99-33OkgShagfiSt. Luke'S Health – The Woodlands HospitalComment on above:Performed By: #### 48952-5 #### [facility] ([id number]) [address] [place] [address] 87960 #### 2839-9 #### [facility] ([id number]) [address] [facility], [address] [place], [place] [address]Phwwatxbev (Bld) [Mass/Vol]11.2 g/dLLow11.7-15.5POhioHealth Berger HospitalComment on above:Performed By: #### 85911-6 #### [facility] ([id number]) [address] [place] [address] 45617 #### 2839-9 #### [facility] ([id number]) [address] [facility], [address] [place], [place] [address]Eqqxrwoqsvv (Bld) [#/Vol]1.7 10*3/uLNormal1.0-3.5POhioHealth Berger HospitalComment on above:Performed By: #### 78220-8 #### [facility] ([id number]) [address] [place] [address] 64099 #### 2839-9 #### [facility] ([id number]) [address], [address] [place], [place] [address]Bpqgytophbo/100 WBC (Bld)21.9 %NormalProSt. Luke'S Health – [facility] Hospital Comment on above:Performed By: #### 07668-9 #### [facility] ([id number]) [address] [place] [address] 03419 #### 2839-9 #### [facility] ([id number]) [address], [address] [place], [place] [address]UXJ (RBC) [Entitic mass]31.7 kbOtaqio87-59KzbYcqrvoSt. Luke'S Health – The Woodlands HospitalComment on above:Performed By: #### 51242-1 #### [facility] ([id number]) [address] [place] [address] 44308 #### 2839-9 #### [facility] ([id number]) [address], [address] [place], [place] [address]QZBP (RBC) [Mass/Vol]34.5 g/bBUddozx08-35WwuJzpqdrSt. Luke'S Health – The Woodlands HospitalComment on above:Performed By: #### 28217-9 #### [facility] ([id number]) [address] [place] [address] 48087 #### 2839-9 #### [facility] ([id number]) [address], [address] [place], [place] [address]CZN (RBC) [Entitic vol]92 bQYhfese11-405RejKbflrz [facility]remont HospitalComment on above:Performed By: #### 02955-3 #### [facility] ([id number]) [address] [place] [address] 98572 #### 2839-9 #### [facility] ([id number]) [address], [address] [place], [place] [address]Wwpuqdstv (Bld) [#/Vol]0.8 10*3/uLNormal0-0.9ProSt. Luke'S Health – The Woodlands HospitalComment on above:Performed By: #### 85026-9 #### [facility] ([id number]) [address] [place] [address] 61400 #### 2839-9 #### [facility] ([id number]) [address], [address] [place], [place] [address]Jchqrzgnu/100 WBC (Bld)10.4 %[facility] Comment on above:Performed By: #### 92414-7 #### [facility] ([id number]) [address] [place] [address] 97118 #### 2839-9 #### [facility] ([id number]) [address], [address] [place], [place] [address]Zlfxawtiqma/100 WBC (Bld)61.9 %[facility] Comment on above:Performed By: #### 64835-9 #### [facility] ([id number]) [address] [place] [address] 46566 #### 2839-9 #### [facility] ([id number]) [address], [address] [place], [place] [address]Rspqokjp mean volume (Bld) [Entitic vol]6.9 fLLow7-12[facility] Medical CenterComment on above:Performed By: #### 76263-8 #### [facility] ([id number]) [address] [place] [address] 89203 #### 2839-9 #### [facility] ([id number]) [address], [address] [place] [address]Qcwneekos (Bld) [#/Vol]172 10*3/oSDocrwk192-162GoxYnuxxo [facility]ont HospitalComment on above:Performed By: #### 23005-1 #### [facility] ([id number]) [address] [place] [address] 75236 #### 2839-9 #### [facility] ([id number]) [address], [address] [place], [place] [address]DRX COUNT3.54 X10E12/LLow3.80-5.20[facility] Comment on above:Performed By: #### 52790-2 #### [facility] ([id number]) [address] [place] [address] 45874 #### 2839-9 #### [facility] ([id number]) [address] [facility], [address] [place], [place] [address]CBW (Bld) [#/Vol]7.7 10*3/uLNormal4.0-11.0ProSt. Luke'S Health – The Woodlands HospitalComment on above:Performed By: #### 44631-2 #### [facility] ([id number]) [address] [place] [address] 72290 #### 2839-9 #### [facility] ([id number]) [address] [facility], [address] [place], [place] [address]EKVFAXZUNQSXB METABOLIC PANELon 58-88-3745Zgxtjfq [Mass/Vol]3.2 g/dLNormal3.2-5.3POhioHealth Berger HospitalComment on above:Performed By: #### 29781-3 #### [facility] ([id number]) [address] [place] [address] 98952 #### 2839-9 #### [facility] ([id number]) [address] [facility], [address] [place], [place] [address]WXP [Catalytic activity/Vol]38 U/RCsn23-497FkuLouwznSt. Luke'S Health – The Woodlands HospitalComment on above:Performed By: #### 46476-2 #### [facility] ([id number]) [address] [place] [address] 78947 #### 2839-9 #### [facility] ([id number]) [address] [facility], [address] [place], [place] [address]SID [Catalytic activity/Vol]54 U/LHigh0-31POhioHealth Berger HospitalComment on above:Performed By: #### 51564-9 #### [facility] ([id number]) [address] [place] [address] 67343 #### 2839-9 #### [facility] ([id number]) [address], [address] [place], [place] [address]Rluel gap [Moles/Vol]1 mmol/LLow5-15[facility] Comment on above:Performed By: #### 23231-5 #### [facility] ([id number]) [address] [place] [address] 30381 #### 2839-9 #### [facility] ([id number]) [address], [address] [place], [place] [address]WEZ [Catalytic activity/Vol]35 U/LNormal0-41[facility] Medical CenterComment on above:Performed By: #### 46312-7 #### [facility] ([id number]) [address] [place] [address] 36869 #### 2839-9 #### [facility] ([id number]) [address], [address] [place], [place] [address]Yxszqbxem [Mass/Vol]0.4 mg/dLNormal0.3-1.2POhioHealth Berger HospitalComment on above:Performed By: #### 89594-5 #### [facility] ([id number]) [address] [place] [address] 96988 #### 2839-9 #### [facility] ([id number]) [address], [address] [place], [place] [address]Ubbkpsu [Mass/Vol]8.3 mg/dLLow8.5-10.5POhioHealth Berger Hospital Comment on above:Performed By: #### 92446-1 #### [facility] ([id number]) [address] [place] [address] 04570 #### 2839-9 #### [facility] ([id number]) [address], [address] [place], [place] [address]Uotrrkln [Moles/Vol]103 mmol/DPpqaah78-952IvlStiwtmUniversity Hospitals Ahuja Medical CenterComment on above:Performed By: #### 53081-7 #### [facility] ([id number]) [address] [place] [address] 97447 #### 2839-9 #### [facility] ([id number]) [address] [facility], [address] [place], [place] [address]UE5 [Moles/Vol]26 mmol/SAgvmca43-73IzgNcbysjOhioHealth Berger Hospital Comment on above:Performed By: #### 47317-9 #### [facility] ([id number]) [address] [place] [address] 69772 #### 2839-9 #### [facility] ([id number]) [address] [facility] [place], [place] [address]Qkphvrhwda [Mass/Vol]0.64 mg/dLNormal0.40-1.00[facility] Medical CenterComment on above:Result Comment: METHOD TRACEABLE TO IDMS STANDARD Performed By: #### 18635-6 #### [facility] ([id number]) [address] [place] [address] 83970 #### 2839-9 #### [facility] ([id number]) [address], [address] [place], [place] [address]lQRU (CKD-EPI) NON-RACE DEPENDENT>90Normal>59ProSt. Luke'S Health – The Woodlands HospitalComment on above:Result Comment: Reported eGFR is based on the CKD-EPI 2020 equation that does not use a race coefficient.Performed By: #### 97498-7 #### [facility] ([id number]) [address] [place] [address] 09706 #### 2839-9 #### [facility] ([id number]) [address], [address] [place], [place] [address]Fvnjdal [Mass/Vol]79 mg/pGLejzhz52-02KnsObyfstSt. Luke'S [facility] Comment on above:Performed By: #### 47193-9 #### [facility] ([id number]) [address] [place] [address] 86073 #### 2839-9 #### [facility] ([id number]) [address] [facility], [address] [place], [place] [address]Xicyzhbac [Moles/Vol]3.7 mmol/LNormal3.5-5.0ProSt. Luke'S Health – The Woodlands HospitalComment on above:Performed By: #### 78016-4 #### [facility] ([id number]) [address] [place] [address] 90270 #### 2839-9 #### [facility] ([id number]) [address] [facility], [address] [place], [place] [address]Mngobxg [Mass/Vol]6.1 g/dLNormal6.0-8.0ProSt. Luke'S Health – The Woodlands HospitalComment on above:Performed By: #### 65542-7 #### [facility] ([id number]) [address] [place] [address] 24265 #### 2839-9 #### [facility] ([id number]) [address], [address] [place], [place] [address]Ajpwyy [Moles/Vol]130 mmol/DUov157-122YqiGfzhzdSt. Luke'S [facility] Comment on above:Performed By: #### 93867-8 #### [facility] ([id number]) [address] [place] [address] 71418 #### 2839-9 #### [facility] ([id number]) [address] [facility], [address] [place], [place] [address]Polk nitrogen [Mass/Vol]15 mg/dLNormal5-23ProSt. Luke'S Health – The Woodlands HospitalComment on above:Performed By: #### 32771-9 #### [facility] ([id number]) [address] [place] [address] #### 2839-9 #### [facility] ([id number]) [address] [facility] [place], [place] [address]SZE.beta subunit IA 3rd IS Qnon 87-98-9884IXB.beta subunit Qn 423230 m[IU]/mLNormalProSt. Luke'S Health – The Woodlands HospitalComment on above:Result Comment: NEW REFERENCE RANGE WEEKS (SINCE LMP) [...] trophoblastic or nontrophoblastic neoplasms. Performed By: #### 58792-8 #### [facility] ([id number]) [address] [place] [address] #### 2839-9 #### [facility] ([id number]) [address] [facility], [address] [place], [place] [address]CHW MACROSCOPIC NURon 10-12-9733GHNYBKZOR NURNegativeNormalNEG [facility] Medical CenterComment on above:Performed By: #### 56021-3 #### [facility] ([id number]) [address] [place] [address] 33840 #### 2839-9 #### [facility] ([id number]) [address], [address] [place], [place] [address]LXIHW/HGB NURTraceAbnormscNEGUniversity Hospitals Ahuja Medical CenterComment on above:Performed By: #### 48611-6 #### [facility] ([id number]) [address] [place] [address] 79769 #### 2839-9 #### [facility] ([id number]) [address], [address] [place], [place] [address]SKASSRZ NURNegativeNormalNEGUniversity Hospitals Ahuja Medical CenterComment on above:Performed By: #### 00995-2 #### [facility] ([id number]) [address] [place] [address] 91676 #### 2839-9 #### [facility] ([id number]) [address], [address] [place], [place] [address]BKLIKOM NURNegativeNormalNEGUniversity Hospitals Ahuja Medical CenterComment on above:Performed By: #### 91722-5 #### [facility] ([id number]) [address] [place] [address] 17549 #### 2839-9 #### [facility] ([id number]) [address], [address] [place], [place] [address]IXOCOHZXF ESTERASE NURNegativeNormalNEGProSt. Luke'S Health – The Woodlands HospitalComment on above:Performed By: #### 43760-1 #### [facility] ([id number]) [address] [place] [address] 95477 #### 2839-9 #### [facility] ([id number]) [address], [address] [place], [place] [address]FQLRIIJ NURNegativeNormalNEGUniversity Hospitals Ahuja Medical CenterComment on above:Performed By: #### 47703-0 #### [facility] ([id number]) [address] [place] [address] 21655 #### 2839-9 #### [facility] ([id number]) [address], [address] [place], [place] [address]TT NUR5.3Gfdmmy8.0-8.5POhioHealth Berger HospitalComment on above:Performed By: #### 05458-6 #### [facility] ([id number]) [address] [place] [address] #### 2839-9 #### [facility] ([id number]) [address], [address] [place], [place] [address]APOGLVD NURNegativeNormalNEGUniversity Hospitals Ahuja Medical CenterComment on above:Performed By: #### 40768-2 #### [facility] ([id number]) [address] [place] [address] #### 2839-9 #### [facility] ([id number]) [address], [address] [place], [place] [address]RJFJRJSJ GRAVITY CHLOÉ>=1.129Odmhlc5.003-1.035ProSt. Luke'S Health – The Woodlands HospitalComment on above:Performed By: #### 75044-4 #### [facility] ([id number]) [address] [place] [address] #### 2839-9 #### [facility] ([id number]) [address], [address] [place], [place] [id number] NUR0.2 eu/dLNormal<1.1POhioHealth Berger Hospital Comment on above:Performed By: #### 73842-8 #### [facility] ([id number]) [address] [place] [address] #### 2839-9 #### [facility] ([id number]) [address], [address] [place], [place] [address]CNP ( test) Ql (U)on 25-91-8274Syor HCG ( test) Ql (U)PositiveAbnormalNEGProSt. Luke'S Health – The Woodlands HospitalComment on above: Performed By: #### 47039-0 #### [facility] ([id number]) [address] [place] [address] #### 2839-9 #### [facility] ([id number]) [address], [address] [place], [place] [address]PUB MACROSCOPIC NURon 18-23-4859FSHHJMBPK NURNegativeNormalNEG [facility] Medical CenterComment on above:Performed By: #### 14797-1, CMP, 3016-3, #### [facility] ([id number]) [address], [address] [place], [place] [address]AEEDZ/HGB NURSmallAbnormalNEGProSt. Luke'S Health – The Woodlands HospitalComment on above:Performed By: #### 17552-7, CMP, 3016-3, #### [facility] ([id number]) [address], [address] [place], [place] [address]MCPIWSN NURNegativeNormalNEGProSt. Luke'S Health – The Woodlands HospitalComment on above:Performed By: #### 62396-4, CMP, 6-3, 20968-8 #### [facility] ([id number]) [address], [address] [place], [place] [address]YTMHDHP NURNegativeNormalNEGProSt. Luke'S Health – The Woodlands HospitalComment on above:Performed By: #### 14133-2, CMP, 3016-3, #### [facility] ([id number]) [address], [address] [place], [place] [id number] ESTERASE NURNegativeNormalNEGUniversity Hospitals Ahuja Medical CenterComment on above:Performed By: #### 98536-8, [facility], 3016-3, #### [facility] ([id number]) [address], [address] [place], [place] [address]RQHMWRH NURNegativeNormalNEGUniversity Hospitals Ahuja Medical CenterComment on above:Performed By: #### 47811-8, [facility], -3, #### [facility] ([id number]) [address], [address] [place], [place] [address]JP NUR5.9Dlmmdh1.0-8.5POhioHealth Berger HospitalComment on above:Performed By: #### 32901-0, [facility], [facility]-, #### [facility] ([id number]) [address], [address] [place], [place] [address]HECHTVH NURNegativeNormalNEGUniversity Hospitals Ahuja Medical CenterComment on above:Performed By: #### 67608-9, [facility], 3015-3, #### [facility] ([id number]) [address], [address] [place], [place] [address]GMUGTEXC GRAVITY CHLOÉ>=1.749Ydwywn4.003-1.035ProSt. Luke'S Health – The Woodlands HospitalComment on above:Performed By: #### 93748-3, [facility], 3015-3, #### [facility] ([id number]) [address], [address] [place], [place] [address]RAJKGCMNDOWA NUR1.0 eu/dLNormal<1.1POhioHealth Berger Hospital Comment on above:Performed By: #### 01671-8, CMP, 3015-3, #### [facility] ([id number]) [address] [facility] [place], [place] [address]KO OB TRANSVAGINALon 03-52-9147Udo[address] [address] Ultrasound Report Signed Patient: Phillip Noriega MR#: [id number] : 1995 Acct:[id number] Age/Sex: 29 / F ADM Date: 05/19/24 Loc: NOMS Attending Dr: Jake Miramontes D.O. Ordering Physician: Jake Miramontes D.O. Date of Service: 05/19/24 Procedure(s): US OB transvaginal Accession Number(s): [id number] cc: Jake Miramontes D.O.; Physician,Non-Staff Patti The [address] [address] Patient Name: PHILLIP NORIEGA MRN: [facility]:[id number] date: 1995 Sex: F Assigned Patient Location: [facility] Current Patient Location: [facility] Accession/Order Number: [id number] Exam Date: 05/19/2024 10:41 Report Date: 05/19/2024 11:29 At the request of: JAKE MIRAMONTES Procedure: US OB transvaginal EXAMINATION: US [...] Single live intrauterine . Electronically authenticated by: MARIBELL LYNN Date: 05/19/2024 11:29 Dictated By: Maribell Lynn M.D. Signed By: 05/19/24 1131 DD/ 1129 TD/TT: Bindery Worker:SWEETIEHRadiology, Radiologist, - 05/19/2024 [place] [address] Ultrasound Report Signed Patient: Phillip Noriega MR#: [id number] : 1995 Acct:[id number] Age/Sex: 29 / F ADM Date: 05/19/24 Loc: NOMS Attending Dr: Jake Miramontes D.O. Ordering Physician: Jake Miramontes D.O. Date of Service: 05/19/24 Procedure(s): US OB transvaginal Accession Number(s): [id number] cc: Jake Miramontes D.O.; Physician,Non-Staff Patti The [place] [address] Patient Name: PHILLIP NORIEGA MRN: [id number] date: 1995 Sex: F Assigned Patient Location: [facility] Current Patient Location: [facility] Accession/Order Number: [id number] Exam Date: 05/19/2024 10:41 Report Date: 05/19/2024 11:29 At the request of: JAKE MIRAMONTES Procedure: US OB transvaginal EXAMINATION: US [...] Single live intrauterine . Electronically authenticated by: MARIBELL LYNN Date: 05/19/2024 11:29 Dictated By: Maribell Lynn M.D. Signed By: 05/19/24 1131 DD/ 1129 TD/TT: Bindery Worker: KESHA HwangRadiology Study observation (narrative)KESHA HwangUS OB TRANSVAGINALOrdered By: Radiologist Radiology on 97-22-8796QBRO [employer] Work Phone: HCG.beta subunit IA 3rd IS Cleopatra 79-66-6059HDW.beta subunit Wn22237 m[IU]/mLNormalUniversity Hospitals Ahuja Medical CenterComment on above:Result Comment: NEW REFERENCE RANGE WEEKS (SINCE LMP) [...] trophoblastic or nontrophoblastic neoplasms. Performed By: #### 71605-6, CMP, 3016-3, 63650-9 #### [facility] ([id number]) [address] [place] [address], [address] [place], [place] [address]JWX.beta subunit IA 3rd IS Qsydney 10-64-[place] [address] m[IU]/mLNormalProSt. Luke'S Health – The Woodlands HospitalComcorewell health zeeland hospital on above:Result Comment: NEW REFERENCE RANGE WEEKS (SINCE LMP) [...] trophoblastic or nontrophoblastic neoplasms. Performed By: #### 72269-1, CMP, 3016-3, 89927-8 #### [facility] ([id number]) [address] [place] [address], [address] [place], [place] [address]AIU Qnon 58-30-3430NJX5.06 uIU/mLNormal0.49-4.67ProSt. Luke'S Health – The Woodlands HospitalComment on above:Performed By: #### 37372-1, [place], 3016-3, - 9 #### [facility] ([id number]) [address] [place] [address], [address] [place], [place] [address]QMJ.beta subunit IA 3rd IS Qnon 13-50-3888NYC.beta subunit Qn 6446 m[IU]/mLNormalProSt. Luke'S Health – The Woodlands HospitalComment on above:Result Comment: NEW REFERENCE RANGE WEEKS (SINCE LMP) [...] trophoblastic or nontrophoblastic neoplasms. Performed By: #### 72945-5, CMP, 3016-3, 50888-2 #### [facility] ([id number]) [address] [place] [address], [address] [place], [place] [address]QHB.beta subunit IA 3rd IS Qbanner behavioral health hospital 19-63-2957WSS.beta subunit Qn 3140 m[IU]/mLNormalProTexas Health Harris [facility] on above:Result Comment: NEW REFERENCE RANGE WEEKS (SINCE LMP) [...] trophoblastic or nontrophoblastic neoplasms. Performed By: #### 17409-9, [facility], 3016-3, 50808-5 #### [facility] ([id number]) [address] [place] [address], [address] [place], [place] [address]WZR.beta subunit IA 3rd IS Cleopatra 64-47-2255DRM.beta subunit Qn560 m[IU]/mLNormalProTrinity Health Systemca Doctor'S Hospital Montclair Medical CenterComcorewell health zeeland hospital on above:Result Comment: NEW REFERENCE RANGE WEEKS (SINCE LMP) [...] trophoblastic or nontrophoblastic neoplasms. Performed By: #### 48935-0, VINCENZO, 6-3, 34075-1 #### [facility] ([id number]) [address], [address] [place], [place] [address]GIB.beta subunit IA 3rd IS Qnon 41-91-2765RGN.beta subunit Qn159 m[IU]/mLNormalProMedica Doctor'S Hospital Montclair Medical CenterComment on above:Result Comment: NEW REFERENCE RANGE WEEKS (SINCE LMP) [...] trophoblastic or nontrophoblastic neoplasms. Performed By: #### 33691-9, [place], 6-3, #### [facility] ([id number]) [address], [address] [place], [place] [address]YOQL T3on 27-23-6192Lynk T3 [Mass/Vol]3.94 pg/mLHigh2.50-3.90 ProMedica Doctor'S Hospital Montclair Medical CenterComcorewell health zeeland hospital on above:Performed By: ###Eddy 71252-8, [place], 6-3, 75240-9 #### [facility] ([id number]) [address], [address] [place], [place] [address]RCKYOSS PROFILEon 62-87-7053Yzyl T4 [Mass/Vol]0.91 ng/dLNormal 0.61-1.60Cherrington Hospitalment on above:Performed By: #### 45628-6, [facility], [facility]-3, #### [facility] ([id number]) [address] [place] [address], [address] [place], [place] [address]DGA8.52 uIU/mLNormal0.49-4.67University Hospitals Ahuja Medical CenterComment on above:Performed By: #### 04655-8, [facility], [facility]-3, #### [facility] ([id number]) [address] [place] [address], [address] [place], [place] [address]FYVFHXJHHGAZHNL ABon 09-93-3971PZY Ab Qn403 [IU]/mLHigh<10 ProMMission Hospital of Huntington ParkComment on above:Performed By: #### 87986-6, [facility], [facility], #### [facility] ([id number]) [address] [place] [address], [address] [place], [place] [address]Vuiywla stimulating immunoglobulins Qn (S)on 60-59-7441CSCKaw BelowNormalProSt. Luke'S Health – The Woodlands HospitalComcorewell health zeeland hospital on above:Result Comment: NOTE TEST RESULT FLAG UNIT REF.RANGE TSI Qualitative Positive A Negative TSI 1.28 H IU/L <0.55 Thyroid Stimulating Immunoglobulin test is used as an aid in diagnosis of autoimmune hyperthyroidism especially in patients with Grave's orbitopathy and dermopathy. Low positive TSH receptor stimulating antibody levels may occasionally be found in patients with autoimmune hypothyroidism. Clinical correlation is required. Test Performed By: [facility] [employer] [address] [place] [address] Hr Operations Advisor: Eloy Dangelo III, M.D. PETERSON #[id number] By: #### 73793-9, CMP, 3016-3, #### [facility] ([id number]) [address], [address] [place], [place] [address]MYRZE HEPATITIS PANELon 45-07-5736LPRJ HCV W/PCR REFLX Non-ReactiveBarnesville HospitalComment on above:Result Comment: If recent infection suspected, recommend repeat testing (>2 months). Qhworj-zg-tzouhc ratio is <0.80.Performed By: #### 91533-5, CMP, 3016-3, #### [facility] ([id number]) [address], [address] [place], [place] [address]LPLVGZFTF A IGMNon-ReactiveBarnesville Hospital Comment on above:Performed By: #### 49277-3, [facility], 3016-3, #### [facility] ([id number]) [address], [address] [place], [place] [address]TESDMTZZA B CORE IGMNegativeOhioHealth Southeastern Medical Center Comment on above:Performed By: #### 22645-2, [facility], 3016-3, #### [facility] ([id number]) [address], [address] [place], [place] [address]ELKOKWDJP B SURF AGNegativeOhioHealth Southeastern Medical Center Comment on above:Performed By: #### 65615-7, CMP, 3016-3, #### [facility] ([id number]) [address], [address] [place], [place] [address]CTBATCOYWBODC METABOLIC PANELon 75-76-4887Fzveqno [Mass/Vol]3.8 g/dLNormal3.2-5.3ProMedica Doctor'S Hospital Montclair Medical CenterComment on above:Performed By: #### 06238-0, CMP, 3016-3, #### [facility] ([id number]) [address], [address] [place] [address]KJN [Catalytic activity/Vol]48 U/OGajgmp58-833EaqElxitkSt. Luke'S Health – The Woodlands HospitalComment on above:Performed By: #### 33883-1, CMP, 3016-3, 84207-3 #### [facility] ([id number]) [address], [address] [place] [address]OFN [Catalytic activity/Vol]38 U/LHigh0-31POhioHealth Berger HospitalComment on above:Performed By: #### 63395-0, CMP, 3015-3, #### [facility] ([id number]) [address], [address] [place] [address]Aiurv gap [Moles/Vol]9 mmol/LNormal5-15ProSt. Luke'S Health – The Woodlands HospitalComment on above:Performed By: #### 91685-2, CMP, [facility]-3, #### [facility] ([id number]) [address], [address] [place], [place] [address]RLD [Catalytic activity/Vol]32 U/LNormal0-41ProSt. Luke'S Health – The Woodlands HospitalComment on above:Performed By: #### 66372-2, CMP, 3015-3, #### [facility] ([id number]) [address], [address] [place], [place] [address]Ojwjvkjyz [Mass/Vol]0.9 mg/dLNormal0.3-1.2POhioHealth Berger HospitalComment on above:Performed By: #### 28008-3, CMP, 6-3, #### [facility] ([id number]) [address], [address] [place], [place] [address]Mearqfo [Mass/Vol]8.8 mg/dLNormal8.5-10.5POhioHealth Berger HospitalComment on above:Performed By: #### 68009-8, [place], 3016-3, #### [facility] ([id number]) [address], [address] [place] [address]Pulqiera [Moles/Vol]104 mmol/QUeqxim98-101EjvNasycnUniversity Hospitals Ahuja Medical CenterComment on above:Performed By: #### 68677-8, [place], 6-3, #### [facility] ([id number]) [address], [address] [place] [address]UF8 [Moles/Vol]26 mmol/LVtuhnp98-37VegLmmxscOhioHealth Berger Hospital Comment on above:Performed By: #### 96677-0, [place], 3015-12, #### [facility] ([id number]) [address], [address] [place], [place] [address]Jzxacuhneq [Mass/Vol]0.64 mg/dLNormal0.40-1.00University Hospitals Ahuja Medical CenterComment on above:Result Comment: METHOD TRACEABLE TO IDMS STANDARD Performed By: #### 26611-0, [place], 3015-3, #### [facility] ([id number]) [address], [address] [place] [address]tDGI (CKD-EPI) NON-RACE DEPENDENT>90Normal>59ProSt. Luke'S Health – The Woodlands HospitalComment on above:Result Comment: Reported eGFR is based on the CKD-EPI 2021 equation that does not use a race coefficient.Performed By: #### 67268-2, VINCENZO, 6-3, #### [facility] ([id number]) [address], [address] [place], [place] [address]Hpjuqcz [Mass/Vol]80 mg/eVQrqnfa31-41MnwFublwuUniversity Hospitals Ahuja Medical Center Comment on above:Performed By: #### 31554-6, VINCENZO, 6-3, #### [facility] ([id number]) [address], [address] [place] [address]Rwjhnvujd [Moles/Vol]3.7 mmol/LNormal3.5-5.0ProSt. Luke'S Health – The Woodlands HospitalComment on above:Performed By: #### 93512-6, [facility], 3015-3, #### [facility] ([id number]) [address], [address] [place] [address]Rluyedz [Mass/Vol]6.8 g/dLNormal6.0-8.0ProSt. Luke'S Health – The Woodlands HospitalComment on above:Performed By: #### 41422-7, [facility], [facility]-, #### [facility] ([id number]) [address], [address] [place] [address]Gpmyhi [Moles/Vol]139 mmol/RTngkxo678-487AelSydkro Fremont HospitalComment on above:Performed By: #### 52319-3, [facility], [facility]-, #### [facility] ([id number]) [address], [address] [place] [address]Pdzl nitrogen [Mass/Vol]11 mg/dLNormal5-23ProSt. Luke'S Health – The Woodlands HospitalComment on above:Performed By: #### 66739-7, [facility], [facility]-, #### [facility] ([id number]) [address], [address] [place] [address]Xvwaz 1996 panelon 99-50-5900Wiqblxekaaa [Mass/Vol]94 mg/dLLow 150-200ProSt. Luke'S Health – The Woodlands HospitalComment on above:Performed By: #### 97746-3, [facility], [facility]-, #### [facility] ([id number]) [address], [address] [place] [address]Thsgrbrdjtk in HDL [Mass/Vol]43 mg/dLNormal>39ProSt. Luke'S Health – The Woodlands HospitalComment on above:Result Comment: HDL <40 mg/dL - High Risk HDL > or = 40mg/dL- Desirable HDL >60 mg/dL - Negative Risk Performed By: #### 17617-4, CMP, 3016-3, 60394-4 #### [facility] ([id number]) [address], [address] [place], [place] [address]Ykjsnqtpttw in LDL [Mass/Vol]39 mg/dLNormal<130ProSt. Luke'S Health – The Woodlands HospitalComment on above:Result Comment: LDL <100 mg/dL - Desirable LDL >160 mg/dL - High Risk Performed By: #### 93988-7, [facility], 3016-3, 19009-1 #### [facility] ([id number]) [address], [address] [place], [place] [address]Prgjrmitesj in VLDL [Mass/Vol]12 mg/dLNormal0-30ProSt. Luke'S Health – The Woodlands HospitalComment on above:Performed By: ###Eddy 57110-4, [place], 3016-3, 84339- 9 #### [facility] ([id number]) [address], [address] [place], [place] [address]KEQWEXADUTT:HDL2.1Midnxp3.0-5.0ProSt. Luke'S Health – The Woodlands HospitalComment on above:Performed By: ###Eddy 64058-1, [place], 3016-3, 04858-8 #### [facility] ([id number]) [address], [address] [place], [place] [address]Yaiksigdvfeg [Mass/Vol]58 mg/kZXtjotd92-076NauEjarsr Fremont HospitalComment on above:Performed By: ###Eddy 07080-3, CMP, 3016-3, #### [facility] ([id number]) [address] [place] [address], [address] [place], [place] [address]Lctztsbum inhibiting substance [Mass/Vol]on 62-31-9981HFJW MULLERIAN HORMSee BelowNormalProSt. Luke'S Health – The Woodlands HospitalComcorewell health zeeland hospital on above:Result Comment: NOTE TEST RESULT FLAG UNIT REF.RANGE Anti Mclean Hormone 0.54 L ng/mL 0.58-8.13 Test Performed By: [facility] [employer] [address] [place] [address] Hr Operations Advisor: Eloy Dangelo III, M.D. [facility] #[id number] By: #### 07387-9, [facility], 3016-3, #### [facility] ([id number]) [address] [place] [address], [address] [place], [place] [address]Pwyeprix [Mass/Vol]on 80-69-6506UHAKHHVR, SER/ITPRHB675.6 ug/L Jbtpne74.0-190.0University Hospitals Ahuja Medical CenterComcorewell health zeeland hospital on above:Result Comment: NOTE INTERPRETIVE INFORMATION: Selenium, Serum or [...] developed and its performance characteristics determined by [employer]. It has not been cleared or approved by the [place] Food and Drug Administration. This test was performed in a CLIA certified laboratory and is intended for clinical purposes. Performed By: [facility] [address] [place] [address] Hr Operations Advisor: Deangelo Rosario MD, PhD CLIA Number: [id number] By: #### 55256-7 [facility], 3015-3, #### [facility] ([id number]) [address], [address] [place], [place] [address]BYGGQAX PROFILEon 11-18-1666Bwlg T4 [Mass/Vol]0.67 ng/dLNormal 0.61-1.60ProSt. Luke'S Health – The Woodlands HospitalComment on above:Performed By: #### 52662-3 [facility], 6-3, 89080-1 #### [facility] ([id number]) [address], [address] [place], [place] [address]GWQ6.55 uIU/mLNormal0.49-4.67ProSt. Luke'S Health – The Woodlands HospitalComment on above:Performed By: #### 35641-1 [facility], 6-3, 54420-9 #### [facility] ([id number]) [address], [address] [place], [place] [address]IBUFBOF E, SER/PLon 09-82-1102DRG E(ALPHA-TOCOPHEROL)7.6 mg/L Normal5.5-18.0ProSt. Luke'S Health – The Woodlands HospitalComment on above:Result Comment: NOTE This test was developed and its performance characteristics determined by [employer]. It has not been cleared or approved by the US Food and Drug Administration. This test was performed in a CLIA certified laboratory and is intended for clinical purposes.Performed By: #### 92058-0 [facility], 6-3, 53972-7 #### [facility] ([id number]) [address], [address] [place], [place] [address]EDM E(GAMMA-TOCOPHEROL)0.3 mg/LNormal0.0-6.0University Hospitals Ahuja Medical CenterComment on above:Result Comment: NOTE Performed By: [facility] [address] [place] [address] Hr Operations Advisor: Deangelo Rosario MD, PhD CLIA Number: [id number] By: #### 16171-5, CMP, 3015-12, #### [facility] ([id number]) [address], [address] [place] [address]WIRME PANELon 10-65-1270Uswgfzs [Mass/Vol]3.8 g/dLNormal3.2-5.3 [facility] Hospitaledica Doctor'[facility] Hospital Montclair Medical CenterComment on above:Performed By: #### 02515-1, CMP, 3015-, #### [facility] ([id number]) [address], [address] [place] [address]VVJ [Catalytic activity/Vol]44 U/KNzprad63-000PfkPjytvcSt. Luke'S Health – The Woodlands HospitalComment on above:Performed By: #### 09670-2, CMP, 3015-12, #### [facility] ([id number]) [address], [address] [place] [address]MHI [Catalytic activity/Vol]33 U/LHigh0-31ProMedica Doctor'S Hospital Montclair Medical CenterComment on above:Performed By: #### 63901-1, CMP, 3015-12, #### [facility] ([id number]) [address], [address] [place], [place] [address]GLT [Catalytic activity/Vol]30 U/LNormal0-41ProSt. Luke'S Health – The Woodlands HospitalComment on above:Performed By: #### 49029-2, CMP, 3015-3, #### [facility] ([id number]) [address], [address] [place], [place] [address]Gorgfhmkj [Mass/Vol]0.7 mg/dLNormal0.3-1.2ProMedica Doctor'S Hospital Montclair Medical CenterComment on above:Performed By: #### 84225-7, [facility], 3016-3, #### [facility] ([id number]) [address] [place] [address], [address] [place], [place] [address]Pprfmjxab.direct [Mass/Vol]0.2 mg/dLNormal0.0-0.4ProSt. Luke'S Health – The Woodlands HospitalComment on above:Performed By: #### 48728-9, [facility], [facility]-3, #### [facility] ([id number]) [address] [place] [address], [facility] [address] [place], [place] [address]Lyxdijh [Mass/Vol]6.7 g/dLNormal6.0-8.0ProSt. Luke'S Health – The Woodlands HospitalComment on above:Performed By: #### 13943-0, [facility], [facility]3, #### [facility] ([id number]) [address] [place] [address], [address] [place], [place] [address]VPORWLOWIlk 38-25-9042Sjcoiwboi [Mass/Vol]1.7 mg/dLLow1.8-2.6 [facility] Hospitaledica Doctor[facility] Hospital Montclair Medical CenterComment on above:Performed By: #### 16425-7, [facility], 6-3, #### [facility] ([id number]) [address] [place] [address], [address] [place], [place] [address]ZCA Qnon 34-51-7801CMB2.07 uIU/mLNormal0.49-4.67ProSt. Luke'S Health – The Woodlands HospitalComment on above:Performed By: #### 10754-8, [facility], -3, #### [facility] ([id number]) [address] [place] [address], [address] [place], [place] [address]Mpunzfb D+Metabolites [Mass/Vol]on 50-61-4529GTZUTAE D 25 HYD TOT86.7 ng/sNQpvrwq04-330XrcUlgmai Fremont HospitalComment on above:Result Comment: Vitamin D status 25 [place] Vitamin D Deficiency <20 ng/mL Insufficiency 20-29 ng/mL Sufficiency 30-100 ng/mL Toxicity >100 ng/mL NOTE: A pediatric reference range has not been established by the trimmer machine of this kit. The [place] [employer] recommends a Vitamin D level of = or >20ng/mL in infants and children.Performed By: #### 83208-0, [facility], 3016-3, 71228-8 #### [facility] ([id number]) [address] [place], [place] [address]BP THYROIDon [id number] THYROIDUS THYROID CLINICAL INFORMATION: T3 thyrotoxicosis. TECHNIQUE: Real [...] greater than or equal to 1cm, follow-up ultrasoundif nodule is 0.5 - 0.9 cm every year for 5 years. TR4 (4 - 6 points) - FNA if greater than or equal to 1.5 cm, follow-up ultrasound if nodule is 1 -1.4 cm at 1, 2, 3 and 5 years. TR3 (3 points) - FNA if greater than or equal to 2.5 cm, follow-up ultrasound if nodule is 1.5 -2.4cm at 1, 3 and 5 years. TR2 (2 points) & TR1 (0 points) - No FNA or follow-up. Finalized by Nikos Friend MD on 01/06/2024 6:53 AMNormalHenry County Hospitalca [facility] FREE T3on [id number] T3 [Mass/Vol]3.48 pg/mLNormal2.50-3.90ProSt. Luke'S Health – The Woodlands HospitalComment on above:Performed By: #### 61432-1, [facility], 3016-3, 52540-6 #### [facility] ([id number]) [address], [address] [place], [place] [address]Btemwudtv Lab Test IDon [id number] COMP CASCADESEE COMMENTS 01/10/2024 10:26 PMNormalProSt. Luke'S Health – The Woodlands HospitalComcorewell health [facility] on above: Result Comment: NOTE Test Result Flag Unit RefValue Celiac Disease Comprehensive Casc Immunoglobulin A (IgA) [...] instructions. Its performance characteristics were determined by [facility] in a manner consistent with CLIA requirements. This test has not been cleared or approved by the U.S. Food and Drug Administration. CLIA: [id number] CLIA National Sales: ALAN LOUIS MD,PhD Celiac Disease See Note Interpretation See Comment: Celiac disease probable. Consider biopsy. Test Performed by: [facility] - [address] [address] National Sales: Alan Louis M.D. Ph.D.; CLIA# [id number] Test Performed by: [place] [address] National Sales: Alan Louis M.D. Ph.D.; CLIA# [id number] By: #### 92445-3, CMP, 6-3, #### [facility] ([id number]) [address], [address] [place], [place] [address]RSVINZX PROFILEon 44-10-9215Udrv T4 [Mass/Vol]0.82 ng/dLNormal 0.61-1.60ProSt. Luke'S Health – The Woodlands HospitalComment on above:Performed By: #### 59167-3, [facility], 6-3, #### [facility] ([id number]) [address], [address] [place], [place] [address]APV5.41 uIU/mLLow0.49-4.67ProSt. Luke'S Health – The Woodlands HospitalComment on above:Performed By: #### 55169-4, [facility], 6-3, #### [facility] ([id number]) [address] [place] [address], [address] [place], [place] [address]xWF IgA IA Qn (S)on 47-13-2767RHUKFYEOYE ABS IGANegativeNormal NegativeProSt. Luke'S Health – The Woodlands HospitalComment on above:Result Comment: NOTE A negative serum IgA endomysial [...] as indicated by the Celiac Disease Comprehensive [place] ([place] Test Unit Code CDCOM). In addition serum IgA endomysial antibody may also be negative in gluten-sensitive patients (with celiac disease, dermatitis herpetiformis or other gluten-sensitive disorders), who adhere to a strict gluten-free diet. ADDITIONAL INFORMATION This test has been modified from the trimmer machine's instructions. Its performance characteristics were determined by [facility] in a manner consistent with CLIA requirements. This test has not been cleared or approved by the U.S. Food and Drug Administration. Test Performed by: [facility] - [address] [address] National Sales: Alan Louis M.D. Ph.D.; CLIA# [id number] By: #### 26762-8, CMP, 3016-3, 31490-9 #### [facility] ([id number]) [address] [place] [address], [address] [place], [place] [address]BFMT T3on 78-41-0192Xrvv T3 [Mass/Vol]3.75 pg/mLNormal2.50-3.90 [facility] Medical CenterComment on above:Performed By: #### THYR, 3051-0, 8099-4 #### [facility] ([id number]) [address] [place] [address], [address] [place] [address] #### 40507-5 #### [facility] ([id number]) [address] [place] [address]Hpbxflhyf inhibiting substance [Mass/Vol]on 69-25-9505MKKS MULLERIAN HORMSee BelowNormalProMedica Doctor'S Hospital Montclair Medical CenterComment on above:Result Comment: NOTE TEST RESULT FLAG UNIT REF.RANGE Anti Mclean Hormone 0.37 L ng/mL 0.58-8.13 Test Performed By: [facility] [employer] [address] [place] [address] Hr Operations Advisor: Eloy Dangelo III, M.D. CLIA #[id number] By: #### 37586-3, CMP, 3016-3, 06539-7 #### [facility] ([id number]) [address] [place] [address], [address] [place], [place] [address]CRGFSIP PROFILEon 49-71-7621Nmjb T4 [Mass/Vol]0.94 ng/dLNormal 0.61-1.60ProSt. Luke'S Health – The Woodlands HospitalComment on above:Performed By: #### THYR, 3051-0, 8099-4 #### [facility] ([id number]) [address] [place] [address], [address] [place] [address] #### 93061-5 #### [facility] ([id number]) [address] [place] [address]WYF2.19 uIU/mLLow0.49-4.67ProSt. Luke'S Health – The Woodlands HospitalComment on above:Performed By: #### THYR, 3051-0, 8099-4 #### [facility] ([id number]) [address] [place] [address], [address] [address] #### 11755-8 #### [facility] ([id number]) [address] [place] [address]FMOHITJBGYNVDMT ABon 62-90-7985TXF Ab Qn415 [IU]/mLHigh<10 [facility] Medical CenterComment on above:Performed By: #### THYR, 3051-0, 8099-4 #### [facility] ([id number]) [address] [place] [address] #### 35840-2 #### [facility] ([id number]) [address] [place] [address]Qkkoyld stimulating immunoglobulins Qn (S)on 31-36-7267ZLIEvq BelowNormalProSt. Luke'S Health – The Woodlands HospitalComment on above:Result Comment: NOTE TEST RESULT FLAG UNIT REF.RANGE TSI Qualitative Positive A Negative TSI 1.84 H IU/L <0.55 Thyroid Stimulating Immunoglobulin test is used as an aid in diagnosis of autoimmune hyperthyroidism especially in patients with Grave's orbitopathy and dermopathy. Low positive TSH receptor stimulating antibody levels may occasionally be found in patients with autoimmune hypothyroidism. Clinical correlation is required. Test Performed By: [place] [address] Hr Operations Advisor: Patti Jacobs III #[id number] By: #### 58685-8, [facility], 3016-3, 51110-9 #### [facility] ([id number]) [address] [place] [address], [address] [place], [place] [address]Krodusbbk inhibiting substance [Mass/Vol]on 92-90-0354BWQU MULLERIAN HORMSee BelowNormalProMedica Doctor'S Hospital Montclair Medical CenterComment on above:Result Comment: NOTE TEST RESULT FLAG UNIT REF.RANGE Anti Mclean Hormone 0.31 L ng/mL 0.58-8.13 Test Performed By: [place] [address] Hr Operations Advisor: Patti Jacobs III #[id number] By: #### 43455-0 #### [facility] ([id number]) [address] [place] [address], [place] [address] #### 2839-9 #### [facility] ([id number]) [address] [place] [address], [address] [place], [place] [address]Fwwaccjnmtbd [Mass/Vol]on 31-70-1896ZGOURISYTISQ9.5 ng/mLNormal ProMMission Hospital of Huntington ParkComment on above:Result Comment: FEMALES: 1st Tri: 4.7-50.7 ng/ml 2nd Tri: 19.4-45.3 ng/ml MENSTRUATING FEMALES: Follicular: 0.3-1.5 ng/ml Mid Luteal: 5.2-18.6 ng/ml Post [place]: <0.1-0.8 ng/ml Performed By: #### 85573-0 #### [facility] ([id number]) [address] [place] [address], [place] [address] #### 2839-9 #### [facility] ([id number]) [address], [address] [place], [place] [address]DY PELVIC WITH TRANSVAGINALon 21-64-6261NX PELVIC WITH TRANSVAGINALUS PELVIC WITH TRANSVAGINAL Clinical history: Pelvic pain Findings:Transabdominal ultrasound was [...] given differences in technique when compared with theprior exam of 01/02/2023. This warrants continued imaging surveillance given the sonographic appearance. Specifically follow-up ultrasound in 3-4 months is advised. Finalized by Nikos Friend MD on 12/13/2023 6:28 PMNormalUniversity Hospitals Ahuja Medical Center Surgical Pathology Reporton [id number] Pathology Report(NOTE) Path Number: [id number] -- Diagnosis -- GALLBLADDER, CHOLECYSTECTOMY: -CHRONIC CHOLECYSTITIS [...] lesions or periductal lymph nodes are identified. Bead Wire Taper sections 1c. tm Peggy Dayday/анна2:11/27/2023 Microscopic Description Microscopic examination performed. Processing Lab: [address] [address] [place] [address] SURGICAL PATHOLOGY CONSULTATION Patient Name: PHILLIP NORIEGA [facility] Rec: [id number] [employer] [facility] ANATOMIC PATHOLOGY [address] [place] [address]. [place], [place] [id number] NormalMercy Sierra Kings HospitalCOMPREHENSIVE METABOLIC PANELon 18-85-5426Zmjimxq [Mass/Vol]3.7 g/dLNormal3.2-5.3Pro[facility] Medical CenterComment on above:Performed By: #### 92526-0, [facility], 3016-3, 75325-3 #### [facility] ([id number]) [address] [place] [address], [address] [place] [address]ZXJ [Catalytic activity/Vol]45 U/OZgzlkx56-518NtcPbhvbgSt. Luke'S Health – The Woodlands HospitalComment on above:Performed By: #### 69583-5, CMP, 3016-3, #### [facility] ([id number]) [address], [address] [place] [address]QZT [Catalytic activity/Vol]51 U/LHigh0-31PSt. Elizabeth Hospital ([place], [place]) HospitalComment on above:Performed By: #### 32386-5, CMP, 6-3, #### [facility] ([id number]) [address], [address] [place] [address]Hynoy gap [Moles/Vol]8 mmol/LNormal5-15ProSt. Luke'S Health – The Woodlands HospitalComment on above:Performed By: #### 69711-7, CMP, 6-3, #### [facility] ([id number]) [address], [address] [place] [address]MRE [Catalytic activity/Vol]40 U/LNormal0-41[facility] Ahuja Medical CenterComment on above:Performed By: #### 44947-9, CMP, 3015-3, #### [facility] ([id number]) [address], [address] [place], [place] [address]Qucqsaibx [Mass/Vol]0.7 mg/dLNormal0.3-1.2PSt. Elizabeth Hospital ([place], [place]) HospitalComment on above:Performed By: #### 98233-9, CMP, 3016-3, #### [facility] ([id number]) [address], [address] [place], [place] [address]Dyjzfiw [Mass/Vol]8.8 mg/dLNormal8.5-10.5PSt. Elizabeth Hospital ([place], [place]) HospitalComment on above:Performed By: #### 19754-3, CMP, 3015-3, #### [facility] ([id number]) [address], [address] [place], [place] [address]Bddweeid [Moles/Vol]106 mmol/VHdyege36-196CerKssxjvUniversity Hospitals Ahuja Medical CenterComment on above:Performed By: #### 47015-3, [place], 3015-3, #### [facility] ([id number]) [address], [address] [place], [place] [address]KH8 [Moles/Vol]27 mmol/HGjllai82-22CrjHqibvyOhioHealth Berger Hospital Comment on above:Performed By: #### 18757-4, [facility], 3015-12, #### [facility] ([id number]) [address], [address] [place] [address]Ukvulrsiqk [Mass/Vol]0.60 mg/dLNormal0.40-1.00[facility] Ahuja Medical CenterComment on above:Result Comment: METHOD TRACEABLE TO IDMS STANDARD Performed By: #### 02057-1, [facility], 3015-12, #### [facility] ([id number]) [address], [address] [place], [place] [address]kJXB (CKD-EPI) NON-RACE DEPENDENT>90Normal>59ProSt. Luke'S Health – The Woodlands HospitalComment on above:Result Comment: Reported eGFR is based on the CKD-EPI 2020 equation that does not use a race coefficient.Performed By: #### 48880-4, [facility], 3015-3, #### [facility] ([id number]) [address], [address] [place], [place] [address]Djgibcs [Mass/Vol]79 mg/oBQcpdvu90-56OutUtjvdeUniversity Hospitals Ahuja Medical Center Comment on above:Performed By: #### 57633-4, [place], 3015-3, #### [facility] ([id number]) [address], [address] [place], [place] [address]Zmjfehrbm [Moles/Vol]3.8 mmol/LNormal3.5-5.0ProSt. Luke'S Health – The Woodlands HospitalComment on above:Performed By: #### 98792-7, [facility], [facility]3, #### [facility] ([id number]) [address], [address] [place] [address]Fvmbyjn [Mass/Vol]6.4 g/dLNormal6.0-8.0ProSt. Luke'S Health – The Woodlands HospitalComment on above:Performed By: #### 12320-9, [facility], -3, #### [facility] ([id number]) [address], [address] [place] [address]Sxbvmh [Moles/Vol]141 mmol/VUkcktm382-915TglRwtjrw [facility]remont HospitalComment on above:Performed By: #### 81045-5, [facility], [facility]3, #### [facility] ([id number]) [address], [address] [place] [address]Vjtt nitrogen [Mass/Vol]11 mg/dLNormal5-23ProSt. Luke'S Health – The Woodlands HospitalComment on above:Performed By: #### 58723-2, [facility], [facility]3, #### [facility] ([id number]) [address], [address] [place] [address]YELLGWRSYwr 34-87-3144Gtjewgbne [Mass/Vol]1.8 mg/dLNormal1.8-2.6 ProMMission Hospital of Huntington ParkComment on above:Performed By: #### 22357-1, [facility], [facility]3, #### [facility] ([id number]) [address], [address] [place] [address]YLP Qnon 53-76-1551GRR5.19 uIU/mLLow0.49-4.67ProSt. Luke'S Health – The Woodlands HospitalComment on above:Performed By: #### 23705-0, [facility], 3016-3, 71144-7 #### [facility] ([id number]) [address] [place] [address], [address] [place], [place] [address]Msarexc D+Metabolites [Mass/Vol]on 19-69-0716ZUECPOE D 25 HYD TOT65.7 ng/zCMbgdnw20-294TcgGawceeUniversity Hospitals Ahuja Medical CenterComment on above:Result Comment: Vitamin D status 25 [place] Vitamin D Deficiency <20 ng/mL Insufficiency 20-29 ng/mL Sufficiency 30-100 ng/mL Toxicity >100 ng/mL NOTE: A pediatric reference range has not been established by the trimmer machine of this kit. The [place] [employer] recommends a Vitamin D level of = or >20ng/mL in infants and children.Performed By: #### 45253-5, [facility], 3016-3, 41851-3 #### [facility] ([id number]) [address] [place] [address], [address] [place], [place] [address]JDF AUTO DIFFon 61-70-6312QWNK #0.0 103/ulNormal0.0-0.1Tri[facility]hesda North HospitalComment on above:Performed By: #### CBC #### [facility] [address] [place] [address] [address] Froy CalderónBasophils/100 WBC (Bld)0.6 %Normal0.2-2.0The [facility] Comment on above:Performed By: #### CBC #### [facility] [address] [address] [address] Froy Dyer #0.3 103/ulNormal0.0-0.7The [facility]al HospitalComment on above: Performed By: #### CBC #### [facility] [address] [address] [address] Froy Gravesosinophils/100 WBC (Bld)3.9 %Normal0.9-7.0The [facility] Comment on above:Performed By: #### CBC #### [facility] [address] [place] [address] Dr. Froy Gravesrythrocyte distribution width (RBC) [Ratio]12.0 %Asyntw76.0-15.0 The [facility] HospitalComment on above:Performed By: #### CBC #### [facility] [address] [place] [address] Dr. Fory CalderónHematocrit (Bld) [Volume fraction]38.6 %Slndgb87.0-48.0The [facility] HospitalComment on above:Performed By: #### CBC #### [facility] [address] [place] [address] Dr. Froy CalderónHemoglobin (Bld) [Mass/Vol]12.9 g/nOFfslfg07.0-16.0The [facility] HospitalComment on above:Performed By: #### CBC #### [facility] [address] [place] [address] Dr. Froy Amaro #0.02 10e3/ulNormal0.00-0.03The [facility] HospitalComment on above:Performed By: #### CBC #### [facility] [address] [place] [address] Dr. Froy Amaro %0.3 %Normal0.0-0.5The [facility]zer Health Systemment on above: Performed By: #### CBC #### [facility] [address] [place] [address] Dr. Froy Montana #1.8 103/ulNormal1.2-3.8The [facility] HospitalComment on above:Performed By: #### CBC #### [facility] [address] [place] [address] Dr. Froy Coynehocytes/100 WBC (Bld)26.5 %Jhfdds94.5-60.0The [facility] HospitalComment on above:Performed By: #### CBC #### [facility] [address] [place] [address] Dr. Froy BurtonUAL DIFF REQNONormalThe [facility] HospitalComment on above: Performed By: #### CBC #### [facility] [address] [address] [address] Froy Bernard (RBC) [Entitic mass]31.3 wxUpvtko89.7-34.0The [facility] HospitalComment on above:Performed By: #### CBC #### [facility] [address] [place] [address] Dr. Froy Bernard (RBC) [Mass/Vol]33.4 g/jIBrduuj09.9-35.2The [facility] HospitalComment on above:Performed By: #### CBC #### [facility] [address] [place] [address] Dr. Froy Bernard (RBC) [Entitic vol]93.7 tAManzfc58.0-99.0The [facility] HospitalComment on above:Performed By: #### CBC #### [facility] [address] [place] [address] Dr. Froy Schrader #0.6 103/ulNormal0.3-0.8The [facility] HospitalComment on above:Performed By: #### CBC #### [facility] [address] [place] [address] Dr. Froy Boxocytes/100 WBC (Bld)8.1 %Normal1.7-12.0[facility] on above:Performed By: #### CBC #### [facility] [address] [place] [address] Dr. Froy Castano #4.2 103/ulNormal1.4-6.5The [facility] HospitalComment on above:Performed By: #### CBC #### [facility] [address] [place] [address] Dr. Froy Deviutrophils/100 WBC (Bld)60.6 %Lhjfej05.0-75.0The [facility] HospitalComment on above:Performed By: #### CBC #### [facility] [address] [place] [address] Dr. Froy Millerlet mean volume (Bld) [Entitic vol]9.2 fLCritically low 9.5-13.5The [facility] HospitalComment on above:Performed By: #### CBC #### [facility] [address] [place] [address] Dr. Froy CalderónPLT226 103/uhMgprdh500-016Qny [facility] HospitalComcorewell health zeeland hospital on above: Performed By: #### CBC #### [facility] [address] [place] [address] Dr. Froy CalderónRBC4.12 106/ulCritically low4.20-5.40The [facility] HospitalComcorewell health zeeland hospital on above:Performed By: #### CBC #### [facility] [address] [place] [address] Dr. Froy CalderónWBC7.0 103/ulNormal4.0-11.0The [facility] HospitalComcorewell health zeeland hospital on above: Performed By: #### CBC #### [facility] [address] [place] [address] Dr. Froy CalderónFREE T4on 79-98-3699Ixgn T4 [Mass/Vol]0.96 ng/dLNormal0.76-1.46 The [facility] HospitalComcorewell health zeeland hospital on above:Performed By: #### FT4 #### [facility] [address] [place] [address] Dr. Froy CalderónGLYCOHEMOGLOBIN A1Con 31-62-2828CHA RECOMMENDATIONSEE BELOWNormal The [facility] HospitalComcorewell health zeeland hospital on above:Result Comment: ADA RECOMMENDED LIMIT 4.0 - 6.0 ADA THERAPEUTIC TARGET < 7.0 ACTION SUGGESTED > 7.0Performed By: #### A1C #### [facility] [address] [place] [address] Dr. Froy CalderónGlucose [Mass/Vol]91 mg/dLNormalThSelect Medical TriHealth Rehabilitation HospitalComcorewell health zeeland hospital on above:Performed By: #### A1C #### [facility] [address] [place] [address] Dr. Froy CalderónHbA1c (Bld) [Mass fraction]4.8 %Normal4.5-6.2The [facility] on above:Performed By: #### A1C #### [facility] [address] [address] [address] Froy CalderónTSHomarck 63-71-0328HNT1.367 uIU/mLCritically high0.358-3.740The [facility] HospitalComment on above:Performed By: #### TSH #### [facility] [address] Froy CalderónUS PELVIS AND TRANSVAGon 05-77-2290NJ PELVIS AND TRANSVAG EXAMINATION: US PELVIS AND [...] to evaluate stability/resolution Electronically authenticated by: NATALIE LOREDO Date: 2023-02-19 09:20[facility] ACOG PANEL 2: 30 to 65on 01-31-2023..NormalThe [facility] HospitalComment on above:Result Comment: Performed at: WBPerformed By: #### [id number] #### [facility] [address] [address] [address] Froy Biggs Gdln ACOG Ciggdou66-96QcdfqxAprGalion Community HospitalComment on above:Performed By: #### [id number] #### [facility] [address] [place] [address] Dr. Froy CalderónDIAGNOSIS:CommentCleveland Clinic Union Hospital on above: Result Comment: NEGATIVE FOR INTRAEPITHELIAL LESION OR MALIGNANCY. Performed at: WBPerformed By: #### [id number] #### [facility] [address] [place] [address] Dr. Froy Parker AptimaNegativeNormalNegativeThe [facility] on above:Result Comment: This nucleic acid amplification test detects fourteen high-risk HPV types (16,18,31,33,35,39,45,51,52,56,58,59,66,68) without differentiation. Performed at: =GPerformed By: #### [id number] #### [facility] [address] [place] [address] Dr. Froy Parker Genotype ReflexCommentCleveland Clinic Union Hospital on above:Result Comment: Criteria not met, HPV Genotype not performed. Performed at: WBPerformed By: #### [id number] #### [facility] [address] [place] [address] Dr. Froy CalderónMethodology:CommentCleveland Clinic Union Hospital on above: Result Comment: This liquid based ThinPrep(R) pap test was screened with the use of an image guided system. Performed at: WBPerformed By: #### [id number] #### [facility] [address] [place] [address] Dr. Froy CalderónNote:CommentNoBellevue Hospital on above:Result Comment: The Pap smear is a screening test designed to aid in the detection of premalignant and malignant conditions of the uterine cervix. It is not a diagnostic procedure and should not be used as the sole means of detecting cervical cancer. Both false-positive and false-negative reports do occur. . Performed at: WBPerformed By: #### [id number] #### [facility] [address] [place] [address] Dr. Froy CalderónPerformed by:CommentNoBellevue Hospital on above: Result Comment: Racheal Villatoro, [employer] Worker Performed at: WBPerformed By: #### [id number] #### [facility] [address] [address] [address] Froy Davis adequacy:[facility] Ridge Medical CenterComment on above:Result Comment: Satisfactory for evaluation. Endocervical and/or squamous metaplastic cells (endocervical component) are present. Performed at: WBPerformed By: #### [id number] #### [facility] [address] [address] [address] Froy Burrisology Cervical or vaginal smear or scraping studyon 2023 NOMS HealthcarePREG QUANT HCGon 95-09-5888MMN QUANT<1NormalTrihealth Bethesda North Hospital Comment on above:Performed By: #### PREGQNT #### [facility] [address] [place] [address] Dr. Froy Caballero RANGESEE BELOWOur Lady of Mercy Hospital - AndersonComment on above: Result Comment: 5-50 0.2-1 WEEK 50-500 1-2 WEEKS 100-5,000 2-3 WEEKS 500-10,000 3-4 WEEKS 1,000-50,000 4-5 WEEKS 10,000-100,000 5-6 WEEKS 15,000-200,000 6-8 WEEKS 10,000-100,000 2-3 MONTHSPerformed By: #### PREGQNT #### [facility] [address] [place] [address] Dr. Froy CalderónBasic Metabolic Panelon 79-08-9784Nbxqh gap [Moles/Vol]10 mmol/L9 - 17 mmol/LBON SECOURS MERCY HEALTHCalcium [Mass/Vol]8.4 mg/dLLow8.6 - 10.4 mg/dLBON SECOURS MERCY HEALTHChloride [Moles/Vol]107 mmol/L98 - 107 mmol/LBON SECOURS MERCY HEALTHCO2 [Moles/Vol]21 mmol/L20 - 31 mmol/LBON SECOURS [facility]ALTHCreatinine [Mass/Vol]0.61 mg/dL0.5 - 0.9 mg/dLBON SECOURS MERCY HEALTHGFR >6060 - PINF mL/minBON SECOURS MERCY HEALTHGFR Non->6060 - PINF mL/minCLINCH VALLEY MEDICAL CENTERGFR/1.73 sq M.predicted MDRD (S/P/Bld) [Vol rate/Area][facility] CENTERComment on above:Average GFR for 20-29 years old: 116 mL/min/1.73sq m Chronic Kidney Disease: <60 mL/min/1.73sq m Kidney failure: <15 mL/min/1.73sq m eGFR calculated using average adult body mass. Additional eGFR calculator available at: http://www.[employer]/multiple_crcl_2012.htm Glucose [Mass/Vol]107 mg/bZFait89 - 99 mg/dLBON [facility] Interpretation and review of laboratory resultsAbnoSmyth County Community Hospital Potassium [Moles/Vol]5.0 mmol/L3.7 - 5.3 mmol/LBON ADAMS COUNTY REGIONAL MEDICAL CENTERSodium [Moles/Vol]138 mmol/L135 - 144 mmol/LBON ADAMS COUNTY REGIONAL MEDICAL CENTERUrea nitrogen (BldV) [Mass/Vol]7 mg/dL6 - 20 mg/dLBON SIOUX FALLS SURGICAL CENTERCBCon 74-17-2493Vacoztduyo (Bld) [Volume fraction]39.8 %36.3 - 47.1 %[facility] MEDICAL CENTERHemoglobin (Bld) [Mass/Vol]13.4 g/dL11.9 - 15.1 g/dLBON ADAMS COUNTY REGIONAL MEDICAL CENTERInterpretation and review of laboratory resultsAbnormalBALLAD HEALTHH (RBC) [Entitic mass]30.1 pg25.2 - 33.5 pgBALLAD HEALTHHC (RBC) [Mass/Vol]33.7 g/dL28.4 - 34.8 g/dLBON THE CHRIST HOSPITALV (RBC) [Entitic vol]89.4 fL82.6 - 102.9 fLCLINCH VALLEY MEDICAL CENTERNRBC Automated0.00.0 per 100 WBCCLINCH VALLEY MEDICAL CENTERPlatelet distribution width (Bld) [Ratio]11.6 %Low11.8 - 14.4 %[facility]ICAL CENTERPlatelet mean volume (Bld) [Entitic vol]9.6 fL8.1 - 13.5 fLBON ADAMS COUNTY REGIONAL MEDICAL CENTERPlatelets (Bld) [#/Vol]217 10*3/uLBON SECUNIVERSITY HOSPITALS GENEVA MEDICAL CENTERRBC (Bld) [#/Vol]4.45 10*6/uL3.95 - 5.11 m/uLBON SECUNIVERSITY HOSPITALS GENEVA MEDICAL CENTERWBC (Bld) [#/Vol]13.6 10*3/uLHighBON ADAMS COUNTY REGIONAL MEDICAL CENTERBON SECUNIVERSITY HOSPITALS GENEVA MEDICAL CENTERBasic Metabolic Panelon 03-59-1705Jfuqv gap [Moles/Vol]14 mmol/L9 - 17 mmol/LBON ADAMS COUNTY REGIONAL MEDICAL CENTERCalcium [Mass/Vol]8.8 mg/dL8.6 - 10.4 mg/dLBON ADAMS COUNTY REGIONAL MEDICAL CENTERChloride [Moles/Vol]103 mmol/L98 - 107 mmol/LBON ADAMS COUNTY REGIONAL MEDICAL CENTERCO2 [Moles/Vol]18 mmol/LLow20 - 31 mmol/LBON ADAMS COUNTY REGIONAL MEDICAL CENTERCreatinine [Mass/Vol]0.66 mg/dL0.5 - 0.9 mg/dLBON [facility] Domain AppsGFR >6060 - PINF mL/minCLINCH VALLEY MEDICAL CENTERGFR Non->6060 - PINF mL/minBON ADAMS COUNTY REGIONAL MEDICAL CENTERGFR/1.73 sq M.predicted MDRD (S/P/Bld) [Vol rate/Area][facility] CENTERComment on above:Average GFR for 20-29 years old: 116 mL/min/1.73sq m Chronic Kidney Disease: <60 mL/min/1.73sq m Kidney failure: <15 mL/min/1.73sq m eGFR calculated using average adult body mass. Additional eGFR calculator available at: http://www.[employer]/multiple_crcl_2012.htm Glucose [Mass/Vol]126 mg/cRWhpe62 - 99 mg/dLBON [facility] Interpretation and review of laboratory resultsAbnormalBON ST[facility] Domain [employer] Potassium [Moles/Vol]4.3 mmol/L3.7 - 5.3 mmol/LBON SECUNIVERSITY HOSPITALS GENEVA MEDICAL CENTERSodium [Moles/Vol]135 mmol/L135 - 144 mmol/LBON SECOURS MERCY HEALTHUrea nitrogen (BldV) [Mass/Vol]11 mg/dL6 - 20 mg/dLBON SIOUX FALLS SURGICAL CENTERCBC without Diffon 21-73-7158Scqxtzdfgf (Bld) [Volume fraction]46.4 %36.3 - 47.1 %[facility] CENTERHemoglobin (Bld) [Mass/Vol]15.2 g/aLWnrf32.9 - 15.1 g/dLBON ADAMS COUNTY [facility] MEDICAL CENTERInterpretation and review of laboratory results AbnormalBON THE CHRIST HOSPITALH (RBC) [Entitic mass]29.9 pg25.2 - 33.5 pgBALLAD HEALTHHC (RBC) [Mass/Vol]32.8 g/dL28.4 - 34.8 g/dLBON THE CHRIST HOSPITALV (RBC) [Entitic vol]91.2 fL82.6 - 102.9 fLCLINCH VALLEY MEDICAL CENTERNRBC Automated0.00.0 per 100 WBCCLINCH VALLEY MEDICAL CENTERPlatelet distribution width (Bld) [Ratio]11.9 %11.8 - 14.4 %[facility] Platelet mean volume (Bld) [Entitic vol]9.4 fL8.1 - 13.5 fLCLINCH VALLEY MEDICAL CENTERPlatelets (Bld) [#/Vol]232 10*3/uLCLINCH VALLEY MEDICAL CENTERRBC (Bld) [#/Vol]5.09 10*6/uL3.95 - 5.11 m/uLCLINCH VALLEY MEDICAL CENTERWBC (Bld) [#/Vol]9.0 10*3/uLUVA HEALTH UNIVERSITY HOSPITALPOCT urine pregnancyon 28-73-6572Rvsx HCG ( test) Ql (U)NegativeNEGATIVECLINCH VALLEY MEDICAL CENTERComment on above:Specimens with hCG levels near the threshold of the test (25 mIU/mL) may give a negative or indeterminate result. In such cases, another test should be performed with a new specimen in 48-72 hours. If early is suspected clinically in this setting, correlation with quantitative serum b-hCG level is suggested. [facility]ICAL CENTERGastroenterology Office/Clinic Noteon 03-29-2021 Gastroenterology Office/Clinic NotePatient with constipation, prescribed lactulose may use until [...] for 2 days now, no bowel movements asof yet. Was instructed to continue taking until BM, then daily after. Knows to report to ED if she experiences severe abdominal pain or increase in rectal bleeding. Aware that we will proceed with EGD/Colonoscopy, waiting to schedule, agreeable to plan, no additional questions at this time. Electronically signed by Faith River 03/31/21 14:40 EDT Electronically signed by Magdalene Banerjee 04/03/2021 09:24 EDTBarberton Citizens HospitalConsenton 97-37-9753Fqdeqka [id number]:127Bl[facility] HospitalRegistrationon 55-85-8712Vkfjjfgvsqqb [id number]#1.00CD:[address] [place] [address] Vital Signs Date TimeVital SignValuePerforming QhnfkvscaZpcocbmk20-75-7509 06:50-0400Body ynflpc651.8 cmPH[facility]ICIAN [facility] 06:50-0400Body .66 kgPHYSICIAN [facility]09-04-2025 13:22-0400Body nahdzq525.3 cmJoey Jama NP Work Phone: [facility] CenterKqfmayktog25-20-5956 13:22-0400Body mass index (BMI) [Ratio]22.18 kg/t6YmqneyigJoey Jama NEONATAL SURGEON Work Phone: [phone])102-[facility] CenterAuvkqejsds90-69-5317 13:22-0400Body .12 kgJoey Jama NEONATAL SURGEON Work Phone: [phone]-[facility] CenterXkoczwkpyo83-98-5872 13:22-0400Diastolic blood upatqtvz62 mm[Hg]Joey Jama NEONATAL SURGEON Work Phone: [facility] CenterAruvvvebvb18-71-6160 13:22-0400Systolic blood kwqnluxr908 mm[Hg]Joey aJma NEONATAL SURGEON Work Phone: [facility] CenterBhipwopepe82-29-1609 14:42-0400Body mass index (BMI) [Ratio]23.54 kg/i9Udggs Fe DO Work Phone: [facility] CenterSniyjmqadq00-24-9682 14:42-0400Body tdtohc41.57 kgCorey Ef DO Work Phone: [facility] CenterVuxstsglrt99-36-0484 14:42-0400Diastolic blood zsycxypt28 mm[Hg]Jake Fe DO Work Phone: [facility] CenterQuujvypfis19-15-2220 14:42-0400Systolic blood tuiuglxc940 mm[Hg]Jake Fe DO Work Phone: 1(545)[facility] [place], [place] [address]Sgcgptoxrd41-33-7288 13:08-0400Body mass index (BMI) [Ratio]23.96 kg/a1Ljwcp Fe DO Work Phone: 1(691)[facility] [place], [place] [address]Mzqjgpsdpp04-76-5646 13:08-0400Body mnipqf89.93 kgCorey Fe DO Work Phone: 1(313)[facility] [place], [place] [address]Bbnjykzwyr32-08-1989 13:08-0400Diastolic blood hgiuqsqb68 mm[Hg]Jake Fe DO Work Phone: 1(215)[facility] [place], [place] [address]Gkyjjanrnu54-58-4925 13:08-0400Systolic blood mm[Hg]Jake Fe DO Work Phone: 1(478)[address] [place], [place] 8914802-26-2025 11:51-0500Body mass index (BMI) [Ratio]28.09 kg/a3Tcajd Fe DO Work Phone: 1(214)[facility] [place], [place] [address]Ypflmqtyor41-97-4368 11:51-0500Body evzqye45.35 kgCorey Fe DO Work Phone: 1(929)[facility] [place], [place] [address]Ldcohkkyfz68-64-5472 11:51-0500Diastolic blood ieijxnlw74 mm[Hg]Jake Fe DO Work Phone: 1(969)[facility] [place], [place] [address]Orboufyyzz18-55-0331 11:51-0500Systolic blood rlwixpkg186 mm[Hg]Jake Fe DO Work Phone: 1(540)[address] [place], [place] 8914802-19-2025 10:40-0500Body mass index (BMI) [Ratio]27.75 kg/l3Cuneu Fe DO Work Phone: 1(359)[address] [place], [place] 8914802-19-2025 10:40-0500Body yxxajr44.27 kgCorey Fe DO Work Phone: 1(195)[facility] [place], [place] [address]Uwoqhpvzwa51-44-9725 10:40-0500Diastolic blood ajflqhwj50 mm[Hg]Jake Fe DO Work Phone: 1(269)621-[address] [place], [place] [address]Nxmpwnlktb51-50-8405 10:40-0500Systolic blood sbggjyzn728 mm[Hg]Jake Fe DO Work Phone: 1(678)[address] [place], [place] 8914802-05-2025 10:45-0500Body mass index (BMI) [Ratio]27.17 kg/h7Ehmio Fe DO Work Phone: 1(908)[facility] [place], [place] [address]Xanlbhuota80-93-8387 10:45-0500Body .36 kgCorey Fe DO Work Phone: 1(707)[address] [place], [place] 8914802-05-2025 10:45-0500Diastolic blood vzdocasf76 mm[Hg]Jake Fe DO Work Phone: 1(409)[facility] [place], [place] [address]Dgybvcphjn46-37-3935 10:45-0500Systolic blood qpypladb165 mm[Hg]Jake Fe DO Work Phone: 1(881)[address] [place], [place] 8914801-24-2025 09:56-0500Body mass index (BMI) [Ratio]27.66 kg/a6DjouiqRonaldo Mcnulty MD Work Phone: 1(304)[address] [place], [place] 6446701-24-2025 09:56-0500Body pxhfry98.45 kgRonaldo Mcnulty MD Work Phone: 1(563)[address] [place], [place] 6446701-24-2025 09:56-0500Diastolic blood mm[Hg]Ronaldo Mcnulty MD Work Phone: 1(036)[address] [place], [place] 6446701-24-2025 09:56-0500Heart rate 86 /minRonaldo Mcnulty MD Work Phone: 1(361)[address] [place], [place] 6446701-24-2025 09:56-0500Systolic blood hmmhbavh891 mm[Hg]Ronaldo Mcnulty MD Work Phone: 1(998)[address] [place], [place] 6446701-22-2025 15:49-0500Body mass index (BMI) [Ratio]27.06 kg/l5Anhrh Fe DO Work Phone: 1(990)[address] [place], [place] 8914801-22-2025 15:49-0500Body tufcpf61 kg Jake Fe DO Work Phone: 1(872)[address] [place], [place] 8914801-22-2025 15:49-0500Diastolic blood mm[Hg]Jake Fe DO Work Phone: [phone])[address] [place], [place] 8914801-22-2025 15:49-0500Systolic blood iqhnpdfl653 mm[Hg]Jake Fe DO Work Phone: 1(419)[address] [place], [place] 8914801-08-2025 14:47-0500Body mass index (BMI) [Ratio]27.03 kg/f3Oaueo Fe DO Work Phone: 1(419)[address] [place], [place] 8914801-08-2025 14:47-0500Body qzigln68.91 kgCorey Fe DO Work Phone: 1(332)[address] [place], [place] 8914801-08-2025 14:47-0500Diastolic blood pazyjjhf75 mm[Hg]Jake Fe DO Work Phone: 1(048)[address] [place], [place] 8914801-08-2025 14:47-0500Systolic blood mm[Hg]Jake Fe DO Work Phone: 1(098)[address] [place], [place] 8914812-26-2024 11:17-0500Body mass index (BMI) [Ratio]26.33 kg/h0Wxzad Fe DO Work Phone: 1(499)[address] [place], [place] 8914812-26-2024 11:17-0500Body epzepn53.64 kgCorey Fe DO Work Phone: 1(419)[address] [place], [place] 8914812-26-2024 11:17-0500Diastolic blood cgtegdmk42 mm[Hg]Jake Fe DO Work Phone: [phone])[address] [place] [address]-26-2024 11:17-0500Systolic blood btaeceba680 mm[Hg]Jake Fe DO Work Phone: 1(714)[address] [place], [place] 8914812-03-2024 09:25-0500Body mass index (BMI) [Ratio]25.8 kg/c6Zweby Fe DO Work Phone: 1(419)[address] [place], [place] 8914812-03-2024 09:25-0500Body hfytgx37.92 kgCorey Fe DO Work Phone: 1(915)[facility] [place], [place] [address]Cnsprerzke55-24-9278 09:25-0500Diastolic blood mm[Hg]Jake Fe DO Work Phone: 1(574)[facility] [place], [place] [address]Lybyyqxaqo55-58-5939 09:25-0500Systolic blood nedvstnu772 mm[Hg]Jake Fe DO Work Phone: 1(953)[address] [place], [place] 8914811-05-2024 11:46-0500Body mass index (BMI) [Ratio]24.69 kg/a2Pzxxz Fe DO Work Phone: 1(046)[facility] [place], [place] [address]Fsgkgjpgof69-70-5099 11:46-0500Body kvudio00.29 kgCorey Fe DO Work Phone: 1(177)[facility] [place], [place] [address]Yosqvgwvvz74-24-0538 11:46-0500Diastolic blood qapzyyrk38 mm[Hg]Jake Fe DO Work Phone: 1(647)[address] [place], [place] 8914811-05-2024 11:46-0500Systolic blood mm[Hg]Jake Fe DO Work Phone: 1(110)[address] [place], [place] 8914810-07-2024 09:04-0400Body mass index (BMI) [Ratio]23.85 kg/m2Amy Yuliana VELAZCO Work Phone: 1(672)[facility] [place], [place] [address]Idfnkchlgt83-22-6065 09:04-0400Body lcdgla70.56 kgAmy Yuliana VELAZCO Work Phone: 1(563)[facility] [place], [place] [address]Ixmycgjtia91-21-3797 09:04-0400Diastolic blood fwdfbytg02 mm[Hg]Katherine VELAZCO Work Phone: 1(569)[facility] [place], [place] [address]Patwlsxhsb98-17-7380 09:04-0400Systolic blood avpoqytj928 mm[Hg]Katherine VELAZCO Work Phone: 1(601)[facility] [place], [place] [address]Loauenpfcs03-23-4022 09:24-0400Body mass index (BMI) [Ratio]22.59 kg/m8Qrukn Fe DO Work Phone: 1(419)[address] [place], [place] 8914809-10-2024 09:24-0400Body oiuctc91.48 kgJake Miramontes DO Work Phone: [facility] CenterBhzebyhopo91-45-8833 09:24-0400Diastolic blood zfldetlw80 mm[Hg]Jake Miramontes DO Work Phone: [facility] CenterBsvjqosjtl43-94-7909 09:24-0400Systolic blood thflgaeg598 mm[Hg]Jake Miramontes DO Work Phone: [facility] CenterDxbdcpnrww48-12-9403 11:11-0400Body temperature 99.3 [degF]Bret Wetzel DO Work Phone: [employer] [facility] SYSTEMChrist[facility] Care Health SystemsNFORLV19-81-6185 11:11-0400Diastolic blood cetpwrix17 mm[Hg]Bret Wetzel DO Work Phone: [facility] [employer] [facility] SYSTEMChrist[facility] Care Health SystemsRDVLMS51-56-8910 11:11-0400Heart rate63 /minBret Wetzel DO Work Phone: [employer] [facility] SYSTEMChrist[facility] Health SystemsWWAIKH75-34-6367 11:11-0400 Respiratory rate16 /minBret Wetzel DO Work Phone: [employer] [facility] SYSTEMChrist[facility] Care Health SystemsLBMVVB56-97-7441 11:11-2054AcW6% (BldA) [Mass fraction]99 %Bret Wetzel DO Work Phone: [facility] [employer] [facility] SYSTEMChrist[facility] Health SystemsCROXIK00-02-2107 11:11-0400Systolic blood fdceijfc726 mm[Hg]Bret Wetzel DO Work Phone: [employer]09-06-2022 09:50-0400Body .8 cmBret Wetzel DO Work Phone: [employer]09-06-2022 09:50-0400Body mass index (BMI) [Ratio]38.17 kg/j2ZqhuwpvBret Wetzel DO Work Phone: [employer]09-06-2022 09:50-0400Body lnmuth001.66 kgBret Wetzel DO Work Phone: [facility] Encounters Encounter DateEncounter TypeCare ProviderFacilityStart: 08-18-2025 End: 07-37-9216ztmjksvtriNLQTXHZZQWS [facility] Start: 08-03-2025 End: 77-34-7535Ryirqgb encounter procedureBeatrizanh Andrew KENDALL[facility] [place] Work Phone: Start: 08-03-2025 End: 33-16-0197wbgzjpjlevMKYPRITIL [facility] Work Phone: Start: 07-15-2025 End: 12-92-8439cldbgnhfxeVXJDH FAZIONot AvailableStart: 07-15-2025 End: 30-53-5043Ecneak digital e/m svc est pt <7 d 5-10 minutesCorey Fe DO Work Phone: noms Jaime OBGYNComment on above:Post depression ; anxiety ([facility]-HCC)Start: 07-13-2025 End: 38-24-9214Cvhbvfqsw department patient visitCOREY [facility] Ambulatory PPGStart: 07-01-2025 End: 95-47-3251Rauhvu outpatient visit 15 minutesJoey Jama NP Work Phone: noms Jaime OBGYNComment on above:Mood changes (Primary Dx); Post depression ; anxiety ([facility]-HCC); Intrauterine device surveillanceStart: 07-01-2025 End: 71-44-3644alhuijvcafPJYMMVWD EBERLYNot AvailableStart: 03-31-2025 End: 11-81-5549Hxuwczi encounter procedureCorey Fe DO Work Phone: noms BCP OBComment on above:Encounter for insertion of Mirena IUDStart: 03-31-2025 End: 65-59-8542wblsgtzpfnPLPPY FAZIONot AvailableStart: 03-09-2025 End: 92-47-6581Jupoyn flowsheetCorey Fe DO Work Phone: [facility]OM[facility] BCP OBStart: 03-09-2025 End: 84-19-5173Gwpmbp flowsheetCorey Fe DO Work Phone: [facility] BCP OBStart: 03-09-2025 End: 89-49-0819Tkmdgo outpatient visit 15 minutesCorey Fe DO Work Phone: [facility] BCP OBComment on above:Pre-operative exam; Request for sterilization; Menorrhagia with regular cycleStart: 03-09-2025 End: 64-78-1228Bdgtevrwudwiz examination doneCorey Fe DO Work Phone: [facility] Work Phone: Start: 03-09-2025 End: 69-31-2466jjnjxnqovrIIVBM FAZIONot AvailableStart: 02-11-2025 End: 47-15-7394Vqhhcm outpatient visit 15 minutesCorey Fe DO Work Phone: [facility] BCP OBComment on above:6 weeks follow-upStart: 02-11-2025 End: 56-70-5382gdnvrgnagqVMTPD FAZIONot AvailableStart: 12-26-2024 End: 56-29-8106Hzuihgqfw Result EncounterCorey Fe DO Work Phone: [facility] External Department UnsolicitedStart: 12-26-2024 End: 44-38-1801Ookztppgi Result EncounterCorey Fe DO Work Phone: [facility] External Department UnsolicitedStart: 12-25-2024 End: 17-50-8265Kgoosbwcr Result EncounterCorey Fe DO Work Phone: [facility] External Department UnsolicitedStart: 12-25-2024 End: 68-78-7961Vaesrwapx Result EncounterCorey Fe DO Work Phone: [facility] External Department UnsolicitedStart: 12-23-2024 End: 41-60-5345Zxwlnj flowsheetCorey Fe DO Work Phone: [facility] BCP OBStart: 12-23-2024 End: 27-13-2395Mgforb flowsheetCorey Fe DO Work Phone: NOYP BCP OBStart: 12-23-2024 End: 38-69-5899Zlbbiheon Result EncounterCorey Fe DO Work Phone: noms External Department UnsolicitedStart: 12-23-2024 End: 30-36-9632Tbadli outpatient visit 15 minutesCorey Fe DO Work Phone: [facility] BCP OBComment on above:37 weeks gestation of ; Third trimester pregnancyStart: 12-23-2024 End: 88-77-2829fkntzqgraaZYTZK FAZIONot AvailableStart: 12-17-2024 End: 12-56-4424Zvzhxqgrw Result EncounterCorey Fe DO Work Phone: noms External Department UnsolicitedStart: 12-17-2024 End: 69-23-0186Nrznsnpzn Result EncounterCorey Fe DO Work Phone: noms External Department UnsolicitedStart: 12-16-2024 End: 64-45-4767Aoxxoe flowsheetCorey Fe DO Work Phone: NOZK BCP OBStart: 12-16-2024 End: 26-09-5431Iwbpam flowsheetCorey Fe DO Work Phone: [facility] BCP OBStart: 12-16-2024 End: 74-02-3532Jzgemkqtc Result EncounterCorey Fe DO Work Phone: [facility] External Department UnsolicitedStart: 12-16-2024 End: 52-34-6896Kyhnob outpatient visit 15 minutesCorey Fe DO Work Phone: noMS BCP OBComment on above:Third trimester ; 36 weeks gestation of ; Excessive growth affecting management of , antepartum, single or unspecified fetusStart: 12-16-2024 End: 79-96-2009qbpxrvqdhtTLPWE FAZIONot AvailableStart: 12-10-2024 End: 45-97-5924Ghglrnlhi Result EncounterCorey Fe DO Work Phone: noms External Department UnsolicitedStart: 12-10-2024 End: 58-04-5539Wlxhfumws Result EncounterCorey Fe DO Work Phone: noms External Department UnsolicitedStart: 12-02-2024 End: 48-22-0441Cviyoe flowsheetCorey Fe DO Work Phone: NOWA BCP OBStart: 12-02-2024 End: 52-92-3763Jbqmvl flowsheetCorey Fe DO Work Phone: noms BCP OBStart: 12-02-2024 End: 34-89-3980Ceczye outpatient visit 15 minutesCorey Fe DO Work Phone: noms BCP OBComment on above:Third trimester ; 34 weeks gestation of ; Excessive growth affecting management of , antepartum, single or unspecified fetusStart: 12-02-2024 End: 20-24-6877xewvfvfwrsVUSVT FAZIONot AvailableStart: 11-20-2024 End: 57-28-0632Kbuwgs consultation new/estab patient 58 Obed Mcnulty MD Work Phone: [phone]-Nqhbg [facility] Comment on above:H/O gastric sleeve (Primary Dx)Start: 11-18-2024 End: 10-09-4573Gbtgzk outpatient visit 15 minutesCorey Fe DO Work Phone: noms BCP OBComment on above:Third trimester ; 32 weeks gestation of pregnancyStart: 11-18-2024 End: 58-13-5558eduxththcaGBYVQ FAZIONot AvailableStart: 11-18-2024 End: 64-16-9399Iwqcgo flowsheetCorey Fe DO Work Phone: noms BCP OBStart: 11-18-2024 End: 67-54-2421Ugahad flowsheetCorey Fe DO Work Phone: noms BCP OBStart: 11-11-2024 End: 11-73-8938Utafknjl Result EncounterCorey Fe DO Work Phone: [facility] External Department UnsolicitedStart: 11-11-2024 End: 26-48-1281Fgrthobm Result EncounterCorey Fe DO Work Phone: [facility] External Department UnsolicitedStart: 11-11-2024 End: 80-45-3674pmtqzuvxkkVSYJH R [facility] HospitalStart: 11-04-2024 End: 30-79-3864Ddtvev outpatient visit 15 minutesCorey Fe DO Work Phone: NOM[facility] BCP OBComment on above:30 weeks gestation of ; Third trimester ; Diabetes mellitus screeningStart: 11-04-2024 End: 86-70-2137zghzuivjcvLBSXW FAZIONot AvailableStart: 11-04-2024 End: 63-22-5732Emkymn flowsheetCorey Fe DO Work Phone: [facility] BCP OBStart: 11-04-2024 End: 41-00-5473Bomnxe flowsheetCorey Fe DO Work Phone: [facility] BCP OBStart: 10-22-2024 End: 17-38-7072Tpmecz flowsheetCorey Fe DO Work Phone: [facility] BCP OBStart: 10-22-2024 End: 66-26-2692Afhvry flowsheetCorey Fe DO Work Phone: [facility] BCP OBStart: 10-22-2024 End: 35-82-2842Tegfdb outpatient visit 15 minutesCorey Fe DO Work Phone: [facility] BCP OBComment on above:28 weeks gestation of ; Third trimester pregnancyStart: 10-22-2024 End: 80-53-7492fpyhzglaujFUAZW FAZIONot AvailableStart: 10-15-2024 End: 13-55-6363Enjpiuvsg Result EncounterCorey Fe DO Work Phone: [facility] External Department UnsolicitedStart: 10-15-2024 End: 97-20-5390Vqtvihyap Result EncounterCorey Fe DO Work Phone: noms External Department UnsolicitedStart: 09-29-2024 End: 06-16-5422Lvlnpz flowsheetCorey Fe DO Work Phone: noms BCP OBStart: 09-29-2024 End: 24-62-8606Dzngws flowsheetCorey Fe DO Work Phone: noms BCP OBStart: 09-29-2024 End: 59-97-7669Modbmy outpatient visit 15 minutesCorey Fe DO Work Phone: noms BCP OBComment on above:Second trimester ; 25 weeks gestation of ; Diabetes mellitus screening; Gestational diabetes mellitus (GDM), antepartum, gestational diabetes method of control unspecified; Elevated glucose tolerance testStart: 09-29-2024 End: 30-08-1793waatuevqqpJBZDQ FAZIONot AvailableStart: 09-01-2024 End: 72-97-6362Dsaszn flowsheetCorey Fe DO Work Phone: noms BCP OBStart: 09-01-2024 End: 80-05-1446Xbfqfv flowsheetCorey Fe DO Work Phone: noms BCP OBStart: 09-01-2024 End: 69-84-6681Ayxgejgxc Result EncounterCorey Fe DO Work Phone: noms External Department UnsolicitedStart: 09-01-2024 End: 42-09-4399Kodeto outpatient visit 15 minutesCorey Fe DO Work Phone: [facility] OBComment on above:21 weeks gestation of ; Second trimester pregnancyStart: 09-01-2024 End: 65-86-1176hydbfchdnuKWOQC FAZIONot AvailableStart: 08-26-2024 End: 89-90-4133Oshvsagwj department patient visitINGARCIA MCKENZIEMount St. Mary Hospitaltart: 08-15-2024 End: 69-64-1359Fiijjptz Result EncounterCorey Fe DO Work Phone: noms External Department UnsolicitedStart: 08-15-2024 End: 51-61-5831Naazqqbj Result EncounterCorey Fe DO Work Phone: noms External Department UnsolicitedStart: 08-15-2024 End: 31-62-1915uqjjzbyegmPXLCZ R [facility] HospitalStart: 08-03-2024 End: 24-81-0583Qceqfp flowsheetKatherine VELAZCO Work Phone: noms [facility] OBStart: 08-03-2024 End: 23-22-4177Pqkwkk flowsheetKatherine VELAZCO Work Phone: NOFY [facility] OBStart: 08-03-2024 End: 39-45-4749Plifbgdo Result EncounterKatherine VELAZCO Work Phone: noms External Department UnsolicitedStart: 08-03-2024 End: 27-55-8131Bijlhi outpatient visit 15 minutesKatherine VELAZCO Work Phone: noms [facility] OBComment on above:Well woman exam with routine gynecological exam; Exposure to STD; Need for maternal serum alpha-protein (MSAFP) screening; Second trimester ; 17 weeks gestation of ; Screening, , for anatomic surveyStart: 08-03-2024 End: 46-98-6734Tnocoul encounter procedureKatherine VELAZCO Work Phone: noMS HealthcareStart: 08-03-2024 End: 14-71-3464thtsvyhiniXSI Anupama AvailableStart: 07-18-2024 End: 31-39-8361Audtvojy Result EncounterCorey Fe DO Work Phone: noms External Department UnsolicitedStart: 07-18-2024 End: 06-84-5682Wmuwqxdz Result EncounterCorey Fe DO Work Phone: noms External Department UnsolicitedStart: 07-18-2024 End: 17-23-0829nkjgtnznkgBMUPK R [facility] HospitalStart: 07-13-2024 End: 87-16-1468Ozdofm OnlyCorey R Fe DO Work Phone: [phone]-CEAI ATLASComment on above:Hypothyroidism, unspecifiedStart: 07-07-2024 End: 72-31-7618Ourbco flowsheetCorey Fe DO Work Phone: noms [facility] OBStart: 07-07-2024 End: 42-24-8943Kbphcn flowsheetCorey Fe DO Work Phone: noms BCP OBStart: 07-07-2024 End: 55-64-1549Gkejwj outpatient visit 15 minutesCorey Fe DO Work Phone: noms BCP OBComment on above:13 weeks gestation of ; Gastroesophageal reflux in pregnancyStart: 06-20-2024 End: 85-25-5761Xrkkporz Result EncounterCorey Fe DO Work Phone: noms External Department UnsolicitedStart: 06-20-2024 End: 20-33-6723Wqrloovx Result EncounterCorey Fe DO Work Phone: noms External Department UnsolicitedStart: 06-20-2024 End: 97-58-9263xuislwdgrwYVVZF R [facility] HospitalStart: 06-06-2024 End: 49-57-9631Jvwpigpja department patient visitCOREY R [facility] HospitalStart: 06-06-2024 End: 95-71-3273udenysfiavZRZUZ R [facility] HospitalStart: 05-26-2024 End: 85-68-7778Uztmoeyzo department patient visitPAUL R [facility] HospitalStart: 05-19-2024 End: 00-45-1512Bbtwyatjt Result EncounterCorey Fe DO Work Phone: noms External Department UnsolicitedStart: 05-19-2024 End: 20-41-0315Rirntyswb Result EncounterCorey Fe DO Work Phone: noms External Department UnsolicitedStart: 05-14-2024 End: 33-67-3204roivisciusFVLJF R [facility] HospitalStart: 05-11-2024 End: 34-68-7068nrjispblaxZXVXM R [facility] HospitalStart: 05-08-2024 End: 48-56-3113jvdpwwccluGTUGP R [facility] HospitalStart: 05-06-2024 End: 48-46-2790ketnklwbtjKDUTF R [facility] HospitalStart: 05-01-2024 End: 43-49-1059ycyjiafguaMJYRD R [facility] HospitalStart: 04-28-2024 End: 79-84-5126mhvftcrhmfVJYQO K GETSCHLAGProMedica Union Bridge HospitalStart: 02-14-2024 End: 67-21-1452nsbkacixusNBLZK K RUMSCHLAGProMedica Union Bridge HospitalStart: 2024 End: 95-61-3531neszhucgvuSSQFP K RUMSCHLAGProMedica Union Bridge HospitalStart: 01-18-2024 End: 68-42-4219dtnjqvdhkqBVGXZ K RUMSCHLAGProMedica Union Bridge HospitalStart: 01-03-2024 End: 68-20-8455rughinrvbbQZVIU K RUMSCHLAGProMedica Union Bridge HospitalStart: 12-21-2023 End: 41-54-1416ndfidwhqfiQABGP K RUMSCHLAGProMedica Union Bridge HospitalStart: 46-94-1335Suofzp OnlyCorey Eber Miramontes DO Work Phone: [phone]-CQEZ ATLASComment on above:Female infertility associated with anovulation; Personal history of other diseases of the female genital tractStart: 12-13-2023 End: 92-51-6860hdsksopzevWHOPZ K RUMSCHLAGProMedica Union Bridge HospitalStart: 11-27-2023 End: 12-67-8323ozsookgrwfLUWDUTQ R [facility] Start: 11-16-2023 End: 11-20-1061wvuhugraosHMHFF K RUMSCHLAGProMedica Inter-Community Medical Centertart: 03-13-2023 End: 76-42-2317ejyfhvxnqgUY JAKE FE .Facility:M6Vqgxf: 02-19-2023 End: 05-97-6700pismgohwvsEN JAKE FE .Facility:V9Gtpdp: 2023 End: 45-35-6798ntdabcqqteDX JAKE FE .Facility:L7Pgvrc: 12-03-2022 End: 28-25-9031onddvjyalyWR JAKE FE .Facility:C2Dbrdk: 07-03-2022 End: 00-95-3373Eoopwxzfkm hospital visit by physicianBret Wetzel DO Work Phone: stvz 2C Ortho/Med SurgComment on above:S/P laparoscopic sleeve gastrectomy (Primary Dx); Obesity, unspecified classification, unspecified obesity type, unspecified whether serious comorbidity present; Gastroesophageal reflux disease, unspecified whether esophagitis presentStart: 76-78-8738oatrrwvuycLnymmsyl Fofana MDFacility:[facility] Procedures DateProcedureProcedure DetailPerforming ClinicianStart: 28-87-3775PLE of head PHYSICIAN JUMA FAMILYStart: 34-06-6782Pmphk test visual color cmprsn methsCorey Fe DO Work Phone: Start: 77-09-9292PAR INSERTIONCorey Fe DO Work Phone: Start: 25-93-3199Hrnij dip stick/tablet rgnt non-auto w/o micrscpCorey Fe DO Work Phone: Start: 77-67-3564RQE CBC WITH AUTO DIFFCorey Fe DO Work Phone: Start: 87-92-9830VTMP CBC WITH PLATELET NO DIFFERENTIALCorey Fe DO Work Phone: Start: 84-33-8457JJ OB GROWTHCorey Fe DO Work Phone: Start: 36-03-1895JF OB BPP W NON-STRESSCorey Fe DO Work Phone: Start: 53-78-8441LS OB BPP W NON-STRESSCorey Fe DO Work Phone: Start: 61-90-1671Rrsch dip stick/tablet rgnt non-auto w/o micrscpCorey Fe DO Work Phone: Start: 37-51-4029PJO MISCELLANEOUS TESTCorey Fe DO Work Phone: Start: 97-72-8462TY OB BPP W NON-STRESSCorey Fe DO Work Phone: Start: 71-48-2374Jzhav dip stick/tablet rgnt non-auto w/o micrscpCorey Fe DO Work Phone: Start: 31-70-8912Idcli dip stick/tablet rgnt non-auto w/o micrscpCorey Fe DO Work Phone: Start: 39-49-1893Yrwqsfaz blood count with white cell differential, automatedCorey Fe DO Work Phone: Start: 66-10-7918Dpaed dip stick/tablet rgnt non-auto w/o micrscpCorey Fe DO Work Phone: Start: 92-23-8159Owhfr dip stick/tablet rgnt non-auto w/o micrscpCorey Fe DO Work Phone: Start: 92-26-9935ZZ OB GROWTHCorey Fe DO Work Phone: Start: 28-32-3310Pqdzm dip stick/tablet rgnt non-auto w/o micrscpCorey Fe DO Work Phone: Start: 82-80-7029Kicqd dip stick/tablet rgnt non-auto w/o micrscpCorey Fe DO Work Phone: Start: 82-27-2539GQ OB ANATOMYCorey [employer] Work Phone: Start: 04-49-7525OS OB CERVICAL LENGTHCorey [employer] Work Phone: Start: 80-78-1413Pxirq of thyroid stimulating hormone tshCorey [employer] Work Phone: Start: 93-93-6729WVQPDAWOHZ/DISCHARGE PLUS VAGINITIS (HTRX)Katherine VELAZCO Work Phone: Start: 77-62-7300Qteoq dip stick/tablet rgnt non-auto w/o micrscpAmy Yuliana VELAZCO Work Phone: Start: 16-04-6744Vtxkp of thyroid stimulating hormone tshCorey [employer] Work Phone: Start: 46-72-7551Ecxrr dip stick/tablet rgnt non-auto w/o micrscpCorey [employer] Work Phone: Start: 13-68-5644Gdeyfszckip [Units/volume] in Serum or PlasmaCorey [employer] Work Phone: Start: 29-11-9665JE OB TRANSVAGINALCorey [employer] Work Phone: Start: 50-63-4109Bwehfuhruov observation [Identifier] in Cervix by Cyto stainCorey [employer] Work Phone: Start: 27-41-6337Qtpz cerv/vag auto thin layer prep mnl screenCorey [employer] Work Phone: Start: 32-46-9837Xmybd metabolic panel calcium total Bret Wetzel DO Work Phone: Start: 15-50-0245Ssabh metabolic panel calcium total Bret Wetzel [employer] Work Phone: Start: 07-03-2022 End: 23-48-4341Tiic gstrc rstrictiv px longitudinal gastrectomyGregdasia Wetzel DO Work Phone: Start: 10-29-4799Alpsd test visual color cmprsn methsGregory Eber Wetzel DO Work Phone: Start: 69-97-3867Dkdmsmuobyr observation [Identifier] in Cervix by Cyto stainJake Miramontes DO Work Phone: Plan of Treatment DateCare ActivityDetailAuthorStart: 24-52-6201Qtbtfjnfv for malignant neoplasm of cervixNOMS HealthcareStart: 25-09-5722Xzhisuxkj for malignant neoplasm of cervixPap SmearProWoodland Medical Center Health SystemStart: 65-72-7188Ozrht BMI ScreeningAdult BMI ScreeningProTrinity Health Systemca [facility] SystemStart: 75-96-9394Kkhlfcd ScreeningTobacco ScreeningGalion Community Hospital SystemStart: 07-15-2025 End: 88-01-0315Ryumemn encounter /18/2025 8:10 AM EDT Office Visit [facility] Jaime BREGMANN [address] [address] Jake Miramontes, DO [address] [place] [address] NOMS Jaime OBGYNStart: 76-05-5101YJGPO- 19 Vaccine ( season)COVID-19 Vaccine ( season)[facility] HealthcareStart: 75-29-8257Xgozzuxsy vaccinationNOMS HealthcareStart: 06-06-2025 Adult BMI ScreeningAdult BMI ScreeningProTrinity Health Systemca [facility] SystemStart: 05-26-2025 Tobacco ScreeningTobacco ScreeningGalion Community Hospital SystemStart: 04-15-2025 End: 54-47-8641Tvbytdk encounter /19/2025 11:40 AM EDT Office Visit [facility] HAILEY OB [address] [place] [phone] Jake Miramontes, DO [address] [place] [address] NOMS BCP OBStart: 04-12-2025 End: 01-21-8187Zztvahs encounter /16/2025 3:00 PM EDT Office Visit [facility] BCP OB [address] [place] [address] Jake Miramontes, DO [address] [place] [address] [place] [address] NOMS BCP OBStart: 03-09-2025 End: 77-73-8560Cfxlkvl encounter hxrbcunnd69/13/2025 1:00 PM EDT Consult [facility] BCP OB [address] [place] [address] Jake Miramontes, DO [address] [place] [address] [place] [address] ArrivedNOMS BCP OBComment on above:ArrivedStart: 03-04-2025 End: 88-84-0567Tcsbysp encounter iyivtjyht19/08/2025 10:30 AM EDT Office Visit [facility] BCP OB [address] [place] [phone] Jake Miramontes, DO [address] [place] [address] [place] [address] NOMS BCP OBStart: 12-30-2024 End: 91-38-0085Mgczvis encounter /05/2025 1:10 PM EST Routine [facility] BCP OB [address] [address] Jake Miramontes, DO [address] [place] [address] [place] [address] NOMS BCP OBStart: 12-23-2024 End: 51-87-4041Adtdhdd encounter procedureNOMS BCP OBComment on above:Arrived Start: 12-16-2024 End: 19-47-3991IVAPQUM, GROUP B STREP WITH SUSCEPTIBLITYCULTURE, GROUP B STREP WITH SUSCEPTIBLITY Lab Routine Third trimester Expected: 12/16/2024, Expires: 12/16/2025[facility] Work Phone: comment on above:Expected: 12/16/2024, Expires: 12/16/2025Start: 12-16-2024 End: 02-89-0478MS for pregnancyUS OB follow up transabdominal approach Imaging Routine Excessive growth affecting managementof , antepartum, single or unspecified fetus Expected: 12/16/2024, Expires: 12/16/2025NOMS HealthcareComment on above:Expected: 12/16/2024, Expires: 12/16/2025Start: 12-16-2024 End: 44-72-2669Grdxjva encounter procedureNOMS BCP OBComment on above:Arrived Start: 12-02-2024 End: 83-62-3961CQ biophysical profile w non stress testUS biophysical profile w non stress test Imaging Routine Excessive growth affecting management of , antepartum, single or unspecified fetus Expected: 12/02/2024 (Approximate), Expires: 12/02/2025[facility] Work Phone: comment on above:Expected: 12/02/2024 (Approximate), Expires: 12/02/2025Start: 12-02-2024 End: 47-91-6634Pjnqpqo encounter procedureNOMS BCP OBComment on above:Arrived Start: 11-18-2024 End: 90-09-0580Syjbutf encounter procedureNOMS BCP OBComment on above:Arrived Start: 11-04-2024 End: 62-33-4020Rfdrfuo encounter procedureNOMS BCP OBComment on above:Arrived Start: 11-04-2024 End: 58-87-9977JYD W Auto Differential panel - BloodCBC and differential Lab Routine Diabetes mellitus screening Expected: 11/04/2024 (Approximate), Expires: 11/04/2025[facility] Work Phone: comment on above:Expected: 11/04/2024 (Approximate), Expires: 11/04/2025Start: 49-03-9636Eqmty BMI ScreeningAdult BMI Screening [facility] Centertart: 10-22-2024 End: 82-83-1933Mgfrrkp encounter procedureNOMS BCP OBComment on above:Arrived Start: 09-29-2024 End: 23-48-3879LWU panel - Blood by Automated countCBC Lab Routine Diabetes mellitus screening Expected: 09/29/2024 (Approximate), Expires: 09/29/2025[facility] Work Phone: comment on above:Expected: 09/29/2024 (Approximate), Expires: 09/29/2025Start: 09-29-2024 End: 93-02-5392Llkhfipulcq of glucose 1 hour after glucose challenge for glucose tolerance testGlucose tolerance, 1 hour Lab Routine Diabetes mellitus screening Expected: 09/29/2024 (Approximate), Expires: 09/29/2025NO[facility] HealthcareComment on above:Expected: 09/29/2024 (Approximate), Expires: 09/29/2025Start: 09-29-2024 End: 98-89-7725Azpsevo encounter procedureNOMS BCP OBComment on above:Arrived Start: 09-01-2024 End: 48-21-9909Xwfhcay encounter procedureNOMS BCP OBComment on above:Arrived Start: 09-01-2024 End: 35-51-2404Ykhdqlymlrdu / ancillary services cvsgfsosrt04/05/2024 10:30 AM EST Ancillary Procedure [facility]CP OB [address] [place] [place] [phone] NOMS BCP OBStart: 09-01-2024 End: 95-23-8404Xtdhbvt encounter /05/2024 9:20 AM EST Routine [facility]OM[facility] BCP OB [address] [place] [phone] Jake Miramontes, DO [address] [place] [address] NOMS BCP OBStart: 08-03-2024 End: 18-02-9980Efijn fetoprotein, maternalAlpha fetoprotein, maternal Lab Routine Screening, , for anatomic survey Expected: 08/03/2024 (Approximate), Expires: 09/03/2024[facility] Work Phone: comment on above:Expected: 08/03/2024 (Approximate), Expires: 09/03/2024Start: 08-03-2024 End: 50-39-8139WJ for pregnancyUS OB ANATOMY SINGLE W US OB CERVICAL LENGTH Imaging Routine Screening, , for anatomic survey Expected: 08/03/2024 (Approximate), Expires: 08/03/2025NOMS HealthcareComment on above: Expected: 08/03/2024 (Approximate), Expires: 08/03/2025Start: 08-03-2024 End: 24-64-2543Lkbcxvu encounter procedureNOMS BCP OBComment on above:Arrived Start: 07-13-2024 End: 73-73-2778Uqmzfrd profile includes TSH NR5Peymgli profile includes TSH FT4 Lab Routine Hypothyroidism, unspecified Expected: 07/13/2024, Expires: 07/13/2025[facility] Work Phone: comment on above:Expected: 07/13/2024, Expires: 07/13/2025Start: 07-07-2024 End: 47-54-9013Otoplvp encounter procedureNOMS BCP OBComment on above:Arrived Start: 25-82-3249Jquxsfrkc vaccinationNOAL HealthcareStart: 06-01-0310Oqmqvsfyx for malignant neoplasm of cervixPap SmearGalion Community Hospital SystemStart: 12-18-2023 End: 11-66-7030Tbdfjrhmlxykh hormone (AMH)Antimullerian hormone (AMH) Lab Routine Female infertility associated with anovulation Personal history of other diseases of the female genital tract Expected: 12/18/2023, Expires: 12/18/2024 [facility] Work Phone: comment on above:Expected: 12/18/2023, Expires: 12/18/2024Start: 98-68-6251Caldsjx ScreeningTobacco ScreeningProCleveland Clinic [facility] SystemStart: 12-30-1142Nscmkhjly vaccinationInfluenza VaccineGalion Community Hospital SystemStart: 08-07-2022 End: 42-36-5663Frzpxli encounter ternrfojy45/11/2022 Office Visit Bariatrics Dottie Diaz, [employer]EL[employer] - TRAINING DEVELOPMENT SPECIALIST [address] [place] [address] Linda Guadalupe Invasive Bariatric Surg Start: 07-12-2022 End: 18-03-1572Fdlfnbl encounter snuxntugx05/15/2022 Office Visit Bariatrics Bret Wetzel DO [address] [place] [address] Linda Guadalupe Invasive Bariatric SurgStart: 91-55-5913Dumxfhxea vaccinationFlu vaccine (#1)[facility]Start: 07-00-4470OZG Vaccines (1 - 3-dose SCDM series)HPV Vaccines (1 - 3-dose SCDM series)[facility] HealthcareStart: 17-99-4084Jxbhtxtqu for malignant neoplasm of cervixPap smearCLINCH VALLEY MEDICAL CENTERStart: 28-29-9439TOdU,Tdap and Td Vaccines (1 - Tdap)DTaP,Tdap and Td Vaccines (1 - Tdap)[facility] Start: 78-09-3787XAbM/Tdap/Td vaccine (1 - Tdap)DTaP/Tdap/Td vaccine (1 - Tdap) [facility]Start: 40-61-5186Bwhosbzre B Vaccines (1 of 3 - 19+ 3- dose series)Hepatitis B Vaccines (1 of 3 - 19+ 3-dose series)[facility] Start: 35-95-7308Ookdx BMI Follow Up PlanAdult BMI Follow Up PlanProC[facility] Clinic [facility] SystemStart: 18-06-4426Xzgztuhlj C screeningHepatitis C screenBON [facility]AMS [facility]ENTERStart: 02-41-3674RSD screeningHIV [facility] Start: 30-34-4926Vnzphfr of varicella vaccinationVaricella Vaccines (1 of 2 - 13+ 2-dose series)[facility] HealthcareStart: 12-67-8670Gaddcrqqnw ScreenDepression ScreenBON [facility]AMS COUNTY [facility] MED[facility]ENTERStart: 04-41-3354Vqyarliryn ScreeningDepression ScreeningProC[facility] Clinic [facility] SystemStart: 88-12-7730RYsM,Tdap and Td Vaccines (6 - Tdap)DTaP,Tdap and Td Vaccines (6 - Tdap)[facility] SystemStart: 92-87-3485OOaD/Tdap/Td Vaccines (1 - Tdap)DTaP/Tdap/Td Vaccines (1 - Tdap)[facility] HealthcareStart: 43-04-0676OIR Vaccines (1 of 1 - Standard series)MMR Vaccines (1 of 1 - Standard series)[facility] HealthcareStart: 82-24-3914Gruetdhei vaccine (1 of 2 - 2-dose childhood series)Varicella vaccine (1 of 2 - 2-dose childhood series)[facility]ENTERStart: 50-35-0891NBOVO-19 Vaccine (#1)COVID-19 Vaccine (#1)[facility] CENTERAMYDIA TRACHOMATIS (GENITO/STI)CHLAMYDIA TRACHOMATIS (GENITO/STI) Lab Routine Exposure to STD Ordered: 08/03/2024[facility] HealthcareComment on above:Ordered: 08/03/2024ontinuous pulse oximetryPulse oximetry, continuous Respiratory Care Routine Every 4hr until discontinued starting 07/03/2022[facility] Work Phone: comment on above:Every 4hr until discontinued starting 07/03/2022Neisseria gonorrhoeae DNA [Presence] in Unspecified specimen by NEGRITO with probe detectionNeisseria gonorrhea DNA probe, direct Lab Routine Exposure to STD Ordered: 08/03/2024[facility] CenterComment on above:Ordered: 08/03/2024 Oxygen therapy [Minimum Data Set]Initiate Oxygen Therapy Protocol Respiratory Care Routine As Needed until discontinued starting 07/03/2022[facility]OSPITALBoardwalktech Phone: comment on above:As Needed until discontinued starting 07/03/2022pirometry panelIncentive spirometry Respiratory Care Routine Every 2hr while awake until discontinued starting 07/03/2022[facility]OSPITALBoardwalktech Phone: comment on above:Every 2hr while awake until discontinued starting 07/03/2022URESWAB(R) ADVANCED VAGINITIS PLUS, TMA SURESWAB(R) ADVANCED VAGINITIS PLUS, TMA Pathology and Cytology Routine Exposure to STD Ordered: 08/03/2024[facility] HealthcareComment on above:Ordered: 08/03/2024 Surgical PathologySurgical Pathology Lab Routine Obesity, unspecified classification, unspecified obesity type, unspecified whether serious comorbidity present Gastroesophageal reflux disease, unspecified whether esoph agitis present Release Upon Ordering for 1 Occurrences starting 07/03/2022 [employer] Phone: comment on above:Release Upon Ordering for 1 Occurrences starting 07/03/2022 End: 35-93-7127NNFYETNV PATHOLOGY REPORTSURGICAL PATHOLOGY REPORT Lab Routine Once for 1 Occurrences starting 07/03/2022 until 07/03/2022 [employer] Phone: comment on above:Once for 1 Occurrences starting 07/03/2022 until 07/03/2022Thyrotropin [Units/volume] in Serum or PlasmaTSH Lab Routine 08/15/2024 9:17 AM [facility] Work Phone: Immunizations Immunization DateImmunizationNotesBeebe Medical Center AlizkpgjWgkzxyeo17-20-1115TRZ(D) immune globulin- IV or IMCorey Fe DO Work Phone: pHealthvest Craig RanchBdktai26-53-8102dmfrexomx virus vaccine, unspecified formulationCorey Fe DO Work Phone: pTeche Regional [facility] CenterTHEMA [facility] Payers DatePayer CategoryPayerPolicy [id number]-pay2023Medicaid [id number] [id number] [id number] 2019Medicaid [id number] [id number] [id number] 1993 [id number] 2.840.1.501300.3.57[id number] 2.840.1.169578.3.57[id number] 2.840.1.009454.3.57[id number] 2.0.1.685311.3.57[id number] 2..1.236598.3.57[id number] 2.0.1.683721.3.57[id number] 2.0.1.368604.3.579.[id number] 2..1.206250.3.57[id number] 2..1.190757.3.579.2.[id number] 2..1.155674.3.57[id number] 2..1.083681.3.579.2.363850-38-2085Vvvfqyy53489858 2.0.1.451356.3.579.2.0[id number] 2.0.1.289819.3.579.2.996590-00-4913Htmpwll23595567 2.840.1.163530.3.579.2.826242-80-2052Evacglg87795010 2.840.1.492370.3.579.2.[id number] 2.0.1.294664.3.579.2.[id number] 2.0.1.660800.3.579.2.246852-92-2598Ucnllwh33449364 2..1.344557.3.579.2.986886-80-3118Fffglqq33411815 2..1.030338.3.579.2.979817-62-7873Xwwuzsz30404422 2..1.194451.3.579.2.479751-29-0008Zuekams6993795 2..1.211592.3.579.[id number] 2..1.965870.3.579.2.236190-57-5157Akeukhd60126180 2..1.355290.3.579.2.996675-69-5928Ubyhsvi12666378 2..1.762018.3.579.2.2[id number] 2..1.621749.3.579.2.502596-66-5635Xdahuhu9304682 2..1.001922.3.579.2.512386-45-3179Blyndtc9761960 2..1.229949.3.579.2.833989-98-6630Kqurnag0853771 2..1.493638.3.579.2.546540-05-2201Spmrfxm4187664 2..1.456205.3.579.2.598397-46-0553Qicilur0595686 2..1.001205.3.579.2.879732-69-6509Vcrkpky3923272 2.0.1.221412.3.579.2.647023-53-4977Znsijog0332976 2.0.1.687581.3.579.2.848091-84-9009Saghhrt0013617 2.0.1.106749.3.579.2.917660-96-2157Xeozqoa9395852 2.0.1.095864.3.579.2.286060-16-9999Mwlylnd5248264 2.0.1.588925.3.579.2.579200-55-8365Djfznoa4193783 2.0.1.254579.3.579.2.9UnknownMMO Netk [id number] df3crx7q-sq95-5dd8-1340-kl70p3648f2pBpsdcts06785156 2..1.774963.3.579.2.531 Social History DateTypeDetailFacilityStart: 06-15-2022 End: 22-45-5405Xipcusp smoking status NHISNever smoked tobaccoSAINT JOHN'S HOSPITALGeneral AtomicsStart: 06-15-2022 End: 43-09-6183Glnjfsa use and exposureSmokeless tobacco non-userSAINT JOHN'S HOSPITALStackdriver Phone: start: 07-04-2022 End: 53-61-4892Eostxqv intakeCurrent drinker of alcohol (finding)[facility] HOSPITALStackdriver Phone: start: 67-13-1007Whluezb SDOH Alcohol CommentoccSAINT JOHN'S HOSPITALStackdriver Phone: start: 12-33-2978Pfz Assigned At BirthNot on [facility] Memorial HospitalStackdriver Phone: start: 06-08-2022 End: 39-44-7796Rugrhbnl to SARS-CoV-2 (event)Not sureBON ADAMS COUNTY REG[facility]AL [facility]ENTER Work Phone: start: 07-30-2024 End: 67-53-2818Lbfkcctyv beverage intakeEx-drinker (finding)[facility] Start: 06-12-2024 End: 81-85-7092Kyhjxjt of Social functionNOMS HealthcareStart: 06-12-2024 End: 94-14-2967Ikwwuiu use panelNOAL HealthcareStart: 78-41-1040Egkjkyj Comment occasionalNOAL HealthcareStart: 15-11-0470KhxcwiicoFNQL HealthcareStart: 63-92-6126ZkjcwjzsuNbxkvavBnkXpbkcg Health SystemStart: 63-98-0393Qewgxat CommentoccassButler Memorial Hospital SystemStart: 25-28-5275KcvLxeyvo (finding) [facility] SystemTobacco smoking status NHISUnknown if ever smoked [facility] Work Phone: Start: 61-92-3075Krg Assigned At [facility] Medical Equipment Procedure CodeEquipment CodeEquipment Original TextEquipment IdentifierDates1 strip by In Vitro route Daily Use in the morning prior to breakfast, 1 hour after each meal for atotal of 4times daily.[id number]: 09-29-2024 End: each by In Vitro route Daily Use to check FSBS four times daily [id number]: 09-29-2024 End: 15-78-5515QUF 1 EACH TO CHECK GLUCOSE 4 TIMES [id number]: 09-30-2024 End: 11-04-2024 Clinical Notes 02-24-2021 to 08-18-2025 Note Date & [id number] NoteSubjective Patient ID: Phillip Noriega is a 30 y.o. female who presents for New Patient (Patient is here today to establish care as a new patient. Patient complains of being lightheaded/dizziness, tunnel vision, feeling flushed, legs feel heavy at times when standing/walking), Hypertension, Dizziness (Dizziness/lightheaded), and Palpitations. Seen by a neurologist for drooping eye. MRI was done and was OK. Having black out issues since 17 yo. Worse since having child 7 months ago. Feels like heavy legs when it comes on Can be standing, gets flushed, diaphoretic, and gets tunnel vision. Several months ago happened and persisted. Happened first on a roller coaster when it dropped. Can happen with bad relationship. Can be with strenuous activity Had gastric sleeve in 2020 Had positive ROSA ELENA at age of 17 yo Mother and father tall, no history of aneurysms Hypertension Associated symptoms include palpitations. Dizziness Palpitations Associated symptoms include dizziness. Review of Systems Cardiovascular: Positive for palpitations. Gastrointestinal: Negative for blood in stool. Genitourinary: Negative for hematuria. Neurological: Positive for dizziness and syncope. Negative for seizures. Objective Visit Vitals BP 106/70 (BP Location: Right arm, Patient Position: Standing) Pulse 78 Physical Exam Constitutional: Appearance: Normal appearance. She is normal weight. HENT: Head: Normocephalic and atraumatic. Cardiovascular: Rate and Rhythm: Normal rate and regular rhythm. Pulses: Carotid pulses are 2+ on the right side and 2+ on the left side. Radial pulses are 2+ on the right side and 2+ on the left side. Heart sounds: Normal heart sounds. Heart sounds not distant. No murmur heard. No friction rub. No gallop. Comments: Hyperflexible joints Pulmonary: Effort: Pulmonary effort is normal. Breath sounds: Normal breath sounds. Musculoskeletal: Right lower leg: No edema. Left lower leg: No edema. Comments: Elbows can extend beyond 90 degrees 5' 10 Skin: General: Skin is warm and dry. Comments: vitiligo Neurological: General: No focal deficit present. Mental Status: She is alert and oriented to person, place, and time. Mental status is at baseline. Assessment/Plan Has classic vasovagal syncope occurring frequently. Given flexible joints and height, Ehler Danlos is a possibility. Plan: Tilt table test ROSA ELENA (was positive when 17 years old) Trial of midodrine Diagnosis Plan 1. Vasovagal syncope midodrine (Proamatine) 5 mg tablet Follow up in about 6 weeks (around 09/29/2025).[place] [id number] History of Present illness Narrative* Marlys Awad, PROJECT CONTROLS SCHEDULER - 07/15/2025 8:10 AM EDT Reason for Appointment: Patient ID: Phillip Noriega is a 30 y.o. female who presents for No chief complaint on file. Patient presents today via telephone call for a telehealth appointment. Patients Phone #: [phone] (mobile) Date: 07/15/2025 Time: 11:14 AM of the visit Platform Used: Audio call performed via in house telephone system. Location of Patient and Provider: Patient at home, provider at clinic Consent for Telehealth: Patient provided verbal consent to conduct the visit virtually via audio only phone call Current Medications: has a current medication list which includes the following prescription(s): bupropion xl, omeprazole, omeprazole, and venlafaxine xr. Medical History: Active Ambulatory Problems Diagnosis Date Noted Positive blood test ([facility]) 04/27/2024 Missed menses 05/05/2024 Encounter for insertion of Mirena IUD 03/31/2025 Resolved Ambulatory Problems Diagnosis Date Noted No Resolved Ambulatory Problems Past Medical History: Diagnosis Date Anxiety Depression Desire for History of miscarriage Obesity (BMI 30-39.9) Pityriasis alba Thyrotoxicosis, unspecified without thyrotoxic crisis or storm Family History Problem Relation Name Age of Onset Multiple sclerosis Mother Diabetes Maternal Grandmother G Hypertension Maternal Grandmother G Heart disease Maternal Grandmother G Social History Tobacco Use Smoking status: Never Smokeless tobacco: Never Substance Use Topics Alcohol use: Not Currently Comment: occasional Drug use: Never No past surgical history on file. Allergies Allergen Reactions Latex Itching and Rash Other Reaction(s): Unknown Sulfamethoxazole-Trimethoprim Hives Other Reaction(s): Unknown Hives to face Hives to face Vitals: Estimated body mass index is 22.18 kg/m as calculated from the following: Height as of 07/01/25: 5' 11 . Weight as of 07/01/25: 159 lb. BP: No LMP recorded. (Menstrual status: IUD). Assessment/Plan Encounter Diagnoses Name Primary? Post depression anxiety ([facility]) Provider called patient to inquire how medication is helping. Patient voiced that she has not started medication at this time, due to talking with other mom's and she is not sure if this is just tough time in her life and maybe more situational than mental. Patient voiced that she was seen in theER due to some facial drooping and is being referred to Neurologist and possible MRI. Patient will think about starting medication to see if it helps at all, but may decide to wait until after her finds out what is going on Neurologically. Patient to reach back out to office if she starts medication and would desire to stop medication. Patient advised that she would need to ween off medication. Today's telehealth visit consisted of spending 10 minutes talking to patient on the phone. Documented by Marlys Awad LPN on behalf of: Jake Miramontes DO documented in this encounterParkland Health [id number] History of Present illness Narrative* Joey Jama, CATERINA - 07/01/2025 1:10 PM EDT Reason for Appointment: Patient ID: Phillip Noriega [...] Problems Diagnosis Date Noted Positive blood test ([facility]) 04/27/2024 Missed menses 05/05/2024 Encounter for insertion [...] nursing note reviewed. Exam conducted with a distance learning administrator present. Vitals: Estimated body mass index is 23.54 kg/m as calculated from the following: Height as of 03/13/23: 5' 11 . Weight as of 03/31/25: 168 lb 12.8 oz. BP: No LMP recorded. ASSESSMENT & PLAN ICD-10-CM 1. 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 anxiety ([facility]) O99.345 F41.8 3. Intrauterine device surveillance Z30.431 [...] harming her baby. Pt would also like NEONATAL SURGEON Joey Jama to make sure strings are ok w/IUD and she has noticed her periods tapering down and more ophthalmic medical technician. Pt had the IUD Mirena inserted on [...] of: Joey Jama NP documented in this encounterParkland Health [id number] History of Present illness Narrative* Tamy Collazo LPN - 03/31/2025 2:30 PM EDTAssociated Order(s): IUD Insertion Post-Procedure Diagnose(s): Encounter for [...] Past Medical History: Diagnosis Date Anxiety Depression ([facility]) Desire for History of miscarriage Obesity (BMI [...] nursing note reviewed. Exam conducted with a distance learning administrator present. Vitals: Estimated body mass index is [...] by patient, parent, or legal power of film spooler - including discussion of procedurerisks and benefits, patient questions answered, and patient [...] cut to the length from external os. Allinstruments were removed from the vagina. Post-procedure instructions given. All of patients questions were answered and she expressed understanding. Advised to call interim with any questions or concerns. Follow Up: Patient is to return to the office in 4 weeks for a string check. Documented by Tamy Collazo LPN on behalf of: Jake Miramontes DO documented in this encounterParkland Health CenterHqeiktxknm84-47-2457 History of Present illness Narrative* Tamy Collazo LPN - 03/09/2025 1:00 PM EDT Reason for Appointment: Patient ID: Phillip Noriega is a 30 y.o. female who presents for Pre-op Visit Patient presents today for Pre Op appointment. Patient is scheduled to undergo Da Eric assisted Bilateral Laparoscopic Salpingectomy and Mirena IUD Insertion on 04/02/[address] Miramontes at [facility]. MEDICATIONS Current Outpatient Medications Medication Instructions [...] nursing note reviewed. Exam conducted with a distance learning administrator present. Vitals: Estimated body mass index is [...] of: Jake Miramontes DO documented in this encounterParkland Health CenterIqlvlrcafy80-47-4948 History of Present illness Narrative* Marlys Awad LPN - 02/11/2025 11:00 AM EDT Reason for Appointment: Patient ID: Phillip Noriega [...] nursing note reviewed. Exam conducted with a distance learning administrator present. Vitals: Estimated body mass index is [...] forms of control as patient and spouse arenot sure if they are done childbearing at this time. Pamphlets given to patient and patient will reach out to office once her and spouse decide what form of control they decide. Follow Up: Patient is to return for annual unless needed otherwise. Documented by Marlys Awad LPN on behalf of: Jake Miramontes DO documented in this encounterParkland Health [id number] History of Present illness Narrative* Tamy Collazo LPN - 12/23/2024 11:30 AM EST Reason for Appointment: Patient ID: Phillip [...] nursing note reviewed. Exam conducted with a distance learning administrator present. Vitals: Estimated body mass index is [...] of: Jake Miramontes DO documented in this encounterParkland Health CenterTrcheimnyx57-71-3318 History of Present illness Narrative* Tamy Collazo LPN - 12/02/2024 10:50 AM EST Reason for Appointment: Patient ID: Phillip [...] nursing note reviewed. Exam conducted with a distance learning administrator present. Vitals: Estimated body mass index is [...] of: Jake Miramontes DO documented in this encounterParkland Health CenterVfgvjjijgh95-87-7021 History of Present illness Narrative* Ronaldo Diaz, MD - 11/20/2024 10:00 AM EST REASON FOR CONSULTATION: Suspected ventriculomegaly HISTORY OF PRESENT ILLNESS: Phillip Noriega is a pleasant 29 y.o. G two P0 010. at 32w4d due on Estimated Date of Delivery: 01/11/25 . Patient was seen today due to the following 1. Maternal gastric sleeve procedure. Patient had robotic gastric sleeve procedure performed at [facility]. Patient has lost weight. Patient became after [...] positions with working out or riding roller Mtimeers Visual impairment wears glasses PAST OBSTETRICAL HISTORY: OB History 2 Para 0 Term AB 1 Living SAB 1 IAB Ectopic Multiple Live Births SURGICAL HISTORY: Past Surgical History: Procedure Laterality Date CHOLECYSTECTOMY COLONOSCOPY N/A 11/13/2018 Performed by Emanuel Reagan DO at [facility] EGD N/A 11/13/2018 Performed by Emanuel Reagan DO at [facility] LAPAROSCOPIC GASTRIC BANDING ALLERGIES: Allergies Allergen Reactions [...] taking: Reported on 11/01/2023), Disp: , Rfl: mtelhqiy-wnvv-TP-calcium &mins (THERAGRAN-M) 9 mg iron-400 mcg tablet, [...] and the other consultants, we search on [employer] and all the available care everywhere epic I did review all the imaging studies of the patient available on EMR, ordered by the primary care physician and the other mgmt consultant HABITS: Patient activity no restrictions, diet [...] Gravid abdomen, Respirations not labored. Well oriented timeplace person, normal gait MEDICAL DECISION MAKING DISCUSSION: [...] 4 weeks at Ms. Muñoz's office and acomprehensive metabolic profile along with a CBC around [...] patient is in complete care of her report manager. Patient does not have any future appointment scheduled with us. Thank you for allowing me to participate in Phillip Noriega . If there any questions please do nothesitate to contact us. Sincerely, RONALDO MCNULTY MD * Mikala Raza RN - 11/20/2024 10:00 AM EST Headache/epigastric pain/blurry vision/swelling? No Cramping/contractions? Som Asif [...] No Have you been seen here at [facility] in a previous ? No Recent ER visits or hospitalizations? No Bring blood sugar log or meter with you today? (Please bring them with you for every visit at [facility]) N/A Flu vaccine (Aug-December)? No Any concerns that you would like me to mention to the provider today? No documented in this encounterHenry County HospitalClout Sturgis HospitalTukzou95-52-2890 History of Present illness Narrative* Tamy Collazo LPN - 11/18/2024 3:00 PM EST Reason for Appointment: Patient ID: [...] nursing note reviewed. Exam conducted with a distance learning administrator present. Vitals: Estimated body mass index is 27.06 kg/m as calculated from the following: Height as of 23: 5' 11 . Weight as of this [...] of: Jake Miramontes DO documented in this encounterParkland Health CenterYovpchowxy10-53-4946 History of Present illness Narrative* Tamy Collazo LPN - 11/04/2024 2:30 PM EST Reason for Appointment: Patient ID: [...] nursing note reviewed. Exam conducted with a distance learning administrator present. Vitals: Estimated body mass index is [...] of: Jake Miramontes DO documented in this encounterParkland Health CenterQwacdfoefi68-87-9414 History of Present illness Narrative* Tamy Collazo LPN - 10/22/2024 10:50 AM EST Reason for Appointment: Patient ID: Phillip Noriega is a 29 y.o. female who presents for No chief complaint on file. Patient presents today for Return OB appointment. MEDICATIONS Current Outpatient Medications Medication Instructions Alcohol Swabs (Alcohol Prep Pad) 70 % pads 1 Pad, Topical, Daily, Use four times daily to check FSBS. Blood Glucose Monitoring Suppl (D-[place] Glucometer) w/Device kit 1 kit, Does not [...] nursing note reviewed. Exam conducted with a distance learning administrator present. Vitals: Estimated body mass index is [...] day. Reviewed glucose log with pt in detail.Pt has MFM appt on 11/02/24. Orders Placed This Encounter Procedures POCT urinalysis dipstick manually resulted Follow Up: Patient is to return to office in 2 week for routine OB appointment. Documented by Tamy Collazo LPN on behalf of: Jake Miramontes DO documented in this [facility]12-19-2024 Miscellaneous Notes* Result Encounter Note - Althea Esparza LPN - 10/15/2024 4:16 PM EST Sent! documented in this [facility]12-19-2024 Progress note* Result Encounter Note - Althea Esparza LPN - 10/15/2024 4:16 PM EST Sent! [facility] Health CenterMgcxjyyzel53-84-9105 History of Present illness Narrative* Tamy Collazo LPN - 09/29/2024 9:10 AM EST Reason for Appointment: Patient ID: Phillip [...] nursing note reviewed. Exam conducted with a distance learning administrator present. Vitals: Estimated body mass index is [...] of: Jake Miramontes DO documented in this encounterParkland Health CenterBodjdtkmfy74-80-2548 History of Present illness Narrative* Tamy Collazo LPN - 09/01/2024 11:40 AM EST Reason for Appointment: Patient ID: Phillip [...] nursing note reviewed. Exam conducted with a distance learning administrator present. Vitals: Estimated body mass index is [...] of: Jake Miramontes DO documented in this encounterParkland Health CenterPamrxccgyy37-78-7195 History of Present illness Narrative* MORA Jackson - 08/03/2024 8:40 AM EDT Reason for Appointment: Patient ID: Phillip Noriega [...] nursing note reviewed. Exam conducted with a distance learning administrator present. Vitals: Estimated body mass index is [...] no issues at this time. Pt was givenher 20 week anatomy US to have scheduled, MSAFP order to have drawn at the lab and her [facility] to [facility] by 08/15/2024. Pt was seen by Katherine Bridges heart tones were done and Ipad US was administered by Katherine Bridges at today's visit. Pt had no questions over the orders. Pt to return back in 4 weeks for her next OB visit. Documented by Glenda Cristina MA on behalf of: MORA Jackson documented in this encounterParkland Health CenterNmiqopwpbw78-75-1984 History of Present illness Narrative* Tamy Collazo, PROJECT CONTROLS SCHEDULER - 07/07/2024 9:20 AM EDT Reason for Appointment: Patient ID: Phillip Noriega [...] nursing note reviewed. Exam conducted with a distance learning administrator present. Vitals: Estimated body mass index is [...] rx for omeprazole faxed to pharmacy. Expectations throughoutpregnancy regarding labs, ultrasounds, and appointments have been discussed with the patient in detail. It was reiterated that the patient is to drink 6-8 glasses of water a day, eat 6 small meals a day, do not consume raw or undercooked meat, and stay away from [facility]. Patient has been consulted regarding any further do's and don'ts of . Patient voiced understanding and all questions and concerns were answered. Orders Placed This Encounter Procedures POCT urinalysis dipstick manually resulted Follow Up: Patient is to return in 4 weeks for routine OB appointment. Documented by Tamy Collazo LPN on behalf of: Jake Miramontes DO documented in this encounterParkland Health CenterNgzemtheda06-82-9284 History of Present illness Narrative* Donna Trammell RN - 07/04/2022 3:00 PM EDT Patient discharged with all of her belongings. * Donna Trammell RN - 07/04/2022 2:41 PM EDT Patient given discharge paperwork and all questions. Patient waiting for ride. * Tex Rushing RN - 07/04/2022 10:21 AM EDT Discussed bariatric discharge instructions with patient, allowed time for questions, had patient demonstrate IS, lovenox teaching done and patient voices understanding * Garrett Corcoran DO - 07/04/2022 7:07 AM EDT Bariatric surgery: Daily Progress Note s/p robotic [...] 16 Ht 5' 10 (1.778 m) Wt 266lb (120.7 kg) LMP 06/18/2022 Comment: neg hcg [...] incentive spirometry DC planning: Today versus tomorrow * Luis Dorsey RN - 06/20/2022 9:50 AM EDT Medical clearance on chart for or 07/03/[address] [address] [employer] Work Phone: 1([phone]) 987-532509-07-2022 Hospital Discharge instructions* Discharge Instructions* Garrett Corcoran DO - 07/04/2022 8:07 AM EDT Discharge Instructions for Bariatric Surgery You had a Laparoscopic Sleeve Gastrectomy (50651) surgery to treat obesity. Recovery from this [...] for two weeks. Dehydration and changes in bowelhabits can occur after surgery. Refer to your [...] to work. You may need to wait 2- [address] you are no longer using pain medications Do not lift anything over ten pounds for 4 weeks. Medications Remember to avoid aspirin, aspirin-containing products, and nonsteroidal anti- inflammatory drugs (NSAIDs, such as ibuprofen, naproxen, etc.). If you were taking these medications before the procedure, and had to stop, ask your doctor when you can resume taking them. Be sure to review your medications with your primary care provider at yourfollow up office visit. Lifestyle Changes Changing your [...] scheduled appointment, please call the office at [phone]. Call Your Doctor If Any of the [...] emergency, call 911 immediately. documented in this encounterBON SHERMAN OAK[facility]OSP[facility] AND [facility] CENTERChristiana Care [facility] Systems Work Phone: 1(798) 375-146504-30-2021 NoteChief Complaint Referral for bloating, weight gain, and occasional loose stools with blood, but no blood with normal bowel movements, possible celiac, onset after starting depo shots History of Present Illness This is a 26-year-old female that comes to us today complaining of abdominal pain bloating greasy stools without stomach or ulcers or rectal pain. She states she had a colonoscopy performed in [facility] in 2018 as well as EGD and some sort of GI work-up. She is unsure exactly what the work-up entailed although she does tell me she came back positive for celiac. She states at that time theyinformed her when she had her EGD done that it was extremely inflamed and put her on a pill although she is unsure exactly what it was. She says that she does have quite a bit of coughing she says itsounds almost like a smoker's cough. She does not wake up during the nighttime with symptoms. She has had no vomiting no hematemesis no coffee-ground emesis however she does have quite a bit of nausea. She does not follow a gluten-free diet. She says it is very expensive and is difficult to follow.However currently she wants to see if she [...] period. She feels that when she was onthe Depo shot this contributed to part of her issues she had excruciating pain much more frequentlythan she does now after stopping Depo shot. [...] are mucoid-like in nature N/V/blood/frequency: Positive nausea Woods Score: Typically she rates it for although up to 6 with blood MELD Score: [place] IV Score: Previous Labs: She states last blood work was done in 2017 [place] although I currently do not have the [...] exposed areas. Neurologic: Awake, (more content not included)...[facility] Evaluation note* Diagnosis S/P laparoscopic sleeve gastrectomy- Primary Obesity, unspecified classification, unspecified obesity type, unspecified whether serious comorbidity present Gastroesophageal reflux disease, unspecified whether esophagitis present documented in this encounter [facility] [employer] Phone: evaluation note* Diagnosis Well woman exam [...] gastric sleeve- Primary [facility]* Diagnosis Third trimester state, [...] female genital tract documented [facility]* Diagnosis Hypothyroidism, unspecified documented [facility]* Diagnosis Third trimester state, incidental 36 weeks gestation of Excessive growth affecting management of , antepartum, single or unspecified fetus [facility] Diagnosis 37 weeks gestation of Third trimester state, incidental [facility]* Diagnosis 6 weeks follow-up documented [facility]* Diagnosis Pre-operative exam Unspecified pre-operative examination Request for sterilization Menorrhagia with regular cycle [facility]* Diagnosis Encounter for insertion of Mirena IUD documented in this encounter [facility]* Diagnosis Mood changes- Primary Unspecified episodic mood disorder Post depression Mental disorders of mother, complicating , childbirth, or the puerperium, unspecified as to episode of care anxiety ([facility]) Intrauterine device surveillance documented in this encounter [facility]* Diagnosis Post depression Mental disorders of mother, complicating , childbirth, or the puerperium, unspecified as to episode of care anxiety ([facility]) documented in this encounter [facility] HealthcareEvaluation noteNo assessment information availablePremier Health [facility] Work Phone: History of Present illness Narrative* Tamy Collazo, LC - 12/16/2024 1:00 PM EST Reason for [...] nursing note reviewed. Exam conducted with a distance learning administrator present. Vitals: Estimated body mass index is [...] Miramontes DO documented in this encounterNOSaint John's HospitalInstructionsNot on filedocumented in this encounterProMediwy Health SystemInstructionsNot on filedocumented in this encounterProCleveland Clinic [facility] SystemInstructionsNot on filedocumented in this encounterProWoodland Medical Center Health SystemReason for referral (narrative)No reason for referral information availableMartin Memorial Hospital Ctr Work Phone: Summary Purpose Family History No Family History Records FoundNo Family History Records FoundNo Family History Records FoundNo Family History Records FoundNo Family History Records FoundNo Family History Records FoundNo Family History Records FoundNo Family History Records FoundNo Family History Records Found Advance Directives Code StatusDate ActivatedDate InactivatedCommentsFull Code07/03/2022 5:43 PM Advance Directive Response Recorded Date/ Time Advance Directives No June 11:58am Chief Complaint and Reason for Visit Chief Complaint Admit Date R20.0 August 03, 2025 7: 04am Additional Source Comments INFORMATION SOURCE (unrecogn ized section and content) DATE CREATED AUTHOR 02/28/2021 [facility] DATE CREATED AUTHOR AUTHOR'S ORGANIZ ATION 04/27/2021 [facility] DATE CREATED AUTHOR AUTHOR'S ORGANIZ ATION 03/14/2023 [facility] DATE CREATED AUTHOR AUTHOR'S ORGANIZ ATION 11/29/2023 [facility] DATE CREATED AUTHOR AUTHOR'S ORGANIZ ATION 11/14/2024 [facility] DATE CREATED AUTHOR AUTHOR'S ORGANIZ ATION 07/17/2025 [facility] DATE CREATED AUTHOR AUTHOR'S ORGANIZ ATION 07/17/2025 [facility] DATE CREATED AUTHOR AUTHOR'S ORGANIZ ATION 08/08/2025 [facility] DATE CREATED AUTHOR AUTHOR'S ORGANIZ ATION 08/20/2025 [facility] Reason for Visit (unrecogniz ed section and content) SpecialtyDiagnoses / ProceduresReferred By ContactReferred To Contact Diagnoses Obesity, unspecified classification, unspecified obesity type, unspecified whether serious comorbidity present Gastroesophageal reflux disease, unspecified whether esophagitis present OBESITY, GERD Procedures IN LAP, MEHUL RESTRICT PROC, LONGITUDINAL GASTRECTOMY XI ROBOTIC LAPAROSCOPIC GASTRECTOMY SLEEVE, EGD, LIVER BIOPSY - GI SCHEDULED Bret Wetzel DO [address] [facility] [address] [place] [address] [facility] [address] [place] [address] Referral IDStatusReasonStart DateExpiration DateVisits RequestedVisits [id number] VisitReasonCommentsRoutine VisitReasonCommentsProminent Lateral WvegucorxxKadwsoAhtpdqyb3dx Post PartumReasonCommentsPre-op VisitReasonCommentsIUD insertionReasonComments DepressionPt present today for post depression/anxiety and a IUD string check. Ordered Prescriptions (unrec ognized section and content) PrescriptionSigDispensedRefillsStart DateEnd Date enoxaparin (LOVENOX) 40 MG/0.4ML Inject 0.4 mLs into the skin 2 times daily for 14 days 11.2 mL / cyclobenzaprine (FLEXERIL) 10 MG tablet Take 1 tablet by mouth 3 times daily as needed for Muscle spasms 28 tablet / promethazine (PHENERGAN) 25 MG tablet Take 1 tablet by mouth every 6 hours as needed for Nausea 28 tablet / oxyCODONE-acetaminophen (PERCOCET) 5-325 MG per tablet Indications:S/P laparoscopic sleeve gastrectomyTake 1 tablet by mouth every 6 hours as needed for Pain for up to 7 days. 28 tablet / Scheduled Active and Recently Administ ered Medications (unrecognized section and content) Medication Order/ aprepitant (EMEND) capsule 80 mg (COMPLETED) 80 mg, Oral, ONCE, 1 dose, On Sat07/04/22 at 1145 * 1213 (Given - Provider: Donna Trammell, SUZANNE) ceFAZolin (ANCEF) 2000 mg in sterile water 20 mL IV syringe (COMPLETED) 2,000 mg, IntraVENous, EVERY 8 HOURS, 2 doses, First dose on Sat07/03/22 at 2100, Last dose on Sat07/04/22 at 0500, Antimicrobial Indications: Surgical Prophylaxis, Administer over 5 mins. * 2115 (Given - Provider: Chichi Kwong RN) * 0509 (Given - Provider: Chichi Kwong RN) ceFAZolin (ANCEF) 3000 mg in sterile water 30 mL IV syringe (COMPLETED) 3,000 mg, IntraVENous, ONCE, 1 dose, On Sat07/03/22 at 1000, Antimicrobial Indications: Surgical Prophylaxis, Administer over 5 mins., Pre-op (day of surgery) * 1337 (Given - Provider: Robert Cobb APRN - SALOON KEEPER) heparin (porcine) injection 5,000 Units (COMPLETED) 5,000 Units, SubCUTAneous, ONCE, 1 dose, On Sat07/03/22 at 1000, Pre-op (day of surgery) * 1009 (Given - Provider: Bandar Burns RN) heparin (porcine) injection 5,000 Units 5,000 Units, SubCUTAneous, EVERY 8 HOURS SCHEDULED (3 times per day), First dose on Sat07/03/22 at 1630, Until Discontinued * 1750 (Not Given - Provider: Gypsy Stoner RN - Reason: Other - Comment: per OR) * 2200 (Given - Provider: Chichi Kwong RN) * 0607 (Given - Provider: Chichi Kwong RN) * 1435 (Given - Provider: Donna Trammell RN) * 2200 (Due) ipratropium-albuterol (DUONEB) nebulizer solution 1 ampule 1 ampule, Inhalation, EVERY 6 HOURS WHILE AWAKE, First dose on Sat07/03/22 at 1630, Until Discontinued, Initiate RT Bronchodilator Protocol: Yes - Inpatient Protocol, q6 hours and PRN * 1630 (Due) * 1939 (Given - Provider: Luh Coffey RCP) * 0930 (Given - Provider: Bandar Hernandez) * 1500 (Not Given - Provider: Adi Bernal RCP - Reason: Patient/family refused) * 2000 (Due) ketorolac (TORADOL) injection 15 mg (COMPLETED) [...] not administer for more than 5 days. * 1213 (Given - Provider: Donna Trammell, SUZANNE) midazolam PF (VERSED) injection 2 mg (COMPLETED) 2 mg, IntraVENous, ONCE, 1 dose, On Sat07/03/22 at 1015 * 1111 (Given - Provider: Bandar Burns, SUZANNE) pantoprazole (PROTONIX) tablet 40 mg 40 mg, Oral, DAILY, First dose on Sat07/03/22 at 1800, Until Discontinued, Do not crush or break., Post-op * 1820 (Given - Provider: Gypsy Stoner RN) * 0836 (Given - Provider: Donna Trammell, SUZANNE) scopolamine (TRANSDERM-SCOP) transdermal patch 1 patch 1 patch, TransDERmal, Administer over 72 Hours, ONCE, On Sat07/03/22 at 1015, For 1 dose, Apply patch to hairless area behind the ear. * 1012 (Patch Applied - Provider: Bandar Burns [...] per day), First dose on Sat07/03/22 at 2100,Until Discontinued, For Line Patency: Peripheral IV = [...] or Central Line = 20 mL/lumen, Post-op * 2124 (Not Given - Provider: Chichi Kwong RN - Reason: IV Fluid Infusing) * 0922 (Not Given - Provider: Donna Trammell, SUZANNE - Reason: IV Fluid Infusing) * 2100 (Due) Medication Order/ lactated ringers infusion 1,000 mL (CANCELED) 1,000 mL, IntraVENous, at 50 mL/hr, CONTINUOUS, Starting on Sat07/03/22 at 1000, Pre-op (day of surgery) * 1008 (New Bag - Provider: Bandar Burns RN) * 1322 (NoRateChange - Provider: Robert Cobb APRN - SALOON KEEPER) * 1413 (Paused - Provider: Robert Cobb APRN - SALOON KEEPER - Comment: Switch to gravity) * 1414 (Restarted - Provider: Robert Cobb APRN - SALOON KEEPER) * 1456 (New Bag - Provider: Robert Cobb APRN - SALOON KEEPER) * 1630 (Anesthesia Volume Adjustment - Provider: Robert Cobb APRN - SALOON KEEPER) * 1354 (Stopped - Provider: Donna Trammell RN) lactated ringers infusion (CANCELED) IntraVENous, at 125 mL/hr, CONTINUOUS, Starting on Sat07/03/22 at 1800, Post-op * 1637 (New Bag - Provider: Gypsy Stoner RN) * 2113 (New Bag - Provider: Chichi Kwong, SUZANNE) * 0520 (New Bag - Provider: Chichi Kwong, SUZANNE) * 1354 (Stopped - Provider: Donna Trammell, SUZANNE) Medication Order/ 0.9 % sodium chloride infusion IntraVENous, at 5-250 mL/hr, PRN, if patient receiving piggyback infusions and maintenance fluids are not ordered OR KVO fluids to protect IV site / prevent frequent line interruptions/ long duration, Starting on Sat07/03/22 at 1743, For piggyback infusion, administer at same rate as piggyback for atotal of 25 mL. Enter 25 mL into dose field and piggyback rate into rate field of order. If piggyback is infusing at a rate less than 100 mL/hr, enter 25 mL into dose field and 100 mL/hr into rate field of order. For KVO fluids, enter rate of 20 mL/hr or less into rate field of order., Post-op * 1339 (Stopped - Provider: Donna Trammell RN) benzocaine-menthol (CEPACOL SORE THROAT) lozenge 1 lozenge 1 lozenge, Oral, EVERY 2 HOURS PRN, Starting on Sat07/04/22 at 0033, Until Discontinued, Sore Throat * 0041 (Given - Provider: Chichi Kwong RN) bupivacaine (MARCAINE) 0.5 % injection (CANCELED) PRN, Starting on Sat07/03/22 at 1549, Until Sat07/03/22 at 1555, Intra-op * 1549 (Given - Provider: Bret Wetzel, DO - Comment: [place]) cyclobenzaprine (FLEXERIL) tablet 10 mg 10 mg, Oral, 3 TIMES DAILY PRN, Starting on Sat07/03/22 at 1601, Until Discontinued, Muscle spasms * 0516 (Given - Provider: Chichi Kwong RN) HYDROmorphone (DILAUDID) injection 0.25 mg (COMPLETED) HYDROmorphone (DILAUDID) 1.5mg IV is equivalent to morphine 10mg IV, 0.25 mg, IntraVENous, EVERY 5 MIN PRN, 2 doses, Starting on Sat07/03/22 at 1605, Until Discontinued, Pain Moderate (4-6), For PhaseI. If Phase II oral narcotics have been administered in the last 60 minutes, do not administer IV narcotics unless specifically approved by provider., PACU only * 1645 (Given - Provider: Diane Brandt RN) * 1650 (Given - Provider: Diane Brandt RN) HYDROmorphone [...] unless specifically approved by provider., PACU only * 1628 (Given - Provider: Diane Brandt RN) * 1634 (Given - Provider: Diane Brandt RN) HYDROmorphone (DILAUDID) injection 1 mg HYDROmorphone (DILAUDID) 1.5mg IV is equivalent to morphine 10mg IV, 1 mg, IntraVENous, EVERY 3 HOURS PRN, Starting on Sat07/03/22 at 1743, Until Discontinued, Pain Moderate (4-6), Pain Severe (7-10),If oral and IV narcotics ordered, use oral first and only use IV if oral is ineffective or cannot take oral. Do Not give oral and IV within 1 hour of each other unless specifically ordered., Post-op * 1753 (Given - Provider: Gypsy Stoner RN) * 2206 (Given - Provider: Chichi Kwong RN) * 0516 (Given - Provider: Chichi Kwong RN) ondansetron (ZOFRAN) injection 4 mg 4 mg, IntraVENous, EVERY 6 HOURS PRN, Starting on Sat07/03/22 at 1743, Until Discontinued, Nausea, Post-op * 0044 (Given - Provider: Chichi Kwong RN) * 0837 (Given - Provider: Donna Trammell RN) oxyCODONE-acetaminophen (PERCOCET) 5-325 MG per tablet 1 tablet(Linked Group 1) Mg/kg dosing is based on the oxycodone component., 1 tablet, Oral, EVERY 6 HOURS PRN, Starting on Sat07/03/22 at 1601, Until Discontinued, Pain Moderate (4-6), Maximum dose of acetaminophen is 4000 mgfrom all sources in 24 hours. * 0133 (Given - Provider: Chichi Kwong RN) * 0837 (Given - Provider: Donna Trammell RN) * 1435 (Given - Provider: Donna Trammell RN) oxyCODONE-acetaminophen (PERCOCET) 5-325 MG per tablet 2 tablet(Linked Group 1) Mg/kg dosing is based on the oxycodone component., 2 tablet, Oral, EVERY 6 HOURS PRN, Starting on Sat07/03/22 at 1601, Until Discontinued, Pain Severe (7-10), Maximum dose of acetaminophen is 4000 mg from all sources in 24 hours. * 0133 (See Alternative - Provider: Chichi Kwong RN) * 0837 (See Alternative - Provider: Donna Trammell RN) * 1435 (See Alternative - Provider: Donna Trammell RN) [...] on Sat07/04/22 at 1121, Until Discontinued, Cramping * 1213 (Given - Provider: Donna Trammell RN) sodium chloride flush 0.9 % injection 5-40 mL 5-40 mL, IntraVENous, PRN, Starting on Sat07/03/22 at 1743, Until Discontinued, Line Care, After every IV line use, For Line Patency: Peripheral IV = 5 mL; Midline or Central Line = 10 mL/lumen. If following IV push medication, administer flush at same rate as the IV push. Flush volume is determinedby type of infusion therapy being given. For non-viscous solutions use: Peripheral IV = 5 mL Midline or Central Line = 10 mL/lumen For viscous solutions (i.e. blood components, parenteral nutrition, contrast media, or after obtaining blood sample) use: Peripheral IV = 10 mL Midline or Central Line = 20 mL/lumen, Post-op Order Group 1: oxyCODONE-acetaminophen (PERCOCET) 5-325 MG per tablet 1 tabletJump to med Mg/kg dosing is based on the oxycodone component.
1 tablet, Oral, EVERY 6 HOURS PRN, Starting on Sat07/03/22 at 1601, Until Discontinued, Pain Moderate (4- 6)
Maximum dose of acetaminophen is 4000 mg from all sources in 24 hours.
Or oxyCODONE-acetaminophen (PERCOCET) 5-325 MG per tablet 2 tabletJump to med Mg/kg dosing is based on the oxycodone component.
2 tablet, Oral, EVERY 6 HOURS PRN, Starting on Sat07/03/22 at 1601, Until Discontinued, Pain Severe (7- 10)
Maximum dose of acetaminophen is 4000 mg from all sources in 24 hours.
Care Teams (unrecognized sec tion and content) Team MemberRelationshipSpecialtyStart DateEnd Date Jake Miramontes MD [address] [place] [address] PCP - GeneralObstetrics & Gynecology06/18/22Team MemberRelationshipSpecialtyStart DateEnd Date Jake Miramontes DO [address] [place] [address] PCP - GeneralObstetrics & Gynecology06/06/24Team MemberRelationshipSpecialtyStart DateEnd Date Karina Lopez DO [address] [place] [address] PCP - GeneralFamily Medicine11/01/23Team MemberRelationshipSpecialtyStart DateEnd Date Jake Miramontes DO [address] [place] [address] PCP - GeneralObstetrics & Gynecology06/06/24 Team Status: Active Member Role Status Dates PHYSICIAN NO FAMILY Primary Care Provider Active Team Status: Inactive Member Role Status Dates Ginna Morales PA-C Attending Provider Active Sta rt: August 03, 2025 End: August 03, 2025PHYSICIAN NO FAMILYPrimary Care ProviderActiveStart: August 03, 2025 End: August 03, 2025 Goals (unrecognized section and content) Goals may be documented in a n alternate section FOR RECORDS PERTAINING TO PATIENTS WHO ARE [...] BE BASED ON THE PRIMARY CLINICAL RECORDS. [facility]. provides no warranty or guarantee of the accuracy or completeness of information in this document.
--- OUTSIDE RECORDS SUMMARY | 2025-09-04 22:49 | XMS_ITS | Patient Health Record ---
Author Organization [facility] vices Address [address] [place], [place] [address] Care Team Providers Care Window Installation Subcontractor Name Role Phone Prema Cat Unavailable [phone] Allergies Allergen (clinical drug ingredient) Drug/Non Drug [...] nerves or to get rid of a hangover?NoCAGE-AID Lphlw6EdwtgboxbgkdtoNircpuyu PRAPARE Question Answer Notes Date Completed/Updated: 10/22/2023 braydene nt entered data What is your current housing situation? I have housing patient entered data Are you worried about losing your housing? No patient entered data What is the highest level of school that you have finished? 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 Check all that apply I choose not to answer this question Has lack of transportation kept you from medical appointments, meetings, work or from getting things needed for daily living?NoHow often do you see or talk to people that you care about and feel close to? (For example: talkingto friends on the phone, visiting friends or family, going to cheondoism or club meetings)3 to 5 times a weekpatient entered dataHow stressed are you? Stress is when someone feels tense, nervous, anxious, or can't sleep at nightbecause their mind is troubledA little bitpatient entered dataIn the past year have you spent more than 2 nights in a row in a nursing home, longterm, fci center, orjuvenile correctional facility?Nopatient entered dataAre you a refugee?Nopatient entered dataWhat country are you from?[place] Statespatient entered dataDo you feel physically and emotionally safe where you currently live?Yespatient entered dataIn the past year, have you been afraid of your partner or ex-partner?Nopatient entered dataPRAPARE Score:3 Problems Problem Type SNOMED Code ICD Code Onset Dates Problem Status W/U Status Risk Notes Problem Obesity due to exces s calories (055113390) Other obesity due to excess calories (E66.09) ActiveconfirmedProblemPityriasis alba (977178269)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)Active confirmedProblemBody mass index 35.00 to 39.99 (171274530114885)Body mass index [BMI] 38.0-38.9, adult (Z68.38)ActiveconfirmedProblemHypothyroidism (73093204) Hypothyroidism, unspecified type (E03.9)ActiveconfirmedProblemDyspnea (977359631)SOB (shortness of breath) (R06.02)ActiveconfirmedProblemElevated liver enzymes level (039223911)Elevated liver function tests (R79.89)Active confirmedProblemVasovagal syncope (234471466)Vasovagal syncope (R55)Active confirmedProblemHypersomnia (79514040)Hypersomnolence (G47.10)Activeconfirmed ProblemDizziness (710520743)Dizziness (R42)Activeconfirmed Comment:Still feels dizzy after standing for a long time. 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 She had extensive work up including detention monitor which showed normal sinus rhythm and no arrhythmias. She was referred to cardiology and was advised to c/w SSRI (She was on Wellbutrin) for depression but has not taken that is a long time. She keep saying that she wants something done for her problems, yet she is not following recommendations. She keep stating that her friend mentioned that this could be due to a blood disorder. I explained that I don't know what she is referring to but last CBC was fine and I explained that her dizziness is due to autonomic dysfunction/?Neurocardiogenic, she stated How did you know it is not a blood problem . I discussed the condition and all results with patient. Advised to start taking Wellbutrin again. Schedule follow up with Cardiology. I also offered her a referral to Dr Vanessa at [facility] but she stated she is not trying to seek attention and refused. Offered her to see psychiatry as I think she is depressed but she refused and stated she is not depressed., ProblemLoose stools (606299552)Loose stools (R19.5)ActiveconfirmedProblemChronic abdominal pain (424411629)Chronic abdominal pain (R10.9)Activeconfirmed Comment:Ongoing, neevr f/u with GI per notes Will recheck labs and stool samples Denies corrine blood in stool Diarrhea and constipation alteranting monthly no pain improvement with bentyl, no longer taking advised to avoid dairy, PVU, ProblemMixed anxiety and depressive disorder (082753270)Anxiety and depression (F41.8)Activeconfirmed Comment:Ongoing for the last 2 years, worsened over the last 2 months Start SSRI discussed and agreed to c/w conseling at [facility] to help with the relationship strain and coping techniques Advised on SE's and time to take effectiveness PVU, f/u in 1 month, ProblemConstipation (97543489)CN (constipation) (K59.00)Activeconfirmed Comment:Discussed to increase dietary fiber Prescribed Miralax.,Description:Constipation Plan Of Treatment No Information Insurance Providers Payer Name Payer Address Payer Phone Subscriber Number Group Number Insured Name Patient Relationship to Insured Coverage Start Date Coverage End Date zzDAnthem Dentaquest [facility] [address] [place] [address] [id number] Darius Avalos - patient is the [id number] 2022nthem [facility] [address] [place] [id number], JordanSelf - patient is the [id number] 2022Medicaid [facility] after Anthem[address] [place], [place] [id number], JordanSelf - patient is the insured 2022Medicaid [facility] after [address]them[address] [place], [place] [id number] Darius Avalos - patient is the [id number] 2022 Medical (General) History Surgical History Surgery Date(Month/Year) Gastric Sleeve 07/03/2022 Hospitalization History Reason Date(Month/Year) Gastric Sleeve 07/03/2022
--- OUTSIDE RECORDS SUMMARY | 2025-09-04 22:49 | XMS_ITS | Patient Health Record ---
Author Organization [facility] Serv[facility] es Address [address] [place] [address] Care Team Providers Care Principal Administrative Clerk Name Role Phone Dr. Robert Cordova Primary Care Provider Reason For Referral No Information Plan Of Treatment No Information Insurance Providers Payer Name Payer Address Payer Phone Subscriber Number Group Number Insured Name Patient Relationship to Insured Coverage Start Date Coverage End Date z[employer]-termed 11/27/22 [address] [place] [address] [id number] Yu NORIEGA - patient is the [id number]/25/2022zMEDICAID CFC after [employer]-termed 11/27/22[address] [place] [id number] NORIEGA - patient is the [id number]/25/2022zDENTAL DQ [employer]-termed 11/27/22[address] [place] [phone] [id number], JORDANSelf - patient is the [id number]/07/2022 zDental MEDICAID CFC after [employer]-termed 11/27/22[address] [place] [id number], JORDANSelf - patient is the [id number]/07/2022
--- OUTSIDE RECORDS SUMMARY | 2025-09-04 22:49 | XMS_ITS | Encounter Summary ---
Author Organization [facility] Address [address] [place] [address] Care Team Providers Care Septic Tank Setter Name Role Phone Unavailable Primary Care Provider Unavailabl e Encounter Details DateTypeDepartmentCare Team (Latest Contact Info)Isbciagkyye75/23/2024Clinisync Result Encounter [facility] External Department Unsolicited Geraldine Miramontes, DO [address] [place] [address] Social History Tobacco UseTypesPacks/DayYears UsedDateSmoking Tobacco: NeverAlcohol UseStandard Drinks/WeekCommentsNot Currently0 (1 standard drink = 0.6 oz pure alcohol) occasionalCommentsUnknownSex and Gender InformationValueDate RecordedSex Assigned at BirthNot on fileLegal FjnZjtibp36/15/2023 7:08 PM EDTGender Identity Not on fileSexual OrientationNot on filedocumented as of this encounter Plan of Treatment Not on file documented as of this encounter Procedures Procedure NamePriorityDate/TimeAssociated DiagnosisCommentsUS OB TRANSVAGINAL 05/19/2024 11:29 AM EDT documented in this encounter Results * US OB TRANSVAGINAL (05/19/2024 11:29 AM EDT)Anatomical RegionLaterality ModalityOtherSpecimen (Source)Anatomical Location / LateralityCollection Method / VolumeCollection TimeReceived Time05/19/2024 11:29 AM EDT Narrative 05/19/2024 11:31 AM EDT [facility] ?[address] ? [place] [address] ? Ultrasound Report ? Signed ? Patient: Kollman,Phillip N ?MR#: [id number] ?? : 1995 ?Acct:[id number] ?? Age/Sex: 29 / F ?ADM Date: 07/23/24 ?? Loc: [facility] ? Attending Dr: Geraldine Miramontes D.O. ? Ordering Physician: Geraldine Miramontes D.O. ?? Date of Service: 05/19/24 ?? Procedure(s): US OB transvaginal ?? Accession Number(s): [id number] ? cc: Geraldine Miramontes D.O.; Physician,Non-Staff M.D. ? [facility] ? [address] ? [place] [address] ? Patient Name: ?? PHILLIP AVALOS ? MRN: [facility]:[id number] ? date: 1995 ?Sex: F ?? Assigned [facility] ?? Current [facility] ?? Accession/Order Number: [id number] ?? Exam Date: 05/19/2024 ??10:41 ?Report Date: 05/19/2024 ??11:29 ? At the request of: ?? GERALDINE ??FE ? Procedure: ??US OB transvaginal ? EXAMINATION: US OB transvaginal ? HISTORY: VIABILITY ? COMPARISON: No relevant comparison available. ? FINDINGS: ? GESTATIONAL SAC: Present and normal appearing. ?? YOLK SAC: Present and normal appearing. ?? POLE: Present and normal appearing. ?? CARDIAC: Present. ? UTERUS: Normal size and appearance. ?? OVARIES: Right: Contains a 4.5 cm cyst. Left: Normal. ?? CERVIX: 5.4 cm in length and closed. ?? CUL-DE-SAC: Normal. ?? OTHER: None. ? AGE BY LMP: 6 weeks 1 day ?? KIERRA BY LMP: 01/11/2025 ?? AGE BY US CRL: 6 weeks 3 days ?? KIERRA BY US CRL: 01/09/2025 ? US/US OB transvaginal ?? IMPRESSION: ? 1. Single live intrauterine . ? Electronically authenticated by: GILDARDO ??SHANE ?? Date: 05/19/2024 ??11:29 ? Dictated By: ?Gildardo Estevez M.D. ? Signed By: ?05/19/24 1131 ? DD/ 1129 ? TD/TT: ? Forensic Science Technician: Procedure Note Radiology, Radiologist, MD - 05/19/2024 [place] [address] Ultrasound Report Signed Patient: Phillip Avalos NMR#: [id number] : 1995Acct:[id number] Age/Sex: 29 / FADM Date: 05/19/24 Loc: [facility] Attending Dr: Geraldine Miramontes D.O. Ordering Physician: Geraldine Miramontes D.O. Date of Service: 05/19/24 Procedure(s): US OB transvaginal Accession Number(s): [id number] cc: Geraldine Miramontes D.O.; Physician,Non-Staff [place] [place] [address] Patient Name: PHILLIP AVALOS MRN: [id number] date: 1995 Sex: F Assigned Patient Location: [facility] Current Patient Location: [facility] Accession/Order Number: [id number] Exam Date: 05/19/2024 10:41 Report Date: 05/19/2024 [...] M.D. Signed By:05/19/24 1131 DD/ 1129 TD/TT: Forensic Science Technician: Authorizing ProviderResult TypeResult StatusCorey Fe DOCLINISYNC IMAGINGFinal Result documented in this encounter Visit Diagnoses Not on filedocumented in this encounter
--- OUTSIDE RECORDS SUMMARY | 2025-09-04 22:49 | XMS_ITS | Clinical Summary ---
Author Organization [facility] Address [address] [place] [address] Care Team Providers Care Account Manager Employee Benefits Name Role Phone Unavailable Primary Care Provider Unavailabl e Allergies Active AllergyReactionsCriticalityNoted DateCommentsLatexItching,RashLow 09/22/2020 Other Reaction(s): Unknown Sulfamethoxazole-TahuvmdhxvwoZfomgLjo13/05/2017 Other Reaction(s): Unknown Hives to face Hives to face Hives to face Hives to face Medications MedicationSigDispense QuantityRefillsLast FilledStart DateEnd DateStatus omeprazole (PriLOSEC) [address] capsule Take 20 mg by mouth before breakfast.5Active midodrine (Proamatine) 5 mg tablet Indications:Vasovagal syncopeTake 1 tablet (5 mg) by mouth three times daily. 90 tablet 11151ctive Active Problems ProblemNoted DateDiagnosed DateChronic abdominal pain08/18/2025onstipation 08/18/20255319Fkfyzhvtj43/22/0675Nmkhmul87/22/2025Elevated liver function tests 08/18/20253111Qcljlisshcg87/22/5547Vfbqdefkafumra08/22/2025Loose vzalyd31 Mixed anxiety and depressive qypvtjih07/22/2025Other obesity due to excess nqmtakml24/22/2025Pityriasis alba1Vasovagal rvriflt4008/18/2025GERD (gastroesophageal reflux disease)08/16/2025Obesity (BMI 30-39.9)08/16/2025 Encounter for insertion of Mirena IUD03/31/2025H/O gastric nyjgih7811/20/2024 Missed bhmjgq924Positive blood test04/27/2024Essential auetidojhtsl88/06/2022Prolonged PTT01/07/3192Umkwpnib45/19/2013 Encounters DateTypeDepartmentCare OpyaNkgkihgikbk96/22/2025 2:20 PM EDTOffice Visit [facility] [address] [place] [facility] [place] [address] Alexy Ron MD Vasovagal syncope (Primary Dx)08/18/2025Orders Only [facility] [address] [place] [facility] [address] Saniya [place] MA Syncope and collapse (Primary Dx)from Last 3 Months Family History RelationNameStatusCommentsBrotherAliveFatherAliveMotherAliveSisterAlive Social History Tobacco UseTypesPacks/DayYears UsedDateSmoking Tobacco: NeverSmokeless Tobacco: Current Tobacco Cessation:Ready to Q uit: Not Asked; Counseling Given: Not Answered Comments:Vape all day long Alcohol UseStandard Drinks/WeekCommentsYes0 (1 standard drink = 0.6 oz pure alcohol)occasionalCommentsUnknownSex and Gender InformationValueDate RecordedSex Assigned at IoulqOjonif82/22/2025 1:50 PM EDTLegal SexFemale 07/28/2025 2:54 PM EDTGender ZsgpazdiZczina25/22/2025 1:50 PM EDTSexual OrientationHeterosexual or Kdmkcflf01/22/2025 1:50 PM EDT Last Filed Vital Signs Vital SignReadingTime TakenCommentsBlood Ozlcwnaj686/7008/18/2025 2:50 PM EDT Lyqin056808/18/2025 2:50 PM EDTTemperature--Respiratory Rate--Oxygen Iltjpsztwm89% 08/18/2025 2:50 PM EDTInhaled Oxygen Concentration--Ykphbn78.9 kg (154 lb) 08/18/2025 2:36 PM EDTHeight--Body Mass Index-- Plan of Treatment DateTypeDepartmentCare Team (Latest Contact Info)Rirnytgmswe81/17/2025 3:00 PM ESTOffice Visit [facility] [address] [place] [address] Alexy Ron MD [address] [place] [address] Health MaintenanceDue DateLast DoneCommentsDepression Foegfxxtk50/30/2005 Varicella Vaccines (1 of 2 - 13+ 2-dose series)2006dult Ititpsg1601/24/2015 HPV Vaccines (1 - 3-dose SCDM series)01/25/2020HPV/Vczwlm2801/24/2023OVID-19 Vaccine ( - 2024- season)2025Influenza Vaccine (#1) Cervical Cancer Wswwstcgu52/30/2026Pap Smear6001/24/2023Zoster Vaccines (1 of 2)2043HIB FzmymlulQibshtknn23/21/1994, 1993, 1993, Additional history existsIPV YffmfoqtUtzvrozgz77/06/1999, 1993, 1993, Additional history existsPneumococcal Vaccine: Pediatrics (0 to 5 Years) and At-Risk Patients (6 to 64 Years)Aged Out07/11/2011No longer eligible based on patient's age to complete this topicMeningococcal B VaccineAged OutNo longer eligible based on patient's age to complete this topicMeningococcal VaccineAged OutNo longer eligible based on patient's age to complete this topic Rotavirus VaccinesAged OutNo longer eligible based on patient's age to complete this topic Insurance
--- OUTSIDE RECORDS SUMMARY | 2025-09-04 22:49 | XMS_ITS | Encounter Summary ---
Author Organization [facility] Address [address] [place] [address] Care Team Providers Care Waiter/Waitress Captain Name Role Phone Unavailable Primary Care Provider Unavailabl e Encounter Details DateTypeDepartmentCare Team (Latest Contact Info)Dmmlijflllj65/19/2024Clinisync Result Encounter [facility] External Department Unsolicited Geraldine Miramontes, DO [address] [place] [address] Social History Tobacco UseTypesPacks/DayYears UsedDateSmoking Tobacco: NeverSmokeless Tobacco: NeverAlcohol UseStandard Drinks/WeekCommentsNot Currently0 (1 standard drink = 0.6 oz pure alcohol)occasionalCommentsYesSex and Gender InformationValue Date RecordedSex Assigned at BirthNot on fileLegal EtsXanuex46/15/2023 7:08 PM EDTGender IdentityNot on fileSexual OrientationNot on filedocumented as of this encounter Miscellaneous Notes * Result Encounter Note - Althea Esparza LPN - 10/15/2024 4:16 PM EST Sent! documented in this encounter Plan of Treatment Not on file documented as of this encounter Procedures Procedure NamePriorityDate/TimeAssociated DiagnosisCommentsUS OB GROWTH 10/15/2024 4:12 PM EST documented in this encounter Results * US OB GROWTH (10/15/2024 4:12 PM EST)Anatomical RegionLateralityModalityOther Specimen (Source)Anatomical Location / LateralityCollection Method / Volume Collection TimeReceived Time10/15/2024 4:12 PM EST Narrative 10/15/2024 4:14 PM EST [facility] ?[address] ? [place] [address] ? Ultrasound Report ? Signed ? Patient: PHILLIP AVALOS N ?MR#: [id number] ?? : 1995 ?Acct:[id number] ?? Age/Sex: 29 / F ?ADM Date: //24 ?? Loc: [facility] ? Attending Dr: Geraldine Miramontes D.O. ? Ordering Physician: Geraldine Miramontes D.O. ?? Date of Service: 10/15/24 ?? Procedure(s): US OB growth ?? Accession Number(s): [id number] ? cc: Geraldine Miramontes D.O.; Physician,Non-Staff M.D. ? [facility] ? [address] ? [place] [address] ? Patient Name: ?? PHILLIP Isaak VEGAGONSALO ? MRN: [facility]:[id number] ? date: 1995 ?Sex: F ?? Assigned [facility] ?? Current [facility] ?? Accession/Order Number: [id number] ?? Exam Date: 10/15/2024 ??15:09 ?Report Date: 10/15/2024 ??16:12 ? At the request of: ?? GERALDINE ??FE ? Procedure: ??US OB growth ? EXAMINATION: US OB growth ? HISTORY: INCONSISTENT SIZE ? COMPARISON: No relevant comparison available. ? FINDINGS: ? Heart Rate: 157 bpm ?? Amniotic Fluid Volume: 11.4 cm, largest fluid pocket 4.2 cm ?? Number: 1 ?? Position: Cephalic presentation, longitudinal lie ? BIOMETRY: ?? BPD: 7.93 cm; 31 weeks 6 days; >97 % HC: 28.39 cm; 31 weeks 6 days; >97 % AC: 26.33 cm; 30 weeks 3 days; >97 % FL: 5.51 cm; 29 weeks 0 days; 81.20 % ?? EFW: 1682.22 g; >97 %, 3 lbs. 6 oz. FL/AC: 20.93 ?? FL/BPD: 69.48 ?? HC/AC: 1.08 ? GESTATIONAL AGE: ?? Age by EDC: 27 weeks 3 days ?? KIERRA by EDC: 2025-01-11 ?? Age by US: 30 weeks 0 days ?? KIERRA by US: 2024-12-24 ? US/US OB growth ?? IMPRESSION: ? Mildly prominent lateral ventricles as well as fluid surrounding the cortex. ?? Further evaluation is recommended ? BPD, head circumference, abdominal circumference and estimated weight ?? greater than the 97th percentile ? Electronically authenticated by: NATALIE ??BILL ?? Date: 10/15/2024 ??16:12 ? Dictated By: ?Natalie Khan M.D. ? Signed By: ?10/15/24 1614 ? DD/ 1612 ? TD/TT: ? Pot Liner: Procedure Note Radiology, Radiologist, MD - 10/15/2024 [place] [address] Ultrasound Report Signed Patient: PHILLIP AVALOS NMR#: [id number] : 1995Acct:[id number] Age/Sex: 29 / FADM Date: 10/15/24 Loc: [facility] Attending Dr: Geraldine Miramontes D.O. Ordering Physician: Geraldine Miramontes D.O. Date of Service: 10/15/24 Procedure(s): US OB growth Accession Number(s): [id number] cc: Geraldine Miramontes D.O.; Physician,Non-Staff MNataliia The [address] [address] Patient Name: PHILLIP AVALOS MRN: [facility]:[id number] date: 1995 Sex: F Assigned Patient Location: [facility] Current Patient Location: [facility] Accession/Order Number: [id number] Exam Date: 10/15/2024 15:09 Report Date: 10/15/2024 [...] Khan M.D. Signed By:10/15/241613 DD/ 11 TD/TT: Pot Liner: Authorizing ProviderResult TypeResult StatusCorey Fe DOCLINISYNC IMAGINGFinal Result documented in this encounter Visit Diagnoses Not on filedocumented in this encounter
--- OUTSIDE RECORDS SUMMARY | 2025-09-04 22:49 | XMS_ITS | Encounter Summary ---
Author Organization [facility] Address [address] [place] [address] Care Team Providers Care Classification Counselor Name Role Phone Unavailable Primary Care Provider Unavailabl e Encounter Details DateTypeDepartmentCare Team (Latest Contact Info)Sgdamesttxo81/05/2024Clinisync Result Encounter [facility] External Department Unsolicited Geraldine Miramontes, DO [address] [place], [place] [id number] Social History Tobacco UseTypesPacks/DayYears UsedDateSmoking Tobacco: NeverSmokeless Tobacco: NeverAlcohol UseStandard Drinks/WeekCommentsNot Currently0 (1 standard drink = 0.6 oz pure alcohol)occasionalCommentsYesSex and Gender InformationValue Date RecordedSex Assigned at BirthNot on fileLegal OynEdjsjn65/15/2023 7:08 PM EDTGender IdentityNot on fileSexual OrientationNot on filedocumented as of this encounter Plan of Treatment Not on file documented as of this encounter Procedures Procedure NamePriorityDate/TimeAssociated DiagnosisCommentsUS OB CERVICAL LENGTH 09/01/2024 11:50 AM EST documented in this encounter Results * US OB CERVICAL LENGTH (09/01/2024 11:50 AM EST)Anatomical RegionLaterality ModalityOtherSpecimen (Source)Anatomical Location / LateralityCollection Method / VolumeCollection TimeReceived Time09/01/2024 11:50 AM EST Narrative 09/01/2024 11:53 AM EST [facility] ?[address] ? [place] [address] ? Ultrasound Report ? Signed ? Patient: KOLLMAN,PHILLIP N ?MR#: [id number] ?? : 1995 ?Acct:[id number] ?? Age/Sex: 29 / F ?ADM Date: 11/05/24 ?? [facility] ? Attending Dr: Geraldine Miramontes D.O. ? Ordering Physician: Geraldine Miramontes D.O. ?? Date of Service: 09/01/24 ?? Procedure(s): US OB cervical length ?? Accession Number(s): [id number] ? cc: Geraldine Miramontes D.O.; Physician,Non-Staff M.D. ? [facility] ? [address] ? [place] [address] ? Patient Name: ?? PHILLIP AVALOS ? MRN: [facility]:[id number] ? date: 1995 ?Sex: F ?? Assigned [facility] ?? Current [facility] ?? Accession/Order Number: [id number] ?? Exam Date: 09/01/2024 ??10:25 ?Report Date: 09/01/2024 ??11:50 ? At the request of: ?? GERALDINE ??FE ? Procedure: ??US OB cervical length ? EXAMINATION: US OB anatomy, US OB [...] by current US: 2024-12-31 ? US/US OB cervical length ?? IMPRESSION: ? Large for gestational age. Estimated weight greater than the 97th ?? percentile ? Otherwise normal anatomy scan ? Closed cervix measuring 4.1 cm length ? *Reference: [employer] Practice Guideline for the performance of Obstetric ?? Ultrasound ?? Examinations, July 28, 2007. ? Electronically authenticated by: NATALIE ??BILL ?? Date: 09/01/2024 ??11:50 ? Dictated By: ?Natalie Khan M.D. ? Signed By: ?09/01/243 ? DD/ 1150 ? TD/TT: ? Kayaking Instructor: Procedure Note Radiology, Radiologist, MD - 09/01/2024 [place] [address] Ultrasound Report Signed Patient: PHILLIP AVALOS NMR#: [id number] : 1995Acct:[id number] Age/Sex: Date: 09[birth year]01/24 Loc: [facility] Attending Dr: Geraldine Miramontes D.O. Ordering Physician: Geraldine Miramontes D.O. Date of Service: 09/01/24 Procedure(s): US OB cervical length Accession Number(s): [id number] cc: Geraldine Miramontes D.O.; Physician,Non-Staff M.D. The [address] [address] Patient Name: PHILLIP AVALOS MRN: [id number]:[id number] date: 1995 Sex: F Assigned Patient Location: [facility] Current Patient Location: [facility] Accession/Order Number: [id number] Exam Date: 09/01/2024 10:25 Report Date: 09/01/2024 [...] M.D. Signed By:09/01/24 1153 DD/ 1150 TD/TT: Kayaking Instructor: Authorizing ProviderResult TypeResult StatusCorey Fe DOCLINISYNC IMAGINGFinal Result documented in this encounter Visit Diagnoses Not on filedocumented in this encounter
== END 2025-09-04 23:44 | disposition home or self-care (01) ==
PROVIDERS: Emergency Provider Internal Medicine
DX: B34.9 Viral infection, unspecified (principal)
CPT/HCPCS: 99281